=== PATIENT | female | born 1960 | race Caucasian/White ===

== ENCOUNTER → 2017-12-25 13:35 | Outpatient (CLI) | payer MEDICAID, SELFPAY ==
--- NOTE | 2017-12-25 13:40 | RAD_ITS ---
STUDY: X-RAY CHEST REASON FOR EXAM: Female, 57 years old. Follow-up pneumonia. TECHNIQUE: Frontal and lateral views of the chest. COMPARISON: 01/24/2006. FINDINGS: The lungs are clear and expanded. There is no demonstrated pleural abnormality. Normal size heart. Normal mediastinum and ziggy. Normal visualized pulmonary arteries. Normal visualized aortic arch and descending thoracic aorta. Normal visualized thoracic spine. Normal visualized ribs, clavicles, and shoulders. There is no demonstrated abnormality of the visualized soft tissue structures of the upper abdomen. RAD/Chest PA and Lateral IMPRESSION: Normal x-ray examination of the chest. Electronically Signed: Anup Escalante MD at 21:34 EDT , Service support ,
== END ==
DX: J18.9 Pneumonia, unspecified organism (principal)
CPT/HCPCS: 71046

== ENCOUNTER 2018-03-07 12:26 | Emergency (ER) | payer MEDICAID, SELFPAY ==
[2018-03-07 12:27] VITALS: BP 125/83; PULSE 93; RESP 16; TEMP 36.6; O2SAT 99; BMI 27.1
--- NOTE | 2018-03-07 12:43 | ED.DCSUM_ITS ---
- ER Visit Summary Date of Service: 03/07/18 Chief Complaint: Staple removal History of Present Illness: The patient is a 57 F who unbeknownst to her had a staple placed in her left parietal scalp reportedly during a surgery a little over week ago on her back. She went to wash her hair today and felt that and had some a look at it and they said it was a staple so she called the nurses line who advised her to come to emergency department the staple taken out. Physical Examination: Afebrile vital signs are stable The patient has a staple in the left parietal scalp. There is no evidence of infection. Emergency Department Course and Treatment: The staple was removed without difficulty patient will follow up with her doctors. Impression: 1. Staple removal by physician This note was generated with Document [employer] dictation software. It may contain incorrect words, spelling, and punctuation that were not noted in review of the chart prior to signing ED Disposition - Plan for ED Patient: Disposition: Home or Assisted Living Chief Complaint: Suture Remv Instructions: ED Wound Check Sutr Remove No Infec Referrals: Ml Oscar [Primary Care Provider] - As Needed
== END 2018-03-07 12:51 | disposition home or self-care (01) ==
PROVIDERS: Emergency Provider Emergency Medicine
DX: Z48.02 Encounter for removal of sutures (principal); I73.9 Peripheral vascular disease, unspecified; I10 Essential (primary) hypertension; Z87.891 Personal history of nicotine dependence
CPT/HCPCS: 99282

== ENCOUNTER → 2018-12-11 12:55 | Outpatient (CLI) | payer MEDICAID, SELFPAY ==
[2018-12-11 12:23] VITALS: BMI 26.4
--- NOTE | 2018-12-11 12:56 | CT_ITS ---
STUDY: CT CHEST WITHOUT CONTRAST REASON FOR EXAM: Female, 58 years old. History of smoking. RADIATION DOSAGE (If Supplied By Facility): CTDIvol = ( 10.23 ) mGy, DLP = ( 340.02 ) mGycm TECHNIQUE: Transaxial imaging was performed without the administration of intravenous contrast material. Multiplanar coronal and sagittal images were reformatted. Individualized dose optimization techniques were used for this CT. COMPARISON: Chest x-ray December 25, 2017. FINDINGS: There is emphysema of the lungs. There are regions of bronchiectasis in the lower chest. Linear scarring or fibrosis. There is focal wedge-shaped region of scarring or atelectasis in the anterior aspect of the right middle lobe, series 2 image 82/114. There is no dominant mass or nodule. There is no demonstrated pleural abnormality. There are calcifications of the coronary arteries. Normal mediastinum. Normal hilar regions. Normal unenhanced pulmonary arteries. There is atherosclerotic calcification of the aortic arch with tortuosity and elongation of the aortic arch and descending thoracic aorta. There is mild degenerative change of the spine.. There is small hiatal hernia. CT/Chest without Contrast IMPRESSION: Emphysema with bronchiectasis and mild fibrotic densities. No dominant mass Atherosclerosis. Small hiatal hernia. Electronically Signed: Kody Willis MD at 14:00 EDT , Service support ,
== END ==
PROVIDERS: Family Provider Family Medicine; Referring Provider Nurse Practitioner Family; Visit Provider Nurse Practitioner Family
DX: Z12.2 Encounter for screening for malignant neoplasm of respiratory organs (principal); F17.209 Nicotine dependence, unspecified, with unspecified nicotine-induced disorders
CPT/HCPCS: 71250

== ENCOUNTER 2019-01-15 11:30 | Outpatient (RCR) | payer MEDICAID, SELFPAY ==
[2018-12-11 12:23] VITALS: BMI 26.4
== END 2019-01-15 23:59 ==
LOC: PSN 11:30
PROVIDERS: Family Provider Family Medicine; PCP Family Medicine; Referring Provider Nurse Practitioner Family; Visit Provider Nurse Practitioner Family
DX: F17.210 Nicotine dependence, cigarettes, uncomplicated (principal)
CPT/HCPCS: 99407

== ENCOUNTER 2019-02-04 10:44 | Outpatient (RCR) | payer MEDICAID, SELFPAY ==
[2018-12-11 12:23] VITALS: BMI 26.4
== END 2019-02-15 23:59 ==
LOC: PSN 10:44
PROVIDERS: Family Provider Family Medicine; PCP Family Medicine; Referring Provider Nurse Practitioner Family; Visit Provider Nurse Practitioner Family
DX: F17.209 Nicotine dependence, unspecified, with unspecified nicotine-induced disorders (principal)
CPT/HCPCS: 99407

== ENCOUNTER → 2019-10-09 12:34 | Outpatient (CLI) | payer MEDICARE, MEDICAID, SELFPAY ==
[2018-12-11 12:23] VITALS: BMI 26.4
--- NOTE | 2019-10-09 12:55 | RAD_ITS ---
STUDY: X-RAY - LUMBAR SPINE REASON FOR EXAM: Female, 58 years old. chronic low back pain; hx of lumber spinal fusion TECHNIQUE: 3 view(s) of the lumbar spine were obtained. COMPARISON: None FINDINGS: Bilateral posterior pedicle fusions at L3 and L4. L3-4 laminectomies. L3-4 surgical disc space fusion. The the disc spacer extends approximately 7 mm anterior to the anterior disc margin. Levoconvex scoliosis. Degenerative disc disease at the L1-2 and L2-3 levels. No compression fractures are seen. Vascular calcifications. RAD/Lumbar Spine 2 or 3 Views IMPRESSION: Multilevel degenerative disease and postoperative change as described. At L3-4, disc spacer extends approximately 7 mm anterior to the anterior disc margin. Electronically Signed: Jonn Padron MD at 0:39 EST Tel , Service support ,
[2019-10-09 13:45] LABS: Amphetamine Urine VISTA NEGATIVE (<1000 ng/mL); Barbiturate Urine VISTA NEGATIVE (< 200 ng/mL); Benzodiazepine Urine VISTA NEGATIVE (< 200 ng/mL); Cocaine Urine VISTA NEGATIVE (< 300 ng/mL); Ecstacy Urine VISTA POSITIVE (< 500 ng/mL); Methadone Urine VISTA NEGATIVE (< 300 ng/mL); PCP Urine VISTA NEGATIVE (< 25 ng/mL); THC Urine VISTA NEGATIVE (< 50 ng/mL); Vista UDS pH Range 6
== END ==
PROVIDERS: PCP Family Medicine; Referring Provider Anesthesiology Pain Medicine; Visit Provider Anesthesiology Pain Medicine
DX: F11.20 Opioid dependence, uncomplicated (principal); M51.36 Other intervertebral disc degeneration, lumbar region; Z98.1 Arthrodesis status
CPT/HCPCS: 72100; 80307

== ENCOUNTER → 2019-10-16 11:21 | Outpatient (CLI) | payer MEDICARE, SELFPAY ==
[2018-12-11 12:23] VITALS: BMI 26.4
[2019-10-16 12:32] LABS: Amphetamine Urine VISTA NEGATIVE (<1000 ng/mL); Barbiturate Urine VISTA NEGATIVE (< 200 ng/mL); Benzodiazepine Urine VISTA NEGATIVE (< 200 ng/mL); Cocaine Urine VISTA NEGATIVE (< 300 ng/mL); Ecstacy Urine VISTA POSITIVE (< 500 ng/mL); Methadone Urine VISTA NEGATIVE (< 300 ng/mL); PCP Urine VISTA NEGATIVE (< 25 ng/mL); THC Urine VISTA NEGATIVE (< 50 ng/mL); Vista UDS pH Range 5
== END ==
PROVIDERS: PCP Family Medicine; Referring Provider Anesthesiology Pain Medicine; Visit Provider Anesthesiology Pain Medicine
DX: F11.20 Opioid dependence, uncomplicated (principal)
CPT/HCPCS: 80307

== ENCOUNTER → 2020-05-29 | Outpatient (CLI) | payer MEDICARE, SELFPAY ==
[2018-12-11 12:23] VITALS: BMI 26.4
== END | disposition home or self-care (01) ==
LOC: LABSPEC 10:26
PROVIDERS: PCP Family Medicine; Referring Provider Family Medicine; Visit Provider Family Medicine
DX: R69 Illness, unspecified (principal)
CPT/HCPCS: 87635; C9803; U0003

== ENCOUNTER → 2020-06-04 09:00 | Outpatient (CLI) | payer MEDICARE, SELFPAY ==
[2018-12-11 12:23] VITALS: BMI 26.4
== END ==
PROVIDERS: PCP Family Medicine; Referring Provider Family Medicine; Visit Provider Family Medicine
DX: Z20.828 Contact with and (suspected) exposure to other viral communicable diseases (principal); R51 Headache; R19.7 Diarrhea, unspecified
CPT/HCPCS: 87635; C9803; U0003

== ENCOUNTER → 2020-07-13 12:49 | Outpatient (CLI) | payer MEDICARE, SELFPAY ==
[2018-12-11 12:23] VITALS: BMI 26.4
[2020-07-13 14:05] LABS: Amphetamine Urine VISTA NEGATIVE (<1000 ng/mL); Barbiturate Urine VISTA NEGATIVE (< 200 ng/mL); Benzodiazepine Urine VISTA NEGATIVE (< 200 ng/mL); Cocaine Urine VISTA NEGATIVE (< 300 ng/mL); Ecstacy Urine VISTA POSITIVE (< 500 ng/mL); Methadone Urine VISTA NEGATIVE (< 300 ng/mL); PCP Urine VISTA NEGATIVE (< 25 ng/mL); THC Urine VISTA NEGATIVE (< 50 ng/mL); Vista UDS pH Range 5
== END ==
PROVIDERS: PCP Family Medicine; Referring Provider Anesthesiology Pain Medicine; Visit Provider Anesthesiology Pain Medicine
DX: F11.20 Opioid dependence, uncomplicated (principal)
CPT/HCPCS: 80307

== ENCOUNTER → 2020-12-03 10:30 | Outpatient (CLI) | payer MEDICARE, SELFPAY ==
[2018-12-11 12:23] VITALS: BMI 26.4
[2020-12-03 11:52] LABS: Amphetamine Urine VISTA NEGATIVE (<1000 ng/mL); Barbiturate Urine VISTA NEGATIVE (< 200 ng/mL); Benzodiazepine Urine VISTA NEGATIVE (< 200 ng/mL); Cocaine Urine VISTA NEGATIVE (< 300 ng/mL); Ecstacy Urine VISTA POSITIVE (< 500 ng/mL); Methadone Urine VISTA NEGATIVE (< 300 ng/mL); PCP Urine VISTA NEGATIVE (< 25 ng/mL); THC Urine VISTA NEGATIVE (< 50 ng/mL); Vista UDS pH Range 5
== END ==
PROVIDERS: PCP Family Medicine; Referring Provider Anesthesiology Pain Medicine; Visit Provider Anesthesiology Pain Medicine
DX: F11.20 Opioid dependence, uncomplicated (principal)
CPT/HCPCS: 80307

== ENCOUNTER 2020-12-11 14:01 | Outpatient (RCR) | payer MEDICARE, SELFPAY ==
[2018-12-11 12:23] VITALS: BMI 26.4
== END 2021-02-23 23:59 ==
LOC: IMMUN 14:01
PROVIDERS: PCP Family Medicine; Referring Provider Family Medicine; Visit Provider Family Medicine
DX: Z23 Encounter for immunization (principal)
CPT/HCPCS: 0001A; 0002A; 91300

== ENCOUNTER 2021-03-23 16:00 | Outpatient (RCR) | payer MEDICARE, MEDICAID, SELFPAY ==
[2018-12-11 12:23] VITALS: BMI 26.4
--- NOTE | 2021-02-11 16:48 | HP.PTEVAL_ITS ---
Patient's Visit Information JULIANN HIDALGO is a 60 year old F referred to Physical Therapy by Dr. Omer Hall MD with a diagnosis of Back pain, leg pain. Date of Evaluation: 02/11/21 Physical Therapist: Ole Dobbs, DONYAT, OCS, CSCS - Visit Plan Frequency: 2x /Week Duration: 4-6 Weeks Plan: 2x/week for 4-6 weeks for water therapy to include: 1. NS educationa nd core adn LE strength. 2. LB ROM and body mechanics. 3. Progress to I pool or home program. - Subjective L leg hurts wehn she walks or stands adn foot goes numb. That has been happening over a year. Also has back pain which is getting under control with injections and meds. LBP to 7/10 with bending for a period of time. Leg worse with stadning in one spot or walking too far. (>300 feet). Sleep is not a problem. Activities are effected in that cooking or standing in kitchen requires sitting breaks to get rid of numbness. Hard to go for walk for fitness but it hurts too much. Has to sit frequently. Not employed, disability from back. Has had back back surgery int he past but it has been a while4 years and has not seen surgeon lately. Already told she will need another surgery. Basic ADLS are going ok. Hobbies include outdoor work but is limited. - Pain LBP Pain Intensity (Out of 10): 0 Pain Intensity Range: 0, 7 L leg pain Pain Intensity (Out of 10): 1 Pain Intensity Range: 0, 9 Comment: L foot intermittently numb - Objective Walks well adn I, trasnfers I. Steps reciprocal without pain. L LB gets painful walking after about 300 feet. LB AROM ext mod limited and painful, flexion just stretchy, SB min limited and without pain. reflexes 2/3 patella an d achilles. Sensation LE WNL to gross light touch. Strength LE hips 3+, knees 4- adn ankles 4 without myotoaml problems. PA tenderness low back with mod pressure. Tenderness in soft tissue not apparent. Posture is kyphotic at T/S. - Goals Goal 1:: Back pain 50% vbetter adn 4/10 at worst and manageable Goal Time Frame: 4-6 Weeks Goal 2:: LEFS 50/80 Goal Time Frame: 4-6 Weeks Goal 3:: Pt I in appropriate ex to manage condition Goal Time Frame: 4-6 Weeks Goal 4:: abolish leg symptoms Goal Time Frame: 4-6 Weeks - Rehabilitation Potential Physical Therapy Diagnosis: Likely radiculopathy effecting mobility. Rehabilitation Potential: Fair - Anticipated Interventions Patient/Client Instruction: Educate patient on: Condition For the Purpose of:: To decrease pain, To increase ROM Therapeutic Exercise to Include: Strength training, Postural training, Flexibilty training, Gait and locomotor training, In an aquatic setting, Passive ROM, Active ROM, Dynamic Lumbar Stabilization For the Purpose of:: To decrease pain, To increase ROM, To improve muscle performance and motor function, To increase tolerance to activity/condition/position, To improve ability of physical actions for home/community/work/leisure Thank you for the opportunity to evaluate your patient. For Medicare and Medicare HMO plans, please review the plan of care and approve it. It will need to be FAXED BACK to us at [phone] for Medicare purposes. For Medicare only, by signing this I certify the plan of care. Please let me know if there are questions or concerns regarding this plan of care. Physician Signature: Date:
--- NOTE | 2021-03-23 16:23 | HP.PTREVAL_ITS ---
Dr. Omer Hall MD, It has been my pleasure to treat JULIANN HIDALGO over the last 8 visits for Back pain, leg pain. Please see the progress note below for an update on the physical therapy plan of care! Subjective: Pool did not help that much. Pain is still in LB at 4/10, L leg still hurts intermittently with stadning to 8/10 with foot numbness. Gone with sitting. To in a couple days. May get another MRI after approved by insurance. Objective/Function: LB ext max limited and painful mid LB. Flexion full and without pain. SB are OK. rotations are not apinful. Walking >300 feet still brings pain to leg. repeated PPU no effect. Plan Plan: d/c, pt back to doctor next week appropriately as therapy is not helping and she wishes to take next step(MRI?) vs continue therapy. Goals Goal 1:: Back pain 50% vbetter adn 4/10 at worst and manageable Goal Time Frame: 4-6 Weeks Goal Progress: Not Progressing Goal 2:: LEFS 50/80 Goal Time Frame: 4-6 Weeks Goal Progress: Not Progressing Goal 3:: Pt I in appropriate ex to manage condition Goal Time Frame: 4-6 Weeks Goal Progress: Not Progressing Goal 4:: abolish leg symptoms Goal Time Frame: 4-6 Weeks Goal Progress: Not Progressing Anticipated Interventions Patient/Client Instruction: Educate patient on: Condition For the Purpose of:: To decrease pain, To increase ROM Therapeutic Exercise to Include: Strength training, Postural training, Flexibilty training, Gait and locomotor training, In an aquatic setting, Pass cathy ROM, Active ROM, Dynamic Lumbar Stabilization For the Purpose of:: To decrease pain, To increase ROM, To improve muscle performance and motor function, To increase tolerance to activity/condition/position, To improve ability of physical actions for home/community/work/leisure Please do not hesitate to contact me at [phone] by phone or if you have questions or concerns regarding this new plan of care! Sincerely, Ole Dobbs, DPT, OCS, CSCS
--- NOTE | 2021-07-01 09:56 | HP.PTDCSUM ---
It has been my pleasure to treat JULIANN HIDALGO referred by Dr. Omer Hall MD, with the diagnosis of Back pain, leg pain for a total of 8 visit(s). Discharge Date: 03/23/21 Please see the following information for a summary of their discharge status. Subjective: Pool did not help that much. Pain is still in LB at 4/10, L leg still hurts intermittently with stadning to 8/10 with foot numbness. Gone with sitting. To in a couple days. May get another MRI after approved by insurance. LBP Pain Intensity (Out of 10): 4 L leg pain Pain Intensity (Out of 10): 0 % Improvement: 0 Objective/Function: LB ext max limited and painful mid LB. Flexion full and without pain. SB are OK. rotations are not apinful. Walking >300 feet still brings pain to leg. repeated PPU no effect. Goal 1:: Back pain 50% vbetter adn 4/10 at worst and manageable Goal Progress: Not Progressing Goal 2:: LEFS 50/80 Goal Progress: Not Progressing Goal 3:: Pt I in appropriate ex to manage condition Goal Progress: Not Progressing Goal 4:: abolish leg symptoms Goal Progress: Not Progressing Plan: d/c, pt back to doctor next week appropriately as therapy is not helping and she wishes to take next step(MRI?) vs continue therapy. Discharge Comments: Pt back to doctor for next medical step, does nto wish to continue therapy in water which has not helped to this point or trasnition to land ex. If there are questions or concerns regarding this patient's physical therapy, please feel free to call me at [phone]. Thank you for the referral of this patient. Sincerely, Ole Dobbs, DPT, OCS, CSCS Balance/Gait/Functional tests - Balance/Special Test Scores Lower Extremity Functional Score: 31
== END 2021-03-23 19:00 | disposition home or self-care (01) ==
LOC: PT 16:00
PROVIDERS: PCP Family Medicine; Visit Provider Anesthesiology Pain Medicine
DX: M54.9 Dorsalgia, unspecified (principal); M79.606 Pain in leg, unspecified
CPT/HCPCS: 97110; 97113; 97162; 97164

== ENCOUNTER → 2021-04-10 07:15 | Outpatient (CLI) | payer MEDICARE, MEDICAID, SELFPAY ==
[2018-12-11 12:23] VITALS: BMI 26.4
--- NOTE | 2021-04-10 07:30 | MRI_ITS ---
STUDY: MRI LUMBAR SPINE WITHOUT CONTRAST REASON FOR EXAM: Female, 60 years old. BACK AND LEFT LEG PAIN TECHNIQUE: Standardized fat and water weighted pulse sequences were obtained in the sagittal and axial following administration of . COMPARISON: None FINDINGS: Examination is mildly technically limited due to presence of metallic artifact obscuring L3 and L4 posterior elements. This can be further evaluated with CT. T11-T12: Normal endplates. Normal disc height, hydration and morphology. Normal bilateral facet joints. Normal central canal and bilateral lateral recesses. Normal bilateral intervertebral neural foramina. T12-L1: Normal endplates. Normal disc height, hydration and morphology. Normal bilateral facet joints. Normal central canal and bilateral lateral recesses. Normal bilateral intervertebral neural foramina. Conus medullaris terminates at L1 with normal cauda equina. L1-2: Mildly degenerated endplates. Severely decreased disc height, altered hydration and degenerative bulge morphology asymmetrically worse on the right. Normal bilateral facet joints. Normal central canal and bilateral lateral recesses. Normal bilateral intervertebral neural foramina. L2-3: Degenerated endplates. Normal disc height, altered hydration and degenerative bulge morphology. Normal bilateral facet joints. Canal is moderately stenotic. Foramina are severely stenotic on the right and mildly on the left. L3-4: Mildly degenerated endplates. Decreased disc height, altered hydration and asymmetric to the right degenerative bulge morphology. Normal bilateral facet joints. Canal is patent and widely decompressed with a laminectomy. Right foramen is severely stenotic and left is patent. L4-5: Mildly degenerated endplates. Normal disc height, hydration and morphology. Normal bilateral facet joints. Normal central canal and bilateral lateral recesses. Left foramen is moderately to severely stenotic, right is patent. L5-S1: Normal endplates. Normal disc height, altered hydration and degenerative bulge morphology. Normal bilateral facet joints. Normal central canal and bilateral lateral recesses. Normal bilateral intervertebral neural foramina. Normal visualized sacral ala. Normal visualized paraspinous soft tissue structures. MRI/Spine Lumbar (Routine) IMPRESSION: 1. L3-L4 laminectomy decompression with patent thecal sac and pedicular screw fusion. 2. Moderate L2-L3 spondylotic thecal sac stenosis. 3. Multilevel foraminal stenosis. 4. Consider CT for more definitive evaluation of hardware and adjacent bone. Electronically Signed: Sandra Jj MD at 16:56 EDT Tel , Service support ,
== END ==
PROVIDERS: PCP Family Medicine; Referring Provider Anesthesiology Pain Medicine; Visit Provider Anesthesiology Pain Medicine
DX: M47.816 Spondylosis without myelopathy or radiculopathy, lumbar region (principal); M48.061 Spinal stenosis, lumbar region without neurogenic claudication
CPT/HCPCS: 72148

== ENCOUNTER → 2021-08-10 14:13 | Outpatient (CLI) | payer MEDICARE, MEDICAID, SELFPAY ==
[2021-08-10 15:35] LABS: Amphetamine Urine VISTA NEGATIVE (<1000 ng/mL); Barbiturate Urine VISTA NEGATIVE (< 200 ng/mL); Benzodiazepine Urine VISTA NEGATIVE (< 200 ng/mL); Cocaine Urine VISTA NEGATIVE (< 300 ng/mL); Ecstacy Urine VISTA POSITIVE (< 500 ng/mL); Methadone Urine VISTA NEGATIVE (< 300 ng/mL); PCP Urine VISTA NEGATIVE (< 25 ng/mL); THC Urine VISTA NEGATIVE (< 50 ng/mL); Vista UDS pH Range 5
== END ==
PROVIDERS: PCP Family Medicine; Visit Provider Anesthesiology Pain Medicine
DX: F11.20 Opioid dependence, uncomplicated (principal)
CPT/HCPCS: 80307

== ENCOUNTER → 2022-06-22 | Outpatient (CLI) | payer MEDICARE, MEDICAID, SELFPAY ==
[2022-06-22 12:14] LABS: Amphetamine Urine VISTA NEGATIVE (<1000 ng/mL); Barbiturate Urine VISTA NEGATIVE (< 200 ng/mL); Benzodiazepine Urine VISTA NEGATIVE (< 200 ng/mL); Cocaine Urine VISTA NEGATIVE (< 300 ng/mL); Ecstacy Urine VISTA POSITIVE (< 500 ng/mL); Methadone Urine VISTA NEGATIVE (< 300 ng/mL); PCP Urine VISTA NEGATIVE (< 25 ng/mL); THC Urine VISTA NEGATIVE (< 50 ng/mL); Vista UDS pH Range 5
== END | disposition home or self-care (01) ==
PROVIDERS: PCP Family Medicine; Referring Provider Anesthesiology Pain Medicine; Visit Provider Anesthesiology Pain Medicine
DX: F11.20 Opioid dependence, uncomplicated (principal)
CPT/HCPCS: 80307

== ENCOUNTER → 2023-01-10 | Outpatient (CLI) | payer MEDICARE, MEDICAID, SELFPAY ==
[2023-01-10 14:00] LABS: Amphetamine Urine VISTA NEGATIVE (<1000 ng/mL); Barbiturate Urine VISTA NEGATIVE (< 200 ng/mL); Benzodiazepine Urine VISTA NEGATIVE (< 200 ng/mL); Cocaine Urine VISTA NEGATIVE (< 300 ng/mL); Ecstacy Urine VISTA POSITIVE (< 500 ng/mL); Methadone Urine VISTA NEGATIVE (< 300 ng/mL); PCP Urine VISTA NEGATIVE (< 25 ng/mL); THC Urine VISTA NEGATIVE (< 50 ng/mL); Vista UDS pH Range 6
== END | disposition home or self-care (01) ==
PROVIDERS: PCP Family Medicine; Referring Provider Anesthesiology Pain Medicine; Visit Provider Anesthesiology Pain Medicine
DX: F11.20 Opioid dependence, uncomplicated (principal)
CPT/HCPCS: 80307

== ENCOUNTER → 2024-01-11 | Outpatient (CLI) | payer MEDICARE, MEDICAID, SELFPAY ==
[2024-01-11 17:05] LABS: Amphetamine Urine VISTA NEGATIVE (<1000 ng/mL); Barbiturate Urine VISTA NEGATIVE (< 200 ng/mL); Benzodiazepine Urine VISTA NEGATIVE (< 200 ng/mL); Cocaine Urine VISTA NEGATIVE (< 300 ng/mL); Ecstacy Urine VISTA POSITIVE (< 500 ng/mL); Methadone Urine VISTA NEGATIVE (< 300 ng/mL); PCP Urine VISTA NEGATIVE (< 25 ng/mL); THC Urine VISTA NEGATIVE (< 50 ng/mL); Vista UDS pH Range 4
== END | disposition home or self-care (01) ==
PROVIDERS: PCP Family Medicine; Referring Provider Anesthesiology Pain Medicine; Visit Provider Anesthesiology Pain Medicine
DX: F11.20 Opioid dependence, uncomplicated (principal)
CPT/HCPCS: 80307

== ENCOUNTER → 2024-09-23 | Outpatient (CLI) | payer MEDICARE, MEDICAID, SELFPAY ==
--- NOTE | 2024-09-23 12:12 | RAD_ITS ---
STUDY: X-RAY - CERVICAL SPINE REASON FOR EXAM: Female, 63 years old. NECK PAIN TECHNIQUE: 2 view(s) of the cervical spine were obtained. COMPARISON: None FINDINGS: Normal anterior atlantoaxial articulation. Normal odontoid process. There is anatomic alignment of the C-spine from C1 to C3. 3 to 4 mm of posterior subluxation of C4 on C3. C4 and C5 with interbody fusion. There is 2 to 3 mm of anterior subluxation of C6 on C5. There is anatomic alignment from C6 to T1. There is straightening of the normal cervical lordosis, likely positional or due to pain. Normal vertebral bodies and endplates. There is multi-level degenerative disc disease with multilevel disc space narrowing. There is a normal relationship between C7 and T1 The soft tissue structures are unremarkable. RAD/Cerv Spine 2 or 3 Views IMPRESSION: Multilevel degenerative changes with chronic subluxations at no acute fracture or suspicious osseous lesion Electronically Signed: Jose Givens MD at 15:29 EST ,
== END | disposition home or self-care (01) ==
LOC: RAD 12:07
PROVIDERS: PCP Family Medicine; Referring Provider Anesthesiology Pain Medicine; Visit Provider Anesthesiology Pain Medicine
DX: M54.2 Cervicalgia (principal)
CPT/HCPCS: 72040

== ENCOUNTER → 2024-11-11 | Outpatient (CLI) | payer MEDICARE, SELFPAY ==
--- NOTE | 2024-11-11 09:38 | MRI_ITS ---
PROCEDURE: MRI lumbar spine without IV contrast REASON FOR EXAM: Pain, radiculopathy TECHNIQUE: Multisequence multiplanar MR images of the lumbar spine were obtained without the administration of intravenous contrast. COMPARISON: 04/10/2021 FINDINGS: Vertebral body heights are within normal limits. Negative for acute fracture or marrow replacement. Moderate degenerative endplate edema from L1-L3. Posterior fusion hardware at L3-4 with posterior decompression. Mild levoscoliosis. Conus medullaris is intact and terminates at L1. Moderate paraspinal muscle atrophy. L1-2: Diffuse posterior disc bulge. Mild bilateral facet arthrosis. Mild spinal stenosis. Moderate bilateral foraminal narrowing. L2-3: Diffuse posterior disc bulge eccentric to the right. Mild bilateral facet arthrosis and ligamentum flavum hypertrophy. Moderate spinal stenosis. Severe right and moderate left foraminal narrowing. L3-4: No focal disc abnormality or spinal stenosis. No left foraminal narrowing. Right neural foramen is poorly visualized due to susceptibility artifact from fixation hardware. L4-5: Posterior disc bulge eccentric to the left with annular fissure. Mild/moderate bilateral facet arthrosis. No significant spinal stenosis, however there is mild narrowing of the left lateral recess. Severe left and mild right foraminal narrowing. L5-S1: No focal disc abnormality, spinal stenosis or foraminal narrowing. Mild bilateral facet arthrosis. MRI/Spine Lumbar (Routine) IMPRESSION: 1. Acquired mild and moderate spinal stenosis at L1-2 and L2-3 respectively. 2. Acquired multilevel foraminal narrowing, severe on the right at L2-3 and on the left at L4-5. 3. Posterior fusion/decompression at L3-4. 4. Levoscoliosis. Reading Location: [facility]
== END | disposition home or self-care (01) ==
LOC: MRI 12:37
PROVIDERS: PCP Family Medicine; Referring Provider Student in an Organized Health Care Education/Training Program; Visit Provider Student in an Organized Health Care Education/Training Program
DX: M48.061 Spinal stenosis, lumbar region without neurogenic claudication (principal); Z98.1 Arthrodesis status
CPT/HCPCS: 72148

== ENCOUNTER 2025-04-02 23:05 | Emergency (ER) | payer MEDICARE, SELFPAY ==
[2025-04-02 23:05] VITALS: BP 162/92; PULSE 91; RESP 16; TEMP 36.8; O2SAT 94; BMI 26.1
--- NOTE | 2025-04-02 23:40 | EX.ED.DYSGE1 ---
HPI History of Present Illness Chief Complaint: Other, Pain/Inj Informant: patient and EMS Narrative Narrative: Patient is a 64-year-old female with past medical of hypertension hyperlipidemia and depression. She states she went to bed roughly 4 days ago as she normally would. When she awoke she noticed pain in tension in the left side of her neck. She states that she has been trying [id number] medications but she feels that the tension and pain has just worsened. She states to the point where she has a hard time turning her head secondary to the pain. She denies any trauma prior to the pain began. She denies any fevers or chills or sore throat. She denies any numbness tingling or weakness. However as her symptoms are not resolving she presents for evaluation [facility] Medical History Acid reflux Depression Hypertension High cholesterol Home Medications ?Medication ?Instructions ?Recorded ?Last Taken ?Type duloxetine 60 mg capsule,delayed 60 mg PO DAILY 12/11/18 Unknown History release (Cymbalta) pravastatin 10 mg tablet 10 mg PO DAILY 12/11/18 Unknown History pregabalin 100 mg capsule (Lyrica) 100 mg PO Q8H 12/11/18 Unknown History lisinopril 10 mg tablet 5 mg PO QDAY 10/07/24 Unknown History omeprazole 40 mg capsule,delayed 40 mg PO QDAY 10/07/24 Unknown History release tramadol 50 mg tablet 50 mg PO BID 10/07/24 Unknown History diazepam 5 mg tablet (Valium) 5 mg PO TID PRN muscle spasm 5 04/02/25 Unknown Rx days #15 tabs levothyroxine 25 mcg tablet 25 mcg PO DAILY 04/02/25 Unknown History oxycodone-acetaminophen 5 mg-325 1 tab PO Q6H PRN pain 3 days #12 04/02/25 Unknown Rx mg tablet (Percocet) tabs Allergy/AdvReac Type Severity Reaction Status Date / Time atorvastatin (From Lipitor) Allergy Severe Other Verified 04/02/25 23:08 cat dander Allergy Other Verified 04/02/25 23:08 Iodinated Contrast Media Allergy Angioedema Verified 04/02/25 23:08 (Iodinated Contrast- Oral and IV Dye) Family History Father Hypertension Mother Hypertension Surgical History H/O: hysterectomy Previous back surgery Social History Smoking Status: Current every day smoker tobacco type: cigarettes Tobacco: How many years used: 43 second hand exposure: No quit status: has quit before ROS ROS ED Constitutional Constitutional ED: Denies chills or fever(s) Eyes Eyes: Denies blurry vision or change in vision ENT ENT ED: Denies sore throat Cardiovascular Cardiovascular: Denies chest pain Respiratory/Chest Respiratory/Chest: Denies cough or dyspnea Gastrointestinal Gastrointestinal: Denies abdominal pain, diarrhea, nausea or vomiting Musculoskeletal Musculoskeletal: Reports neck pain Integumentary Denies Abrasions or rash Neurologic Neurologic: Denies headache(s), paresthesias or weakness Psychiatric Psychiatric: Reports depression Hematologic/Lymphatic Hematologic/Lymphatic: Denies easy bleeding or easy bruising Allergic/Immunologic Allergic/Immunologic ED: Denies mouth swelling or tongue swelling EXAM Physical Exam Const Vital Signs: 04/02/25 23:05 04/03/25 00:03 Temperature 98.3 F 98.0 F Temperature Source Oral Pulse Rate 91 73 Respiratory Rate 16 16 Blood Pressure 162/92 H 144/76 H Blood Pressure Mean 115 98 Pulse Ox 94 100 Positive well nourished and well developed General Appearance ED: well developed; Negative for pallor HEENT Reports moist mucous membranes HEENT Narrative: Normocephalic atraumatic No tongue or lip swelling no oral lesions no airway edema or compromise No secondary findings in the posterior pharynx to suggest infection Eyes PERRL and EOMs intact bilaterally General Eye ED: Negative for scleral icterus Neck Neck Narrative: No bony deformity or step-off of the cervical spine no midline tenderness to palpation There is left paracervical tension and spasm noted. Pain worsens with sidebending and rotation. No overlying soft tissue changes such as erythema warmth induration or fluctuance. No crepitus palpated. No meningeal signs present Resp normal respiratory effort and clear to auscultation bilaterally Cardio regular rate and regular rhythm Extremity normal to inspection Neuro oriented x3, CN's II-XII intact bilaterally and no sensory deficits noted Sensorium / Orientation: alert Motor Exam: strength 5/5 throughout Psych mental status grossly normal Skin no rashes or lesions noted and no wounds General Skin Exam: Negative for jaundice or pallor MDM MDM MDM Narrative Medical decision making narrative: Patient arrives here hypertensive but has a past medical history of this. She reported increasing/persistent left-sided neck pain with no trauma. On exam there is no midline tenderness and without trauma I have low concern for a compression fracture or spondylolisthesis. There is no overlying erythema or warmth induration or fluctuance to suggest cellulitis or abscess. Posterior pharynx exam does not show any type of secondary infection such as peritonsillar or retropharyngeal abscess. By exam there is tension and spasm present with pain with palpation that worsens with sidebending and rotation and this correlates with the fact that she awoke from sleep with her symptoms indicating she has an SCM spasm. Therefore this time there is no need for imaging or further testing and seeing be treated symptomatically and is otherwise safe for discharge History & Record Review Discussion w/independent historian: Patient Discharge Plan Triage Chief Complaint: Other, Pain/Inj ED Provider: Laz James Dx/Rx/DC Orders Clinical Impression: Spasm of cervical paraspinous muscle, Hypertension, Hyperlipidemia Instructions: ED Neck Spasm, No Trauma Prescriptions: New diazepam [Valium] 5 mg tablet 5 mg PO TID PRN (Reason: muscle spasm) 5 Days Qty: 15 0RF oxycodone-acetaminophen [Percocet] 5-325 mg tablet 1 tab PO Q6H PRN (Reason: pain) 3 Days Qty: 12 0RF No Action pregabalin [Lyrica] 100 mg capsule 100 mg PO Q8H duloxetine [Cymbalta] 60 mg capsule,delayed release(DR/EC) 60 mg PO DAILY pravastatin 10 mg tablet 10 mg PO DAILY lisinopril 10 mg tablet 5 mg PO QDAY omeprazole 40 mg capsule,delayed release(DR/EC) 40 mg PO QDAY tramadol 50 mg tablet 50 mg PO BID levothyroxine 25 mcg tablet 25 mcg PO DAILY Primary Care Provider: Roger Wilburn Referrals: Roger Wilburn MD [Primary Care Provider] - Activity Restrictions/Additional Instructions: Your history and exam is consistent with a spasm to your SCM muscle belly. You need to continue to stretch and heat the area to reduce pain and speed healing. Add the prescribed medications from the ER to help control symptoms and return should you have any further concerns. It will typically take 7 to 14 days for your symptoms to completely improve Print Language: Mauritanian Disposition Disposition: Home, Self Care Discharge Date/Time: 04/03/25 02:17
--- OUTSIDE RECORDS SUMMARY | 2025-04-02 23:53 | XMS RPT_ITS | CCD ---
Author Organization [facility] Care Team Providers Care Youth Accommodation Support Worker Name Role Phone Negrito Wilburn MD Primary Care Provider Negrito Wilburn MD Primary Care Provider Lorenza Major DO Unavailable LORENZA MAJOR Attending Unavailab le HARPSTERSURJITTATYANA Referring Unavailable MATTLEY, CHRISTOPHER B Primary Care Unavailab le Podlogar DESTINATION SIGN REPAIRER.Jessica WANG Unavailable Bursley, Roger Primary Care Unavailable Evelyn, Kate Attending Unavailable Evelyn, Kate Referring Unavailable Basali, Ayman Referring Unavailable Bursley, Roger Primary Care Unavailable Basali, Ayman Attending Unavailable Basali, Ayman Referring Unavailable Bursley, Roger Primary Care Unavailable Basali, Ayman Attending Unavailable Bursley, Roger Primary Care Unavailable Bursley, Roger Referring Unavailable Evelyn, Kate Attending Unavailable George Rowland Attending Unavailable Bursley, Roger Primary Care Unavailable [place] DESTINATION SIGN REPAIRER.Jeanne WANG Unavailable [place] DESTINATION SIGN REPAIRER.Jeanne WANG Unavailable [place] DESTINATION SIGN REPAIRER.Jeanne WANG Unavailable PODLOGARJESSICA Referring Unavailable MATTLEY, CHRISTOPHER B Primary Care Unavailab le PODLOGARJESSICA Referring Unavailable BURSLEY, CHRISTOPHER B Primary Care Unavailab le PODLOGAR, JESSICA Referring Unavailable MATTLEY, CHRISTOPHER B Primary Care Unavailab le MATTLEY, CHRISTOPHER B Referring Unavailab le BURSLEY, CHRISTOPHER B Primary Care Unavailab le PODLOGAR, JESSICA Referring Unavailable BURSLEY, CHRISTOPHER B Primary Care Unavailab le PODLOGAR, JESSICA Referring Unavailable NEGRITO WILBURN Primary Care Unavailab le PODLOGAR, JESSICA Attending Unavailable NEGRITO WILBURN Primary Care Unavailab mundo WILLS, ALFRED Attending Unavailable ALFRED WILLS Referring Unavailable NEGRITO WILBURN Primary Care Unavailab le KNOBLE, JEANNE Referring Unavailable NEGRITO WILBURN Primary Care Unavailab le PODLOGAR, JESSICA Referring Unavailable NEGRITO WILBURN Primary Care Unavailab le PODLOGAR, JESSICA Attending Unavailable NEGRITO WILBURN Primary Care Unavailab le NEGRITO WILBURN Attending Unavailab le NEGRITO WILBURN Primary Care Unavailab le PODLOGAR, JESSICA Attending Unavailable NEGRITO WILBURN Primary Care Unavailab le PODLOGAR, JESSICA Referring Unavailable NEGRITO WILBURN Primary Care Unavailab le PODLOGAR, JESSICA Referring Unavailable NEGRITO WILBURN Primary Care Unavailab le [place] DESTINATION SIGN REPAIRER.COLD ROLLING SUPERVISOR, Jeanne Unavailable Allergies Allergy Classification Reported Allergen(s) Allergy Type Date of Onset Reaction(s) Facility Contrast Media (1 source) Contrast media Substance Allergy [address] [facility] HMG-CoA Reductase Inhibitors (statins) (1 source) atorvastatin Drug Allergy Other: See Comments [facility] (20 sources) atorvastatin; Translations: [ATORVASTATIN CALCIUM] Drug Allergy Other: See Comments [facility] (20 sources) Contrast media; Translations: [CONTRAST DYE] Drug Allergy [address] [facility] (2 sources) atorvastatin Drug Allergy 9 Other [facility] (2 sources) Triiodobenzoic Acids Allergy to substance 9 Angioedema [facility] (1 source) atorvastatin Drug Allergy 5 [facility] (1 source) Iodinated Contrast Media Drug allergy (disorder) 5 [facility] (1 source) cat dander Drug allergy (disorder) 5 [facility] Medications Current Medications Medication Drug Class(es) Dates Sig (Normalized) Sig (Original) [id number] 200 actuat albuterol 0.09 mg/actuat metered dose inhaler (20 sources) beta2-Adrenergic Agonist Start: 09-07-2023 take 2 puff(s) by inhalation every four hours as needed for wheezing albuterol HFA (VENTOLIN HFA) 90 mcg/actuation inhaler Indications: Suspected COVID-19 virus infection , COPD with exacerbation (HCC) Inhale 2 Puffs as instructed every 4 hours as needed for wheezing/shortnes s of breath. 1 Each 2 09/07/2023 Active Comment on above: Inhale 2 Puffs as in structed every 4 hours as needed for wheezing/shortness of breath. amoxicillin 875 mg / clavulanate 125 mg oral tablet (1 source) Penicillin-class Antibacterial Start: 08-07-2023 End: 08-14-2023 take 1 tablet by mouth twice daily amoxicillin-clavu lanate potassium (AUGMENTIN) 875-125 mg per tablet Indications: Upper respiratory tract infection, unspecified type Take 1 tablet by mouth two times a day for 7 days. 14 tablet 0 08/07/2023 08/14/2023 Active Comment on above: Take 1 tablet by cee two times a day for 7 days. benzonatate 100 mg oral capsule (1 source) Non-narcotic Antitussive Start: 08-07-2023 End: 08-17-2023 take 2 capsules by mouth three times daily as needed benzonatate (TESSALON PERLE) 100 mg capsule Indications: Upper respiratory tract infection, unspecified type Take 2 capsules by mouth three times a day as needed for up to 10 days. 60 capsule 0 08/07/2023 08/17/2023 Active Comment on above: Take 2 capsules by out three times a day as needed for up to 10 days. betamethasone 0.5 mg/ml / clotrimazole 10 mg/ml topical cream (2 sources) Azole Antifungal, Corticosteroid Start: 01-27-2025 End: 02-10-2025 clotrimazole-beta methasone (LOTRISONE) cream Apply to affected area two times a day for 14 days. 45 g 01/27/2025 02/10/2025 Active Budesonide / formoterol (20 sources) Corticosteroid, beta2-Adrenergic Agonist Start: 01-08-2025 End: 07-07-2025 take 2 puff(s) by inhalation twice daily budesonide-formot wai (SYMBICORT) 80-4.5 mcg/actuation inhaler Indications: Chronic obstructive pulmonary disease, unspecified COPD type (HCC) Inhale 2 puffs as instructed two times a day. 14 g 5 01/08/2025 07/07/2025 Active Start: 11-09-2023 End: 01-08-2025 take 2 puff(s) by inhalation twice daily budesonide-formoterol (SYMBICORT) 80-4.5 mcg/actuation inhaler Indications: Chronic obstructive pulmonary disease, unspecified COPD type (HCC) Inhale 2 Puffs as instructed two times a day. 14 g 5 11/09/2023 01/08/2025 Discontinued Start: 11-09-2023 take 2 puff(s) by in halation twice daily budesonide-formoterol (SYMBICORT) 80-4.5 mcg/actuation inhaler Indications: Chronic obstructive pulmonary disease, unspecified COPD type (HCC) Inhale 2 Puffs as instructed two times a day. 14 g 5 11/09/2023 Active Start: 11-09-2023 End: 05-07-2024 take 2 puff(s) by inhalation twice daily budesonide-formoterol (SYMBICORT) 80-4.5 mcg/actuation inhaler Indications: Chronic obstructive pulmonary disease, unspecified COPD type (HCC) Inhale 2 Puffs as instructed two times a day. 14 g 5 11/09/2023 05/07/2024 Active Comment on above: Inhale 2 Puffs as in structed two times a day. 24 hr buPROPion hydrochloride 300 mg extended release oral tablet (20 sources) Aminoketone Start: End: take 1 tablet by mouth once daily buPROPion XL (WELLBUTRIN XL) 300 mg 24 hr tablet Indications: Recurrent major depressive disorder, in partial remission Take 1 tablet by mouth once daily. 90 tablet 1 09/24/2024 Active Start: 03-07-2022 End: 09-11-2023 take 1 tablet by mouth once daily buPROPion XL (WELLBUTRIN XL) 300 mg 24 hr tablet Indications: Recurrent major depressive disorder, in partial remission (HCC) Take 1 tablet by mouth once daily. 90 tablet 1 09/02/2022 03/15/2023 Discontinued Start: 09-03-2021 End: 03-07-2022 take 1 tablet by mouth once daily buPROPion XL (WELLBUTRIN XL) 150 mg 24 hr tablet Indications: Recurrent major depressive disorder, in partial remission (HCC) Take 1 tablet by mouth once daily. 30 tablet 5 09/03/2021 03/07/2022 Discontinued Start: 12-11-2018 take 1 tablet by cee twice daily Bupropion Hcl (Wellbutrin Sr) 100 mg tablet sustained-release 12 hr Active 100 MG PO TWICE A DAY December 11, 2018 12:00am Comment on above: Take 1 tablet by cee once daily. cephalexin 500 mg oral capsule (7 sources) Cephalosporin Antibacterial Start: End: take 1 capsule by mouth three times daily cephALEXin (KEFLEX) 500 mg capsule Indications: Pain of right thumb Take 1 capsule by mouth three times a day for 5 days. 15 capsule 06/05/2024 06/10/2024 Active Start: 11-19-2023 End: 11-26-2023 take 1 capsule by mouth twice daily cephALEXin (KEFLEX) 500 mg capsule Take 1 capsule by mouth two times a day for 7 days. 14 capsule 0 11/19/2023 11/26/2023 Active Comment on above: Take 1 capsule by mo [facility] two times a day for 7 days. cholecalciferol 0.05 mg oral capsule (20 sources) Vitamin D Start: 02-26-20 15 take 1 tablet by mouth once daily Cholecalciferol, Vitamin D3, 2,000 unit cap Take 1 tablet by mouth once daily. 0 02/25/2015 Active Comment on above: Take 1 tablet by cee once daily. levothyroxine sodium 0.025 mg oral tablet (15 sources) l-Thyroxine Start: 12-13-19 25 End: 03-13-20 25 take 1 tablet by mouth once daily levothyroxine (SYNTHROID) 25 mcg tablet Indications: Elevated TSH Take 1 tablet by mouth once daily. 90 tablet 2 03/14/2025 Active metFORMIN hydrochloride 500 mg oral tablet (20 sources) Biguanide Start: 10-16-19 End: 07-07-20 25 take 1 tablet by mouth twice daily at mealtime metFORMIN (GLUCOPHAGE) 500 mg tablet Indications: Prediabetes Take 1 tablet by mouth two times a day with meals. . 180 tablet 1 01/08/2025 07/07/2025 Active Start: 09-03-2021 End: 10-04-2023 take 1 tablet by mouth twice daily at mealtime metFORMIN (GLUCOPHAGE) 500 mg tablet Indications: Prediabetes Take 1 tablet by mouth twice daily with meals. . 180 tablet 1 09/02/2022 04/07/2023 Discontinued Comment on above: Take 1 tablet by cee twice daily with meals. . [facility] two times a [facility] with meals. . nitroglycerin 0.4 mg sublingual tablet (20 sources) Nitrate Vasodilator Start: 02-17-20 nitroglycerin sublingual (NITROSTAT) 0.4 mg SL tablet Indications: Chest pain, unspecified type Dissolve 1 tablet under the tongue every 5 minutes as needed for chest pain. 25 tablet 02/16/2023 Active Comment on above: Dissolve 1 tablet un raoul the tongue every 5 minutes as needed for chest pain. polyethylene glycol 3350 112018 mg / potassium chloride 2970 mg / sodium bicarbonate 6740 mg / sodium chloride 5860 mg / sodium sulfate 18712 mg powder for oral solution (1 source) Osmotic Laxative Start: 11-24-19 End: 11-24-19 peg 3350-Electrolytes (GOLYTELY) 236-22.74-6.74 -5.86 gram suspension Indications: Screening for colon cancer , Tubulovillous adenoma Take 4,000 mL by mouth one time only for 1 dose. Refer to printed prep instructions from your provider. 4000 mL 0 11/24/2023 11/24/2023 Active Comment on above: Take 4,000 mL by [facility] one time only for 1 dose. Refer to printed prep instructions from your provider. pregabalin 100 mg oral capsule (20 sources) Start: 12-12-19 End: 09-03-20 take 1 capsule by mouth twice daily, then take 1 capsule by mouth three times daily pregabalin (LYRICA) 100 mg capsule Indications: Lumbar stenosis with neurogenic claudication Take 1 capsule by mouth two times a day for 90 days. Take one capsule three times a day 60 capsule 2 06/05/2024 Active Comment on above: Take 1 capsule by mo [facility] twice daily for 90 days. rosuvastatin calcium 20 mg oral tablet (20 sources) HMG-CoA Reductase Inhibitor Start: 09-15-20 End: 05-01-20 take 1 tablet by mouth once daily at bedtime rosuvastatin (CRESTOR) 20 mg tablet Indications: Hyperlipidemia, mixed Take 1 tablet by mouth daily at bedtime. 90 tablet 1 11/02/2024 05/01/2025 Active Start: 03-09-2022 End: 09-11-2023 take 1 tablet by mouth once daily at bedtime rosuvastatin (CRESTOR) 20 mg tablet Take 1 tablet by mouth daily at bedtime. 90 tablet 1 09/08/2022 03/15/2023 Discontinued Comment on above: Take 1 tablet by cee th daily at bedtime. traMADol hydrochloride 50 mg oral tablet (20 sources) Opioid Agonist Start: 03-04-2020 take 1 tablet by mouth twice daily traMADol (ULTRAM) 50 mg tablet Take 50 mg by mouth twice daily. 03/04/2020 Active Start: 03-04-2020 take 1 tablet by cee th three times daily traMADol (ULTRAM) 50 mg tablet Take 50 mg by mouth three times daily. 0 03/04/2020 Active Comment on above: Take 50 mg by mouth three times daily. Take 50 mg by mouth twice daily. Completed/Discontinued Medications Medication Drug Class(es) Dates Sig (Normalized) Sig (Original) calcium chloride 0.0014 meq/ml / potassium chloride 0.004 meq/ml / sodium chloride 0.103 meq/ml / sodium lactate 0.028 meq/ml injectable solution (1 source) Start: 04-09-2024 End: 04-09-2024 lactated ringers iv infusion colchicine 0.6 mg oral tablet (7 sources) Start: 06-07-2024 End: 12-03-2024 colchicine 0.6 mg tablet Take 2 tabs by mouth, followed by 1 tab one hour later for gout flare. May repeat in 1 week. 6 tablet 06/07/2024 12/03/2024 Discontinued (Course of therapy completed) diphenhydrAMINE (1 source) Histamine-1 Receptor Antagonist Start: 04-09-2024 End: 04-09-2024 diphenhydrAMINE 12.5-50 mg injection (BENADRYL) DULoxetine 60 mg delayed release oral capsule (20 sources) Serotonin and Norepinephrine Reuptake Inhibitor Start: 09-15-2023 End: 09-10-2025 take 1 capsule by mouth once daily DULoxetine (CYMBALTA) 60 mg capsule Indications: Recurrent major depressive disorder, in partial remission Take 1 capsule by mouth once daily. patient assistance 90 capsule 1 09/24/2024 03/13/2025 Discontinued Start: 12-11-2018 End: 03-15-2023 take 1 capsule by mouth once daily DULoxetine (CYMBALTA) 60 mg capsule Indications: Recurrent major depressive disorder, in partial remission (HCC) , Fibromyalgia Take 1 capsule by mouth once daily. patient assistance 90 capsule 1 09/08/2022 03/15/2023 Discontinued Comment on above: Take 1 capsule by mo [facility] once daily. patient assistance 1 ml fentaNYL 0.05 mg/ml injection (1 source) Opioid Agonist Start: 4 End: 4 fentaNYL 50 mcg/mL 25-100 mcg injection (SUBLIMAZE) lisinopril 10 mg oral tablet (20 sources) Angiotensin Converting Enzyme Inhibitor Start: 3 End: 5 take 0.5 tablet by mouth once daily lisinopril (ZESTRIL) 10 mg tablet Indications: Essential hypertension Take 0.5 tablets by mouth once daily. 45 tablet 1 09/24/2024 03/13/2025 Discontinued Start: 09-02-2022 End: 08-25-2023 take 0.5 tablet by mouth once daily lisinopril (ZESTRIL, PRINIVIL) 10 mg tablet Indications: Essential hypertension Take 0.5 tablets by mouth once daily. 45 tablet 3 09/02/2022 08/25/2023 Discontinued Start: 09-03-2021 take 0.5 tablet by m out once daily lisinopril (ZESTRIL, PRINIVIL) 10 mg tablet Indications: Essential hypertension Take 0.5 tablets by mouth once daily. 45 tablet 3 09/03/2021 Active Start: 12-11-2018 take 5 mg by mouth once daily Lisinopril Active 5 MG PO DAILY December 11, 2018 12:00am Comment on above: Take 0.5 tablets by mouth once daily. 5 ml midazolam 1 mg/ml injection (1 source) Benzodiazepine Start: End: midazolam 1-5 mg injection (VERSED) nitrofurantoin, macrocrystals 25 mg / nitrofurantoin, monohydrate 75 mg oral capsule (2 sources) Nitrofuran Antibacterial Start: 025 End: take 1 capsule by mouth twice daily at mealtime nitrofurantoin monohydrate and macrocrystal (MACROBID) 100 mg capsule Take 1 capsule by mouth two times a day with meals for 5 days. 10 capsule 02/14/2025 02/19/2025 omeprazole 40 mg delayed release oral capsule (20 sources) Proton Pump Inhibitor Start: 023 End: take 1 capsule by mouth once daily omeprazole (PRILOSEC) 40 mg capsule Indications: Gastroesophageal reflux disease, unspecified whether esophagitis present Take 1 capsule by mouth once daily. 90 capsule 1 09/24/2024 03/13/2025 Discontinued Start: 09-02-2022 End: 08-25-2023 take 1 capsule by mouth once daily omeprazole (PRILOSEC) 40 mg capsule Indications: Gastroesophageal reflux disease, unspecified whether esophagitis present Take 1 capsule by mouth once daily. 90 capsule 3 09/02/2022 08/25/2023 Discontinued Start: 09-03-2021 take 1 capsule by [facility] once daily omeprazole (PRILOSEC) 40 mg capsule Indications: Gastroesophageal reflux disease, unspecified whether esophagitis present Take 1 capsule by mouth once daily. 90 capsule 3 09/03/2021 Active Start: 12-11-2018 take 10 mg by mouth once daily Omeprazole Active 10 MG PO DAILY December 11, 2018 12:00am Comment on above: Take 1 capsule by mo [facility] once daily. 24 hr oxybutynin chloride 10 mg extended release oral tablet (18 sources) Cholinergic Muscarinic Antagonist Start: End: take 1 tablet by mouth once daily oxybutynin ER (DITROPAN XL) 10 mg 24 hr tablet Indications: Urinary frequency , Stress incontinence TAKE 1 TABLET BY MOUTH EVERY DAY 90 tablet 1 12/12/2023 03/11/2024 Discontinued Start: 10-27-2023 End: 04-24-2024 take 1 tablet by mouth once daily oxybutynin XL (DITROPAN XL) 5 mg 24 hr tablet Indications: Stress incontinence Take 1 tablet by mouth once daily. 30 tablet 5 10/27/2023 11/17/2023 Discontinued Comment on above: Take 1 tablet by cee th once daily. TAKE 1 TABLET BY CEE TH EVERY DAY pentoxifylline 400 mg extended release oral tablet (5 sources) Blood Viscosity [employer] Specialist Start: 05-19-20 End: 02-17-20 take 1 tablet by mouth three times daily at mealtime pentoxifylline ER (TRENTAL) 400 mg CR tablet Take 1 tablet by mouth three times daily with meals. 90 tablet 0 05/19/2022 02/16/2023 Discontinued Comment on above: Take 1 tablet by cee th three times daily with meals. pravastatin sodium 80 mg oral tablet (5 sources) HMG-CoA Reductase Inhibitor Start: 06-02-20 End: 03-09-20 take 1 tablet by mouth once daily pravastatin (PRAVACHOL) 80 mg tablet Indications: mixed hyperlipidemia Take 1 tablet by mouth once daily. 90 tablet 3 06/02/2021 03/09/2022 Discontinued Start: 12-11-2018 take 10 mg by mouth once daily Pravastatin Active 10 MG PO DAILY December 11, 2018 12:00am Comment on above: Take 1 tablet by cee th once daily. Problems Active Problems Problem Classification Problem Date Documented Date Episodic/Chronic Acute and unspecified renal failure (2 sources) Acute renal failure syndrome; Translations: [Acute kidney failure, unspecified] 10-27-2023 Episodic Adjustment disorders (20 sources) Adjustment disorder with depressed mood; Translations: [Adjustment disorder with depressed mood] Onset: 02-03-2009 02-03-2009 Chronic Allergic reactions (4 sources) Inflammatory dermatosis; Translations: [Dermatitis, unspecified] Onset: 01-27-2025 01-27-2025 Episodic Anxiety disorders (20 sources) Obsessive-compulsive disorder; Translations: [Obsessive-compulsive disorder, unspecified] Onset: 12-25-2013 12-25-2013 Chronic Chronic obstructive pulmonary disease and bronchiectasis (20 sources) Chronic obstructive lung disease; Translations: [Chronic obstructive pulmonary disease, unspecified] Onset: 02-16-2023 02-16-2023 Chronic Coronary atherosclerosis and other heart disease (6 sources) Calcification of coronary artery; Translations: [Atherosclerotic heart disease of [place] coronary artery without angina pectoris] Onset: 03-11-2024 10-19-2023 Chronic Deficiency and other anemia (20 sources) Iron deficiency anemia; Translations: [Iron deficiency anemia, unspecified] 12-16-2020 Episodic Diseases of white blood cells (2 sources) Leukocytosis; Translations: [Elevated white blood cell count, unspecified] Chronic Disorders of lipid metabolism (20 sources) Mixed hyperlipidemia; Translations: [Mixed hyperlipidemia] Onset: 06-09-2005 Resolved: 08-17-2018 08-17-2018 Chronic Esophageal disorders (20 sources) Gastroesophageal reflux disease; Translations: [Gastro-esophageal reflux disease without esophagitis] Onset: 06-09-2005 06-09-2005 Chronic Essential hypertension (20 sources) Hypertensive disorder; Translations: [Essential (primary) hypertension] Onset: 06-23-2011 06-23-2011 Chronic Fluid and electrolyte disorders (1 source) Hyperkalemia; Translations: [Hyperkalemia] Episodic Genitourinary symptoms and ill-defined conditions (7 sources) Genuine stress incontinence; Translations: [Stress incontinence (female) (male)] Onset: 02-12-2025 10-27-2023 Chronic Genitourinary symptoms and ill-defined conditions (5 sources) Increased frequency of urination; Translations: [Frequency of micturition] Onset: 02-12-2025 11-17-2023 Episodic Miscellaneous mental health disorders (20 sources) Bulimia nervosa; Translations: [Bulimia nervosa] Onset: 02-09-2006 Resolved: 08-17-2018 02-09-2006 Chronic Mood disorders (20 sources) Depressive disorder; Translations: [Depression] 02-18-2019 Chronic Nonmalignant breast conditions (1 source) Mammographic calcification of left breast; Translations: [Mammographic calcification found on diagnostic imaging of breast] Episodic Nonspecific chest pain (3 sources) Chest pain; Translations: [Chest pain, unspecified] Episodic Nutritional deficiencies (2 sources) Vitamin D deficiency; Translations: [Vitamin D deficiency, unspecified] Onset: 12-03-2024 12-03-2024 Chronic Osteoporosis (2 sources) Senile osteoporosis; Translations: [Age-related osteoporosis without current pathological fracture] Onset: 02-12-2025 02-12-2025 Chronic Other circulatory disease (1 source) Abnormal foot pulse; Translations: [Other specified symptoms and signs involving the circulatory and respiratory systems] Episodic Other connective tissue disease (3 sources) Pain in right thumb; Translations: [Pain in right finger(s)] 06-05-2024 Episodic Other connective tissue disease (1 source) Arthrodesis status; Translations: [Arthrodesis status] Onset: 10-07-2024 Episodic Other lower respiratory disease (1 source) Dyspnea on exertion; Translations: [Other forms of dyspnea] 03-11-2024 Episodic Other lower respiratory disease (1 source) Other forms of dyspnea; Translations: [GILL (dyspnea on exertion)] Onset: 03-11-2024 Episodic Other lower respiratory disease (2 sources) Chronic cough; Translations: [Chronic cough] Onset: 02-12-2025 02-12-2025 Episodic Other nutritional; endocrine; and metabolic disorders (2 sources) Hypervitaminosis D; Translations: [Hypervitaminosis D] 12-05-2024 Chronic Other nutritional; endocrine; and metabolic disorders (1 source) Hypervitaminosis D; Translations: [High vitamin D level] Onset: 12-06-2024 Chronic Other screening for suspected conditions (not mental disorders or infectious disease) (20 sources) Patient encounter status; Translations: [Encounter for screening mammogram for malignant neoplasm of breast] Onset: 03-11-2024 Episodic Other upper respiratory infections (2 sources) Upper respiratory infection; Translations: [Acute upper respiratory infection, unspecified] 08-07-2023 Episodic Peripheral and visceral atherosclerosis (1 source) Peripheral vascular disease, unspecified; Translations: [Peripheral vascular disease, unspecified] Chronic Residual codes; unclassified (1 source) Tobacco use and exposure - finding; Translations: [Tobacco use] Episodic Residual codes; unclassified (3 sources) Tobacco user; Translations: [Tobacco use] 10-19-2023 Episodic Residual codes; unclassified (2 sources) Menopause present; Translations: [Asymptomatic menopausal state] 12-03-2024 Episodic Residual codes; unclassified (1 source) Asymptomatic menopausal state; Translations: [Asymptomatic menopause] Onset: 01-09-2025 Episodic Substance-related disorders (20 sources) Tobacco user; Translations: [Nicotine dependence, unspecified, uncomplicated] Onset: 02-09-2006 02-21-2017 Chronic Unclassified (1 source) Low back pain, unspecified; Translations: [Low back pain, unspecified] Onset: 10-07-2024 Past or Other Problems Problem Classification Problem Date Documented Date Episodic/Chronic Abdominal hernia (20 sources) Diaphragmatic hernia; Translations: [Diaphragmatic hernia without obstruction or gangrene] Onset: 07-08-2009 07-08-2009 Episodic Abdominal pain (20 sources) Right flank pain; Translations: [Unspecified abdominal pain] Onset: 01-10-2012 01-10-2012 Episodic Alcohol-related disorders (20 sources) Alcohol dependence; Translations: [Alcohol dependence, uncomplicated] Onset: 08-17-2016 Resolved: 03-15-2023 09-13-2021 Chronic Calculus of urinary tract (20 sources) Kidney stone; Translations: [Calculus of kidney] Onset: 01-10-2012 Resolved: 08-17-2018 12-25-2013 Episodic Diabetes mellitus without complication (7 sources) Prediabetes; Translations: [Prediabetes] Onset: 06-05-2024 Episodic Gastritis and duodenitis (20 sources) Acute gastritis; Translations: [Acute gastritis without bleeding] Onset: 07-08-2009 Resolved: 08-17-2018 08-17-2018 Episodic Immunizations and screening for infectious disease (3 sources) Vaccination needed; Translations: [Encounter for immunization] Onset: 12-03-2024 Episodic Malaise and fatigue (2 sources) Fatigue; Translations: [Other fatigue] Onset: 12-03-2024 12-03-2024 Episodic Other acquired deformities (20 sources) Lumbar spondylolisthesis; Translations: [Spondylolisthesis, lumbar region] Onset: 01-10-2018 02-23-2018 Episodic Other and unspecified benign neoplasm (20 sources) Benign adenomatous neoplasm; Translations: [Benign neoplasm, unspecified site] Onset: 12-25-2013 12-25-2013 Episodic Other and unspecified benign neoplasm (1 source) Benign neoplasm, unspecified site; Translations: [Tubulovillous adenoma] Onset: 12-25-2013 Episodic Other connective tissue disease (20 sources) Fibromyalgia; Translations: [Fibromyalgia] Onset: 05-14-2016 09-14-2021 Episodic Other connective tissue disease (1 source) Pain in right finger(s); Translations: [Pain of right thumb] Onset: 06-05-2024 Episodic Other lower respiratory disease (20 sources) Breathing painful; Translations: [Chest pain on breathing] Onset: 02-09-2006 Resolved: 08-17-2018 08-17-2018 Episodic Other nervous system disorders (20 sources) Acute postoperative pain; Translations: [Other acute postprocedural pain] Onset: 02-23-2018 02-23-2018 Episodic Spondylosis; intervertebral disc disorders; other back problems (20 sources) Spinal stenosis of lumbar region; Translations: [Spinal stenosis, lumbar region with neurogenic claudication] Onset: 01-10-2018 02-23-2018 Episodic Unclassified (20 sources) PMH - PAST MEDICAL HISTORY OF Resolved: 08-17-2018 08-17-2018 Unclassified (2 sources) Patient encounter status 12-03-2024 Results Test Name Value Interpretation Reference Range Facility [facility] -------- MOLLY HIDALGO ([id number]) 1960 F Date Time Provider Department 03/07/25 TATYANA PEREZ [facility] During your visit today, we recorded the following information about you: Tatyana Perez APRN.CNP 03/07/2025 5:20 PM Signed Phone call to patient to notify she is scheduled incorrectly on Monday03/10/2025. She will need to reschedule to have CT first. Left message notifying patient. RACHAEL Baum Melinda, APRN.CNP 03/10/2025 12:47 PM Signed Pt is rescheduled 04/17/2025 Allergies As of Date: 03/07/2025 Noted Allergy Reaction IODINE (CONTRAST DYE) 01/17/2012 7 - Swelling Comments: PT HAD A REACTION OF SWELLING IN THROAT,TROUBLE BREATHING 24 HRS AFTER INJECTION OF IV DYE FOR A CT UROGRAM. KK LIPITOR (ATORVASTATIN CALCIUM) 14 - Other: See Comments Comments: Skin turned yellow Date Reviewed: 02/12/2025 Reviewed by: Trista Espinosa LPN - Fully Assessed Reason for Visit: Appointment [186] Prescriptions as of 03/10/2025 - metFORMIN (GLUCOPHAGE) 500 mg tablet Take 1 tablet by mouth two times a day with meals. . - budesonide-formoterol (SYMBICORT) 80-4.5 mcg/actuation inhaler Inhale 2 puffs as instructed two times a day. - levothyroxine (SYNTHROID) 25 mcg tablet Take 1 tablet by mouth once daily. - rosuvastatin (CRESTOR) 20 mg tablet Take 1 tablet by mouth daily at bedtime. - lisinopril (ZESTRIL) 10 mg tablet Take 0.5 tablets by mouth once daily. - omeprazole (PRILOSEC) 40 mg capsule Take 1 capsule by mouth once daily. - DULoxetine (CYMBALTA) 60 mg capsule Take 1 capsule by mouth once daily. patient assistance - buPROPion XL (WELLBUTRIN XL) 300 mg 24 hr tablet Take 1 tablet by mouth once daily. - pregabalin (LYRICA) 100 mg capsule Take 1 capsule by mouth two times a day for 90 days. Take one capsule three times a day - albuterol HFA (VENTOLIN HFA) 90 mcg/actuation inhaler Inhale 2 Puffs as instructed every 4 hours as needed for wheezing/shortness of breath. - nitroglycerin sublingual (NITROSTAT) 0.4 mg SL tablet Dissolve 1 tablet under the tongue every 5 minutes as needed for chest pain. - traMADol (ULTRAM) 50 mg tablet Take 50 mg by mouth twice daily. - Cholecalciferol, Vitamin D3, 2,000 unit cap Take 1 tablet by mouth once daily. 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]02/03/2009 Diaphragmatic Hernia without Mention of Obstruc*07/08/2009 Bulimia (HCC) [F50.20] 07/08/2009 08/17/2018 Acute gastritis without mention of hemorrhage [*07/08/2009 08/17/2018 Hypertension [I10] 06/23/2011 Kidney stones [N20.0] 01/10/2012 08/17/2018 Right flank pain [R10.9] 01/10/2012 Hypertriglyceridemia [E78.1] 08/31/2012 08/17/2018 OCD (obsessive compulsive disorder) [F42.9] 12/25/2013 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] 12/25/2013 Nephrolithiasis [N20.0] 12/25/2013 Fibromyalgia [M79.7] 05/14/2016 Alcohol dependence (HCC) [F10.20] 08/17/2016 03/15/2023 Spinal stenosis, lumbar region with neurogenic *01/10/2018 Spondylolisthesis of lumbar region [M43.16] 01/10/2018 Lumbar stenosis with neurogenic claudication [M*02/22/2018 Acute postoperative pain [G89.18] 02/23/2018 Hyperlipidemia, mixed [E78.2] 08/17/2018 Depression [F32.A] History of alcohol dependence (HCC) [F10.21] 03/15/2023 Iron deficiency anemia [D50.9] COPD (chronic obstructive pulmonary disease) (H*02/16/2023 Encounter Status:Closed by TATYANA PEREZ on 03/10/25 Normal [facility] DBT Breast - left diagnostic for implanton 02-19-2025 IMPRESSION: The focal asymmetry in the left breast at 12 o'clock, middle depth is probably benign. It is favored to represent changes from prior biopsy. Follow-up with diagnostic mammogram is recommended in 6 months. BI-RADS Category 3: Probably Benign RISK: Based on the Tyrer-Cuzick (TC) risk assessment model, this patient has a 10.1% lifetime risk of developing breast cancer, meaning they are at average risk for developing breast cancer. However, this is only an estimate based on available history provided on the patient's questionnaire. We encourage all patients to talk with their providers about these results, further recommendations for managing breast health, and appropriate supplemental screening options if the patient has dense breast tissue. Interpreting Radiologist: Radha Mitchell M.D. Electronically signed on: 02/19/2025 Articulation Officer: REEMA Newbyrilatrice Date/Time: Feb 19 2025 12:55P Dictated by: RADHA MITCHELL MD This examination was interpreted and the report reviewed and electronically signed by: RADHA MITCHELL MD on Feb 19 2025 2:07PM [facility] DIVISION OF RADIOLOGY * * *Final Report* * * DATE OF EXAM: Feb 19 2025 1:23PM W 0628 - [facility] DI[facility] W ROXANNE LT / PROCEDURE REASON: Abnormal mammogram * * * * Physician Interpretation * * * * RESULT: [place] [address] #[id number] - [facility] DIAG W ROXANNE LT #[id number] - [facility] US BREAST LTD LT HISTORY: 64 year-old patient seen for diagnostic evaluation of the finding(s) described on prior mammogram in the left breast. Patient states no personal history of breast cancer. COMPARISON STUDIES: The present examination has been compared to prior imaging studies dated 11/15/2011 (mammogram), 03/04/2015 (mammogram), 04/05/2016 (mammogram), 10/03/2018 (mammogram), 03/23/2020 (mammogram), 04/21/2020 (mammogram), 03/14/2022 (mammogram), 05/03/2022 (mammogram), 06/13/2023 (mammogram) and 01/09/2025 (mammogram). MAMMOGRAM TECHNIQUE: The study was acquired using full field digital technology and interpreted from soft copy. Digital Breast Tomosynthesis (DBT) images were obtained and used to assist in the interpretation of this examination. MAMMOGRAM FINDINGS: The breast is heterogeneously dense, which may obscure small masses. There is a focal asymmetry with possible distortion in the left breast at 12 o'clock, middle depth. There is a biopsy marker clip adjacent to the asymmetry. The asymmetry is visible on CC mammograms dating back to 2011 and does not appear changed in size. The area is obscured on MLO views on mammograms prior to 2022 due to overlying dense breast tissue and lack of roxanne imaging. It is stable since 06/13/23 on roxanne MLO views. This asymmetry is favored to represent scar from prior biopsy. ULTRASOUND TECHNIQUE: Targeted ultrasound of the indicated area was performed. Sarmiento scale images were saved. ULTRASOUND FINDINGS: There are no suspicious sonographic findings to correspond with the area of the focal asymmetry. DIVISION OF RADIOLOGY Provider, [facility] - 02/19/2025 * * *Final Report* * * DATE OF EXAM: Feb 19 2025 1:23PM WRW 0628 - [facility] DIAG W ROXANNE LT / PROCEDURE REASON: Abnormal mammogram * * * * Physician Interpretation * * * * RESULT: [address] [address] [place] [address] #[id number] - [facility] DIAG W ROXANNE LT #[id number] - [facility] US BREAST LTD LT HISTORY: 64 year-old patient seen for diagnostic evaluation of the finding(s) described on prior mammogram in the left breast. Patient states no personal history of breast cancer. COMPARISON STUDIES: The present examination has been compared to prior imaging studies dated 11/15/2011 (mammogram), 03/04/2015 (mammogram), 04/05/2016 (mammogram), 10/03/2018 (mammogram), 03/23/2020 (mammogram), 04/21/2020 (mammogram), 03/14/2022 (mammogram), 05/03/2022 (mammogram), 06/13/2023 (mammogram) and 01/09/2025 (mammogram). MAMMOGRAM TECHNIQUE: The study was acquired using full field digital technology and interpreted from soft copy. Digital Breast Tomosynthesis (DBT) images were obtained and used to assist in the interpretation of this examination. MAMMOGRAM FINDINGS: The breast is heterogeneously dense, which may obscure small masses. There is a focal asymmetry with possible distortion in the left breast at 12 o'clock, middle depth. There is a biopsy marker clip adjacent to the asymmetry. The asymmetry is visible on CC mammograms dating back to 2011 and does not appear changed in size. The area is obscured on MLO views on mammograms prior to 2022 due to overlying dense breast tissue and lack of roxanne imaging. It is stable since 06/13/23 on roxanne MLO views. This asymmetry is favored to represent scar from prior biopsy. ULTRASOUND TECHNIQUE: Targeted ultrasound of the indicated area was performed. Sarmiento scale images were saved. ULTRASOUND FINDINGS: There are no suspicious sonographic findings to correspond with the area of the focal asymmetry. IMPRESSION IMPRESSION: The focal asymmetry in the left breast at 12 o'clock, middle depth is probably benign. It is favored to represent changes from prior biopsy. Follow-up with diagnostic mammogram is recommended in 6 months. BI-RADS Category 3: Probably Benign RISK: Based on the Tyrer-Cuzick (TC) risk assessment model, this patient has a 10.1% lifetime risk of developing breast cancer, meaning they are at average risk for developing breast cancer. However, this is only an estimate based on available history provided on the patient's questionnaire. We encourage all patients to talk with their providers about these results, further recommendations for managing breast health, and appropriate supplemental screening options if the patient has dense breast tissue. Interpreting Radiologist: Radha Mitchell M.D. Electronically signed on: 02/19/2025 Articulation Officer: REEMA Transcribe Date/Time: Feb 19 2025 12:55P Dictated by: RAHDA MITCHELL MD This examination was interpreted and the report reviewed and electronically signed by: RADHA MITCHELL MD on Feb 19 2025 2:07PM EST [facility] DBT Breast - left diagnostic for implantOrdered By: [facility] Provider on 02-19-2025 [facility] EDDY DIAG W ROXANNE LTon 025 [facility] DIAG W ROXANNE LT * * *Final Report* * * DATE OF EXAM: Feb 19 2025 1:23PM [facility] 0628 - [facility] DIAG W ROXANNE LT / PROCEDURE REASON: Abnormal mammogram * * * * Physician Interpretation * * * * RESULT: [facility] [address] [id number] - [facility] DIAG W ROXANNE LT #[id number] - [facility] US BREAST LTD LT HISTORY: 64 year-old patient seen for diagnostic evaluation of the finding(s) described on prior mammogram in the left breast. Patient states no personal history of breast cancer. COMPARISON STUDIES: The present examination has been compared to prior imaging studies dated 11/15/2011 (mammogram), 03/04/2015 (mammogram), 04/05/2016 (mammogram), 10/03/2018 (mammogram), 03/23/2020 (mammogram), 04/21/2020 (mammogram), 03/14/2022 (mammogram), 05/03/2022 (mammogram), 06/13/2023 (mammogram) and 01/09/2025 (mammogram). MAMMOGRAM TECHNIQUE: The study was acquired using full field digital technology and interpreted from soft copy. Digital Breast Tomosynthesis (DBT) images were obtained and used to assist in the interpretation of this examination. MAMMOGRAM FINDINGS: The breast is heterogeneously dense, which may obscure small masses. There is a focal asymmetry with possible distortion in the left breast at 12 o'clock, middle depth. There is a biopsy marker clip adjacent to the asymmetry. The asymmetry is visible on CC mammograms dating back to 2011 and does not appear changed in size. The area is obscured on MLO views on mammograms prior to 2022 due to overlying dense breast tissue and lack of roxanne imaging. It is stable since 06/13/23 on roxanne MLO views. This asymmetry is favored to represent scar from prior biopsy. ULTRASOUND TECHNIQUE: Targeted ultrasound of the indicated area was performed. Sarmiento scale images were saved. ULTRASOUND FINDINGS: There are no suspicious sonographic findings to correspond with the area of the focal asymmetry. IMPRESSION: The focal asymmetry in the left breast at 12 o'clock, middle depth is probably benign. It is favored to represent changes from prior biopsy. Follow-up with diagnostic mammogram is recommended in 6 months. BI-RADS Category 3: Probably Benign RISK: Based on the Tyrer-Cuzick (TC) risk assessment model, this patient has a 10.1% lifetime risk of developing breast cancer, meaning they are at average risk for developing breast cancer. However, this is only an estimate based on available history provided on the patient's questionnaire. We encourage all patients to talk with their providers about these results, further recommendations for managing breast health, and appropriate supplemental screening options if the patient has dense breast tissue. Interpreting Radiologist: Radha Mitchell M.D. Electronically signed on: 02/19/2025 Articulation Officer: REEMA Transcribe Date/Time: Feb 19 2025 12:55P Dictated by: RADHA MITCHELL MD This examination was interpreted and the report reviewed and electronically signed by: RADHA MITCHELL MD on Feb 19 2025 2:07PM EST [id number] Normal [facility] US BREAST LTD LTon 02-19 [facility] US BREAST LTD LT * * *Final Report* * * DATE OF EXAM: Feb 19 2025 1:45PM WRU 0593 - [facility] US BREAST LTD LT / PROCEDURE REASON: Abnormal mammogram * * * * Physician Interpretation * * * * [address] [address] [place] [address] #[id number] - [facility] DIAG W ROXANNE LT #[id number] - [facility] US BREAST LTD LT HISTORY: 64 year-old patient seen for diagnostic evaluation of the finding(s) described on prior mammogram in the left breast. Patient states no personal history of breast cancer. COMPARISON STUDIES: The present examination has been compared to prior imaging studies dated 11/15/2011 (mammogram), 03/04/2015 (mammogram), 04/05/2016 (mammogram), 10/03/2018 (mammogram), 03/23/2020 (mammogram), 04/21/2020 (mammogram), 03/14/2022 (mammogram), 05/03/2022 (mammogram), 06/13/2023 (mammogram) and 01/09/2025 (mammogram). MAMMOGRAM TECHNIQUE: The study was acquired using full field digital technology and interpreted from soft copy. Digital Breast Tomosynthesis (DBT) images were obtained and used to assist in the interpretation of this examination. MAMMOGRAM FINDINGS: The breast is heterogeneously dense, which may obscure small masses. There is a focal asymmetry with possible distortion in the left breast at 12 o'clock, middle depth. There is a biopsy marker clip adjacent to the asymmetry. The asymmetry is visible on CC mammograms dating back to 2011 and does not appear changed in size. The area is obscured on MLO views on mammograms prior to 2022 due to overlying dense breast tissue and lack of roxanne imaging. It is stable since 06/13/23 on roxanne MLO views. This asymmetry is favored to represent scar from prior biopsy. ULTRASOUND TECHNIQUE: Targeted ultrasound of the indicated area was performed. Sarmiento scale images were saved. ULTRASOUND FINDINGS: There are no suspicious sonographic findings to correspond with the area of the focal asymmetry. IMPRESSION: The focal asymmetry in the left breast at 12 o'clock, middle depth is probably benign. It is favored to represent changes from prior biopsy. Follow-up with diagnostic mammogram is recommended in 6 months. BI-RADS Category 3: Probably Benign RISK: Based on the Tyrer-Cuzick (TC) risk assessment model, this patient has a 10.1% lifetime risk of developing breast cancer, meaning they are at average risk for developing breast cancer. However, this is only an estimate based on available history provided on the patient's questionnaire. We encourage all patients to talk with their providers about these results, further recommendations for managing breast health, and appropriate supplemental screening options if the patient has dense breast tissue. Interpreting Radiologist: Radha Mitchell M.D. Electronically signed on: 02/19/2025 Articulation Officer: REEMA Newbyrilatrice Date/Time: Feb 19 2025 1:37P Dictated by : RADHA MITCHELL MD This examination was interpreted and the report reviewed and electronically signed by: RADHA MITCHELL MD on Feb 19 2025 2:07PM EST [id number] Normal [facility] No Panel Informationon 02-19 Radiology Study observation (narrative) [facility] US Breast - left limitedon 0 02-19-2025 IMPRESSION: The focal asymmetry in the left breast at 12 o'clock, middle depth is probably benign. It is favored to represent changes from prior biopsy. Follow-up with diagnostic mammogram is recommended in 6 months. BI-RADS Category 3: Probably Benign RISK: Based on the Tyrer-Cuzick (TC) risk assessment model, this patient has a 10.1% lifetime risk of developing breast cancer, meaning they are at average risk for developing breast cancer. However, this is only an estimate based on available history provided on the patient's questionnaire. We encourage all patients to talk with their providers about these results, further recommendations for managing breast health, and appropriate supplemental screening options if the patient has dense breast tissue. Interpreting Radiologist: Radha Mitchell M.D. Electronically signed on: 02/19/2025 Articulation Officer: MAGVIW Transcribe Date/Time: Feb 19 2025 1:37P Dictated by : RADHA MITCHELL MD This examination was interpreted and the report reviewed and electronically signed by: RADHA MITCHELL MD on Feb 19 2025 2:07PM [facility] DIVISION OF RADIOLOGY * * *Final Report* * * DATE OF EXAM: Feb 19 2025 1:45PM U 0593 - [facility] US BREAST LTD LT / PROCEDURE REASON: Abnormal mammogram * * * * Physician Interpretation * * * * [place] [address] #[id number] - [facility] DIAG W ROXANNE LT #[id number] - [facility] [employer] BREAST LTD LT HISTORY: 64 year-old patient seen for diagnostic evaluation of the finding(s) described on prior mammogram in the left breast. Patient states no personal history of breast cancer. COMPARISON STUDIES: The present examination has been compared to prior imaging studies dated 11/15/2011 (mammogram), 03/04/2015 (mammogram), 04/05/2016 (mammogram), 10/03/2018 (mammogram), 03/23/2020 (mammogram), 04/21/2020 (mammogram), 03/14/2022 (mammogram), 05/03/2022 (mammogram), 06/13/2023 (mammogram) and 01/09/2025 (mammogram). MAMMOGRAM TECHNIQUE: The study was acquired using full field digital technology and interpreted from soft copy. Digital Breast Tomosynthesis (DBT) images were obtained and used to assist in the interpretation of this examination. MAMMOGRAM FINDINGS: The breast is heterogeneously dense, which may obscure small masses. There is a focal asymmetry with possible distortion in the left breast at 12 o'clock, middle depth. There is a biopsy marker clip adjacent to the asymmetry. The asymmetry is visible on CC mammograms dating back to 2011 and does not appear changed in size. The area is obscured on MLO views on mammograms prior to 2022 due to overlying dense breast tissue and lack of roxanne imaging. It is stable since 06/13/23 on roxanne MLO views. This asymmetry is favored to represent scar from prior biopsy. ULTRASOUND TECHNIQUE: Targeted ultrasound of the indicated area was performed. Sarmiento scale images were saved. ULTRASOUND FINDINGS: There are no suspicious sonographic findings to correspond with the area of the focal asymmetry. DIVISION OF RADIOLOGY Provider, Kinjal Morrell - 02/19/2025 * * *Final Report* * * DATE OF EXAM: Feb 19 2025 1:45PM WRU 0593 - [facility] US BREAST LTD LT / PROCEDURE REASON: Abnormal mammogram * * * * Physician Interpretation * * * * [place] [address] #[id number] - [facility] DIAG W ROXANNE LT #[id number] - [facility] [employer] BREAST LTD LT HISTORY: 64 year-old patient seen for diagnostic evaluation of the finding(s) described on prior mammogram in the left breast. Patient states no personal history of breast cancer. COMPARISON STUDIES: The present examination has been compared to prior imaging studies dated 11/15/2011 (mammogram), 03/04/2015 (mammogram), 04/05/2016 (mammogram), 10/03/2018 (mammogram), 03/23/2020 (mammogram), 04/21/2020 (mammogram), 03/14/2022 (mammogram), 05/03/2022 (mammogram), 06/13/2023 (mammogram) and 01/09/2025 (mammogram). MAMMOGRAM TECHNIQUE: The study was acquired using full field digital technology and interpreted from soft copy. Digital Breast Tomosynthesis (DBT) images were obtained and used to assist in the interpretation of this examination. MAMMOGRAM FINDINGS: The breast is heterogeneously dense, which may obscure small masses. There is a focal asymmetry with possible distortion in the left breast at 12 o'clock, middle depth. There is a biopsy marker clip adjacent to the asymmetry. The asymmetry is visible on CC mammograms dating back to 2011 and does not appear changed in size. The area is obscured on MLO views on mammograms prior to 2022 due to overlying dense breast tissue and lack of roxanne imaging. It is stable since 06/13/23 on roxanne MLO views. This asymmetry is favored to represent scar from prior biopsy. ULTRASOUND TECHNIQUE: Targeted ultrasound of the indicated area was performed. Sarmiento scale images were saved. ULTRASOUND FINDINGS: There are no suspicious sonographic findings to correspond with the area of the focal asymmetry. IMPRESSION IMPRESSION: The focal asymmetry in the left breast at 12 o'clock, middle depth is probably benign. It is favored to represent changes from prior biopsy. Follow-up with diagnostic mammogram is recommended in 6 months. BI-RADS Category 3: Probably Benign RISK: Based on the Tyrer-Cuzick (TC) risk assessment model, this patient has a 10.1% lifetime risk of developing breast cancer, meaning they are at average risk for developing breast cancer. However, this is only an estimate based on available history provided on the patient's questionnaire. We encourage all patients to talk with their providers about these results, further recommendations for managing breast health, and appropriate supplemental screening options if the patient has dense breast tissue. Interpreting Radiologist: Radha Mitchell M.D. Electronically signed on: 02/19/2025 Articulation Officer: REEMA Transcribe Date/Time: Feb 19 2025 1:37P Dictated by : RADHA MITCHELL MD This examination was interpreted and the report reviewed and electronically signed by: RADHA MITCHELL MD on Feb 19 2025 2:07PM [facility] US Breast - left limitedOrde red By: Cc Provider on 02-19-2025 [facility] Bacteria Ur Culton Bacteria identified Cx Nom (U) ORGANISM ID: 1 >=100,000 CFU/ml Escherichia coli ORGANISM ID: 1 (ESCHERICHIA COLI) ANTIBIOTIC INTERPRETATION [facility] STATUS REFERENCE RANGE Ampicillin S <=2 F Susceptible <=8 , Intermediate >8 , Resistant >16 Cefazolin S <=4 F Susceptible 0-16 , Intermediate <0 or >16 , Resistant >16 For uncomplicated urinary tract infections, cefazolin results can be used to predict susceptibility or resistance to cephalexin. Ceftriaxone S <=1 F Susceptible <=1 , Intermediate >1 , Resistant >=4 Cefepime S <=1 F Susceptible <=2 , Susceptible-Dose Dependent >2 , Resistant >=16 Ertapenem S <=0.5 F Susceptible <=0.5 , Intermediate >.5 , Resistant >1 Meropenem S <=0.25 F Susceptible <=1 , Intermediate >1 , Resistant >2 Ampicillin/Sulbact S <=2 F Susceptible <=8 , Intermediate >8 , Resistant >16 Piperacillin/Tazobac S <=4 F Susceptible <16 , Susceptible-Dose Dependent >=16 , Resistant >=32 Gentamicin S <=1 F Susceptible <=2 , Intermediate >2 , Resistant >=8 Tobramycin S <=1 F Susceptible <4 , Intermediate >=4 , Resistant >=8 Trimeth sulfameth S <=20 F Susceptible <=40 , Resistant >40 Ciprofloxacin S <=0.25 F Susceptible <0.5 , Intermediate >=.5 , Resistant >=1 Nitrofurantoin S <=16 F Susceptible <=32 , Intermediate >32 , Resistant >64 Abnormal [facility] Comment on above: Performed By: #### 6 30-4 ####[facility] [id number] [address] OF [facility] CNOVon 02-12-2025 CNOV Office Visit (FAMPWS ) -------- MOLLY HIDALGO ([id number]) 1960 F Date Time Provider Department 02/12/25 2:40 PM JESSICA PALENCIA During your visit today, we recorded the following information about you: Temperature Pulse Respiration Blood pressure 98.6 degrees 93/minute 18/minute 106/74 Weight 60.7 kg Jessica Palencia APRN.CNP 02/12/2025 3:14 PM Signed 02/12/2025 Patient presents with: Cough: Has been coughing since last fall, is having coughing fits and seems to be getting worse UTI: Urgency, frequency, with small amount. Blood noticed x1. Recording using [employer] software for draft documentation of the visit was discussed with the patient/authorized admissions representative; all questions welcomed and answered. Patient/authorized admissions representative agreed to proceed SUBJECTIVE: This is a 64 year old that is here today for Above Complaints. Chronic Cough: - Persistent cough since last fall, occurring daily. - Cough is productive with large amounts of clear mucus. - Aggravated by exposure to guinea pig and its bedding. - Associated with fatigue. - Denies dyspnea above baseline. - Using albuterol inhaler with occasional relief; adherent to Symbicort daily. - Smoker for over 50 years; denies desire to quit. Urinary Incontinence: - Severe stress incontinence, worsened over time. - Requires use of pads. - Denies urge incontinence except during current UTI symptoms. - Has been performing Kegel exercises without improvement. - Hysterectomy in the past; denies uterine prolapse. UTI Symptoms: - Urgency and frequency; denies dysuria. - Observed hematuria for one day. - Intermittent sharp pain in lower abdomen, not constant. - Denies nausea, emesis, fevers, or chills. - Not using OTC medications for symptom relief. Osteoporosis: - Taking calcium and vitamin D3 supplements. - History of calcium kidney stones; concerned about calcium intake. - Denies current weight-bearing exercises due to back issues. Latest Ref Rng 02/12/2025 GLUCOSE UA (POCT) Negative mg/dL Negative BILIRUBIN UA (POCT) Negative Negative KETONE UA (POCT) Negative mg/dL Trace SPECIFIC GRAVITY UA (POCT) 1.005 - 1.030 1.020 HEMOGLOBIN/BLOOD UA (POCT) Negative Small ! PH UA (POCT) 4.5 - 8.0 5.5 PROTEIN UA (POCT) Negative mg/dL 100 ! UROBILINOGEN UA (POCT) Normal E.U./dL 0.2 NITRITE UA (POCT) Negative Negative LEUKOCYTES UA (POCT) Negative Small ! COLOR UA (POCT) Yellow CLARITY UA (POCT) Cloudy Legend: ! Abnormal PAST MEDICAL HISTORY Diagnosis Date Abnormal glandular Papanicolaou smear of cervix Abn. Pap smear (cervix) Bulimia Chronic lower back pain Dr. Hall Colon polyps hyperplastic polyp 2014 COPD (chronic obstructive pulmonary disease) ([facility]) 02/16/2023 Depression Diaphragmatic hernia without mention of obstruction or gangrene Esophageal reflux 06/09/2005 Family history of coronary artery disease Fatty liver 10/19/2023 Fibromyalgia History of alcohol dependence ([facility]) History of drug abuse ([facility]) marijuana, cocaine, acid, methamphetamines, speed. Sober since age 20s Hypertension Iron deficiency anemia Lumbar stenosis with neurogenic claudication Mononucleosis Nephrolithiasis PAD (peripheral artery disease) Prediabetes Pure hypercholesterolemia 06/09/2005 Tobacco use ALLERGIES Iodine [Contrast Dye] and Lipitor [Atorvastatin Calcium] MEDICATIONS Current Outpatient Medications Medication Sig metFORMIN (GLUCOPHAGE) 500 mg tablet Take 1 tablet by mouth two times a day with meals. . budesonide-formoterol (SYMBICORT) 80-4.5 mcg/actuation inhaler Inhale 2 puffs as instructed two times a day. levothyroxine (SYNTHROID) 25 mcg tablet Take 1 tablet by mouth once daily. rosuvastatin (CRESTOR) 20 mg tablet Take 1 tablet by mouth daily at bedtime. lisinopril (ZESTRIL) 10 mg tablet Take 0.5 tablets by mouth once daily. omeprazole (PRILOSEC) 40 mg capsule Take 1 capsule by mouth once daily. DULoxetine (CYMBALTA) 60 mg capsule Take 1 capsule by mouth once daily. patient assistance buPROPion XL (WELLBUTRIN XL) 300 mg 24 hr tablet Take 1 tablet by mouth once daily. pregabalin (LYRICA) 100 mg capsule Take 1 capsule by mouth two times a day for 90 days. Take one capsule three times a day albuterol HFA (VENTOLIN HFA) 90 mcg/actuation inhaler Inhale 2 Puffs as instructed every 4 hours as needed for wheezing/shortness of breath. nitroglycerin sublingual (NITROSTAT) 0.4 mg SL tablet Dissolve 1 tablet under the tongue every 5 minutes as needed for chest pain. traMADol (ULTRAM) 50 mg tablet Take 50 mg by mouth twice daily. Cholecalciferol, Vitamin D3, 2,000 unit cap Take 1 tablet by mouth once daily. No current facility-administered medications for this visit. Medications and allergies reviewed by this provider. SOCIAL HISTORY Social History Tobacco Use Smoking status: Ev (more content not included)... Normal [facility] UA DIP, URINE (POC)on 2024 BILIRUBIN UA (POCT) Negative Negative [facility] CLARITY UA (POCT) Cloudy [facility] COLOR UA (POCT) Yellow [facility] GLUCOSE UA (POCT) Negative Negative mg/dL [facility] Hemoglobin Ql (U) Small Abnormal Negative [facility] Interpretation and review of laboratory results Abnormal [facility] KETONE UA (POCT) Trace Negative mg/dL [facility] LEUKOCYTES UA (POCT) Small Abnormal Negative [facility] NITRITE UA (POCT) Negative Negative [facility] PH UA (POCT) 5.5 4.5 - 8.0 [facility] Protein Ql (U) 100 mg/dL Abnormal Negative [facility] SPECIFIC GRAVITY UA (POCT) 1.02 1.005 - 1.030 [facility] UROBILINOGEN UA (POCT) 0.2 Haylie l E.U./dL [facility] Location:[facility], [address] [place] [address], [place], [place], [id number] [place] [address] [facility] XR CHEST 2V FRONTAL/LATon XR CHEST 2V FRONTAL/LAT * * *Final Report* * * DATE OF EXAM: Feb 12 2025 3:26PM WOX [id number] - XR CHEST 2V FRONTAL/LAT / PROCEDURE REASON: Urinary frequency * * * * Physician Interpretation * * * * EXAMINATION: CHEST RADIOGRAPH (2 VIEW FRONTAL and LATERAL) CLINICAL HISTORY: Urinary frequency . Chronic cough. MQ: XC2_6 EXAM DATE/TIME: 02/12/2025 3:26 PM COMPARISON: Chest x-ray dated 02/16/2023 RESULT: Lines, tubes, and devices: None. Lungs and pleura: No consolidation. No lung mass. No pleural effusion. No pneumothorax. Cardiomediastinal silhouette: Stable cardiomediastinal silhouette. Bones and soft tissues: Degenerative changes are present within the thoracic spine. IMPRESSION: No acute radiographic abnormality. Articulation Officer: QUINTIN Transcribe Date/Time: Feb 12 2025 4:39P Dictated by : ANNMARIE VÁZQUEZ MD This examination was interpreted and the report reviewed and electronically signed by: ANNMARIE VÁZQUEZ MD on Feb 12 2025 4:40PM EST [id number] Normal [facility] XR Chest PA and Lateralon IMPRESSION: No acute radiographic abnormality. Articulation Officer: [facility] Transcribe Date/Time: Feb 12 2025 4:39P Dictated by : ANNMARIE VÁZQUEZ MD This examination was interpreted and the report reviewed and electronically signed by: ANNMARIE VÁZQUEZ MD on Feb 12 2025 4:40PM EST DIVISION OF RADIOLOGY * * *Final Report* * * DATE OF EXAM: Feb 12 2025 3:26PM WOX [id number] - XR CHEST 2V FRONTAL/LAT / PROCEDURE REASON: Urinary frequency * * * * Physician Interpretation * * * * EXAMINATION: CHEST RADIOGRAPH (2 VIEW FRONTAL & LATERAL) CLINICAL HISTORY: Urinary frequency . Chronic cough. MQ: XC2_6 EXAM DATE/TIME: 02/12/2025 3:26 PM COMPARISON: Chest x-ray dated 02/16/2023 RESULT: Lines, tubes, and devices: None. Lungs and pleura: No consolidation. No lung mass. No pleural effusion. No pneumothorax. Cardiomediastinal silhouette: Stable cardiomediastinal silhouette. Bones and soft tissues: Degenerative changes are present within the thoracic spine. DIVISION OF RADIOLOGY Provider, [facility] - 02/12/2025 * * *Final Report* * * DATE OF EXAM: Feb 12 2025 3:26PM WOX [id number] - XR CHEST 2V FRONTAL/LAT / PROCEDURE REASON: Urinary frequency * * * * Physician Interpretation * * * * EXAMINATION: CHEST RADIOGRAPH (2 VIEW FRONTAL & LATERAL) CLINICAL HISTORY: Urinary frequency . Chronic cough. MQ: XC2_6 EXAM DATE/TIME: 02/12/2025 3:26 PM COMPARISON: Chest x-ray dated 02/16/2023 RESULT: Lines, tubes, and devices: None. Lungs and pleura: No consolidation. No lung mass. No pleural effusion. No pneumothorax. Cardiomediastinal silhouette: Stable cardiomediastinal silhouette. Bones and soft tissues: Degenerative changes are present within the thoracic spine. IMPRESSION IMPRESSION: No acute radiographic abnormality. Articulation Officer: PSCB Transcribe Date/Time: Feb 12 2025 4:39P Dictated by : ANNMARIE VÁZQUEZ MD This examination was interpreted and the report reviewed and electronically signed by: ANNMARIE VÁZQUEZ MD on Feb 12 2025 4:40PM EST [facility] Radiology Study observation (narrative) [facility] XR Chest PA and LateralOrder ed By: Ccf Provider on 02-12-2025 [facility] B. burgdorferi IgG and IgM p marlyn (S)on 01-27-2025 B. burgdorferi IgG+IgM Qn (S) Negative Normal Negative [facility] Comment on above: Order Comment: Speci men Type: BLOOD SPECIMENOrdering Facility: [facility] Address: [address] [place] [address] Result Comment: Rece nt infection with B. burgdorferi sensu lato cannot be excluded if the specimen collected within four weeks after the onset of signs and symptoms or within six weeks after a known tick exposure. Clinical and epidemiological correlation is required. Performed By: #### 3 4942-3 ####[facility] LAB[facility] [id number] [place] [address] [place] CNOVon 01-27-2025 CNOV Office Visit (FAMPWS ) -------- MOLLY HIDALGO ([id number]) 1960 F Date Time Provider Department 01/27/25 11:40 AM NEGRITO WILBURN FAMPWS During your visit today, we recorded the following information about you: Temperature Pulse Respiration Blood pressure 97.8 degrees 81/minute 18/minute 102/64 Weight 62.6 kg Negrito Wilburn MD 01/27/2025 1:43 PM Signed Chief Complaint Patient presents with: Rash: Started approx 5 days ago Recording using ambient [employer] [place] software for draft documentation of the visit was discussed with the patient/authorized admissions representative; all questions welcomed and answered. Patient/authorized admissions representative agreed to proceed HPI Molly Hidalgo is a 64 year old female who presents here today for Above Complaints. Right Elbow Rash: - Rash on right elbow x5 days. - Rash is pruritic, painful, and has raised bumps with clear exudate. - Skin is flaky, similar to previous winter episodes of xerosis on elbows. - No similar rash elsewhere on the body. - No recent exposure to known allergens, chemicals, or irritants. - Denies recent tick bites or contact with poison amy. - No recent changes in medications or detergents. - No associated fevers or chills. - Applied Neosporin and hydrocortisone cream once daily with minimal relief. - Denies wearing any sleeves or coverings on the affected area. Past medical history, appointments, medications, allergies reviewed. Previous Medical History PAST MEDICAL HISTORY Diagnosis Date Abnormal glandular Papanicolaou smear of cervix Abn. Pap smear (cervix) Bulimia Chronic lower back pain Dr. Hall Colon polyps hyperplastic polyp 2014 COPD (chronic obstructive pulmonary disease) (H[facility]) 02/16/2023 Depression Diaphragmatic hernia without mention of obstruction or gangrene Esophageal reflux 06/09/2005 Family history of coronary artery disease Fatty liver 10/19/2023 Fibromyalgia History of alcohol dependence (HCC) History of drug abuse ([facility]) marijuana, cocaine, acid, methamphetamines, speed. Sober since age 20s Hypertension Iron deficiency anemia Lumbar stenosis with neurogenic claudication Mononucleosis Nephrolithiasis PAD (peripheral artery disease) Prediabetes Pure hypercholesterolemia 06/09/2005 Tobacco use Previous Surgical History PAST SURGICAL HISTORY Procedure Laterality Date COLONOSCOPY FLX DX W/COLLJ SPEC WHEN PFRMD 07/23/2013 Colonoscopy COLONOSCOPY FLX DX W/COLLJ SPEC WHEN PFRMD 01/14/2015 Colonoscopy, repeat in 3 years COLONOSCOPY FLX DX W/COLLJ SPEC WHEN PFRMD 10/22/2018 Colonoscopy COLONOSCOPY FLX DX W/COLLJ SPEC WHEN PFRMD 03/2024 repeat 10yrs EGD TRANSORAL BIOPSY SINGLE/MULTIPLE 07/08/2009 ERCP DESTRUCTION/LITHOTRIPSY CALCULI ANY METHOD 2012 ESOPHAGOGASTRODUODENOSCO PY TRANSORAL DIAGNOSTIC 07/23/2013 EGD PAST SURGICAL HISTORY OF 02/2018 L3-4 decompression, TLIF and fusion STEREOTACTIC CORE BIOPSY 02/26/2007 left breast TOTAL ABDOMINAL HYSTERECT W/WO RMVL TUBE OVARY 1980s Hysterectomy, SEKOU. precancerous cells Family History FAMILY HISTORY Problem Relation Age of Onset Heart Father from heart attack, age 50 Hyperlipidemia Father Hypertension Father Hypertension Mother Blood Disease Mother ITP Thyroid Sister Cancer Maternal Grandmother colon Heart Paternal Grandfather Heart Paternal Uncle Cancer Maternal Uncle brain Patient Allergies ALLERGIES Allergen Reactions Iodine [Contrast Dy* Swelling PT HAD A REACTION OF SWELLING IN THROAT,TROUBLE BREATHING 24 HRS AFTER INJECTION OF IV DYE FOR A CT UROGRAM. KK Lipitor [Atorvastat* Other: See Comments Skin turned yellow Current Medications Current Outpatient Medications on File Prior to Visit Medication Sig metFORMIN (GLUCOPHAGE) 500 mg tablet Take 1 tablet by mouth two times a day with meals. . budesonide-formoterol (SYMBICORT) 80-4.5 mcg/actuation inhaler Inhale 2 puffs as instructed two times a day. levothyroxine (SYNTHROID) 25 mcg tablet Take 1 tablet by mouth once daily. rosuvastatin (CRESTOR) 20 mg tablet Take 1 tablet by mouth daily at bedtime. lisinopril (ZESTRIL) 10 mg tablet Take 0.5 tablets by mouth once daily. omeprazole (PRILOSEC) 40 mg capsule Take 1 capsule by mouth once daily. DULoxetine (CYMBALTA) 60 mg capsule Take 1 capsule by mouth once daily. patient assistance buPROPion XL (WELLBUTRIN XL) 300 mg 24 hr tablet Take 1 tablet by mouth once daily. pregabalin (LYRICA) 100 mg capsule Take 1 capsule by mouth two times a day for 90 days. Take one capsule three times a day albuterol HFA (VENTOLIN HFA) 90 mcg/actuation inhaler Inhale 2 Puffs as instructed every 4 hours as needed for wheezing/shortness of breath. nitroglycerin sublingual (NITROSTAT) 0.4 mg SL tablet Dissolve 1 tablet under the tongue every 5 minutes as needed for chest pain. traMADol (more content not included)... Normal [facility] TSH SerPl-aCncon 01-27-2025 TSH Qn 2.810 m[IU]/L Normal 0.270-4.200 [facility] Comment on above: Order Comment: Speci men Type: BLOOD SPECIMENOrdering Facility: [facility] Address: [address] [place] [address] Performed By: #### 3 016-3 ####[facility] LABCLIA [id number] JACKLYN ELLER [address] OF [place] CNPPhyllis 01-13-2025 CNPN Telephone (RADMN) -------- MOLLY HIDALGO ([id number]) 1960 F Date Time Provider Department 01/13/25 DILLAN PEREZ RADMO During your visit today, we recorded the following information about you: Allergies As of Date: 01/13/2025 Noted Allergy Reaction IODINE (CONTRAST DYE) 01/17/2012 7 - Swelling Comments: PT HAD A REACTION OF SWELLING IN THROAT,TROUBLE BREATHING 24 HRS AFTER INJECTION OF IV DYE FOR A CT UROGRAM. KK LIPITOR (ATORVASTATIN CALCIUM) 14 - Other: See Comments Comments: Skin turned yellow Date Reviewed: 12/03/2024 Reviewed by: Trista Espinosa LPN - Fully Assessed Reason for Visit: Mammogram Result Call Back [[id number]] Prescriptions as of 01/13/2025 - metFORMIN (GLUCOPHAGE) 500 mg tablet Take 1 tablet by mouth two times a day with meals. . - budesonide-formoterol (SYMBICORT) 80-4.5 mcg/actuation inhaler Inhale 2 puffs as instructed two times a day. - levothyroxine (SYNTHROID) 25 mcg tablet Take 1 tablet by mouth once daily. - rosuvastatin (CRESTOR) 20 mg tablet Take 1 tablet by mouth daily at bedtime. - lisinopril (ZESTRIL) 10 mg tablet Take 0.5 tablets by mouth once daily. - omeprazole (PRILOSEC) 40 mg capsule Take 1 capsule by mouth once daily. - DULoxetine (CYMBALTA) 60 mg capsule Take 1 capsule by mouth once daily. patient assistance - buPROPion XL (WELLBUTRIN XL) 300 mg 24 hr tablet Take 1 tablet by mouth once daily. - pregabalin (LYRICA) 100 mg capsule Take 1 capsule by mouth two times a day for 90 days. Take one capsule three times a day - albuterol HFA (VENTOLIN HFA) 90 mcg/actuation inhaler Inhale 2 Puffs as instructed every 4 hours as needed for wheezing/shortness of breath. - nitroglycerin sublingual (NITROSTAT) 0.4 mg SL tablet Dissolve 1 tablet under the tongue every 5 minutes as needed for chest pain. - traMADol (ULTRAM) 50 mg tablet Take 50 mg by mouth twice daily. - Cholecalciferol, Vitamin D3, 2,000 unit cap Take 1 tablet by mouth once daily. Meds Comments as of 06/29/2012: Problem List As Of Date 01/13/2025 Noted Resolved Pure hypercholesterolemia [E78.00] 06/09/2005 08/17/2018 ESOPHAGEAL REFLUX [K21.9] 06/09/2005 Other and unspecified alcohol dependence, unspe* 03/15/2023 PMH - PAST MEDICAL HISTORY OF 08/17/2018 CHEST PAIN ANTERIOR CHEST WALL [R07.1] 02/09/2006 08/17/2018 TOBACCO USE DISORDER [F17.200] 02/09/2006 BULIMIA NERVOSA [F50.20] 02/09/2006 ADJUSTMENT DISORDER WITH DEPRESSED MOOD [F43.21]02/03/2009 Diaphragmatic Hernia without Mention of Obstruc*07/08/2009 Bulimia [F50.20] 07/08/2009 08/17/2018 Acute gastritis without mention of hemorrhage [*07/08/2009 08/17/2018 Hypertension [I10] 06/23/2011 Kidney stones [N20.0] 01/10/2012 08/17/2018 Right flank pain [R10.9] 01/10/2012 Hypertriglyceridemia [E78.1] 08/31/2012 08/17/2018 OCD (obsessive compulsive disorder) [F42.9] 12/25/2013 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] 12/25/2013 Nephrolithiasis [N20.0] 12/25/2013 Fibromyalgia [M79.7] 05/14/2016 Alcohol dependence (HCC) [F10.20] 08/17/2016 03/15/2023 Spinal stenosis, lumbar region with neurogenic *01/10/2018 Spondylolisthesis of lumbar region [M43.16] 01/10/2018 Lumbar stenosis with neurogenic claudication [M*02/22/2018 Acute postoperative pain [G89.18] 02/23/2018 Hyperlipidemia, mixed [E78.2] 08/17/2018 Depression [F32.A] History of alcohol dependence (HCC) [F10.21] 03/15/2023 Iron deficiency anemia [D50.9] COPD (chronic obstructive pulmonary disease) (H*02/16/2023 Encounter Status:Closed by MELINDA ELLSWORTH on 01/13/25 Normal [facility] 25(OH)D3 SerPl-ncon 2024 25-hydroxyvitamin D3 [Mass/Vol] 76.0 ng/mL Normal 31.0-80.0 [facility] Comment on above: Order Comment: Speci men Type: BLOOD SPECIMENOrdering Facility: [facility] Address: [address] [place] [address] Result Comment: Clas sification of 25 [place] Vitamin D status: Deficiency/Insufficiency: < or = 30 ng/ml. Sufficiency/Optimal Levels: 31-80 ng/mL Toxicity: > 100 ng/mL. Test performed by chemiluminescent immunoassay. Performed By: #### 1 989-3 ####[facility] LABCLIA [id number] [place] [address] [place] BD DXA - AXIAL SKELETONon BD DXA - AXIAL SKELETON * * *Final Report* * * DATE OF EXAM: Jan 09 2025 2:20PM WRB [id number] - BD DXA - AXIAL SKELETON / PROCEDURE REASON: Asymptomatic menopause * * * * Physician Interpretation * * * * EXAMINATION: DXA BONE DENSITOMETRY BD DXA - AXIAL SKELETON PATIENT DEMOGRAPHICS: Age: 64 years, Gender: Female SCANNER INFORMATION: DXA Model: [employer] - [employer] C [id number] Date Scanned: 01/09/2025 2:20 PM CLINICAL HISTORY: DIAGNOSTIC Asymptomatic menopause . RISK FACTORS FOR OSTEOPOROSIS AND ASSOCIATED FRACTURES REPORTED BY THIS PATIENT: Please refer to Bone Health Questionnaire in the EMR CURRENT THERAPY: Please refer to Bone Health Questionnaire in the EMR TECHNICAL LIMITATIONS: spine surgery RESULTS: Right Femoral Neck: 0.563 g/cm2, T-score -2.6, Z-score -1.1 Right Total Hip: 0.749 g/cm2, T-score -1.6, Z-score -0.4 Left Femoral Neck: 0.625 g/cm2, T-score -2.0, Z-score -0.5 Left Total Hip: 0.763 g/cm2, T-score -1.5, Z-score -0.2 No comparison data - the patient has not had a previous bone density in the [facility] or the previous bone density was performed on a different DXA machine (new, updated model or different location) within the [facility]. IMPRESSION: THE LOWEST T-SCORE IS -2.6 IN THE RIGHT HIP 1) DIAGNOSIS (based on BMD alone): OSTEOPOROSIS Caution: Medical conditions other than osteoporosis may cause low bone density, such as osteomalacia or renal osteodystrophy. Clinical correlation is necessary. 2) FRACTURE RISK (based on FRAX): 10-year absolute fracture risk: - major osteoporotic fracture = 14 % - hip fracture = 4.7 % - A diagnosis of Osteoporosis, a 10 year probability of hip fracture greater than or equal to 3% or a 10 year probability of any major osteoporosis-related fracture greater than or equal to 20% should be considered for treatment. - DXA scanner generated FRAX calculations may slightly differ from online FRAX calculations due to differences in software versions. - All recommendations and calculations are to be considered as guidelines and should not replace sound clinical judgement - Caution: Fracture risk may be increased independent of BMD in patients with corticosteroid use, age greater than 65 years, or a history of prior fragility fracture. RECOMMENDATIONS: Follow-up in 2 years or as clinically indicated. Patients that are taking corticosteroids, are transplant recipients or have hyperparathyroidism should have annual follow-up. Follow-up scans should always be done on the same machine for accurate comparison. FOR MORE INFORMATION ABOUT DIAGNOSIS AND TREATMENT: [facility] [facility]:? www.ccf.org/arthritis/os davion National Osteoporosis Foundation:? www.nof.org International Society of Clinical Densitometry www.iscd.org Articulation Officer: QUINTIN Transcribe Date/Time: Jan 13 2025 5:50A Dictated by : ANNMARIE VÁZQUEZ MD This examination was interpreted and the report reviewed and electronically signed by: ANNMARIE VÁZQUEZ MD on Jan 13 2025 5:51AM EST [id number] -2.6 Normal [facility] EDDY SCREENING W TOMOon 01-09 EDDY SCREENING W ROXANNE * * *Final Report* * * DATE OF EXAM: Jan 09 2025 2:35PM [id number] [id number] - EDDY SCREENING W ROXANNE / PROCEDURE REASON: Encounter for screening mammogram for breast cancer * * * * Physician Interpretation * * * * RESULT: [place] [address] #[id number] - EDDY SCREENING W ROXANNE HISTORY: 64 year-old patient seen for screening. Patient is asymptomatic in both breasts. Patient states no personal history of breast cancer. COMPARISON STUDIES: The present examination has been compared to prior imaging studies dated 10/03/2018 (mammogram), 03/23/2020 (mammogram), 04/21/2020 (mammogram), 03/14/2022 (mammogram), 05/03/2022 (mammogram) and 06/13/2023 (mammogram). MAMMOGRAM TECHNIQUE: The study was acquired using full field digital technology and interpreted from soft copy. Digital Breast Tomosynthesis (DBT) images were obtained and used to assist in the interpretation of this examination. MAMMOGRAM FINDINGS: The breasts are heterogeneously dense, which may obscure small masses. There is an asymmetry with architectural distortion in the left breast at 12 o'clock, middle depth. In the right breast, no suspicious masses, calcifications or other abnormalities are seen. IMPRESSION: The architectural distortion in the left breast at 12 o'clock, middle depth requires additional evaluation. Diagnostic mammogram with possible ultrasound is recommended. BI-RADS Category 0: Incomplete: Needs Additional Imaging Evaluation RISK: Based on the Tyrer-Cuzick (TC) risk assessment model, this patient has a 12.8% lifetime risk of developing breast cancer, meaning they are at average risk for developing breast cancer. However, this is only an estimate based on available history provided on the patient's questionnaire. We encourage all patients to talk with their providers about these results, further recommendations for managing breast health, and appropriate supplemental screening options if the patient has dense breast tissue. Interpreting Radiologist: Dillan Perez M.D. Electronically signed on: 01/13/2025 Articulation Officer: REEMA Newbyrilatrice Date/Time: Jan 09 2025 2:23P Dictated by: DILLAN PEREZ MD This examination was interpreted and the report reviewed and electronically signed by: DILLAN PEREZ MD on Jan 13 2025 3:01PM EST [id number] Normal [facility] MOLLY HIDALGO ([id number]) 1960 F Date Time Provider Department 12/11/24 [facility] During your visit today, we recorded the following information about you: Roberta Diallo LPN 12/11/2024 2:01 PM Signed Patient calling she got the results of the Vitamin D. but did not get anything about the repeat TSH, Free T4 results. She is concerned since she is sleeping most of the day, she is up about 6 to 7 hours. She does not take any thyroid medication. Aware PCP and Jessica Duque are out of the office. Please advise Latest Ref Rng 12/06/2024 TSH 0.270 - 4.200 mIU/L 4.490 (H) Free T4 0.9 - 1.7 ng/dL 0.7 (L) Legend: (H) High (L) Low Jeanne Cotton APRN.COLD ROLLING SUPERVISOR 12/12/2024 10:32 AM Signed Please let patient know her TSH is lower than previous but still elevated. I have sent in a prescription for synthroid for her to start and repeat in TSH 2 months. Bing Bryan, GIUSEPPE 12/12/2024 11:36 AM Signed Pt called and is notified of providers results and instructions. Pt voices understanding. Bing Bryan RN Allergies As of Date: 12/11/2024 Noted Allergy Reaction IODINE (CONTRAST DYE) 01/17/2012 7 - Swelling Comments: PT HAD A REACTION OF SWELLING IN THROAT,TROUBLE BREATHING 24 HRS AFTER INJECTION OF IV DYE FOR A CT UROGRAM. KK LIPITOR (ATORVASTATIN CALCIUM) 14 - Other: See Comments Comments: Skin turned yellow Date Reviewed: 12/03/2024 Reviewed by: Trista Espinosa LPN - Fully Assessed Reason for Visit: TSH results [Other] Primary Visit Diagnosis:Elevated TSH [R79.89] Order(s):levothyroxine (SYNTHROID) 25 mcg tabletTake 1 tablet by mouth once daily.Disp: 90 tabletRfl: 0 THYROID STIMULATING HORMONE [SQTSH] Order #: [id number] FUTURE Prescriptions as of 12/12/2024 - levothyroxine (SYNTHROID) 25 mcg tablet Take 1 tablet by mouth once daily. - rosuvastatin (CRESTOR) 20 mg tablet Take 1 tablet by mouth daily at bedtime. - lisinopril (ZESTRIL) 10 mg tablet Take 0.5 tablets by mouth once daily. - omeprazole (PRILOSEC) 40 mg capsule Take 1 capsule by mouth once daily. - DULoxetine (CYMBALTA) 60 mg capsule Take 1 capsule by mouth once daily. patient assistance - buPROPion XL (WELLBUTRIN XL) 300 mg 24 hr tablet Take 1 tablet by mouth once daily. - pregabalin (LYRICA) 100 mg capsule Take 1 capsule by mouth two times a day for 90 days. Take one capsule three times a day - metFORMIN (GLUCOPHAGE) 500 mg tablet Take 1 tablet by mouth two times a day with meals. . - budesonide-formoterol (SYMBICORT) 80-4.5 mcg/actuation inhaler Inhale 2 Puffs as instructed two times a day. - albuterol HFA (VENTOLIN HFA) 90 mcg/actuation inhaler Inhale 2 Puffs as instructed every 4 hours as needed for wheezing/shortness of breath. - nitroglycerin sublingual (NITROSTAT) 0.4 mg SL tablet Dissolve 1 tablet under the tongue every 5 minutes as needed for chest pain. - traMADol (ULTRAM) 50 mg tablet Take 50 mg by mouth twice daily. - Cholecalciferol, Vitamin D3, 2,000 unit cap Take 1 tablet by mouth once daily. Meds Comments as of 06/29/2012: Problem List As Of Date 12/11/2024 Noted Resolved Pure hypercholesterolemia [E78.00] 06/09/2005 08/17/2018 ESOPHAGEAL REFLUX [K21.9] 06/09/2005 Other and unspecified alcohol dependence, unspe* 03/15/2023 PMH - PAST MEDICAL HISTORY OF 08/17/2018 CHEST PAIN ANTERIOR CHEST WALL [R07.1] 02/09/2006 08/17/2018 TOBACCO USE DISORDER [F17.200] 02/09/2006 BULIMIA NERVOSA [F50.20] 02/09/2006 ADJUSTMENT DISORDER WITH DEPRESSED MOOD [F43.21]02/03/2009 Diaphragmatic Hernia without Mention of Obstruc*07/08/2009 Bulimia [F50.20] 07/08/2009 08/17/2018 Acute gastritis without mention of hemorrhage [*07/08/2009 08/17/2018 Hypertension [I10] 06/23/2011 Kidney stones [N20.0] 01/10/2012 08/17/2018 Right flank pain [R10.9] 01/10/2012 Hypertriglyceridemia [E78.1] 08/31/2012 08/17/2018 OCD (obsessive compulsive disorder) [F42.9] 12/25/2013 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] 12/25/2013 Nephrolithiasis [N20.0] 12/25/2013 Fibromyalgia [M79.7] 05/14/2016 Alcohol dependence (HCC) [F10.20] 08/17/2016 03/15/2023 Spinal stenosis, lumbar region with neurogenic *01/10/2018 Spondylolisthesis of lumbar region [M43.16] 01/10/2018 Lumbar stenosis with neurogenic claudication [M*02/22/2018 Acute postoperative pain [G89.18] 02/23/2018 Hyperlipidemia, mixed [E78.2] 08/17/2018 Depression [F32.A] History of alcohol dependence (HCC) [F10.21] 03/15/2023 Iron deficiency anemia [D50.9] COPD (chronic obstructive pulmonary disease) (H*02/16/2023 Prescriptions ordered this encounter Disp Refills Start End LEVOTHYROXINE 25 MCG TABLET 90 t* 0 12/12/2024 Route: ORAL Sig: Take 1 tablet by mouth once daily. Encounter Status:Closed by BING BRYAN on 12/12/24 Normal [facility] 25(OH)D3 SerPl-mCncon 2024 25-hydroxyvitamin D3 [Mass/Vol] 136.0 ng/mL High 31.0-80.0 [facility] Comment on above: Order Comment: Speci men Type: BLOOD SPECIMENOrdering Facility: [facility] Address: [address] [place] [address] Result Comment: Clas sification of 25 [place] Vitamin D status: Deficiency/Insufficiency: < or = 30 ng/ml. Sufficiency/Optimal Levels: 31-80 ng/mL Toxicity: > 100 ng/mL. Test performed by chemiluminescent immunoassay. Performed By: #### 1 989-3 ####[facility] LABCLIA [id number] [place] [address] [place] T4 Free SerPl-mCncon 025 Free T4 [Mass/Vol] 0.7 ng/dL Low 0.9-1.7 [facility] Comment on above: Order Comment: Caio cali Type: BLOOD SPECIMEN [facility] Address: [address] [place] [address] Performed By: #### 3 024-7, 3016-3 #### [facility] CLIA [id number] [address] [place] [address] [place] TSH SerPl-aCncon 12-06-2024 TSH Qn 4.490 m[IU]/L High 0.270-4.200 [facility] Comment on above: Order Comment: [place]io cali Type: BLOOD SPECIMEN [facility] Address: [address] [place] [address] Performed By: #### 3 024-7, 3016-3 #### [facility] CLIA [id number] [address] [place], [place] [id number] [place] 25(OH)D3 SerPl-mCncon 2024 25-hydroxyvitamin D3 [Mass/Vol] 130.0 ng/mL High 31.0-80.0 [facility] Comment on above: Order Comment: Speci men Type: BLOOD SPECIMENOrdering Facility: [facility] Address: [address] [place] [address] Performed By: #### 1 989-3 ####[facility] LABCLIA [id number] [place] [address] [place] CBC W Auto Differential pane l (Bld)on 12-03-2024 Basophils (Bld) [#/Vol] 0.11 10*3/uL High [facility] Basophils/100 WBC (Bld) 1.1 % [facility] Differential cell count method Nom (Bld) Auto [facility] Eosinophils (Bld) [#/Vol] 0.76 10*3/uL High [facility] Eosinophils/100 WBC (Bld) 7.8 % [facility] Erythrocyte distribution width (RBC) [Ratio] 12.5 % 11.5 - 15.0 % [facility] Hematocrit (Bld) [Volume fraction] 42.8 % 36.0 - 46.0 % [facility] Hemoglobin (Bld) [Mass/Vol] 14.1 g/dL 11.5 - 15.5 g/dL [facility] Immature granulocytes (Bld) [#/Vol] 0.12 10*3/uL High [facility] Immature granulocytes/100 WBC (Bld) 1.2 % [facility] Interpretation and review of laboratory results Abnormal [facility] Lymphocytes (Bld) [#/Vol] 3.31 10*3/uL [facility] Lymphocytes/100 WBC (Bld) 34.1 % [facility] MCH (RBC) [Entitic mass] 30.3 pg 26.0 - 34.[address] [facility] MCHC (RBC) [Mass/Vol] 32.9 g/dL 30.5 - 36.0 g/dL [facility] MCV (RBC) [Entitic vol] 92 fL 80.0 - 100.[address] [facility] Monocytes (Bld) [#/Vol] 0.95 10*3/uL High NINF [facility] Monocytes/100 WBC (Bld) 9.8 % [facility] Neutrophils (Bld) [#/Vol] 4.47 10*3/uL [facility] Neutrophils/100 WBC (Bld) 46 % [facility] Nucleated RBC (Bld) [#/Vol] NINF [facility] Nucleated RBC/100 WBC (Bld) [Ratio] 0 % /[address] [facility] Platelet mean volume (Bld) [Entitic vol] 9.7 fL 9.0 - 12.[address] [facility] Platelets (Bld) [#/Vol] 266 10*3/uL [facility] RBC (Bld) [#/Vol] 4.65 10*6/uL 3.90 - 5.2 0 m/uL [facility] WBC (Bld) [#/Vol] 9.72 10*3/uL [facility] Basophils (Bld) [#/Vol] 0.11 10*3/uL High <0.11 [facility] Comment on above: Order Comment: Speci men Type: BLOOD SPECIMENOrdering Facility: [facility] Address: [address] [place] [address] Performed By: #### 5 7021-8 ####[facility] LABCLIA [id number] [place] [address] [place] Basophils/100 WBC (Bld) 1.1 % Normal [facility] Comment on above: Order Comment: Speci men Type: BLOOD SPECIMENOrdering Facility: [facility] Address: [address] [place] [address] Performed By: #### 5 7021-8 ####[facility] LABCLIA [id number] [place] [address] [place] Differential cell count method Nom (Bld) Auto Normal [facility] Comment on above: Order Comment: Speci men Type: BLOOD SPECIMENOrdering Facility: [facility] Address: [address] [place] [address] Performed By: #### 5 7021-8 ####[facility] LABCLIA [id number] [address], [place] [address] [place] Eosinophils (Bld) [#/Vol] 0.76 10*3/uL High <0.46 [facility] Comment on above: Order Comment: Speci men Type: BLOOD SPECIMENOrdering Facility: [facility] Address: [address] [place] [address] Performed By: #### 5 7021-8 ####[facility] LABCLIA [id number] [address], [place] [address] [place] Eosinophils/100 WBC (Bld) 7.8 % Normal [facility] Comment on above: Order Comment: Speci men Type: BLOOD SPECIMENOrdering Facility: [facility] Address: [address] [place] [address] Performed By: #### 5 7021-8 ####[facility] LABIA [id number] [address], [place] [address] [place] Erythrocyte distribution width (RBC) [Ratio] 12.5 % Normal 11.5-15.0 [facility] Comment on above: Order Comment: Speci men Type: BLOOD SPECIMENOrdering Facility: [facility] Address: [address] [place] [address] Performed By: #### 5 7021-8 ####[facility] LABCLIA [id number] [place] [address] [place] Hematocrit (Bld) [Volume fraction] 42.8 % Normal 36.0-46.0 [facility] Comment on above: Order Comment: Speci men Type: BLOOD SPECIMENOrdering Facility: [facility] Address: [address] [place] [address] Performed By: #### 5 7021-8 ####[facility] LABCLIA [id number] [address], [facility] [place] Hemoglobin (Bld) [Mass/Vol] 14.1 g/dL Normal 11.5-15.5 [facility] Comment on above: Order Comment: Speci men Type: BLOOD SPECIMENOrdering Facility: [facility] Address: [address] [place] [address] Performed By: #### 5 7021-8 ####[facility] LABCLIA [id number] [address] [place] [address] [place] Immature granulocytes (Bld) [#/Vol] 0.12 10*3/uL High <0.10 [facility] Comment on above: Order Comment: Speci men Type: BLOOD SPECIMENOrdering Facility: [facility] Address: [address] [place] [address] Performed By: #### 5 7021-8 ####[facility] LABCLIA [id number] [place] [address] [place] Immature granulocytes/100 WBC (Bld) 1.2 % Normal [facility] Comment on above: Order Comment: Speci men Type: BLOOD SPECIMENOrdering Facility: [facility] Address: [address] [place] [address] Performed By: #### 5 7021-8 ####[facility] LABCLIA [id number] [place] [address] [place] Lymphocytes (Bld) [#/Vol] 3.31 10*3/uL Normal 1.00-4.00 [facility] Comment on above: Order Comment: Speci men Type: BLOOD SPECIMENOrdering Facility: [facility] Address: [address] [place] [address] Performed By: #### 5 7021-8 ####[facility] LABCLIA [id number] [place] [id number] [place] Lymphocytes/100 WBC (Bld) 34.1 % Normal [facility] Comment on above: Order Comment: Speci men Type: BLOOD SPECIMENOrdering Facility: [facility] Address: [address] [place] [address] Performed By: #### 5 7021-8 ####[facility] LABIA [id number] [place] [address] [place] MCH (RBC) [Entitic mass] 30.3 pg Normal 26.0-34.0 [facility] Comment on above: Order Comment: Speci men Type: BLOOD SPECIMENOrdering Facility: [facility] Address: [address] [place] [address] Performed By: #### 5 7021-8 ####[facility] LABIA [id number] [place] [address] [place] MCHC (RBC) [Mass/Vol] 32.9 g/dL Normal 30.5-36.0 [facility] Comment on above: Order Comment: Speci men Type: BLOOD SPECIMENOrdering Facility: [facility] Address: [address] [place] [address] Performed By: #### 5 7021-8 ####[facility] LABIA [id number] [place] [address] [place] MCV (RBC) [Entitic vol] 92.0 fL Normal 80.0-100.0 [facility] Comment on above: Order Comment: Speci men Type: BLOOD SPECIMENOrdering Facility: [facility] Address: [address] [place] [address] Performed By: #### 5 7021-8 ####[facility] [id number] [place] [address] [place] Monocytes (Bld) [#/Vol] 0.95 10*3/uL High <0.87 [facility] Comment on above: Order Comment: Speci men Type: BLOOD SPECIMENOrdering Facility: [facility] Address: [address] [place] [address] Performed By: #### 5 7021-8 ####[facility] LABIA [id number] [place] [address] [place] Monocytes/100 WBC (Bld) 9.8 % Normal [facility] Comment on above: Order Comment: Speci men Type: BLOOD SPECIMENOrdering Facility: [facility] Address: [address] [place] [address] Performed By: #### 5 7021-8 ####[facility] LABCLIA [id number] [place] [id number] [place] Neutrophils (Bld) [#/Vol] 4.47 10*3/uL Normal 1.45-7.50 [facility] Comment on above: Order Comment: Speci men Type: BLOOD SPECIMENOrdering Facility: [facility] Address: [address] [place] [address] Performed By: #### 5 7021-8 ####[facility] LABCLIA [id number] [place] [address] [place] Neutrophils/100 WBC (Bld) 46.0 % Normal [facility] Comment on above: Order Comment: Speci men Type: BLOOD SPECIMENOrdering Facility: [facility] Address: [address] [place] [address] Performed By: #### 5 7021-8 ####[facility] LABCLIA [id number] [place] [address] [place] Nucleated RBC (Bld) [#/Vol] 10*3/uL Normal <0.01 [facility] Comment on above: Order Comment: Speci men Type: BLOOD SPECIMENOrdering Facility: [facility] Address: [address] [place] [address] Performed By: #### 5 7021-8 ####[facility] LABCLIA [id number] [place] [address] [place] Nucleated RBC/100 WBC (Bld) [Ratio] 0.0 /100 WBC Normal [facility] Comment on above: Order Comment: Speci men Type: BLOOD SPECIMENOrdering Facility: [facility] Address: [address] [place] [address] Performed By: #### 5 7021-8 ####[facility] LABCLIA [id number] [facility] [address] [place] [address] [place] Platelet mean volume (Bld) [Entitic vol] 9.7 fL Normal 9.0-12.7 [facility] Comment on above: Order Comment: Speci men Type: BLOOD SPECIMENOrdering Facility: [facility] Address: [address] [place] [address] Performed By: #### 5 7021-8 ####[facility]CLIA [id number] [facility] [address] [place] [address] [place] Platelets (Bld) [#/Vol] 266 10*3/uL Normal 150-400 [facility] Comment on above: Order Comment: Speci men Type: BLOOD SPECIMENOrdering Facility: [facility] Address: [address] [place] [address] Performed By: #### 5 7021-8 ####[facility] LABIA [id number] [address] [place] [address] [place] RBC (Bld) [#/Vol] 4.65 10*6/uL Normal 3.90-5.20 [place] Comment on above: Order Comment: Speci men Type: BLOOD SPECIMENOrdering Facility: [facility] Address: [address] [place] [address] Performed By: #### 5 7021-8 ####[facility] LABCLIA [id number] [address] [place] [address] [place] WBC (Bld) [#/Vol] 9.72 10*3/uL Normal 3.70-11.00 [place] Comment on above: Order Comment: Speci men Type: BLOOD SPECIMENOrdering Facility: [facility] Address: [address] [place] [address] Performed By: #### 5 7021-8 ####[facility] LABIA [id number] [address] [place] [address] [facility] CNOVon 12-03-2024 CNOV Office Visit (FAMPWS ) -------- MOLLY HIDALGO ([id number]) 1960 F Date Time Provider Department 12/03/24 12:00 PM JESSICA PALENCIA During your visit today, we recorded the following information about you: Pulse Respiration Blood pressure Weight 80/minute 18/minute 126/84 60.9 kg Jessica Palencia APRN.COLD ROLLING SUPERVISOR 12/03/2024 1:03 PM Signed 12/03/2024 Patient presents with: F/U 6 months SUBJECTIVE: This is a 64 year old that is here today for Above Complaints. Followed-up with cardiology on 03/11/[address] scan. Has not completed stress test as ordered. HTN: Patient is compliant with meds Yes Monitors bp at home: No. Denies side effects: Yes. Chest pain: No. Dyspnea: No. Edema: No. Palpitations: No. Syncope: No. Headache: No. Dizziness: No. Prediabetes: stays active. Tries to maintain healthy balanced diet. Taking Metformin as prescribed. Denies visual changes, polyuria or polydipsia GERD: taking Omeprazole as prescribed without side effects. Works well to control symptoms HYPERLIPIDEMIA: Patient is taking medications: Yes. Patient is watching diet: Yes. Patient denies myalgias: Yes. Patient denies gi upset: Yes COPD: does not routinely use inhalers. Tobacco use: smoking 4-7 cigarettes a day. Admits to SOB with exertion. Denies cough, wheezing, dyspnea or hemoptysis Depression: taking Wellbutrin as prescribed without side effects. Does not attend counseling. Denies SI or HI Follows with pain management for hx of chronic back pain Feels fatigued quite a lot. Sleeps well. Doesn't thinks she snores. Doesn't feel rested when she gets up PAST MEDICAL HISTORY Diagnosis Date Abnormal glandular Papanicolaou smear of cervix Abn. Pap smear (cervix) Bulimia Chronic lower back pain Dr. Hall Colon polyps hyperplastic polyp 2014 COPD (chronic obstructive pulmonary disease) ([facility]) 02/16/2023 Depression 1980s Diaphragmatic hernia without mention of obstruction or gangrene Esophageal reflux 06/09/2005 Family history of coronary artery disease Fatty liver 10/19/2023 Fibromyalgia History of alcohol dependence ([facility]) History of drug abuse ([facility]) marijuana, cocaine, acid, methamphetamines, speed. Sober since age 20s Hypertension Iron deficiency anemia Lumbar stenosis with neurogenic claudication Mononucleosis Nephrolithiasis PAD (peripheral artery disease) ([facility]) Prediabetes Pure hypercholesterolemia 06/09/2005 Tobacco use ALLERGIES Iodine [Contrast Dye] and Lipitor [Atorvastatin Calcium] MEDICATIONS Current Outpatient Medications Medication Sig rosuvastatin (CRESTOR) 20 mg tablet Take 1 tablet by mouth daily at bedtime. lisinopril (ZESTRIL) 10 mg tablet Take 0.5 tablets by mouth once daily. omeprazole (PRILOSEC) 40 mg capsule Take 1 capsule by mouth once daily. DULoxetine (CYMBALTA) 60 mg capsule Take 1 capsule by mouth once daily. patient assistance buPROPion XL (WELLBUTRIN XL) 300 mg 24 hr tablet Take 1 tablet by mouth once daily. colchicine 0.6 mg tablet Take 2 tabs by mouth, followed by 1 tab one hour later for gout flare. May repeat in 1 week. pregabalin (LYRICA) 100 mg capsule Take 1 capsule by mouth two times a day for 90 days. Take one capsule three times a day metFORMIN (GLUCOPHAGE) 500 mg tablet Take 1 tablet by mouth two times a day with meals. . budesonide-formoterol (SYMBICORT) 80-4.5 mcg/actuation inhaler Inhale 2 Puffs as instructed two times a day. albuterol HFA (VENTOLIN HFA) 90 mcg/actuation inhaler Inhale 2 Puffs as instructed every 4 hours as needed for wheezing/shortness of breath. nitroglycerin sublingual (NITROSTAT) 0.4 mg SL tablet Dissolve 1 tablet under the tongue every 5 minutes as needed for chest pain. traMADol (ULTRAM) 50 mg tablet Take 50 mg by mouth twice daily. Cholecalciferol, Vitamin D3, 2,000 unit cap Take 1 tablet by mouth once daily. No current facility-administered medications for this visit. Medications and allergies reviewed by this provider. SOCIAL HISTORY Social History Tobacco Use Smoking status: Every Day Current packs/day: 0.00 Types: Cigarettes Start date: 12/09/1967 Last attempt to quit: 12/08/2017 Years since quittin.9 Smokeless tobacco: Never Tobacco comments: Reports 7 cigarettes daily as of 04/09/2024 Vaping Use Vaping status: Never Used Substance Use Topics Alcohol use: Yes Comment: socially Drug use: No Comment: none in many yrs REVIEW OF SYSTEMS All other reviewed and negative other than HPI. OBJECTIVE: BP 126/84 Pulse 80 Resp 18 Wt 60.9 kg (134 lb 4.2 oz) LMP 08/02/2005 SpO2 94% BMI 26.53 kg/m? . Vital signs reviewed by this provider. APPEARANCE Well appearing, alert, in no acute distress, well-hydrated, well nourished. EYES conjunctiva and sclera normal. HEART RRR with normal S1 and S2, no murmurs, no gallops, no JVD appreci (more content not included)... Normal [facility] Comprehensive metabolic 2000 panelon 12-03-2024 Albumin [Mass/Vol] 4.3 g/dL Normal 3.9-4.9 [facility] Comment on above: Order Comment: Speci men Type: BLOOD SPECIMENOrdering Facility: [facility] Address: [address] [place] [address] Performed By: #### 2 132-9, 85044-2, 3016-3 ####[facility] LABCLIA [id number] [place] [address] [place] ALP [Catalytic activity/Vol] 75 U/L Normal 34-123 [facility] Comment on above: Order Comment: Speci men Type: BLOOD SPECIMENOrdering Facility: [facility] Address: [address] [place] [address] Performed By: #### 2 132-9, 43709-8, 3016-3 ####[facility] LABCLIA [id number] [address] [address] [place] ALT [Catalytic activity/Vol] 30 U/L Normal 7-38 [facility] Comment on above: Order Comment: Speci men Type: BLOOD SPECIMENOrdering Facility: [facility] Address: [address] [place] [address] Performed By: #### 2 132-9, 32881-3, 6-3 ####[facility] LABCLIA [id number] [facility] [address] [address] [place] Anion gap [Moles/Vol] 12 mmol/L Normal 8-15 [facility] Comment on above: Order Comment: Speci men Type: BLOOD SPECIMENOrdering Facility: [facility] Address: [address] [place] [address] Performed By: #### 2 132-9, 48680-8, 3015-3 ####[facility] LABCLIA [id number] [address] [address] [place] AST [Catalytic activity/Vol] 21 U/L Normal 13-35 [facility] Comment on above: Order Comment: Speci men Type: BLOOD SPECIMENOrdering Facility: [facility] Address: [address] [place] [address] Performed By: #### 2 132-9, 52783-0, 3 ####[facility] LABCLIA [id number] [facility] [address] [address] [place] Bilirubin [Mass/Vol] 0.3 mg/dL Normal 0.2-1.3 [facility] Comment on above: Order Comment: Speci men Type: BLOOD SPECIMENOrdering Facility: [facility] Address: [address] [place], [place] [address] Performed By: #### 2 132-9, 79316-8, 6-3 ####[facility] LABCLIA [id number] [facility] [address] [address] [place] Calcium [Mass/Vol] 9.8 mg/dL Normal 8.5-10.2 [facility] Comment on above: Order Comment: Speci men Type: BLOOD SPECIMENOrdering Facility: [facility] Address: [address] [place], [place] [address] Performed By: #### 2 132-9, 59585-9, 3016-3 ####[facility] LABCLIA [id number] [place] [id number] [place] Chloride [Moles/Vol] 102 mmol/L Normal 98-107 [facility] Comment on above: Order Comment: Speci men Type: BLOOD SPECIMENOrdering Facility: [facility] Address: [address] [place] [address] Performed By: #### 2 132-9, 94748-5, 6-3 ####[facility] LABCLIA [id number] [place] [id number] [place] CO2 [Moles/Vol] 26 mmol/L Normal 22-30 [facility] Comment on above: Order Comment: Speci men Type: BLOOD SPECIMENOrdering Facility: [facility] Address: [address] [place] [address] Performed By: #### 2 132-9, 08625-3, 6-3 ####[facility] LABIA [id number] [place] [id number] [place] Creatinine [Mass/Vol] 0.90 mg/dL Normal 0.58-0.96 [facility] Comment on above: Order Comment: Speci men Type: BLOOD SPECIMENOrdering Facility: [facility] Address: [address] [place] [address] Performed By: #### 2 132-9, 76736-4, 3016-3 ####[facility] LABIA [id number] [place] [id number] [place] Creatinine and Glomerular filtration rate.predicted panel (S/P/Bld) 71 mL/min/1.73m??? Normal >=60 [facility] Comment on above: Order Comment: Speci men Type: BLOOD SPECIMENOrdering Facility: [facility] Address: [address] [place] [id number] Result Comment: Fanny mated Glomerular Filtration Rate (eGFR) is calculated using the 2020 CKD-EPI creatinine equation. This equation utilizes serum creatinine, sex, and age as parameters. The creatinine assay has traceable calibration to isotope dilution-mass spectrometry. Refer to KDIGO guidelines for clinical interpretation. In patients with unstable renal function, e.g. those with acute kidney injury, the eGFR may not accurately reflect actual GFR. Performed By: #### 2 132-9, 93068-6, 6-3 ####[facility] LABIA [id number] [place] [address] [place] Glucose [Mass/Vol] 101 mg/dL High 74-99 [facility] Comment on above: Order Comment: Caio cali Type: BLOOD SPECIMENOrdering Facility: [facility] Address: [address] [place] [address] Result Comment: The [place] [employer] (ADA) provides guidance for cutoff values for fasting glucose and random glucose. The ADA defines fasting as no caloric intake for at least 8 hours. Fasting plasma glucose results between 100 to 125 mg/dL indicate increased risk for diabetes (prediabetes). Fasting plasma glucose results greater than or equal to 126 mg/dL meet the criteria for diagnosis of diabetes. In the absence of unequivocal hyperglycemia, results should be confirmed by repeat testing. In a patient with classic symptoms of hyperglycemia or hyperglycemic crisis, random plasma glucose results greater than or equal to 200 mg/dL meet the criteria for diagnosis of diabetes. Reference: Standards of Medical Care in Diabetes 2016, [place] [employer]. Diabetes Care. 2016.39(Suppl 1). Performed By: #### 2 132-9, 43833-8, 6-3 ####[facility] LABIA [id number] [place] [id number] [place] Potassium [Moles/Vol] 4.4 mmol/L Normal 3.7-5.1 [facility] Comment on above: Order Comment: Speccurtis cali Type: BLOOD SPECIMENOrdering Facility: [facility] Address: [address] [place] [address] Performed By: #### 2 132-9, 32733-6, 3016-3 ####[facility] LABIA [id number] [address] [address] [place] Protein [Mass/Vol] 7.1 g/dL Normal 6.3-8.0 [facility] Comment on above: Order Comment: Speci men Type: BLOOD SPECIMENOrdering Facility: [facility] Address: [address] [place] [address] Performed By: #### 2 132-9, 33660-5, 6-3 ####[facility] LAB[facility] [id number] [place] [id number] [place] Sodium [Moles/Vol] 140 mmol/L Normal 136-144 [facility] Comment on above: Order Comment: Speci men Type: BLOOD SPECIMENOrdering Facility: [facility] Address: [address] [place] [address] Performed By: #### 2 132-9, 32595-2, 3015-3 ####[facility] [id number] [place] [id number] [place] Urea nitrogen [Mass/Vol] 16 mg/dL Normal 7-21 [facility] Comment on above: Order Comment: Speci men Type: BLOOD SPECIMENOrdering Facility: [facility] Address: [address] [place] [address] Performed By: #### 2 132-9, 24836-7, 6-3 ####[facility] LAB[facility] [id number] [address] [address] [place] TSH SerPl-aCncon 12-03-2024 TSH Qn 4.870 m[IU]/L High 0.270-4.200 [facility] Comment on above: Order Comment: Speci men Type: BLOOD SPECIMENOrdering Facility: [facility] Address: [address] [place] [address] Performed By: #### 2 132-9, 02427-4, 6-3 ####[facility] LABCLIA [id number] [address] [address] [place] Vit B12 [facility] 03-18-2 025 Cobalamin (Vitamin B12) [Mass/Vol] 405 pg/mL Normal 232-1245 [facility] Comment on above: Order Comment: Speci men Type: BLOOD SPECIMENOrdering Facility: [facility] Address: [address] [place] [address] Performed By: #### 2 132-9, 80001-3, 3016-3 ####[facility] LABCLIA [id number] [place] [address] [place] Spine Lumbar (Routine)on Spine Lumbar (Routine) [facility] [address] [place] [address] Spine Lumbar (Routine) MR#: [id number] Acct: [id number] Name: MOLLY HIDALGO Rep #: [id number] : 1960 F 64 From: Eze Kim PCP: Dr. Roger Wilburn MD Status: REG CLI Study: Spine Lumbar (Routine) Date of Exam: 11/11/24 Exam# [id number] Ordering Dr: Kate Rivas PROCEDURE: MRI lumbar spine without IV contrast REASON FOR EXAM: Pain, radiculopathy TECHNIQUE: Multisequence multiplanar MR images of the lumbar spine were obtained without the administration of intravenous contrast. COMPARISON: 04/10/2021 FINDINGS: Vertebral body heights are within normal limits. Negative for acute fracture or marrow replacement. Moderate degenerative endplate edema from L1-L3. Posterior fusion hardware at L3-4 with posterior decompression. Mild levoscoliosis. Conus medullaris is intact and terminates at L1. Moderate paraspinal muscle atrophy. L1-2: Diffuse posterior disc bulge. Mild bilateral facet arthrosis. Mild spinal stenosis. Moderate bilateral foraminal narrowing. L2-3: Diffuse posterior disc bulge eccentric to the right. Mild bilateral facet arthrosis and ligamentum flavum hypertrophy. Moderate spinal stenosis. Severe right and moderate left foraminal narrowing. L3-4: No focal disc abnormality or spinal stenosis. No left foraminal narrowing. Right neural foramen is poorly visualized due to susceptibility artifact from fixation hardware. L4-5: Posterior disc bulge eccentric to the left with annular fissure. Mild/moderate bilateral facet arthrosis. No significant spinal stenosis, however there is mild narrowing of the left lateral recess. Severe left and mild right foraminal narrowing. L5-S1: No focal disc abnormality, spinal stenosis or foraminal narrowing. Mild bilateral facet arthrosis. MRI/Spine Lumbar (Routine) IMPRESSION: 1. Acquired mild and moderate spinal stenosis at L1-2 and L2-3 respectively. 2. Acquired multilevel foraminal narrowing, severe on the right at L2-3 and on the left at L4-5. 3. Posterior fusion/decompression at L3-4. 4. Levoscoliosis. Reading Location: [facility] CC: KIMBERLY Johnson; Dr. Roger Wilburn MD Articulation Officer: Signed Normal [facility] Cerv Spine 2 or 3 Viewson Cerv Spine 2 or 3 Views [facility] [address] [place] [address] Cerv Spine 2 or 3 Views MR#: [id number] Acct: [id number] Name: MOLLY HIDALGO Rep #: [id number] : 1960 F 63 From: Kirill pimentel MD PCP: Dr. Roger Wilburn MD Status: DEP AMB Study: Cerv Spine 2 or 3 Views Date of Exam: 10/07/24 Exam# [id number] Ordering Dr: Kate Rivas [id number] INDICATION: pain -- flex/ext EXAMINATION/TECHNIQUE: X-RAY - XR Spine Cervical 2 or 3 Views COMPARISON: Prior study dated: 09/23/2024 FINDINGS: VERTEBRAE: Preserved vertebral body height. No fracture. No spondylolisthesis. Preservation of the normal cervical lordosis. No significant facet arthropathy. No evidence of instability on flexion and extension. DISCS: Loss of the disc space at C4-C5. Disc space narrowing otherwise seen throughout with endplate osteophytes. NECK SOFT TISSUES: No prevertebral soft tissue widening. LUNG APICES: Clear. RAD/Cerv Spine 2 or 3 Views IMPRESSION: Moderate degenerative changes. No evidence of instability. Electronically Signed: Kirill Gonzales MD at 22:02 EST , CC: KIMBERLY Johnson; Dr. Roger Wilburn MD Articulation Officer: Signed Normal [facility] L/S Spine Min 4 Viewson 09-19-2024 L/S Spine Min 4 Views [facility] [address] [place] [address] L/S Spine Min 4 Views MR#: [id number] Acct: [id number] Name: MOLLY HIDALGO Rep #: [id number] : 1960 F 63 From: Kirill pimentel MD PCP: Dr. Roger Wilburn MD Status: DEP AMB Study: L/S Spine Min 4 Views Date of Exam: 10/07/24 Exam# [id number] Ordering Dr: Kate Rivas [id number] INDICATION: pain -- please do upright AP, LAT, flex/ext EXAMINATION/TECHNIQUE: X-RAY - XR Spine Lumbar Min 4 Views COMPARISON: Prior study dated: 10/09/2019 FINDINGS: VERTEBRAE: Posterior fusion hardware with disc spacer at L3-L4. Hardware is intact with unchanged positioning of the disc spacer seen anteriorly. Preserved vertebral body height. No fracture. No spondylolisthesis. Preservation of the normal lumbar lordosis. Diffuse facet arthropathy. No evidence of instability on flexion and extension. DISCS: Disc space narrowing throughout the remainder of the lumbar spine, particularly L1-L2 and L2-L3 with endplate osteophytes. INCLUDED ABDOMEN: Included bowel gas pattern is non-obstructive. RAD/L/S Spine Min 4 Views IMPRESSION: No evidence of lumbar spinal fracture or spondylolisthesis. Intact spinal hardware. Degenerative changes which are greatest at the upper lumbar spine, mildly progressed from prior. Electronically Signed: Kirill Gonzales MD at 22:01 EST , CC: KIMBERLY Johnson; Dr. Roger Wilburn MD Articulation Officer: Signed Normal [facility] Orthopedic Visit Reporton Orthopedic Visit Report [facility] [address] [place] [address] OFFICE VISIT Date of Service: 10/07/24 MR#: [id number] Acct: [id number] Name: MOLLY HIDALGO Rep #: [id number] : 1960 Provider: KIMBERLY Johnson Age/Sex: 63/F Location: [facility] Status: Signed Intake Vital Signs 10/07/24 13:02 Height 5 ft Weight: 133 lb BMI 25.9 Intake Visit Reasons: LUMBAR SPINE Accompanied by: Self Is patient in pain?: Yes Pain scale (1-10): 4 Allergies atorvastatin (From Lipitor) Allergy (Severe, Verified 10/07/24 13:03) Other cat dander Allergy (Verified 10/07/24 13:03) Other Iodinated Contrast Media (Iodinated Contrast- Oral and IV Dye) Allergy (Verified 10/07/24 13:03) Angioedema Medications ???Medication ???Instructions ???Recorded ???Confirmed ???Type duloxetine 60 mg capsule,delayed 60 mg PO DAILY 12/11/18 10/07/24 History release (Cymbalta) pravastatin 10 mg tablet 10 mg PO DAILY 12/11/18 10/07/24 History pregabalin 100 mg capsule (Lyrica) 100 mg PO BID 12/11/18 10/07/24 History bupropion HCl 300 mg 24 hr tablet, 300 mg PO QDAY 10/07/24 10/07/24 History extended release lisinopril 10 mg tablet 5 mg PO QDAY 10/07/24 10/07/24 History omeprazole 40 mg capsule,delayed 40 mg PO QDAY 10/07/24 10/07/24 History release tramadol 50 mg tablet 50 mg PO BID 10/07/24 10/07/24 History PFSH Medical History Acid reflux Depression Hypertension High cholesterol Surgical History H/O: hysterectomy Previous back surgery Family History Father Hypertension Mother Hypertension Social History Smoking Status: Current every day smoker Tobacco: How many years used: 43 second hand exposure: No quit status: has quit before HPI LUMBAR SPINE Details: This documentation accurately reflects the service provided and the decisions made by me, KIMBERLY Johnson 10/07/24 6548. Part of today???s visit was documented by Agatha Luna ATC, acting as scribe. MOLLY HIDALGO is a 63 year old F here today for lumbar spine pain. Patient states the back has been bothering her for at least 15 years. Patient had a spinal fusion done in 2017 and she thinks it was done with [facility]. She says in 2017 before her lumbar fusion she was having similar symptoms to what she currently has. The surgery did give her about 3 to 9 months of relief before her symptoms returned. She states the back pain has gotten worse since the surgery. She denies any recent falls, injuries/accidents that caused the back pain to bother her. Patient describes the pain over the right lumbar spine and her right leg and foot goes numb. This pain starts on the lower lumbar middle back and then extends to the right side to her right hip and down her lateral right leg to her knee. Denies any symptoms beyond the knee. Patient states she does get tingling and radiating pain into the right leg but it does not happen all the time. Says that she can walk about a block and a half before she needs to sit down to relieve the back pain. Says that she does rely on a shopping cart when grocery shopping to help relieve her symptoms. She can walk farther with the shopping cart than without it. Patient sees Dr. Hall and last had a lumbar spine injection about 2 months ago but did not get any relief from that. She has been seeing Dr. Royce Ibanez for the last 5 years and says that initially the injections did give her several months of relief but now she only gets a couple hours of relief. Patient denies any recent physical therapy. Patient states she also has pain in her cervical spine that goes down the base of the neck into the top of her right shoulder. Patient denies any cervical spine surgery in the past. She denies any numbness/tingling down her arms. Patient has a prescription of Tramadol for Dr. Hall and she states it helps her lumbar spine but not cervical. She applies heat. Last did physical therapy several years ago but says that it does not work for her and worsens her pain. Her biggest complaint today was her lumbar back pain. Denies any recent balance changes or dexterity issues. History of prediabetes, she does not know her last A1c. History of potentially COPD, history of smoking. No heart issues no blood thinners. Ortho Exam General General: Yes no acute distress (patient did seem slightly restless during the exam with some akathisia ) Neurologic: Yes alert and Yes oriented x3 Spine SPINE TESTING CERVICAL THORACIC LUMBAR Musculoskeletal Strength 0=absent - 5=normal Details: Neurological exam of the lower and upper extremities shows 5x5 pow (more content not included)... Normal [facility] Cerv Spine 2 or 3 Viewson Cerv Spine 2 or 3 Views [facility] [address] [place], [place] [id number] Cerv Spine 2 or 3 Views MR#: [id number] Acct: [id number] Name: MOLLY HIDLAGO Rep #: [id number] : 1960 F 63 From: Daniel Givens MD PCP: Dr. Roger Wilburn MD Status: REG CLI Study: Cerv Spine 2 or 3 Views Date of Exam: 09/23/24 Exam# [id number] Ordering Dr: Omer Hall MD [id number] STUDY: X-RAY - CERVICAL SPINE REASON FOR EXAM: Female, 63 years old. NECK PAIN TECHNIQUE: 2 view(s) of the cervical spine were obtained. COMPARISON: None FINDINGS: Normal anterior atlantoaxial articulation. Normal odontoid process. There is anatomic alignment of the C-spine from C1 to C3. 3 to 4 mm of posterior subluxation of C4 on C3. C4 and C5 with interbody fusion. There is 2 to 3 mm of anterior subluxation of C6 on C5. There is anatomic alignment from C6 to T1. There is straightening of the normal cervical lordosis, likely positional or due to pain. Normal vertebral bodies and endplates. There is multi-level degenerative disc disease with multilevel disc space narrowing. There is a normal relationship between C7 and T1 The soft tissue structures are unremarkable. RAD/Cerv Spine 2 or 3 Views IMPRESSION: Multilevel degenerative changes with chronic subluxations at no acute fracture or suspicious osseous lesion Electronically Signed: Jose Givens MD at 15:29 EST , CC: Dr. Omer Hall MD; Dr. Roger Wilburn MD Articulation Officer: Signed Normal [facility] 06-07-2024 [facility] Telephone (FAMPWS) -------- MOLLY HIDALGO ([id number]) 1960 F Date Time Provider Department 06/07/24 JESSICA PALENCIA During your visit today, we recorded the following information about you: Jessica Palencia APRN.KATHLEEN 06/07/2024 6:52 AM Signed White count is some elevated as well as her uric acid level. Will also treat her finger swelling with some gout medication to cover possible gout- I have sent to pharmacy. Recheck labs in one month. May also continue antibiotic. The rest of her blood work is in acceptable ranges. Continue all other current medications. Jessica Palencia APRN.Roberta Kaur LPN 06/07/2024 8:23 AM Signed Phoned patient left detailed message with results, notes from Jessica Palencia CONTROL CLERK, rx sent to [facility] pharmacy on patient voicemail. Allergies As of Date: 06/07/2024 Noted Allergy Reaction IODINE (CONTRAST DYE) 01/17/2012 7 - Swelling Comments: PT HAD A REACTION OF SWELLING IN THROAT,TROUBLE BREATHING 24 HRS AFTER INJECTION OF IV DYE FOR A CT UROGRAM. KK LIPITOR (ATORVASTATIN CALCIUM) 14 - Other: See Comments Comments: Skin turned yellow Date Reviewed: 06/05/2024 Reviewed by: Trista Espinosa LPN - Fully Assessed Reason for Visit: Results [95] Primary Visit Diagnosis:Pain of right thumb [M79.644] Order(s):colchicine 0.6 mg tabletTake 2 tabs by mouth, followed by 1 tab one hour later for gout flare. May repeat in 1 week.Disp: 6 tabletRfl: 0 URIC ACID [SQURIC] Order #: [id number] FUTURE COMPLETE BLOOD COUNT AND DIFFERENTIAL [SQCBCDIF] Order #: [id number] FUTURE Prescriptions as of 06/07/2024 - colchicine 0.6 mg tablet Take 2 tabs by mouth, followed by 1 tab one hour later for gout flare. May repeat in 1 week. - pregabalin (LYRICA) 100 mg capsule Take 1 capsule by mouth two times a day for 90 days. Take one capsule three times a day - cephALEXin (KEFLEX) 500 mg capsule Take 1 capsule by mouth three times a day for 5 days. - metFORMIN (GLUCOPHAGE) 500 mg tablet Take 1 tablet by mouth two times a day with meals. . - DULoxetine (CYMBALTA) 60 mg capsule Take 1 capsule by mouth once daily. patient assistance - buPROPion XL (WELLBUTRIN XL) 300 mg 24 hr tablet Take 1 tablet by mouth once daily. - rosuvastatin (CRESTOR) 20 mg tablet Take 1 tablet by mouth daily at bedtime. - budesonide-formoterol (SYMBICORT) 80-4.5 mcg/actuation inhaler Inhale 2 Puffs as instructed two times a day. - albuterol HFA (VENTOLIN HFA) 90 mcg/actuation inhaler Inhale 2 Puffs as instructed every 4 hours as needed for wheezing/shortness of breath. - lisinopril (ZESTRIL) 10 mg tablet Take 0.5 tablets by mouth once daily. - omeprazole (PRILOSEC) 40 mg capsule Take 1 capsule by mouth once daily. - nitroglycerin sublingual (NITROSTAT) 0.4 mg SL tablet Dissolve 1 tablet under the tongue every 5 minutes as needed for chest pain. - traMADol (ULTRAM) 50 mg tablet Take 50 mg by mouth twice daily. - Cholecalciferol, Vitamin D3, 2,000 unit cap Take 1 tablet by mouth once daily. Meds Comments as of 06/29/2012: Problem List As Of Date 06/07/2024 Noted Resolved Pure hypercholesterolemia [E78.00] 06/09/2005 08/17/2018 ESOPHAGEAL REFLUX [K21.9] 06/09/2005 Other and unspecified alcohol dependence, unspe* 03/15/2023 PMH - PAST MEDICAL HISTORY OF 08/17/2018 CHEST PAIN ANTERIOR CHEST WALL [R07.1] 02/09/2006 08/17/2018 TOBACCO USE DISORDER [F17.200] 02/09/2006 BULIMIA NERVOSA [F50.2] 02/09/2006 ADJUSTMENT DISORDER WITH DEPRESSED MOOD [F43.21]02/03/2009 Diaphragmatic Hernia without Mention of Obstruc*07/08/2009 Bulimia [F50.2] 07/08/2009 08/17/2018 Acute gastritis without mention of hemorrhage [*07/08/2009 08/17/2018 Hypertension [I10] 06/23/2011 Kidney stones [N20.0] 01/10/2012 08/17/2018 Right flank pain [R10.9] 01/10/2012 Hypertriglyceridemia [E78.1] 08/31/2012 08/17/2018 OCD (obsessive compulsive disorder) [F42.9] 12/25/2013 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] 12/25/2013 Nephrolithiasis [N20.0] 12/25/2013 Fibromyalgia [M79.7] 05/14/2016 Alcohol dependence (HCC) [F10.20] 08/17/2016 03/15/2023 Spinal stenosis, lumbar region with neurogenic *01/10/2018 Spondylolisthesis of lumbar region [M43.16] 01/10/2018 Lumbar stenosis with neurogenic claudication [M*02/22/2018 Acute postoperative pain [G89.18] 02/23/2018 Hyperlipidemia, mixed [E78.2] 08/17/2018 Depression [F32.A] History of alcohol dependence (HCC) [F10.21] 03/15/2023 Iron deficiency anemia [D50.9] COPD (chronic obstructive pulmonary disease) (H*02/16/2023 Prescriptions ordered this encounter Disp Refills Start End COLCHICINE 0.6 MG TABLET 6 ta* 0 06/07/2024 Sig: Take 2 tabs by mouth, followed by 1 tab one hour later for gout flare. May repeat in 1 week. Encounter Status:Closed by ROBERTA DIALLO on 06/07/24 Normal [facility] CBC W Auto Differential pane l (Bld)on 06-05-2024 Basophils (Bld) [#/Vol] 0.12 10*3/uL High <0.11 [facility] Comment on above: Order Comment: Speci men Type: BLOOD SPECIMEN Ordering Facility: [facility] Address: [address] [place] [address] Performed By: #### 5 7021-8 #### [facility] CLIA [id number] [address] [place] [address] [place] Basophils/100 WBC (Bld) 0.8 % Normal [facility] Comment on above: Order Comment: Speci men Type: BLOOD SPECIMEN Ordering Facility: [facility] Address: [address] [place] [address] Performed By: #### 5 7021-8 #### [facility] CLIA [id number] [address] [place] [address] [place] Differential cell count method Nom (Bld) Auto Normal [facility] Comment on above: Order Comment: Speci men Type: BLOOD SPECIMEN Ordering Facility: [facility] Address: [address] [place] [address] Performed By: #### 5 7021-8 #### [facility] CLIA [id number] [address] [place] [address] [place] Eosinophils (Bld) [#/Vol] 0.94 10*3/uL High <0.46 [facility] Comment on above: Order Comment: Speci men Type: BLOOD SPECIMEN Ordering Facility: [facility] Address: [address] [place] [address] Performed By: #### 5 7021-8 #### [facility] CLIA [id number] [address] [place] [address] [place] Eosinophils/100 WBC (Bld) 6.6 % Normal [facility] Comment on above: Order Comment: Speci men Type: BLOOD SPECIMEN Ordering Facility: [facility] Address: [address] [place] [address] Performed By: #### 5 7021-8 #### [facility] CLIA [id number] [address] [place] [address] [place] Erythrocyte distribution width (RBC) [Ratio] 12.5 % Normal 11.5-15.0 [facility] Comment on above: Order Comment: Speci men Type: BLOOD SPECIMEN Ordering Facility: [facility] Address: [address] [place] [address] Performed By: #### 5 7021-8 #### [facility] CLIA [id number] [address] [place] [address] [place] Hematocrit (Bld) [Volume fraction] 43.5 % Normal 36.0-46.0 [facility] Comment on above: Order Comment: Speci men Type: BLOOD SPECIMEN Ordering Facility: [facility] Address: [address] [place] [address] Performed By: #### 5 7021-8 #### [facility] CLIA [id number] [address] [place] [address] [place] Hemoglobin (Bld) [Mass/Vol] 13.7 g/dL Normal 11.5-15.5 [facility] Comment on above: Order Comment: Speci men Type: BLOOD SPECIMEN Ordering Facility: [facility] Address: [address] [place] [address] Performed By: #### 5 7021-8 #### [facility] CLIA [id number] [address] [place] [address] [place] Immature granulocytes (Bld) [#/Vol] 0.09 10*3/uL Normal <0.10 [facility] Comment on above: Order Comment: Speci men Type: BLOOD SPECIMEN Ordering Facility: [facility] Address: [address] [place] [address] Performed By: #### 5 7021-8 #### [facility] CLIA [id number] [address] [place] [address] [place] Immature granulocytes/100 WBC (Bld) 0.6 % Normal [facility] Comment on above: Order Comment: Speci men Type: BLOOD SPECIMEN Ordering Facility: [facility] Address: [address] [place] [address] Performed By: #### 5 7021-8 #### [facility] CLIA [id number] [address] [place] [address] [place] Lymphocytes (Bld) [#/Vol] 3.88 10*3/uL Normal 1.00-4.00 [facility] Comment on above: Order Comment: Speci men Type: BLOOD SPECIMEN Ordering Facility: [facility] Address: [address] [place] [address] Performed By: #### 5 7021-8 #### [facility] CLIA [id number] [address] [place] [address] [place] Lymphocytes/100 WBC (Bld) 27.2 % Normal [facility] Comment on above: Order Comment: Speci men Type: BLOOD SPECIMEN Ordering Facility: [facility] Address: [address] [place] [address] Performed By: #### 5 7021-8 #### [facility] CLIA [id number] [address] [place] [address] [place] MCH (RBC) [Entitic mass] 30.0 pg Normal 26.0-34.0 [facility] Comment on above: Order Comment: Speci men Type: BLOOD SPECIMEN Ordering Facility: [facility] Address: [address] [place] [address] Performed By: #### 5 7021-8 #### [facility] CLIA [id number] [address] [place] [address] [place] MCHC (RBC) [Mass/Vol] 31.5 g/dL Normal 30.5-36.0 [facility] Comment on above: Order Comment: Speci men Type: BLOOD SPECIMEN Ordering Facility: [facility] Address: [address] [place] [address] Performed By: #### 5 7021-8 #### [facility] CLIA [id number] [address] [place] [address] [place] MCV (RBC) [Entitic vol] 95.4 fL Normal 80.0-100.0 [facility] Comment on above: Order Comment: Speci men Type: BLOOD SPECIMEN Ordering Facility: [facility] Address: [address] [place] [address] Performed By: #### 5 7021-8 #### [facility] CLIA [id number] [address] [id number] [address] [place] Monocytes (Bld) [#/Vol] 1.13 10*3/uL High <0.87 [facility] Comment on above: Order Comment: Speci men Type: BLOOD SPECIMEN Ordering Facility: [facility] Address: [address] [place] [address] Performed By: #### 5 7021-8 #### [facility] CLIA [id number] [address] [place] [address] [place] Monocytes/100 WBC (Bld) 7.9 % Normal [facility] Comment on above: Order Comment: Speci men Type: BLOOD SPECIMEN Ordering Facility: [facility] Address: [address] [place] [address] Performed By: #### 5 7021-8 #### [facility] CLIA [id number] [address] [place] [address] [place] Neutrophils (Bld) [#/Vol] 8.13 10*3/uL High 1.45-7.50 [facility] Comment on above: Order Comment: Speci men Type: BLOOD SPECIMEN Ordering Facility: [facility] Address: [address] [place] [address] Performed By: #### 5 7021-8 #### [facility] CLIA [id number] [address] [place] [address] [place] Neutrophils/100 WBC (Bld) 56.9 % Normal [facility] Comment on above: Order Comment: Speci men Type: BLOOD SPECIMEN Ordering Facility: [facility] Address: [address] [place] [address] Performed By: #### 5 7021-8 #### [facility] CLIA [id number] [address] [place] [address] [place] Nucleated RBC (Bld) [#/Vol] 10*3/uL Normal <0.01 [facility] Comment on above: Order Comment: Speci men Type: BLOOD SPECIMEN Ordering Facility: [facility] Address: [address] [place] [address] Performed By: #### 5 7021-8 #### [facility] CLIA [id number] [address] [place] [address] [place] Nucleated RBC/100 WBC (Bld) [Ratio] 0.0 /100 WBC Normal [facility] Comment on above: Order Comment: Speci men Type: BLOOD SPECIMEN Ordering Facility: [facility] Address: [address] [place] [address] Performed By: #### 5 7021-8 #### [facility] CLIA [id number] [address] [place] [address] [place] Platelet mean volume (Bld) [Entitic vol] 9.8 fL Normal 9.0-12.7 [facility] Comment on above: Order Comment: Speci men Type: BLOOD SPECIMEN Ordering Facility: [facility] Address: [address] [place] [address] Performed By: #### 5 7021-8 #### [facility] CLIA [id number] [address] [place] [address] [place] Platelets (Bld) [#/Vol] 323 10*3/uL Normal 150-400 [facility] Comment on above: Order Comment: Speci men Type: BLOOD SPECIMEN Ordering Facility: [facility] Address: [address] [place] [address] Performed By: #### 5 7021-8 #### [facility] CLIA [id number] [address] [place] [address] [place] RBC (Bld) [#/Vol] 4.56 10*6/uL Normal 3.90-5.20 [place] Comment on above: Order Comment: Speci men Type: BLOOD SPECIMEN Ordering Facility: [facility] Address: [address] [place] [address] Performed By: #### 5 7021-8 #### [facility] CLIA [id number] [address] [place] [address] [place] WBC (Bld) [#/Vol] 14.29 10*3/uL High 3.70-11.00 [facility] Comment on above: Order Comment: Speci men Type: BLOOD SPECIMEN Ordering Facility: [facility] Address: [address] [place] [address] Performed By: #### 5 7021-8 #### [facility] CLIA [id number] [address] [place] [address] [place] CNOVon 06-05-2024 CNOV Office Visit (FAMPWS ) -------- MOLLY HIDALGO ([id number]) 1960 F Date Time Provider Department 06/05/24 12:40 PM JESSICA PALENCIA During your visit today, we recorded the following information about you: Pulse Respiration Blood pressure Weight 82/minute 18/minute 116/82 59.9 kg Height 1.515 m Jessica Palencia APRN.COLD ROLLING SUPERVISOR 06/05/2024 2:37 PM Signed 06/05/2024 Patient presents with: Wellness Visit SUBJECTIVE: This is a 63 year old that is here today for Above Complaints. Since last office visit has been in good health without ER visits or hospitalizations. HTN: Patient is compliant with meds Yes Monitors bp at home: No. Denies side effects: Yes. Chest pain: No. Dyspnea: No. Edema: No. Palpitations: No. Syncope: No. Headache: No. Dizziness: No. Prediabetes: taking Metformin as prescribed without side effects. Not following a low carbohydrate diet but has started trying to get back on track. Denies visual changes, polyuria or polydipsia GERD: taking omeprazole as prescribe without side effects. Denies breakthrough symptoms Depression: taking Cymbalta and Wellbutrin as prescribed without side effects. Not attending counseling. Denies SI, HI or insomnia HYPERLIPIDEMIA: Patient is taking medications: Yes. Patient is watching diet: No. Patient denies myalgias: Yes. Patient denies gi upset: Yes Followed up with cardiology on 03/11/2024 for coronary calcification seen on CT scan. Stress test ordered but she has not scheduled as of yet COPD: admits not good about using her Symbicort. Rare use of albuterol inhaler. Admits to some SOB with exertions. Right thumb started hurting yesterday. Hard time bending it. Denies past/present injury or red streaking Follows with pain management for hx of chronic back pain PAST MEDICAL HISTORY Diagnosis Date Abnormal glandular Papanicolaou smear of cervix Abn. Pap smear (cervix) Bulimia Chronic lower back pain Dr. Hall Colon polyps hyperplastic polyp 2014 COPD (chronic obstructive pulmonary disease) (HCC) 02/16/2023 Depression 1980s Diaphragmatic hernia without mention of obstruction or gangrene Esophageal reflux 06/09/2005 Family history of coronary artery disease Fatty liver 10/19/2023 Fibromyalgia History of alcohol dependence ([facility]) History of drug abuse ([facility]) marijuana, cocaine, acid, methamphetamines, speed. Sober since age 20s Hypertension Iron deficiency anemia Lumbar stenosis with neurogenic claudication Mononucleosis Nephrolithiasis PAD (peripheral artery disease) ([facility]) Prediabetes Pure hypercholesterolemia 06/09/2005 Tobacco use ALLERGIES Iodine [Contrast Dye] and Lipitor [Atorvastatin Calcium] MEDICATIONS Current Outpatient Medications Medication Sig metFORMIN (GLUCOPHAGE) 500 mg tablet Take 1 tablet by mouth two times a day with meals. . DULoxetine (CYMBALTA) 60 mg capsule Take 1 capsule by mouth once daily. patient assistance buPROPion XL (WELLBUTRIN XL) 300 mg 24 hr tablet Take 1 tablet by mouth once daily. rosuvastatin (CRESTOR) 20 mg tablet Take 1 tablet by mouth daily at bedtime. budesonide-formoterol (SYMBICORT) 80-4.5 mcg/actuation inhaler Inhale 2 Puffs as instructed two times a day. albuterol HFA (VENTOLIN HFA) 90 mcg/actuation inhaler Inhale 2 Puffs as instructed every 4 hours as needed for wheezing/shortness of breath. lisinopril (ZESTRIL) 10 mg tablet Take 0.5 tablets by mouth once daily. omeprazole (PRILOSEC) 40 mg capsule Take 1 capsule by mouth once daily. nitroglycerin sublingual (NITROSTAT) 0.4 mg SL tablet Dissolve 1 tablet under the tongue every 5 minutes as needed for chest pain. pregabalin (LYRICA) 100 mg capsule Take 1 capsule by mouth twice daily for 90 days. traMADol (ULTRAM) 50 mg tablet Take 50 mg by mouth twice daily. Cholecalciferol, Vitamin D3, 2,000 unit cap Take 1 tablet by mouth once daily. No current facility-administered medications for this visit. Medications and allergies reviewed by this provider. SOCIAL HISTORY Social History Tobacco Use Smoking status: Every Day Current packs/day: 0.00 Types: Cigarettes Start date: 12/09/1967 Last attempt to quit: 12/08/2017 Years since quittin.4 Smokeless tobacco: Never Tobacco comments: Reports 7 cigarettes daily as of 04/09/2024 Vaping Use Vaping status: Never Used Substance Use Topics Alcohol use: Yes Comment: socially Drug use: No Comment: none in many yrs REVIEW OF SYSTEMS GENERAL: No weight loss, malaise or fevers HEENT: Negative for frequent or significant headaches, No changes in hearing or vision, no nose bleeds or other nasal problems NECK: Negative for lumps, goiter, pain and significant neck swelling RESPIRATORY: Negative for cough, hemoptysis, wheezing, COPD, dyspnea CARDIOVASCULAR: Negative for chest pain, leg swelling, hypertension, CHF or palpitations (more content not included)... Normal [facility] CNPNon 06-05-2024 KATHLEENN Telephone (PRECIOUS) -------- MOLLY HIDALGO ([id number]) 1960 F Date Time Provider Department 06/05/24 JESSICA PALENCIA During your visit today, we recorded the following information about you: Trista Espinosa LPN 06/05/2024 3:09 PM Signed ----- Message from Jessica Palencia APRN.COLD ROLLING SUPERVISOR sent at 06/05/2024 2:24 PM EDT ----- Xray shows some mild arthritis. Jessica Palencia, DESTINATION SIGN REPAIRER.Trista Bowman LPN 06/05/2024 3:33 PM Signed Telephoned patient, message left to call office back for update. When patient calls back please assist with scheduling 6 month follow up as well. MELANIA Tran Stephanie, RN 06/06/2024 9:29 AM Signed Patient notified of results. Patient verbalizes understanding. Patient scheduled for 6 month follow up on 12/03/2024 Libertad Coleman RN Allergies As of Date: 06/05/2024 Noted Allergy Reaction IODINE (CONTRAST DYE) 01/17/2012 7 - Swelling Comments: PT HAD A REACTION OF SWELLING IN THROAT,TROUBLE BREATHING 24 HRS AFTER INJECTION OF IV DYE FOR A CT UROGRAM. KK LIPITOR (ATORVASTATIN CALCIUM) 14 - Other: See Comments Comments: Skin turned yellow Date Reviewed: 06/05/2024 Reviewed by: Trista Espinosa LPN - Fully Assessed Reason for Visit: Results [95] Prescriptions as of 06/06/2024 - pregabalin (LYRICA) 100 mg capsule Take 1 capsule by mouth two times a day for 90 days. Take one capsule three times a day - cephALEXin (KEFLEX) 500 mg capsule Take 1 capsule by mouth three times a day for 5 days. - metFORMIN (GLUCOPHAGE) 500 mg tablet Take 1 tablet by mouth two times a day with meals. . - DULoxetine (CYMBALTA) 60 mg capsule Take 1 capsule by mouth once daily. patient assistance - buPROPion XL (WELLBUTRIN XL) 300 mg 24 hr tablet Take 1 tablet by mouth once daily. - rosuvastatin (CRESTOR) 20 mg tablet Take 1 tablet by mouth daily at bedtime. - budesonide-formoterol (SYMBICORT) 80-4.5 mcg/actuation inhaler Inhale 2 Puffs as instructed two times a day. - albuterol HFA (VENTOLIN HFA) 90 mcg/actuation inhaler Inhale 2 Puffs as instructed every 4 hours as needed for wheezing/shortness of breath. - lisinopril (ZESTRIL) 10 mg tablet Take 0.5 tablets by mouth once daily. - omeprazole (PRILOSEC) 40 mg capsule Take 1 capsule by mouth once daily. - nitroglycerin sublingual (NITROSTAT) 0.4 mg SL tablet Dissolve 1 tablet under the tongue every 5 minutes as needed for chest pain. - traMADol (ULTRAM) 50 mg tablet Take 50 mg by mouth twice daily. - Cholecalciferol, Vitamin D3, 2,000 unit cap Take 1 tablet by mouth once daily. Meds Comments as of 06/29/2012: Problem List As Of Date 06/05/2024 Noted Resolved Pure hypercholesterolemia [E78.00] 06/09/2005 08/17/2018 ESOPHAGEAL REFLUX [K21.9] 06/09/2005 Other and unspecified alcohol dependence, unspe* 03/15/2023 PMH - PAST MEDICAL HISTORY OF 08/17/2018 CHEST PAIN ANTERIOR CHEST WALL [R07.1] 02/09/2006 08/17/2018 TOBACCO USE DISORDER [F17.200] 02/09/2006 BULIMIA NERVOSA [F50.2] 02/09/2006 ADJUSTMENT DISORDER WITH DEPRESSED MOOD [F43.21]02/03/2009 Diaphragmatic Hernia without Mention of Obstruc*07/08/2009 Bulimia [F50.2] 07/08/2009 08/17/2018 Acute gastritis without mention of hemorrhage [*07/08/2009 08/17/2018 Hypertension [I10] 06/23/2011 Kidney stones [N20.0] 01/10/2012 08/17/2018 Right flank pain [R10.9] 01/10/2012 Hypertriglyceridemia [E78.1] 08/31/2012 08/17/2018 OCD (obsessive compulsive disorder) [F42.9] 12/25/2013 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] 12/25/2013 Nephrolithiasis [N20.0] 12/25/2013 Fibromyalgia [M79.7] 05/14/2016 Alcohol dependence (HCC) [F10.20] 08/17/2016 03/15/2023 Spinal stenosis, lumbar region with neurogenic *01/10/2018 Spondylolisthesis of lumbar region [M43.16] 01/10/2018 Lumbar stenosis with neurogenic claudication [M*02/22/2018 Acute postoperative pain [G89.18] 02/23/2018 Hyperlipidemia, mixed [E78.2] 08/17/2018 Depression [F32.A] History of alcohol dependence (HCC) [F10.21] 03/15/2023 Iron deficiency anemia [D50.9] COPD (chronic obstructive pulmonary disease) (H*02/16/2023 Encounter Status:Closed by LIBERTAD COLEMAN on 06/06/24 Normal [facility] Comprehensive metabolic 2000 panelon 06-05-2024 Albumin [Mass/Vol] 4.4 g/dL Normal 3.9-4.9 [facility] Comment on above: Order Comment: Speci men Type: BLOOD SPECIMENOrdering Facility: [facility] Address: [address] [place] [address] Performed By: #### 2 4331-1, 21063-2, 3083- ####[facility] [id number] [place] [address] [place] ALP [Catalytic activity/Vol] 71 U/L Normal 34-123 [facility] Comment on above: Order Comment: Speci men Type: BLOOD SPECIMENOrdering Facility: [facility] Address: [address] [place] [address] Performed By: #### 2 4331-1, 56043-1, 3083- ####[facility] [id number] [place] [address] [place] ALT [Catalytic activity/Vol] 21 U/L Normal 7-38 [facility] Comment on above: Order Comment: Speci men Type: BLOOD SPECIMENOrdering Facility: [facility] Address: [address] [place] [address] Performed By: #### 2 4331-1, 26863-4, 3083- ####[facility] [id number] [place] [id number] [place] Anion gap [Moles/Vol] 14 mmol/L Normal 8-15 [facility] Comment on above: Order Comment: Speci men Type: BLOOD SPECIMENOrdering Facility: [facility] Address: [address] [place] [address] Performed By: #### 2 4331-1, 65419-4, 3083-09 ####[facility] [id number] [address] [address] [place] AST [Catalytic activity/Vol] 22 U/L Normal 13-35 [facility] Comment on above: Order Comment: Speci men Type: BLOOD SPECIMENOrdering Facility: [facility] Address: [address] [place] [address] Performed By: #### 2 4331-1, 13418-1, 3083-09 ####[facility] [id number] [place] [address] [place] Bilirubin [Mass/Vol] 0.2 mg/dL Normal 0.2-1.3 [facility] Comment on above: Order Comment: Speci men Type: BLOOD SPECIMENOrdering Facility: [facility] Address: [address] [place] [address] Performed By: #### 2 4331-1, 84591-6, 3083-09 ####[facility] [id number] [place] [address] [place] Calcium [Mass/Vol] 9.6 mg/dL Normal 8.5-10.2 [facility] Comment on above: Order Comment: Speci men Type: BLOOD SPECIMENOrdering Facility: [facility] Address: [address] [place], [place] [address] Performed By: #### 2 4331-1, 86676-2, 3083-09 ####[facility] [id number] [place] [id number] [place] Chloride [Moles/Vol] 104 mmol/L Normal 98-107 [facility] Comment on above: Order Comment: Speci men Type: BLOOD SPECIMENOrdering Facility: [facility] Address: [address] [place], [place] [address] Performed By: #### 2 4331-1, , 3083-09 ####[facility] [id number] [place] [id number] [place] CO2 [Moles/Vol] 21 mmol/L Low 22-30 [facility] Comment on above: Order Comment: Speci men Type: BLOOD SPECIMENOrdering Facility: [facility] Address: [address] [place] [address] Performed By: #### 2 4331-1, , 3083-09 ####[facility] [id number] [address] [address] [place] Creatinine [Mass/Vol] 0.85 mg/dL Normal 0.58-0.96 [facility] Comment on above: Order Comment: Speci men Type: BLOOD SPECIMENOrdering Facility: [facility] Address: [address] [place] [address] Performed By: #### 2 433-1, , 3083-09 ####[facility] [id number] [place] [address] [place] Creatinine and Glomerular filtration rate.predicted panel (S/P/Bld) 77 mL/min/1.73m??? Normal >=60 [facility] Comment on above: Order Comment: Speci men Type: BLOOD SPECIMENOrdering Facility: [facility] Address: [address] [place] [address] Result Comment: Fanny mated Glomerular Filtration Rate (eGFR) is calculated using the 2020 CKD-EPI creatinine equation. This equation utilizes serum creatinine, sex, and age as parameters. The creatinine assay has traceable calibration to isotope dilution-mass spectrometry. Refer to KDIGO guidelines for clinical interpretation. In patients with unstable renal function, e.g. those with acute kidney injury, the eGFR may not accurately reflect actual GFR. Performed By: #### 2 4331-1, 36032-7, 3083-09 ####[facility] [id number] [address] [address] [place] [place] Glucose [Mass/Vol] 98 mg/dL Normal 74-99 [facility] Comment on above: Order Comment: Speci men Type: BLOOD SPECIMENOrdering Facility: [facility] Address: [address] [place] [address] Result Comment: The [place] Diabetes Association (ADA) provides guidance for cutoff values for fasting glucose and random glucose. The ADA defines fasting as no caloric intake for at least 8 hours. Fasting plasma glucose results between 100 to 125 mg/dL indicate increased risk for diabetes (prediabetes). Fasting plasma glucose results greater than or equal to 126 mg/dL meet the criteria for diagnosis of diabetes. In the absence of unequivocal hyperglycemia, results should be confirmed by repeat testing. In a patient with classic symptoms of hyperglycemia or hyperglycemic crisis, random plasma glucose results greater than or equal to 200 mg/dL meet the criteria for diagnosis of diabetes. Reference: Standards of Medical Care in Diabetes 2016, [place] [employer] Association. Diabetes Care. 2016.39(Suppl 1). Performed By: #### 2 4331-1, 10129-7, 3083-09 ####[facility] LABCLIA [id number] [place] [address] [place] Potassium [Moles/Vol] 3.8 mmol/L Normal 3.7-5.1 [facility] Comment on above: Order Comment: Speci men Type: BLOOD SPECIMENOrdering Facility: [facility] Address: [address] [place] [address] Performed By: #### 2 4331-1, , 3083-09 ####[facility] LABCLIA [id number] [place] [id number] [place] Protein [Mass/Vol] 7.2 g/dL Normal 6.3-8.0 [facility] Comment on above: Order Comment: Speci men Type: BLOOD SPECIMENOrdering Facility: [facility] Address: [address] [place] [address] Performed By: #### 2 4331-1, 03791-1, 3083- ####[facility] LABCLIA [id number] [place] [address] [place] Sodium [Moles/Vol] 139 mmol/L Normal 136-144 [facility] Comment on above: Order Comment: Riddhii viraj Type: BLOOD SPECIMENOrdering Facility: [facility] Address: [address] [place] [address] Performed By: #### 2 4331-1, 01586-0, 3084-1 ####[facility] LABCLIA [id number] [place] [address] [place] Urea nitrogen [Mass/Vol] 11 mg/dL Normal 7-21 [facility] Comment on above: Order Comment: Riddhii men Type: BLOOD SPECIMENOrdering Facility: [facility] Address: [address] [place] [address] Performed By: #### 2 4331-1, 20570-0, 3084-1 ####[facility] LABIA [id number] [place] [address] [place] HbA1c (Bld)on 06-05-2024 Average glucose Estimated from glycated hemoglobin (Bld) [Mass/Vol] 120 mg/dL Normal [facility] Comment on above: Order Comment: Caio cali Type: BLOOD SPECIMENOrdering Facility: [facility] Address: [address] [place] [address] Result Comment: eAG: (Estimated average glucose) is a calculated value from HgbA1c and is admissions representative of the average blood glucose level in the last 2-3 month period. Performed By: #### 5 5454-3 ####[facility] LABCLIA [id number] [place] [address] [place] HbA1c (Bld) [Mass fraction] 5.8 % High 4.3-5.6 [facility] Comment on above: Order Comment: Caio cali Type: BLOOD SPECIMENOrdering Facility: [facility] Address: [address] [place] [address] Result Comment: [place] Diabetes Association guidelines indicate that patients with HgbA1c in the range 5.7-6.4% are at increased risk for development of diabetes, and intervention by lifestyle modification may be beneficial. HgbA1c greater or equal to 6.5% is considered diagnostic of diabetes. Performed By: #### 5 5454-3 ####[facility] LABCLIA [id number] [place] [address] [place] Lipid 1996 panelon 4 Cholesterol [Mass/Vol] 156 mg/dL Normal <200 [facility] Comment on above: Order Comment: Speci men Type: BLOOD SPECIMENOrdering Facility: [facility] Address: [address] [place] [address] Result Comment: <200 mg/dL, Desirable 200-239 mg/dL, Borderline high >239 mg/dL, High Performed By: #### 2 4331-1, 37728-9, 3083-1 ####[facility] LABIA [id number] [address] [place] Cholesterol in HDL [Mass/Vol] 53 mg/dL Normal >39 [facility] Comment on above: Order Comment: Riddhii men Type: BLOOD SPECIMENOrdering Facility: [facility] Address: [address] [place] [address] Result Comment: 40-5 9 mg/dL, Acceptable >59 mg/dL, High: Negative risk factor for coronary heart disease <40 mg/dL, Low: Positive risk factor for coronary heart disease Performed By: #### 2 4331-1, 28064-0, 3083-1 ####[facility] LABIA [id number] [address] [place] Cholesterol in LDL [Mass/Vol] 48 mg/dL Normal <100 [facility] Comment on above: Order Comment: Caio men Type: BLOOD SPECIMENOrdering Facility: [facility] Address: [address] [place] [address] Result Comment: <100 mg/dL, Optimal 100-129 mg/dL, Near optimal/above optimal 130-159 mg/dL, Borderline high 160-189 mg/dL, High >189 mg/dL, Very high Secondary prevention optimal LDL Cholesterol levels are recommended to be < 70 mg/dL Performed By: #### 2 4331-1, 89465-9, 3083- ####[facility] LABCLIA [id number] [address] [address] [place] Cholesterol in LDL/Cholesterol in HDL [Mass ratio] 0.91 {ratio} Normal <2.54 [facility] Comment on above: Order Comment: Speci men Type: BLOOD SPECIMENOrdering Facility: [facility] Address: [address] [place] [address] Result Comment: Refe rence: 1. National Cholesterol Education Program ATP III Guideline At-A-Glance Quick Desk Reference: National Heart, Lung, and Blood [place]. National Institutes of Health. 2001: NIH Publication No. 01-3305. 2. An International Atherosclerosis Society position paper: global recommendations for the management of dyslipidemia: executive summary, Atherosclerosis. 2014: 232(2):410-413. Performed By: #### 2 4331-1, 31021-9, 3083- ####[facility] LABIA [id number] [place] [address] [place] Cholesterol in VLDL [Mass/Vol] 55 mg/dL High <30 [facility] Comment on above: Order Comment: Speci men Type: BLOOD SPECIMENOrdering Facility: [facility] Address: [address] [place] [address] Performed By: #### 2 4331-1, 51181-3, 3083- ####[facility] LABIA [id number] [address] [address] [place] Cholesterol non HDL [Mass/Vol] 103 mg/dL Normal <130 [facility] Comment on above: Order Comment: Speci men Type: BLOOD SPECIMENOrdering Facility: [facility] Address: [address] [place] [address] Result Comment: <130 mg/dL, Optimal 130-159 mg/dL, Near optimal/above optimal 160-189 mg/dL, Borderline high 190-219 mg/dL, High >219 mg/dL, Very high Secondary prevention optimal non HDL Cholesterol levels are recommended to be <100 mg/dL Performed By: #### 2 4331-1, 07209-9, 3083-09 ####[facility] LABCLIA [id number] [place] [address] [place] Cholesterol.total/Chol esterol in HDL [Mass ratio] 2.94 {ratio} Normal <5.10 [facility] Comment on above: Order Comment: Speci men Type: BLOOD SPECIMENOrdering Facility: [facility] Address: [address] [place] [address] Performed By: #### 2 4331-1, , 3083-09 ####[facility] LABCLIA [id number] [place] [address] [place] FASTING TIME 15 hrs Normal [facility] Comment on above: Order Comment: Speci men Type: BLOOD SPECIMENOrdering Facility: [facility] Address: [address] [place] [address] Performed By: #### 2 4331-1, , 3083-09 ####[facility] LABCLIA [id number] [place] [address] [place] Triglyceride [Mass/Vol] 276 mg/dL High <150 [facility] Comment on above: Order Comment: Speci men Type: BLOOD SPECIMENOrdering Facility: [facility] Address: [address] [place] [address] Result Comment: <150 mg/dL, Normal 150-199 mg/dL, Borderline high 200-499 mg/dL, High >499 mg/dL, Very high Performed By: #### 2 4331-1, , 3083-09 ####[facility] LABCLIA [id number] [place] [id number] [place] Urate SerPl-ncon 4 Urate [Mass/Vol] 7.2 mg/dL High 2.5-6.6 [facility] Comment on above: Order Comment: Speci men Type: BLOOD SPECIMENOrdering Facility: [facility] Address: [address] [place] [address] Performed By: #### 2 4331-1, 85730-7, 3084-1 ####[facility] LABCLIA [id number] [facility]adh[facility] [id number] [place] XR DIGIT 3V FRONTAL/LAT/OBL RTon 06-05-2024 XR DIGIT 3V FRONTAL/LAT/OBL RT * * *Final Report* * * DATE OF EXAM: Jun 05 2024 1:53PM WOX 5319 - XR DIGIT 3V FRONTAL/LAT/OBL RT / PROCEDURE REASON: Pain of right thumb * * * * Physician Interpretation * * * * EXAMINATION: XR DIGIT 3V FRONTAL/LAT/OBL RT CLINICAL HISTORY: Right thumb pain Technique: XR DIGIT 3V FRONTAL/LAT/OBL RT -- RIGHT with 3 views on 3 images Comparison: None RESULT: No acute fracture or dislocation. Mild right first carpometacarpal joint space narrowing. IMPRESSION: No acute osseous abnormality Articulation Officer: [facility] Transcribe Date/Time: Jun 05 2024 2:05P Dictated by : TISHA WHITEHEAD MD This examination was interpreted and the report reviewed and electronically signed by: TISHA WHITEHEAD MD on Jun 05 2024 2:07PM EST [id number] Normal [facility] XR Finger - right AP and Lat eral and obliqueon 06-05-2024 IMPRESSION: No acute osseous abnormality Articulation Officer: [facility] Transcribe Date/Time: Jun 05 2024 2:05P Dictated by : TISHA WHITEHEAD MD This examination was interpreted and the report reviewed and electronically signed by: TISHA WHITEHEAD MD on Jun 05 2024 2:07PM EST DIVISION OF RADIOLOGY * * *Final Report* * * DATE OF EXAM: Jun 05 2024 1:53PM WOX 5319 - XR DIGIT 3V FRONTAL/LAT/OBL RT / PROCEDURE REASON: Pain of right thumb * * * * Physician Interpretation * * * * EXAMINATION: XR DIGIT 3V FRONTAL/LAT/OBL RT CLINICAL HISTORY: Right thumb pain Technique: XR DIGIT 3V FRONTAL/LAT/OBL RT -- RIGHT with 3 views on 3 images Comparison: None RESULT: No acute fracture or dislocation. Mild right first carpometacarpal joint space narrowing. DIVISION OF RADIOLOGY Provider, [facility] - 06/05/2024 * * *Final Report* * * DATE OF EXAM: Jun 05 2024 1:53PM WOX 5319 - XR DIGIT 3V FRONTAL/LAT/OBL RT / PROCEDURE REASON: Pain of right thumb * * * * Physician Interpretation * * * * EXAMINATION: XR DIGIT 3V FRONTAL/LAT/OBL RT CLINICAL HISTORY: Right thumb pain Technique: XR DIGIT 3V FRONTAL/LAT/OBL RT -- RIGHT with 3 views on 3 images Comparison: None RESULT: No acute fracture or dislocation. Mild right first carpometacarpal joint space narrowing. IMPRESSION IMPRESSION: No acute osseous abnormality Articulation Officer: [facility] Transcribe Date/Time: Jun 05 2024 2:05P Dictated by : TISHA WHITEHEAD MD This examination was interpreted and the report reviewed and electronically signed by: TISHA WHITEHEAD MD on Jun 05 2024 2:07PM EST [facility] Radiology Study observation (narrative) [facility] XR Finger - right AP and Lat eral and obliqueOrdered By: Cc Provider on 06-05-2024 [facility] -------- MOLLY HIDALGO ([id number]) 1960 F Date Time Provider Department 04/11/24 ALFRED WILLSLUANA During your visit today, we recorded the following information about you: Alfred Wills MD 04/11/2024 9:32 AM Signed FOLLOW UP ENDOSCOPY - RESULTS AND RECOMMENDATIONS NAME: Molly Madison [facility] NO.: [id number] : 1960 DATE: April 11, 2024 PRIMARY CARE PROVIDER: Negrito Wilburn MD Molly Hidalgo is a patient referred for screening colonoscopy. The patient is a 63 year old female referred for endoscopy. Molly notes no current colon complaints The patient notes no upper GI complaints Molly has undergone prior endoscopy. She underwent colonoscopy by Dr. Rk Galeas in 2012 which returned as a tubulovillous adenoma with high-grade dysplasia in the descending colon. Polyp was noted to be 25 mm in size. She then had a 7 mm polyp removed in 2014 which returned as a hyperplastic polyp.. She then had follow-up colonoscopy in 2018 which was unremarkable. It was recommended she have a 5-year follow-up colonoscopy. The patient is being seen by me at the request of Dr. Negrito Wilburn MD for my opinion and advice regarding follow-up for history of a tubulovillous adenoma. I performed lower endoscopy on April 09, 2024. The patient was found to have: Lower Endoscopy Impression: - Diverticulosis in the sigmoid colon. - One 6 mm polyp in the rectum, removed with a cold snare. Resected and retrieved. - The examination was otherwise normal on direct and retroflexion views. Pathology demonstrated: FINAL DIAGNOSIS Rectum, polypectomy: -Hyperplastic polyp IMPRESSION: Hyperplastic polyp, no recent suspicious polyps PLAN: INSTRUCTIONS FOLLOWING A POLYP FOUND AT COLONOSCOPY You were found to have a hyperplastic colon polyp. I recommend you undergo repeat endoscopy in 10 years. If you note bleeding, change in bowel habits, or other suspicious colon related symptoms before that time, those symptoms should be evaluated as necessary. If you have any difficulties or concerns, you should contact our office immediately. The patient is instructed to follow-up with your primary care provider I have instructed my staff to forward the above information to the patient and to the appropriate providers Diana Og LPN 04/18/2024 10:51 AM Signed Health maintenance, surgical/ medical history updated, adFreeq message sent, recall letter generated. Diana Og LPN April 18, 2024 10:51 AM Allergies As of Date: 04/11/2024 Noted Allergy Reaction IODINE (CONTRAST DYE) 01/17/2012 7 - Swelling Comments: PT HAD A REACTION OF SWELLING IN THROAT,TROUBLE BREATHING 24 HRS AFTER INJECTION OF IV DYE FOR A CT UROGRAM. KK LIPITOR (ATORVASTATIN CALCIUM) 14 - Other: See Comments Comments: Skin turned yellow Date Reviewed: 04/09/2024 Reviewed by: Keila Tineo RN - Fully Assessed Reason for Visit: Results [95] Prescriptions as of 04/18/2024 - DULoxetine (CYMBALTA) 60 mg capsule Take 1 capsule by mouth once daily. patient assistance - buPROPion XL (WELLBUTRIN XL) 300 mg 24 hr tablet Take 1 tablet by mouth once daily. - rosuvastatin (CRESTOR) 20 mg tablet Take 1 tablet by mouth daily at bedtime. - budesonide-formoterol (SYMBICORT) 80-4.5 mcg/actuation inhaler Inhale 2 Puffs as instructed two times a day. - metFORMIN (GLUCOPHAGE) 500 mg tablet Take 1 tablet by mouth two times a day with meals. . - albuterol HFA (VENTOLIN HFA) 90 mcg/actuation inhaler Inhale 2 Puffs as instructed every 4 hours as needed for wheezing/shortness of breath. - lisinopril (ZESTRIL) 10 mg tablet Take 0.5 tablets by mouth once daily. - omeprazole (PRILOSEC) 40 mg capsule Take 1 capsule by mouth once daily. - nitroglycerin sublingual (NITROSTAT) 0.4 mg SL tablet Dissolve 1 tablet under the tongue every 5 minutes as needed for chest pain. - pregabalin (LYRICA) 100 mg capsule Take 1 capsule by mouth twice daily for 90 days. - traMADol (ULTRAM) 50 mg tablet Take 50 mg by mouth twice daily. - Cholecalciferol, Vitamin D3, 2,000 unit cap Take 1 tablet by mouth once daily. Meds Comments as of 06/29/2012: Problem List As Of Date 04/11/2024 Noted Resolved Pure hypercholesterolemia [E78.00] 06/09/2005 08/17/2018 ESOPHAGEAL REFLUX [K21.9] 06/09/2005 Other and unspecified alcohol dependence, unspe* 03/15/2023 PMH - PAST MEDICAL HISTORY OF 08/17/2018 CHEST PAIN ANTERIOR CHEST WALL [R07.1] 02/09/2006 08/17/2018 TOBACCO USE DISORDER [F17.200] 02/09/2006 BULIMIA NERVOSA [F50.2] 02/09/2006 ADJUSTMENT DISORDER WITH DEPRESSED MOOD [F43.21]02/03/2009 Diaphragmatic Hernia without Mention of Obstruc*07/08/2009 Bulimia [F50.2] 07/08/2009 08/17/2018 Acute gastritis without mention of hemorrhage [*07/08/2009 08/17/2018 Hypertension [I10] 06/23/2011 Kidney stones [N20.0] (more content not included)... Normal [facility] [id number] 04-09-2024 [id number] HNO ID: [id number] Author: KEILA TINEO RN Service: ? Author Type: Registered Nurse Type: [id number] Filed: 04/09/2024 09:58 Note Text: The patient received a copy of Colonoscopy discharge instructions that contain information for how to contact the physician who performed the procedure and when to seek medical care. Normal [facility] Colonoscopyon 04-09-2024 Colonoscopy [facility] Gastrointestinal Endoscopy Patient Name: Molly Hidalgo Procedure Date: 04/09/2024 8:47 AM Date of : 1960 Admit Type: Outpatient Age: 63 Gender: Female Note Status: Finalized Procedure: Colonoscopy Indications: High risk colon cancer surveillance: Personal history of colonic polyps Providers: Alfred Wills MD Patient Profile: This is a 63 year old female. Refer to note in patient chart for documentation of history and physical. Last Colonoscopy: 5 years ago. Referring Physician: Alfred Wills MD (Referring MD), Ed Wilburn (Referring ) Medicines: Midazolam 6 mg IV, Fentanyl 100 micrograms IV, Diphenhydramine 50 mg IV Complications: No immediate complications. Requesting Provider: Procedure: Pre-Anesthesia Assessment: - Prior to the procedure, a History and Physical was performed, and patient medications and allergies were reviewed. The patient is competent. The risks and benefits of the procedure and the sedation options and risks were discussed with the patient. All questions were answered and informed consent was obtained. Patient identification and proposed procedure were verified by the physician and the nurse in the procedure room. Mental Status Examination: alert and oriented. Respiratory Examination: clear to auscultation. Prophylactic Antibiotics: The patient does not require prophylactic antibiotics. Prior Anticoagulants: The patient has taken no anticoagulant or antiplatelet agents. ASA Grade Assessment: II - A patient with mild systemic disease. After reviewing the risks and benefits, the patient was deemed in satisfactory condition to undergo the procedure. The anesthesia plan was to use moderate sedation / analgesia (conscious sedation). Immediately prior to administration of medications, the patient was re-assessed for adequacy to receive sedatives. The heart rate, respiratory rate, oxygen saturations, blood pressure, adequacy of pulmonary ventilation, and response to care were monitored throughout the procedure. The physical status of the patient was re-assessed after the procedure. After I obtained informed consent, the scope was passed under direct vision. Throughout the procedure, the patient's blood pressure, pulse, and oxygen saturations were monitored continuously. The Colonoscope was introduced through the anus and advanced to the cecum, identified by the appendiceal orifice, ileocecal valve and palpation. The colonoscopy was performed without difficulty. The patient tolerated the procedure well. The quality of the bowel preparation was good. The ileocecal valve, appendiceal orifice, and rectum were photographed. Moderate Sedation: Moderate (conscious) sedation was personally administered by the endoscopist. The following parameters were monitored: oxygen saturation, heart rate, blood pressure, and response to care. Total physician intraservice time was 32 minutes. The administration of moderate sedation was initiated at 09:07 AM. Findings: The perianal and digital rectal examinations were normal. Multiple medium-mouthed diverticula were found in the sigmoid colon. A 6 mm polyp was found in the rectum. The polyp was sessile. The polyp was removed with a cold snare. Resection and retrieval were complete. The exam was otherwise without abnormality on direct and retroflexion views. Impression: - Diverticulosis in the sigmoid colon. - One 6 mm polyp in the rectum, removed with a cold snare. Resected and retrieved. - The examination was otherwise normal on direct and retroflexion views. Recommendation: - Discharge patient to home. - Resume previous diet. - Continue present medications. - Repeat colonoscopy for surveillance based on pathology results. - Telephone my office for pathology results in 1 week. - Patient has a contact number available for emergencies. The signs and symptoms of potential delayed complications were discussed with the patient. Return to normal activities tomorrow. Written discharge instructions were provided to the patient. Procedure Code(s): --- Professional --- 13705, Colonoscopy, flexible; with removal of tumor(s), polyp(s), or other lesion(s) by snare technique G0500, Moderate sedation services provided by the same physician or other qualified health eye care professional performing a gastrointestinal endoscopic service that sedation supports, requiring the presence of an independent trained observer to assist in the monitoring of the patient's level of consciousness and physiological status; initial 15 minutes of intra-service time; patient age 5 years or older (additional time may be reported with 16163, as appropriate) 58639, Moderate sedation; each additional 15 minutes intraservice time CPT copyright 2020 [employer]. All rights reserved. The codes documented in thi (more content not included)... Normal [facility] Colonoscopy Study observatio non 04-09-2024 [facility] Gastrointestinal Endoscopy Patient Name: Molly Hidalgo Procedure Date: 04/09/2024 8:47 AM Date of : 1960 Admit Type: Outpatient Age: 63 Gender: Female Note Status: Finalized Procedure: Colonoscopy Indications: High risk colon cancer surveillance: Personal history of colonic polyps Providers: Alfred Wills MD Patient Profile: This is a 63 year old female. Refer to note in patient chart for documentation of history and physical. Last Colonoscopy: 5 years ago. Referring Physician: Alfred Wills MD (Referring MD), Ed Wilburn (Referring ) Medicines: Midazolam 6 mg IV, Fentanyl 100 micrograms IV, Diphenhydramine 50 mg IV Complications: No immediate complications. Requesting Provider: Procedure: Pre-Anesthesia Assessment: - Prior to the procedure, a History and Physical was performed, and patient medications and allergies were reviewed. The patient is competent. The risks and benefits of the procedure and the sedation options and risks were discussed with the patient. All questions were answered and informed consent was obtained. Patient identification and proposed procedure were verified by the physician and the nurse in the procedure room. Mental Status Examination: alert and oriented. Respiratory Examination: clear to auscultation. Prophylactic Antibiotics: The patient does not require prophylactic antibiotics. Prior Anticoagulants: The patient has taken no anticoagulant or antiplatelet agents. ASA Grade Assessment: II - A patient with mild systemic disease. After reviewing the risks and benefits, the patient was deemed in satisfactory condition to undergo the procedure. The anesthesia plan was to use moderate sedation / analgesia (conscious sedation). Immediately prior to administration of medications, the patient was re-assessed for adequacy to receive sedatives. The heart rate, respiratory rate, oxygen saturations, blood pressure, adequacy of pulmonary ventilation, and response to care were monitored throughout the procedure. The physical status of the patient was re-assessed after the procedure. After I obtained informed consent, the scope was passed under direct vision. Throughout the procedure, the patient's blood pressure, pulse, and oxygen saturations were monitored continuously. The Colonoscope was introduced through the anus and advanced to the cecum, identified by the appendiceal orifice, ileocecal valve and palpation. The colonoscopy was performed without difficulty. The patient tolerated the procedure well. The quality of the bowel preparation was good. The ileocecal valve, appendiceal orifice, and rectum were photographed. Moderate Sedation: Moderate (conscious) sedation was personally administered by the endoscopist. The following parameters were monitored: oxygen saturation, heart rate, blood pressure, and response to care. Total physician intraservice time was 32 minutes. The administration of moderate sedation was initiated at 09:07 AM. Findings: The perianal and digital rectal examinations were normal. Multiple medium-mouthed diverticula were found in the sigmoid colon. A 6 mm polyp was found in the rectum. The polyp was sessile. The polyp was removed with a cold snare. Resection and retrieval were complete. The exam was otherwise without abnormality on direct and retroflexion views. Impression: - Diverticulosis in the sigmoid colon. - One 6 mm polyp in the rectum, removed with a cold snare. Resected and retrieved. - The examination was otherwise normal on direct and retroflexion views. Recommendation: - Discharge patient to home. - Resume previous diet. (more content not included)... [facility] Radiology Study observation (narrative) [facility] HISTORY PHYSICALon HISTORY PHYSICAL HNO ID: [id number] Author: ALFRED WILLS MD Service: ? Author Type: Physician Type: H&P Filed: 04/09/2024 08:24 Note Text: HISTORY AND PHYSICAL Molly Madison Rocky 1960 REFERRING PHYSICIAN: Negrito Wilburn,* CHIEF COMPLAINT: Personal history of colon polyps HPI: The patient is a 63 year old female referred for endoscopy. Molly notes no current colon complaints The patient notes no upper GI complaints Molly has undergone prior endoscopy. She underwent colonoscopy by Dr. Rk Galeas in 2012 which returned as a tubulovillous adenoma with high-grade dysplasia in the descending colon. Polyp was noted to be 25 mm in size. She then had a 7 mm polyp removed in 2014 which returned as a hyperplastic polyp.. She then had follow-up colonoscopy in 2019 which was unremarkable. It was recommended she have a 5-year follow-up colonoscopy. The patient is being seen by me today at the request of Dr. Negrito Wilburn MD for my opinion and advice regarding follow-up for history of a tubulovillous adenoma. PAST MEDICAL HISTORY PAST MEDICAL HISTORY Diagnosis Date Abnormal glandular Papanicolaou smear of cervix Abn. Pap smear (cervix) Bulimia Chronic lower back pain Dr. Hall Colon polyps hyperplastic polyp 2014 COPD (chronic obstructive pulmonary disease) (HCC) 02/16/2023 Depression Diaphragmatic hernia without mention of obstruction or gangrene Esophageal reflux 06/09/2005 Family history of coronary artery disease Fatty liver 10/19/2023 Fibromyalgia History of alcohol dependence ([facility]) History of drug abuse ([facility]) marijuana, cocaine, acid, methamphetamines, speed. Sober since age 20s Hypertension Iron deficiency anemia Lumbar stenosis with neurogenic claudication Mononucleosis Nephrolithiasis PAD (peripheral artery disease) ([facility]) Prediabetes Pure hypercholesterolemia 06/09/2005 Tobacco use PAST SURGICAL HISTORY PAST SURGICAL HISTORY Procedure Laterality Date COLONOSCOPY FLX DX W/COLLJ SPEC WHEN PFRMD 07/23/13 Colonoscopy COLONOSCOPY FLX DX W/COLLJ SPEC WHEN PFRMD 01/14/2015 Colonoscopy, repeat in 3 years COLONOSCOPY FLX DX W/COLLJ SPEC WHEN PFRMD 10/22/2018 Colonoscopy EGD TRANSORAL BIOPSY SINGLE/MULTIPLE 07/08/09 ERCP DESTRUCTION/LITHOTRIPSY CALCULI ANY METHOD 2012 ESOPHAGOGASTRODUODENOSCO PY TRANSORAL DIAGNOSTIC 07/23/13 EGD PAST SURGICAL HISTORY OF 02/2018 L3-4 decompression, TLIF and fusion STEREOTACTIC CORE BIOPSY 02/26/07 left breast TOTAL ABDOMINAL HYSTERECT W/WO RMVL TUBE OVARY 1980s Hysterectomy, SEKOU. precancerous cells CURRENT MEDICATIONS Current Outpatient Medications Medication Sig cephALEXin (KEFLEX) 500 mg capsule Take 1 capsule by mouth two times a day for 7 days. oxybutynin XL (DITROPAN XL) 10 mg 24 hr tablet Take 1 tablet by mouth once daily. budesonide-formoterol (SYMBICORT) 80-4.5 mcg/actuation inhaler Inhale 2 Puffs as instructed two times a day. metFORMIN (GLUCOPHAGE) 500 mg tablet Take 1 tablet by mouth two times a day with meals. . DULoxetine (CYMBALTA) 60 mg capsule Take 1 capsule by mouth once daily. patient assistance buPROPion XL (WELLBUTRIN XL) 300 mg 24 hr tablet Take 1 tablet by mouth once daily. rosuvastatin (CRESTOR) 20 mg tablet Take 1 tablet by mouth daily at bedtime. albuterol HFA (VENTOLIN HFA) 90 mcg/actuation inhaler Inhale 2 Puffs as instructed every 4 hours as needed for wheezing/shortness of breath. lisinopril (ZESTRIL) 10 mg tablet Take 0.5 tablets by mouth once daily. omeprazole (PRILOSEC) 40 mg capsule Take 1 capsule by mouth once daily. nitroglycerin sublingual (NITROSTAT) 0.4 mg SL tablet Dissolve 1 tablet under the tongue every 5 minutes as needed for chest pain. pregabalin (LYRICA) 100 mg capsule Take 1 capsule by mouth twice daily for 90 days. traMADol (ULTRAM) 50 mg tablet Take 50 mg by mouth twice daily. Cholecalciferol, Vitamin D3, 2,000 unit cap Take 1 tablet by mouth once daily. No current facility-administered medications for this visit. ALLERGIES: Iodine [Contrast Dye] and Lipitor [Atorvastatin Calcium] PERSONAL HISTORY: SOCIAL HISTORY Social History Tobacco Use Smoking status: Every Day Years: 50 Types: Cigarettes Last attempt to quit: 12/08/2017 Years since quittin.9 Smokeless tobacco: Never Tobacco comments: Reports 2.5 cigarettes daily as of [id number] Substance Use Topics Alcohol use: No Comment: sober since 01/2019 Drug use: No Comment: none in many yrs FAMILY HISTORY: FAMILY HISTORY FAMILY HISTORY Problem Relation Age of Onset Heart Father from heart attack, age 50 Hyperlipidemia Father Hypertension Father Hypertension Mother Blood Disease Mother ITP Thyroid Sister Cancer Maternal Grandmother colon Heart Paternal Grandfather Heart Paternal Uncle Cancer Maternal Uncle brain REVIEW OF SYMPTOMS: The review of systems data was entered by the nurse and reviewed by me (more content not included)... Normal [facility] NURSING PROGon 04-09-2024 NURSING PROG HNO ID: [id number] Author: KEILA TINEO RN Service: ? Author Type: Registered Nurse Type: Nursing Progress Note Filed: 04/09/2024 10:10 Note Text: Gentle tactile stimuli to awaken patient, arousable and answers questions but is not ready to sit up for snack yet. Will continue to sleep on left side, oxygen on at 2L per NC. Normal [facility] NURSING PROG HNO ID: [id number] Author: KEILA TINEO, RN Service: ? Author Type: Registered Nurse Type: Nursing Progress Note Filed: 04/09/2024 09:57 Note Text: Patient received in phase II via cart in left lateral position, eyes closed, responds to verbal stimuli, skin warm and dry, respirations regular and unlabored, abdomen soft and non distended, no grimacing with light palpation of abdomen. Resting comfortably on left side. Normal [facility] SURGICAL PATHOLOGYon CASE REPORT Normal [facility] Comment on above: Order Comment: Speci men Type: BLOOD SPECIMEN Ordering Facility: [facility] Address: [address] [place] [address] Result Comment: Surg ical Pathology Report Case: [id number] Authorizing Provider: Alfred Wills MD Collected: 04/09/2024 09:39 AM Ordering Location: Ambulatory Surgery Received: 04/09/2024 03:36 PM Pathologist: Lauryn Melissa MD Specimen: Rectum, Polyp Performed By: #### 3 024-7, 6-3 #### [facility] CLIA [id number] [address] [place] [address] [place] FINAL DIAGNOSIS Normal [facility] Comment on above: Order Comment: Speci men Type: BLOOD SPECIMEN Ordering Facility: [facility] Address: [address] [place] [address] Result Comment: Rect um, polypectomy: -Hyperplastic polyp Performed By: #### 3 024-7, 6-3 #### [facility] CLIA [id number] [address] [place] [address] [place] FINAL PERFORMING LAB Normal [facility] Comment on above: Order Comment: Speci men Type: BLOOD SPECIMEN Ordering Facility: [facility] Address: [address] [place] [address] Result Comment: Diag nostic interpretation performed at [place] [address] CLIA# [id number] Slip Cover Estimator: Kevin Hughes M.D. Performed By: #### 3 024-7, 3016-3 #### [facility] IA [id number] [address] [place] [address] OF [facility] GROSS DESCRIPTION Normal [facility] Comment on above: Order Comment: Speci men Type: BLOOD SPECIMEN Ordering Facility: [facility] Address: [address] [place] [address] Result Comment: A. R ectum, Polyp Received in formalin is one no polypoid segment of tissue measuring 0.5 x 0.4 x 0.2 cm. No stalk is present. The line of resection is noted. The specimen is bisected and totally submitted in one cassette. [place] [address] JT 04/09/2024 9:26 PM Performed By: #### 3 024-7, 3016-3 #### [facility] IA [id number] [address] [place] [address] OF [facility] CNOVon 03-11-2024 CNOV Office Visit (MOISES ) -------- MOLLY HIDALGO ([id number]) 1960 F Date Time Provider Department 03/11/24 1:20 PM LORENZA MAJOR During your visit today, we recorded the following information about you: Pulse Blood pressure Weight Height 81/minute 118/84 60.3 kg 1.524 m Lorenza Major DO 03/11/2024 2:04 PM Signed [facility] SECTION OF [facility]AL CARDIOLOGY [facility] OUTPATIENT VISIT DATE March 11, 2024 PRIMARY CARE PHYSICIAN: Negrito Wilburn [address] [place] [address] HISTORY OF PRESENT ILLNESS: Ms. Hidalgo is a 63 year old female. The patient presents for evaluation treatment options of coronary calcification seen on CT scanning. The patient notes dyspnea occurring with exertion abating with rest and increased fatigue over the last 2 to 3 months. States she needs to sleep at times during the day. This was not present a year ago when she had her last nuclear stress test which was normal/low risk. She denies chest discomfort, orthopnea, paroxysmal nocturnal dyspnea, palpitations, near-syncope or syncope. The patient is single and lives at home with her 86-year-old mother. She has no children. 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 She is a current smoker, social drinker. She does not exercise on a regular basis as she is somewhat hampered by a degenerative lower spine. She states she awakens feeling rested. Cardiac risk factors: Age, postmenopausal female, hypertension, hyperlipidemia, prediabetes, tobacco abuse, known CAD i.e. coronary calcification seen on CT scanning Impression: 1. Coronary calcification seen on CT scanning according to probable CAD 2. Dyspnea exertion 3. Abnormal EKG 4. Hypertension 5. Hyperlipidemia 6. Prediabetes 7. History of COPD EKG performed today demonstrates sinus rhythm at 81 bpm with age undetermined anterior infarct. PLAN AND RECOMMENDATIONS: The patient will have nuclear stress imaging with Lexiscan updated due to her change in symptoms. Her EKG is similar to previous. In the absence of findings, will look to other noncardiac causes of her symptoms such as deconditioning, sleep apnea, COPD, etc. Heart rate, blood pressure recent cholesterol profile are favorable for which we have recommended no additions or changes to her current medical regimen. Given her ongoing symptoms, we will follow-up with her in 2 to 3 months time regardless and should she continue be symptomatic or worse, consideration may need to be given to visualize her coronary anatomy. Dietary and lifestyle modification was reemphasized to facilitate risk factor reduction. Vitals: BP 118/84 Pulse 81 Ht 152.4 cm (5') Wt 60.3 kg (132 lb 15 oz) LMP 08/02/2005 SpO2 95% BMI 25.96 kg/m? Physical Exam Vitals reviewed. Constitutional: General: She is not in acute distress. Appearance: Normal appearance. She is well-developed. HENT: Head: Normocephalic and atraumatic. Nose: Nose normal. Eyes: General: No scleral icterus. Right eye: No discharge. Left eye: No discharge. Pupils: Pupils are equal, round, and reactive to light. Neck: Thyroid: No thyromegaly. Vascular: No carotid bruit or JVD. Cardiovascular: Rate and Rhythm: Normal rate and regular rhythm. Heart sounds: Murmur heard. Systolic murmur is present with a grade of 1/6. No friction rub. No gallop. Pulmonary: Effort: Pulmonary effort is normal. No respiratory distress. Breath sounds: Normal breath sounds. No wheezing or rales. Abdominal: General: Bowel sounds are normal. Palpations: Abdomen is soft. Musculoskeletal: General: Normal range of motion. Cervical back: Normal range of motion and neck supple. Skin: General: Skin is warm and dry. Capillary Refill: Capillary refill takes less than 2 seconds. Coloration: Skin is not pale. Neurological: Mental Status: She is alert and oriented to person, place, and time. Cranial Nerves: No cranial nerve deficit. Psychiatric: Behavior: Behavior normal. Thought Content: Thought content normal. Judgment: Judgment normal. Review of Systems Constitutional: Positive for fatigue. Negative for activity change. HENT: Negative for ear pain and facial swelling. Eyes: Negative for pain and discharge. Respiratory: Positive for shortness of breath. Negative for chest tightness. Cardiovascular: Negative for chest pain, palpitations and leg swelling. Gastrointestinal: Negative for abdominal pain, blood in stool, nausea and vomiting. Endocrine: Negative for cold intolerance and heat intolerance. Genitourinary: Negative for frequency and hematuria. Musculoskeletal: Negative for arthralgias and gait problem. Skin: Negative for color change, pallor and rash. Allergic/Immunologic: Negative for immunocompromised state. Neurol (more content not included)... [facility] 03-11-2024 [facility] Telephone ([place]) -------- ROCKYMOLLY ([id number]) 1960 F Date Time Provider Department 03/11/24 LORENZA MAJOR During your visit today, we recorded the following information about you: Fernando Staton MA 03/11/2024 1:55 PM Signed Patient was seen on March 11, [address] Major. The following test(s) were ordered: Stress test Please call patient to schedule testing. Thank you! Fernando Staton MA [facility] 03/12/2024 10:02 AM Signed First attempt at contacting patient, left VM to schedule stress test Mihai, Noris 03/13/2024 9:30 AM Signed Pt is scheduled Allergies As of Date: 03/11/2024 Noted Allergy Reaction IODINE (CONTRAST DYE) 01/17/2012 7 - Swelling Comments: PT HAD A REACTION OF SWELLING IN THROAT,TROUBLE BREATHING 24 HRS AFTER INJECTION OF IV DYE FOR A CT UROGRAM. KK LIPITOR (ATORVASTATIN CALCIUM) 14 - Other: See Comments Comments: Skin turned yellow Date Reviewed: 03/11/2024 Reviewed by: Lorenza Major DO - Fully Assessed Reason for Visit: Appointment [186] Prescriptions as of 03/13/2024 - budesonide-formoterol (SYMBICORT) 80-4.5 mcg/actuation inhaler Inhale 2 Puffs as instructed two times a day. - metFORMIN (GLUCOPHAGE) 500 mg tablet Take 1 tablet by mouth two times a day with meals. . - DULoxetine (CYMBALTA) 60 mg capsule Take 1 capsule by mouth once daily. patient assistance - buPROPion XL (WELLBUTRIN XL) 300 mg 24 hr tablet Take 1 tablet by mouth once daily. - rosuvastatin (CRESTOR) 20 mg tablet Take 1 tablet by mouth daily at bedtime. - albuterol HFA (VENTOLIN HFA) 90 mcg/actuation inhaler Inhale 2 Puffs as instructed every 4 hours as needed for wheezing/shortness of breath. - lisinopril (ZESTRIL) 10 mg tablet Take 0.5 tablets by mouth once daily. - omeprazole (PRILOSEC) 40 mg capsule Take 1 capsule by mouth once daily. - nitroglycerin sublingual (NITROSTAT) 0.4 mg SL tablet Dissolve 1 tablet under the tongue every 5 minutes as needed for chest pain. - pregabalin (LYRICA) 100 mg capsule Take 1 capsule by mouth twice daily for 90 days. - traMADol (ULTRAM) 50 mg tablet Take 50 mg by mouth twice daily. - Cholecalciferol, Vitamin D3, 2,000 unit cap Take 1 tablet by mouth once daily. 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]02/03/2009 Diaphragmatic Hernia without Mention of Obstruc*07/08/2009 Bulimia [F50.2] 07/08/2009 08/17/2018 Acute gastritis without mention of hemorrhage [*07/08/2009 08/17/2018 Hypertension [I10] 06/23/2011 Kidney stones [N20.0] 01/10/2012 08/17/2018 Right flank pain [R10.9] 01/10/2012 Hypertriglyceridemia [E78.1] 08/31/2012 08/17/2018 OCD (obsessive compulsive disorder) [F42.9] 12/25/2013 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] 12/25/2013 Nephrolithiasis [N20.0] 12/25/2013 Fibromyalgia [M79.7] 05/14/2016 Alcohol dependence (HCC) [F10.20] 08/17/2016 03/15/2023 Spinal stenosis, lumbar region with neurogenic *01/10/2018 Spondylolisthesis of lumbar region [M43.16] 01/10/2018 Lumbar stenosis with neurogenic claudication [M*02/22/2018 Acute postoperative pain [G89.18] 02/23/2018 Hyperlipidemia, mixed [E78.2] 08/17/2018 Depression [F32.A] History of alcohol dependence (HCC) [F10.21] 03/15/2023 Iron deficiency anemia [D50.9] COPD (chronic obstructive pulmonary disease) (H*02/16/2023 Encounter Status:Closed by FERNANDO STATON on 03/11/24 [facility] TEST Normal [facility] Comment on above: Order Comment: [id number] TAMADOL Result Comment: TEST RESULTS LIMITS Tramadol Tramadol Positive Haburu=545 Tramadol Conf,MS,UR >78895 ng/mL Wwmdlr=208 TESTING PERFORMED AT [facility]. ORIGINAL REPORT ON FILE IN LAB CONTAINS ADDITIONAL TEST SITE INFORMATION. Performed By: #### L 801.1543, L801.1541, L505.5000 #### [facility] [address] [place], [address] [facility] 2on 01-21-2024 [facility] TEST 2 [facility] Comment on above: Order Comment: [id number] URINE TOXICOLOGY RUN LOWEST TEST Result Comment: [id number] 6+OXYCODONE-BUND (ng/mL) DRUG RESULT SCREEN CUTOFF ____ Amphetamines,Urine Negative ng/mL 1000 Amphetamine test includes Amphetamine and Methamphetamine. Barbiturates Negative ng/mL 200 Benzodiazepines Negative ng/mL 200 Cannabinoid Negative ng/mL 20 Cocaine (Metab) Negative ng/mL 300 Opiates Negative ng/mL 300 Opiates test includes Codeine, Morphine, Hydromorphone, Hydrocodone. Oxycodone/Oxymorphone,Urine Negative ng/mL 300 Test includes Oxycodone and Oxymorphone. TESTING PERFORMED AT [facility]. ORIGINAL REPORT ON FILE IN LAB CONTAINS ADDITIONAL TEST SITE INFORMATION. Performed By: #### L 801.1543, L801.1541, L505.5000 #### [facility] [address] [place], [address] Laboratory - Drug toxicology Ordered By: Omer Hall on 01-11-2024 Amphetamines Ql (U) Negative <1000 ng/mL [facility] Benzodiazepines Ql (U) Negative < 200 ng/mL [facility] Cannabinoids Screen Ql (U) Negative < 50 ng/mL [facility] Cocaine Ql (U) Negative < 300 ng/mL [facility] Opiates Ql (U) Negative < 300 ng/mL [facility] No Panel InformationOrdered By: Omer Hall on 01-11-2024 MDMA (Ecstasy) Screen Positive < 500 ng/mL [facility] Urine Barbiturates Screen Negative < 200 ng/mL [facility] Urine Drug Screen Comment [facility] Comment on above: CONFIRMATORY TESTING FOR ALL POSITIVE URINE DRUG SCREENRESULTS WILL ONLY BE SENT OUT UPON PHYSICIAN ORDER. VISTA Urine Drug Screen methods provide only preliminaryanalytical test results. A more specific alternate chemicalmethod must be used in order to obtain a confirmedanalytical result. Gas chromatography/mass spectrometery(GC/MS) is the preferred confirmatory method. Clinicalconsideration and professional judgement should be appliedto any drug of abuse test result, particularly whenpreliminary positive results are used. URINE TCA TESTING MUST BE ORDERED SEPARATELY. USE TESTMNEMONIC: [facility] Urine Methadone Screen Negative < 300 ng/mL [facility] Urine Drug Screen (VISTA)on 01-11-2024 AMPHETAMINES Negative Normal <1000 ng/mL [facility] Comment on above: Order Comment: MEDTO X Performed By: #### L 801.1543, L801.1541, L505.5000 #### [facility] [address] [place] [address] BARBITIURATES Negative Normal < 200 ng/mL [facility] Comment on above: Order Comment: MEDTO X Performed By: #### L 801.1543, L801.1541, L505.5000 #### [facility] [address] [place] [address] BENZODIAZIPINE Negative Normal < 200 ng/mL [facility] Comment on above: Order Comment: MEDTO X Performed By: #### L 801.1543, L801.1541, L505.5000 #### [facility] [address] [place] [address] COCAINE Negative Normal < 300 ng/mL [facility] Comment on above: Order Comment: MEDTO X Performed By: #### L 801.1543, L801.1541, L505.5000 #### [facility] [address] [place] [address] ECSTACY Positive Abnormal < 500 ng/mL [facility] Comment on above: Order Comment: MEDTO X Performed By: #### L 801.1543, L801.1541, L505.5000 #### [facility] [address] [place] [address] METHADONE Negative Normal < 300 ng/mL [facility] Comment on above: Order Comment: MEDTO X Performed By: #### L 801.1543, L801.1541, L505.5000 #### [facility] [address] [place], [address] OPIATES Negative Normal < 300 ng/mL [facility] Comment on above: Order Comment: MEDTO X Performed By: #### L 801.1543, L801.1541, L505.5000 #### [facility] [address] [place], [address] PCP Negative Normal < 25 ng/mL [facility] Comment on above: Order Comment: MEDTO X Performed By: #### L 801.1543, L801.1541, L505.5000 #### [facility] [address] [place], [address] THC Negative Normal < 50 ng/mL [facility] Comment on above: Order Comment: MEDTO X Performed By: #### L 801.1543, L801.1541, L505.5000 #### [facility] [address] [place], [address] VISTA UDS PH 4 Normal [facility] Comment on above: Order Comment: MEDTO X Performed By: #### L 801.1543, L801.1541, L505.5000 #### [facility] [address] [place], [address] Urine phencyclidine (PCP) de tectionOrdered By: Omer Hall on 01-11-2024 Phencyclidine Ql (U) Negative < 25 ng/mL [facility] UA DIP, URINE (POC)on 2023 BILIRUBIN UA (POCT) Negative Negative [facility] CLARITY UA (POCT) [facility] ([facility] Yellow [facility] GLUCOSE UA (POCT) Negative Negative mg/dL [facility] Hemoglobin Ql (U) Negative Negative [facility] KETONE UA (POCT) Negative Negative mg/dL [facility] LEUKOCYTES UA (POCT) Trace Abnormal Negative [facility] NITRITE UA (POCT) Negative Negative [facility] PH UA (POCT) 5.5 4.5 - 8.0 [facility] Protein Ql (U) Negative Negative mg/dL [facility] SPECIFIC GRAVITY UA (POCT) 1.025 1.005 - 1.030 [facility] UROBILINOGEN UA (POCT) 0.2 E.U./dL Haylie l E.U./dL [facility] STREP A MOLECULAR (POC)on Procedural Control Valid [facility] Strep A (POCT) Negative Negative [facility] CNPNon 10-19-2023 [place]ENN Telephone [facility] -------- MOLLY HIDALGO ([id number]) 1960 F Date Time Provider Department 10/19/23 TATYANA PEREZ During your visit today, we recorded the following information about you: Tatyana Perez APRN.CNP 10/19/2023 1:03 PM Signed Left message for pt to call back regarding results. LDCT Lung Screen Results LungRADS category: 2S Incidentals: severe coronary artery calcifications LAD, right coronary with stent? Recommendations: Continue annual screening with LDCT in 12 months. Tatyana Perez APRN.CNP October 19, 2023 1:02 PM Tatyana Perez APRN.CNP 10/19/2023 5:24 PM Signed Patient notified of results and recommend cardiology consult. She does not have a coronary stent. She has never seen a excel specialist or had any heart procedures done. She had stress test 02/2023 she was having chest pain and it was negative. She has not had any chest pain since then. Her PCP gave her nitro, which she has not used. Discussed if she has chest pain she should present to ER. Allergies As of Date: 10/19/2023 Noted Allergy Reaction IODINE (CONTRAST DYE) 01/17/2012 7 - Swelling Comments: PT HAD A REACTION OF SWELLING IN THROAT,TROUBLE BREATHING 24 HRS AFTER INJECTION OF IV DYE FOR A CT UROGRAM. DINA LIPITOR (ATORVASTATIN CALCIUM) 14 - Other: See Comments Comments: Skin turned yellow Date Reviewed: 09/26/2023 Reviewed by: Tatyana Perez APRN.COLD ROLLING SUPERVISOR - Fully Assessed Reason for Visit: Results [95] Primary Visit Diagnosis:Tobacco abuse [Z72.0] Other Visit Diagnoses:Coronary artery calcification seen on CAT scan [I25.10] Encounter for screening for lung cancer [Z12.2] Order(s):CONSULT TO CARDIOLOGY [9004] Order #: [id number]: [address] LUNG SCREEN WO KEENANON [[id number]] Order #: [id number] FUTURE Prescriptions as of 10/19/2023 - metFORMIN (GLUCOPHAGE) 500 mg tablet Take 1 tablet by mouth two times a day with meals. . - DULoxetine (CYMBALTA) 60 mg capsule Take 1 capsule by mouth once daily. patient assistance - buPROPion XL (WELLBUTRIN XL) 300 mg 24 hr tablet Take 1 tablet by mouth once daily. - rosuvastatin (CRESTOR) 20 mg tablet Take 1 tablet by mouth daily at bedtime. - albuterol HFA (VENTOLIN HFA) 90 mcg/actuation inhaler Inhale 2 Puffs as instructed every 4 hours as needed for wheezing/shortness of breath. - lisinopril (ZESTRIL) 10 mg tablet Take 0.5 tablets by mouth once daily. - omeprazole (PRILOSEC) 40 mg capsule Take 1 capsule by mouth once daily. - nitroglycerin sublingual (NITROSTAT) 0.4 mg SL tablet Dissolve 1 tablet under the tongue every 5 minutes as needed for chest pain. - pregabalin (LYRICA) 100 mg capsule Take 1 capsule by mouth twice daily for 90 days. - traMADol (ULTRAM) 50 mg tablet Take 50 mg by mouth twice daily. - Cholecalciferol, Vitamin D3, 2,000 unit cap Take 1 tablet by mouth once daily. Meds Comments as of 06/29/2012: Problem List As Of Date 10/19/2023 Noted Resolved Pure hypercholesterolemia [E78.00] 06/09/2005 08/17/2018 ESOPHAGEAL REFLUX [K21.9] 06/09/2005 Other and unspecified alcohol dependence, unspe* 03/15/2023 PMH - PAST MEDICAL HISTORY OF 08/17/2018 CHEST PAIN ANTERIOR CHEST WALL [R07.1] 02/09/2006 08/17/2018 TOBACCO USE DISORDER [F17.200] 02/09/2006 BULIMIA NERVOSA [F50.2] 02/09/2006 ADJUSTMENT DISORDER WITH DEPRESSED MOOD [F43.21]02/03/2009 Diaphragmatic Hernia without Mention of Obstruc*07/08/2009 Bulimia [F50.2] 07/08/2009 08/17/2018 Acute gastritis without mention of hemorrhage [*07/08/2009 08/17/2018 Hypertension [I10] 06/23/2011 Kidney stones [N20.0] 01/10/2012 08/17/2018 Right flank pain [R10.9] 01/10/2012 Hypertriglyceridemia [E78.1] 08/31/2012 08/17/2018 OCD (obsessive compulsive disorder) [F42.9] 12/25/2013 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] 12/25/2013 Nephrolithiasis [N20.0] 12/25/2013 Fibromyalgia [M79.7] 05/14/2016 Alcohol dependence (HCC) [F10.20] 08/17/2016 03/15/2023 Spinal stenosis, lumbar region with neurogenic *01/10/2018 Spondylolisthesis of lumbar region [M43.16] 01/10/2018 Lumbar stenosis with neurogenic claudication [M*02/22/2018 Acute postoperative pain [G89.18] 02/23/2018 Hyperlipidemia, mixed [E78.2] 08/17/2018 Depression [F32.A] History of alcohol dependence (HCC) [F10.21] 03/15/2023 Iron deficiency anemia [D50.9] COPD (chronic obstructive pulmonary disease) (H*02/16/2023 Encounter Status:Closed by TATYANA PEREZ on 10/19/23 [facility] EDDY SCREENING W TOMOon 06-13 [facility] NM CARDIAC PERF STRESS/PHARM [facility] Chest PA and Lateralon IMPRESSION: No acute radiographic abnormality. Articulation Officer: QUINTIN Transcribe Date/Time: Feb 16 2023 2:06P Dictated by : RUDY ATKINSON MD This examination was interpreted and the report reviewed and electronically signed by: RUDY ATKINSON MD on Feb 16 2023 2:07PM [facility] DIVISION OF RADIOLOGY * * *Final Report* * * DATE OF EXAM: Feb 16 2023 9:29AM WOX 5291 - XR CHEST 2V FRONTAL/LAT / PROCEDURE REASON: Chest pain, unspecified type * * * * Physician Interpretation * * * * EXAMINATION: CHEST RADIOGRAPH (2 VIEW FRONTAL & LATERAL) CLINICAL HISTORY: Chest pain, unspecified type MQ: XC2_6 EXAM DATE/TIME: 02/16/2023 9:29 AM COMPARISON: 02/14/2018 RESULT: Lines, tubes, and devices: None. Lungs and pleura: No consolidation. No lung mass. No pleural effusion. No pneumothorax. Cardiomediastinal silhouette: Normal cardiomediastinal silhouette. Bones and soft tissues: Mild scoliosis and degenerative change DIVISION OF RADIOLOGY Provider, [facility] - 02/16/2023 * * *Final Report* * * DATE OF EXAM: Feb 16 2023 9:29AM WOX [id number] - XR CHEST 2V FRONTAL/LAT / PROCEDURE REASON: Chest pain, unspecified type * * * * Physician Interpretation * * * * EXAMINATION: CHEST RADIOGRAPH (2 VIEW FRONTAL & LATERAL) CLINICAL HISTORY: Chest pain, unspecified type MQ: XC2_6 EXAM DATE/TIME: 02/16/2023 9:29 AM COMPARISON: 02/14/2018 RESULT: Lines, tubes, and devices: None. Lungs and pleura: No consolidation. No lung mass. No pleural effusion. No pneumothorax. Cardiomediastinal silhouette: Normal cardiomediastinal silhouette. Bones and soft tissues: Mild scoliosis and degenerative change IMPRESSION IMPRESSION: No acute radiographic abnormality. Articulation Officer: PSCB Transcribe Date/Time: Feb 16 2023 2:06P Dictated by : RUDY ATKINSON MD This examination was interpreted and the report reviewed and electronically signed by: RUDY ATKINSON MD on Feb 16 2023 2:07PM EST [facility] Radiology Study observation (narrative) [facility] XR Chest PA and LateralOrder ed By: [facility] Provider on 02-16-2023 [facility] Laboratory - Drug toxicology Ordered By: Dr. Hall on 01-10-2023 Amphetamines Ql (U) Negative <1000 ng/mL [facility] Benzodiazepines Ql (U) Negative < 200 ng/mL [facility] Cannabinoids Screen Ql (U) Negative < 50 ng/mL [facility] Cocaine Ql (U) Negative < 300 ng/mL [facility] Opiates Ql (U) Negative < 300 ng/mL [facility] No Panel InformationOrdered By: Dr. Hall on 01-10-2023 MDMA (Ecstasy) Screen Positive < 500 ng/mL [facility] Urine Barbiturates Screen Negative < 200 ng/mL [facility] Urine Drug Screen Comment [facility] Comment on above: CONFIRMATORY TESTING FOR ALL POSITIVE URINE DRUG SCREENRESULTS WILL ONLY BE SENT OUT UPON PHYSICIAN ORDER. VISTA Urine Drug Screen methods provide only preliminaryanalytical test results. A more specific alternate chemicalmethod must be used in order to obtain a confirmedanalytical result. Gas chromatography/mass spectrometery(GC/MS) is the preferred confirmatory method. Clinicalconsideration and professional judgement should be appliedto any drug of abuse test result, particularly whenpreliminary positive results are used. URINE TCA TESTING MUST BE ORDERED SEPARATELY. USE TESTMNEMONIC: [facility] Urine Methadone Screen Negative < 300 ng/mL [facility] Urine phencyclidine (PCP) de tectionOrdered By: Dr. Hall on 01-10-2023 Phencyclidine Ql (U) Negative < 25 ng/mL [facility] EDDY SCREENINGon 03-14-2022 [facility] CBC panel Auto (Bld)on 03-07 Erythrocyte distribution width (RBC) [Ratio] 12.5 % 11.5 - 15.0 % [facility] Hematocrit (Bld) [Volume fraction] 39.6 % 36.0 - 46.0 % [facility] Hemoglobin (Bld) [Mass/Vol] 12.9 g/dL 11.5 - 15.5 g/dL [facility] MCH (RBC) [Entitic mass] 30.3 pg 26.0 - 34.[address] [facility] MCHC (RBC) [Mass/Vol] 32.6 g/dL 30.5 - 36.0 g/dL [facility] MCV (RBC) [Entitic vol] 93.0 fL 80.0 - 100.[address] [facility] Nucleated RBC (Bld) [#/Vol] 10*3/uL <0.01 k/uL [facility] Platelet mean volume (Bld) [Entitic vol] 9.5 fL 9.0 - 12.[address] [facility] Platelets (Bld) [#/Vol] 332 10*3/uL 150 - 400 k/uL [facility] RBC (Bld) [#/Vol] 4.26 10*6/uL 3.90 - 5.2 0 m/uL [facility] WBC (Bld) [#/Vol] 13.05 10*3/uL High 3.70 - 11 .00 k/uL [facility] Comprehensive metabolic 2000 panelon 03-07-2022 Albumin [Mass/Vol] 4.2 g/dL 3.9 - 4.9 g/dL [facility] ALP [Catalytic activity/Vol] 61 U/L 34 - 123 U/L [facility] ALT [Catalytic activity/Vol] 15 U/L 7 - 38 U/L [facility] Anion gap [Moles/Vol] 12 mmol/L 9 - 18 mmol/L [facility] AST [Catalytic activity/Vol] 15 U/L 13 - 35 U/L [facility] Bilirubin [Mass/Vol] mg/dL Low 0.2 - 1 .3 mg/dL [facility] Calcium [Mass/Vol] 9.8 mg/dL 8.5 - 10. 2 mg/dL [facility] Chloride [Moles/Vol] 107 mmol/L High 97 - 10 5 mmol/L [facility] CO2 [Moles/Vol] 23 mmol/L 22 - 30 mmol/L [facility] Creatinine [Mass/Vol] 0.76 mg/dL 0.58 - 0.96 mg/dL [facility] Estimated Glomerular Filtration Rate 89 mL/min/1.73m >=60 mL/min/1.73m [facility] Glucose [Mass/Vol] 95 mg/dL 74 - 99 mg/dL [facility] Potassium [Moles/Vol] 4.2 mmol/L 3.7 - 5.1 mmol/L [facility] Protein [Mass/Vol] 6.4 g/dL 6.3 - 8.0 g/dL [facility] Sodium [Moles/Vol] 142 mmol/L 136 - 144 mmol/L [facility] Urea nitrogen [Mass/Vol] 17 mg/dL 7 - 21 mg/dL [facility] FERRITIN BLDon 03-07-2022 Ferritin [Mass/Vol] 74.2 ng/mL 14.7 - 2 05.1 ng/mL [facility] Iron and Iron binding capaci ty panelon 03-07-2022 Iron [Mass/Vol] 64 ug/dL 41 - 186 ug/dL [facility] Iron binding capacity [Mass/Vol] 282 ug/dL 232 - 386 ug/dL [facility] Iron/TIBC [Molar ratio] 22.7 % 15.0 - 57.0 % [facility] LIPID PANEL, NONFASTINGon Cholesterol [Mass/Vol] 209 mg/dL High <200 mg/dL [facility] HDL Cholesterol, Nonfasting 69 mg/dL >39 mg/dL [facility] LDL Cholesterol, Nonfasting [facility] LDL/HDL Ratio, Nonfasting [facility] Non HDL Cholesterol, Nonfasting 140 mg/dL High <130 mg/dL [facility] Total Chol/HDL Ratio, Nonfasting 3.03 mg/dL <5.10 mg/dL [facility] Triglycerides, Nonfasting 427 mg/dL High <150 mg/dL [facility] VLDL Cholesterol, Nonfasting [facility] Vital Signs Date Time Vital Sign Value Performing Clinician Norman richardson 02-12-2025 14:28-0400 Body mass index (BMI) [Ratio] 26.44 kg/m2 Jessica Palencia APRN.CNP Work Phone: [facility] 02-12-2025 [id number] Body temperature 98.6 [degF] Jessica Montenegrologsabrina DESTINATION SIGN REPAIRER.COLD ROLLING SUPERVISOR Work Phone: [facility] 02-12-2025 [id number] Body weight 60.69 kg Jessica Palencia APRNSONAL Work Phone: [facility] 02-12-2025 14:28-0400 Diastolic blood pressure 74 mm[Hg] Jessica Palencia APRNSONAL Work Phone: [facility] 02-12-2025 14:28-0400 Heart rate 93 /min Jessica Palencia APRN.KATHLEEN Work Phone: [facility] 02-12-2025 14:28-0400 Respiratory rate 18 /min Jessica Podlogar DESTINATION SIGN REPAIRER.COLD ROLLING SUPERVISOR Work Phone: [facility] 02-12-2025 14:28-0400 SaO2% (BldA) [Mass fraction] 92 % Jessica Podlogar DESTINATION SIGN REPAIRER.COLD ROLLING SUPERVISOR Work Phone: [facility] 02-12-2025 14:28-0400 Systolic blood pressure 106 mm[Hg] Jessica Podlogar DESTINATION SIGN REPAIRER.COLD ROLLING SUPERVISOR Work Phone: [facility] 01-27-2025 11:49-0400 Body mass index (BMI) [Ratio] 27.27 kg/m2 Negrito Wilburn MD Work Phone: [facility] 01-27-2025 11:49-0400 Body temperature 97.81 [degF] Negrito Wilburn MD Work Phone: [facility] 01-27-2025 11:49-0400 Body weight 62.6 kg Negrito Wilburn MD Work Phone: [facility] 01-27-2025 11:49-0400 Diastolic blood pressure 64 mm[Hg] Negrito Wilburn MD Work Phone: [facility] 01-27-2025 11:49-0400 Heart rate 81 /min Negrito Wilburn MD Work Phone: [facility] 01-27-2025 11:49-0400 Respiratory rate 18 /min Negrito Wilburn MD Work Phone: [facility] 01-27-2025 11:49-0400 SaO2% (BldA) [Mass fraction] 97 % Negrito Wilburn MD Work Phone: [facility] 01-27-2025 11:49-0400 Systolic blood pressure 102 mm[Hg] Negrito Wilburn MD Work Phone: [facility] 12-03-2024 12:05-0400 Body mass index (BMI) [Ratio] 26.53 kg/m2 Jessica Podlogar DESTINATION SIGN REPAIRER.COLD ROLLING SUPERVISOR Work Phone: [facility] 12-03-2024 12:05-0400 Body weight 60.9 kg Jessica Podlogar DESTINATION SIGN REPAIRER.COLD ROLLING SUPERVISOR Work Phone: [facility] 12-03-2024 12:05-0400 Diastolic blood pressure 84 mm[Hg] Jessica Podlogar DESTINATION SIGN REPAIRER.COLD ROLLING SUPERVISOR Work Phone: [facility] 12-03-2024 12:05-0400 Heart rate 80 /min Jessica Podlogar DESTINATION SIGN REPAIRER.COLD ROLLING SUPERVISOR Work Phone: [facility] 12-03-2024 12:05-0400 Respiratory rate 18 /min Jessica Podlogar DESTINATION SIGN REPAIRER.COLD ROLLING SUPERVISOR Work Phone: [facility] 12-03-2024 12:05-0400 SaO2% (BldA) [Mass fraction] 94 % Jessica Podlogar DESTINATION SIGN REPAIRER.COLD ROLLING SUPERVISOR Work Phone: [facility] 12-03-2024 12:05-0400 Systolic blood pressure 126 mm[Hg] Jessica Podlogar DESTINATION SIGN REPAIRER.COLD ROLLING SUPERVISOR Work Phone: [facility] 06-05-2024 12:45-0400 Body height 151.5 cm Jessica Podlogar DESTINATION SIGN REPAIRER.COLD ROLLING SUPERVISOR Work Phone: [facility] 06-05-2024 12:45-0400 Body mass index (BMI) [Ratio] 26.1 kg/m2 Jessica Podlogar DESTINATION SIGN REPAIRER.COLD ROLLING SUPERVISOR Work Phone: [facility] 06-05-2024 12:45-0400 Body weight 59.9 kg Jessica Podlogar DESTINATION SIGN REPAIRER.COLD ROLLING SUPERVISOR Work Phone: [facility] 06-05-2024 12:45-0400 Diastolic blood pressure 82 mm[Hg] Jessica Podlogar DESTINATION SIGN REPAIRER.COLD ROLLING SUPERVISOR Work Phone: [facility] 06-05-2024 12:45-0400 Heart rate 82 /min Jessica Podlogar DESTINATION SIGN REPAIRER.COLD ROLLING SUPERVISOR Work Phone: [facility] 06-05-2024 12:45-0400 Respiratory rate 18 /min Jessica Podlogar DESTINATION SIGN REPAIRER.COLD ROLLING SUPERVISOR Work Phone: [facility] 06-05-2024 12:45-0400 SaO2% (BldA) [Mass fraction] 95 % Jessica Podlogar DESTINATION SIGN REPAIRER.COLD ROLLING SUPERVISOR Work Phone: [facility] 06-05-2024 12:45-0400 Systolic blood pressure 116 mm[Hg] Jessica Podlogar DESTINATION SIGN REPAIRER.COLD ROLLING SUPERVISOR Work Phone: [facility] 04-09-2024 10:22-0400 Diastolic blood pressure 67 mm[Hg] Alfred Wills MD Work Phone: [facility] 04-09-2024 10:22-0400 Heart rate 75 /min Alfred Wills MD Work Phone: [facility] 04-09-2024 10:22-0400 Respiratory rate 15 /min Alfred Wills MD Work Phone: [facility] 04-09-2024 10:22-0400 SaO2% (BldA) [Mass fraction] 95 % Alfred Wills MD Work Phone: [facility] 04-09-2024 10:22-0400 Systolic blood pressure 103 mm[Hg] Alfred Wills MD Work Phone: [facility] 04-09-2024 08:27-0400 Body mass index (BMI) [Ratio] 25.96 kg/m2 Alfred Wills MD Work Phone: [facility] 04-09-2024 08:27-0400 Body temperature 98.1 [degF] Alfred Wills MD Work Phone: [facility] 04-09-2024 08:27-0400 Body weight 60.3 kg Alfred Wills MD Work Phone: [facility] 03-11-2024 13:02-0400 Body height 152.4 cm Lorenza Major DO Work Phone: [facility] 03-11-2024 13:02-0400 Body mass index (BMI) [Ratio] 25.96 kg/m2 Lorenza Major DO Work Phone: [facility] 03-11-2024 13:02-0400 Body weight 60.3 kg Lorenza Major DO Work Phone: [facility] 03-11-2024 13:02-0400 Diastolic blood pressure 84 mm[Hg] Lorenza Major DO Work Phone: [facility] 03-11-2024 13:02-0400 Heart rate 81 /min Lorenza Major DO Work Phone: [facility] 03-11-2024 13:02-0400 SaO2% (BldA) [Mass fraction] 95 % Lorenza Major DO Work Phone: [facility] 03-11-2024 13:02-0400 Systolic blood pressure 118 mm[Hg] Lorenza Major DO Work Phone: [facility] 12-11-2023 13:46-0400 Body weight 60.24 kg Jessica Podlogar DESTINATION SIGN REPAIRER.COLD ROLLING SUPERVISOR Work Phone: [facility] 12-11-2023 13:46-0400 Diastolic blood pressure 86 mm[Hg] Jessica Podlogar DESTINATION SIGN REPAIRER.COLD ROLLING SUPERVISOR Work Phone: [facility] 12-11-2023 13:46-0400 Heart rate 84 /min Jessica Podlogar DESTINATION SIGN REPAIRER.COLD ROLLING SUPERVISOR Work Phone: [facility] 12-11-2023 13:46-0400 Respiratory rate 18 /min Jessica Podlogar DESTINATION SIGN REPAIRER.COLD ROLLING SUPERVISOR Work Phone: [facility] 12-11-2023 13:46-0400 SaO2% (BldA) [Mass fraction] 94 % Jessica Podlogar DESTINATION SIGN REPAIRER.COLD ROLLING SUPERVISOR Work Phone: [facility] 12-11-2023 13:46-0400 Systolic blood pressure 122 mm[Hg] Jessica Podlogar DESTINATION SIGN REPAIRER.COLD ROLLING SUPERVISOR Work Phone: [facility] 11-24-2023 13:04-0500 Body height 152.4 cm Alfred Wills MD Work Phone: [facility] 11-24-2023 13:04-0500 Body temperature 97.9 [degF] Alfred Wills MD Work Phone: [facility] 11-24-2023 13:04-0500 Body weight 61.6 kg Alfred Wills MD Work Phone: [facility] 11-24-2023 13:04-0500 Diastolic blood pressure 80 mm[Hg] Alfred Wills MD Work Phone: [facility] 11-24-2023 13:04-0500 Heart rate 94 /min Alfred Wills MD Work Phone: [facility] 11-24-2023 13:04-0500 SaO2% (BldA) [Mass fraction] 94 % Alfred Wills MD Work Phone: [facility] 11-24-2023 13:04-0500 Systolic blood pressure 124 mm[Hg] Alfred Wills MD Work Phone: [facility] 11-17-2023 11:09-0500 Body temperature 98.01 [degF] Marc Vines MD Work Phone: [facility] 11-17-2023 11:09-0500 Body weight 62.96 kg Marc Vines MD Work Phone: [facility] 11-17-2023 11:09-0500 Diastolic blood pressure 72 mm[Hg] Marc Vines MD Work Phone: [facility] 11-17-2023 11:09-0500 Heart rate 84 /min Marc Vines MD Work Phone: [facility] 11-17-2023 11:09-0500 Respiratory rate 16 /min Marc Vines MD Work Phone: [facility] 11-17-2023 11:09-0500 SaO2% (BldA) [Mass fraction] 96 % Marc Vines MD Work Phone: [facility] 11-17-2023 11:09-0500 Systolic blood pressure 108 mm[Hg] Marc Vines MD Work Phone: [facility] 11-09-2023 10:51-0500 Body weight 61.24 kg Helen Tannhof DESTINATION SIGN REPAIRER.COLD ROLLING SUPERVISOR Work Phone: [facility] 11-09-2023 10:51-0500 Diastolic blood pressure 84 mm[Hg] Helen Tannhof DESTINATION SIGN REPAIRER.COLD ROLLING SUPERVISOR Work Phone: [facility] 11-09-2023 10:51-0500 Heart rate 80 /min Helen Tannhof DESTINATION SIGN REPAIRER.COLD ROLLING SUPERVISOR Work Phone: [facility] 11-09-2023 10:51-0500 Respiratory rate 20 /min Helen Tannhof DESTINATION SIGN REPAIRER.COLD ROLLING SUPERVISOR Work Phone: [facility] 11-09-2023 10:51-0500 SaO2% (BldA) [Mass fraction] 94 % Helen Tannhof DESTINATION SIGN REPAIRER.COLD ROLLING SUPERVISOR Work Phone: [facility] 11-09-2023 10:51-0500 Systolic blood pressure 130 mm[Hg] Helen Tannhof DESTINATION SIGN REPAIRER.COLD ROLLING SUPERVISOR Work Phone: [facility] 10-27-2023 12:46-0500 Body weight 60.33 kg Helen Tannhof DESTINATION SIGN REPAIRER.COLD ROLLING SUPERVISOR Work Phone: [facility] 10-27-2023 12:46-0500 Diastolic blood pressure 78 mm[Hg] Helen Tannhof DESTINATION SIGN REPAIRER.COLD ROLLING SUPERVISOR Work Phone: [facility] 10-27-2023 12:46-0500 Heart rate 88 /min Helen Tannhof DESTINATION SIGN REPAIRER.COLD ROLLING SUPERVISOR Work Phone: [facility] 10-27-2023 12:46-0500 Respiratory rate 16 /min Helen Tannhof DESTINATION SIGN REPAIRER.COLD ROLLING SUPERVISOR Work Phone: [facility] 10-27-2023 12:46-0500 SaO2% (BldA) [Mass fraction] 96 % Helen Tannhof DESTINATION SIGN REPAIRER.COLD ROLLING SUPERVISOR Work Phone: [facility] 10-27-2023 12:46-0500 Systolic blood pressure 116 mm[Hg] Helen Taylor DESTINATION SIGN REPAIRER.COLD ROLLING SUPERVISOR Work Phone: [facility] 08-07-2023 15:24-0500 Body temperature 97.81 [degF] Alexandra Praisler-Wood DESTINATION SIGN REPAIRER.COLD ROLLING SUPERVISOR Work Phone: [facility] 08-07-2023 15:24-0500 Body weight 61.69 kg Alexandra Praisler-Wood DESTINATION SIGN REPAIRER.COLD ROLLING SUPERVISOR Work Phone: [facility] 08-07-2023 15:24-0500 Diastolic blood pressure 70 mm[Hg] Alexandra Praisler-Wood DESTINATION SIGN REPAIRER.COLD ROLLING SUPERVISOR Work Phone: [facility] 08-07-2023 15:24-0500 Heart rate 96 /min Alexandra Praisler-Wood DESTINATION SIGN REPAIRER.COLD ROLLING SUPERVISOR Work Phone: [facility] 08-07-2023 15:24-0500 Respiratory rate 18 /min Alexandra Praisler-Wood DESTINATION SIGN REPAIRER.COLD ROLLING SUPERVISOR Work Phone: [facility] 08-07-2023 15:24-0500 SaO2% (BldA) [Mass fraction] 94 % Alexandra Praisler-Wood DESTINATION SIGN REPAIRER.COLD ROLLING SUPERVISOR Work Phone: [facility] 08-07-2023 15:24-0500 Systolic blood pressure 110 mm[Hg] Alexandra Praisler-Wood DESTINATION SIGN REPAIRER.COLD ROLLING SUPERVISOR Work Phone: [facility] 02-16-2023 08:02-0400 Body weight 59.06 kg Negrito Wilburn MD Work Phone: [facility] 02-16-2023 08:02-0400 Diastolic blood pressure 68 mm[Hg] Negrito Wilburn MD Work Phone: [facility] 02-16-2023 08:02-0400 Heart rate 83 /min Negrito Wilburn MD Work Phone: [facility] 02-16-2023 08:02-0400 Respiratory rate 18 /min Negrito Wilburn MD Work Phone: [facility] 02-16-2023 08:02-0400 SaO2% (BldA) [Mass fraction] 95 % Negrito Wilburn MD Work Phone: [facility] 02-16-2023 08:02-0400 Systolic blood pressure 102 mm[Hg] Negrito Wilburn MD Work Phone: [facility] 05-18-2022 13:14-0400 Body height 152.4 cm Trudy Greco MD Work Phone: [facility] 05-18-2022 13:14-0400 Body temperature 96.4 [degF] Trudy Greco MD Work Phone: [facility] 05-18-2022 13:14-0400 Body weight 56.7 kg Trudy Greco MD Work Phone: [facility] 05-18-2022 13:14-0400 Diastolic blood pressure 83 mm[Hg] Trudy Greco MD Work Phone: [facility] 05-18-2022 13:14-0400 Heart rate 98 /min Trudy Greco MD Work Phone: [facility] 05-18-2022 13:14-0400 SaO2% (BldA) [Mass fraction] 95 % Trudy Greco MD Work Phone: [facility] 05-18-2022 13:14-0400 Systolic blood pressure 129 mm[Hg] Trudy Greco MD Work Phone: [facility] 05-16-2022 10:44-0400 Body weight 56.43 kg Jessica Podlogar DESTINATION SIGN REPAIRER.COLD ROLLING SUPERVISOR Work Phone: [facility] 05-16-2022 10:44-0400 Diastolic blood pressure 70 mm[Hg] Jessica Podlogar DESTINATION SIGN REPAIRER.COLD ROLLING SUPERVISOR Work Phone: [facility] 05-16-2022 10:44-0400 Heart rate 78 /min Jessica Montenegrologar DESTINATION SIGN REPAIRER.COLD ROLLING SUPERVISOR Work Phone: [facility] 05-16-2022 10:44-0400 Respiratory rate 16 /min Jessica Palencia APRN.COLD ROLLING SUPERVISOR Work Phone: [facility] 05-16-2022 10:44-0400 SaO2% (BldA) [Mass fraction] 97 % Jessica Montenegrologsabrina DESTINATION SIGN REPAIRER.COLD ROLLING SUPERVISOR Work Phone: [facility] 05-16-2022 10:44-0400 Systolic blood pressure 114 mm[Hg] Jessica Palencia APRN.COLD ROLLING SUPERVISOR Work Phone: [facility] 03-07-2022 13:19-0400 Body height 152 cm Negrito Wilburn MD Work Phone: [facility] 03-07-2022 13:19-0400 Body weight 58.88 kg Negrito Wilburn MD Work Phone: [facility] 03-07-2022 13:19-0400 Diastolic blood pressure 76 mm[Hg] Negrito Wilburn MD Work Phone: [facility] 03-07-2022 13:19-0400 Heart rate 88 /min Negrito Wilburn MD Work Phone: [facility] 03-07-2022 13:19-0400 SaO2% (BldA) [Mass fraction] 96 % Negrito Wilburn MD Work Phone: [facility] 03-07-2022 13:19-0400 Systolic blood pressure 118 mm[Hg] Negrito Wilburn MD Work Phone: [facility] Encounters Encounter Date Encounter Type Care Provider Facility Start: 03-13-2025 End: 03-14-2025 Refill Negrito Wilburn MD Work Phone: [facility] [place] Comment on above: Refill Request Start: 03-07-2025 End: 03-10-2025 Orders Only Tatyana Perez APRN.COLD ROLLING SUPERVISOR Work Phone: Pulmonary Medicine Comment on above: Encounter for screen ing for lung cancer (Primary Dx); Tobacco abuse Appointment Start: 02-19-2025 End: 02-20-2025 Follow-up encounter Jessica Palencia APRN.COLD ROLLING SUPERVISOR Work Phone: [facility] [place] Comment on above: mamm results Start: 02-19-2025 ambulatory JESSICA PODLOGAR Facility :[facility] Start: 02-19-2025 End: 02-19-2025 Subsequent hospital visit by physician Diagnostic Mammo [facility] Comment on above: Abnormal mammogram [ R92.8] Start: 02-12-2025 End: 02-12-2025 Subsequent hospital visit by physician Xr [facility] [place] Work Phone: Radiology Comment on above: Urinary frequency [R 35.0] Start: 02-12-2025 End: 02-12-2025 Patient encounter procedure Jessica Palencia APRN.COLD ROLLING SUPERVISOR Work Phone: [facility] [place] Comment on above: Stress incontinence (Primary Dx); Urinary frequency; Smoker; Chronic cough; Allergy status to other drugs, medicaments and biological substances; Age-related osteoporosis without current pathological fracture; Encounter for screening for malignant neoplasm of lung; Chronic obstructive pulmonary disease, unspecified COPD type (HCC) Start: 02-12-2025 End: 02-12-2025 ambulatory JESSICA PODLOGAR Facility:[facility] Start: 02-12-2025 End: 02-14-2025 Follow-up encounter Trista Espinosa LPN [facility] [place] Start: 01-30-2025 End: 04-01-2025 Follow-up encounter eJanne Cotton APRN.COLD ROLLING SUPERVISOR Work Phone: [facility] [place] Start: 01-29-2025 End: 01-29-2025 Follow-up encounter Negrito Wilburn MD Work Phone: [facility] [place] Comment on above: Results Start: 01-27-2025 End: 01-27-2025 ambulatory NEGRITO WILBURN Facility:[facility] Start: 01-27-2025 End: 01-27-2025 Patient encounter procedure Negrito Wilburn MD Work Phone: Family [facility] [place] Comment on above: Dermatitis (Primary Dx) Start: 01-13-2025 End: 03-15-2025 Follow-up encounter Jessica Palencia APRN.COLD ROLLING SUPERVISOR Work Phone: Family [facility] Comment on above: mamm results Start: 01-13-2025 End: 01-13-2025 Telephone encounter Dillan Perez MD Work Phone: Mammography Comment on above: Mammogram Result Bhargav alonzo Back Start: 01-09-2025 ambulatory JESSICA PODLOGAR Facility :[facility] Start: 01-09-2025 End: 01-09-2025 ambulatory JEANNE COTTON Facility:[facility] Start: 01-08-2025 End: 01-08-2025 Refill Negrito Wilburn MD Work Phone: [facility] [place] Comment on above: Refill Request Start: 12-09-2024 End: 12-09-2024 Follow-up encounter Jeanne Cotton APRN.COLD ROLLING SUPERVISOR Work Phone: [facility] [place] Start: 12-06-2024 End: 12-06-2024 ambulatory JESSICA PODLOGAR Facility:[facility] Start: 12-04-2024 End: 12-06-2024 Follow-up encounter Jessica Palencia APRN.COLD ROLLING SUPERVISOR Work Phone: [facility] [place] Comment on above: Results Start: 12-03-2024 End: 12-03-2024 ambulatory JESSICA PODLOGAR Facility:[facility] Start: 12-03-2024 End: 12-03-2024 Patient encounter procedure Jessica Podlogsabrina DESTINATION SIGN REPAIRER.COLD ROLLING SUPERVISOR Work Phone: [facility] Comment on above: Essential hypertensi on (Primary Dx); Hyperlipidemia, mixed; Encounter for screening mammogram for breast cancer; Asymptomatic menopause; Encounter for screening for osteoporosis; Encounter for immunization; Fatigue, unspecified type; Vitamin D insufficiency; Tobacco use disorder; Coronary artery calcification; Chronic obstructive pulmonary disease, unspecified COPD type (HCC); Prediabetes Start: 12-03-2024 End: 12-03-2024 ambulatory JESSICA PODLOGAR Facility:[facility] Start: 11-11-2024 End: 11-11-2024 ambulatory Roger Wilburn Facility:[facility] Start: 11-01-2024 End: 11-02-2024 Refill Negrito Wilburn MD Work Phone: Family [facility] Comment on above: Refill Request Start: 10-07-2024 End: 10-07-2024 ambulatory Roger Wilburn Facility:[facility] Start: 09-24-2024 End: 09-24-2024 Refill Negrito Wilburn MD Work Phone: [facility] Comment on above: Refill Request Start: 09-23-2024 End: 09-23-2024 ambulatory Omer Hall Facility:[facility] Start: 08-19-2024 End: 08-19-2024 ambulatory Alexandra Bassett MA [facility] Start: 08-19-2024 End: 08-19-2024 Patient encounter procedure Alexandra Bassett MA [facility] Comment on above: Population Health Na vigation Outreach ([facility] ) Start: 07-29-2024 End: 07-29-2024 ambulatory Penelope Ervin RN [facility] Start: 07-29-2024 End: 07-29-2024 Patient encounter procedure Penelope Ervin RN [facility] Comment on above: ACM CARLOS RN ( Medication Adherence Review at request of payer) Start: 07-18-2024 End: 07-18-2024 ambulatory Alexandra Bassett MA [facility] Start: 07-18-2024 End: 07-18-2024 Patient encounter procedure Alexandra Bassett MA [facility] Comment on above: Population Health Na vigation Outreach ([facility]) Start: 06-07-2024 End: 06-07-2024 Telephone encounter Jessica Palencia APRN.CNP Work Phone: [facility] Comment on above: Results Start: 06-05-2024 End: 06-06-2024 Telephone encounter Jessica Palencia APRN.CNP Work Phone: [facility] Comment on above: Results Start: 06-05-2024 End: 06-05-2024 Subsequent hospital visit by physician Jacqueline [facility] [place] Work Phone: Radiology Comment on above: Pain of right thumb [M79.644] Start: 06-05-2024 End: 06-05-2024 ambulatory JESSICA PODLOGAR Facility:[facility] Start: 06-05-2024 End: 06-05-2024 Patient encounter procedure Jessica Podlogsabrina DESTINATION SIGN REPAIRER.COLD ROLLING SUPERVISOR Work Phone: [facility] Comment on above: Routine physical exa mination (Primary Dx); Prediabetes; Hyperlipidemia, mixed; Essential hypertension; Lumbar stenosis with neurogenic claudication; Encounter for screening mammogram for breast cancer; Pain of right thumb; Chronic obstructive pulmonary disease, unspecified COPD type (HCC); Gastroesophageal reflux disease, unspecified whether esophagitis present; Coronary artery calcification Start: 06-05-2024 End: 06-05-2024 ambulatory JESSICA PODLOGAR Facility:[facility] Start: 06-05-2024 End: 06-05-2024 Physical examination Jessica Montenegrologsabrina DESTINATION SIGN REPAIRER.COLD ROLLING SUPERVISOR Work Phone: [facility] Start: 05-15-2024 End: 05-15-2024 ambulatory Alexandra Bassett MA [facility] Start: 05-15-2024 End: 05-15-2024 Patient encounter procedure Alexandra Bassett MA [facility] Comment on above: Population Health Na vigation Outreach ( [facility] [place]) Start: 05-08-2024 End: 05-08-2024 Refill Negrito Wilburn MD Work Phone: [facility] Comment on above: Refill Request Start: 04-11-2024 Telephone encounter Alfred Wills MD Work Phone: General Surgery Comment on above: Results Start: 04-09-2024 End: 04-09-2024 ambulatory ALFRED WILLS Facility:[facility] Start: 04-09-2024 End: 04-09-2024 Subsequent hospital visit by physician Alfred Wills MD Work Phone: Ambulatory Surgery Comment on above: Screening for colon cancer [Z12.11] Start: 03-20-2024 Refill Negrito Wilburn MD Work Phone: [facility] Comment on above: Refill Request Start: 03-13-2024 Refill Negrito Wilburn MD Work Phone: [facility] Comment on above: Refill Request Start: 03-11-2024 Telephone encounter Lorenza Major DO Work Phone: Cardiology Comment on above: Appointment Start: 03-11-2024 End: 03-11-2024 Patient encounter procedure Lorenza Major DO Work Phone: Cardiology Comment on above: Coronary artery calc ification seen on CAT scan (Primary Dx); GILL (dyspnea on exertion); Abnormal ECG; Primary hypertension; Hyperlipidemia, mixed Start: 03-11-2024 End: 03-11-2024 ambulatory LORENZA MAJOR Facility:[facility] Start: 02-21-2024 Telephone encounter Roger Wilburn MD Work Phone: [facility] Comment on above: Results Start: 01-11-2024 End: 01-11-2024 ambulatory [facility] Work Phone: Start: 01-11-2024 End: 01-11-2024 Patient encounter procedure [facility] Work Phone: Start: 01-11-2024 End: 01-11-2024 ambulatory [facility] Facility:[facility] Start: 12-11-2023 End: 12-11-2023 Patient encounter procedure Jessica Palencia APRN.COLD ROLLING SUPERVISOR Work Phone: [facility] Comment on above: Essential hypertensi on (Primary Dx); Prediabetes; Hyperlipidemia, mixed; Gastroesophageal reflux disease, unspecified whether esophagitis present; Tobacco use disorder; Recurrent major depressive disorder, in partial remission ([facility]); Lumbar stenosis with neurogenic claudication; PROSPER (acute kidney injury) ([facility]) Start: 12-11-2023 Telephone encounter Roger Wilburn MD Work Phone: [facility] Comment on above: Opened In Error Start: 12-10-2023 Refill Marc martinez MD Work Phone: [facility] Comment on above: Med Change Request Start: 12-01-2023 Refill Helen Taylor APRN.COLD ROLLING SUPERVISOR Work Phone: Family [facility] [place] Comment on above: Med Change Request Start: 11-24-2023 End: 07-23-2024 Telephone encounter Alfred Wills MD Work Phone: General Surgery Comment on above: 01/09/2024 colon asc Start: 11-24-2023 End: 11-24-2023 Patient encounter procedure Alfred Wills MD Work Phone: General Surgery Comment on above: Tubulovillous adenom a (Primary Dx); Screening for colon cancer Start: 11-19-2023 ambulatory Susy Gonzales RN [facility] Start: 11-19-2023 Patient encounter procedure Susy Gonzales RN [facility] Comment on above: Clinical Update Start: 11-19-2023 Telephone encounter Shannen baker PA-C Work Phone: [facility] Comment on above: Results Start: 11-17-2023 End: 11-17-2023 Patient encounter procedure Marc Vines MD Work Phone: [facility] Comment on above: Urinary frequency (P rimary Dx); Stress incontinence Start: 11-15-2023 Telephone encounter Roger Wilburn MD Work Phone: Family [facility] [place] Comment on above: rax referral to outs alena Start: 11-10-2023 Telephone encounter Helen strange DESTINATION SIGN REPAIRER.COLD ROLLING SUPERVISOR Work Phone: Family [facility] [place] Comment on above: Results (Covid, Flu, RSV) Start: 11-09-2023 ambulatory Helen Taylor DESTINATION SIGN REPAIRER.COLD ROLLING SUPERVISOR Work Phone: [facility] [place] Comment on above: Patient Question; Co ugh; urinary incontinence and medication question Start: 11-09-2023 End: 11-09-2023 Patient encounter procedure Helen Taylor APRN.COLD ROLLING SUPERVISOR Work Phone: [facility] [place] Comment on above: Sore throat (Primary Dx); Chronic obstructive pulmonary disease, unspecified COPD type (HCC); Stress incontinence Start: 10-30-2023 Telephone encounter Helen No alie DESTINATION SIGN REPAIRER.COLD ROLLING SUPERVISOR Work Phone: Family [facility] [place] Comment on above: Results (Urine ) Start: 10-27-2023 End: 10-27-2023 Patient encounter procedure Helen Taylor DESTINATION SIGN REPAIRER.COLD ROLLING SUPERVISOR Work Phone: [facility] [place] Comment on above: Stress incontinence (Primary Dx); PROSPER (acute kidney injury) ([facility]) Start: 10-26-2023 Telephone encounter Jessica rahman DESTINATION SIGN REPAIRER.COLD ROLLING SUPERVISOR Work Phone: [facility] Comment on above: Urinary Problem Start: 10-19-2023 Telephone encounter Roger Wilburn MD Work Phone: [facility] [place] Comment on above: Results Start: 08-25-2023 Refill Negrito Wilburn MD Work Phone: [facility] [place] Comment on above: Refill Request Start: 08-07-2023 End: 08-07-2023 Patient encounter procedure Alexandra Morales DESTINATION SIGN REPAIRER.COLD ROLLING SUPERVISOR Work Phone: [facility] Comment on above: Upper respiratory tr act infection, unspecified type (Primary Dx) Start: 06-13-2023 Documentation procedure Mammog lory Coordinator [facility] Start: 06-13-2023 Letter encounter Mammography Coordinator [facility] Department Start: 06-13-2023 Telephone encounter Roger Wilburn MD Work Phone: [facility] [place] Comment on above: Results Start: 06-13-2023 End: 06-13-2023 Subsequent hospital visit by physician Screen Mammo [facility] Mammogram Start: 04-19-2023 ambulatory Negrito Wilburn MD Work Phone: Internal Medicine [facility] [place] Start: 03-06-2023 Telephone encounter Roger Wilburn MD Work Phone: Family [facility] [place] Comment on above: Results Start: 03-06-2023 End: 03-06-2023 Subsequent hospital visit by physician Injection Nm [facility] Work Phone: Nuclear Medicine Comment on above: Chest pain, unspecif ied type [R07.9] Start: 02-22-2023 Telephone encounter Roger Wilburn MD Work Phone: [facility] Comment on above: Results Start: 02-20-2023 Telephone encounter Roger Wilburn MD Work Phone: [facility] Comment on above: Results Start: 02-16-2023 Telephone encounter Roger Wilburn MD Work Phone: [facility] Comment on above: Results Start: 02-16-2023 End: 02-16-2023 Subsequent hospital visit by physician Xr [facility] Work Phone: Radiology Comment on above: Chest pain, unspecif ied type [R07.9] Start: 02-16-2023 End: 02-16-2023 Patient encounter procedure Negrito Wilburn MD Work Phone: [facility] Comment on above: Chest pain, unspecif ied type (Primary Dx); Primary hypertension; Hyperlipidemia, mixed; Tobacco use disorder; Abnormal EKG Start: 01-10-2023 End: 01-10-2023 ambulatory [facility] Work Phone: Start: 01-10-2023 End: 01-10-2023 Patient encounter procedure [facility] Start: 09-08-2022 Refill Negrito Wilburn MD Work Phone: [facility] Comment on above: Refill Request Start: 06-20-2022 Telephone encounter Roger Wilburn MD Work Phone: [facility] Comment on above: Results Start: 06-03-2022 Telephone encounter Roger Wilburn MD Work Phone: [facility] Comment on above: Results Start: 05-18-2022 End: 05-18-2022 Patient encounter procedure Trudy Greco MD Work Phone: General Surgery Comment on above: Calcification of lef t breast on mammography (Primary Dx) Start: 05-16-2022 End: 05-16-2022 Patient encounter procedure Jessica Palencia APRN.COLD ROLLING SUPERVISOR Work Phone: [facility] [place] Comment on above: Decreased pedal puls es (Primary Dx) Start: 05-11-2022 Telephone encounter Roger Wilburn MD Work Phone: [facility] [place] Comment on above: report findiings Start: 05-03-2022 Telephone encounter Jessica rahman APRN.COLD ROLLING SUPERVISOR Work Phone: [facility] [place] Comment on above: Results Start: 03-28-2022 Telephone encounter Roger Wilburn MD Work Phone: [facility] [place] Comment on above: Results Start: 03-15-2022 Orders Only Jessica Palencia APRN.COLD ROLLING SUPERVISOR Work Phone: [facility] [place] Start: 03-14-2022 Documentation procedure Mammog lory Coordinator [facility] Start: 03-14-2022 Letter encounter Mammography Coordinator [facility] Start: 03-14-2022 Telephone encounter Jessica rahman DESTINATION SIGN REPAIRER.COLD ROLLING SUPERVISOR Work Phone: [facility] [place] Comment on above: Results Start: 03-14-2022 End: 03-14-2022 Subsequent hospital visit by physician Screen Mammo [facility] Mamm[facility] Comment on above: Screening mammogram for breast cancer [Z12.31] Start: 03-09-2022 Telephone encounter Roger Wilburn MD Work Phone: [facility] [place] Comment on above: Results Start: 03-07-2022 Telephone encounter Omar LUCAS Work Phone: Psychology Comment on above: Consult (Initial [facility] W Pt Outreach ) Start: 03-07-2022 End: 03-07-2022 Patient encounter procedure Negrito Wilburn MD Work Phone: [facility] [place] Comment on above: Annual physical exam (Primary Dx); Recurrent major depressive disorder, in partial remission (HCC); Essential hypertension; Hyperlipidemia, mixed; Gastroesophageal reflux disease, unspecified whether esophagitis present; Prediabetes; Tobacco use; Fibromyalgia; Iron deficiency anemia, unspecified iron deficiency anemia type; Screening mammogram for breast cancer; Need for COVID-19 vaccine Procedures Date Procedure Procedure Detail Performing Clinician Start: 02-19-2025 Us breast uni real t topher with image limited Jessica Podlogar DESTINATION SIGN REPAIRER.COLD ROLLING SUPERVISOR Work Phone: Start: 02-19-2025 Digital breast tomosynthesis unilateral Jessica Podlogar DESTINATION SIGN REPAIRER.COLD ROLLING SUPERVISOR Work Phone: Start: 02-12-2025 Radiologic exam ches t 2 views Jessica Podlogar DESTINATION SIGN REPAIRER.COLD ROLLING SUPERVISOR Work Phone: Start: 02-12-2025 Urnls dip stick/tabl et rgnt auto w/o microscopy Jessica Podlogar DESTINATION SIGN REPAIRER.COLD ROLLING SUPERVISOR Work Phone: Start: 12-03-[address] [employer] COVI D-19 VACCINE AGE 12+ YR (COMIRNATY) Jessica Podlogar DESTINATION SIGN REPAIRER.COLD ROLLING SUPERVISOR Work Phone: Start: 06-05-2024 Radex fingr minimum 2 views Jessica Podlogar DESTINATION SIGN REPAIRER.COLD ROLLING SUPERVISOR Work Phone: Start: 06-05-2024 Lipid 1996 panel - S jenaro or Plasma Jessica Podlogar DESTINATION SIGN REPAIRER.COLD ROLLING SUPERVISOR Work Phone: Start: 04-09-2024 Colonoscopy flx dx w /collj spec when pfrmd Alfred Wills MD Work Phone: Start: 04-09-2024 Colonoscopy Alfred moreno MD Work Phone: Start: 11-17-2023 Urnls dip stick/tabl et rgnt auto w/o microscopy Geraldo Wesley DESTINATION SIGN REPAIRER.COLD ROLLING SUPERVISOR Work Phone: Start: 11-09-2023 STREP A MOLECULAR (POC) Helen Taylor DESTINATION SIGN REPAIRER.COLD ROLLING SUPERVISOR Work Phone: Start: 06-13-2023 Screening digital br east tomosynthesis bi Negrito Wilburn MD Work Phone: Start: 03-06-2023 Myocardial spect mul tiple studies Negrito Wilburn MD Work Phone: Start: 02-16-2023 Radiologic exam ches t 2 views Negrito Wilburn MD Work Phone: Start: 06-17-2022 Lipid 1996 panel - S jenaro or Plasma Negrito Wilburn MD Work Phone: Start: 03-14-2022 End: 03-14-2022 Mammography Negrito baker MD Work Phone: Start: 03-07-2022 [employer] COVI D-19 VACCINE, AGE 12+ YR ([place] TOP) Negrito Wilburn MD Work Phone: Start: 03-23-2020 Mammography Omar Na ll STAFF RESEARCH SCIENTIST Work Phone: Start: 10-22-2018 Colonoscopy Omar Na ll STAFF RESEARCH SCIENTIST Work Phone: Plan of Treatment Date Care Activity Detail Author Start: 04-09-2034 Screening for malign ant neoplasm of colon [facility] Start: 06-05-2029 Lipid panel Lipid Screening [facility] Start: 04-09-2029 Screening for malign ant neoplasm of colon [facility] Start: 12-04-2027 [facility] Start: 06-17-2027 Lipid 1996 panel - S jenaro or Plasma Lipid Screening [facility] Start: 06-17-2027 Lipid panel Lipid Screening [facility] Start: 06-17-2027 L[address]ID SCREEN LIPID SCREEN [facility] Start: 06-05-2027 [facility] Start: 03-07-2027 LIPID SCREEN LIPID SCREEN [facility] Start: 02-19-2027 Diabetes Screening Diabetes Screenin g [facility] Start: 11-23-2026 Diabetes Screening Diabetes Screenin g [facility] Start: 09-19-2026 Diabetes Screening Diabetes Screenin [facility] Start: 03-15-2026 DIABETES SCREEN DIABETES SCREEN [facility] Start: 03-15-2026 Diabetes Screening Diabetes Screenin g [facility] Start: 02-21-[address] [facility] Start: 02-16-2026 DIABETES SCREEN DIABETES SCREEN [facility] Start: 02-12-2026 Annual PCP Team Batch Weigher manjula Disease Visit Annual PCP Team Chronic Disease Visit [facility] Start: 02-12-2026 BP Controlled (<130/80) BP Controlle d (<130/80) [facility] Start: 01-27-2026 Annual PCP Team Batch Weigher manjula Disease Visit Annual PCP Team Chronic Disease Visit [facility] Start: 01-27-2026 BP Controlled (<130/80) BP Controlle d (<130/80) [facility] Start: 01-09-2026 Screening for malign ant neoplasm of breast Mammogram Screening [facility] Start: 12-10-2025 LIPID SCREEN LIPID SCREEN [facility] Start: 12-03-2025 Annual PCP Team Batch Weigher manjula Disease Visit Annual PCP Team Chronic Disease Visit [facility] Start: 08-21-2025 End: 03-21-2026 MG Breast - bilateral Diagnostic [facility] Radiology Routine Abnormal mammogram Expected: 08/21/2025, Expires: 03/21/2026 [facility] Work Phone: Comment on above: Expected: 08/21/2025 , Expires: 03/21/2026 Start: 06-17-2025 DIABETES SCREEN DIABETES SCREEN [facility] Start: 06-13-2025 End: 06-13-2025 Patient encounter procedure 06/13/2025 3:00 PM EDT Office Visit Urology [id number] [place] [address] Ana Paula Monge MD [address] [place] [address] Stress incontinence [N39.3] Urology Comment on above: Stress incontinence [N39.3] Start: 06-06-2025 End: 06-06-2025 Patient encounter procedure Family [facility] [place] Comment on above: 6 month f/u Start: 06-05-2025 Annual PCP Team Batch Weigher manjula Disease Visit Annual PCP Team Chronic Disease Visit [facility] Start: 06-05-2025 Covid-19 Vaccine ( season) Covid-19 Vaccine ( season) [facility] Start: 06-05-2025 Hepatitis B surface antibody level LDL Cholesterol [facility] Start: 06-05-2025 End: 06-05-2025 Patient encounter procedure 06/05/2025 2:00 PM EDT Office Visit [facility] [place] [address] [place], [place] [address] Jeanne Cotton, DESTINATION SIGN REPAIRER.COLD ROLLING SUPERVISOR [address] [place], [place] [address] 6 month f/u [facility] [place] Comment on above: 6 month f/u Start: 05-19-2025 Influenza vaccination Influenza Vacc ine (#1) [facility] Start: 04-17-2025 End: 04-17-2025 Patient encounter procedure Cat Scan Comment on above: Lung Cancer Screenin g Start: 03-10-2025 End: 03-10-2025 Patient encounter procedure 03/10/2025 9:00 AM EDT Office Visit Pulmonary Medicine [address] [place] [address] Tatyana Perez APRN.COLD ROLLING SUPERVISOR [address] [place] [address] Smoker [F17.200] Pulmonary Medicine Comment on above: Smoker [F17.200] Start: 03-07-2025 DIABETES SCREEN DIABETES SCREEN [facility] Start: 02-19-2025 End: 02-19-2025 Patient encounter procedure Mammogram Comment on above: LEFT DX MAMM CALL BA CK Comp- LEFT DX MAMM C ALL BACK breast Start: 01-27-2025 End: 04-28-2025 Borrelia burgdorferi IgG and IgM panel - Serum [facility] Work Phone: Comment on above: Expected: 01/27/2025 , Expires: 04/28/2025 Start: 01-09-2025 End: 01-09-2025 Patient encounter procedure Radiology Comment on above: Asymptomatic menopau se [Z78.0] Encounter for screen ing mammogram for breast cancer [Z12.31] Start: 01-05-2025 End: 04-06-2025 25-hydroxyvitamin D3 [Mass/volume] in Serum or Plasma VITAMIN D 25 HYDROXY Lab Routine High vitamin D level Expected: 01/05/2025, Expires: 04/06/2025 [facility] Work Phone: Comment on above: Expected: 01/05/2025 , Expires: 04/06/2025 Start: 12-10-2024 Annual PCP Team Batch Weigher manjula Disease Visit Annual PCP Team Chronic Disease Visit [facility] Start: 12-09-2024 End: 03-10-2025 25-hydroxyvitamin D3 [Mass/volume] in Serum or Plasma VITAMIN D 25 HYDROXY Lab Routine High vitamin D level Expected: 12/09/2024, Expires: 03/10/2025 [facility] Work Phone: Comment on above: Expected: 12/09/2024 , Expires: 03/10/2025 Start: 12-04-2024 End: 03-05-2025 Thyrotropin [Units/volume] in Serum or Plasma THYROID STIMULATING HORMONE Lab Routine Elevated TSH Expected: 12/04/2024, Expires: 03/05/2025 [facility] Work Phone: Comment on above: Expected: 12/04/2024 , Expires: 03/05/2025 Start: 12-04-2024 End: 03-05-2025 Thyroxine (T4) free [Mass/volume] in Serum or Plasma T4 FREE/FREE THYROXINE Lab Routine Elevated TSH Expected: 12/04/2024, Expires: 03/05/2025 [facility] Comment on above: Expected: 12/04/2024 , Expires: 03/05/2025 Start: 12-03-2024 End: 03-04-2025 25-hydroxyvitamin D3 [Mass/volume] in Serum or Plasma [facility] Comment on above: Expected: 12/03/2024 , Expires: 03/04/2025 Start: 12-03-2024 End: 03-04-2025 Cobalamin (Vitamin B12) [Mass/volume] in Serum or Plasma [facility] Comment on above: Expected: 12/03/2024 , Expires: 03/04/2025 Start: 12-03-2024 End: 03-04-2025 Comprehensive metabolic 2000 panel - Serum or Plasma [facility] Work Phone: Comment on above: Expected: 12/03/2024 , Expires: 03/04/2025 Start: 12-03-2024 End: 03-04-2025 Thyrotropin [Units/volume] in Serum or Plasma [facility] Comment on above: Expected: 12/03/2024 , Expires: 03/04/2025 Start: 12-03-2024 End: 12-03-2024 Patient encounter procedure [facility] [place] Comment on above: 6 Month Follow up MEDICARE [facility] Start: 11-16-2024 BP Controlled (<130/80) BP Controlle d (<130/80) [facility] Start: 11-09-2024 Annual PCP Team Batch Weigher manjula Disease Visit Annual PCP Team Chronic Disease Visit [facility] Start: 2024 Advance Directive Discussion Advance Directive Discussion [facility] Start: 2024 PNEUMOCOCCAL (3 - PP SV23 if available, else PCV20) PNEUMOCOCCAL (3 - PPSV23 if available, else PCV20) [facility] Start: 2024 PNEUMOCOCCAL (3 - PP SV23 or PCV20) PNEUMOCOCCAL (3 - PPSV23 or PCV20) [facility] Start: [address] [facility] Start: 2024 Screening for osteoporosis Bone Density Screening [facility] Start: 10-27-2024 Annual PCP Team Batch Weigher manjula Disease Visit Annual PCP Team Chronic Disease Visit [facility] Start: 10-27-2024 BP Controlled (<130/80) BP Controlle d (<130/80) [facility] Start: 10-16-2024 Screening for malign ant neoplasm of lung Lung Cancer Screening [facility] Start: 09-26-2024 BP Controlled (<130/80) BP Controlle d (<130/80) [facility] Start: 09-19-2024 Annual PCP Team Batch Weigher manjula Disease Visit Annual PCP Team Chronic Disease Visit [facility] Start: 09-18-2024 Medicare Advantage Annual Wellness Visit Medicare Advantage Annual Wellness Visit [facility] Start: 09-03-2024 DIABETES SCREEN DIABETES SCREEN [facility] Start: 08-22-2024 Covid-19 Vaccine ( season) Covid-19 Vaccine () [facility] Start: 08-21-2024 Pneumococcal Vaccine : 50+ (3 of 3 - PCV20 or PCV21) Pneumococcal Vaccine: 50+ (3 of 3 - PCV20 or PCV21) [facility] Start: 08-07-2024 BP Controlled (<130/80) BP Controlle d (<130/80) [facility] Start: 07-07-2024 End: 10-06-2024 CBC W Auto Differential panel - Blood COMPLETE BLOOD COUNT AND DIFFERENTIAL Lab Routine Pain of right thumb Expected: 07/07/2024, Expires: 10/06/2024 [facility] Comment on above: Expected: 07/07/2024 , Expires: 10/06/2024 Start: 07-07-2024 End: 10-06-2024 Urate [Mass/volume] in Serum or Plasma URIC ACID Lab Routine Pain of right thumb Expected: 07/07/2024, Expires: 10/06/2024 [facility] Work Phone: Comment on above: Expected: 07/07/2024 , Expires: 10/06/2024 Start: 06-13-2024 Mammography Mammogram Screening [facility] Start: 06-13-2024 Screening for malign ant neoplasm of breast Mammogram Screening [facility] Start: 06-05-2024 End: 09-04-2024 CBC W Auto Differential panel - Blood [facility] Comment on above: Expected: 06/05/2024 , Expires: 09/04/2024 Start: 06-05-2024 End: 09-04-2024 Comprehensive metabolic 2000 panel - Serum or Plasma [facility] Work Phone: Comment on above: Expected: 06/05/2024 , Expires: 09/04/2024 Start: 06-05-2024 End: 09-04-2024 Hemoglobin A1c in Blood [facility] Comment on above: Expected: 06/05/2024 , Expires: 09/04/2024 Start: 06-05-2024 End: 09-04-2024 Lipid 1996 panel - Serum or Plasma [facility] Comment on above: Expected: 06/05/2024 , Expires: 09/04/2024 Start: 06-05-2024 End: 09-04-2024 Urate [Mass/volume] in Serum or Plasma [facility] Comment on above: Expected: 06/05/2024 , Expires: 09/04/2024 Start: 06-05-2024 End: 06-05-2024 Patient encounter procedure 06/05/2024 12:40 PM EDT Office Visit [facility] [place] [address] [place] [address] Jessica Palencia APRN.COLD ROLLING SUPERVISOR [address] [place] [address] 6 month/Physical [facility] [place] Comment on above: 6 month/Physical Start: 05-19-2024 Influenza vaccination Influenza Vacc ine (#1) [facility] Start: 05-13-2024 End: 05-13-2024 Patient encounter procedure 05/13/2024 2:30 PM EDT Office Visit Cardiology [address] [id number] Tete Zayas APRN.COLD ROLLING SUPERVISOR [address] [place], [place] [phone] 2 month follow up Cardiology Comment on above: 2 month follow up Start: 04-09-2024 End: 04-09-2024 Patient encounter procedure Ambulatory Surgery Comment on above: \ Start: 03-27-2024 End: 03-27-2024 Patient encounter procedure Molecular Imaging Comment on above: Coronary artery calc ification seen on CAT scan [I25.10] Start: 03-15-2024 ANNUAL PCP TEAM BUSINESS EDUCATION TEACHER MANJULA DISEASE VISIT ANNUAL PCP TEAM CHRONIC DISEASE VISIT [facility] Start: 03-15-2024 BP CONTROLLED (<130/80) BP CONTROLLE D (<130/80) [facility] Start: 03-11-2024 End: 03-11-2024 Patient encounter procedure 03/11/2024 1:20 PM EDT Office Visit Cardiology [address] [place], [place] [phone] Lorenza Major DO [address] [place], [place] [phone] Coronary artery calcification seen on CAT scan [I25.10] Cardiology Comment on above: Coronary artery calc ification seen on CAT scan [I25.10] Start: 02-17-2024 ANNUAL PCP TEAM BUSINESS EDUCATION TEACHER MANJULA DISEASE VISIT ANNUAL PCP TEAM CHRONIC DISEASE VISIT [facility] Start: 02-17-2024 BP CONTROLLED (<130/80) BP CONTROLLE D (<130/80) [facility] Start: 02-05-2024 End: 05-06-2024 Basic metabolic 2000 panel - Serum or Plasma BASIC METABOLIC PNL Lab Routine PROSPER (acute kidney injury) (HCC) Expected: 02/05/2024, Expires: 05/06/2024 [facility] Work Phone: Comment on above: Expected: 02/05/2024 , Expires: 05/06/2024 Start: 01-11-2024 Procedure [facility] Start: 11-25-2023 End: 02-24-2024 Comprehensive metabolic 2000 panel - Serum or Plasma COMP METABOLIC PANEL Lab Routine PROSPER (acute kidney injury) (HCC) Expected: 11/25/2023, Expires: 02/24/2024 [facility] Work Phone: Comment on above: Expected: 11/25/2023 , Expires: 02/24/2024 Start: 10-22-[address] [facility] Start: 10-22-2023 COLORECTAL CANCER SCREENING COLORECTAL CANCER SCREENING [facility] Start: 10-22-2023 Screening for malign ant neoplasm of colon [facility] Start: 06-17-2023 Hepatitis B surface antibody level LDL Cholesterol [facility] Start: 05-19-2023 Covid-19 Vaccine ( season) Covid-19 Vaccine () [facility] Start: 05-19-2023 Influenza vaccination C [facility] Start: 05-16-2023 ANNUAL PCP TEAM BUSINESS EDUCATION TEACHER MANJULA DISEASE VISIT ANNUAL PCP TEAM CHRONIC DISEASE VISIT [facility] Start: 05-16-2023 BP CONTROLLED (<130/80) BP CONTROLLE D (<130/80) [facility] Start: 03-14-[address] [facility] Start: 03-07-2023 ANNUAL PCP TEAM BUSINESS EDUCATION TEACHER MANJULA DISEASE VISIT ANNUAL PCP TEAM CHRONIC DISEASE VISIT [facility] Start: 03-07-2023 BP CONTROLLED (<130/80) BP CONTROLLE D (<130/80) [facility] Start: 03-07-2023 Influenza vaccination LUNG CANCER SC AGUSNING [facility] Comment on above: Postponed from 11/03 (Declined at this time) Start: 02-20-2023 End: 04-22-2023 POTASSIUM BLD POTASSIUM BLD Lab Routine Hyperkalemia Expected: 02/20/2023, Expires: 04/22/2023 [facility] Work Phone: Comment on above: Expected: 02/20/2023 , Expires: 04/22/2023 Start: 02-16-2023 End: 04-18-2023 CBC W Auto Differential panel - Blood [facility] Work Phone: Comment on above: Expected: 02/16/2023 , Expires: 04/18/2023 Start: 02-16-2023 End: 04-18-2023 Comprehensive metabolic 2000 panel - Serum or Plasma [facility] Work Phone: Comment on above: Expected: 02/16/2023 , Expires: 04/18/2023 Start: 01-10-2023 Procedure [facility] Start: 09-06-2022 End: 11-06-2022 Comprehensive metabolic 2000 panel - Serum or Plasma COMP METABOLIC PANEL Lab Routine Prediabetes Expected: 09/06/2022, Expires: 11/06/2022 [facility] Work Phone: Comment on above: Expected: 09/06/2022 , Expires: 11/06/2022 Start: 09-06-2022 End: 11-06-2022 Hemoglobin A1c in Blood HGB A1C Lab Routine Prediabetes Expected: 09/06/2022, Expires: 11/06/2022 [facility] Work Phone: Comment on above: Expected: 09/06/2022 , Expires: 11/06/2022 Start: 06-09-2022 End: 08-09-2022 Comprehensive metabolic 2000 panel - Serum or Plasma COMP METABOLIC PANEL Lab Routine Hyperlipidemia, mixed Expected: 06/09/2022, Expires: 08/09/2022 [facility] Work Phone: Comment on above: Expected: 06/09/2022 , Expires: 08/09/2022 Start: 06-09-2022 End: 08-09-2022 LIPID PANEL, NONFASTING LIPID PANEL, NONFASTING Lab Routine Hyperlipidemia, mixed Expected: 06/09/2022, Expires: 08/09/2022 [facility] Work Phone: Comment on above: Expected: 06/09/2022 , Expires: 08/09/2022 Start: 05-19-2022 Influenza vaccination INFLUENZA (#1) [facility] Start: 05-02-2022 COVID-19 VACCINE (5 - Booster for Pfizer series) COVID-19 VACCINE (5 - Booster for Pfizer series) [facility] Start: 04-28-2022 End: 06-28-2022 CBC W Auto Differential panel - Blood CBC + DIFF Lab Routine Leukocytosis, unspecified type Expected: 04/28/2022, Expires: 06/28/2022 [facility] Work Phone: Comment on above: Expected: 04/28/2022 , Expires: 06/28/2022 Start: 03-09-2022 End: 05-09-2022 CBC W Auto Differential panel - Blood CBC + DIFF Lab Routine Leukocytosis, unspecified type Expected: 03/09/2022, Expires: 05/09/2022 [facility] Work Phone: Comment on above: Expected: 03/09/2022 , Expires: 05/09/2022 Start: 03-07-2022 End: 05-07-2022 Hemoglobin A1c in Blood [facility] Work Phone: Comment on above: Expected: 03/07/2022 , Expires: 05/07/2022 Start: 01-15-2022 FECAL OCCULT BLOOD FECAL OCCULT BLOO D [facility] Start: 01-15-2022 Screening for malign ant neoplasm of colon Fecal Occult Blood [facility] Start: 03-23-[address] [facility] Start: 2019 RSV Vaccine (1 - 1-d ose 60+ series) RSV Vaccine (1 - 1-dose 60+ series) [facility] Start: 2009 Influenza vaccination LUNG CANCER SC REENING [facility] Start: 2004 COLOGUARD (FIT-DNA) COLOGUARD (FIT-D NA) [facility] Start: [address] [facility] Start: 2004 Screening for malign ant neoplasm of colon [facility] Start: 2004 [facility] Start: 1989 Zoledronic acid therapy ALPHA- 1 ANTITRYPSIN DEFICIENCY SCREENING [facility] Start: 1977 Anxiety Screening Anxiety Screening [facility] Start: 1977 BP CONTROLLED (<130/80) BP CONTROLLE D (<130/80) [facility] 25-hydroxyvitamin D3 [Mass/volume] in Serum or Plasma VITAMIN D 25 HYDROXY Lab Routine High vitamin D level 12/06/2024 11:[address] [facility] Bacteria identified in Urine by Culture URINE CULTURE Microbiology Routine Stress incontinence PROSPER (acute kidney injury) (HCC) 10/27/2023 1:32 PM EST [facility] Work Phone: Bacteria identified in Urine by Culture URINE CULTURE Microbiology Routine Urinary frequency 11/17/2023 11:31 AM EST [facility] Work Phone: Bacteria identified in Urine by Culture BACTERIAL CULTURE, URINE Microbiology Routine Urinary frequency 02/12/2025 3:13 PM EDT [facility] Work Phone: End: 01-02-2026 BD DXA TRABECULAR BONE SCORE (TBS) BD DXA TRABECULAR BONE SCORE (TBS) Radiology Routine Asymptomatic menopause 1 Occurrences starting 12/03/2024 until 01/02/2026 [facility] Comment on above: 1 Occurrences starti ng 12/03/2024 until 01/02/2026 COVID & INFLUENZA A/ B & RSV NAAT, ROUTINE COVID & INFLUENZA A/B & RSV NAAT, ROUTINE Microbiology Routine Sore throat 11/09/2023 11:18 AM EST [facility] Work Phone: End: 04-06-2026 CT Chest for screening WO contrast CT LUNG SCREEN WO IVCON Radiology Routine Encounter for screening for lung cancer Tobacco abuse 1 Occurrences starting 03/07/2025 until 04/06/2026 [facility] Work Phone: Comment on above: 1 Occurrences starti ng 03/07/2025 until 04/06/2026 End: 11-17-2024 CT LUNG SCREEN WO IVCON CT LUNG SCREEN WO IVCON Radiology Routine Tobacco abuse Encounter for screening for lung cancer 1 Occurrences starting 10/19/2023 until 11/17/2024 [facility] Work Phone: Comment on above: 1 Occurrences starti ng 10/19/2023 until 11/17/2024 End: 07-05-2025 DBT Breast - bilateral screening EDDY SCREENING W ROXANNE Radiology Routine Encounter for screening mammogram for breast cancer 1 Occurrences starting 06/05/2024 until 07/05/2025 [facility] Comment on above: 1 Occurrences starti ng 06/05/2024 until 07/05/2025 End: 01-02-2026 DBT Breast - bilateral screening EDDY SCREENING W [place] Radiology Routine Encounter for screening mammogram for breast cancer 1 Occurrences starting 12/03/2024 until 01/02/2026 [facility] Comment on above: 1 Occurrences starti ng 12/03/2024 until 01/02/2026 End: 04-13-2023 Diagnostic mammography computer-aided detcj uni EDDY DIAGNOSTIC LT Radiology Routine Abnormal mammogram 1 Occurrences starting 03/14/2022 until 04/13/2023 [facility] Work Phone: Comment on above: 1 Occurrences starti ng 03/14/2022 until 04/13/2023 End: 01-02-2026 DXA Skeletal system.axial Views for bone density DXA-AXIAL SKELETON Radiology Routine Asymptomatic menopause 1 Occurrences starting 12/03/2024 until 01/02/2026 [facility] Comment on above: 1 Occurrences starti ng 12/03/2024 until 01/02/2026 End: 02-17-2024 ECG COMPLETE ECG COMPLETE ECG Routine Chest pain, unspecified type 1 Occurrences starting 02/16/2023 until 02/17/2024 [facility] Work Phone: Comment on above: 1 Occurrences starti ng 02/16/2023 until 02/17/2024 End: 05-18-2024 EDDY SCREENING EDDY SCREENING Radiology Routine Encounter for screening mammogram for breast cancer 1 Occurrences starting 04/19/2023 until 05/18/2024 [facility] Work Phone: Comment on above: 1 Occurrences starti ng 04/19/2023 until 05/18/2024 End: 02-12-2026 MG Breast - left Diagnostic for implant EDDY DIAGNOSTIC LEFT Radiology Routine Abnormal mammogram 1 Occurrences starting 01/13/2025 until 02/12/2026 [facility] Work Phone: Comment on above: 1 Occurrences starti ng 01/13/2025 until 02/12/2026 End: 03-17-2024 NM CARDIAC PERF STRESS/PHARM NM CARDIAC PERF STRESS/PHARM Radiology [place] Chest pain, unspecified type 1 Occurrences starting 02/16/2023 until 03/17/2024 [facility] Work Phone: Comment on above: 1 Occurrences starti ng 02/16/2023 until 03/17/2024 End: 04-10-2025 NM Heart Perfusion W stress and W radionuclide IV NM CARDIAC PERF STRESS/PHARM Radiology Routine Coronary artery calcification seen on CAT scan GILL (dyspnea on exertion) Abnormal ECG Primary hypertension Hyperlipidemia, mixed 1 Occurrences starting 03/11/2024 until 04/10/2025 [facility] Work Phone: Comment on above: 1 Occurrences starti ng 03/11/2024 until 04/10/2025 End: 05-16-2023 PVR ANK PRESS [facility] PVR ANK PRESS [facility] Vascular Lab Routine Decreased pedal pulses 1 Occurrences starting 05/16/2022 until 05/16/2023 [facility] Work Phone: Comment on above: 1 Occurrences starti ng 05/16/2022 until 05/16/2023 End: 11-23-2024 Screening colonoscopy COLONOSCOPY SCREENING Endoscopy Routine Screening for colon cancer Tubulovillous adenoma 1 Occurrences starting 11/24/2023 until 11/23/2024 [facility] Work Phone: Comment on above: 1 Occurrences starti ng 11/24/2023 until 11/23/2024 End: 04-06-2023 Screening mammography bi 2-view breast inc cad EDDY SCREENING Radiology Routine Screening mammogram for breast cancer 1 Occurrences starting 03/07/2022 until 04/06/2023 [facility] Work Phone: Comment on above: 1 Occurrences starti ng 03/07/2022 until 04/06/2023 SURGICAL PATHOLOGY [facility] Work Phone: Comment on above: Release Upon Orderin g for 1 Occurrences starting 04/09/2024, 1 completed Thyrotropin [Units/volume] in Serum or Plasma THYROID STIMULATING HORMONE Lab Routine Elevated TSH 12/06/2024 11:[address] [facility] Thyroxine (T4) free [Mass/volume] in Serum or Plasma T4 FREE/FREE THYROXINE Lab Routine Elevated TSH 12/06/2024 11:[address] [facility] Urinalysis complete panel - Urine URINALYSIS, WITH MICROSCOPIC Lab Routine Stress incontinence PROSPER (acute kidney injury) (HCC) 10/27/2023 1:32 PM EST [facility] Work Phone: End: 02-12-2026 US Breast - left limited US BREAST LTD LEFT Radiology Routine Abnormal mammogram 1 Occurrences starting 01/13/2025 until 02/12/2026 [facility] Comment on above: 1 Occurrences starti ng 01/13/2025 until 02/12/2026 End: 04-13-2023 Us breast uni real time with image limited US BREAST LTD LT Radiology Routine Abnormal mammogram 1 Occurrences starting 03/14/2022 until 04/13/2023 [facility] Work Phone: Comment on above: 1 Occurrences starti ng 03/14/2022 until 04/13/2023 [facility] Immunizations Immunization Date Immunization Notes Care Provider Fa [facility] 12-03-2024 COVID-19 vaccine, ag e 12+ yr (PFIZER-BIONTraksul [facility] Jessica Palencia DESTINATION SIGN REPAIRER.COLD ROLLING SUPERVISOR Work Phone: [facility] 12-03-2024 pneumococcal conjuga te (PCV20) vaccine, 20 valent (PREVNAR 20) Jessica Palencia DESTINATION SIGN REPAIRER.COLD ROLLING SUPERVISOR Work Phone: [facility] 12-03-2024 pneumococcal Conjuga te, unspecified formulation Jessica Palencia DESTINATION SIGN REPAIRER.COLD ROLLING SUPERVISOR Work Phone: [facility] 06-27-2024 COVID-19 original vaccine, age 12+ yr, monovalent (PFIZER-BIONTECH - PURPLE TOP) Alexandra Bassett MA [facility] 06-18-2024 Seasonal, trivalent, recombinant, injectable influenza vaccine, preservative free Alexandra Bassett MA [facility] 06-18-2024 influenza virus vaccine, unspecified formulation Jeanne Cotton DESTINATION SIGN REPAIRER.COLD ROLLING SUPERVISOR Work Phone: [facility] 08-28-2023 influenza virus vaccine, unspecified formulation Negrito Wilburn MD Work Phone: [facility] 07-01-2022 influenza virus vaccine, unspecified formulation Negrito Wilburn MD Work Phone: [facility] 03-07-2022 COVID-19 vaccine, ag e 12+ yr (PFIZER-BIONTECH - HORAN TOP) Omar Amelia STAFF RESEARCH SCIENTIST Work Phone: [facility] 08-27-2021 COVID-19 vaccine, ag e 12+ yr (PFIZER-BIONTECH - PURPLE TOP) Omar Amelia STAFF RESEARCH SCIENTIST Work Phone: [facility] 07-14-2021 influenza, injectabl e, quadrivalent, preservative free Omar Amelia STAFF RESEARCH SCIENTIST Work Phone: [facility] Work Phone: 11-30-2020 zoster vaccine recombinant Omar Amelia STAFF RESEARCH SCIENTIST Work Phone: [facility] Work Phone: 08-10-2020 zoster vaccine recombinant Omar Amelia STAFF RESEARCH SCIENTIST Work Phone: [facility] Work Phone: 07-16-2020 Seasonal, quadrivale nt, recombinant, injectable influenza vaccine, preservative free Omar Amelia STAFF RESEARCH SCIENTIST Work Phone: [facility] Work Phone: 08-21-2019 pneumococcal conjuga te vaccine, 13 valent Omar Amelia STAFF RESEARCH SCIENTIST Work Phone: [facility] Work Phone: 05-22-2019 Influenza, injectabl e, Madin Katheryn Canine Kidney, preservative free, quadrivalent Omar Amelia STAFF RESEARCH SCIENTIST Work Phone: [facility] Work Phone: 08-17-2018 pneumococcal polysaccharide vaccine, 23 valent Omar Amelia STAFF RESEARCH SCIENTIST Work Phone: [facility] 07-03-2018 influenza, seasonal, injectable, preservative free Omar Amelia STAFF RESEARCH SCIENTIST Work Phone: [facility] Work Phone: 02-22-2016 tetanus toxoid, redu mike diphtheria toxoid, and acellular pertussis vaccine, adsorbed Omar Amelia STAFF RESEARCH SCIENTIST Work Phone: [facility] 06-18-2015 influenza, seasonal, injectable Omar Amelia STAFF RESEARCH SCIENTIST Work Phone: [facility] Work Phone: 07-28-2014 influenza, seasonal, injectable Omar Amelia STAFF RESEARCH SCIENTIST Work Phone: [facility] 06-15-2005 tetanus and diphther ia toxoids, adsorbed, preservative free, for adult use (2 Lf of tetanus toxoid and 2 Lf of diphtheria toxoid) Omar Amelia STAFF RESEARCH SCIENTIST Work Phone: [facility] Work Phone: Payers Date Payer Category Payer Medicaid [id number] 2024 Self-pay [id number] 2022 Medicare (Managed Care) [facility] DUAL COMPLETE HMO POS SNP [id number] 2022 Unknown [id number] 2020 Medicare UHC MEDICARE [facility] DUAL COMPLETE HMO SNP [id number] 2020-Present [phone] [address] [place] [address] Medicare [id number] 2020 Medicare [id number] 1998 Medicaid [id number] Unknown [employer] [id number] Unknown [id number] Unknown [id number] Unknown [id number] Unknown [id number] Unknown [id number] Social History Date Type Detail Facility Start: [birth year]-09-1968 End: 06-05-2024 Tobacco smoking status NHIS Smokes tobacco daily [facility] Start: [birth year]-09-1968 End: 12-08-2017 History of tobacco use Cigarette Smoker [facility] Start: 08-17-2018 End: 03-06-2023 Cigarettes smoked current (pack per day) - Reported 0.5 [facility] Start: 08-17-2018 End: 06-05-2024 Tobacco use and exposure Smokeless tobacco non-user [facility] Start: 03-07-2022 End: 11-24-2023 Alcohol intake Current non-drinker of alcohol (finding) [facility] Start: 02-18-2019 History SDOH Alcohol Comment sober since 01/2019 [facility] Start: 02-18-2019 End: 05-16-2022 Tobacco Comment currently 7 cigarettes per day 02/18/2019 [facility] Start: 1960 Sex Assigned At Not on file [facility] Start: 02-25-2022 End: 05-18-2022 Exposure to SARS-CoV-2 (event) Not sure [facility] Start: 05-02-2022 End: 05-12-2022 Exposure to SARS-CoV-2 (event) Unable to assess [facility] Work Phone: Start: 02-04-2019 Tobacco smoking stat us ILIS Unknown if ever smoked [facility] Start: 02-16-2019 Cigarettes [facility] Start: 1960 Sex Assigned At Female W [facility] Start: 03-06-2023 End: 03-15-[address] [facility] Adult Depression Screening Assessment 0 [facility] Start: 03-02-2023 Gender identity Identifies as female gender (finding) [facility] Start: 03-02-2023 Sexual orientation Homosexual (findi ng) [facility] Start: 09-19-2023 Tobacco Comment Reports 2.5 ci garettes daily as of 09/19/23 [facility] Start: 11-17-2023 Tobacco Comment Reports 2.5 ci garettes daily as of [id number] [facility] Start: 04-09-2024 End: 12-03-2024 Alcohol intake Current drinker of alcohol (finding) [facility] Start: 04-09-2024 Tobacco Comment Reports 7 ciga rettes daily as of 04/09/2024 [facility] Start: 04-09-2024 Alcohol Comment socially [facility] Medical Equipment Procedure Code Equipment Code Equipment Origin al Text Equipment Identifier Dates Cage Spnl Tri 8x 23mm 6d 11mm - [id number] Start: 02-22-2018 Screw Manda 3 Annette nium Set Darrius Spine - [id number] Start: 02-22-2018 Ruben Manda 3 6mm Titanium 35mm Spinal Radiolucent - [id number] Start: 02-22-2018 Screw Manda 3 Serr viraj 5.5mm 40mm Bone Polyaxial Nonsterile Spine - [id number] Start: 02-22-2018 Screw Manda 3 Serr viraj 6mm 40mm Bone Polyaxial Nonsterile Spine - [id number] Start: 02-22-2018 Goals Date Patient Goal Desired Activity /State Personal health goal Functional Status Date Assessment Result Facility 02-25-2018 Are you deaf, or do you have serious difficulty hearing No 02/25/2018 4:36 PM EDT Hodan Warner RN No [facility] 02-25-2018 Are you blind, or do you have serious difficulty seeing, even when wearing glasses No 02/25/2018 4:36 PM EDT Hodan Warner RN No [facility] 02-25-2018 Do you have serious difficulty walking or climbing stairs Yes 02/25/2018 4:36 PM EDT Hodan Warner RN Yes [facility] 02-25-2018 Do you have difficul ty dressing or bathing Yes 02/25/2018 4:36 PM EDT Hodan Warner RN Yes [facility] 02-25-2018 Because of a physica l, mental, or emotional condition, do you have difficulty doing errands alone such as visiting a physician's office or shopping Yes 02/25/2018 4:36 PM EDT Hodan Warner RN Yes [facility] Mental Status Date Assessment Result Facility 02-25-2018 Because of a physica l, mental, or emotional condition, do you have serious difficulty concentrating, remembering, or making decisions No 02/25/2018 4:36 PM Hodan Trevizo RN No [facility] Clinical Notes 08-31-2012 to 03-14-2025 Telephone Encounter - Celestina Mathew RN - 03/14/2025 10:37 AM EDTTelephone Encounter - Celestina Mathew RN - 03/14/2025 10:37 AM EDTTelephone Encounter - Sunshine Francis - 03/13/2025 9:58 AM EDT Note Date & Type Note Facility 03-14-2025 Telephone encounter Note Next appt 06/06. It appears pt would need a refill on her Buproprion as well. Called and spoke with pt. She states she weaned herself off of the Buproprion and is not taking it anymore. She didn't think it helped at all. [facility] 03-14-2025 Miscellaneous Notes Next appt 06/06. It appears pt would need a refill on her Buproprion as well. Called and spoke with pt. She states she weaned herself off of the Buproprion and is not taking it anymore. She didn't think it helped at all. Prescription Refill Information The patient has been identified by name and date of : Yes Caregiver verified no other encounters exist for this prescription request: Yes Caregiver confirmed with patient/requestor that no other refills are due, in the near future, with this provider at this time: Yes The last office visit in the department: 02-12-25 Does the patient have a future office visit with this provider/department: Yes Requested Prescriptions Pending Prescriptions Disp Refills omeprazole (PRILOSEC) 40 mg capsule 90 capsule 1 Sig: Take 1 capsule by mouth once daily. lisinopril (ZESTRIL) 10 mg tablet 45 tablet 1 Sig: Take 0.5 tablets by mouth once daily. DULoxetine (CYMBALTA) 60 mg capsule 90 capsule 1 Sig: Take 1 capsule by mouth once daily. patient assistance levothyroxine (SYNTHROID) 25 mcg tablet 90 tablet 0 Sig: Take 1 tablet by mouth once daily. Sunshine Dinero March 13, 2025 10:00 AM documented in this encounter [facility] 03-13-2025 Telephone encounter Note Prescription Refill Information The patient has been identified by name and date of : Yes Caregiver verified no other encounters exist for this prescription request: Yes Caregiver confirmed with patient/requestor that no other refills are due, in the near future, with this provider at this time: Yes The last office visit in the department: 02-12-25 Does the patient have a future office visit with this provider/department: Yes Requested Prescriptions Pending Prescriptions Disp Refills omeprazole (PRILOSEC) 40 mg capsule 90 capsule 1 Sig: Take 1 capsule by mouth once daily. lisinopril (ZESTRIL) 10 mg tablet 45 tablet 1 Sig: Take 0.5 tablets by mouth once daily. DULoxetine (CYMBALTA) 60 mg capsule 90 capsule 1 Sig: Take 1 capsule by mouth once daily. patient assistance levothyroxine (SYNTHROID) 25 mcg tablet 90 tablet 0 Sig: Take 1 tablet by mouth once daily. Sunshine Dinero March 13, 2025 10:[address] [facility] 03-10-2025 Telephone encounter Note Pt is rescheduled 04/17/2025 [facility] Work Phone: 03-10-2025 Miscellaneous Notes Pt is rescheduled 04/17/2025 Phone call to patient to notify she is scheduled incorrectly on Monday03/10/2025. She will need to reschedule to have CT first. Left message notifying patient. Tatyana Perez APRN.CNP documented in this encounter [facility] 03-07-2025 Telephone encounter Note Phone call to patient to notify she is scheduled incorrectly on Monday03/10/2025. She will need to reschedule to have CT first. Left message notifying patient. Tatyana Perez APRN.CNP [facility] 02-20-2025 Telephone encounter Note Patient notified of results and provider's instructions. Patient verbalizes understanding. Libertad Coleman RN [facility] 02-20-2025 Miscellaneous Notes Patient notified of results and provider's instructions. Patient verbalizes understanding. Libertad Coleman RN Phoned patient left message to return call and ask to speak to a nurse for results. The focal asymmetry in the left breast at 12 o'clock, middle depth is probably benign. It is favored to represent changes from prior biopsy. Follow-up with diagnostic mammogram is recommended in 6 months. I placed order for this. Jessica Palencia APRN.CNP documented in this encounter [facility] 02-19-2025 Telephone encounter Note Phoned patient left message to return call and ask to speak to a nurse for results. [facility] 02-19-2025 Telephone encounter Note The focal asymmetry in the left breast at 12 o'clock, middle depth is probably benign. It is favored to represent changes from prior biopsy. Follow-up with diagnostic mammogram is recommended in 6 months. I placed order for this. Jessica Palencia APRN.KATHLEEN [facility] 02-19-2025 History of Present illness Narrative Radiology Service Progress Note PATIENT NAME: Molly Hidalgo DATE OF SERVICE: February 19, 2025 TIME: 1:39 PM PATIENT IDENTITY VERIFICATION COMPLETED USING TWO (2) IDENTIFIERS: Name and Date of confirmed by patient verbally. FALL SCREENING: Has the patient had 2 falls in the last year or 1 fall with injury or currently using an Ambulatory Assistive Device (Walker, Cane, Wheelchair, Crutches, etc.)? No PATIENT GENDER DATA: Assigned female at . status: : No status: NO. PATIENT RELEVANT IMPLANT DATA REVIEWED: Not Applicable PATIENT PRESENTS WITH AN IMPLANTABLE OR ATTACHED SUPERVISOR PARTICLEBOARD: No RADIOLOGY DEPARTMENT: Mammography PERIPHERAL IV DATA: Not applicable SIGNED BY: Margie Franz February 19, 2025 1:39 PM documented in this encounter [facility] 02-19-2025 Note HNO ID: [id number] Author: HYUN ARBOLEDA Mammo Tech Service: ? Author Type: Technologist Type: Progress Notes Filed: 02/19/2025 13:40 Note Text: Radiology Service Progress Note PATIENT NAME: Molly Hidalgo DATE OF SERVICE: February 19, 2025 TIME: 1:39 PM PATIENT IDENTITY VERIFICATION COMPLETED USING TWO (2) IDENTIFIERS: Name and Date of confirmed by patient verbally. FALL SCREENING: Has the patient had 2 falls in the last year or 1 fall with injury or currently using an Ambulatory Assistive Device (Walker, Cane, Wheelchair, Crutches, etc.)? No PATIENT GENDER DATA: Assigned female at . status: : No status: NO. PATIENT RELEVANT IMPLANT DATA REVIEWED: Not Applicable PATIENT PRESENTS WITH AN IMPLANTABLE OR ATTACHED SUPERVISOR PARTICLEBOARD: No RADIOLOGY DEPARTMENT: Mammography PERIPHERAL IV DATA: Not applicable SIGNED BY: Margie Franz February 19, 2025 1:39 PM [facility] 02-14-2025 Telephone encounter Note Placed call to patient with no answer. Left detailed message informing her that abx was sent to pharmacy. Vm verified. Miriam Hansen MA [facility] 02-14-2025 Miscellaneous Notes Placed call to patient with no answer. Left detailed message informing her that abx was sent to pharmacy. Vm verified. Miriam Hansen MA Urine culture preliminary shows bacterial growth with E Coli. Will send in prescription for antibiotic . Jessica Palencia APRN.KATHLEEN documented in this encounter [facility] 02-14-2025 Telephone encounter Note Urine culture preliminary shows bacterial growth with E Coli. Will send in prescription for antibiotic . Jessica Palencia APRN.CNP [facility] 02-12-2025 History of Present illness Narrative Radiology Service Progress Note PATIENT NAME: Molly Hidalgo DATE OF SERVICE: February 12, 2025 TIME: 3:19 PM PATIENT IDENTITY VERIFICATION COMPLETED USING TWO (2) IDENTIFIERS: Name and Date of confirmed by patient verbally. FALL SCREENING: Has the patient had 2 falls in the last year or 1 fall with injury or currently using an Ambulatory Assistive Device (Walker, Cane, Wheelchair, Crutches, etc.)? No PATIENT GENDER DATA: Assigned female at . status: : No status: NO. PATIENT RELEVANT IMPLANT DATA REVIEWED: Not Applicable PATIENT PRESENTS WITH AN IMPLANTABLE OR ATTACHED SUPERVISOR PARTICLEBOARD: No RADIOLOGY DEPARTMENT: General X-ray: Exam(s) Completed: Chest X-Ray PERIPHERAL IV DATA: Not applicable SIGNED BY: Laura Gallardo February 12, 2025 3:19 PM documented in this encounter [facility] 02-12-2025 Note HNO ID: [id number] Author: JOI BERNARD Tech Service: ? Author Type: Technologist Type: Progress Notes Filed: 02/12/2025 15:27 Note Text: Radiology Service Progress Note PATIENT NAME: Molly Hidalgo DATE OF SERVICE: February 12, 2025 TIME: 3:19 PM PATIENT IDENTITY VERIFICATION COMPLETED USING TWO (2) IDENTIFIERS: Name and Date of confirmed by patient verbally. FALL SCREENING: Has the patient had 2 falls in the last year or 1 fall with injury or currently using an Ambulatory Assistive Device (Walker, Cane, Wheelchair, Crutches, etc.)? No PATIENT GENDER DATA: Assigned female at . status: : No status: NO. PATIENT RELEVANT IMPLANT DATA REVIEWED: Not Applicable PATIENT PRESENTS WITH AN IMPLANTABLE OR ATTACHED SUPERVISOR PARTICLEBOARD: No RADIOLOGY DEPARTMENT: General X-ray: Exam(s) Completed: Chest X-Ray PERIPHERAL IV DATA: Not applicable SIGNED BY: Laura Gallardo February 12, 2025 3:19 PM [facility] 02-12-2025 Instructions Jessica Palencia APRN.COLD ROLLING SUPERVISOR - 02/12/2025 2:59 PM EDT - Continue your calcium supplement and vitamin D3 (2,000 IU daily) as prescribed. - Consider starting an iyvb-fiy-umiwnzm antihistamine (Shaista, Zyrtec, or Claritin) and using Flonase nasal spray to reduce post-nasal drip and coughing. - Obtain a chest X-ray today to evaluate your lungs. - The lung cancer clinic has been notified; they will contact you to schedule your low-dose CT scan screening. - Wear a mask and change your guinea pig s bedding frequently when cleaning its cage to reduce dust and allergens. - A consult has been placed with Dr. Ana Paula Lopez (urogynecology) in [place]; her office will reach out to schedule your appointment. - Your urine sample has been sent for culture; if bacteria grows, we will call you to begin antibiotic treatment. - Perform weight-bearing exercises several times a week (walking, chair stands, light arm or ankle weights, wall push-ups) to support bone strength. - Stop smoking to help improve your lung health. - Review the printed information on weekly Fosamax (bisphosphonate) and let us know if you decide to start the medication. documented in this encounter [facility] 02-12-2025 Note HNO ID: [id number] Author: JESSICA PALENCIA APRN.COLD ROLLING SUPERVISOR Service: ? Author Type: Nurse Practitioner Type: Progress Notes Filed: 02/12/2025 15:14 Note Text: 02/12/2025 Patient presents with: Cough: Has been coughing since last fall, is having coughing fits and seems to be getting worse UTI: Urgency, frequency, with small amount. Blood noticed x1. Recording using Jamgo software for draft documentation of the visit was discussed with the patient/authorized admissions representative; all questions welcomed and answered. Patient/authorized admissions representative agreed to proceed SUBJECTIVE: This is a 64 year old that is here today for Above Complaints. Chronic Cough: - Persistent cough since last fall, occurring daily. - Cough is productive with large amounts of clear mucus. - Aggravated by exposure to guinea pig and its bedding. - Associated with fatigue. - Denies dyspnea above baseline. - Using albuterol inhaler with occasional relief; adherent to Symbicort daily. - Smoker for over 50 years; denies desire to quit. Urinary Incontinence: - Severe stress incontinence, worsened over time. - Requires use of pads. - Denies urge incontinence except during current UTI symptoms. - Has been performing Kegel exercises without improvement. - Hysterectomy in the past; denies uterine prolapse. UTI Symptoms: - Urgency and frequency; denies dysuria. - Observed hematuria for one day. - Intermittent sharp pain in lower abdomen, not constant. - Denies nausea, emesis, fevers, or chills. - Not using OTC medications for symptom relief. Osteoporosis: - Taking calcium and vitamin D3 supplements. - History of calcium kidney stones; concerned about calcium intake. - Denies current weight-bearing exercises due to back issues. Latest Ref Rng 02/12/2025 GLUCOSE UA (POCT) Negative mg/dL Negative BILIRUBIN UA (POCT) Negative Negative KETONE UA (POCT) Negative mg/dL Trace SPECIFIC GRAVITY UA (POCT) 1.005 - 1.030 1.020 HEMOGLOBIN/BLOOD UA (POCT) Negative Small ! PH UA (POCT) 4.5 - 8.0 5.5 PROTEIN UA (POCT) Negative mg/dL 100 ! UROBILINOGEN UA (POCT) Normal E.U./dL 0.2 NITRITE UA (POCT) Negative Negative LEUKOCYTES UA (POCT) Negative Small ! COLOR UA (POCT) Yellow CLARITY UA (POCT) Cloudy Legend: ! Abnormal PAST MEDICAL HISTORY Diagnosis Date Abnormal glandular Papanicolaou smear of cervix Abn. Pap smear (cervix) Bulimia Chronic lower back pain Dr. Hall Colon polyps hyperplastic polyp 2014 COPD (chronic obstructive pulmonary disease) (HCC) 02/16/2023 Depression Diaphragmatic hernia without mention of obstruction or gangrene Esophageal reflux 06/09/2005 Family history of coronary artery disease Fatty liver 10/19/2023 Fibromyalgia History of alcohol dependence ([facility]) History of drug abuse ([facility]) marijuana, cocaine, acid, methamphetamines, speed. Sober since age 20s Hypertension Iron deficiency anemia Lumbar stenosis with neurogenic claudication Mononucleosis Nephrolithiasis PAD (peripheral artery disease) Prediabetes Pure hypercholesterolemia 06/09/2005 Tobacco use ALLERGIES Iodine [Contrast Dye] and Lipitor [Atorvastatin Calcium] MEDICATIONS Current Outpatient Medications Medication Sig metFORMIN (GLUCOPHAGE) 500 mg tablet Take 1 tablet by mouth two times a day with meals. . budesonide-formoterol (SYMBICORT) 80-4.5 mcg/actuation inhaler Inhale 2 puffs as instructed two times a day. levothyroxine (SYNTHROID) 25 mcg tablet Take 1 tablet by mouth once daily. rosuvastatin (CRESTOR) 20 mg tablet Take 1 tablet by mouth daily at bedtime. lisinopril (ZESTRIL) 10 mg tablet Take 0.5 tablets by mouth once daily. omeprazole (PRILOSEC) 40 mg capsule Take 1 capsule by mouth once daily. DULoxetine (CYMBALTA) 60 mg capsule Take 1 capsule by mouth once daily. patient assistance buPROPion XL (WELLBUTRIN XL) 300 mg 24 hr tablet Take 1 tablet by mouth once daily. pregabalin (LYRICA) 100 mg capsule Take 1 capsule by mouth two times a day for 90 days. Take one capsule three times a day albuterol HFA (VENTOLIN HFA) 90 mcg/actuation inhaler Inhale 2 Puffs as instructed every 4 hours as needed for wheezing/shortness of breath. nitroglycerin sublingual (NITROSTAT) 0.4 mg SL tablet Dissolve 1 tablet under the tongue every 5 minutes as needed for chest pain. traMADol (ULTRAM) 50 mg tablet Take 50 mg by mouth twice daily. Cholecalciferol, Vitamin D3, 2,000 unit cap Take 1 tablet by mouth once daily. No current facility-administered medications for this visit. Medications and allergies reviewed by this provider. SOCIAL HISTORY Social History Tobacco Use Smoking status: Every Day Current packs/day: 0.00 Types: Cigarettes Start date: [birth year]/09/1968 Last attempt to quit: 12/08/2017 Years since quittin.1 Smokeless tobacco: Never Tobacco comments: Reports 7 cigarettes daily as of 04/09/2024 Vaping Use Vaping status: Never Used Substance Use Topic (more content not included)... [facility] 02-12-2025 History of Present illness Narrative 02/12/2025 Patient presents with: Cough: Has been coughing since last fall, is having coughing fits and seems to be getting worse UTI: Urgency, frequency, with small amount. Blood noticed x1. Recording using Jamgo software for draft documentation of the visit was discussed with the patient/authorized admissions representative; all questions welcomed and answered. Patient/authorized admissions representative agreed to proceed SUBJECTIVE: This is a 64 year old that is here today for Above Complaints. Chronic Cough: - Persistent cough since last fall, occurring daily. - Cough is productive with large amounts of clear mucus. - Aggravated by exposure to guinea pig and its bedding. - Associated with fatigue. - Denies dyspnea above baseline. - Using albuterol inhaler with occasional relief; adherent to Symbicort daily. - Smoker for over 50 years; denies desire to quit. Urinary Incontinence: - Severe stress incontinence, worsened over time. - Requires use of pads. - Denies urge incontinence except during current UTI symptoms. - Has been performing Kegel exercises without improvement. - Hysterectomy in the past; denies uterine prolapse. UTI Symptoms: - Urgency and frequency; denies dysuria. - Observed hematuria for one day. - Intermittent sharp pain in lower abdomen, not constant. - Denies nausea, emesis, fevers, or chills. - Not using OTC medications for symptom relief. Osteoporosis: - Taking calcium and vitamin D3 supplements. - History of calcium kidney stones; concerned about calcium intake. - Denies current weight-bearing exercises due to back issues. Latest Ref Rng 02/12/2025 GLUCOSE UA (POCT) Negative mg/dL Negative BILIRUBIN UA (POCT) Negative Negative KETONE UA (POCT) Negative mg/dL Trace SPECIFIC GRAVITY UA (POCT) 1.005 - 1.030 1.020 HEMOGLOBIN/BLOOD UA (POCT) Negative Small ! PH UA (POCT) 4.5 - 8.0 5.5 PROTEIN UA (POCT) Negative mg/dL 100 ! UROBILINOGEN UA (POCT) Normal E.U./dL 0.2 NITRITE UA (POCT) Negative Negative LEUKOCYTES UA (POCT) Negative Small ! COLOR UA (POCT) Yellow CLARITY UA (POCT) Cloudy Legend: ! Abnormal PAST MEDICAL HISTORY Diagnosis Date Abnormal glandular Papanicolaou smear of cervix Abn. Pap smear (cervix) Bulimia Chronic lower back pain Dr. Hall Colon polyps hyperplastic polyp 2014 COPD (chronic obstructive pulmonary disease) (HCC) 02/16/2023 Depression Diaphragmatic hernia without mention of obstruction or gangrene Esophageal reflux 06/09/2005 Family history of coronary artery disease Fatty liver 10/19/2023 Fibromyalgia History of alcohol dependence ([facility]) History of drug abuse ([facility]) marijuana, cocaine, acid, methamphetamines, speed. Sober since age 20s Hypertension Iron deficiency anemia Lumbar stenosis with neurogenic claudication Mononucleosis Nephrolithiasis PAD (peripheral artery disease) Prediabetes Pure hypercholesterolemia 06/09/2005 Tobacco use ALLERGIES Iodine [Contrast Dye] and Lipitor [Atorvastatin Calcium] MEDICATIONS Current Outpatient Medications Medication Sig metFORMIN (GLUCOPHAGE) 500 mg tablet Take 1 tablet by mouth two times a day with meals. . budesonide-formoterol (SYMBICORT) 80-4.5 mcg/actuation inhaler Inhale 2 puffs as instructed two times a day. levothyroxine (SYNTHROID) 25 mcg tablet Take 1 tablet by mouth once daily. rosuvastatin (CRESTOR) 20 mg tablet Take 1 tablet by mouth daily at bedtime. lisinopril (ZESTRIL) 10 mg tablet Take 0.5 tablets by mouth once daily. omeprazole (PRILOSEC) 40 mg capsule Take 1 capsule by mouth once daily. DULoxetine (CYMBALTA) 60 mg capsule Take 1 capsule by mouth once daily. patient assistance buPROPion XL (WELLBUTRIN XL) 300 mg 24 hr tablet Take 1 tablet by mouth once daily. pregabalin (LYRICA) 100 mg capsule Take 1 capsule by mouth two times a day for 90 days. Take one capsule three times a day albuterol HFA (VENTOLIN HFA) 90 mcg/actuation inhaler Inhale 2 Puffs as instructed every 4 hours as needed for wheezing/shortness of breath. nitroglycerin sublingual (NITROSTAT) 0.4 mg SL tablet Dissolve 1 tablet under the tongue every 5 minutes as needed for chest pain. traMADol (ULTRAM) 50 mg tablet Take 50 mg by mouth twice daily. Cholecalciferol, Vitamin D3, 2,000 unit cap Take 1 tablet by mouth once daily. No current facility-administered medications for this visit. Medications and allergies reviewed by this provider. SOCIAL HISTORY Social History Tobacco Use Smoking status: Every Day Current packs/day: 0.00 Types: Cigarettes Start date: 12/09/1967 Last attempt to quit: 12/08/2017 Years since quittin.1 Smokeless tobacco: Never Tobacco comments: Reports 7 cigarettes daily as of 04/09/2024 Vaping Use Vaping status: Never Used Substance Use Topics Alcohol use: Yes Comment: socially Drug use: No Comment: none in many yrs REVIEW OF SYSTEMS All other reviewed and negative other than HPI. OBJECTIVE: BP 106/74 Pulse 93 Temp 37 C (98.6 F) Resp 18 Wt 60.7 kg (133 lb 12.8 oz) LMP 08/02/2005 SpO2 92% BMI 26.44 kg/m . Vital signs reviewed by this provider. APPEARANCE Well appearing, alert, in no acute distress, well-hydrated, well nourished. EYES conjunctiva and sclera normal. HEART RRR with normal S1 and S2, no murmurs, no gallops, no JVD appreciated LUNG clear to auscultation. No wheezes, rhonchi or rales. Able to speak in full sentences without difficulty ABDOMEN bowel sounds normoactive, no bruits, soft, non-tender, non-distended SKIN Skin color, texture, turgor normal, no suspicious rashes or lesions to exposed skin Anxiety Screening Never done Advance Directive Discussion Never done LDL Cholesterol due on 06/05/2025 Covid-19 Vaccine( season) due on 06/05/2025 Mammogram Screening due on 01/09/2026 Annual PCP Team Chronic Disease Visit due on 02/12/2026 BP Controlled (<130/80) due on 02/12/2026 DTaP,Tdap,Td Vaccine(2 - Td or Tdap) due on 02/21/2026 Diabetes Screening due on 12/04/2027 Lipid Screening due on 06/05/2029 Colorectal Cancer Screening due on 04/09/2034 Bone Density Screening Completed Influenza Vaccine Completed RSV Vaccine Completed Hepatitis C Screening Completed HIV Screening Completed Shingrix Vaccine Completed Pneumococcal Vaccine: 50+ Completed Cervical Cancer Screening Discontinued 1. Stress incontinence (N39.3) 2. Urinary frequency (R35.0) - Severe stress incontinence with urinary frequency, likely exacerbated by chronic cough. - Urinalysis shows minimal leukocytes and hematuria; low suspicion for UTI, but urine culture ordered to confirm. - Referred to urogynecology for further evaluation and management; consult placed for Dr. Ana Paula Lopez in [place]. 3. Smoker (F17.200) 4. Chronic cough (R05.3) 5. Chronic obstructive pulmonary disease, unspecified COPD type (HCC) (J44.9) - Chronic cough with clear mucus production, likely related to smoking and possible allergen exposure from guinea pig. - Ordered chest X-ray to rule out acute pulmonary issues. - Referral to lung cancer screening clinic for CT scan. - Advised trial of Shaista and Flonase to address potential allergic component. - Discussed smoking cessation; patient currently not interested in quitting. 6. Allergy status to other drugs, medicaments and biological substances (Z88.8) - Possible allergy to guinea pig and bedding. - Advised wearing a mask when handling the guinea pig or cleaning the cage. 7. Age-related osteoporosis without current pathological fracture (M81.0) - Currently taking calcium and vitamin D3 2000 IU. - Discussed bisphosphonate therapy (Fosamax) including potential side effects such as osteonecrosis of the jaw and atypical femur fractures; patient declined. - Educated on weight-bearing exercises to improve bone density. - Advised dietary intake of 1200 mg calcium daily; patient consumes dairy products. - Recent vitamin D level within normal range; advised to continue vitamin D supplementation at 1000 IU daily or 2000 IU every other day. 8. Encounter for screening for malignant neoplasm of lung (Z12.2) - Last lung cancer screening was two years ago. - Ordered repeat CT scan for lung cancer screening. Jessica Palencia APRN.KATHLEEN Prescription instructions reviewed with patient as applicable. Patient advised if symptoms do not improve or if symptoms worsen sooner, to contact their primary care physician. Potential red flag symptoms discussed with the patient. Reviewed appropriate action plan to take if red flag symptoms occur. Patient agreeable to treatment plan. Medical Decision Making: Problems: Moderate: New problem with uncertain prognosis Data: Unique test(s) ordered: 2 Risk: Moderate: Moderate risk from testing/treatment Medical Decision Making Level: 4 - Moderate documented in this encounter [facility] 01-30-2025 Telephone encounter Note Please let patient know their labs are normal.Continue levothyroxine at current dose. [facility] Work Phone: 01-30-2025 Miscellaneous Notes Please let patient know their labs are normal.Continue levothyroxine at current dose. documented in this encounter [facility] 01-29-2025 Telephone encounter Note Patient updated with results and voiced understanding. Sharri Mayorga LPN [facility] 01-29-2025 Miscellaneous Notes Patient updated with results and voiced understanding. Sharri Mayorga LPN ----- Message from Negrito Wilburn MD sent at 01/29/2025 6:58 AM EDT ----- Negative for lyme disease. documented in this encounter [facility] 01-29-2025 Telephone encounter Note ----- Message from Negrito Wilburn MD sent at 01/29/2025 6:58 AM EDT ----- Negative for lyme disease. [facility] 01-27-2025 Instructions Negrito Wilburn MD - 01/27/2025 12:06 PM EDT Apply the prescribed Lotrasone cream (a combination steroid and antifungal) to the affected area twice a day for 14 days. Monitor the rash - if it does not improve or seems to worsen, please call our office. Be alert for additional symptoms such as fever, chills, increased redness, or swelling near the joint; if these occur, seek immediate medical attention. A Lyme disease test has been ordered to rule out infection. If the rash clears up but you re still experiencing dry skin, you may use unscented lotion on your elbows twice a day as needed. documented in this encounter [facility] 01-27-2025 Note HNO ID: [id number] Author: NEGRITO WILBURN MD Service: ? Author Type: Physician Type: Progress Notes Filed: 01/27/2025 13:43 Note Text: Chief Complaint Patient presents with: Rash: Started approx 5 days ago Recording using Jamgo software for draft documentation of the visit was discussed with the patient/authorized admissions representative; all questions welcomed and answered. Patient/authorized admissions representative agreed to proceed HPI Molly Hidalgo is a 64 year old female who presents here today for Above Complaints. Right Elbow Rash: - Rash on right elbow x5 days. - Rash is pruritic, painful, and has raised bumps with clear exudate. - Skin is flaky, similar to previous winter episodes of xerosis on elbows. - No similar rash elsewhere on the body. - No recent exposure to known allergens, chemicals, or irritants. - Denies recent tick bites or contact with poison amy. - No recent changes in medications or detergents. - No associated fevers or chills. - Applied Neosporin and hydrocortisone cream once daily with minimal relief. - Denies wearing any sleeves or coverings on the affected area. Past medical history, appointments, medications, allergies reviewed. Previous Medical History PAST MEDICAL HISTORY Diagnosis Date Abnormal glandular Papanicolaou smear of cervix Abn. Pap smear (cervix) Bulimia Chronic lower back pain Dr. Hall Colon polyps hyperplastic polyp 2014 COPD (chronic obstructive pulmonary disease) (HCC) 02/16/2023 Depression Diaphragmatic hernia without mention of obstruction or gangrene Esophageal reflux 06/09/2005 Family history of coronary artery disease Fatty liver 10/19/2023 Fibromyalgia History of alcohol dependence (HCC) History of drug abuse ([facility]) marijuana, cocaine, acid, methamphetamines, speed. Sober since age 20s Hypertension Iron deficiency anemia Lumbar stenosis with neurogenic claudication Mononucleosis Nephrolithiasis PAD (peripheral artery disease) Prediabetes Pure hypercholesterolemia 06/09/2005 Tobacco use Previous Surgical History PAST SURGICAL HISTORY Procedure Laterality Date COLONOSCOPY FLX DX W/COLLJ SPEC WHEN PFRMD 07/23/2013 Colonoscopy COLONOSCOPY FLX DX W/COLLJ SPEC WHEN PFRMD 01/14/2015 Colonoscopy, repeat in 3 years COLONOSCOPY FLX DX W/COLLJ SPEC WHEN PFRMD 10/22/2018 Colonoscopy COLONOSCOPY FLX DX W/COLLJ SPEC WHEN PFRMD 03/2024 repeat 10yrs EGD TRANSORAL BIOPSY SINGLE/MULTIPLE 07/08/2009 ERCP DESTRUCTION/LITHOTRIPSY CALCULI ANY METHOD 2012 ESOPHAGOGASTRODUODENOSCOPY TRANSORAL DIAGNOSTIC 07/23/2013 EGD PAST SURGICAL HISTORY OF 02/2018 L3-4 decompression, TLIF and fusion STEREOTACTIC CORE BIOPSY 02/26/2007 left breast TOTAL ABDOMINAL HYSTERECT W/WO RMVL TUBE OVARY Hysterectomy, SEKOU. precancerous cells Family History FAMILY HISTORY Problem Relation Age of Onset Heart Father from heart attack, age 50 Hyperlipidemia Father Hypertension Father Hypertension Mother Blood Disease Mother ITP Thyroid Sister Cancer Maternal Grandmother colon Heart Paternal Grandfather Heart Paternal Uncle Cancer Maternal Uncle brain Patient Allergies ALLERGIES Allergen Reactions Iodine [Contrast Dy* Swelling PT HAD A REACTION OF SWELLING IN THROAT,TROUBLE BREATHING 24 HRS AFTER INJECTION OF IV DYE FOR A CT UROGRAM. KK Lipitor [Atorvastat* Other: See Comments Skin turned yellow Current Medications Current Outpatient Medications on File Prior to Visit Medication Sig metFORMIN (GLUCOPHAGE) 500 mg tablet Take 1 tablet by mouth two times a day with meals. . budesonide-formoterol (SYMBICORT) 80-4.5 mcg/actuation inhaler Inhale 2 puffs as instructed two times a day. levothyroxine (SYNTHROID) 25 mcg tablet Take 1 tablet by mouth once daily. rosuvastatin (CRESTOR) 20 mg tablet Take 1 tablet by mouth daily at bedtime. lisinopril (ZESTRIL) 10 mg tablet Take 0.5 tablets by mouth once daily. omeprazole (PRILOSEC) 40 mg capsule Take 1 capsule by mouth once daily. DULoxetine (CYMBALTA) 60 mg capsule Take 1 capsule by mouth once daily. patient assistance buPROPion XL (WELLBUTRIN XL) 300 mg 24 hr tablet Take 1 tablet by mouth once daily. pregabalin (LYRICA) 100 mg capsule Take 1 capsule by mouth two times a day for 90 days. Take one capsule three times a day albuterol HFA (VENTOLIN HFA) 90 mcg/actuation inhaler Inhale 2 Puffs as instructed every 4 hours as needed for wheezing/shortness of breath. nitroglycerin sublingual (NITROSTAT) 0.4 mg SL tablet Dissolve 1 tablet under the tongue every 5 minutes as needed for chest pain. traMADol (ULTRAM) 50 mg tablet Take 50 mg by mouth twice daily. Cholecalciferol, Vitamin D3, 2,000 unit cap Take 1 tablet by mouth once daily. No current facility-administered medications on file prior to visit. Social History Social History Tobacco Use Smoking status: Every Day Current packs/day: 0.00 Ty (more content not included)... [facility] 01-27-2025 History of Present illness Narrative Chief Complaint Patient presents with: Rash: Started approx 5 days ago Recording using Jamgo software for draft documentation of the visit was discussed with the patient/authorized admissions representative; all questions welcomed and answered. Patient/authorized admissions representative agreed to proceed HPI Molly Hidalgo is a 64 year old female who presents here today for Above Complaints. Right Elbow Rash: - Rash on right elbow x5 days. - Rash is pruritic, painful, and has raised bumps with clear exudate. - Skin is flaky, similar to previous winter episodes of xerosis on elbows. - No similar rash elsewhere on the body. - No recent exposure to known allergens, chemicals, or irritants. - Denies recent tick bites or contact with poison amy. - No recent changes in medications or detergents. - No associated fevers or chills. - Applied Neosporin and hydrocortisone cream once daily with minimal relief. - Denies wearing any sleeves or coverings on the affected area. Past medical history, appointments, medications, allergies reviewed. Previous Medical History PAST MEDICAL HISTORY Diagnosis Date Abnormal glandular Papanicolaou smear of cervix Abn. Pap smear (cervix) Bulimia Chronic lower back pain Dr. Hall Colon polyps hyperplastic polyp 2014 COPD (chronic obstructive pulmonary disease) (HCC) 02/16/2023 Depression Diaphragmatic hernia without mention of obstruction or gangrene Esophageal reflux 06/09/2005 Family history of coronary artery disease Fatty liver 10/19/2023 Fibromyalgia History of alcohol dependence (HCC) History of drug abuse (HCC) marijuana, cocaine, acid, methamphetamines, speed. Sober since age 20s Hypertension Iron deficiency anemia Lumbar stenosis with neurogenic claudication Mononucleosis Nephrolithiasis PAD (peripheral artery disease) Prediabetes Pure hypercholesterolemia 06/09/2005 Tobacco use Previous Surgical History PAST SURGICAL HISTORY Procedure Laterality Date COLONOSCOPY FLX DX W/COLLJ SPEC WHEN PFRMD 07/23/2013 Colonoscopy COLONOSCOPY FLX DX W/COLLJ SPEC WHEN PFRMD 01/14/2015 Colonoscopy, repeat in 3 years COLONOSCOPY FLX DX W/COLLJ SPEC WHEN PFRMD 10/22/2018 Colonoscopy COLONOSCOPY FLX DX W/COLLJ SPEC WHEN PFRMD 03/2024 repeat 10yrs EGD TRANSORAL BIOPSY SINGLE/MULTIPLE 07/08/2009 ERCP DESTRUCTION/LITHOTRIPSY CALCULI ANY METHOD 2012 ESOPHAGOGASTRODUODENOSCOPY TRANSORAL DIAGNOSTIC 07/23/2013 EGD PAST SURGICAL HISTORY OF 02/2018 L3-4 decompression, TLIF and fusion STEREOTACTIC CORE BIOPSY 02/26/2007 left breast TOTAL ABDOMINAL HYSTERECT W/WO RMVL TUBE OVARY 1980s Hysterectomy, SEKOU. precancerous cells Family History FAMILY HISTORY Problem Relation Age of Onset Heart Father from heart attack, age 50 Hyperlipidemia Father Hypertension Father Hypertension Mother Blood Disease Mother ITP Thyroid Sister Cancer Maternal Grandmother colon Heart Paternal Grandfather Heart Paternal Uncle Cancer Maternal Uncle brain Patient Allergies ALLERGIES Allergen Reactions Iodine [Contrast Dy* Swelling PT HAD A REACTION OF SWELLING IN THROAT,TROUBLE BREATHING 24 HRS AFTER INJECTION OF IV DYE FOR A CT UROGRAM. KK Lipitor [Atorvastat* Other: See Comments Skin turned yellow Current Medications Current Outpatient Medications on File Prior to Visit Medication Sig metFORMIN (GLUCOPHAGE) 500 mg tablet Take 1 tablet by mouth two times a day with meals. . budesonide-formoterol (SYMBICORT) 80-4.5 mcg/actuation inhaler Inhale 2 puffs as instructed two times a day. levothyroxine (SYNTHROID) 25 mcg tablet Take 1 tablet by mouth once daily. rosuvastatin (CRESTOR) 20 mg tablet Take 1 tablet by mouth daily at bedtime. lisinopril (ZESTRIL) 10 mg tablet Take 0.5 tablets by mouth once daily. omeprazole (PRILOSEC) 40 mg capsule Take 1 capsule by mouth once daily. DULoxetine (CYMBALTA) 60 mg capsule Take 1 capsule by mouth once daily. patient assistance buPROPion XL (WELLBUTRIN XL) 300 mg 24 hr tablet Take 1 tablet by mouth once daily. pregabalin (LYRICA) 100 mg capsule Take 1 capsule by mouth two times a day for 90 days. Take one capsule three times a day albuterol HFA (VENTOLIN HFA) 90 mcg/actuation inhaler Inhale 2 Puffs as instructed every 4 hours as needed for wheezing/shortness of breath. nitroglycerin sublingual (NITROSTAT) 0.4 mg SL tablet Dissolve 1 tablet under the tongue every 5 minutes as needed for chest pain. traMADol (ULTRAM) 50 mg tablet Take 50 mg by mouth twice daily. Cholecalciferol, Vitamin D3, 2,000 unit cap Take 1 tablet by mouth once daily. No current facility-administered medications on file prior to visit. Social History Social History Tobacco Use Smoking status: Every Day Current packs/day: 0.00 Types: Cigarettes Start date: 12/09/1967 Last attempt to quit: 12/08/2017 Years since quittin.1 Smokeless tobacco: Never Tobacco comments: Reports 7 cigarettes daily as of 04/09/2024 Vaping Use Vaping status: Never Used Substance Use Topics Alcohol use: Yes Comment: socially Drug use: No Comment: none in many yrs Review of Symptoms REVIEW OF SYSTEMS See HPI EXAM: BP 102/64 Pulse 81 Temp 36.6 C (97.8 F) Resp 18 Wt 62.6 kg (138 lb) LMP 08/02/2005 SpO2 97% BMI 27.27 kg/m General Appearance: Well appearing, alert, in no acute distress, well-hydrated, well nourished.. Skin: raised red rash on right elbow in a semicircle pattern with 8 cm diameter. Vesicles with white exudate present. Non tender. No cellulitis or abscess. . Health Maintenance List Anxiety Screening Never done BP Controlled (<130/80) Never done Advance Directive Discussion Never done LDL Cholesterol due on 06/05/2025 Covid-19 Vaccine( season) due on 06/05/2025 Annual PCP Team Chronic Disease Visit due on 12/03/2025 Mammogram Screening due on 01/09/2026 DTaP,Tdap,Td Vaccine(2 - Td or Tdap) due on 02/21/2026 Diabetes Screening due on 12/04/2027 Lipid Screening due on 06/05/2029 Colorectal Cancer Screening due on 04/09/2034 Bone Density Screening Completed Influenza Vaccine Completed RSV Vaccine Completed Hepatitis C Screening Completed HIV Screening Completed Shingrix Vaccine Completed Pneumococcal Vaccine: 50+ Completed Cervical Cancer Screening Discontinued 1. Dermatitis (L30.9) - Erythematous, pruritic rash on the right elbow with raised bumps and clear exudate, onset 5 days ago. No similar lesions elsewhere. Differential diagnoses include psoriasis, eczema, and Lyme disease. - Prescribed Lotrisone cream, to be applied twice daily for 14 days. - Ordered Lyme disease serology. - Advised to monitor for signs of infection such as fever, chills, or joint swelling; instructed to seek immediate medical attention if these symptoms occur. - Patient to follow up if no improvement after 14 days or if symptoms worsen. - If resolved, recommended use of unscented lotion to elbows and other dry areas twice daily as needed. Christopher B Bursley, MD documented in this encounter [facility] 01-13-2025 Telephone encounter Note Phoned patient went over results, notes from Jessica Palencia CONTROL CLERK with understanding. Assisted with transfer to breast center clinical review nurse to get left breast diagnostic and possible ultrasound appts set up. [facility] 01-13-2025 Miscellaneous Notes Phoned patient went over results, notes from Jessica Palencia CONTROL CLERK with understanding. Assisted with transfer to breast center clinical review nurse to get left breast diagnostic and possible ultrasound appts set up. Please let patient know mammogram shows an architectural distortion in the left breast at 12 o'clock, middle depth requires additional evaluation. Orders for additional imaging placed. Please assist in scheduling. Jessica Palencia APRN.CNP documented in this encounter [facility] 01-13-2025 Telephone encounter Note Please let patient know mammogram shows an architectural distortion in the left breast at 12 o'clock, middle depth requires additional evaluation. Orders for additional imaging placed. Please assist in scheduling. Jessica Palencia APRN.CNP [facility] 01-13-2025 Telephone encounter Note ----- Message from Jessica Palencia APRN.CNP sent at 01/13/2025 7:17 AM EDT ----- Bone density testing shows osteoporosis. Recommend biphosphate medication to help prevent future loss of bone. Also recommend vitamin D 2000 units daily along with calcium 1200 mg daily. Recommend weight bearing exercises- light weight lifting and w alking. If patient would like to start biphosphate let me know. Jessica Palencia APRN.COLD ROLLING SUPERVISOR [facility] 01-13-2025 Miscellaneous Notes ----- Message from Jessica Palencia APRN.COLD ROLLING SUPERVISOR sent at 01/13/2025 7:17 AM EDT ----- Bone density testing shows osteoporosis. Recommend biphosphate medication to help prevent future loss of bone. Also recommend vitamin D 2000 units daily along with calcium 1200 mg daily. Recommend weight bearing exercises- light weight lifting and w alking. If patient would like to start biphosphate let me know. Jessica Palencia APRN.COLD ROLLING SUPERVISOR documented in this encounter [facility] 01-09-2025 Note HNO ID: [id number] Author: CASSANDRA GROVER Mammo Tech Service: ? Author Type: Fund Manager Type: Progress Notes Filed: 01/09/2025 14:54 Note Text: Radiology Service Progress Note PATIENT NAME: Molly Hidalgo DATE OF SERVICE: January 09, 2025 TIME: 2:53 PM PATIENT IDENTITY VERIFICATION COMPLETED USING TWO (2) IDENTIFIERS: Name and Date of confirmed by patient verbally. FALL SCREENING: Has the patient had 2 falls in the last year or 1 fall with injury or currently using an Ambulatory Assistive Device (Walker, Cane, Wheelchair, Crutches, etc.)? No PATIENT GENDER DATA: Assigned female at . status: : No status: NO. PATIENT RELEVANT IMPLANT DATA REVIEWED: Not Applicable PATIENT PRESENTS WITH AN IMPLANTABLE OR ATTACHED SUPERVISOR PARTICLEBOARD: No RADIOLOGY DEPARTMENT: Mammography PERIPHERAL IV DATA: Not applicable SIGNED BY: Margie Zneg January 09, 2025 2:53 PM [facility] 01-09-2025 Note HNO ID: [id number] Author: CHELO DANIEL RT(R) Service: ? Author Type: Technologist Type: Progress Notes Filed: 01/09/2025 14:16 Note Text: Radiology Service Progress Note PATIENT NAME: Molly Hidalgo DATE OF SERVICE: January 09, 2025 TIME: 2:05 PM PATIENT IDENTITY VERIFICATION COMPLETED USING TWO (2) IDENTIFIERS: Name and Date of confirmed by patient verbally. FALL SCREENING: Has the patient had 2 falls in the last year or 1 fall with injury or currently using an Ambulatory Assistive Device (Walker, Cane, Wheelchair, Crutches, etc.)? No PATIENT GENDER DATA: Assigned female at . status: : No status: NO. PATIENT RELEVANT IMPLANT DATA REVIEWED: Not Applicable PATIENT PRESENTS WITH AN IMPLANTABLE OR ATTACHED SUPERVISOR PARTICLEBOARD: No RADIOLOGY DEPARTMENT: Bone Density PERIPHERAL IV DATA: Not applicable SIGNED BY: RT Carol Ann(R) January 09, 2025 2:05 PM [facility] 01-08-2025 Telephone encounter Note Pt states she is almost out of her Metformin. The patient has been identified by name and date of : Yes Caregiver verified no other encounters exist for this prescription request: Yes Caregiver confirmed with patient/requestor that no other refills are due, in the near future, with this provider at this time: Yes The last office visit in the department: 12/03/2024 Does the patient have a future office visit with this provider/department: Yes 06/05/2025 Requested Prescriptions Pending Prescriptions Disp Refills metFORMIN (GLUCOPHAGE) 500 mg tablet 180 tablet 1 Sig: Take 1 tablet by mouth two times a day with meals. . budesonide-formoterol (SYMBICORT) 80-4.5 mcg/actuation inhaler 14 g 5 Sig: Inhale 2 puffs as instructed two times a day. Bing Bryan RN January 08, 2025 9:22 AM [facility] 01-08-2025 Miscellaneous Notes Pt states she is almost out of her Metformin. The patient has been identified by name and date of : Yes Caregiver verified no other encounters exist for this prescription request: Yes Caregiver confirmed with patient/requestor that no other refills are due, in the near future, with this provider at this time: Yes The last office visit in the department: 12/03/2024 Does the patient have a future office visit with this provider/department: Yes 06/05/2025 Requested Prescriptions Pending Prescriptions Disp Refills metFORMIN (GLUCOPHAGE) 500 mg tablet 180 tablet 1 Sig: Take 1 tablet by mouth two times a day with meals. . budesonide-formoterol (SYMBICORT) 80-4.5 mcg/actuation inhaler 14 g 5 Sig: Inhale 2 puffs as instructed two times a day. Bing Bryan RN January 08, 2025 9:22 AM documented in this encounter [facility] 12-09-2024 Telephone encounter Note Pt notified and verbalized understanding Chhaya Pitts MA [facility] 12-09-2024 Miscellaneous Notes Pt notified and verbalized understanding Chhaya Pitts MA Please let patient know her vit d is high. Reduce vitamin d supplementation to twice weekly and recheck in 1 months. documented in this encounter [facility] 12-09-2024 Telephone encounter Note Please let patient know her vit d is high. Reduce vitamin d supplementation to twice weekly and recheck in [address] [facility] 12-06-2024 Telephone encounter Note Patient notified of results, verbalizes understanding of instructions. Tisha Mike LPN [facility] 12-06-2024 Miscellaneous Notes Patient notified of results, verbalizes understanding of instructions. Tisha Mike LPN Vitamin d level is elevated and could develop toxicity if she continues taking such a high dosage. I would recommend stopping the supplement and check vitamin D in 1 month. Patient calls and notified of results and providers instructions. Patient verbalizes understanding. Patient reports that she takes Vitamin D 10,000 units daily. Kalyani Hudson RN Vitamin D is elevated. How much vitamin D is she taking daily? TSH is a little elevated. Recommend we recheck level. The rest of her blood work is in acceptable ranges. Jessica Palencia APRN.KATHLEEN documented in this encounter [facility] 12-05-2024 Telephone encounter Note Vitamin d level is elevated and could develop toxicity if she continues taking such a high dosage. I would recommend stopping the supplement and check vitamin D in [address] [facility] 12-05-2024 Telephone encounter Note Patient calls and notified of results and providers instructions. Patient verbalizes understanding. Patient reports that she takes Vitamin D 10,000 units daily. Kalyani Hudson RN [facility] 12-04-2024 Telephone encounter Note Vitamin D is elevated. How much vitamin D is she taking daily? TSH is a little elevated. Recommend we recheck level. The rest of her blood work is in acceptable ranges. Jessica Palencia APRN.CNP [facility] 12-03-2024 Instructions Jessica Palencia APRN.CNP - 12/03/2024 12:21 PM EDT BONE MINERAL DENSITY PATIENT INSTRUCTIONS ======= Bone mineral density testing measures the amount of calcium in certain parts of your bones. This information determines how strong your bones are. The test is used to detect osteoporosis, a disease in which the bone's mineral content and density are low, increasing a person's risk of fractures. The lumbar spine (lower back) and the hip are the skeletal sites usually examined. For the test, remember that: 1. You cannot take this test if you are . 2. Eat a normal diet on the day of the test. 3. Take your medications as you normally would. 4. DO NOT take calcium supplements (such as Tums) for 24 hours before the test. 5. On the day of the test, leave valuables (jewelry or credit cards) at home. 6. The test should be performed prior to oral, rectal or IV contrast studies, or at least 7 days after any of these studies. For the test, you may be asked to wear a hospital gown. You will lie on your back, on a padded table, in a comfortable position. Generally, you can resume your usual activities immediately. documented in this encounter [facility] 12-03-2024 Note HNO ID: [id number] Author: JESSICA PALENCIA APRN.CNP Service: ? Author Type: Nurse Practitioner Type: Progress Notes Filed: 12/03/2024 13:03 Note Text: 12/03/2024 Patient presents with: F/U 6 months SUBJECTIVE: This is a 64 year old that is here today for Above Complaints. Followed-up with cardiology on 03/11/[address] scan. Has not completed stress test as ordered. HTN: Patient is compliant with meds Yes Monitors bp at home: No. Denies side effects: Yes. Chest pain: No. Dyspnea: No. Edema: No. Palpitations: No. Syncope: No. Headache: No. Dizziness: No. Prediabetes: stays active. Tries to maintain healthy balanced diet. Taking Metformin as prescribed. Denies visual changes, polyuria or polydipsia GERD: taking Omeprazole as prescribed without side effects. Works well to control symptoms HYPERLIPIDEMIA: Patient is taking medications: Yes. Patient is watching diet: Yes. Patient denies myalgias: Yes. Patient denies gi upset: Yes COPD: does not routinely use inhalers. Tobacco use: smoking 4-7 cigarettes a day. Admits to SOB with exertion. Denies cough, wheezing, dyspnea or hemoptysis Depression: taking Wellbutrin as prescribed without side effects. Does not attend counseling. Denies SI or HI Follows with pain management for hx of chronic back pain Feels fatigued quite a lot. Sleeps well. Doesn't thinks she snores. Doesn't feel rested when she gets up PAST MEDICAL HISTORY Diagnosis Date Abnormal glandular Papanicolaou smear of cervix Abn. Pap smear (cervix) Bulimia Chronic lower back pain Dr. Hall Colon polyps hyperplastic polyp 2014 COPD (chronic obstructive pulmonary disease) ([facility]) 02/16/2023 Depression 1980s Diaphragmatic hernia without mention of obstruction or gangrene Esophageal reflux 06/09/2005 Family history of coronary artery disease Fatty liver 10/19/2023 Fibromyalgia History of alcohol dependence ([facility]) History of drug abuse ([facility]) marijuana, cocaine, acid, methamphetamines, speed. Sober since age 20s Hypertension Iron deficiency anemia Lumbar stenosis with neurogenic claudication Mononucleosis Nephrolithiasis PAD (peripheral artery disease) ([facility]) Prediabetes Pure hypercholesterolemia 06/09/2005 Tobacco use ALLERGIES Iodine [Contrast Dye] and Lipitor [Atorvastatin Calcium] MEDICATIONS Current Outpatient Medications Medication Sig rosuvastatin (CRESTOR) 20 mg tablet Take 1 tablet by mouth daily at bedtime. lisinopril (ZESTRIL) 10 mg tablet Take 0.5 tablets by mouth once daily. omeprazole (PRILOSEC) 40 mg capsule Take 1 capsule by mouth once daily. DULoxetine (CYMBALTA) 60 mg capsule Take 1 capsule by mouth once daily. patient assistance buPROPion XL (WELLBUTRIN XL) 300 mg 24 hr tablet Take 1 tablet by mouth once daily. colchicine 0.6 mg tablet Take 2 tabs by mouth, followed by 1 tab one hour later for gout flare. May repeat in 1 week. pregabalin (LYRICA) 100 mg capsule Take 1 capsule by mouth two times a day for 90 days. Take one capsule three times a day metFORMIN (GLUCOPHAGE) 500 mg tablet Take 1 tablet by mouth two times a day with meals. . budesonide-formoterol (SYMBICORT) 80-4.5 mcg/actuation inhaler Inhale 2 Puffs as instructed two times a day. albuterol HFA (VENTOLIN HFA) 90 mcg/actuation inhaler Inhale 2 Puffs as instructed every 4 hours as needed for wheezing/shortness of breath. nitroglycerin sublingual (NITROSTAT) 0.4 mg SL tablet Dissolve 1 tablet under the tongue every 5 minutes as needed for chest pain. traMADol (ULTRAM) 50 mg tablet Take 50 mg by mouth twice daily. Cholecalciferol, Vitamin D3, 2,000 unit cap Take 1 tablet by mouth once daily. No current facility-administered medications for this visit. Medications and allergies reviewed by this provider. SOCIAL HISTORY Social History Tobacco Use Smoking status: Every Day Current packs/day: 0.00 Types: Cigarettes Start date: 12/09/1967 Last attempt to quit: 12/08/2017 Years since quittin.9 Smokeless tobacco: Never Tobacco comments: Reports 7 cigarettes daily as of 04/09/2024 Vaping Use Vaping status: Never Used Substance Use Topics Alcohol use: Yes Comment: socially Drug use: No Comment: none in many yrs REVIEW OF SYSTEMS All other reviewed and negative other than HPI. OBJECTIVE: BP 126/84 Pulse 80 Resp 18 Wt 60.9 kg (134 lb 4.2 oz) LMP 08/02/2005 SpO2 94% BMI 26.53 kg/m? . Vital signs reviewed by this provider. APPEARANCE Well appearing, alert, in no acute distress, well-hydrated, well nourished. EYES conjunctiva and sclera normal. HEART RRR with normal S1 and S2, no murmurs, no gallops, no JVD appreciated LUNG clear to auscultation. No wheezes, rhonchi or rales EXTREMITIES Extremities normal, No deformities, No skin discoloration, and No edema SKIN Skin color, texture, turgor normal, no suspicious rashes or lesions to exposed skin Latest Ref Rng (more content not included)... [facility] 12-03-2024 History of Present illness Narrative 12/03/2024 Patient presents with: F/U 6 months SUBJECTIVE: This is a 64 year old that is here today for Above Complaints. Followed-up with cardiology on 03/11/[address] scan. Has not completed stress test as ordered. HTN: Patient is compliant with meds Yes Monitors bp at home: No. Denies side effects: Yes. Chest pain: No. Dyspnea: No. Edema: No. Palpitations: No. Syncope: No. Headache: No. Dizziness: No. Prediabetes: stays active. Tries to maintain healthy balanced diet. Taking Metformin as prescribed. Denies visual changes, polyuria or polydipsia GERD: taking Omeprazole as prescribed without side effects. Works well to control symptoms HYPERLIPIDEMIA: Patient is taking medications: Yes. Patient is watching diet: Yes. Patient denies myalgias: Yes. Patient denies gi upset: Yes COPD: does not routinely use inhalers. Tobacco use: smoking 4-7 cigarettes a day. Admits to SOB with exertion. Denies cough, wheezing, dyspnea or hemoptysis Depression: taking Wellbutrin as prescribed without side effects. Does not attend counseling. Denies SI or HI Follows with pain management for hx of chronic back pain Feels fatigued quite a lot. Sleeps well. Doesn't thinks she snores. Doesn't feel rested when she gets up PAST MEDICAL HISTORY Diagnosis Date Abnormal glandular Papanicolaou smear of cervix Abn. Pap smear (cervix) Bulimia Chronic lower back pain Dr. Hall Colon polyps hyperplastic polyp 2014 COPD (chronic obstructive pulmonary disease) ([facility]) 02/16/2023 Depression Diaphragmatic hernia without mention of obstruction or gangrene Esophageal reflux 06/09/2005 Family history of coronary artery disease Fatty liver 10/19/2023 Fibromyalgia History of alcohol dependence ([facility]) History of drug abuse ([facility]) marijuana, cocaine, acid, methamphetamines, speed. Sober since age 20s Hypertension Iron deficiency anemia Lumbar stenosis with neurogenic claudication Mononucleosis Nephrolithiasis PAD (peripheral artery disease) ([facility]) Prediabetes Pure hypercholesterolemia 06/09/2005 Tobacco use ALLERGIES Iodine [Contrast Dye] and Lipitor [Atorvastatin Calcium] MEDICATIONS Current Outpatient Medications Medication Sig rosuvastatin (CRESTOR) 20 mg tablet Take 1 tablet by mouth daily at bedtime. lisinopril (ZESTRIL) 10 mg tablet Take 0.5 tablets by mouth once daily. omeprazole (PRILOSEC) 40 mg capsule Take 1 capsule by mouth once daily. DULoxetine (CYMBALTA) 60 mg capsule Take 1 capsule by mouth once daily. patient assistance buPROPion XL (WELLBUTRIN XL) 300 mg 24 hr tablet Take 1 tablet by mouth once daily. colchicine 0.6 mg tablet Take 2 tabs by mouth, followed by 1 tab one hour later for gout flare. May repeat in 1 week. pregabalin (LYRICA) 100 mg capsule Take 1 capsule by mouth two times a day for 90 days. Take one capsule three times a day metFORMIN (GLUCOPHAGE) 500 mg tablet Take 1 tablet by mouth two times a day with meals. . budesonide-formoterol (SYMBICORT) 80-4.5 mcg/actuation inhaler Inhale 2 Puffs as instructed two times a day. albuterol HFA (VENTOLIN HFA) 90 mcg/actuation inhaler Inhale 2 Puffs as instructed every 4 hours as needed for wheezing/shortness of breath. nitroglycerin sublingual (NITROSTAT) 0.4 mg SL tablet Dissolve 1 tablet under the tongue every 5 minutes as needed for chest pain. traMADol (ULTRAM) 50 mg tablet Take 50 mg by mouth twice daily. Cholecalciferol, Vitamin D3, 2,000 unit cap Take 1 tablet by mouth once daily. No current facility-administered medications for this visit. Medications and allergies reviewed by this provider. SOCIAL HISTORY Social History Tobacco Use Smoking status: Every Day Current packs/day: 0.00 Types: Cigarettes Start date: 12/09/1968 Last attempt to quit: 12/08/2017 Years since quittin.9 Smokeless tobacco: Never Tobacco comments: Reports 7 cigarettes daily as of 04/09/2024 Vaping Use Vaping status: Never Used Substance Use Topics Alcohol use: Yes Comment: socially Drug use: No Comment: none in many yrs REVIEW OF SYSTEMS All other reviewed and negative other than HPI. OBJECTIVE: BP 126/84 Pulse 80 Resp 18 Wt 60.9 kg (134 lb 4.2 oz) LMP 08/02/2005 SpO2 94% BMI 26.53 kg/m . Vital signs reviewed by this provider. APPEARANCE Well appearing, alert, in no acute distress, well-hydrated, well nourished. EYES conjunctiva and sclera normal. HEART RRR with normal S1 and S2, no murmurs, no gallops, no JVD appreciated LUNG clear to auscultation. No wheezes, rhonchi or rales EXTREMITIES Extremities normal, No deformities, No skin discoloration, and No edema SKIN Skin color, texture, turgor normal, no suspicious rashes or lesions to exposed skin Latest Ref Rng 06/05/2024 WBC 3.70 - 11.00 k/uL 14.29 (H) RBC 3.90 - 5.20 m/uL 4.56 Hemoglobin 11.5 - 15.5 g/dL 13.7 Hematocrit 36.0 - 46.0 % 43.5 MCV 80.0 - 100.0 fL 95.4 MCH 26.0 - 34.0 pg 30.0 MCHC 30.5 - 36.0 g/dL 31.5 RDW-CV 11.5 - 15.0 % 12.5 Platelet Count 150 - 400 k/uL 323 MPV 9.0 - 12.7 fL 9.8 Neut% % 56.9 Abs Neut (ANC) 1.45 - 7.50 k/uL 8.13 (H) Lymph% % 27.2 Abs Lymph 1.00 - 4.00 k/uL 3.88 [place]% % 7.9 Abs [place] <0.87 k/uL 1.13 (H) Eosin% % 6.6 Abs Eosin <0.46 k/uL 0.94 (H) Baso% % 0.8 Abs Baso <0.11 k/uL 0.12 (H) Immature Gran % % 0.6 IMMATURE GRANS (ABS) <0.10 k/uL 0.09 NRBC /100 WBC 0.0 Absolute nRBC <0.01 k/uL <0.01 DTYPE Auto Cholesterol, Total <200 mg/dL 156 Triglyceride <150 mg/dL 276 (H) HDL Cholesterol >39 mg/dL 53 Non HDL Cholesterol <130 mg/dL 103 Fasting Time hrs 15 VLDL Cholesterol <30 mg/dL 55 (H) TC:HDL Ratio <5.10 2.94 LDL Cholesterol <100 mg/dL 48 LDL:HDL Ratio <2.54 0.91 Hemoglobin A1C 4.3 - 5.6 % 5.8 (H) Estimated Average Glucose mg/dL 120 Legend: (H) High Anxiety Screening Never done BP Controlled (<130/80) Never done Alpha-1 Antitrypsin Deficiency Screening Never done Mammogram Screening due on 06/13/2024 Pneumococcal Vaccine: 50+(3 of 3 - PCV20 or PCV21) due on 08/21/2024 Covid-19 Vaccine(2023- season) due on 08/22/2024 Bone Density Screening Never done Advance Directive Discussion Never done LDL Cholesterol due on 06/05/2025 Annual PCP Team Chronic Disease Visit due on 12/03/2025 DTaP,Tdap,Td Vaccine(2 - Td or Tdap) due on 02/21/2026 Diabetes Screening due on 06/05/2027 Lipid Screening due on 06/05/2029 Colorectal Cancer Screening due on 04/09/2034 Spirometry Completed Influenza Vaccine Completed RSV Vaccine Completed Hepatitis C Screening Completed HIV Screening Completed Shingrix Vaccine Completed Cervical Cancer Screening Discontinued ASSESSMENT/PLAN: 1. Essential hypertension - ICD9: 401.9, ICD10: I10 (primary diagnosis) - Controlled - Continue current medications - Recommend home blood pressure monitoring, to bring results to next visit - Encouraged sodium restriction, DASH or Mediterranean diet - Recommend regular aerobic exercise - Smoking cessation encouraged; discussed risks to health and quitting strategies. Patient is not ready to quit - Follow up in 6 months for hypertension visit - COMPREHENSIVE METABOLIC PANEL 2. Hyperlipidemia, mixed - ICD9: 272.2, ICD10: E78.2 - Controlled - Continue current medications - Counseled on healthy diet and regular exercise - Follow up in 6 months, sooner should any other issues arise. - COMPREHENSIVE METABOLIC PANEL 3. Encounter for screening mammogram for breast cancer - ICD9: V76.12, ICD10: Z12.31 - EDDY SCREENING W ROXANNE 4. Asymptomatic menopause - ICD9: V49.81, ICD10: Z78.0 - DXA-AXIAL SKELETON - BD DXA TRABECULAR BONE SCORE (TBS) 5. Encounter for screening for osteoporosis - ICD9: V82.81, ICD10: Z13.820 - plan as in #4 6. Encounter for immunization - ICD9: V03.89, ICD10: Z23 - PNEUMOCOCCAL VACCINE, 20 VALENT (PREVNAR 20) - [employer] COVID-19 VACCINE AGE 12+ YR (COMIRNATY) 7. Fatigue, unspecified type - ICD9: 780.79, ICD10: R53.83 - THYROID STIMULATING HORMONE - COMPLETE BLOOD COUNT AND DIFFERENTIAL - VITAMIN B12 - VITAMIN D 25 HYDROXY 8. Vitamin D insufficiency - ICD9: 268.9, ICD10: E55.9 - VITAMIN D 25 HYDROXY 9. Tobacco use disorder - ICD9: 305.1, ICD10: F17.200 - Cessation encouraged. - Physiologic and physical aspects of tobacco addiction as well as strategies for quitting were discussed. - Counseling was given focusing on the harmful effects of this addiction especially given the patient's medical condition(s) which will be worsened because of the chemicals in tobacco. 10. Coronary artery calcification - ICD9: 414.00, ICD10: I25.10 - recommend she complete stress test 11. Chronic obstructive pulmonary disease, unspecified COPD type (HCC) - ICD9: 496, ICD10: J44.9 - stable - continue inhalers as prescribed 12. Prediabetes - ICD9: 790.29, ICD10: R73.03 - continue Metformin, diet and exercise Jessica Palencia APRN.CNP Prescription instructions reviewed with patient as applicable. Patient advised if symptoms do not improve or if symptoms worsen sooner, to contact their primary care physician. Potential red flag symptoms discussed with the patient. Reviewed appropriate action plan to take if red flag symptoms occur. Patient agreeable to treatment plan. Medical Decision Making: Problems: Moderate: 2+ stable chronic illnesses Data: Unique test(s) ordered: 3+ Risk: Moderate: Moderate risk from testing/treatment Medical Decision Making Level: 4 - Moderate documented in this encounter [facility] 11-01-2024 Telephone encounter Note Prescription Refill Information The patient has been identified by name and date of : Yes Caregiver verified no other encounters exist for this prescription request: Yes Caregiver confirmed with patient/requestor that no other refills are due, in the near future, with this provider at this time: Yes The last office visit in the department: 06/05/2025 Does the patient have a future office visit with this provider/department: Yes Requested Prescriptions Pending Prescriptions Disp Refills rosuvastatin (CRESTOR) 20 mg tablet 90 tablet 1 Sig: Take 1 tablet by mouth daily at bedtime. Debi Caicedo November 01, 2024 2:[address] [facility] 11-01-2024 Miscellaneous Notes Prescription Refill Information The patient has been identified by name and date of : Yes Caregiver verified no other encounters exist for this prescription request: Yes Caregiver confirmed with patient/requestor that no other refills are due, in the near future, with this provider at this time: Yes The last office visit in the department: 06/05/2025 Does the patient have a future office visit with this provider/department: Yes Requested Prescriptions Pending Prescriptions Disp Refills rosuvastatin (CRESTOR) 20 mg tablet 90 tablet 1 Sig: Take 1 tablet by mouth daily at bedtime. Debi Caicedo November 01, 2024 2:11 PM documented in this encounter [facility] 09-24-2024 Telephone encounter Note Prescription Refill Information The patient has been identified by name and date of : Yes Caregiver verified no other encounters exist for this prescription request: Yes Caregiver confirmed with patient/requestor that no other refills are due, in the near future, with this provider at this time: Yes The last office visit in the department: 06/05/24 Does the patient have a future office visit with this provider/department: Yes Requested Prescriptions Pending Prescriptions Disp Refills lisinopril (ZESTRIL) 10 mg tablet 45 tablet 3 Sig: Take 0.5 tablets by mouth once daily. omeprazole (PRILOSEC) 40 mg capsule 90 capsule 3 Sig: Take 1 capsule by mouth once daily. DULoxetine (CYMBALTA) 60 mg capsule 90 capsule 3 Sig: Take 1 capsule by mouth once daily. patient assistance buPROPion XL (WELLBUTRIN XL) 300 mg 24 hr tablet 90 tablet 3 Sig: Take 1 tablet by mouth once daily. Nneka Tena [facility] September 24, 2024 10:[address] [facility] 09-24-2024 Miscellaneous Notes Prescription Refill Information The patient has been identified by name and date of : Yes Caregiver verified no other encounters exist for this prescription request: Yes Caregiver confirmed with patient/requestor that no other refills are due, in the near future, with this provider at this time: Yes The last office visit in the department: 06/05/24 Does the patient have a future office visit with this provider/department: Yes Requested Prescriptions Pending Prescriptions Disp Refills lisinopril (ZESTRIL) 10 mg tablet 45 tablet 3 Sig: Take 0.5 tablets by mouth once daily. omeprazole (PRILOSEC) 40 mg capsule 90 capsule 3 Sig: Take 1 capsule by mouth once daily. DULoxetine (CYMBALTA) 60 mg capsule 90 capsule 3 Sig: Take 1 capsule by mouth once daily. patient assistance buPROPion XL (WELLBUTRIN XL) 300 mg 24 hr tablet 90 tablet 3 Sig: Take 1 tablet by mouth once daily. Nneka Tena [facility] September 24, 2024 10:20 AM documented in this encounter [facility] 08-19-2024 Note HNO ID: [id number] Author: ALEXANDRA BASSETT MA Service: ? Author Type: Tapper Balance Wheel Screw Hole Type: Progress Notes Filed: 08/19/2024 13:53 Note Text: POPULATION HEALTH NAVIGATION OUTREACH Action/FYI Some one answer the phone and hung up adFreeq message Topic Due (Y or N) Comments Medicare Wellness PCP Follow up Mammogram Y Colorectal Cancer Screening A1C Dilated Retinal Exam (HAIDER) KED (UACR and eGFR) HCC Y Flu Vaccine Care Everywhere Reviewed Neocleust Activation Updated Appointment Note Reason for Outreach Care Gap/HCC or Scheduling Wellness Visits Care Gaps due: Medicare Annual Wellness Visit Patient Contacted: Unable or unnecessary to reach patient: Unable to leave message Joust message sent HCC related Navigation Signature: lAexandra Bassett MA August 19, 2024 7:55 AM [facility] 08-19-2024 History of Present illness Narrative POPULATION HEALTH NAVIGATION OUTREACH Action/FYI Some one answer the phone and hung up mychart message Topic Due (Y or N) Comments Medicare Wellness PCP Follow up Mammogram Y Colorectal Cancer Screening A1C Dilated Retinal Exam (HAIDER) KED (UACR and eGFR) HCC Y Flu Vaccine Care Everywhere Reviewed MyChart Activation Updated Appointment Note Reason for Outreach Care Gap/HCC or Scheduling Wellness Visits Care Gaps due: Medicare Annual Wellness Visit Patient Contacted: Unable or unnecessary to reach patient: Unable to leave message MyChart message sent HCC related Navigation Signature: Alexandra Bassett MA August 19, 2024 7:55 AM documented in this encounter [facility] 08-19-2024 Note Patient Outreach (NE TNAV) MOLLY HIDALGO ([id number]) 1960 F Date Time Provider Department 08/19/24 ALEXANDRA BASSETT NETNAV During your visit today, we recorded the following information about you: Alexandra Bassett MA 08/19/2024 1:53 PM Signed POPULATION HEALTH NAVIGATION OUTREACH Action/FYI Some one answer the phone and hung up mychart message Topic Due (Y or N) Comments Medicare Wellness PCP Follow up Mammogram Y Colorectal Cancer Screening A1C Dilated Retinal Exam (HAIDER) KED (UACR and eGFR) HCC Y Flu Vaccine Care Everywhere Reviewed MyChart Activation Updated Appointment Note Reason for Outreach Care Gap/HCC or Scheduling Wellness Visits Care Gaps due: Medicare Annual Wellness Visit Patient Contacted: Unable or unnecessary to reach patient: Unable to leave message MyChart message sent HCC related Navigation Signature: Alexandra Bassett MA August 19, 2024 7:55 AM Allergies As of Date: 08/19/2024 Noted Allergy Reaction IODINE (CONTRAST DYE) 01/17/2012 7 - Swelling Comments: PT HAD A REACTION OF SWELLING IN THROAT,TROUBLE BREATHING 24 HRS AFTER INJECTION OF IV DYE FOR A CT UROGRAM. KK LIPITOR (ATORVASTATIN CALCIUM) 14 - Other: See Comments Comments: Skin turned yellow Date Reviewed: 06/05/2024 Reviewed by: Trista Espinosa LPN - Fully Assessed Reason for Visit: Population Health Navigation Outreach [3910] Cmt: [facility] Prescriptions as of 08/19/2024 - colchicine 0.6 mg tablet Take 2 tabs by mouth, followed by 1 tab one hour later for gout flare. May repeat in 1 week. - pregabalin (LYRICA) 100 mg capsule Take 1 capsule by mouth two times a day for 90 days. Take one capsule three times a day - metFORMIN (GLUCOPHAGE) 500 mg tablet Take 1 tablet by mouth two times a day with meals. . - DULoxetine (CYMBALTA) 60 mg capsule Take 1 capsule by mouth once daily. patient assistance - buPROPion XL (WELLBUTRIN XL) 300 mg 24 hr tablet Take 1 tablet by mouth once daily. - rosuvastatin (CRESTOR) 20 mg tablet Take 1 tablet by mouth daily at bedtime. - budesonide-formoterol (SYMBICORT) 80-4.5 mcg/actuation inhaler Inhale 2 Puffs as instructed two times a day. - albuterol HFA (VENTOLIN HFA) 90 mcg/actuation inhaler Inhale 2 Puffs as instructed every 4 hours as needed for wheezing/shortness of breath. - lisinopril (ZESTRIL) 10 mg tablet Take 0.5 tablets by mouth once daily. - omeprazole (PRILOSEC) 40 mg capsule Take 1 capsule by mouth once daily. - nitroglycerin sublingual (NITROSTAT) 0.4 mg SL tablet Dissolve 1 tablet under the tongue every 5 minutes as needed for chest pain. - traMADol (ULTRAM) 50 mg tablet Take 50 mg by mouth twice daily. - Cholecalciferol, Vitamin D3, 2,000 unit cap Take 1 tablet by mouth once daily. Meds Comments as of 06/29/2012: Problem List As Of Date 08/19/2024 Noted Resolved Pure hypercholesterolemia [E78.00] 06/09/2005 08/17/2018 ESOPHAGEAL REFLUX [K21.9] 06/09/2005 Other and unspecified alcohol dependence, unspe* 03/15/2023 PMH - PAST MEDICAL HISTORY OF 08/17/2018 CHEST PAIN ANTERIOR CHEST WALL [R07.1] 02/09/2006 08/17/2018 TOBACCO USE DISORDER [F17.200] 02/09/2006 BULIMIA NERVOSA [F50.20] 02/09/2006 ADJUSTMENT DISORDER WITH DEPRESSED MOOD [F43.21]02/03/2009 Diaphragmatic Hernia without Mention of Obstruc*07/08/2009 Bulimia [F50.20] 07/08/2009 08/17/2018 Acute gastritis without mention of hemorrhage [*07/08/2009 08/17/2018 Hypertension [I10] 06/23/2011 Kidney stones [N20.0] 01/10/2012 08/17/2018 Right flank pain [R10.9] 01/10/2012 Hypertriglyceridemia [E78.1] 08/31/2012 08/17/2018 OCD (obsessive compulsive disorder) [F42.9] 12/25/2013 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] 12/25/2013 Nephrolithiasis [N20.0] 12/25/2013 Fibromyalgia [M79.7] 05/14/2016 Alcohol dependence (HCC) [F10.20] 08/17/2016 03/15/2023 Spinal stenosis, lumbar region with neurogenic *01/10/2018 Spondylolisthesis of lumbar region [M43.16] 01/10/2018 Lumbar stenosis with neurogenic claudication [M*02/22/2018 Acute postoperative pain [G89.18] 02/23/2018 Hyperlipidemia, mixed [E78.2] 08/17/2018 Depression [F32.A] History of alcohol dependence (HCC) [F10.21] 03/15/2023 Iron deficiency anemia [D50.9] COPD (chronic obstructive pulmonary disease) (H*02/16/2023 Encounter Status:Closed by ALEXANDRA BASSETT on 08/19/24 [facility] 07-29-2024 Note HNO ID: [id number] Author: CARRINO, PENELOPE, RN Service: ? Author Type: Registered Nurse Type: Progress Notes Filed: 07/29/2024 09:02 Note Text: ACTiffany CARLOS RN Reason for review or outreach: Medication Adherence review per request of payer Medication Adherence Review Details: Hypertension and Diabetes FYI / ACTION REQUEST: Patient identified by name and date of Summary/Findings of review: LISINOPRIL TAB 10MG was due for refill on 06/14/24 at [facility] pharmacy METFORMIN TAB 500MG is due for refill on 08/06/24 at [facility] pharmacy Patient Attributed To: QAE Payer: [employer] Action Taken: Data submitted to Flipps message to patient Contact made with patient: No, Chart review only. Signature: Penelope Ervin RN [facility] 07-29-2024 History of Present illness Narrative ACTiffany CARLOS RN Reason for review or outreach: Medication Adherence review per request of payer Medication Adherence Review Details: Hypertension and Diabetes FYI / ACTION REQUEST: Patient identified by name and date of Summary/Findings of review: LISINOPRIL TAB 10MG was due for refill on 06/14/24 at [facility] pharmacy METFORMIN TAB 500MG is due for refill on 08/06/24 at [facility] pharmacy Patient Attributed To: QAE Payer: [employer] [place] Action Taken: Data submitted to Flipps message to patient Contact made with patient: No, Chart review only. Signature: Penelope Ervin RN documented in this encounter [facility] 07-29-2024 Note Patient Outreach (NE TNAV) MOLLY HIDALGO ([id number]) 1960 F Date Time Provider Department 07/29/24 PENELOPE ERVIN During your visit today, we recorded the following information about you: Penelope Ervin RN 07/29/2024 9:02 AM Signed ACM CARLOS RN Reason for review or outreach: Medication Adherence review per request of payer Medication Adherence Review Details: Hypertension and Diabetes FYI / ACTION REQUEST: Patient identified by name and date of Summary/Findings of review: LISINOPRIL TAB 10MG was due for refill on 06/14/24 at [facility] pharmacy METFORMIN TAB 500MG is due for refill on 08/06/24 at [facility] pharmacy Patient Attributed To: QAE Payer: [employer] [place] Action Taken: Data submitted to Flipps message to patient Contact made with patient: No, Chart review only. Signature: Penelope Ervin RN Allergies As of Date: 07/29/2024 Noted Allergy Reaction IODINE (CONTRAST DYE) 01/17/2012 7 - Swelling Comments: PT HAD A REACTION OF SWELLING IN THROAT,TROUBLE BREATHING 24 HRS AFTER INJECTION OF IV DYE FOR A CT UROGRAM. KK LIPITOR (ATORVASTATIN CALCIUM) 14 - Other: See Comments Comments: Skin turned yellow Date Reviewed: 06/05/2024 Reviewed by: Trista Espinosa LPN - Fully Assessed Reason for Visit: ACM CARLOS RN [[id number]] Cmt: Medication Adherence Review at request of payer Prescriptions as of 07/29/2024 - colchicine 0.6 mg tablet Take 2 tabs by mouth, followed by 1 tab one hour later for gout flare. May repeat in 1 week. - pregabalin (LYRICA) 100 mg capsule Take 1 capsule by mouth two times a day for 90 days. Take one capsule three times a day - metFORMIN (GLUCOPHAGE) 500 mg tablet Take 1 tablet by mouth two times a day with meals. . - DULoxetine (CYMBALTA) 60 mg capsule Take 1 capsule by mouth once daily. patient assistance - buPROPion XL (WELLBUTRIN XL) 300 mg 24 hr tablet Take 1 tablet by mouth once daily. - rosuvastatin (CRESTOR) 20 mg tablet Take 1 tablet by mouth daily at bedtime. - budesonide-formoterol (SYMBICORT) 80-4.5 mcg/actuation inhaler Inhale 2 Puffs as instructed two times a day. - albuterol HFA (VENTOLIN HFA) 90 mcg/actuation inhaler Inhale 2 Puffs as instructed every 4 hours as needed for wheezing/shortness of breath. - lisinopril (ZESTRIL) 10 mg tablet Take 0.5 tablets by mouth once daily. - omeprazole (PRILOSEC) 40 mg capsule Take 1 capsule by mouth once daily. - nitroglycerin sublingual (NITROSTAT) 0.4 mg SL tablet Dissolve 1 tablet under the tongue every 5 minutes as needed for chest pain. - traMADol (ULTRAM) 50 mg tablet Take 50 mg by mouth twice daily. - Cholecalciferol, Vitamin D3, 2,000 unit cap Take 1 tablet by mouth once daily. Meds Comments as of 06/29/2012: Problem List As Of Date 07/29/2024 Noted Resolved Pure hypercholesterolemia [E78.00] 06/09/2005 08/17/2018 ESOPHAGEAL REFLUX [K21.9] 06/09/2005 Other and unspecified alcohol dependence, unspe* 03/15/2023 PMH - PAST MEDICAL HISTORY OF 08/17/2018 CHEST PAIN ANTERIOR CHEST WALL [R07.1] 02/09/2006 08/17/2018 TOBACCO USE DISORDER [F17.200] 02/09/2006 BULIMIA NERVOSA [F50.20] 02/09/2006 ADJUSTMENT DISORDER WITH DEPRESSED MOOD [F43.21]02/03/2009 Diaphragmatic Hernia without Mention of Obstruc*07/08/2009 Bulimia [F50.20] 07/08/2009 08/17/2018 Acute gastritis without mention of hemorrhage [*07/08/2009 08/17/2018 Hypertension [I10] 06/23/2011 Kidney stones [N20.0] 01/10/2012 08/17/2018 Right flank pain [R10.9] 01/10/2012 Hypertriglyceridemia [E78.1] 08/31/2012 08/17/2018 OCD (obsessive compulsive disorder) [F42.9] 12/25/2013 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] 12/25/2013 Nephrolithiasis [N20.0] 12/25/2013 Fibromyalgia [M79.7] 05/14/2016 Alcohol dependence (HCC) [F10.20] 08/17/2016 03/15/2023 Spinal stenosis, lumbar region with neurogenic *01/10/2018 Spondylolisthesis of lumbar region [M43.16] 01/10/2018 Lumbar stenosis with neurogenic claudication [M*02/22/2018 Acute postoperative pain [G89.18] 02/23/2018 Hyperlipidemia, mixed [E78.2] 08/17/2018 Depression [F32.A] History of alcohol dependence (HCC) [F10.21] 03/15/2023 Iron deficiency anemia [D50.9] COPD (chronic obstructive pulmonary disease) (H*02/16/2023 Encounter Status:Closed by PENELOPE ERVIN on 07/29/24 [facility] 07-18-2024 Note HNO ID: [id number] Author: ALEXANDRA BASSETT MA Service: ? Author Type: Tapper Balance Wheel Screw Hole Type: Progress Notes Filed: 07/18/2024 16:21 Note Text: POPULATION HEALTH NAVIGATION OUTREACH Action/[employer] message sent NEEDS MAMMOGRAMS FLIP APPOINTMENT ON 12-03-24 TO [facility] Reason for Outreach Care Gap/HCC or Scheduling Wellness Visits Care Gaps due: Medicare Annual Wellness Visit Breast Cancer Screening Patient Contacted: Unable or unnecessary to reach patient: Flipped existing appointment Patient already scheduled Updated appointment notes Navigation Signature: Alexandra Bassett MA July 18, 2024 12:04 PM [facility] 07-18-2024 History of Present illness Narrative POPULATION HEALTH NAVIGATION OUTREACH Action/[employer] message sent NEEDS MAMMOGRAMS FLIP APPOINTMENT ON 12-03-24 TO [facility] Reason for Outreach Care Gap/HCC or Scheduling Wellness Visits Care Gaps due: Medicare Annual Wellness Visit Breast Cancer Screening Patient Contacted: Unable or unnecessary to reach patient: Flipped existing appointment Patient already scheduled Updated appointment notes Navigation Signature: Alexandra Bassett MA July 18, 2024 12:04 PM documented in this encounter [facility] 07-18-2024 Note Patient Outreach (TRENA TNAV) MOLLY HIDALGO ([id number]) 1960 F Date Time Provider Department 07/18/24 ALEXANDRA BASSETT NETNAV During your visit today, we recorded the following information about you: Alexandra Bassett MA 07/18/2024 4:21 PM Signed POPULATION HEALTH NAVIGATION OUTREACH Action/RICKIE Gonsales joaniet message sent NEEDS MAMMOGRAMS FLIP APPOINTMENT ON 12-03-24 TO [facility] Reason for Outreach Care Gap/HCC or Scheduling Wellness Visits Care Gaps due: Medicare Annual Wellness Visit Breast Cancer Screening Patient Contacted: Unable or unnecessary to reach patient: Flipped existing appointment Patient already scheduled Updated appointment notes Navigation Signature: Alexandra Bassett MA July 18, 2024 12:04 PM Allergies As of Date: 07/18/2024 Noted Allergy Reaction IODINE (CONTRAST DYE) 01/17/2012 7 - Swelling Comments: PT HAD A REACTION OF SWELLING IN THROAT,TROUBLE BREATHING 24 HRS AFTER INJECTION OF IV DYE FOR A CT UROGRAM. KK LIPITOR (ATORVASTATIN CALCIUM) 14 - Other: See Comments Comments: Skin turned yellow Date Reviewed: 06/05/2024 Reviewed by: Trista Espinosa LPN - Fully Assessed Reason for Visit: Population Health Navigation Outreach [3910] Cmt: [facility] Prescriptions as of 07/18/2024 - colchicine 0.6 mg tablet Take 2 tabs by mouth, followed by 1 tab one hour later for gout flare. May repeat in 1 week. - pregabalin (LYRICA) 100 mg capsule Take 1 capsule by mouth two times a day for 90 days. Take one capsule three times a day - metFORMIN (GLUCOPHAGE) 500 mg tablet Take 1 tablet by mouth two times a day with meals. . - DULoxetine (CYMBALTA) 60 mg capsule Take 1 capsule by mouth once daily. patient assistance - buPROPion XL (WELLBUTRIN XL) 300 mg 24 hr tablet Take 1 tablet by mouth once daily. - rosuvastatin (CRESTOR) 20 mg tablet Take 1 tablet by mouth daily at bedtime. - budesonide-formoterol (SYMBICORT) 80-4.5 mcg/actuation inhaler Inhale 2 Puffs as instructed two times a day. - albuterol HFA (VENTOLIN HFA) 90 mcg/actuation inhaler Inhale 2 Puffs as instructed every 4 hours as needed for wheezing/shortness of breath. - lisinopril (ZESTRIL) 10 mg tablet Take 0.5 tablets by mouth once daily. - omeprazole (PRILOSEC) 40 mg capsule Take 1 capsule by mouth once daily. - nitroglycerin sublingual (NITROSTAT) 0.4 mg SL tablet Dissolve 1 tablet under the tongue every 5 minutes as needed for chest pain. - traMADol (ULTRAM) 50 mg tablet Take 50 mg by mouth twice daily. - Cholecalciferol, Vitamin D3, 2,000 unit cap Take 1 tablet by mouth once daily. Meds Comments as of 06/29/2012: Problem List As Of Date 07/18/2024 Noted Resolved Pure hypercholesterolemia [E78.00] 06/09/2005 08/17/2018 ESOPHAGEAL REFLUX [K21.9] 06/09/2005 Other and unspecified alcohol dependence, unspe* 03/15/2023 PMH - PAST MEDICAL HISTORY OF 08/17/2018 CHEST PAIN ANTERIOR CHEST WALL [R07.1] 02/09/2006 08/17/2018 TOBACCO USE DISORDER [F17.200] 02/09/2006 BULIMIA NERVOSA [F50.20] 02/09/2006 ADJUSTMENT DISORDER WITH DEPRESSED MOOD [F43.21]02/03/2009 Diaphragmatic Hernia without Mention of Obstruc*07/08/2009 Bulimia [F50.20] 07/08/2009 08/17/2018 Acute gastritis without mention of hemorrhage [*07/08/2009 08/17/2018 Hypertension [I10] 06/23/2011 Kidney stones [N20.0] 01/10/2012 08/17/2018 Right flank pain [R10.9] 01/10/2012 Hypertriglyceridemia [E78.1] 08/31/2012 08/17/2018 OCD (obsessive compulsive disorder) [F42.9] 12/25/2013 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] 12/25/2013 Nephrolithiasis [N20.0] 12/25/2013 Fibromyalgia [M79.7] 05/14/2016 Alcohol dependence (HCC) [F10.20] 08/17/2016 03/15/2023 Spinal stenosis, lumbar region with neurogenic *01/10/2018 Spondylolisthesis of lumbar region [M43.16] 01/10/2018 Lumbar stenosis with neurogenic claudication [M*02/22/2018 Acute postoperative pain [G89.18] 02/23/2018 Hyperlipidemia, mixed [E78.2] 08/17/2018 Depression [F32.A] History of alcohol dependence (HCC) [F10.21] 03/15/2023 Iron deficiency anemia [D50.9] COPD (chronic obstructive pulmonary disease) (H*02/16/2023 Encounter Status:Closed by ALEXANDRA BASSETT on 07/18/24 [facility] 06-07-2024 Telephone encounter Note Phoned patient left detailed message with results, notes from Jessica Palencia NP, rx sent to [facility] pharmacy on patient voicemail. [facility] 06-07-2024 Miscellaneous Notes Phoned patient left detailed message with results, notes from Jessica Palencia NP, rx sent to [facility] pharmacy on patient voicemail. White count is some elevated as well as her uric acid level. Will also treat her finger swelling with some gout medication to cover possible gout- I have sent to pharmacy. Recheck labs in one month. May also continue antibiotic. The rest of her blood work is in acceptable ranges. Continue all other current medications. Jessica Palencia APRN.CNP documented in this encounter [facility] 06-07-2024 Telephone encounter Note White count is some elevated as well as her uric acid level. Will also treat her finger swelling with some gout medication to cover possible gout- I have sent to pharmacy. Recheck labs in one month. May also continue antibiotic. The rest of her blood work is in acceptable ranges. Continue all other current medications. Jessica Palencia APRN.CNP [facility] 06-06-2024 Telephone encounter Note Patient notified of results. Patient verbalizes understanding. Patient scheduled for 6 month follow up on 12/03/[address] [facility] 06-06-2024 Miscellaneous Notes Patient notified of results. Patient verbalizes understanding. Patient scheduled for 6 month follow up on 12/03/2024 Libertad Coleman RN Telephoned patient, message left to call office back for update. When patient calls back please assist with scheduling 6 month follow up as well. Trista Espinosa LPN ----- Message from Jessica Palencia APRN.COLD ROLLING SUPERVISOR sent at 06/05/2024 2:24 PM EDT ----- Xray shows some mild arthritis. Jessica Palencia APRN.COLD ROLLING SUPERVISOR documented in this encounter [facility] 06-05-2024 Telephone encounter Note Telephoned patient, message left to call office back for update. When patient calls back please assist with scheduling 6 month follow up as well. Trista Espinosa LPN [facility] 06-05-2024 Telephone encounter Note ----- Message from Jessica Palencia APRN.KATHLEEN sent at 06/05/2024 2:24 PM EDT ----- Xray shows some mild arthritis. Jessica Palencia APRN.COLD ROLLING SUPERVISOR [facility] 06-05-2024 History of Present illness Narrative Radiology Service Progress Note PATIENT NAME: Molly Hidalgo DATE OF SERVICE: June 05, 2024 TIME: 1:44 PM PATIENT IDENTITY VERIFICATION COMPLETED USING TWO (2) IDENTIFIERS: Name and Date of confirmed by patient verbally. FALL SCREENING: Has the patient had 2 falls in the last year or 1 fall with injury or currently using an Ambulatory Assistive Device (Walker, Cane, Wheelchair, Crutches, etc.)? No PATIENT GENDER DATA: Female. status: : No status: NO. PATIENT RELEVANT IMPLANT DATA REVIEWED: Yes PATIENT PRESENTS WITH AN IMPLANTABLE OR ATTACHED SUPERVISOR PARTICLEBOARD: No RADIOLOGY DEPARTMENT: General X-ray: Exam(s) Completed: Upper Extremity X-Ray(s): Fingers/Thumb, right thumb PERIPHERAL IV DATA: Not applicable SIGNED BY: BEAR Domínguez) June 05, 2024 1:44 PM documented in this encounter [facility] 06-05-2024 Note HNO ID: [id number] Author: JYOTHI VENTURA RT(R) Service: ? Author Type: Fund Manager Type: Progress Notes Filed: 06/05/2024 13:51 Note Text: Radiology Service Progress Note PATIENT NAME: Molly Hidalgo DATE OF SERVICE: June 05, 2024 TIME: 1:44 PM PATIENT IDENTITY VERIFICATION COMPLETED USING TWO (2) IDENTIFIERS: Name and Date of confirmed by patient verbally. FALL SCREENING: Has the patient had 2 falls in the last year or 1 fall with injury or currently using an Ambulatory Assistive Device (Walker, Cane, Wheelchair, Crutches, etc.)? No PATIENT GENDER DATA: Female. status: : No status: NO. PATIENT RELEVANT IMPLANT DATA REVIEWED: Yes PATIENT PRESENTS WITH AN IMPLANTABLE OR ATTACHED SUPERVISOR PARTICLEBOARD: No RADIOLOGY DEPARTMENT: General X-ray: Exam(s) Completed: Upper Extremity X-Ray(s): Fingers/Thumb, right thumb PERIPHERAL IV DATA: Not applicable SIGNED BY: Jyothi Ventura RT(R) June 05, 2024 1:44 PM [facility] 06-05-2024 Note HNO ID: [id number] Author: JESSICA PALENCIA APRN.COLD ROLLING SUPERVISOR Service: ? Author Type: Nurse Practitioner Type: Progress Notes Filed: 06/05/2024 14:37 Note Text: 06/05/2024 Patient presents with: Wellness Visit SUBJECTIVE: This is a 63 year old that is here today for Above Complaints. Since last office visit has been in good health without ER visits or hospitalizations. HTN: Patient is compliant with meds Yes Monitors bp at home: No. Denies side effects: Yes. Chest pain: No. Dyspnea: No. Edema: No. Palpitations: No. Syncope: No. Headache: No. Dizziness: No. Prediabetes: taking Metformin as prescribed without side effects. Not following a low carbohydrate diet but has started trying to get back on track. Denies visual changes, polyuria or polydipsia GERD: taking omeprazole as prescribe without side effects. Denies breakthrough symptoms Depression: taking Cymbalta and Wellbutrin as prescribed without side effects. Not attending counseling. Denies SI, HI or insomnia HYPERLIPIDEMIA: Patient is taking medications: Yes. Patient is watching diet: No. Patient denies myalgias: Yes. Patient denies gi upset: Yes Followed up with cardiology on 03/11/2024 for coronary calcification seen on CT scan. Stress test ordered but she has not scheduled as of yet COPD: admits not good about using her Symbicort. Rare use of albuterol inhaler. Admits to some SOB with exertions. Right thumb started hurting yesterday. Hard time bending it. Denies past/present injury or red streaking Follows with pain management for hx of chronic back pain PAST MEDICAL HISTORY Diagnosis Date Abnormal glandular Papanicolaou smear of cervix Abn. Pap smear (cervix) Bulimia Chronic lower back pain Dr. Hall Colon polyps hyperplastic polyp 2014 COPD (chronic obstructive pulmonary disease) (HCC) 02/16/2023 Depression Diaphragmatic hernia without mention of obstruction or gangrene Esophageal reflux 06/09/2005 Family history of coronary artery disease Fatty liver 10/19/2023 Fibromyalgia History of alcohol dependence (HCC) History of drug abuse (HCC) marijuana, cocaine, acid, methamphetamines, speed. Sober since age 20s Hypertension Iron deficiency anemia Lumbar stenosis with neurogenic claudication Mononucleosis Nephrolithiasis PAD (peripheral artery disease) ([facility]) Prediabetes Pure hypercholesterolemia 06/09/2005 Tobacco use ALLERGIES Iodine [Contrast Dye] and Lipitor [Atorvastatin Calcium] MEDICATIONS Current Outpatient Medications Medication Sig metFORMIN (GLUCOPHAGE) 500 mg tablet Take 1 tablet by mouth two times a day with meals. . DULoxetine (CYMBALTA) 60 mg capsule Take 1 capsule by mouth once daily. patient assistance buPROPion XL (WELLBUTRIN XL) 300 mg 24 hr tablet Take 1 tablet by mouth once daily. rosuvastatin (CRESTOR) 20 mg tablet Take 1 tablet by mouth daily at bedtime. budesonide-formoterol (SYMBICORT) 80-4.5 mcg/actuation inhaler Inhale 2 Puffs as instructed two times a day. albuterol HFA (VENTOLIN HFA) 90 mcg/actuation inhaler Inhale 2 Puffs as instructed every 4 hours as needed for wheezing/shortness of breath. lisinopril (ZESTRIL) 10 mg tablet Take 0.5 tablets by mouth once daily. omeprazole (PRILOSEC) 40 mg capsule Take 1 capsule by mouth once daily. nitroglycerin sublingual (NITROSTAT) 0.4 mg SL tablet Dissolve 1 tablet under the tongue every 5 minutes as needed for chest pain. pregabalin (LYRICA) 100 mg capsule Take 1 capsule by mouth twice daily for 90 days. traMADol (ULTRAM) 50 mg tablet Take 50 mg by mouth twice daily. Cholecalciferol, Vitamin D3, 2,000 unit cap Take 1 tablet by mouth once daily. No current facility-administered medications for this visit. Medications and allergies reviewed by this provider. SOCIAL HISTORY Social History Tobacco Use Smoking status: Every Day Current packs/day: 0.00 Types: Cigarettes Start date: 12/09/1967 Last attempt to quit: 12/08/2017 Years since quittin.4 Smokeless tobacco: Never Tobacco comments: Reports 7 cigarettes daily as of 04/09/2024 Vaping Use Vaping status: Never Used Substance Use Topics Alcohol use: Yes Comment: socially Drug use: No Comment: none in many yrs REVIEW OF SYSTEMS GENERAL: No weight loss, malaise or fevers HEENT: Negative for frequent or significant headaches, No changes in hearing or vision, no nose bleeds or other nasal problems NECK: Negative for lumps, goiter, pain and significant neck swelling RESPIRATORY: Negative for cough, hemoptysis, wheezing, COPD, dyspnea CARDIOVASCULAR: Negative for chest pain, leg swelling, hypertension, CHF or palpitations GI: No nausea, vomiting, or diarrhea : No history of dysuria, frequency or incontinence RESOLUTION SPECIALIST: Negative for abnormal vaginal bleeding, abnormal vaginal discharge MUSCULOSKELETAL: See HPI SKIN: Negative for lesions, rash, and itching PSYCH: Negative for sleep disturbance, mood (more content not included)... [facility] 06-05-2024 History of Present illness Narrative 06/05/2024 Patient presents with: Wellness Visit SUBJECTIVE: This is a 63 year old that is here today for Above Complaints. Since last office visit has been in good health without ER visits or hospitalizations. HTN: Patient is compliant with meds Yes Monitors bp at home: No. Denies side effects: Yes. Chest pain: No. Dyspnea: No. Edema: No. Palpitations: No. Syncope: No. Headache: No. Dizziness: No. Prediabetes: taking Metformin as prescribed without side effects. Not following a low carbohydrate diet but has started trying to get back on track. Denies visual changes, polyuria or polydipsia GERD: taking omeprazole as prescribe without side effects. Denies breakthrough symptoms Depression: taking Cymbalta and Wellbutrin as prescribed without side effects. Not attending counseling. Denies SI, HI or insomnia HYPERLIPIDEMIA: Patient is taking medications: Yes. Patient is watching diet: No. Patient denies myalgias: Yes. Patient denies gi upset: Yes Followed up with cardiology on 03/11/2024 for coronary calcification seen on CT scan. Stress test ordered but she has not scheduled as of yet COPD: admits not good about using her Symbicort. Rare use of albuterol inhaler. Admits to some SOB with exertions. Right thumb started hurting yesterday. Hard time bending it. Denies past/present injury or red streaking Follows with pain management for hx of chronic back pain PAST MEDICAL HISTORY Diagnosis Date Abnormal glandular Papanicolaou smear of cervix Abn. Pap smear (cervix) Bulimia Chronic lower back pain Dr. Hall Colon polyps hyperplastic polyp 2014 COPD (chronic obstructive pulmonary disease) ([facility]) 02/16/2023 Depression 1980s Diaphragmatic hernia without mention of obstruction or gangrene Esophageal reflux 06/09/2005 Family history of coronary artery disease Fatty liver 10/19/2023 Fibromyalgia History of alcohol dependence (HCC) History of drug abuse ([facility]) marijuana, cocaine, acid, methamphetamines, speed. Sober since age 20s Hypertension Iron deficiency anemia Lumbar stenosis with neurogenic claudication Mononucleosis Nephrolithiasis PAD (peripheral artery disease) ([facility]) Prediabetes Pure hypercholesterolemia 06/09/2005 Tobacco use ALLERGIES Iodine [Contrast Dye] and Lipitor [Atorvastatin Calcium] MEDICATIONS Current Outpatient Medications Medication Sig metFORMIN (GLUCOPHAGE) 500 mg tablet Take 1 tablet by mouth two times a day with meals. . DULoxetine (CYMBALTA) 60 mg capsule Take 1 capsule by mouth once daily. patient assistance buPROPion XL (WELLBUTRIN XL) 300 mg 24 hr tablet Take 1 tablet by mouth once daily. rosuvastatin (CRESTOR) 20 mg tablet Take 1 tablet by mouth daily at bedtime. budesonide-formoterol (SYMBICORT) 80-4.5 mcg/actuation inhaler Inhale 2 Puffs as instructed two times a day. albuterol HFA (VENTOLIN HFA) 90 mcg/actuation inhaler Inhale 2 Puffs as instructed every 4 hours as needed for wheezing/shortness of breath. lisinopril (ZESTRIL) 10 mg tablet Take 0.5 tablets by mouth once daily. omeprazole (PRILOSEC) 40 mg capsule Take 1 capsule by mouth once daily. nitroglycerin sublingual (NITROSTAT) 0.4 mg SL tablet Dissolve 1 tablet under the tongue every 5 minutes as needed for chest pain. pregabalin (LYRICA) 100 mg capsule Take 1 capsule by mouth twice daily for 90 days. traMADol (ULTRAM) 50 mg tablet Take 50 mg by mouth twice daily. Cholecalciferol, Vitamin D3, 2,000 unit cap Take 1 tablet by mouth once daily. No current facility-administered medications for this visit. Medications and allergies reviewed by this provider. SOCIAL HISTORY Social History Tobacco Use Smoking status: Every Day Current packs/day: 0.00 Types: Cigarettes Start date: 12/09/1967 Last attempt to quit: 12/08/2017 Years since quittin.4 Smokeless tobacco: Never Tobacco comments: Reports 7 cigarettes daily as of 04/09/2024 Vaping Use Vaping status: Never Used Substance Use Topics Alcohol use: Yes Comment: socially Drug use: No Comment: none in many yrs REVIEW OF SYSTEMS GENERAL: No weight loss, malaise or fevers HEENT: Negative for frequent or significant headaches, No changes in hearing or vision, no nose bleeds or other nasal problems NECK: Negative for lumps, goiter, pain and significant neck swelling RESPIRATORY: Negative for cough, hemoptysis, wheezing, COPD, dyspnea CARDIOVASCULAR: Negative for chest pain, leg swelling, hypertension, CHF or palpitations GI: No nausea, vomiting, or diarrhea : No history of dysuria, frequency or incontinence RESOLUTION SPECIALIST: Negative for abnormal vaginal bleeding, abnormal vaginal discharge MUSCULOSKELETAL: See HPI SKIN: Negative for lesions, rash, and itching PSYCH: Negative for sleep disturbance, mood disorder and recent psychosocial stressors HEMATOLOGY/LYMPHOLOGY: Negative for prolonged bleeding, bruising easily or swollen nodes ENDOCRINE: Negative for cold or heat intolerance, polyuria, polydipsia and goiter NEURO: No history of headaches, syncope, paralysis, seizures or tremors All other reviewed and negative other than HPI. OBJECTIVE: BP 116/82 Pulse 82 Resp 18 Ht 151.5 cm (4' 11.65) Wt 59.9 kg (132 lb 0.9 oz) LMP 08/02/2005 SpO2 95% BMI 26.10 kg/m . Vital signs reviewed by this provider. APPEARANCE Well appearing, alert, in no acute distress, well-hydrated, well nourished. EYES conjunctiva and sclera normal. EARS External ears normal, canals clear NECK Supple, no adenopathy; thyroid symmetric, normal size, no bruits HEART RRR with normal S1 and S2, no murmurs, no gallops, no JVD appreciated LUNG clear to auscultation. No wheezes, rhonchi or rales ABDOMEN bowel sounds normoactive, no bruits, soft, non-tender, non-distended EXTREMITIES Extremities normal, No deformities, No skin discoloration, and No edema SKIN Skin color, texture, turgor normal, no suspicious rashes or lesions to exposed skin RIGHT HAND: mild TTP, erythema and swelling over MCP joint. Unable to fully flex Anxiety Screening Never done BP Controlled (<130/80) Never done Alpha-1 Antitrypsin Deficiency Screening Never done Influenza Vaccine(1) due on 05/19/2024 Mammogram Screening due on 06/13/2024 Pneumococcal Vaccine(3 of 3 - PPSV23 or PCV20) due on 2024 Annual PCP Team Chronic Disease Visit due on 06/05/2025 DTaP,Tdap,Td Vaccine(2 - Td or Tdap) due on 02/21/2026 Diabetes Screening due on 02/19/2027 Lipid Screening due on 06/17/2027 Colorectal Cancer Screening due on 04/09/2034 Spirometry Completed RSV Vaccine Completed Hepatitis C Screening Completed HIV Screening Completed Shingrix Vaccine Completed Covid-19 Vaccine Completed Cervical Cancer Screening Discontinued ASSESSMENT/PLAN: 1. Routine physical examination - ICD9: V70.0, ICD10: Z00.00 (primary diagnosis) - Counseled on healthy diet and regular exercise - Discussed need and benefit for weight loss. BMI 26.10 kg/(m^2) - Mammogram ordered - exam recommended once yearly - Smoking cessation encouraged; discussed risks to health and quitting strategies. Patient is not ready to quit - Follow up for annual exam in one year 2. Prediabetes - ICD9: 790.29, ICD10: R73.03 - recommend low saturated fat diet and at least 150 minutes of exercise per week - COMPREHENSIVE METABOLIC PANEL - HEMOGLOBIN A1C - COMPLETE BLOOD COUNT AND DIFFERENTIAL - follow-up in 6 months sooner if needed 3. Hyperlipidemia, mixed - ICD9: 272.2, ICD10: E78.2 - Control undetermined, due for labs - Continue current medications - Counseled on healthy diet and regular exercise - Discussed need for and benefit of weight loss. BMI 26.10 kg/(m^2) - Follow up in 6 months, sooner should any other issues arise. - COMPREHENSIVE METABOLIC PANEL - LIPID PANEL BASIC 4. Essential hypertension - ICD9: 401.9, ICD10: I10 - Controlled - Continue current medications - Recommend home blood pressure monitoring, to bring results to next visit - Encouraged sodium restriction, DASH or Mediterranean diet - Recommend regular aerobic exercise - Discussed need for and benefit of weight loss. BMI 26.10 kg/(m^2) - Smoking cessation encouraged; discussed risks to health and quitting strategies. Patient is not ready to quit - Follow up in 6 months for hypertension visit - COMPREHENSIVE METABOLIC PANEL - COMPLETE BLOOD COUNT AND DIFFERENTIAL 5. Lumbar stenosis with neurogenic claudication - ICD9: 724.03, ICD10: M48.062 - continue with pain management - PREGABALIN 100 MG CAPSULE- updated in system as patient reports she takes it three times a day 6. Encounter for screening mammogram for breast cancer - ICD9: V76.12, ICD10: Z12.31 - EDDY SCREENING W ROXANNE 7. Pain of right thumb - ICD9: 729.5, ICD10: M79.644 - consider infection vs arthritis vs gout - URIC ACID - XR DIGIT GENERAL 3V FRONTAL/LAT/OBL RIGHT - CEPHALEXI- COMPLETE BLOOD COUNT AND DIFFERENTIALN 500 MG CAPSULE 8. Chronic obstructive pulmonary disease, unspecified COPD type (HCC) - ICD9: 496, ICD10: J44.9 - needs to be more consistent with her Symbicort - follow-up in 6 months sooner if needed 9. Gastroesophageal reflux disease, unspecified whether esophagitis present - ICD9: 530.81, ICD10: K21.9 - stable on current regime 10. Coronary artery calcification - ICD9: 414.00, 414.4, ICD10: I25.10 - recommend she schedule her stress test and follow-up with cardiology as recommended Jessica Palencia APRN.[employer]PER[employer] Prescription instructions reviewed with patient as applicable. Patient advised if symptoms do not improve or if symptoms worsen sooner, to contact their primary care physician. Potential red flag symptoms discussed with the patient. Reviewed appropriate action plan to take if red flag symptoms occur. Patient agreeable to treatment plan. documented in this encounter [facility] 05-15-2024 Note HNO ID: [id number] Author: ALEXANDRA BASSETT MA Service: ? Author Type: Tapper Balance Wheel Screw Hole Type: Progress Notes Filed: 05/15/2024 15:57 Note Text: POPULATION HEALTH NAVIGATION OUTREACH Action/ LVM MYCHART MESSAGE SENT MAMMOGRAMS after 06-10-24 HCC CLOSURE Reason for Outreach Care Gap/HCC or Scheduling Wellness Visits Care Gaps due: Breast Cancer Screening Patient Contacted: Unable or unnecessary to reach patient: Left message MyChart message sent Navigation Signature: Alexandra Bassett MA May 15, 2024 9:39 AM [facility] 05-15-2024 History of Present illness Narrative POPULATION HEALTH NAVIGATION OUTREACH Action/ LVM MYCHART MESSAGE SENT MAMMOGRAMS after 06-10-24 HCC CLOSURE Reason for Outreach Care Gap/HCC or Scheduling Wellness Visits Care Gaps due: Breast Cancer Screening Patient Contacted: Unable or unnecessary to reach patient: Left message MyChart message sent Navigation Signature: Alexandra Bassett MA May 15, 2024 9:39 AM documented in this encounter [facility] 05-15-2024 Note Patient Outreach (NE TNAV) MOLLY HIDALGO ([id number]) 1960 F Date Time Provider Department 05/15/24 ALEXANDRA BASSETT NETNAV During your visit today, we recorded the following information about you: Alexandra Bassett MA 05/15/2024 3:57 PM Signed POPULATION HEALTH NAVIGATION OUTREACH Action/ LVM MYCHART MESSAGE SENT MAMMOGRAMS after 06-10-24 HCC CLOSURE Reason for Outreach Care Gap/HCC or Scheduling Wellness Visits Care Gaps due: Breast Cancer Screening Patient Contacted: Unable or unnecessary to reach patient: Left message Credoraxhart message sent Navigation Signature: Alexandra Bassett MA May 15, 2024 9:39 AM Allergies As of Date: 05/15/2024 Noted Allergy Reaction IODINE (CONTRAST DYE) 01/17/2012 7 - Swelling Comments: PT HAD A REACTION OF SWELLING IN THROAT,TROUBLE BREATHING 24 HRS AFTER INJECTION OF IV DYE FOR A CT UROGRAM. KK LIPITOR (ATORVASTATIN CALCIUM) 14 - Other: See Comments Comments: Skin turned yellow Date Reviewed: 04/09/2024 Reviewed by: Keila Tineo, RN - Fully Assessed Reason for Visit: Population Health Navigation Outreach [3910] Cmt: UN [employer] Prescriptions as of 05/15/2024 - metFORMIN (GLUCOPHAGE) 500 mg tablet Take 1 tablet by mouth two times a day with meals. . - DULoxetine (CYMBALTA) 60 mg capsule Take 1 capsule by mouth once daily. patient assistance - buPROPion XL (WELLBUTRIN XL) 300 mg 24 hr tablet Take 1 tablet by mouth once daily. - rosuvastatin (CRESTOR) 20 mg tablet Take 1 tablet by mouth daily at bedtime. - budesonide-formoterol (SYMBICORT) 80-4.5 mcg/actuation inhaler Inhale 2 Puffs as instructed two times a day. - albuterol HFA (VENTOLIN HFA) 90 mcg/actuation inhaler Inhale 2 Puffs as instructed every 4 hours as needed for wheezing/shortness of breath. - lisinopril (ZESTRIL) 10 mg tablet Take 0.5 tablets by mouth once daily. - omeprazole (PRILOSEC) 40 mg capsule Take 1 capsule by mouth once daily. - nitroglycerin sublingual (NITROSTAT) 0.4 mg SL tablet Dissolve 1 tablet under the tongue every 5 minutes as needed for chest pain. - pregabalin (LYRICA) 100 mg capsule Take 1 capsule by mouth twice daily for 90 days. - traMADol (ULTRAM) 50 mg tablet Take 50 mg by mouth twice daily. - Cholecalciferol, Vitamin D3, 2,000 unit cap Take 1 tablet by mouth once daily. Meds Comments as of 06/29/2012: Problem List As Of Date 05/15/2024 Noted Resolved Pure hypercholesterolemia [E78.00] 06/09/2005 08/17/2018 ESOPHAGEAL REFLUX [K21.9] 06/09/2005 Other and unspecified alcohol dependence, unspe* 03/15/2023 PMH - PAST MEDICAL HISTORY OF 08/17/2018 CHEST PAIN ANTERIOR CHEST WALL [R07.1] 02/09/2006 08/17/2018 TOBACCO USE DISORDER [F17.200] 02/09/2006 BULIMIA NERVOSA [F50.2] 02/09/2006 ADJUSTMENT DISORDER WITH DEPRESSED MOOD [F43.21]02/03/2009 Diaphragmatic Hernia without Mention of Obstruc*07/08/2009 Bulimia [F50.2] 07/08/2009 08/17/2018 Acute gastritis without mention of hemorrhage [*07/08/2009 08/17/2018 Hypertension [I10] 06/23/2011 Kidney stones [N20.0] 01/10/2012 08/17/2018 Right flank pain [R10.9] 01/10/2012 Hypertriglyceridemia [E78.1] 08/31/2012 08/17/2018 OCD (obsessive compulsive disorder) [F42.9] 12/25/2013 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] 12/25/2013 Nephrolithiasis [N20.0] 12/25/2013 Fibromyalgia [M79.7] 05/14/2016 Alcohol dependence (HCC) [F10.20] 08/17/2016 03/15/2023 Spinal stenosis, lumbar region with neurogenic *01/10/2018 Spondylolisthesis of lumbar region [M43.16] 01/10/2018 Lumbar stenosis with neurogenic claudication [M*02/22/2018 Acute postoperative pain [G89.18] 02/23/2018 Hyperlipidemia, mixed [E78.2] 08/17/2018 Depression [F32.A] History of alcohol dependence (HCC) [F10.21] 03/15/2023 Iron deficiency anemia [D50.9] COPD (chronic obstructive pulmonary disease) (H*02/16/2023 Encounter Status:Closed by ALEXANDRA BASSETT on 05/15/24 [facility] 05-08-2024 Telephone encounter Note Prescription Refill Information The patient has been identified by name and date of : Yes Caregiver verified no other encounters exist for this prescription request: Yes Caregiver confirmed with patient/requestor that no other refills are due, in the near future, with this provider at this time: Yes The last office visit in the department: 12-11-23 Does the patient have a future office visit with this provider/department: Yes Requested Prescriptions Pending Prescriptions Disp Refills metFORMIN (GLUCOPHAGE) 500 mg tablet 180 tablet 1 Sig: Take 1 tablet by mouth two times a day with meals. . Tete Dinero May 08, 2024 1:[address] [facility] 05-08-2024 Miscellaneous Notes Prescription Refill Information The patient has been identified by name and date of : Yes Caregiver verified no other encounters exist for this prescription request: Yes Caregiver confirmed with patient/requestor that no other refills are due, in the near future, with this provider at this time: Yes The last office visit in the department: 12-11-23 Does the patient have a future office visit with this provider/department: Yes Requested Prescriptions Pending Prescriptions Disp Refills metFORMIN (GLUCOPHAGE) 500 mg tablet 180 tablet 1 Sig: Take 1 tablet by mouth two times a day with meals. . Tete Dinero May 08, 2024 1:12 PM documented in this encounter [facility] 04-11-2024 Telephone encounter Note FOLLOW UP ENDOSCOPY - RESULTS AND RECOMMENDATIONS NAME: Molly Hidalgo [facility] NO.: [id number] : 1960 DATE: April 11, 2024 PRIMARY CARE PROVIDER: Negrito Wilburn MD Molly Hidalgo is a patient referred for screening colonoscopy. The patient is a 63 year old female referred for endoscopy. Molly notes no current colon complaints The patient notes no upper GI complaints Molly has undergone prior endoscopy. She underwent colonoscopy by Dr. Rk Galeas in 2012 which returned as a tubulovillous adenoma with high-grade dysplasia in the descending colon. Polyp was noted to be 25 mm in size. She then had a 7 mm polyp removed in 2014 which returned as a hyperplastic polyp.. She then had follow-up colonoscopy in 2019 which was unremarkable. It was recommended she have a 5-year follow-up colonoscopy. The patient is being seen by me at the request of Dr. Negrito Wilburn MD for my opinion and advice regarding follow-up for history of a tubulovillous adenoma. I performed lower endoscopy on April 09, 2024. The patient was found to have: Lower Endoscopy Impression: - Diverticulosis in the sigmoid colon. - One 6 mm polyp in the rectum, removed with a cold snare. Resected and retrieved. - The examination was otherwise normal on direct and retroflexion views. Pathology demonstrated: FINAL DIAGNOSIS Rectum, polypectomy: -Hyperplastic polyp IMPRESSION: Hyperplastic polyp, no recent suspicious polyps PLAN: INSTRUCTIONS FOLLOWING A POLYP FOUND AT COLONOSCOPY You were found to have a hyperplastic colon polyp. I recommend you undergo repeat endoscopy in 10 years. If you note bleeding, change in bowel habits, or other suspicious colon related symptoms before that time, those symptoms should be evaluated as necessary. If you have any difficulties or concerns, you should contact our office immediately. The patient is instructed to follow-up with your primary care provider I have instructed my staff to forward the above information to the patient and to the appropriate providers [facility] Work Phone: 04-11-2024 Miscellaneous Notes FOLLOW UP ENDOSCOPY - RESULTS AND RECOMMENDATIONS NAME: Molly Hidalgo [facility] NO.: [id number] : 1960 DATE: April 11, 2024 PRIMARY CARE PROVIDER: Negrito Wilburn MD Molly Hidalgo is a patient referred for screening colonoscopy. The patient is a 63 year old female referred for endoscopy. Molly notes no current colon complaints The patient notes no upper GI complaints Molly has undergone prior endoscopy. She underwent colonoscopy by Dr. Rk Galeas in 2012 which returned as a tubulovillous adenoma with high-grade dysplasia in the descending colon. Polyp was noted to be 25 mm in size. She then had a 7 mm polyp removed in 2014 which returned as a hyperplastic polyp.. She then had follow-up colonoscopy in 2018 which was unremarkable. It was recommended she have a 5-year follow-up colonoscopy. The patient is being seen by me at the request of Dr. Negrito Wilburn MD for my opinion and advice regarding follow-up for history of a tubulovillous adenoma. I performed lower endoscopy on April 09, 2024. The patient was found to have: Lower Endoscopy Impression: - Diverticulosis in the sigmoid colon. - One 6 mm polyp in the rectum, removed with a cold snare. Resected and retrieved. - The examination was otherwise normal on direct and retroflexion views. Pathology demonstrated: FINAL DIAGNOSIS Rectum, polypectomy: -Hyperplastic polyp IMPRESSION: Hyperplastic polyp, no recent suspicious polyps PLAN: INSTRUCTIONS FOLLOWING A POLYP FOUND AT COLONOSCOPY You were found to have a hyperplastic colon polyp. I recommend you undergo repeat endoscopy in 10 years. If you note bleeding, change in bowel habits, or other suspicious colon related symptoms before that time, those symptoms should be evaluated as necessary. If you have any difficulties or concerns, you should contact our office immediately. The patient is instructed to follow-up with your primary care provider I have instructed my staff to forward the above information to the patient and to the appropriate providers documented in this encounter [facility] 04-09-2024 Nurse Note Gentle tactile stimuli to awaken patient, arousable and answers questions but is not ready to sit up for snack yet. Will continue to sleep on left side, oxygen on at 2L per NC. [facility] 04-09-2024 Nurse Note Gentle tactile stimuli to awaken patient, arousable and answers questions but is not ready to sit up for snack yet. Will continue to sleep on left side, oxygen on at 2L per NC. Oxygen applied at 2L per NC for pulse ox readings of 92% on room air while sleeping. Patient received in phase II via cart in left lateral position, eyes closed, responds to verbal stimuli, skin warm and dry, respirations regular and unlabored, abdomen soft and non distended, no grimacing with light palpation of abdomen. Resting comfortably on left side. documented in this encounter [facility] 04-09-2024 Note Formatting of this n ote might be different from the original. The patient received a copy of Colonoscopy discharge instructions that contain information for how to contact the physician who performed the procedure and when to seek medical care. [facility] 04-09-2024 Miscellaneous Notes The patient received a copy of Colonoscopy discharge instructions that contain information for how to contact the physician who performed the procedure and when to seek medical care. documented in this encounter [facility] 04-09-2024 Note HNO ID: [id number] Author: KEILA TINEO RN Service: ? Author Type: Registered Nurse Type: Nursing Progress Note Filed: 04/09/2024 09:57 Note Text: Oxygen applied at 2L per NC for pulse ox readings of 92% on room air while sleeping. [facility] 04-09-2024 Nurse Note Oxygen applied at 2L per NC for pulse ox readings of 92% on room air while sleeping. [facility] 04-09-2024 Nurse Note Patient received in phase II via cart in left lateral position, eyes closed, responds to verbal stimuli, skin warm and dry, respirations regular and unlabored, abdomen soft and non distended, no grimacing with light palpation of abdomen. Resting comfortably on left side. [facility] 04-09-2024 Attending History and physical note UPDATED PROCEDURAL SEDATION HISTORY AND PHYSICAL EXAMINATION SERVICE DATE: 04/09/2024 SERVICE TIME: 9:04 AM PHYSICAL EXAM MUST BE COMPLETED ON ADMISSION PROCEDURE: Procedure Indications: The History and Physical (completed in the past 30 days) has been reviewed and the patient has been examined. The contents accurately reflect the patient's condition with the following additions or revisions since the H&P was completed. ASA Class: ASA Class:: Patient with mild systemic disease Examination indicates no changes. AIRWAY: Airway Visualization of Uvula: Yes Mouth opening greater than 2 fingerbreadths: Yes Neck Full Range of Motion: Yes LUNGS: Lungs clear to auscultation CARDIAC: Regular rhythm,Regular rate Provisional Diagnosis/Treatment Plan: HISTORY OF POLYPS - COLONOSCOPY SEDATION GOAL: Moderate This H&P can be found in the attached. SIGNATURE: Alfred Wills MD PATIENT NAME: Molly Hidalgo DATE: April 09, 2024 TIME: 9:04 AM Source Note - Alfred Wills MD - 04/09/2024 9:00 AM EDT HISTORY AND PHYSICAL Molly Hidalgo 1960 REFERRING PHYSICIAN: Negrito Wilburn,* CHIEF COMPLAINT: Personal history of colon polyps HPI: The patient is a 63 year old female referred for endoscopy. Molly notes no current colon complaints The patient notes no upper GI complaints Molly has undergone prior endoscopy. She underwent colonoscopy by Dr. Rk Galeas in 2012 which returned as a tubulovillous adenoma with high-grade dysplasia in the descending colon. Polyp was noted to be 25 mm in size. She then had a 7 mm polyp removed in 2014 which returned as a hyperplastic polyp.. She then had follow-up colonoscopy in 2018 which was unremarkable. It was recommended she have a 5-year follow-up colonoscopy. The patient is being seen by me today at the request of Dr. Negrito Wliburn MD for my opinion and advice regarding follow-up for history of a tubulovillous adenoma. PAST MEDICAL HISTORY PAST MEDICAL HISTORY Diagnosis Date Abnormal glandular Papanicolaou smear of cervix 1990s Abn. Pap smear (cervix) Bulimia Chronic lower back pain Dr. Hall Colon polyps hyperplastic polyp 2014 COPD (chronic obstructive pulmonary disease) (HCC) 02/16/2023 Depression 1980s Diaphragmatic hernia without mention of obstruction or gangrene Esophageal reflux 06/09/2005 Family history of coronary artery disease Fatty liver 10/19/2023 Fibromyalgia History of alcohol dependence (HCC) History of drug abuse ([facility]) marijuana, cocaine, acid, methamphetamines, speed. Sober since age 20s Hypertension Iron deficiency anemia Lumbar stenosis with neurogenic claudication Mononucleosis Nephrolithiasis PAD (peripheral artery disease) ([facility]) Prediabetes Pure hypercholesterolemia 06/09/2005 Tobacco use PAST SURGICAL HISTORY PAST SURGICAL HISTORY Procedure Laterality Date COLONOSCOPY FLX DX W/COLLJ SPEC WHEN PFRMD 07/23/13 Colonoscopy COLONOSCOPY FLX DX W/COLLJ SPEC WHEN PFRMD 01/14/2015 Colonoscopy, repeat in 3 years COLONOSCOPY FLX DX W/COLLJ SPEC WHEN PFRMD 10/22/2018 Colonoscopy EGD TRANSORAL BIOPSY SINGLE/MULTIPLE 07/08/09 ERCP DESTRUCTION/LITHOTRIPSY CALCULI ANY METHOD 2012 ESOPHAGOGASTRODUODENOSCOPY TRANSORAL DIAGNOSTIC 07/23/13 EGD PAST SURGICAL HISTORY OF 02/2018 L3-4 decompression, TLIF and fusion STEREOTACTIC CORE BIOPSY 02/26/07 left breast TOTAL ABDOMINAL HYSTERECT W/WO RMVL TUBE OVARY 1980s Hysterectomy, SEKOU. precancerous cells CURRENT MEDICATIONS Current Outpatient Medications Medication Sig cephALEXin (KEFLEX) 500 mg capsule Take 1 capsule by mouth two times a day for 7 days. oxybutynin XL (DITROPAN XL) 10 mg 24 hr tablet Take 1 tablet by mouth once daily. budesonide-formoterol (SYMBICORT) 80-4.5 mcg/actuation inhaler Inhale 2 Puffs as instructed two times a day. metFORMIN (GLUCOPHAGE) 500 mg tablet Take 1 tablet by mouth two times a day with meals. . DULoxetine (CYMBALTA) 60 mg capsule Take 1 capsule by mouth once daily. patient assistance buPROPion XL (WELLBUTRIN XL) 300 mg 24 hr tablet Take 1 tablet by mouth once daily. rosuvastatin (CRESTOR) 20 mg tablet Take 1 tablet by mouth daily at bedtime. albuterol HFA (VENTOLIN HFA) 90 mcg/actuation inhaler Inhale 2 Puffs as instructed every 4 hours as needed for wheezing/shortness of breath. lisinopril (ZESTRIL) 10 mg tablet Take 0.5 tablets by mouth once daily. omeprazole (PRILOSEC) 40 mg capsule Take 1 capsule by mouth once daily. nitroglycerin sublingual (NITROSTAT) 0.4 mg SL tablet Dissolve 1 tablet under the tongue every 5 minutes as needed for chest pain. pregabalin (LYRICA) 100 mg capsule Take 1 capsule by mouth twice daily for 90 days. traMADol (ULTRAM) 50 mg tablet Take 50 mg by mouth twice daily. Cholecalciferol, Vitamin D3, 2,000 unit cap Take 1 tablet by mouth once daily. No current facility-administered medications for this visit. ALLERGIES: Iodine [Contrast Dye] and Lipitor [Atorvastatin Calcium] PERSONAL HISTORY: SOCIAL HISTORY Social History Tobacco Use Smoking status: Every Day Years: 50 Types: Cigarettes Last attempt to quit: 12/08/2017 Years since quittin.9 Smokeless tobacco: Never Tobacco comments: Reports 2.5 cigarettes daily as of [id number] Substance Use Topics Alcohol use: No Comment: sober since 01/2019 Drug use: No Comment: none in many yrs FAMILY HISTORY: FAMILY HISTORY FAMILY HISTORY Problem Relation Age of Onset Heart Father from heart attack, age 50 Hyperlipidemia Father Hypertension Father Hypertension Mother Blood Disease Mother ITP Thyroid Sister Cancer Maternal Grandmother colon Heart Paternal Grandfather Heart Paternal Uncle Cancer Maternal Uncle brain REVIEW OF SYMPTOMS: The review of systems data was entered by the nurse and reviewed by ks Nursing Notes: Keeley Fountain RN 11/24/2023 1:04 PM Addendum REVIEW OF SYSTEMS: General: The patient denies fatigue, denies weight loss, denies weight gain, denies feeling hot, and denies feelings of cold. Eyes: The patient denies glaucoma, denies eye injury/surgery, wears glasses or contacts. Ear/Nose/Throat: The patient NOTES allergies, denies hayfever, denies ear infections, and denies bloody noses. Cardiovascular: The patient denies chest pain, denies heart disease, NOTES high blood pressure,denies cardiac stent, denies prior heart attack, denies irregular heart beat, NOTES high cholesterol, denies poor circulation, denies heart failure, other cardiac issues, denies claudication, denies cold feet, denies peripheral arterial stent. Respiratory: The patient denies tuberculosis, denies pneumonia, denies frequent cough, denies pulmonary embolism, NOTES shortness of breath, and NOTES COPD . Gastrointestinal: The patient denies difficulty swallowing, NOTES acid reflux, denies ulcers, denies vomiting, denies jaundice/hepatitis, denies gallbladder problems, denies black or tarry stools, denies hemorrhoids, denies bleeding from rectum, denies diverticulitis, denies constipation, denies diarrhea, denies loss of stool control, and denies hernias. Kidney/Bladder: The patient denies kidney stones, denies urine infections, and denies bloody urine. Skin: The patient denies a history of skin cancer, denies bleeding/changing moles, and denies a history of skin rash. Neurologic: The patient denies a history of epilepsy/convulsions, denies headaches, denies head/spinal injuries, and denies stroke/TIA. Psychiatric: The patient denies psychiatric medications, NOTES depression, and denies voices, denies substance abuse. Endocrine: The patient denies thyroid disorders, denies diabetes, and denies hormonal problems. Hematologic: The patient denies a history of bruising, denies bleeding, and NOTES anemia, denies blood clots. Infections: The patient denies a history of measles and mumps, denies rheumatic fever, and denies sexually transmitted diseases. Musculoskeletal: The patient denies back pain/injury, NOTES back problems, denies sciatica, denies knee/foot trouble, denies arthritis, or denies gout. When was patient's last Mammogram screening? 06/10/2023 Last Colonoscopy: 10/22/2012 Keeley Fountain RN PHYSICAL EXAMINATION: General: The patient is 63 year old female, well nourished, well hydrated in no acute distress. The patient is oriented to time, place, and person. VITALS: Last menstrual period 08/02/2005. There is no height or weight on file to calculate BMI. HEENT: Normal cephalic, ataumatic, pupils are equally round, sclera are anicteric, mucous membranes are moist, oropharynx is clear. Neck has no masses, asymmetry or lymphadenopathy. Thyroid is unremarkable. Respiratory: Clear to auscultation and percussion. Normal respiratory excursion and pattern. Cardiac: Examination is regular rate and rhythm. Abdominal exam: Soft, nontender, with no palpable masses. No hepatosplenomegaly. No palpable hernias. Rectal exam: exam deferred Extremities: no clubbing, cyanosis or edema. No adenopathy. Other: LABORATORY VALUES: As Noted RADIOLOGIC STUDIES: As Noted Assessment IMPRESSION: History of tubulovillous adenoma PLAN: I plan to perform lower endoscopy. We discussed the risks and benefits of the planned endoscopy. I have informed the patient that complications can occur including failure to complete the endoscopy and perforation. The patient had the opportunity to ask questions concerning the planned endoscopy. My staff has also explained the procedure to the patient in understandable terms and has given the patient printed material concerning the procedure. The patient freely consents to surgery. I plan to use golytely bowel preparation for endoscopy The patient left she had talked to Alisson Chaparro our clinical review nurse and noted that she was supposed to follow-up after a abnormal mammogram demonstrating microcalcification. The mammogram in 2021 the recommended biopsy for was felt to be pleomorphic microcalcifications. She was not able to get the procedure done. She then had a follow-up mammogram which was read as BI-RADS category #1. My opinion was that the site was stable and I agree she does not require biopsy at this time. She should have her follow-up annual screening. Attempted to call the patient but was unable to get an answer on her phone. Diagnoses: (D36.9) Tubulovillous adenoma (primary encounter diagnosis) (Z12.11) Screening for colon cancer My findings have been communicated to Dr. Negrito Wilburn MD via shared medical record. This note will be forwarded to Dr. Negrito Wilburn MD. Return to Clinic: The patient is instructed to follow-up with me after the testing has been completed. Alfred Wills MD [facility] Work Phone: 04-09-2024 History and physical note HISTORY AND PHYSICAL Molly Wrightall 1960 REFERRING PHYSICIAN: Negrito Wilburn,* CHIEF COMPLAINT: Personal history of colon polyps HPI: The patient is a 63 year old female referred for endoscopy. Molly notes no current colon complaints The patient notes no upper GI complaints Molly has undergone prior endoscopy. She underwent colonoscopy by Dr. Rk Galeas in 2012 which returned as a tubulovillous adenoma with high-grade dysplasia in the descending colon. Polyp was noted to be 25 mm in size. She then had a 7 mm polyp removed in 2014 which returned as a hyperplastic polyp.. She then had follow-up colonoscopy in 2018 which was unremarkable. It was recommended she have a 5-year follow-up colonoscopy. The patient is being seen by me today at the request of Dr. Negrito Wilburn MD for my opinion and advice regarding follow-up for history of a tubulovillous adenoma. PAST MEDICAL HISTORY PAST MEDICAL HISTORY Diagnosis Date Abnormal glandular Papanicolaou smear of cervix 1990s Abn. Pap smear (cervix) Bulimia Chronic lower back pain Dr. Hall Colon polyps hyperplastic polyp 2014 COPD (chronic obstructive pulmonary disease) (HCC) 02/16/2023 Depression Diaphragmatic hernia without mention of obstruction or gangrene Esophageal reflux 06/09/2005 Family history of coronary artery disease Fatty liver 10/19/2023 Fibromyalgia History of alcohol dependence (HCC) History of drug abuse ([facility]) marijuana, cocaine, acid, methamphetamines, speed. Sober since age 20s Hypertension Iron deficiency anemia Lumbar stenosis with neurogenic claudication Mononucleosis Nephrolithiasis PAD (peripheral artery disease) ([facility]) Prediabetes Pure hypercholesterolemia 06/09/2005 Tobacco use PAST SURGICAL HISTORY PAST SURGICAL HISTORY Procedure Laterality Date COLONOSCOPY FLX DX W/COLLJ SPEC WHEN PFRMD 07/23/13 Colonoscopy COLONOSCOPY FLX DX W/COLLJ SPEC WHEN PFRMD 01/14/2015 Colonoscopy, repeat in 3 years COLONOSCOPY FLX DX W/COLLJ SPEC WHEN PFRMD 10/22/2018 Colonoscopy EGD TRANSORAL BIOPSY SINGLE/MULTIPLE 07/08/09 ERCP DESTRUCTION/LITHOTRIPSY CALCULI ANY METHOD 2012 ESOPHAGOGASTRODUODENOSCOPY TRANSORAL DIAGNOSTIC 07/23/13 EGD PAST SURGICAL HISTORY OF 02/2018 L3-4 decompression, TLIF and fusion STEREOTACTIC CORE BIOPSY 02/26/07 left breast TOTAL ABDOMINAL HYSTERECT W/WO RMVL TUBE OVARY Hysterectomy, SEKOU. precancerous cells CURRENT MEDICATIONS Current Outpatient Medications Medication Sig cephALEXin (KEFLEX) 500 mg capsule Take 1 capsule by mouth two times a day for 7 days. oxybutynin XL (DITROPAN XL) 10 mg 24 hr tablet Take 1 tablet by mouth once daily. budesonide-formoterol (SYMBICORT) 80-4.5 mcg/actuation inhaler Inhale 2 Puffs as instructed two times a day. metFORMIN (GLUCOPHAGE) 500 mg tablet Take 1 tablet by mouth two times a day with meals. . DULoxetine (CYMBALTA) 60 mg capsule Take 1 capsule by mouth once daily. patient assistance buPROPion XL (WELLBUTRIN XL) 300 mg 24 hr tablet Take 1 tablet by mouth once daily. rosuvastatin (CRESTOR) 20 mg tablet Take 1 tablet by mouth daily at bedtime. albuterol HFA (VENTOLIN HFA) 90 mcg/actuation inhaler Inhale 2 Puffs as instructed every 4 hours as needed for wheezing/shortness of breath. lisinopril (ZESTRIL) 10 mg tablet Take 0.5 tablets by mouth once daily. omeprazole (PRILOSEC) 40 mg capsule Take 1 capsule by mouth once daily. nitroglycerin sublingual (NITROSTAT) 0.4 mg SL tablet Dissolve 1 tablet under the tongue every 5 minutes as needed for chest pain. pregabalin (LYRICA) 100 mg capsule Take 1 capsule by mouth twice daily for 90 days. traMADol (ULTRAM) 50 mg tablet Take 50 mg by mouth twice daily. Cholecalciferol, Vitamin D3, 2,000 unit cap Take 1 tablet by mouth once daily. No current facility-administered medications for this visit. ALLERGIES: Iodine [Contrast Dye] and Lipitor [Atorvastatin Calcium] PERSONAL HISTORY: SOCIAL HISTORY Social History Tobacco Use Smoking status: Every Day Years: 50 Types: Cigarettes Last attempt to quit: 12/08/2017 Years since quittin.9 Smokeless tobacco: Never Tobacco comments: Reports 2.5 cigarettes daily as of [id number] Substance Use Topics Alcohol use: No Comment: sober since 01/2019 Drug use: No Comment: none in many yrs FAMILY HISTORY: FAMILY HISTORY FAMILY HISTORY Problem Relation Age of Onset Heart Father from heart attack, age 50 Hyperlipidemia Father Hypertension Father Hypertension Mother Blood Disease Mother ITP Thyroid Sister Cancer Maternal Grandmother colon Heart Paternal Grandfather Heart Paternal Uncle Cancer Maternal Uncle brain REVIEW OF SYMPTOMS: The review of systems data was entered by the nurse and reviewed by ks Nursing Notes: Keeley Fountain RN 11/24/2023 1:04 PM Addendum REVIEW OF SYSTEMS: General: The patient denies fatigue, denies weight loss, denies weight gain, denies feeling hot, and denies feelings of cold. Eyes: The patient denies glaucoma, denies eye injury/surgery, wears glasses or contacts. Ear/Nose/Throat: The patient NOTES allergies, denies hayfever, denies ear infections, and denies bloody noses. Cardiovascular: The patient denies chest pain, denies heart disease, NOTES high blood pressure,denies cardiac stent, denies prior heart attack, denies irregular heart beat, NOTES high cholesterol, denies poor circulation, denies heart failure, other cardiac issues, denies claudication, denies cold feet, denies peripheral arterial stent. Respiratory: The patient denies tuberculosis, denies pneumonia, denies frequent cough, denies pulmonary embolism, NOTES shortness of breath, and NOTES COPD . Gastrointestinal: The patient denies difficulty swallowing, NOTES acid reflux, denies ulcers, denies vomiting, denies jaundice/hepatitis, denies gallbladder problems, denies black or tarry stools, denies hemorrhoids, denies bleeding from rectum, denies diverticulitis, denies constipation, denies diarrhea, denies loss of stool control, and denies hernias. Kidney/Bladder: The patient denies kidney stones, denies urine infections, and denies bloody urine. Skin: The patient denies a history of skin cancer, denies bleeding/changing moles, and denies a history of skin rash. Neurologic: The patient denies a history of epilepsy/convulsions, denies headaches, denies head/spinal injuries, and denies stroke/TIA. Psychiatric: The patient denies psychiatric medications, NOTES depression, and denies voices, denies substance abuse. Endocrine: The patient denies thyroid disorders, denies diabetes, and denies hormonal problems. Hematologic: The patient denies a history of bruising, denies bleeding, and NOTES anemia, denies blood clots. Infections: The patient denies a history of measles and mumps, denies rheumatic fever, and denies sexually transmitted diseases. Musculoskeletal: The patient denies back pain/injury, NOTES back problems, denies sciatica, denies knee/foot trouble, denies arthritis, or denies gout. When was patient's last Mammogram screening? 06/10/2023 Last Colonoscopy: 10/22/2012 Keeley Fountain RN PHYSICAL EXAMINATION: General: The patient is 63 year old female, well nourished, well hydrated in no acute distress. The patient is oriented to time, place, and person. VITALS: Last menstrual period 08/02/2005. There is no height or weight on file to calculate BMI. HEENT: Normal cephalic, ataumatic, pupils are equally round, sclera are anicteric, mucous membranes are moist, oropharynx is clear. Neck has no masses, asymmetry or lymphadenopathy. Thyroid is unremarkable. Respiratory: Clear to auscultation and percussion. Normal respiratory excursion and pattern. Cardiac: Examination is regular rate and rhythm. Abdominal exam: Soft, nontender, with no palpable masses. No hepatosplenomegaly. No palpable hernias. Rectal exam: exam deferred Extremities: no clubbing, cyanosis or edema. No adenopathy. Other: LABORATORY VALUES: As Noted RADIOLOGIC STUDIES: As Noted Assessment IMPRESSION: History of tubulovillous adenoma PLAN: I plan to perform lower endoscopy. We discussed the risks and benefits of the planned endoscopy. I have informed the patient that complications can occur including failure to complete the endoscopy and perforation. The patient had the opportunity to ask questions concerning the planned endoscopy. My staff has also explained the procedure to the patient in understandable terms and has given the patient printed material concerning the procedure. The patient freely consents to surgery. I plan to use golytely bowel preparation for endoscopy The patient left she had talked to Alisson Chaparro our clinical review nurse and noted that she was supposed to follow-up after a abnormal mammogram demonstrating microcalcification. The mammogram in 2021 the recommended biopsy for was felt to be pleomorphic microcalcifications. She was not able to get the procedure done. She then had a follow-up mammogram which was read as BI-RADS category #1. My opinion was that the site was stable and I agree she does not require biopsy at this time. She should have her follow-up annual screening. Attempted to call the patient but was unable to get an answer on her phone. Diagnoses: (D36.9) Tubulovillous adenoma (primary encounter diagnosis) (Z12.11) Screening for colon cancer My findings have been communicated to Dr. Negrito Wilburn MD via shared medical record. This note will be forwarded to Dr. Negrito Wilburn MD. Return to Clinic: The patient is instructed to follow-up with me after the testing has been completed. Alfred Wills MD [facility] 04-09-2024 History and physical note UPDATED PROCEDURAL SEDATION HISTORY AND PHYSICAL EXAMINATION SERVICE DATE: 04/09/2024 SERVICE TIME: 9:04 AM PHYSICAL EXAM MUST BE COMPLETED ON ADMISSION PROCEDURE: Procedure Indications: The History and Physical (completed in the past 30 days) has been reviewed and the patient has been examined. The contents accurately reflect the patient's condition with the following additions or revisions since the H&P was completed. ASA Class: ASA Class:: Patient with mild systemic disease Examination indicates no changes. AIRWAY: Airway Visualization of Uvula: Yes Mouth opening greater than 2 fingerbreadths: Yes Neck Full Range of Motion: Yes LUNGS: Lungs clear to auscultation CARDIAC: Regular rhythm,Regular rate Provisional Diagnosis/Treatment Plan: HISTORY OF POLYPS - COLONOSCOPY SEDATION GOAL: Moderate This H&P can be found in the attached. SIGNATURE: Alfred Wills MD PATIENT NAME: Molly Hidalgo DATE: April 09, 2024 TIME: 9:04 AM Source Note - Alfred Wills MD - 04/09/2024 9:00 AM EDT HISTORY AND PHYSICAL Molly Hidalgo 1960 REFERRING PHYSICIAN: Negrito Wilburn,* CHIEF COMPLAINT: Personal history of colon polyps HPI: The patient is a 63 year old female referred for endoscopy. Molly notes no current colon complaints The patient notes no upper GI complaints Molly has undergone prior endoscopy. She underwent colonoscopy by Dr. Rk Galeas in 2012 which returned as a tubulovillous adenoma with high-grade dysplasia in the descending colon. Polyp was noted to be 25 mm in size. She then had a 7 mm polyp removed in 2014 which returned as a hyperplastic polyp.. She then had follow-up colonoscopy in 2018 which was unremarkable. It was recommended she have a 5-year follow-up colonoscopy. The patient is being seen by me today at the request of Dr. Negrito Wilburn MD for my opinion and advice regarding follow-up for history of a tubulovillous adenoma. PAST MEDICAL HISTORY PAST MEDICAL HISTORY Diagnosis Date Abnormal glandular Papanicolaou smear of cervix Abn. Pap smear (cervix) Bulimia Chronic lower back pain Dr. Hall Colon polyps hyperplastic polyp 2014 COPD (chronic obstructive pulmonary disease) (HCC) 02/16/2023 Depression Diaphragmatic hernia without mention of obstruction or gangrene Esophageal reflux 06/09/2005 Family history of coronary artery disease Fatty liver 10/19/2023 Fibromyalgia History of alcohol dependence (HCC) History of drug abuse (HCC) marijuana, cocaine, acid, methamphetamines, speed. Sober since age 20s Hypertension Iron deficiency anemia Lumbar stenosis with neurogenic claudication Mononucleosis Nephrolithiasis PAD (peripheral artery disease) (HCC) Prediabetes Pure hypercholesterolemia 06/09/2005 Tobacco use PAST SURGICAL HISTORY PAST SURGICAL HISTORY Procedure Laterality Date COLONOSCOPY FLX DX W/COLLJ SPEC WHEN PFRMD 07/23/13 Colonoscopy COLONOSCOPY FLX DX W/COLLJ SPEC WHEN PFRMD 01/14/2015 Colonoscopy, repeat in 3 years COLONOSCOPY FLX DX W/COLLJ SPEC WHEN PFRMD 10/22/2018 Colonoscopy EGD TRANSORAL BIOPSY SINGLE/MULTIPLE 07/08/09 ERCP DESTRUCTION/LITHOTRIPSY CALCULI ANY METHOD 2012 ESOPHAGOGASTRODUODENOSCOPY TRANSORAL DIAGNOSTIC 07/23/13 EGD PAST SURGICAL HISTORY OF 02/2018 L3-4 decompression, TLIF and fusion STEREOTACTIC CORE BIOPSY 02/26/07 left breast TOTAL ABDOMINAL HYSTERECT W/WO RMVL TUBE OVARY 1980s Hysterectomy, SEKOU. precancerous cells CURRENT MEDICATIONS Current Outpatient Medications Medication Sig cephALEXin (KEFLEX) 500 mg capsule Take 1 capsule by mouth two times a day for 7 days. oxybutynin XL (DITROPAN XL) 10 mg 24 hr tablet Take 1 tablet by mouth once daily. budesonide-formoterol (SYMBICORT) 80-4.5 mcg/actuation inhaler Inhale 2 Puffs as instructed two times a day. metFORMIN (GLUCOPHAGE) 500 mg tablet Take 1 tablet by mouth two times a day with meals. . DULoxetine (CYMBALTA) 60 mg capsule Take 1 capsule by mouth once daily. patient assistance buPROPion XL (WELLBUTRIN XL) 300 mg 24 hr tablet Take 1 tablet by mouth once daily. rosuvastatin (CRESTOR) 20 mg tablet Take 1 tablet by mouth daily at bedtime. albuterol HFA (VENTOLIN HFA) 90 mcg/actuation inhaler Inhale 2 Puffs as instructed every 4 hours as needed for wheezing/shortness of breath. lisinopril (ZESTRIL) 10 mg tablet Take 0.5 tablets by mouth once daily. omeprazole (PRILOSEC) 40 mg capsule Take 1 capsule by mouth once daily. nitroglycerin sublingual (NITROSTAT) 0.4 mg SL tablet Dissolve 1 tablet under the tongue every 5 minutes as needed for chest pain. pregabalin (LYRICA) 100 mg capsule Take 1 capsule by mouth twice daily for 90 days. traMADol (ULTRAM) 50 mg tablet Take 50 mg by mouth twice daily. Cholecalciferol, Vitamin D3, 2,000 unit cap Take 1 tablet by mouth once daily. No current facility-administered medications for this visit. ALLERGIES: Iodine [Contrast Dye] and Lipitor [Atorvastatin Calcium] PERSONAL HISTORY: SOCIAL HISTORY Social History Tobacco Use Smoking status: Every Day Years: 50 Types: Cigarettes Last attempt to quit: 12/08/2017 Years since quittin.9 Smokeless tobacco: Never Tobacco comments: Reports 2.5 cigarettes daily as of [id number] Substance Use Topics Alcohol use: No Comment: sober since 01/2019 Drug use: No Comment: none in many yrs FAMILY HISTORY: FAMILY HISTORY FAMILY HISTORY Problem Relation Age of Onset Heart Father from heart attack, age 50 Hyperlipidemia Father Hypertension Father Hypertension Mother Blood Disease Mother ITP Thyroid Sister Cancer Maternal Grandmother colon Heart Paternal Grandfather Heart Paternal Uncle Cancer Maternal Uncle brain REVIEW OF SYMPTOMS: The review of systems data was entered by the nurse and reviewed by ks Nursing Notes: Keeley Fountain RN 11/24/2023 1:04 PM Addendum REVIEW OF SYSTEMS: General: The patient denies fatigue, denies weight loss, denies weight gain, denies feeling hot, and denies feelings of cold. Eyes: The patient denies glaucoma, denies eye injury/surgery, wears glasses or contacts. Ear/Nose/Throat: The patient NOTES allergies, denies hayfever, denies ear infections, and denies bloody noses. Cardiovascular: The patient denies chest pain, denies heart disease, NOTES high blood pressure,denies cardiac stent, denies prior heart attack, denies irregular heart beat, NOTES high cholesterol, denies poor circulation, denies heart failure, other cardiac issues, denies claudication, denies cold feet, denies peripheral arterial stent. Respiratory: The patient denies tuberculosis, denies pneumonia, denies frequent cough, denies pulmonary embolism, NOTES shortness of breath, and NOTES COPD . Gastrointestinal: The patient denies difficulty swallowing, NOTES acid reflux, denies ulcers, denies vomiting, denies jaundice/hepatitis, denies gallbladder problems, denies black or tarry stools, denies hemorrhoids, denies bleeding from rectum, denies diverticulitis, denies constipation, denies diarrhea, denies loss of stool control, and denies hernias. Kidney/Bladder: The patient denies kidney stones, denies urine infections, and denies bloody urine. Skin: The patient denies a history of skin cancer, denies bleeding/changing moles, and denies a history of skin rash. Neurologic: The patient denies a history of epilepsy/convulsions, denies headaches, denies head/spinal injuries, and denies stroke/TIA. Psychiatric: The patient denies psychiatric medications, NOTES depression, and denies voices, denies substance abuse. Endocrine: The patient denies thyroid disorders, denies diabetes, and denies hormonal problems. Hematologic: The patient denies a history of bruising, denies bleeding, and NOTES anemia, denies blood clots. Infections: The patient denies a history of measles and mumps, denies rheumatic fever, and denies sexually transmitted diseases. Musculoskeletal: The patient denies back pain/injury, NOTES back problems, denies sciatica, denies knee/foot trouble, denies arthritis, or denies gout. When was patient's last Mammogram screening? 06/10/2023 Last Colonoscopy: 10/22/2012 Keeley Fountain RN PHYSICAL EXAMINATION: General: The patient is 63 year old female, well nourished, well hydrated in no acute distress. The patient is oriented to time, place, and person. VITALS: Last menstrual period 08/02/2005. There is no height or weight on file to calculate BMI. HEENT: Normal cephalic, ataumatic, pupils are equally round, sclera are anicteric, mucous membranes are moist, oropharynx is clear. Neck has no masses, asymmetry or lymphadenopathy. Thyroid is unremarkable. Respiratory: Clear to auscultation and percussion. Normal respiratory excursion and pattern. Cardiac: Examination is regular rate and rhythm. Abdominal exam: Soft, nontender, with no palpable masses. No hepatosplenomegaly. No palpable hernias. Rectal exam: exam deferred Extremities: no clubbing, cyanosis or edema. No adenopathy. Other: LABORATORY VALUES: As Noted RADIOLOGIC STUDIES: As Noted Assessment IMPRESSION: History of tubulovillous adenoma PLAN: I plan to perform lower endoscopy. We discussed the risks and benefits of the planned endoscopy. I have informed the patient that complications can occur including failure to complete the endoscopy and perforation. The patient had the opportunity to ask questions concerning the planned endoscopy. My staff has also explained the procedure to the patient in understandable terms and has given the patient printed material concerning the procedure. The patient freely consents to surgery. I plan to use golytely bowel preparation for endoscopy The patient left she had talked to Alisson Chaparro our clinical review nurse and noted that she was supposed to follow-up after a abnormal mammogram demonstrating microcalcification. The mammogram in 2021 the recommended biopsy for was felt to be pleomorphic microcalcifications. She was not able to get the procedure done. She then had a follow-up mammogram which was read as BI-RADS category #1. My opinion was that the site was stable and I agree she does not require biopsy at this time. She should have her follow-up annual screening. Attempted to call the patient but was unable to get an answer on her phone. Diagnoses: (D36.9) Tubulovillous adenoma (primary encounter diagnosis) (Z12.11) Screening for colon cancer My findings have been communicated to Dr. Negrito Wilburn MD via shared medical record. This note will be forwarded to Dr. Negrito Wilburn MD. Return to Clinic: The patient is instructed to follow-up with me after the testing has been completed. Alfred Wills MD HISTORY AND PHYSICAL Molly Madison Rocky 1960 REFERRING PHYSICIAN: Negrito Wilburn,* CHIEF COMPLAINT: Personal history of colon polyps HPI: The patient is a 63 year old female referred for endoscopy. Molly notes no current colon complaints The patient notes no upper GI complaints Molly has undergone prior endoscopy. She underwent colonoscopy by Dr. Rk Galeas in 2012 which returned as a tubulovillous adenoma with high-grade dysplasia in the descending colon. Polyp was noted to be 25 mm in size. She then had a 7 mm polyp removed in 2014 which returned as a hyperplastic polyp.. She then had follow-up colonoscopy in 2019 which was unremarkable. It was recommended she have a 5-year follow-up colonoscopy. The patient is being seen by me today at the request of Dr. Negrito Wilburn MD for my opinion and advice regarding follow-up for history of a tubulovillous adenoma. PAST MEDICAL HISTORY PAST MEDICAL HISTORY Diagnosis Date Abnormal glandular Papanicolaou smear of cervix Abn. Pap smear (cervix) Bulimia Chronic lower back pain Dr. Hall Colon polyps hyperplastic polyp 2014 COPD (chronic obstructive pulmonary disease) (HCC) 02/16/2023 Depression Diaphragmatic hernia without mention of obstruction or gangrene Esophageal reflux 06/09/2005 Family history of coronary artery disease Fatty liver 10/19/2023 Fibromyalgia History of alcohol dependence ([facility]) History of drug abuse ([facility]) marijuana, cocaine, acid, methamphetamines, speed. Sober since age 20s Hypertension Iron deficiency anemia Lumbar stenosis with neurogenic claudication Mononucleosis Nephrolithiasis PAD (peripheral artery disease) ([facility]) Prediabetes Pure hypercholesterolemia 06/09/2005 Tobacco use PAST SURGICAL HISTORY PAST SURGICAL HISTORY Procedure Laterality Date COLONOSCOPY FLX DX W/COLLJ SPEC WHEN PFRMD 07/23/13 Colonoscopy COLONOSCOPY FLX DX W/COLLJ SPEC WHEN PFRMD 01/14/2015 Colonoscopy, repeat in 3 years COLONOSCOPY FLX DX W/COLLJ SPEC WHEN PFRMD 10/22/2018 Colonoscopy EGD TRANSORAL BIOPSY SINGLE/MULTIPLE 07/08/09 ERCP DESTRUCTION/LITHOTRIPSY CALCULI ANY METHOD 2012 ESOPHAGOGASTRODUODENOSCOPY TRANSORAL DIAGNOSTIC 07/23/13 EGD PAST SURGICAL HISTORY OF 02/2018 L3-4 decompression, TLIF and fusion STEREOTACTIC CORE BIOPSY 02/26/07 left breast TOTAL ABDOMINAL HYSTERECT W/WO RMVL TUBE OVARY Hysterectomy, SEKOU. precancerous cells CURRENT MEDICATIONS Current Outpatient Medications Medication Sig cephALEXin (KEFLEX) 500 mg capsule Take 1 capsule by mouth two times a day for 7 days. oxybutynin XL (DITROPAN XL) 10 mg 24 hr tablet Take 1 tablet by mouth once daily. budesonide-formoterol (SYMBICORT) 80-4.5 mcg/actuation inhaler Inhale 2 Puffs as instructed two times a day. metFORMIN (GLUCOPHAGE) 500 mg tablet Take 1 tablet by mouth two times a day with meals. . DULoxetine (CYMBALTA) 60 mg capsule Take 1 capsule by mouth once daily. patient assistance buPROPion XL (WELLBUTRIN XL) 300 mg 24 hr tablet Take 1 tablet by mouth once daily. rosuvastatin (CRESTOR) 20 mg tablet Take 1 tablet by mouth daily at bedtime. albuterol HFA (VENTOLIN HFA) 90 mcg/actuation inhaler Inhale 2 Puffs as instructed every 4 hours as needed for wheezing/shortness of breath. lisinopril (ZESTRIL) 10 mg tablet Take 0.5 tablets by mouth once daily. omeprazole (PRILOSEC) 40 mg capsule Take 1 capsule by mouth once daily. nitroglycerin sublingual (NITROSTAT) 0.4 mg SL tablet Dissolve 1 tablet under the tongue every 5 minutes as needed for chest pain. pregabalin (LYRICA) 100 mg capsule Take 1 capsule by mouth twice daily for 90 days. traMADol (ULTRAM) 50 mg tablet Take 50 mg by mouth twice daily. Cholecalciferol, Vitamin D3, 2,000 unit cap Take 1 tablet by mouth once daily. No current facility-administered medications for this visit. ALLERGIES: Iodine [Contrast Dye] and Lipitor [Atorvastatin Calcium] PERSONAL HISTORY: SOCIAL HISTORY Social History Tobacco Use Smoking status: Every Day Years: 50 Types: Cigarettes Last attempt to quit: 12/08/2017 Years since quittin.9 Smokeless tobacco: Never Tobacco comments: Reports 2.5 cigarettes daily as of [id number] Substance Use Topics Alcohol use: No Comment: sober since 01/2019 Drug use: No Comment: none in many yrs FAMILY HISTORY: FAMILY HISTORY FAMILY HISTORY Problem Relation Age of Onset Heart Father from heart attack, age 50 Hyperlipidemia Father Hypertension Father Hypertension Mother Blood Disease Mother ITP Thyroid Sister Cancer Maternal Grandmother colon Heart Paternal Grandfather Heart Paternal Uncle Cancer Maternal Uncle brain REVIEW OF SYMPTOMS: The review of systems data was entered by the nurse and reviewed by me Nursing Notes: Keeley Fountain RN 11/24/2023 1:04 PM Addendum REVIEW OF SYSTEMS: General: The patient denies fatigue, denies weight loss, denies weight gain, denies feeling hot, and denies feelings of cold. Eyes: The patient denies glaucoma, denies eye injury/surgery, wears glasses or contacts. Ear/Nose/Throat: The patient NOTES allergies, denies hayfever, denies ear infections, and denies bloody noses. Cardiovascular: The patient denies chest pain, denies heart disease, NOTES high blood pressure,denies cardiac stent, denies prior heart attack, denies irregular heart beat, NOTES high cholesterol, denies poor circulation, denies heart failure, other cardiac issues, denies claudication, denies cold feet, denies peripheral arterial stent. Respiratory: The patient denies tuberculosis, denies pneumonia, denies frequent cough, denies pulmonary embolism, NOTES shortness of breath, and NOTES COPD . Gastrointestinal: The patient denies difficulty swallowing, NOTES acid reflux, denies ulcers, denies vomiting, denies jaundice/hepatitis, denies gallbladder problems, denies black or tarry stools, denies hemorrhoids, denies bleeding from rectum, denies diverticulitis, denies constipation, denies diarrhea, denies loss of stool control, and denies hernias. Kidney/Bladder: The patient denies kidney stones, denies urine infections, and denies bloody urine. Skin: The patient denies a history of skin cancer, denies bleeding/changing moles, and denies a history of skin rash. Neurologic: The patient denies a history of epilepsy/convulsions, denies headaches, denies head/spinal injuries, and denies stroke/TIA. Psychiatric: The patient denies psychiatric medications, NOTES depression, and denies voices, denies substance abuse. Endocrine: The patient denies thyroid disorders, denies diabetes, and denies hormonal problems. Hematologic: The patient denies a history of bruising, denies bleeding, and NOTES anemia, denies blood clots. Infections: The patient denies a history of measles and mumps, denies rheumatic fever, and denies sexually transmitted diseases. Musculoskeletal: The patient denies back pain/injury, NOTES back problems, denies sciatica, denies knee/foot trouble, denies arthritis, or denies gout. When was patient's last Mammogram screening? 06/10/2023 Last Colonoscopy: 10/22/2012 Keeley Fountain RN PHYSICAL EXAMINATION: General: The patient is 63 year old female, well nourished, well hydrated in no acute distress. The patient is oriented to time, place, and person. VITALS: Last menstrual period 08/02/2005. There is no height or weight on file to calculate BMI. HEENT: Normal cephalic, ataumatic, pupils are equally round, sclera are anicteric, mucous membranes are moist, oropharynx is clear. Neck has no masses, asymmetry or lymphadenopathy. Thyroid is unremarkable. Respiratory: Clear to auscultation and percussion. Normal respiratory excursion and pattern. Cardiac: Examination is regular rate and rhythm. Abdominal exam: Soft, nontender, with no palpable masses. No hepatosplenomegaly. No palpable hernias. Rectal exam: exam deferred Extremities: no clubbing, cyanosis or edema. No adenopathy. Other: LABORATORY VALUES: As Noted RADIOLOGIC STUDIES: As Noted Assessment IMPRESSION: History of tubulovillous adenoma PLAN: I plan to perform lower endoscopy. We discussed the risks and benefits of the planned endoscopy. I have informed the patient that complications can occur including failure to complete the endoscopy and perforation. The patient had the opportunity to ask questions concerning the planned endoscopy. My staff has also explained the procedure to the patient in understandable terms and has given the patient printed material concerning the procedure. The patient freely consents to surgery. I plan to use golytely bowel preparation for endoscopy The patient left she had talked to Alisson Chaparro our clinical review nurse and noted that she was supposed to follow-up after a abnormal mammogram demonstrating microcalcification. The mammogram in 2021 the recommended biopsy for was felt to be pleomorphic microcalcifications. She was not able to get the procedure done. She then had a follow-up mammogram which was read as BI-RADS category #1. My opinion was that the site was stable and I agree she does not require biopsy at this time. She should have her follow-up annual screening. Attempted to call the patient but was unable to get an answer on her phone. Diagnoses: (D36.9) Tubulovillous adenoma (primary encounter diagnosis) (Z12.11) Screening for colon cancer My findings have been communicated to Dr. Negrito Wilburn MD via shared medical record. This note will be forwarded to Dr. Negrito Wilburn MD. Return to Clinic: The patient is instructed to follow-up with me after the testing has been completed. Alfred Wills MD documented in this encounter [facility] 03-20-2024 Telephone encounter Note Prescription Refill Information The patient has been identified by name and date of : Yes Caregiver verified no other encounters exist for this prescription request: Yes Caregiver confirmed with patient/requestor that no other refills are due, in the near future, with this provider at this time: Yes The last office visit in the department: 12/11/23 Does the patient have a future office visit with this provider/department: Yes Requested Prescriptions Pending Prescriptions Disp Refills DULoxetine (CYMBALTA) 60 mg capsule 90 capsule 1 Sig: Take 1 capsule by mouth once daily. patient assistance Heather Umaña LPN March 20, 2024 10:[address] [facility] 03-20-2024 Miscellaneous Notes Prescription Refill Information The patient has been identified by name and date of : Yes Caregiver verified no other encounters exist for this prescription request: Yes Caregiver confirmed with patient/requestor that no other refills are due, in the near future, with this provider at this time: Yes The last office visit in the department: 12/11/23 Does the patient have a future office visit with this provider/department: Yes Requested Prescriptions Pending Prescriptions Disp Refills DULoxetine (CYMBALTA) 60 mg capsule 90 capsule 1 Sig: Take 1 capsule by mouth once daily. patient assistance Heather Umaña LPN March 20, 2024 10:55 AM documented in this encounter [facility] 03-13-2024 Telephone encounter Note Prescription Refill Information The patient has been identified by name and date of : Yes Caregiver verified no other encounters exist for this prescription request: Yes Caregiver confirmed with patient/requestor that no other refills are due, in the near future, with this provider at this time: Yes The last office visit in the department: 12-11-23 Does the patient have a future office visit with this provider/department: No Requested Prescriptions Pending Prescriptions Disp Refills buPROPion XL (WELLBUTRIN XL) 300 mg 24 hr tablet 90 tablet 1 Sig: Take 1 tablet by mouth once daily. rosuvastatin (CRESTOR) 20 mg tablet 90 tablet 1 Sig: Take 1 tablet by mouth daily at bedtime. Tete Berrios [facility] March 13, 2024 4:[address] [facility] 03-13-2024 Miscellaneous Notes Prescription Refill Information The patient has been identified by name and date of : Yes Caregiver verified no other encounters exist for this prescription request: Yes Caregiver confirmed with patient/requestor that no other refills are due, in the near future, with this provider at this time: Yes The last office visit in the department: 12-11-23 Does the patient have a future office visit with this provider/department: No Requested Prescriptions Pending Prescriptions Disp Refills buPROPion XL (WELLBUTRIN XL) 300 mg 24 hr tablet 90 tablet 1 Sig: Take 1 tablet by mouth once daily. rosuvastatin (CRESTOR) 20 mg tablet 90 tablet 1 Sig: Take 1 tablet by mouth daily at bedtime. Tete Berrios [facility] March 13, 2024 4:21 PM documented in this encounter [facility] 03-11-2024 Telephone encounter Note Patient was seen on March 11, [address] Major. The following test(s) were ordered: Stress test Please call patient to schedule testing. Thank you! Fernando Staton MA [facility] 03-11-2024 Miscellaneous Notes Patient was seen on March 11, [address] Major. The following test(s) were ordered: Stress test Please call patient to schedule testing. Thank you! Fernando Staton MA documented in this encounter [facility] 03-11-2024 Note HNO ID: [id number] Author: LORENZA MAJOR, DO Service: ? Author Type: Physician Type: Progress Notes Filed: 03/11/2024 14:04 Note Text: [facility] SE[facility]IONAL CARDIOLOGY [facility] OUTPATIENT VISIT DATE March 11, 2024 PRIMARY CARE PHYSICIAN: Negrito Wilburn [address] [place] [address] HISTORY OF PRESENT ILLNESS: Ms. Hidalgo is a 63 year old female. The patient presents for evaluation treatment options of coronary calcification seen on CT scanning. The patient notes dyspnea occurring with exertion abating with rest and increased fatigue over the last 2 to 3 months. States she needs to sleep at times during the day. This was not present a year ago when she had her last nuclear stress test which was normal/low risk. She denies chest discomfort, orthopnea, paroxysmal nocturnal dyspnea, palpitations, near-syncope or syncope. The patient is single and lives at home with her 86-year-old mother. She has no children. 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 She is a current smoker, social drinker. She does not exercise on a regular basis as she is somewhat hampered by a degenerative lower spine. She states she awakens feeling rested. Cardiac risk factors: Age, postmenopausal female, hypertension, hyperlipidemia, prediabetes, tobacco abuse, known CAD i.e. coronary calcification seen on CT scanning Impression: 1. Coronary calcification seen on CT scanning according to probable CAD 2. Dyspnea exertion 3. Abnormal EKG 4. Hypertension 5. Hyperlipidemia 6. Prediabetes 7. History of COPD EKG performed today demonstrates sinus rhythm at 81 bpm with age undetermined anterior infarct. PLAN AND RECOMMENDATIONS: The patient will have nuclear stress imaging with Lexiscan updated due to her change in symptoms. Her EKG is similar to previous. In the absence of findings, will look to other noncardiac causes of her symptoms such as deconditioning, sleep apnea, COPD, etc. Heart rate, blood pressure recent cholesterol profile are favorable for which we have recommended no additions or changes to her current medical regimen. Given her ongoing symptoms, we will follow-up with her in 2 to 3 months time regardless and should she continue be symptomatic or worse, consideration may need to be given to visualize her coronary anatomy. Dietary and lifestyle modification was reemphasized to facilitate risk factor reduction. Vitals: BP 118/84 Pulse 81 Ht 152.4 cm (5') Wt 60.3 kg (132 lb 15 oz) LMP 08/02/2005 SpO2 95% BMI 25.96 kg/m? Physical Exam Vitals reviewed. Constitutional: General: She is not in acute distress. Appearance: Normal appearance. She is well-developed. HENT: Head: Normocephalic and atraumatic. Nose: Nose normal. Eyes: General: No scleral icterus. Right eye: No discharge. Left eye: No discharge. Pupils: Pupils are equal, round, and reactive to light. Neck: Thyroid: No thyromegaly. Vascular: No carotid bruit or JVD. Cardiovascular: Rate and Rhythm: Normal rate and regular rhythm. Heart sounds: Murmur heard. Systolic murmur is present with a grade of 1/6. No friction rub. No gallop. Pulmonary: Effort: Pulmonary effort is normal. No respiratory distress. Breath sounds: Normal breath sounds. No wheezing or rales. Abdominal: General: Bowel sounds are normal. Palpations: Abdomen is soft. Musculoskeletal: General: Normal range of motion. Cervical back: Normal range of motion and neck supple. Skin: General: Skin is warm and dry. Capillary Refill: Capillary refill takes less than 2 seconds. Coloration: Skin is not pale. Neurological: Mental Status: She is alert and oriented to person, place, and time. Cranial Nerves: No cranial nerve deficit. Psychiatric: Behavior: Behavior normal. Thought Content: Thought content normal. Judgment: Judgment normal. Review of Systems Constitutional: Positive for fatigue. Negative for activity change. HENT: Negative for ear pain and facial swelling. Eyes: Negative for pain and discharge. Respiratory: Positive for shortness of breath. Negative for chest tightness. Cardiovascular: Negative for chest pain, palpitations and leg swelling. Gastrointestinal: Negative for abdominal pain, blood in stool, nausea and vomiting. Endocrine: Negative for cold intolerance and heat intolerance. Genitourinary: Negative for frequency and hematuria. Musculoskeletal: Negative for arthralgias and gait problem. Skin: Negative for color change, pallor and rash. Allergic/Immunologic: Negative for immunocompromised state. Neurological: Negative for dizziness, syncope, light-headedness and headaches. Hematological: Negative for adenopathy. Does not bruise/bleed easily. Psychiatric/Behavioral: Negative for confusion. The patient is not nervous/anxious. PAST MEDICAL HISTORY Diagnosis Date Abnor (more content not included)... [facility] 03-11-2024 History of Present illness Narrative Images from the original note were not included. [facility] SECTION OF REGIONAL CARDIOLOGY [facility] OUTPATIENT VISIT DATE March 11, 2024 PRIMARY CARE PHYSICIAN: Negrito Wilburn [address] [place] [address] HISTORY OF PRESENT ILLNESS: Ms. Hidalgo is a 63 year old female. The patient presents for evaluation treatment options of coronary calcification seen on CT scanning. The patient notes dyspnea occurring with exertion abating with rest and increased fatigue over the last 2 to 3 months. States she needs to sleep at times during the day. This was not present a year ago when she had her last nuclear stress test which was normal/low risk. She denies chest discomfort, orthopnea, paroxysmal nocturnal dyspnea, palpitations, near-syncope or syncope. The patient is single and lives at home with her 86-year-old mother. She has no children. 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 She is a current smoker, social drinker. She does not exercise on a regular basis as she is somewhat hampered by a degenerative lower spine. She states she awakens feeling rested. Cardiac risk factors: Age, postmenopausal female, hypertension, hyperlipidemia, prediabetes, tobacco abuse, known CAD i.e. coronary calcification seen on CT scanning Impression: 1. Coronary calcification seen on CT scanning according to probable CAD 2. Dyspnea exertion 3. Abnormal EKG 4. Hypertension 5. Hyperlipidemia 6. Prediabetes 7. History of COPD EKG performed today demonstrates sinus rhythm at 81 bpm with age undetermined anterior infarct. PLAN AND RECOMMENDATIONS: The patient will have nuclear stress imaging with Lexiscan updated due to her change in symptoms. Her EKG is similar to previous. In the absence of findings, will look to other noncardiac causes of her symptoms such as deconditioning, sleep apnea, COPD, etc. Heart rate, blood pressure recent cholesterol profile are favorable for which we have recommended no additions or changes to her current medical regimen. Given her ongoing symptoms, we will follow-up with her in 2 to 3 months time regardless and should she continue be symptomatic or worse, consideration may need to be given to visualize her coronary anatomy. Dietary and lifestyle modification was reemphasized to facilitate risk factor reduction. Vitals: BP 118/84 Pulse 81 Ht 152.4 cm (5') Wt 60.3 kg (132 lb 15 oz) LMP 08/02/2005 SpO2 95% BMI 25.96 kg/m Physical Exam Vitals reviewed. Constitutional: General: She is not in acute distress. Appearance: Normal appearance. She is well-developed. HENT: Head: Normocephalic and atraumatic. Nose: Nose normal. Eyes: General: No scleral icterus. Right eye: No discharge. Left eye: No discharge. Pupils: Pupils are equal, round, and reactive to light. Neck: Thyroid: No thyromegaly. Vascular: No carotid bruit or JVD. Cardiovascular: Rate and Rhythm: Normal rate and regular rhythm. Heart sounds: Murmur heard. Systolic murmur is present with a grade of 1/6. No friction rub. No gallop. Pulmonary: Effort: Pulmonary effort is normal. No respiratory distress. Breath sounds: Normal breath sounds. No wheezing or rales. Abdominal: General: Bowel sounds are normal. Palpations: Abdomen is soft. Musculoskeletal: General: Normal range of motion. Cervical back: Normal range of motion and neck supple. Skin: General: Skin is warm and dry. Capillary Refill: Capillary refill takes less than 2 seconds. Coloration: Skin is not pale. Neurological: Mental Status: She is alert and oriented to person, place, and time. Cranial Nerves: No cranial nerve deficit. Psychiatric: Behavior: Behavior normal. Thought Content: Thought content normal. Judgment: Judgment normal. Review of Systems Constitutional: Positive for fatigue. Negative for activity change. HENT: Negative for ear pain and facial swelling. Eyes: Negative for pain and discharge. Respiratory: Positive for shortness of breath. Negative for chest tightness. Cardiovascular: Negative for chest pain, palpitations and leg swelling. Gastrointestinal: Negative for abdominal pain, blood in stool, nausea and vomiting. Endocrine: Negative for cold intolerance and heat intolerance. Genitourinary: Negative for frequency and hematuria. Musculoskeletal: Negative for arthralgias and gait problem. Skin: Negative for color change, pallor and rash. Allergic/Immunologic: Negative for immunocompromised state. Neurological: Negative for dizziness, syncope, light-headedness and headaches. Hematological: Negative for adenopathy. Does not bruise/bleed easily. Psychiatric/Behavioral: Negative for confusion. The patient is not nervous/anxious. PAST MEDICAL HISTORY Diagnosis Date Abnormal glandular Papanicolaou smear of cervix Abn. Pap smear (cervix) Bulimia Chronic lower back pain Dr. Hall Colon polyps hyperplastic polyp 2014 COPD (chronic obstructive pulmonary disease) (HCC) 02/16/2023 Depression Diaphragmatic hernia without mention of obstruction or gangrene Esophageal reflux 06/09/2005 Family history of coronary artery disease Fatty liver 10/19/2023 Fibromyalgia History of alcohol dependence ([facility]) History of drug abuse ([facility]) marijuana, cocaine, acid, methamphetamines, speed. Sober since age 20s Hypertension Iron deficiency anemia Lumbar stenosis with neurogenic claudication Mononucleosis Nephrolithiasis PAD (peripheral artery disease) ([facility]) Prediabetes Pure hypercholesterolemia 06/09/2005 Tobacco use PAST SURGICAL HISTORY Procedure Laterality Date COLONOSCOPY FLX DX W/COLLJ SPEC WHEN PFRMD 07/23/13 Colonoscopy COLONOSCOPY FLX DX W/COLLJ SPEC WHEN PFRMD 01/14/2015 Colonoscopy, repeat in 3 years COLONOSCOPY FLX DX W/COLLJ SPEC WHEN PFRMD 10/22/2018 Colonoscopy EGD TRANSORAL BIOPSY SINGLE/MULTIPLE 07/08/09 ERCP DESTRUCTION/LITHOTRIPSY CALCULI ANY METHOD 2012 ESOPHAGOGASTRODUODENOSCOPY TRANSORAL DIAGNOSTIC 07/23/13 EGD PAST SURGICAL HISTORY OF 02/2018 L3-4 decompression, TLIF and fusion STEREOTACTIC CORE BIOPSY 02/26/07 left breast TOTAL ABDOMINAL HYSTERECT W/WO RMVL TUBE OVARY Hysterectomy, SEKOU. precancerous cells Social History Tobacco Use Smoking status: Every Day Years: 49 Types: Cigarettes Last attempt to quit: 12/08/2017 Years since quittin.2 Smokeless tobacco: Never Tobacco comments: Reports 2.5 cigarettes daily as of [id number] Vaping Use Vaping Use: Never used Substance Use Topics Alcohol use: No Comment: sober since 01/2019 Drug use: No Comment: none in many yrs FAMILY HISTORY Problem Relation Age of Onset Heart Father from heart attack, age 50 Hyperlipidemia Father Hypertension Father Hypertension Mother Blood Disease Mother ITP Thyroid Sister Cancer Maternal Grandmother colon Heart Paternal Grandfather Heart Paternal Uncle Cancer Maternal Uncle brain ALLERGIES Allergen Reactions Iodine [Contrast Dy* Swelling PT HAD A REACTION OF SWELLING IN THROAT,TROUBLE BREATHING 24 HRS AFTER INJECTION OF IV DYE FOR A CT UROGRAM. KK Lipitor [Atorvastat* Other: See Comments Skin turned yellow CURRENT MEDICATIONS: budesonide-formoterol (SYMBICORT) 80-4.5 mcg/actuation inhaler Inhale 2 Puffs as instructed two times a day. metFORMIN (GLUCOPHAGE) 500 mg tablet Take 1 tablet by mouth two times a day with meals. . DULoxetine (CYMBALTA) 60 mg capsule Take 1 capsule by mouth once daily. patient assistance buPROPion XL (WELLBUTRIN XL) 300 mg 24 hr tablet Take 1 tablet by mouth once daily. rosuvastatin (CRESTOR) 20 mg tablet Take 1 tablet by mouth daily at bedtime. albuterol HFA (VENTOLIN HFA) 90 mcg/actuation inhaler Inhale 2 Puffs as instructed every 4 hours as needed for wheezing/shortness of breath. lisinopril (ZESTRIL) 10 mg tablet Take 0.5 tablets by mouth once daily. omeprazole (PRILOSEC) 40 mg capsule Take 1 capsule by mouth once daily. nitroglycerin sublingual (NITROSTAT) 0.4 mg SL tablet Dissolve 1 tablet under the tongue every 5 minutes as needed for chest pain. traMADol (ULTRAM) 50 mg tablet Take 50 mg by mouth twice daily. Cholecalciferol, Vitamin D3, 2,000 unit cap Take 1 tablet by mouth once daily. oxybutynin ER (DITROPAN XL) 10 mg 24 hr tablet TAKE 1 TABLET BY MOUTH EVERY DAY (Patient not taking: Reported on 03/11/2024) pregabalin (LYRICA) 100 mg capsule Take 1 capsule by mouth twice daily for 90 days. Lorenza Major DO, FACC, FAC Automatic Grinder Operator, [facility] Automatic Grinder Operator, [facility] Automatic Grinder Operator, [facility] Automatic Grinder Operator, [facility] Automatic Grinder Operator, [facility] Clinical Loss Prevention Detective Profressor of Medicine, [facility] Staff Permastone Applicator, Mirza Tomisich Department of Cardiovascular Medicine/Heart and Vascular [place], [facility] Please note: This note has been produced using speech recognition software and may contain errors related to that system including gladys, punctuation, spelling, words, gender and phrases that may be inappropriate. documented in this encounter [facility] 02-21-2024 Telephone encounter Note TC to patient who verbalized understanding and will continue Metformin as prescribed. DEANNA Cortes [facility] 02-21-2024 Miscellaneous Notes TC to patient who verbalized understanding and will continue Metformin as prescribed. DEANNA Cortes Sorry My error. She should continue it. I read my note wrong. Jessica Borrero Results below given. Pt reports she was of Metformin before her apt on 12-11-23. At that apt pt reports she was told to go back on Metformin and has been on since 12-11-23. Message below tells her to continue to hold Metformin. Pt has been taking this. Please review and advise pt. Génesis White LPN ----- Message from Jessica Palencia APRN.COLD ROLLING SUPERVISOR sent at 02/21/2024 8:09 AM EDT ----- Kidney function has returned to normal range. Continue to hold the Metformin. Jessica Palencia APRN.KATHLEEN documented in this encounter [facility] 02-21-2024 Telephone encounter Note Sorry My error. She should continue it. I read my note wrong. Jessica Borrero [facility] 02-21-2024 Telephone encounter Note Results below given. Pt reports she was of Metformin before her apt on 12-11-23. At that apt pt reports she was told to go back on Metformin and has been on since 12-11-23. Message below tells her to continue to hold Metformin. Pt has been taking this. Please review and advise pt. Génesis White LPN [facility] 02-21-2024 Telephone encounter Note ----- Message from Jessica Palencia APRN.COLD ROLLING SUPERVISOR sent at 02/21/2024 8:09 AM EDT ----- Kidney function has returned to normal range. Continue to hold the Metformin. Jessica Palencia APRN.KATHLEEN [facility] 12-11-2023 Instructions Jessica Palencia APRN.CNP - 12/11/2023 2:34 PM EDT Come back in January and get kidney function checked Eat low salt, stay hydrated with water. Avoid NSAID products documented in this encounter [facility] 12-11-2023 History of Present illness Narrative 12/07/2023 Patient presents with: Recheck: Follow up SUBJECTIVE: This is a 63 year old that is here today for Above Complaints. Since last office visit has been in good health without ER visits or hospitalizations. HTN: Patient is compliant with meds Yes Monitors bp at home: No. Denies side effects: No. Chest pain: No. Dyspnea: No. Edema: No. Palpitations: No. Syncope: No. Headache: No. Dizziness: No. Prediabetes: has been holding Metformin as recommended due to decreased kidney function. Recent labs show kidney function has returned to normal. Denies NSAID use, polyuria, polydipsia or visual changes. Wants to try Ozempic or Mounjaro for her prediabetes and help with weight loss. Recently has been watching diet more closely. No current exercise regime GERD: taking omeprazole as prescribe without side effects. Denies breakthrough symptoms Depression: taking Cymbalta and Wellbutrin as prescribed without side effects. Not attending counseling. Denies SI, HI or insomnia HYPERLIPIDEMIA: Patient is taking medications: Yes. Patient is watching diet: Yes. Patient denies myalgias: Yes. Patient denies gi upset: Yes Tobacco use: Lung cancer screening completed October, Will be following up with cardiology in December due to her Lung CT showed severe artery calcifications. Also showed patient has a stent on the right coronary artery - per patient she has never had a stent placed. Denies SOB, dyspnea, chest pain, palpitations or leg edema Follows with pain management for hx of chronic back pain. Last office visit about 6-7 days ago. Upcoming screening colonoscopy. PAST MEDICAL HISTORY Diagnosis Date Abnormal glandular Papanicolaou smear of cervix Abn. Pap smear (cervix) Bulimia Chronic lower back pain Dr. Hall Colon polyps hyperplastic polyp 2014 COPD (chronic obstructive pulmonary disease) ([facility]) 02/16/2023 Depression 1980s Diaphragmatic hernia without mention of obstruction or gangrene Esophageal reflux 06/09/2005 Family history of coronary artery disease Fatty liver 10/19/2023 Fibromyalgia History of alcohol dependence ([facility]) History of drug abuse ([facility]) marijuana, cocaine, acid, methamphetamines, speed. Sober since age 20s Hypertension Iron deficiency anemia Lumbar stenosis with neurogenic claudication Mononucleosis Nephrolithiasis PAD (peripheral artery disease) ([facility]) Prediabetes Pure hypercholesterolemia 06/09/2005 Tobacco use ALLERGIES Iodine [Contrast Dye] and Lipitor [Atorvastatin Calcium] MEDICATIONS Current Outpatient Medications Medication Sig oxybutynin XL (DITROPAN XL) 10 mg 24 hr tablet Take 1 tablet by mouth once daily. budesonide-formoterol (SYMBICORT) 80-4.5 mcg/actuation inhaler Inhale 2 Puffs as instructed two times a day. metFORMIN (GLUCOPHAGE) 500 mg tablet Take 1 tablet by mouth two times a day with meals. . DULoxetine (CYMBALTA) 60 mg capsule Take 1 capsule by mouth once daily. patient assistance buPROPion XL (WELLBUTRIN XL) 300 mg 24 hr tablet Take 1 tablet by mouth once daily. rosuvastatin (CRESTOR) 20 mg tablet Take 1 tablet by mouth daily at bedtime. albuterol HFA (VENTOLIN HFA) 90 mcg/actuation inhaler Inhale 2 Puffs as instructed every 4 hours as needed for wheezing/shortness of breath. lisinopril (ZESTRIL) 10 mg tablet Take 0.5 tablets by mouth once daily. omeprazole (PRILOSEC) 40 mg capsule Take 1 capsule by mouth once daily. nitroglycerin sublingual (NITROSTAT) 0.4 mg SL tablet Dissolve 1 tablet under the tongue every 5 minutes as needed for chest pain. pregabalin (LYRICA) 100 mg capsule Take 1 capsule by mouth twice daily for 90 days. traMADol (ULTRAM) 50 mg tablet Take 50 mg by mouth twice daily. Cholecalciferol, Vitamin D3, 2,000 unit cap Take 1 tablet by mouth once daily. No current facility-administered medications for this visit. Medications and allergies reviewed by this provider. SOCIAL HISTORY Social History Tobacco Use Smoking status: Every Day Years: 50 Types: Cigarettes Last attempt to quit: 12/08/2017 Years since quittin.0 Smokeless tobacco: Never Tobacco comments: Reports 2.5 cigarettes daily as of [id number] Vaping Use Vaping Use: Never used Substance Use Topics Alcohol use: No Comment: sober since 01/2019 Drug use: No Comment: none in many yrs REVIEW OF SYSTEMS All other reviewed and negative other than HPI. OBJECTIVE: BP 122/86 Pulse 84 Resp 18 Wt 60.2 kg (132 lb 12.8 oz) LMP 08/02/2005 SpO2 94% BMI 25.94 kg/m . Vital signs reviewed by this provider. APPEARANCE Well appearing, alert, in no acute distress, well-hydrated, well nourished. EYES conjunctiva and sclera normal. HEART RRR with normal S1 and S2, no murmurs, no gallops, no JVD appreciated LUNG clear to auscultation. No wheezes, rhonchi or rales EXTREMITIES Extremities normal, No deformities, No skin discoloration, and No edema SKIN Skin color, texture, turgor normal, no suspicious rashes or lesions to exposed skin Latest Ref Rng 11/24/2023 Protein, Total 6.3 - 8.0 g/dL 7.1 Albumin 3.9 - 4.9 g/dL 4.4 Calcium 8.5 - 10.2 mg/dL 9.9 Bilirubin, Total 0.2 - 1.3 mg/dL 0.2 Alkaline Phosphatase 34 - 123 U/L 77 AST 13 - 35 U/L 28 ALT 7 - 38 U/L 29 Glucose 74 - 99 mg/dL 105 (H) BUN 7 - 21 mg/dL 12 Creatinine 0.58 - 0.96 mg/dL 0.95 Sodium 136 - 144 mmol/L 140 Potassium 3.7 - 5.1 mmol/L 4.7 Chloride 97 - 105 mmol/L 104 CO2 22 - 30 mmol/L 24 Anion Gap 9 - 18 mmol/L 12 eGFR >=60 mL/min/1.73m 67 Latest Ref Rng 06/17/2022 Total Cholesterol, Nonfasting <200 mg/dL 151 Triglycerides, Nonfasting <150 mg/dL 158 (H) HDL Cholesterol, Nonfasting >39 mg/dL 72 LDL Cholesterol, Nonfasting <100 mg/dL 47 Non HDL Cholesterol, Nonfasting <130 mg/dL 79 VLDL Cholesterol, Nonfasting <30 mg/dL 32 (H) Total Chol/HDL Ratio, Nonfasting <5.10 mg/dL 2.10 LDL/HDL Ratio, Nonfasting <2.54 mg/dL 0.65 Legend: (H) High Legend: (H) High BP Controlled (<130/80) Never done Alpha-1 Antitrypsin Deficiency Screening Never done Colorectal Cancer Screening due on 10/22/2023 Mammogram Screening due on 06/13/2024 Pneumococcal Vaccine(3 of 3 - PPSV23 or PCV20) due on 2024 Annual PCP Team Chronic Disease Visit due on 12/10/2024 DTaP,Tdap,Td Vaccine(2 - Td or Tdap) due on 02/21/2026 Diabetes Screening due on 11/23/2026 Lipid Screening due on 06/17/2027 Spirometry Completed Influenza Vaccine Completed RSV Vaccine Completed Hepatitis C Screening Completed HIV Screening Completed Shingrix Vaccine Completed Covid-19 Vaccine Completed Pap Testing Discontinued HPV Testing Discontinued ASSESSMENT/PLAN: 1. Essential hypertension - ICD9: 401.9, ICD10: I10 (primary diagnosis) - Controlled - Continue current medications - Recommend home blood pressure monitoring, to bring results to next visit - Encouraged sodium restriction, DASH or Mediterranean diet - Recommend regular aerobic exercise - Smoking cessation encouraged; discussed risks to health and quitting strategies. Patient is not ready to quit - Follow up in 6 months for hypertension visit 2. Prediabetes - ICD9: 790.29, ICD10: R73.03 - discussed GLP's would not be indicated for prediabetes and her BMI is not high enough to require this medication - restart metformin and recheck kidney function in 8 weeks 3. Hyperlipidemia, mixed - ICD9: 272.2, ICD10: E78.2 - Controlled - Continue current medications - Counseled on healthy diet and regular exercise - Follow up in 6 months, sooner should any other issues arise. 4. Gastroesophageal reflux disease, unspecified whether esophagitis present - ICD9: 530.81, ICD10: K21.9 - stable on current regime 5. Tobacco use disorder - ICD9: 305.1, ICD10: F17.200 - Cessation encouraged. - Physiologic and physical aspects of tobacco addiction as well as strategies for quitting were discussed. - Counseling was given focusing on the harmful effects of this addiction especially given the patient's medical condition(s) which will be worsened because of the chemicals in tobacco. 6. Recurrent major depressive disorder, in partial remission (HCC) - ICD9: 296.35, ICD10: F33.41 - stable on current regime 7. Lumbar stenosis with neurogenic claudication - ICD9: 724.03, ICD10: M48.062 - continue with pain management 8. PROSPER (acute kidney injury) (HCC) - ICD9: 584.9, ICD10: N17.9 - resolved, will recheck kidney function in 8 weeks - BASIC METABOLIC PNL Jessica Palencia APRN.COLD ROLLING SUPERVISOR Prescription instructions reviewed with patient as applicable. Patient advised if symptoms do not improve or if symptoms worsen sooner, to contact their primary care physician. Potential red flag symptoms discussed with the patient. Reviewed appropriate action plan to take if red flag symptoms occur. Patient agreeable to treatment plan. Medical Decision Making: Problems: Moderate: 2+ stable chronic illnesses Risk: Moderate: Drug management Medical Decision Making Level: 4 - Moderate documented in this encounter [facility] 11-24-2023 Telephone encounter Note 01/09/[address] [facility] 11-24-2023 Miscellaneous Notes 01/09/2024 colon asc documented in this encounter [facility] 11-24-2023 Instructions Alfred Wills MD - 11/24/2023 1:32 PM EST Images from the original note were not included. Bowel Preparation Instructions for: Golytely, Nulytely, Trilyte or Colyte (polyethylene glycol 3350 and electrolytes) IF YOU DO NOT FOLLOW THESE DIRECTIONS, YOUR COLONOSCOPY WILL BE CANCELLED. [place] Instructions: Your bowel must be empty so that your doctor can clearly view your colon. Follow all of the instructions in this handout EXACTLY as they are written. Do NOT eat any solid food the ENTIRE day before your colonoscopy. Drink only clear liquids. Buy your bowel preparation at least 5 days before your colonoscopy. TRANSPORTATION on the Day of Your Exam A responsible person MUST be present with you at Check In prior to your colonoscopy and REMAIN in the endoscopy area until you are discharged. You are NOT ALLOWED to drive, take a taxi or bus, or leave the Endoscopy Center ALONE. If you do not have a responsible sweeper driver (family member or friend) with you to take you home, your exam cannot be done with sedation and will be cancelled. Please bring a list of all of your current medications, including any Over-the Counter medications with you. Medications If you take insulin, diabetic medications or blood thinners such as Coumadin (warfarin), Plavix (clopidogrel), Ticlid (ticlopidine hydrochloride), Agrylin (anagrelide), Xarelto (Rivaroxaban), Pradaxa (Dabigatran), Eliquis (Apixaban), and Effient (Prasugrel). You MUST call the doctors who orders those medicines for instructions on altering the dosage before your colonoscopy. All other medications should be taken the day of the exam with a sip of water including ASPIRIN. Five (5) Days Before Your Colonoscopy Do NOT take medicines that stop diarrhea - such as Imodium, Kaopectate, or Pepto Bismol. Do NOT take fiber supplements - such as Metamucil, Citrucel, or Perdiem. Do NOT take products that contain iron - such as multi-vitamins (the label lists what is in the products). Do NOT take Vitamin E. Buy the prescription bowel preparation solution at your local pharmacy or drugstore pharmacy. 1 08/2019 Bowel Preparation Instructions for: Golytely, Nulytely, Trilyte or Colyte (polyethylene glycol 3350 and electrolytes) Three (3) Days Before Your Colonoscopy Do NOT eat high-fiber foods - such as popcorn, beans, seeds (flax, sunflower, quinoa), multigrain bread, nuts, salad/vegetables, or fresh and dried fruit. One (1) Day Before Your Colonoscopy Only drink clear liquids the ENTIRE DAY before your colonoscopy. Do NOT eat any solid foods. Drink at least 8 ounces of clear liquids every hour after waking up. The clear liquids you can drink include: Clear Liquid (NO RED LIQUIDS) DO NOT DRINK Gatorade, Pedialyte or Powerade Clear broth or bouillon Coffee or tea (no milk or non-dairy creamer) Carbonated and non-carbonated soft drinks Manish-Aid or other fruit flavored drinks Strained fruit juices (no pulp) Jell-O, popsicles, hard candy Water Alcohol Milk or non-dairy creamers Noodles or vegetables in soup Juice with pulp Liquid you cannot see through Do not use tobacco/vaping products The bowel preparation solution will be consumed in two parts. Mix the solution the evening before your colonoscopy and refrigerate before drinking. You may add the flavor pack that came with the bowel preparation. Do NOT add ice, sugar or any other flavorings to the solution. Part 1 At 6:00 PM - Evening before your colonoscopy Drink an 8-oz glass of bowel preparation every 10 minutes until clear You may continue to drink clear liquids until midnight. 2 08/2019 Bowel Preparation Instructions for: Miralax-Gatorade Preparations IF YOU DO NOT FOLLOW THESE DIRECTIONS, YOUR COLONOSCOPY WILL BE CANCELLED. [place] Instructions: Your bowel must be empty so that your doctor can clearly view your colon. Follow all of the instructions in this handout EXACTLY as they are written. Do NOT eat any solid food the ENTIRE day before your colonoscopy. Buy your bowel preparation at least 5 days before your colonoscopy. Four (4) Dulcolax laxative tablets containing 5mg of bisacodyl each (NOT Dulcolax stool softener) One (1) 8.3oz. bottle Miralax (238 grams) or generic equivalent 2 x 32oz. Bottles of Gatorade (NOT RED) Diabetic Patients: Use G2 (Gatorade 2) TRANSPORTATION on the Day of Your Exam A responsible adult MUST be present with you at Check In prior to your colonoscopy and REMAIN in the endoscopy area until you are discharged. You are NOT ALLOWED to drive, take a taxi or bus, or leave the Endoscopy Center ALONE. If you do not have a responsible sweeper driver (family member or friend) with you to take you home, your exam cannot be done with sedation and will be cancelled. Please bring a list of all of your current medications, including any [id number] medications with you. Medications If you take insulin, diabetic medications or blood thinners such as Coumadin (warfarin), Plavix (clopidogrel), Ticlid (ticlopidine hydrochloride), Agrylin (anagrelide), Xarelto (Rivaroxaban), Pradaxa (Dabigatran), Eliquis (Apixaban), and Effient (Prasugrel). You MUST call the doctors who orders those medicines for instructions on altering the dosage before your colonoscopy. All other medications should be taken the day of the exam with a sip of water including ASPIRIN. Five (5) Days Before Your Colonoscopy Do NOT take medicines that stop diarrhea - such as Imodium, Kaopectate, or Pepto Bismol. Do NOT take fiber supplements - such as Metamucil, Citrucel, or Perdiem. Do NOT take products that contain iron - such as multi-vitamins (the label lists what is in the products). Three (3) Days Before Your Colonoscopy Do NOT eat high-fiber foods - such as popcorn, beans, seeds (flax, sunflower, quinoa), multigrain bread, nuts, salad/vegetables, or fresh and dried fruit. 1 Bowel Preparation Instructions for: Miralax-Gatorade Preparations One (1) Day Before Your Colonoscopy Only drink clear liquids the ENTIRE DAY before your colonoscopy. Do NOT eat any solid foods. Drink at least 8 ounces of clear liquids every hour after waking up. The clear liquids you can drink include: Clear Liquid (NO RED LIQUIDS) DO NOT DRINK Gatorade, Pedialyte or Powerade Clear broth or bouillon Coffee or tea (no milk or non-dairy creamer) Carbonated and non-carbonated soft drinks Manish-Aid or other fruit flavored drinks Strained fruit juices (no pulp) Jell-O, popsicles, hard candy Water Alcohol Milk or non-dairy creamers Noodles or vegetables in soup Juice with pulp Liquid you cannot see through Do not use tobacco/vaping products Mix 1/2 of Miralax bottle (119 grams) in each 32 ounces of Gatorade bottle until dissolved. Keep cool in the refrigerator. DO NOT ADD ICE. The bowel preparation solution will be consumed in two parts. Part 1 5:00 PM - Evening before your colonoscopy Take 4 Dulcolax tablets. 6 PM - Evening before your colonoscopy Drink 32 oz. of the mixed solution. Drink an 8 oz. glass of bowel preparation every 15 minutes for a total of 4 glasses. Fifteen (15) minutes later, drink an 8 oz. glass of of clear liquids every 15 minutes for a total of 2 glasses. You may continue to drink clear liquids till midnight. Part 2 On the day of your colonoscopy you may drink clear liquids up to (three) 3 hours prior to procedure. 4 1/2 hours before your colonoscopy Take another 32 oz. bottle of mixed solution. Drink an 8 oz. glass of bowel prep every 15 minutes for a total of 4 glasses. Fifteen (15) minutes later, drink an 8 oz. glass of clear liquids every 15 minutes for a total of 2 glasses. You may continue to drink clear liquids up to (three) 3 hours before your exam. 2 08/2019 documented in this encounter [facility] 11-24-2023 Nurse Note REVIEW OF SYSTEMS: General: The patient denies fatigue, denies weight loss, denies weight gain, denies feeling hot, and denies feelings of cold. Eyes: The patient denies glaucoma, denies eye injury/surgery, wears glasses or contacts. Ear/Nose/Throat: The patient NOTES allergies, denies hayfever, denies ear infections, and denies bloody noses. Cardiovascular: The patient denies chest pain, denies heart disease, NOTES high blood pressure,denies cardiac stent, denies prior heart attack, denies irregular heart beat, NOTES high cholesterol, denies poor circulation, denies heart failure, other cardiac issues, denies claudication, denies cold feet, denies peripheral arterial stent. Respiratory: The patient denies tuberculosis, denies pneumonia, denies frequent cough, denies pulmonary embolism, NOTES shortness of breath, and NOTES COPD . Gastrointestinal: The patient denies difficulty swallowing, NOTES acid reflux, denies ulcers, denies vomiting, denies jaundice/hepatitis, denies gallbladder problems, denies black or tarry stools, denies hemorrhoids, denies bleeding from rectum, denies diverticulitis, denies constipation, denies diarrhea, denies loss of stool control, and denies hernias. Kidney/Bladder: The patient denies kidney stones, denies urine infections, and denies bloody urine. Skin: The patient denies a history of skin cancer, denies bleeding/changing moles, and denies a history of skin rash. Neurologic: The patient denies a history of epilepsy/convulsions, denies headaches, denies head/spinal injuries, and denies stroke/TIA. Psychiatric: The patient denies psychiatric medications, NOTES depression, and denies voices, denies substance abuse. Endocrine: The patient denies thyroid disorders, denies diabetes, and denies hormonal problems. Hematologic: The patient denies a history of bruising, denies bleeding, and NOTES anemia, denies blood clots. Infections: The patient denies a history of measles and mumps, denies rheumatic fever, and denies sexually transmitted diseases. Musculoskeletal: The patient denies back pain/injury, NOTES back problems, denies sciatica, denies knee/foot trouble, denies arthritis, or denies gout. When was patient's last Mammogram screening? 06/10/2023 Last Colonoscopy: 10/22/2012 Keeley Fountain RN documented in this encounter [facility] 11-24-2023 History of Present illness Narrative HISTORY AND PHYSICAL Molly Hidalgo 1960 REFERRING PHYSICIAN: Negrito Wilburn,* CHIEF COMPLAINT: Personal history of colon polyps HPI: The patient is a 63 year old female referred for endoscopy. Molly notes no current colon complaints The patient notes no upper GI complaints Molly has undergone prior endoscopy. She underwent colonoscopy by Dr. Rk Galeas in 2012 which returned as a tubulovillous adenoma with high-grade dysplasia in the descending colon. Polyp was noted to be 25 mm in size. She then had a 7 mm polyp removed in 2014 which returned as a hyperplastic polyp.. She then had follow-up colonoscopy in 2018 which was unremarkable. It was recommended she have a 5-year follow-up colonoscopy. The patient is being seen by me today at the request of Dr. Negrito Wilburn MD for my opinion and advice regarding follow-up for history of a tubulovillous adenoma. PAST MEDICAL HISTORY Diagnosis Date Abnormal glandular Papanicolaou smear of cervix Abn. Pap smear (cervix) Bulimia Chronic lower back pain Dr. Hall Colon polyps hyperplastic polyp 2014 COPD (chronic obstructive pulmonary disease) (HCC) 02/16/2023 Depression 1980s Diaphragmatic hernia without mention of obstruction or gangrene Esophageal reflux 06/09/2005 Family history of coronary artery disease Fatty liver 10/19/2023 Fibromyalgia History of alcohol dependence (HCC) History of drug abuse (HCC) marijuana, cocaine, acid, methamphetamines, speed. Sober since age 20s Hypertension Iron deficiency anemia Lumbar stenosis with neurogenic claudication Mononucleosis Nephrolithiasis PAD (peripheral artery disease) (HCC) Prediabetes Pure hypercholesterolemia 06/09/2005 Tobacco use PAST SURGICAL HISTORY Procedure Laterality Date COLONOSCOPY FLX DX W/COLLJ SPEC WHEN PFRMD 07/23/13 Colonoscopy COLONOSCOPY FLX DX W/COLLJ SPEC WHEN PFRMD 01/14/2015 Colonoscopy, repeat in 3 years COLONOSCOPY FLX DX W/COLLJ SPEC WHEN PFRMD 10/22/2018 Colonoscopy EGD TRANSORAL BIOPSY SINGLE/MULTIPLE 07/08/09 ERCP DESTRUCTION/LITHOTRIPSY CALCULI ANY METHOD 2012 ESOPHAGOGASTRODUODENOSCOPY TRANSORAL DIAGNOSTIC 07/23/13 EGD PAST SURGICAL HISTORY OF 02/2018 L3-4 decompression, TLIF and fusion STEREOTACTIC CORE BIOPSY 02/26/07 left breast TOTAL ABDOMINAL HYSTERECT W/WO RMVL TUBE OVARY 1980s Hysterectomy, SEKOU. precancerous cells Current Outpatient Medications Medication Sig cephALEXin (KEFLEX) 500 mg capsule Take 1 capsule by mouth two times a day for 7 days. oxybutynin XL (DITROPAN XL) 10 mg 24 hr tablet Take 1 tablet by mouth once daily. budesonide-formoterol (SYMBICORT) 80-4.5 mcg/actuation inhaler Inhale 2 Puffs as instructed two times a day. metFORMIN (GLUCOPHAGE) 500 mg tablet Take 1 tablet by mouth two times a day with meals. . DULoxetine (CYMBALTA) 60 mg capsule Take 1 capsule by mouth once daily. patient assistance buPROPion XL (WELLBUTRIN XL) 300 mg 24 hr tablet Take 1 tablet by mouth once daily. rosuvastatin (CRESTOR) 20 mg tablet Take 1 tablet by mouth daily at bedtime. albuterol HFA (VENTOLIN HFA) 90 mcg/actuation inhaler Inhale 2 Puffs as instructed every 4 hours as needed for wheezing/shortness of breath. lisinopril (ZESTRIL) 10 mg tablet Take 0.5 tablets by mouth once daily. omeprazole (PRILOSEC) 40 mg capsule Take 1 capsule by mouth once daily. nitroglycerin sublingual (NITROSTAT) 0.4 mg SL tablet Dissolve 1 tablet under the tongue every 5 minutes as needed for chest pain. pregabalin (LYRICA) 100 mg capsule Take 1 capsule by mouth twice daily for 90 days. traMADol (ULTRAM) 50 mg tablet Take 50 mg by mouth twice daily. Cholecalciferol, Vitamin D3, 2,000 unit cap Take 1 tablet by mouth once daily. No current facility-administered medications for this visit. ALLERGIES: Iodine [Contrast Dye] and Lipitor [Atorvastatin Calcium] PERSONAL HISTORY: Social History Tobacco Use Smoking status: Every Day Years: 50 Types: Cigarettes Last attempt to quit: 12/08/2017 Years since quittin.9 Smokeless tobacco: Never Tobacco comments: Reports 2.5 cigarettes daily as of [id number] Substance Use Topics Alcohol use: No Comment: sober since 01/2019 Drug use: No Comment: none in many yrs FAMILY HISTORY: FAMILY HISTORY Problem Relation Age of Onset Heart Father from heart attack, age 50 Hyperlipidemia Father Hypertension Father Hypertension Mother Blood Disease Mother ITP Thyroid Sister Cancer Maternal Grandmother colon Heart Paternal Grandfather Heart Paternal Uncle Cancer Maternal Uncle brain REVIEW OF SYMPTOMS: The review of systems data was entered by the nurse and reviewed by ks Nursing Notes: Keeley Fountain RN 11/24/2023 1:04 PM Addendum REVIEW OF SYSTEMS: General: The patient denies fatigue, denies weight loss, denies weight gain, denies feeling hot, and denies feelings of cold. Eyes: The patient denies glaucoma, denies eye injury/surgery, wears glasses or contacts. Ear/Nose/Throat: The patient NOTES allergies, denies hayfever, denies ear infections, and denies bloody noses. Cardiovascular: The patient denies chest pain, denies heart disease, NOTES high blood pressure,denies cardiac stent, denies prior heart attack, denies irregular heart beat, NOTES high cholesterol, denies poor circulation, denies heart failure, other cardiac issues, denies claudication, denies cold feet, denies peripheral arterial stent. Respiratory: The patient denies tuberculosis, denies pneumonia, denies frequent cough, denies pulmonary embolism, NOTES shortness of breath, and NOTES COPD . Gastrointestinal: The patient denies difficulty swallowing, NOTES acid reflux, denies ulcers, denies vomiting, denies jaundice/hepatitis, denies gallbladder problems, denies black or tarry stools, denies hemorrhoids, denies bleeding from rectum, denies diverticulitis, denies constipation, denies diarrhea, denies loss of stool control, and denies hernias. Kidney/Bladder: The patient denies kidney stones, denies urine infections, and denies bloody urine. Skin: The patient denies a history of skin cancer, denies bleeding/changing moles, and denies a history of skin rash. Neurologic: The patient denies a history of epilepsy/convulsions, denies headaches, denies head/spinal injuries, and denies stroke/TIA. Psychiatric: The patient denies psychiatric medications, NOTES depression, and denies voices, denies substance abuse. Endocrine: The patient denies thyroid disorders, denies diabetes, and denies hormonal problems. Hematologic: The patient denies a history of bruising, denies bleeding, and NOTES anemia, denies blood clots. Infections: The patient denies a history of measles and mumps, denies rheumatic fever, and denies sexually transmitted diseases. Musculoskeletal: The patient denies back pain/injury, NOTES back problems, denies sciatica, denies knee/foot trouble, denies arthritis, or denies gout. When was patient's last Mammogram screening? 06/10/2023 Last Colonoscopy: 10/22/2012 Keeley Fountain RN PHYSICAL EXAMINATION: General: The patient is 63 year old female, well nourished, well hydrated in no acute distress. The patient is oriented to time, place, and person. VITALS: Last menstrual period 08/02/2005. There is no height or weight on file to calculate BMI. HEENT: Normal cephalic, ataumatic, pupils are equally round, sclera are anicteric, mucous membranes are moist, oropharynx is clear. Neck has no masses, asymmetry or lymphadenopathy. Thyroid is unremarkable. Respiratory: Clear to auscultation and percussion. Normal respiratory excursion and pattern. Cardiac: Examination is regular rate and rhythm. Abdominal exam: Soft, nontender, with no palpable masses. No hepatosplenomegaly. No palpable hernias. Rectal exam: exam deferred Extremities: no clubbing, cyanosis or edema. No adenopathy. Other: LABORATORY VALUES: As Noted RADIOLOGIC STUDIES: As Noted Assessment IMPRESSION: History of tubulovillous adenoma PLAN: I plan to perform lower endoscopy. We discussed the risks and benefits of the planned endoscopy. I have informed the patient that complications can occur including failure to complete the endoscopy and perforation. The patient had the opportunity to ask questions concerning the planned endoscopy. My staff has also explained the procedure to the patient in understandable terms and has given the patient printed material concerning the procedure. The patient freely consents to surgery. I plan to use golytely bowel preparation for endoscopy The patient left she had talked to Alisson Chaparro our clinical review nurse and noted that she was supposed to follow-up after a abnormal mammogram demonstrating microcalcification. The mammogram in 2021 the recommended biopsy for was felt to be pleomorphic microcalcifications. She was not able to get the procedure done. She then had a follow-up mammogram which was read as BI-RADS category #1. My opinion was that the site was stable and I agree she does not require biopsy at this time. She should have her follow-up annual screening. Attempted to call the patient but was unable to get an answer on her phone. Diagnoses: (D36.9) Tubulovillous adenoma (primary encounter diagnosis) (Z12.11) Screening for colon cancer My findings have been communicated to Dr. Negrito Wilburn MD via shared medical record. This note will be forwarded to Dr. Negrito Wilburn MD. Return to Clinic: The patient is instructed to follow-up with me after the testing has been completed. Alfred Wills MD documented in this encounter [facility] 11-19-2023 Miscellaneous Notes I called patient back as she had called back and had more questions. 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 All questions answered. Patient voiced understanding of plan. Left VM instructing patient to return call to receive results. Judi Pickard MA Your urine culture did show an infection. Keflex was sent to your pharmacy. documented in this encounter [facility] 11-19-2023 Miscellaneous Notes Patient calling back to speak with the provider from the [facility] . Patient denies any new or worsening symptoms of which a provider is not aware:Yes. Patient returning the call from the [facility] care, advised the message in My Chart from 11/19/2023 at 8:04 pm. Patient states she still has questions and requesting a call back. documented in this encounter [facility] 11-17-2023 History of Present illness Narrative Patient presents with: UTI: Urinary frequency x 5days HPI: Symptoms for 5 days. Dysuria: No, pressure Frequency: Yes Hematuria: No Nausea: No nausea, vomiting, or diarrhea Fever or chills: No Back pain: unchanged chronic Abdominal pain: No Prior UTI: She thinks so; all cultures in EMR show no sufficient bacterial growth. Off ditropan for 4-5 days. Has an appointment with urology. Personal history of kidney stones: Yes MEDICATIONS: Current Outpatient Medications Medication Sig budesonide-formoterol (SYMBICORT) 80-4.5 mcg/actuation inhaler Inhale 2 Puffs as instructed two times a day. oxybutynin XL (DITROPAN XL) 5 mg 24 hr tablet Take 1 tablet by mouth once daily. DULoxetine (CYMBALTA) 60 mg capsule Take 1 capsule by mouth once daily. patient assistance buPROPion XL (WELLBUTRIN XL) 300 mg 24 hr tablet Take 1 tablet by mouth once daily. rosuvastatin (CRESTOR) 20 mg tablet Take 1 tablet by mouth daily at bedtime. albuterol HFA (VENTOLIN HFA) 90 mcg/actuation inhaler Inhale 2 Puffs as instructed every 4 hours as needed for wheezing/shortness of breath. lisinopril (ZESTRIL) 10 mg tablet Take 0.5 tablets by mouth once daily. omeprazole (PRILOSEC) 40 mg capsule Take 1 capsule by mouth once daily. nitroglycerin sublingual (NITROSTAT) 0.4 mg SL tablet Dissolve 1 tablet under the tongue every 5 minutes as needed for chest pain. pregabalin (LYRICA) 100 mg capsule Take 1 capsule by mouth twice daily for 90 days. traMADol (ULTRAM) 50 mg tablet Take 50 mg by mouth twice daily. Cholecalciferol, Vitamin D3, 2,000 unit cap Take 1 tablet by mouth once daily. metFORMIN (GLUCOPHAGE) 500 mg tablet Take 1 tablet by mouth two times a day with meals. . No current facility-administered medications for this visit. ALLERGIES: ALLERGIES Allergen Reactions Iodine [Contrast Dy* Swelling PT HAD A REACTION OF SWELLING IN THROAT,TROUBLE BREATHING 24 HRS AFTER INJECTION OF IV DYE FOR A CT UROGRAM. KK Lipitor [Atorvastat* Other: See Comments Skin turned yellow VITALS: BP 108/72 Pulse 84 Temp 36.7 C (98 F) Resp 16 Wt 63 kg (138 lb 12.8 oz) LMP 08/02/2005 SpO2 96% BMI 27.11 kg/m PHYSICAL EXAM: GEN: NAD HEENT: EOMI, conjunctiva clear, HEART: regular rate and rhythm, no murmurs LUNGS: clear to auscultation, no wheezes or crackles, no increased WOB ABDOMEN: Soft, nondistended, no masses, no suprapubic tenderness BACK: No CVA tenderness ASSESSMENT/PLAN: 1. Urinary frequency - ICD9: 788.41, ICD10: R35.0 (primary diagnosis) - UA DIP, URINE (POC) - trace excite esterase only. Low suspicion for urinary tract infection. - URINE CULTURE Symptom duration correlates with cessation of overactive bladder medication. Sent 30-day refill of- OXYBUTYNIN CHLORIDE ER 10 MG TABLET,EXTENDED RELEASE 24 HR 2. Stress incontinence - ICD9: [id number], ICD10: N39.3 Reports 5 mg oxybutynin was not effective but taking 2 pills were. - OXYBUTYNIN CHLORIDE ER 10 MG TABLET,EXTENDED RELEASE 24 HR Keep follow-up as scheduled with urology. FYI to primary care. Marc Vines MD documented in this encounter [facility] 11-15-2023 Miscellaneous Notes Pt called requesting referral for Urologist Dr. Josee Maynard and supporting information be faxed to: [phone]. Done. Génesis White LPN documented in this encounter [facility] 11-10-2023 Miscellaneous Notes Patient calls and states that Dr. Maynard is in patient's insurance network. Office notes, demographics, and referral faxed to Dr. Maynard's office. Libertad Coleman, RN Pt notified and voiced understanding. Deisy Duron Ma Can you please call the patient and let her know that she tested negative for COVID, flu, and RSV. I would like her to continue supportive care at home. Stay well-hydrated. She may try Mucinex as needed for chest congestion. Continue with the Symbicort as prescribed. Follow-up with urology as discussed during office visit. Please let me know if she has any questions. Thank you. Helen Taylor APRN.KATHLEEN documented in this encounter [facility] 11-09-2023 Instructions Helen Taylor APRN.CNP - 11/09/2023 11:08 AM EST Strep Negative Covid/Flu/RSV pending Start Symbicort, twice daily, rinse mouth afterwards Continue with albuterol as needed May use over the counter cough and cold medications as needed. Mucinex works well for chest congestion/Mucus Stay well hydrated. Consult has been urology. May check with Dr. Maynard about insurance coverage. Follow up as needed. documented in this encounter [facility] 11-09-2023 History of Present illness Narrative This is a 63 year old female who presents today with: Patient presents with: Acute Visit: cough HISTORY OF PRESENT ILLNESS: Molly Hidalgo is a 63 year old female. Patient presents with: Acute Visit: cough Patient of Dr. Wilburn here in the office for cough and sore throat. Started about 6 days ago. Cough is productive at times, usually clear to yellow mucus. Increased SOB. Has not tried any otc medications at this time. Sore throat from the coughing. No fever or chills. Smoking 2 cigarettes per day. History of COPD. Using albuterol as needed. Start on ditropan XL 5 mg daily on 10/27/2023. Refers that medication has not been helpful for her incontinence. Has been doing at home exercises for pelvic floor. PAST MEDICAL HISTORY: PAST MEDICAL HISTORY Diagnosis Date Abnormal glandular Papanicolaou smear of cervix Abn. Pap smear (cervix) Bulimia Chronic lower back pain Dr. Hall Colon polyps hyperplastic polyp 2014 COPD (chronic obstructive pulmonary disease) (HCC) 02/16/2023 Depression Diaphragmatic hernia without mention of obstruction or gangrene Esophageal reflux 06/09/2005 Family history of coronary artery disease Fatty liver 10/19/2023 Fibromyalgia History of alcohol dependence ([facility]) History of drug abuse ([facility]) marijuana, cocaine, acid, methamphetamines, speed. Sober since age 20s Hypertension Iron deficiency anemia Lumbar stenosis with neurogenic claudication Mononucleosis Nephrolithiasis PAD (peripheral artery disease) ([facility]) Prediabetes Pure hypercholesterolemia 06/09/2005 Tobacco use PAST SURGICAL HISTORY Procedure Laterality Date COLONOSCOPY FLX DX W/COLLJ SPEC WHEN PFRMD 07/23/13 Colonoscopy COLONOSCOPY FLX DX W/COLLJ SPEC WHEN PFRMD 01/14/2015 Colonoscopy, repeat in 3 years COLONOSCOPY FLX DX W/COLLJ SPEC WHEN PFRMD 10/22/2018 Colonoscopy EGD TRANSORAL BIOPSY SINGLE/MULTIPLE 07/08/09 ERCP DESTRUCTION/LITHOTRIPSY CALCULI ANY METHOD 2012 ESOPHAGOGASTRODUODENOSCOPY TRANSORAL DIAGNOSTIC 07/23/13 EGD PAST SURGICAL HISTORY OF 02/2018 L3-4 decompression, TLIF and fusion STEREOTACTIC CORE BIOPSY 02/26/07 left breast TOTAL ABDOMINAL HYSTERECT W/WO RMVL TUBE OVARY Hysterectomy, SEKOU. precancerous cells ALLERGIES Iodine [Contrast Dye] and Lipitor [Atorvastatin Calcium] MEDICATIONS Current Outpatient Medications Medication Sig oxybutynin XL (DITROPAN XL) 5 mg 24 hr tablet Take 1 tablet by mouth once daily. metFORMIN (GLUCOPHAGE) 500 mg tablet Take 1 tablet by mouth two times a day with meals. . DULoxetine (CYMBALTA) 60 mg capsule Take 1 capsule by mouth once daily. patient assistance buPROPion XL (WELLBUTRIN XL) 300 mg 24 hr tablet Take 1 tablet by mouth once daily. rosuvastatin (CRESTOR) 20 mg tablet Take 1 tablet by mouth daily at bedtime. albuterol HFA (VENTOLIN HFA) 90 mcg/actuation inhaler Inhale 2 Puffs as instructed every 4 hours as needed for wheezing/shortness of breath. lisinopril (ZESTRIL) 10 mg tablet Take 0.5 tablets by mouth once daily. omeprazole (PRILOSEC) 40 mg capsule Take 1 capsule by mouth once daily. nitroglycerin sublingual (NITROSTAT) 0.4 mg SL tablet Dissolve 1 tablet under the tongue every 5 minutes as needed for chest pain. pregabalin (LYRICA) 100 mg capsule Take 1 capsule by mouth twice daily for 90 days. traMADol (ULTRAM) 50 mg tablet Take 50 mg by mouth twice daily. Cholecalciferol, Vitamin D3, 2,000 unit cap Take 1 tablet by mouth once daily. No current facility-administered medications for this visit. FAMILY HISTORY Problem Relation Age of Onset Heart Father from heart attack, age 50 Hyperlipidemia Father Hypertension Father Hypertension Mother Blood Disease Mother ITP Thyroid Sister Cancer Maternal Grandmother colon Heart Paternal Grandfather Heart Paternal Uncle Cancer Maternal Uncle brain Social History Tobacco Use Smoking status: Every Day Packs/day: 0.50 Years: 50.00 Additional pack years: 0.00 Total pack years: 25.00 Types: Cigarettes Last attempt to quit: 12/08/2017 Years since quittin.9 Smokeless tobacco: Never Tobacco comments: Reports 2.5 cigarettes daily as of 09/19/23 Substance Use Topics Alcohol use: No Comment: sober since 01/2019 Drug use: No Comment: none in many yrs REVIEW OF SYSTEMS GENERAL: No weight loss, malaise or fevers/chills HEENT: + Sore Throat NECK: Negative for lumps, goiter, pain and significant neck swelling RESPIRATORY: + Cough CARDIOVASCULAR: Negative for chest pain, leg swelling, orthopnea, or palpitations GI: No nausea, vomiting, or diarrhea/constipation. No hematochezia/melena. No heartburn or reflux symptoms. : No history of dysuria, frequency or incontinence MUSCULOSKELETAL: Negative for joint pain or swelling. SKIN: Negative for lesions, rash, and itching ENDOCRINE: Negative for cold or heat intolerance, polyuria, polydipsia and goiter NEURO: No history of headaches, syncope, paralysis, seizures or tremors MOOD: Negative for depression, anxiety, or suicidal ideation. EXAM: BP 130/84 Pulse 80 Resp 20 Wt 61.2 kg (135 lb) LMP 08/02/2005 SpO2 94% BMI 26.37 kg/m PHYSICAL EXAM: General Appearance: Well appearing, alert, in no acute distress, well-hydrated, well nourished. Skin: Skin color, texture, turgor normal, no suspicious rashes or lesions. Head: Normocephalic, no masses, lesions, tenderness or abnormalities. Eyes: Anicteric sclera. Pupils are equally round and reactive to light. Extraocular movements are intact. Ears: External ears normal, canals clear. TMs pearly sarmiento. Nose/Sinuses: Nares normal, septum midline, mucosa normal, no drainage or sinus tenderness. Oropharynx: Positive findings: moderate oropharyngeal erythema. Neck: Supple, no adenopathy; thyroid symmetric, normal size, no bruits. Lungs: Lungs clear to auscultation. No wheezing, rhonchi, rales. Cough. Heart: RRR without murmur, gallop, or rubs. No ectopy. Extremities: No deformities, edema, skin discoloration, clubbing or cyanosis. Good capillary refill. Peripheral Pulses: Normal, Capillary refill <2secs, strong peripheral pulses, Pulses palpable. Neurologic: Gait normal. Sensation grossly intact. ASSESSMENT/PLAN: 1. Sore throat - ICD9: 462, ICD10: J02.9 (primary diagnosis) - Suspect viral - Group A strep molecular testing negative - Discussed supportive care treatment with fluids, rest and analgesia. - STREP A MOLECULAR (POC) - COVID & INFLUENZA A/B & RSV NAAT, ROUTINE 2. Chronic obstructive pulmonary disease, unspecified COPD type (HCC) - ICD9: 496, ICD10: J44.9 - Start Symbicort - Continue with albuterol as needed. - Smoking cessation encouraged. - BUDESONIDE-FORMOTEROL HFA 80 MCG-4.5 MCG/ACTUATION AEROSOL INHALER 3. Stress incontinence - ICD9: [id number], ICD10: N39.3 - Recommend consult with urology. - CONSULT TO UROLOGY Follow-up pending test results or sooner as needed. Discussed treatment plan and patient voices understanding. Patient's questions answered appropriately. Medications and potential side effects were discussed and patient voices understanding. Helen Taylor APRN.COLD ROLLING SUPERVISOR This note was partially generated using [employer] voice recognition system. Note was reviewed for accuracy. There may be minor misspellings or grammar miscues with [employer] voice recognition. documented in this encounter [facility] 11-09-2023 Miscellaneous Notes Please see note below as well regarding continued urinary incontinence as well. Protocol recommends see provider within 4 hours. Appt given with Helen Taylor for 1100 today. Reason for Disposition [1] MILD difficulty breathing (e.g., minimal/no SOB at rest, SOB with walking, pulse <100) AND [2] still present when not coughing Answer Assessment - Initial Assessment Questions 1. ONSET: 5-6 days ago 2. SEVERITY: not getting worse. Frequent cough for several hours then stop for a few hours. Cough is waking her up at night. Voice sounds hoarse. 3. SPUTUM: clear occasional yellow 4. HEMOPTYSIS: denies 5. DIFFICULTY BREATHING: moderate-sounds a bit wheezy on the phone when talking - MILD: No SOB at rest, mild SOB with walking, speaks normally in sentences, can lie down, no retractions, pulse < 100. - MODERATE: SOB at rest, SOB with minimal exertion and prefers to sit, cannot lie down flat, speaks in phrases, mild retractions, audible wheezing, pulse 100-120. - SEVERE: Very SOB at rest, speaks in single words, struggling to breathe, sitting hunched forward, retractions, pulse > 120 6. FEVER: denies fever, chills or body aches 7. CARDIAC HISTORY: denies 8. LUNG HISTORY: COPD and calcifications of pulmonary artery 9. PE RISK FACTORS: denies any history of blood clots 10. OTHER SYMPTOMS: slight wheezing off and on. Denies runny nose, headache, or chest pain 11. : n/a 12. TRAVEL: denies Protocols used: Cough - Acute [id number] Patient calling she started taking the Oxybutynin after her appt on 10/27, patient said medication is not helping the urinary incontinence at all. Patient is asking if the dose needs increased or changed to something else? Patient uses [facility] for her pharmacy. Please advise documented in this encounter [facility] 10-30-2023 Miscellaneous Notes Pt notified of results via [employer]. Deisy Duron Ma Can you please call the patient and let her know that I reviewed her urine results. Culture came back negative for any bacterial growth. No UTI noted. I would like her to stay well-hydrated. Be mindful of salt in the diet. Continue with plan to get labs in 1 month with follow-up. Please let me know if she has any questions. Helen Taylor APRN.KATHLEEN documented in this encounter [facility] 10-27-2023 Instructions Helen Taylor APRN.CNP - 10/27/2023 1:06 PM EST Urine testing pending Start Ditropan XL 5 mg daily. Work on setting a bathroom schedule Try to avoid caffeine, stay well hydrate May try pelvic floor exercises. May consider follow up with RESOLUTION SPECIALIST if needed. Eat a low sodium diet Get repeat lab in 1 month Follow up pending test results. documented in this encounter [facility] 10-27-2023 History of Present illness Narrative This is a 62 year old female who presents today with: Patient presents with: Acute Visit: urinary incont. HISTORY OF PRESENT ILLNESS: Molly Hidalgo is a 62 year old female. Patient presents with: Acute Visit: urinary incont. Patient of Dr. Wilburn here in the office for urinary incontinence. Started about 6 weeks ago. Noticed urine leaking with cough, sneezing, or certain movement. No Dysuria or Hematuria. No abnormal vaginal discharge. Feels like symptoms are getting worse. Having to wear pads daily and at night. Refers that she thinks its from gaining weight. Had complete Hysterectomy about 30 years ago. Decreased kidney function on lab results in September. Patient was not aware of PCP message and instructions. Had kidney US which was relatively normal. PCP wanted the patient to hold her metformin at this time and get urinalysis completed. PAST MEDICAL HISTORY: PAST MEDICAL HISTORY Diagnosis Date Abnormal glandular Papanicolaou smear of cervix Abn. Pap smear (cervix) Bulimia Chronic lower back pain Dr. Hall Colon polyps hyperplastic polyp 2014 COPD (chronic obstructive pulmonary disease) (HCC) 02/16/2023 Depression Diaphragmatic hernia without mention of obstruction or gangrene Esophageal reflux 06/09/2005 Family history of coronary artery disease Fatty liver 10/19/2023 Fibromyalgia History of alcohol dependence ([facility]) History of drug abuse ([facility]) marijuana, cocaine, acid, methamphetamines, speed. Sober since age 20s Hypertension Iron deficiency anemia Lumbar stenosis with neurogenic claudication Mononucleosis Nephrolithiasis PAD (peripheral artery disease) ([facility]) Prediabetes Pure hypercholesterolemia 06/09/2005 Tobacco use PAST SURGICAL HISTORY Procedure Laterality Date COLONOSCOPY FLX DX W/COLLJ SPEC WHEN PFRMD 07/23/13 Colonoscopy COLONOSCOPY FLX DX W/COLLJ SPEC WHEN PFRMD 01/14/2015 Colonoscopy, repeat in 3 years COLONOSCOPY FLX DX W/COLLJ SPEC WHEN PFRMD 10/22/2018 Colonoscopy EGD TRANSORAL BIOPSY SINGLE/MULTIPLE 07/08/09 ERCP DESTRUCTION/LITHOTRIPSY CALCULI ANY METHOD 2012 ESOPHAGOGASTRODUODENOSCOPY TRANSORAL DIAGNOSTIC 07/23/13 EGD PAST SURGICAL HISTORY OF 02/2018 L3-4 decompression, TLIF and fusion STEREOTACTIC CORE BIOPSY 02/26/07 left breast TOTAL ABDOMINAL HYSTERECT W/WO RMVL TUBE OVARY Hysterectomy, SEKOU. precancerous cells ALLERGIES Iodine [Contrast Dye] and Lipitor [Atorvastatin Calcium] MEDICATIONS Current Outpatient Medications Medication Sig metFORMIN (GLUCOPHAGE) 500 mg tablet Take 1 tablet by mouth two times a day with meals. . DULoxetine (CYMBALTA) 60 mg capsule Take 1 capsule by mouth once daily. patient assistance buPROPion XL (WELLBUTRIN XL) 300 mg 24 hr tablet Take 1 tablet by mouth once daily. rosuvastatin (CRESTOR) 20 mg tablet Take 1 tablet by mouth daily at bedtime. albuterol HFA (VENTOLIN HFA) 90 mcg/actuation inhaler Inhale 2 Puffs as instructed every 4 hours as needed for wheezing/shortness of breath. lisinopril (ZESTRIL) 10 mg tablet Take 0.5 tablets by mouth once daily. omeprazole (PRILOSEC) 40 mg capsule Take 1 capsule by mouth once daily. nitroglycerin sublingual (NITROSTAT) 0.4 mg SL tablet Dissolve 1 tablet under the tongue every 5 minutes as needed for chest pain. pregabalin (LYRICA) 100 mg capsule Take 1 capsule by mouth twice daily for 90 days. traMADol (ULTRAM) 50 mg tablet Take 50 mg by mouth twice daily. Cholecalciferol, Vitamin D3, 2,000 unit cap Take 1 tablet by mouth once daily. No current facility-administered medications for this visit. FAMILY HISTORY Problem Relation Age of Onset Heart Father from heart attack, age 50 Hyperlipidemia Father Hypertension Father Hypertension Mother Blood Disease Mother ITP Thyroid Sister Cancer Maternal Grandmother colon Heart Paternal Grandfather Heart Paternal Uncle Cancer Maternal Uncle brain Social History Tobacco Use Smoking status: Every Day Packs/day: 0.50 Years: 50.00 Additional pack years: 0.00 Total pack years: 25.00 Types: Cigarettes Last attempt to quit: 12/08/2017 Years since quittin.8 Smokeless tobacco: Never Tobacco comments: Reports 2.5 cigarettes daily as of 09/19/23 Substance Use Topics Alcohol use: No Comment: sober since 01/2019 Drug use: No Comment: none in many yrs REVIEW OF SYSTEMS GENERAL: No weight loss, malaise or fevers/chills HEENT: Negative for frequent or significant headaches, No changes in hearing or vision. NECK: Negative for lumps, goiter, pain and significant neck swelling RESPIRATORY: Negative for cough, hemoptysis, wheezing, dyspnea or shortness of breath CARDIOVASCULAR: Negative for chest pain, leg swelling, orthopnea, or palpitations GI: No nausea, vomiting, or diarrhea/constipation. No hematochezia/melena. No heartburn or reflux symptoms. : + Incontinence MUSCULOSKELETAL: Negative for joint pain or swelling. SKIN: Negative for lesions, rash, and itching ENDOCRINE: Negative for cold or heat intolerance, polyuria, polydipsia and goiter NEURO: No history of headaches, syncope, paralysis, seizures or tremors MOOD: Negative for depression, anxiety, or suicidal ideation. EXAM: BP 116/78 Pulse 88 Resp 16 Wt 60.3 kg (133 lb) LMP 08/02/2005 SpO2 96% BMI 25.97 kg/m PHYSICAL EXAM: General Appearance: Well appearing, alert, in no acute distress, well-hydrated, well nourished. Skin: Skin color, texture, turgor normal, no suspicious rashes or lesions. Head: Normocephalic, no masses, lesions, tenderness or abnormalities. Eyes: Anicteric sclera. Extraocular movements are intact. Lungs: Lungs clear to auscultation. No wheezing, rhonchi, rales. Heart: RRR without murmur, gallop, or rubs. No ectopy. Abdomen: Normal abdominal exam, Abdomen soft, non-tender. Bowel sounds normal. No masses, organomegaly, Negative CVA tenderness. Peripheral Pulses: Normal, Capillary refill <2secs, strong peripheral pulses, Pulses palpable. Neurologic: Gait normal. Reflexes normal and symmetric. Sensation grossly intact.. ASSESSMENT/PLAN: 1. Stress incontinence - ICD9: [id number], ICD10: N39.3 (primary diagnosis) - Urinalysis will be completed. - Instructed to set bathroom schedule, limit caffeine, stay well-hydrated. - May try pelvic floor exercises at home. Discussed possible pelvic floor therapy in the future if needed. - Start Ditropan XL 5 mg daily. - OXYBUTYNIN CHLORIDE ER 5 MG TABLET,EXTENDED RELEASE 24 HR - URINALYSIS, WITH MICROSCOPIC - URINE CULTURE 2. PROSPER (acute kidney injury) (HCC) - ICD9: 584.9, ICD10: N17.9 - Complete urinalysis - Hold metformin at this time - Eat a low-sodium diet - Get repeat lab in 1 month - COMP METABOLIC PANEL - URINALYSIS, WITH MICROSCOPIC - URINE CULTURE Follow-up in 6 weeks or sooner as needed. Discussed treatment plan and patient voices understanding. Patient's questions answered appropriately. Medications and potential side effects were discussed and patient voices understanding. Helen Taylor APRN.COLD ROLLING SUPERVISOR This note was partially generated using [employer] recognition system. Note was reviewed for accuracy. There may be minor misspellings or grammar miscues with [employer] voice recognition. documented in this encounter [facility] 10-27-2023 Miscellaneous Notes Patient telephoned and scheduled with Helen Willis CONTROL CLERK at 1pm. Trista Espinosa LPN Will need appointment to discuss concerns. Jessica Palencia APRN.CNP Mel is calling Jessica Palencia APRN.CNP today with concern regarding a bit of incontinence and would like to speak with Jessica regarding this. Please call at phone below which has been verified. Patient has been identified by name and birthdate. Duration of symptoms: ongoing Person calling: self Call patient at: on cell [phone] (home) [phone] (cell) Was an appointment scheduled: No Closing statement: Symptom Call: Thank you for calling [facility], your call is very important. A nurse will call in approximately 2-4 hours during business hours. If this is an emergency, please contact 911. Debi Caicedo documented in this encounter [facility] 10-19-2023 Miscellaneous Notes Patient notified of results and recommend cardiology consult. She does not have a coronary stent. She has never seen a excel specialist or had any heart procedures done. She had stress test 02/2023 she was having chest pain and it was negative. She has not had any chest pain since then. Her PCP gave her nitro, which she has not used. Discussed if she has chest pain she should present to ER. Left message for pt to call back regarding results. LDCT Lung Screen Results LungRADS category: 2S Incidentals: severe coronary artery calcifications LAD, right coronary with stent? Recommendations: Continue annual screening with LDCT in 12 months. Tatyana Perez APRN.KATHLEEN October 19, 2023 1:02 PM documented in this encounter [facility] 10-19-2023 Miscellaneous Notes Called and left a detailed voicemail notifying patient of providers message. Clinic phone number was left in case patient has any questions. ----- Message from Negrito Wilburn MD sent at 10/19/2023 11:21 AM EST ----- Kidney ultrasound to work up PROSPER is unremarkable aside from mild prominence of right kidney which is unchanged from 2019. No further imaging needed at this time. documented in this encounter [facility] 08-28-2023 Miscellaneous Notes KAITLYN 03/15/23 NOV 09/19/23 Patient has been identified by name and date of : Yes Requested Prescriptions Pending Prescriptions Disp Refills lisinopril (ZESTRIL) 10 mg tablet 45 tablet 3 Sig: Take 0.5 tablets by mouth once daily. omeprazole (PRILOSEC) 40 mg capsule 90 capsule 3 Sig: Take 1 capsule by mouth once daily. RX INSTRUCTIONS: Patient aware RX will be sent to pharmacy. No need to notify patient. Nneka Dinero documented in this encounter [facility] 08-07-2023 History of Present illness Narrative Subjective Cough Associated symptoms include myalgias. Pertinent negatives include no chills, no headaches, no sore throat and no shortness of breath. Molly Hidalgo is a 62 year old female who presents with 2 weeks of cough, nasal congestion, sneezing, and feeling tired. She had diarrhea one day within the past 2 weeks. She states her cough is productive. She has not had a fever. She has had some body aches. She has not taken any medication for her symptoms. Review of Systems Constitutional: Positive for malaise/fatigue. Negative for chills and fever. HENT: Positive for congestion. Negative for sinus pain and sore throat. Respiratory: Positive for cough and sputum production. Negative for shortness of breath. Cardiovascular: Negative. Gastrointestinal: Negative for abdominal pain, diarrhea, nausea and vomiting. Musculoskeletal: Positive for myalgias. Neurological: Negative for headaches. BP 110/70 Pulse 96 Temp 36.6 C (97.8 F) Resp 18 Wt 61.7 kg (136 lb) LMP 08/02/2005 SpO2 94% BMI 26.56 kg/m PAST MEDICAL HISTORY Diagnosis Date Abnormal glandular Papanicolaou smear of cervix Abn. Pap smear (cervix) Bulimia Chronic lower back pain Dr. Hall Colon polyps hyperplastic polyp 2014 COPD (chronic obstructive pulmonary disease) (HCC) Depression Diaphragmatic hernia without mention of obstruction or gangrene Esophageal reflux 06/09/2005 Family history of coronary artery disease Fibromyalgia History of alcohol dependence (HCC) History of drug abuse ([facility]) marijuana, cocaine, acid, methamphetamines, speed. Sober since age 20s Hypertension Iron deficiency anemia Lumbar stenosis with neurogenic claudication Mononucleosis Nephrolithiasis PAD (peripheral artery disease) (HCC) Prediabetes Pure hypercholesterolemia 06/09/2005 Tobacco use PAST SURGICAL HISTORY Procedure Laterality Date COLONOSCOPY FLX DX W/COLLJ SPEC WHEN PFRMD 07/23/13 Colonoscopy COLONOSCOPY FLX DX W/COLLJ SPEC WHEN PFRMD 01/14/2015 Colonoscopy, repeat in 3 years COLONOSCOPY FLX DX W/COLLJ SPEC WHEN PFRMD 10/22/2018 Colonoscopy EGD TRANSORAL BIOPSY SINGLE/MULTIPLE 07/08/09 ERCP DESTRUCTION/LITHOTRIPSY CALCULI ANY METHOD 2012 ESOPHAGOGASTRODUODENOSCOPY TRANSORAL DIAGNOSTIC 07/23/13 EGD PAST SURGICAL HISTORY OF 02/2018 L3-4 decompression, TLIF and fusion STEREOTACTIC CORE BIOPSY 02/26/07 left breast TOTAL ABDOMINAL HYSTERECT W/WO RMVL TUBE OVARY 1980s Hysterectomy, SEKOU. precancerous cells ALLERGIES Iodine [Contrast Dye] and Lipitor [Atorvastatin Calcium] MEDICATIONS metFORMIN (GLUCOPHAGE) 500 mg tablet Take 1 tablet by mouth twice daily with meals. . rosuvastatin (CRESTOR) 20 mg tablet Take 1 tablet by mouth daily at bedtime. DULoxetine (CYMBALTA) 60 mg capsule Take 1 capsule by mouth once daily. patient assistance buPROPion XL (WELLBUTRIN XL) 300 mg 24 hr tablet Take 1 tablet by mouth once daily. nitroglycerin sublingual (NITROSTAT) 0.4 mg SL tablet Dissolve 1 tablet under the tongue every 5 minutes as needed for chest pain. lisinopril (ZESTRIL, PRINIVIL) 10 mg tablet Take 0.5 tablets by mouth once daily. omeprazole (PRILOSEC) 40 mg capsule Take 1 capsule by mouth once daily. traMADol (ULTRAM) 50 mg tablet Take 50 mg by mouth twice daily. Cholecalciferol, Vitamin D3, 2,000 unit cap Take 1 tablet by mouth once daily. amoxicillin-clavulanate potassium (AUGMENTIN) 875-125 mg per tablet Take 1 tablet by mouth two times a day for 7 days. benzonatate (TESSALON PERLE) 100 mg capsule Take 2 capsules by mouth three times a day as needed for up to 10 days. pregabalin (LYRICA) 100 mg capsule Take 1 capsule by mouth twice daily for 90 days. FAMILY HISTORY Problem Relation Age of Onset Heart Father from heart attack, age 50 Hyperlipidemia Father Hypertension Father Hypertension Mother Blood Disease Mother ITP Thyroid Sister Cancer Maternal Grandmother colon Heart Paternal Grandfather Heart Paternal Uncle Cancer Maternal Uncle brain Social History Tobacco Use Smoking status: Every Day Packs/day: 0.50 Years: 40.00 Additional pack years: 0.00 Total pack years: 20.00 Types: Cigarettes Last attempt to quit: 12/08/2017 Years since quittin.6 Smokeless tobacco: Never Tobacco comments: currently 7 cigarettes per day 02/18/2019 Substance Use Topics Alcohol use: No Comment: sober since 01/2019 Drug use: No Comment: none in many yrs Objective Physical Exam Vitals and nursing note reviewed. HENT: Right Ear: Tympanic membrane, ear canal and external ear normal. Left Ear: Tympanic membrane, ear canal and external ear normal. Nose: Mucosal edema, congestion and rhinorrhea present. Mouth/Throat: Pharynx: Uvula midline. No oropharyngeal exudate or posterior oropharyngeal erythema. Cardiovascular: Rate and Rhythm: Normal rate and regular rhythm. Heart sounds: Normal heart sounds. Pulmonary: Effort: Pulmonary effort is normal. No respiratory distress. Breath sounds: Normal breath sounds. No wheezing or rales. Musculoskeletal: Cervical back: Neck supple. Lymphadenopathy: Cervical: No cervical adenopathy. Skin: General: Skin is warm and dry. Findings: No erythema or rash. Neurological: Mental Status: She is alert. ASSESSMENT/PLAN: 1. Upper respiratory tract infection, unspecified type - ICD9: 465.9, ICD10: J06.9 - AMOXICILLIN 875 MG-POTASSIUM CLAVULANATE 125 MG TABLET - BENZONATATE 100 MG CAPSULE - Follow-up with your PCP in 3-5 days if symptoms have not improved or sooner if symptoms worsen - Discussed red flags and need for immediate medical evaluation if any occur. - Discussed supportive care treatment with fluids, rest and analgesia. - Discussed expected course of illness Alexandra Morales APRN.COLD ROLLING SUPERVISOR documented in this encounter [facility] 08-07-2023 Instructions Alexandra Morales APRN.CNP - 08/07/2023 3:33 PM EST ASSESSMENT/PLAN: 1. Upper respiratory tract infection, unspecified type - ICD9: 465.9, ICD10: J06.9 - AMOXICILLIN 875 MG-POTASSIUM CLAVULANATE 125 MG TABLET - BENZONATATE 100 MG CAPSULE - Follow-up with your PCP in 3-5 days if symptoms have not improved or sooner if symptoms worsen - Discussed red flags and need for immediate medical evaluation if any occur. - Discussed supportive care treatment with fluids, rest and analgesia. - Discussed expected course of illness Alexandra Morales APRN.COLD ROLLING SUPERVISOR documented in this encounter [facility] 06-13-2023 Miscellaneous Notes Pt notified of results via [employer]. Deisy Duron Ma ----- Message from Negrito Wilburn MD sent at 06/13/2023 12:05 PM EDT ----- Negative mammogram. Repeat in 1 year. documented in this encounter [facility] 06-13-2023 Miscellaneous Notes June 13, 2023 PID: [id number] Molly Hidalgo [address] [place] [address] Dear Ms. Hidalgo, We are pleased to inform you that the results of your recent breast imaging exam on 06/13/2023 are normal. Your mammogram demonstrates that you have dense breast tissue, which could hide abnormalities. Dense breast tissue, in and of itself, is a relatively common condition. Therefore, this information is not provided to cause undue concern; rather, it is to raise your awareness and promote discussion with your health care provider regarding the presence of dense breast tissue in addition to other risk factors. Early detection of cancer is very important. We also understand recommendations regarding breast cancer screening are controversial. Please discuss with your primary care provider which strategy is best for you and whether a mammogram is right for you. Your imaging studies and report will be kept on file at [facility] as part of your permanent medical record and are available for your continuing care. Thank you for allowing us to help in meeting your health care needs. Sincerely, Dr. Lopez Interpreting Radiologist [facility] (Normal over 40) documented in this encounter [facility] 06-13-2023 History of Present illness Narrative Radiology Service Progress Note PATIENT NAME: Molly Hidalgo DATE OF SERVICE: June 13, 2023 TIME: 8:26 AM PATIENT IDENTITY VERIFICATION COMPLETED USING TWO (2) IDENTIFIERS: Name and Date of confirmed by patient verbally. FALL SCREENING: Has the patient had 2 falls in the last year or 1 fall with injury or currently using an Ambulatory Assistive Device (Walker, Cane, Wheelchair, Crutches, etc.)? No PATIENT GENDER DATA: Female. status: : No status: NO. PATIENT RELEVANT IMPLANT DATA REVIEWED: Not Applicable RADIOLOGY DEPARTMENT: Mammography PERIPHERAL IV DATA: Not applicable SIGNED BY: Margie Franz June 13, 2023 8:26 AM documented in this encounter [facility] 03-06-2023 Miscellaneous Notes MC message sent. ----- Message from Negrito Wilburn MD sent at 03/06/2023 11:19 AM EDT ----- Stress testing is normal. Negative for signs of blockage or heart strain. documented in this encounter [facility] 03-06-2023 History of Present illness Narrative RADIOLOGY SERVICE PROGRESS NOTE SERVICE DATE: 03/06/2023 SERVICE TIME: 07:50 AM PATIENT IDENTITY VERIFICATION COMPLETED USING TWO (2) STANDARD IDENTIFIERS: Name and Date of confirmed by patient verbally FALL SCREENING: Has the patient had 2 falls in the last year or 1 fall with injury or currently using an Ambulatory Assistive Device (Walker, Cane, Wheelchair, Crutches, etc.)? No PATIENT GENDER DATA: .female : No ALLERGIES: Reviewed and unchanged MEDICATIONS REVIEWED: No PATIENT RELEVANT IMPLANT DATA REVIEWED: Not Applicable CREATININE: Creatinine Date Value Ref Range Status 02/16/2023 0.84 0.58 - 0.96 mg/dL Final 06/17/2022 0.85 0.58 - 0.96 mg/dL Final 03/07/2022 0.76 0.58 - 0.96 mg/dL Final Estimated Glomerular Filtration Rate Date Value Ref Range Status 02/16/2023 78 >=60 mL/min/1.73m Final Comment: Estimated Glomerular Filtration Rate (eGFR) is calculated using the 2020 CKD-EPI creatinine equation. This equation utilizes serum creatinine, sex, and age as parameters. The creatinine assay has traceable calibration to isotope dilution-mass spectrometry. Refer to KDIGO guidelines for clinical interpretation. In patients with unstable renal function, e.g. those with acute kidney injury, the eGFR may not accurately reflect actual GFR. eGFR- Date Value Ref Range Status 09/03/2021 >60 Final P.O.C.T. RESULTS: POC done: Yes, See Lab Tab March 06, [address] PERFORMED: No IV SITE: Ambulatory: A peripheral IV was started in the Right antecubital site with a Angio cath: 22 gauge. POST EXAM PIV STATUS: Discontinued PROCEDURE TYPE: NM Stress: 12.5 mCi [id number] was administered IV for Rest Imaging at 07:59 by PRAVEEN Masterson. 31.3 mCi [id number] was administered IV for Stress Imaging at 09:07 by Ashley Cerrato. ADMINISTRATION TIME: PATIENT DISCHARGED TO: Ambulatory patient, left NM department area. A Diagnostic radioactive procedure has taken place, with no further precautions necessary other than routine body substance precautions. More information regarding radiation safety can be found using this link: [email or web address] SIGNATURE: BEAR Masterson) PATIENT NAME: Molly Hidalgo DATE: March 06, 2023 TIME: 10:15 AM PAGER/CONTACT #: documented in this encounter [facility] 02-22-2023 Miscellaneous Notes MC message sent. Meg Baldwin MA ----- Message from Negrito Wilburn MD sent at 02/22/2023 8:02 AM EDT ----- Repeat potassium level normal. Will recheck at future OV. documented in this encounter [facility] 02-20-2023 Miscellaneous Notes Spoke with pt and information listed below given. Pt verbalizes understanding. Génesis White LPN Message left for patient to call office back for update. Trista Espinosa LPN Blood counts normal. Potassium level elevated at 5.3. Suspect lab error. Recheck potassium level in next 1-2 days to confirm. Single liver marker also mildly elevated. Recommend avoidance of tylenol and alcohol. Recheck at future OV. documented in this encounter [facility] 02-17-2023 Miscellaneous Notes Pt called and is notified of providers results and instructions. Pt voices understanding. Bing Bryan RN TC to patient with no answer. Left VM to return call to office to receive results. DEANNA Cortes ----- Message from Negrito Wilburn MD sent at 02/16/2023 2:25 PM EDT ----- Normal chest xray. Follow up with stress testing as ordered. documented in this encounter [facility] 02-16-2023 History of Present illness Narrative Radiology Service Progress Note PATIENT NAME: Molly Hidalgo DATE OF SERVICE: February 16, 2023 TIME: 9:18 AM PATIENT IDENTITY VERIFICATION COMPLETED USING TWO (2) IDENTIFIERS: Name and Date of confirmed by patient verbally. FALL SCREENING: Has the patient had 2 falls in the last year or 1 fall with injury or currently using an Ambulatory Assistive Device (Walker, Cane, Wheelchair, Crutches, etc.)? No PATIENT GENDER DATA: Female. status: : No status: NO. PATIENT RELEVANT IMPLANT DATA REVIEWED: Yes RADIOLOGY DEPARTMENT: General X-ray: Exam(s) Completed: Chest X-Ray PERIPHERAL IV DATA: Not applicable SIGNED BY: RT Ester(R) February 16, 2023 9:18 AM documented in this encounter [facility] 02-16-2023 History of Present illness Narrative Chief Complaint Patient presents with: Shortness of Breath: X 4 months Chest Pain: X 4 months under the left breast HPI Molly Hidalgo is a 62 year old female who presents here today for Above Complaints.. Patient complaining of left sided chest pain for about 4 months. Thought this was a pulled muscle at first. Pain located under her left breast with radiation to her left side. Described as intermittent aching pain, up to 8/10. Exacerbated with coughing, twisting to her left. Not treating with anything OTC, ice or heat. Admits to worsening with exertion and improvement with rest. Denies radiation to neck/jaw, SOB, nausea, diaphoresis, lightheadedness, palpitations. Still smoking 4 cigarettes at this time. Trying to quit cold turkey. Refusing help today. Past medical history, appointments, medications, allergies reviewed. Previous Medical History PAST MEDICAL HISTORY Diagnosis Date Abnormal glandular Papanicolaou smear of cervix Abn. Pap smear (cervix) Bulimia Chronic lower back pain Dr. Hall Colon polyps hyperplastic polyp 2014 Depression Diaphragmatic hernia without mention of obstruction or gangrene Esophageal reflux 06/09/2005 Family history of coronary artery disease Fibromyalgia History of alcohol dependence (HCC) History of drug abuse (HCC) marijuana, cocaine, acid, methamphetamines, speed. Sober since age 20s Hypertension Iron deficiency anemia Lumbar stenosis with neurogenic claudication Mononucleosis Nephrolithiasis PAD (peripheral artery disease) (HCC) Prediabetes Pure hypercholesterolemia 06/09/2005 Tobacco use Previous Surgical History PAST SURGICAL HISTORY Procedure Laterality Date COLONOSCOPY FLX DX W/COLLJ SPEC WHEN PFRMD 07/23/13 Colonoscopy COLONOSCOPY FLX DX W/COLLJ SPEC WHEN PFRMD 01/14/2015 Colonoscopy, repeat in 3 years COLONOSCOPY FLX DX W/COLLJ SPEC WHEN PFRMD 10/22/2018 Colonoscopy EGD TRANSORAL BIOPSY SINGLE/MULTIPLE 07/08/09 ERCP DESTRUCTION/LITHOTRIPSY CALCULI ANY METHOD 2012 ESOPHAGOGASTRODUODENOSCOPY TRANSORAL DIAGNOSTIC 07/23/13 EGD PAST SURGICAL HISTORY OF 02/2018 L3-4 decompression, TLIF and fusion STEREOTACTIC CORE BIOPSY 02/26/07 left breast TOTAL ABDOMINAL HYSTERECT W/WO RMVL TUBE OVARY 1980s Hysterectomy, SEKOU. precancerous cells Family History FAMILY HISTORY Problem Relation Age of Onset Heart Father from heart attack, age 50 Hyperlipidemia Father Hypertension Father Hypertension Mother Blood Disease Mother ITP Thyroid Sister Cancer Maternal Grandmother colon Heart Paternal Grandfather Heart Paternal Uncle Cancer Maternal Uncle brain Patient Allergies ALLERGIES Allergen Reactions Iodine [Contrast Dy* Swelling PT HAD A REACTION OF SWELLING IN THROAT,TROUBLE BREATHING 24 HRS AFTER INJECTION OF IV DYE FOR A CT UROGRAM. KK Lipitor [Atorvastat* Other: See Comments Skin turned yellow Current Medications Current Outpatient Medications on File Prior to Visit Medication Sig DULoxetine (CYMBALTA) 60 mg capsule Take 1 capsule by mouth once daily. patient assistance rosuvastatin (CRESTOR) 20 mg tablet Take 1 tablet by mouth daily at bedtime. metFORMIN (GLUCOPHAGE) 500 mg tablet Take 1 tablet by mouth twice daily with meals. . lisinopril (ZESTRIL, PRINIVIL) 10 mg tablet Take 0.5 tablets by mouth once daily. omeprazole (PRILOSEC) 40 mg capsule Take 1 capsule by mouth once daily. buPROPion XL (WELLBUTRIN XL) 300 mg 24 hr tablet Take 1 tablet by mouth once daily. traMADol (ULTRAM) 50 mg tablet Take 50 mg by mouth twice daily. Cholecalciferol, Vitamin D3, 2,000 unit cap Take 1 tablet by mouth once daily. pentoxifylline ER (TRENTAL) 400 mg CR tablet Take 1 tablet by mouth three times daily with meals. (Patient not taking: Reported on 02/16/2023) pregabalin (LYRICA) 100 mg capsule Take 1 capsule by mouth twice daily for 90 days. No current facility-administered medications on file prior to visit. Social History Social History Tobacco Use Smoking status: Every Day Packs/day: 0.50 Years: 40.00 Pack years: 20.00 Types: Cigarettes Last attempt to quit: 12/08/2017 Years since quittin.1 Smokeless tobacco: Never Tobacco comments: currently 7 cigarettes per day 02/18/2019 Substance Use Topics Alcohol use: No Comment: sober since 01/2019 Drug use: No Comment: none in many yrs Review of Symptoms REVIEW OF SYSTEMS GENERAL: No weight loss, malaise or fevers RESPIRATORY: Admits to chronic cough from COPD without wheezing. CARDIOVASCULAR: See HPI GI: No nausea, vomiting, or diarrhea SKIN: Negative for lesions, rash, and itching EXAM: BP 102/68 Pulse 83 Resp 18 Wt 59.1 kg (130 lb 3.2 oz) LMP 08/02/2005 SpO2 95% BMI 25.43 kg/m General Appearance: Well appearing, alert, in no acute distress, well-hydrated, well nourished.. Skin: Skin color, texture, turgor normal, no suspicious rashes or lesions. Lungs: Lungs clear to auscultation. No wheezing, rhonchi, rales.. Heart: RRR without murmur, gallop, or rubs. No ectopy. Chest: No reproducible TTP on exam. Extremities: No deformities, edema, skin discoloration, clubbing or cyanosis. Good capillary refill. . Health Maintenance List BP CONTROLLED (<130/80) Never done MAMMOGRAM due on 03/14/2023 LUNG CANCER SCREENING due on 03/07/2023 ANNUAL PCP TEAM CHRONIC DISEASE VISIT due on 05/16/2023 COLORECTAL CANCER SCREENING due on 10/22/2023 PNEUMOCOCCAL(3 - PPSV23 if available, else PCV20) due on 2024 DIABETES SCREEN due on 06/17/2025 DTAP,TDAP,TD(2 - Td or Tdap) due on 02/21/2026 LIPID SCREEN due on 06/17/2027 INFLUENZA Completed HEPATITIS C SCREENING Completed HIV SCREENING Completed SHINGRIX VACCINE Completed COVID-19 VACCINE Completed PAP TESTING Discontinued HPV TESTING Discontinued Data reviewed EKG: NSR at 75 bpm, Possible inferior infarct age undetermined, abnormal EKG. Component Latest Ref Rng & Units 06/17/2022 WBC 3.70 - 11.00 k/uL 9.10 RBC 3.90 - 5.20 m/uL 4.09 Hemoglobin 11.5 - 15.5 g/dL 12.9 Hematocrit 36.0 - 46.0 % 38.7 MCV 80.0 - 100.0 fL 94.6 MCH 26.0 - 34.0 pg 31.5 MCHC 30.5 - 36.0 g/dL 33.3 RDW-CV 11.5 - 15.0 % 12.4 Platelet Count 150 - 400 k/uL 285 MPV 9.0 - 12.7 fL 9.0 Neut% % 55.5 Abs Neut (ANC) 1.45 - 7.50 k/uL 5.06 Lymph% % 30.7 Abs Lymph 1.00 - 4.00 k/uL 2.79 [place]% % 8.6 Abs [place] <0.87 k/uL 0.78 Eosin% % 3.7 Abs Eosin <0.46 k/uL 0.34 Baso% % 0.8 Abs Baso <0.11 k/uL 0.07 Immature Gran % % 0.7 IMMATURE GRANS (ABS) <0.10 k/uL 0.06 NRBC /100 WBC 0.0 Absolute nRBC <0.01 k/uL <0.01 DTYPE Auto Protein, Total 6.3 - 8.0 g/dL 6.6 Albumin 3.9 - 4.9 g/dL 4.3 Calcium 8.5 - 10.2 mg/dL 9.7 Bilirubin, Total 0.2 - 1.3 mg/dL 0.3 Alkaline Phosphatase 34 - 123 U/L 56 AST 13 - 35 U/L 18 ALT 7 - 38 U/L 20 Glucose 74 - 99 mg/dL 99 BUN 7 - 21 mg/dL 15 Creatinine 0.58 - 0.96 mg/dL 0.85 Sodium 136 - 144 mmol/L 138 Potassium 3.7 - 5.1 mmol/L 4.2 Chloride 97 - 105 mmol/L 101 CO2 22 - 30 mmol/L 25 Anion Gap 9 - 18 mmol/L 12 eGFR >=60 mL/min/1.73m 78 Total Cholesterol, Nonfasting <200 mg/dL 151 Triglycerides, Nonfasting <150 mg/dL 158 (H) HDL Cholesterol, Nonfasting >39 mg/dL 72 LDL Cholesterol, Nonfasting <100 mg/dL 47 Non HDL Cholesterol, Nonfasting <130 mg/dL 79 VLDL Cholesterol, Nonfasting <30 mg/dL 32 (H) Total Chol/HDL Ratio, Nonfasting <5.10 mg/dL 2.10 LDL/HDL Ratio, Nonfasting <2.54 mg/dL 0.65 ASSESSMENT/PLAN: 1. Chest pain, unspecified type - ICD9: 786.50, ICD10: R07.9 Chest pain of unclear etiology, patient with significant risk factor(s) of Hypertension, Hyperlipidemia, Family history of CAD, and smoking. EKG today negative for acute ischemia, but does show possible old infarct. Obtain Pharmacologic stress test as patient is unable to run on treadmill due to her chronic back pain. Will obtain CXR today and labs as ordered. Red flags for re-assessment reviewed with patient in detail. Given rx for nitro PRN. - XR CHEST 2V FRONTAL/LAT - ECG COMPLETE 2. Primary hypertension - ICD9: 401.9, ICD10: I10 - Controlled - Continue current medications - Recommend home blood pressure monitoring, to bring results to next visit - Encouraged sodium restriction, DASH or Mediterranean diet - Recommend regular aerobic exercise 3. Hyperlipidemia, mixed - ICD9: 272.2, ICD10: E78.2 - Controlled - Continue current medications - Counseled on healthy diet and regular exercise 4. Tobacco use disorder - ICD9: 305.1, ICD10: F17.200 - Cessation encouraged. - Physiologic and physical aspects of tobacco addiction as well as strategies for quitting were discussed. - Counseling was given focusing on the harmful effects of this addiction especially given the patient's medical condition(s) which will be worsened because of the chemicals in tobacco. - Recommended to called 1-800-QUIT NOW 5. Abnormal EKG - ICD9: 794.31, ICD10: R94.31 See above. I spent a total of 45 minutes on the date of the service which included preparing to see the patient, [id number] patient care, completing clinical documentation, obtaining and/or reviewing separately obtained history, performing a medically appropriate examination, counseling and educating the patient/family/caregiver, ordering medications, tests, or procedures, and communicating results to the patient/family/caregiver. Negrito Wilburn MD documented in this encounter [facility] 09-08-2022 Miscellaneous Notes [place] 05/16/22 No future visit scheduled. Patient has been identified by name and date of : Yes Last office visit in this department: 05/16/2022 RX INSTRUCTIONS: Patient aware RX will be sent to pharmacy. No need to notify patient. Patient phones requesting refills as follows: Requested Prescriptions Pending Prescriptions Disp Refills DULoxetine (CYMBALTA) 60 mg capsule 90 capsule 1 Sig: Take 1 capsule by mouth once daily. patient assistance rosuvastatin (CRESTOR) 20 mg tablet 90 tablet 1 Sig: Take 1 tablet by mouth daily at bedtime. Please review and advise. Tete Wolfe documented in this encounter [facility] 06-20-2022 Miscellaneous Notes Letter mailed to pt home of results. Deisy Duron MA ----- Message from Negrito Wilburn MD sent at 06/19/2022 1:05 PM EDT ----- Cholesterol is much better on her current regimen. Other labs are normal. No changes to regimen. documented in this encounter [facility] 06-03-2022 Miscellaneous Notes Called and left a detailed voicemail notifying patient of providers message. Hospital phone number was left in case patient had any questions. Bing Babulski, RN Her vascular study has already been addressed and she was started on trental so I'm unsure as to what other testing she is referring to. Jessica Palencia APRN.COLD ROLLING SUPERVISOR Pt called in ask if someone could look at her Vascular lab study and call her back. Please call and advise. documented in this encounter [facility] 05-19-2022 Miscellaneous Notes Call to pt. LM on VM (identifiable) that Rx has been sent into [facility]. If questions to contact the office. Sade Rosario Ma Rx ordered Radha Carroll MD Patient calls and notified of results and providers instructions. Patient verbalizes understanding. Patient reports that she does have left calf pain with ambulating and would like to try the trental. Order pended. Kalyani Hudson RN Phoned patient and Vm left to inquire if she was updated with vascular results from 05/13/22 at today's visit. Requested patient return call to update wether or not she had been updated or not. Message left for patient to return call to receive update on results, recommendations and orders from PCP. MAX of left foot 0.48 at rest. Recommend she start on ASA 81 mg OTC and continue on Crestor. Will refer to vascular for further evaluation. If she is getting pain in left calf with walking, please let me know and will start her on trental. Recommend walking daily to help with circulation. Results placed on provider's desk. Thank you. hO carlisled. He said it takes about 1-2 weeks to get the results and then to forward them? States he will call them today and see if their system can get it forwarded faster. Trista Espinosa LPN Still have not seen these results. Please have them faxed again to our office. Still awaiting results to confirm and make recommendations. I believe this is through pt's insurance and this is a visiting provider. They were more then likely making you aware of this and are faxing the Visit Note. Will await the results/report then route to you for review. Sade Rosario Ma I do not have these records and does not look like this was ordered by our office. I would have her contact the ordering provider about these results as well for further recommendations. Oh Smith CONTROL CLERK from [employer] calling with findings abnormal PAD testing left leg significant decrease 0.49 pain with ambulation. Right leg was normal. Results will be faxed to PCP office. documented in this encounter [facility] 05-18-2022 History of Present illness Narrative Molly Hidalgo 1960 REFERRING PHYSICIAN: Negrito Wilburn,* CHIEF COMPLAINT: Consult (/Left Breast/) HPI: The patient is a 61 year old female presents with abnormal left breast mammograms She denies palpable breast masses. She denies nipple discharge. She denies breast pain. She had previous breast biopsy (needle core) sustaining large hematoma. She denies breast or ovarian cancer in the family. Her gynecological history is as follows: menarche onset at age 12, 0, BCP use initially at age 15 for about 6 years, surgical menopause late 30s, denies HRT Mammograms 05/03/2022 There are a grouped pleomorphic calcifications in the left breast central to the nipple middle depth. No other significant masses or calcifications are seen in the breast. IMPRESSION: SUSPICIOUS FINDING - BIOPSY SHOULD BE CONSIDERED The grouped pleomorphic calcifications in the left breast are suspicious of malignancy. A stereotactic biopsy is recommended. PAST MEDICAL HISTORY Diagnosis Date Abnormal glandular Papanicolaou smear of cervix Abn. Pap smear (cervix) Bulimia Chronic lower back pain Dr. Hall Colon polyps hyperplastic polyp 2014 Depression Diaphragmatic hernia without mention of obstruction or gangrene Esophageal reflux 06/09/2005 Family history of coronary artery disease Fibromyalgia History of alcohol dependence (HCC) History of drug abuse (HCC) marijuana, cocaine, acid, methamphetamines, speed. Sober since age 20s Hypertension Iron deficiency anemia Lumbar stenosis with neurogenic claudication Mononucleosis Nephrolithiasis PAD (peripheral artery disease) (HCC) Prediabetes Pure hypercholesterolemia 06/09/2005 Tobacco use PAST SURGICAL HISTORY Procedure Laterality Date COLONOSCOPY FLX DX W/COLLJ SPEC WHEN PFRMD 07/23/13 Colonoscopy COLONOSCOPY FLX DX W/COLLJ SPEC WHEN PFRMD 01/14/2015 Colonoscopy, repeat in 3 years COLONOSCOPY FLX DX W/COLLJ SPEC WHEN PFRMD 10/22/2018 Colonoscopy EGD TRANSORAL BIOPSY SINGLE/MULTIPLE 07/08/09 ERCP DESTRUCTION/LITHOTRIPSY CALCULI ANY METHOD 2012 ESOPHAGOGASTRODUODENOSCOPY TRANSORAL DIAGNOSTIC 07/23/13 EGD PAST SURGICAL HISTORY OF 02/2018 L3-4 decompression, TLIF and fusion STEREOTACTIC CORE BIOPSY 02/26/07 left breast TOTAL ABDOMINAL HYSTERECT W/WO RMVL TUBE OVARY 1980s Hysterectomy, SEKOU. precancerous cells Current Outpatient Medications Medication Sig rosuvastatin (CRESTOR) 20 mg tablet Take 1 tablet by mouth daily at bedtime. buPROPion XL (WELLBUTRIN XL) 300 mg 24 hr tablet Take 1 tablet by mouth once daily. DULoxetine (CYMBALTA) 60 mg capsule Take 1 capsule by mouth once daily. patient assistance metFORMIN (GLUCOPHAGE) 500 mg tablet Take 1 tablet by mouth twice daily with meals. . omeprazole (PRILOSEC) 40 mg capsule Take 1 capsule by mouth once daily. lisinopril (ZESTRIL, PRINIVIL) 10 mg tablet Take 0.5 tablets by mouth once daily. pregabalin (LYRICA) 100 mg capsule Take 1 capsule by mouth twice daily for 90 days. traMADol (ULTRAM) 50 mg tablet Take 50 mg by mouth three times daily. Cholecalciferol, Vitamin D3, 2,000 unit cap Take 1 tablet by mouth once daily. ALLERGIES: Iodine [Contrast Dye] and Lipitor [Atorvastatin Calcium] PERSONAL HISTORY: Social History Tobacco Use Smoking status: Every Day Packs/day: 0.50 Years: 40.00 Pack years: 20.00 Types: Cigarettes Last attempt to quit: 12/08/2017 Years since quittin.4 Smokeless tobacco: Never Tobacco comments: currently 7 cigarettes per day 02/18/2019 Substance Use Topics Alcohol use: No Comment: sober since 01/2019 Drug use: No Comment: none in many yrs FAMILY HISTORY Problem Relation Age of Onset Heart Father from heart attack, age 50 Hyperlipidemia Father Hypertension Father Hypertension Mother Blood Disease Mother ITP Thyroid Sister Cancer Maternal Grandmother colon Heart Paternal Grandfather Heart Paternal Uncle Cancer Maternal Uncle brain The review of systems data was entered by the nurse and reviewed by ks Nursing Notes: [facility] 05/18/2022 1:17 PM Signed REVIEW OF SYSTEMS: General: The patient denies fatigue, denies weight loss, denies weight gain, denies feeling hot, and denies feelings of cold. Eyes: The patient denies glaucoma, denies eye injury/surgery, wears glasses or contacts. Ear/Nose/Throat: The patient denies allergies, denies hayfever, denies ear infections, and denies bloody noses. Cardiovascular: The patient denies chest pain, denies heart disease, NOTES high blood pressure,denies cardiac stent, denies prior heart attack, denies irregular heart beat, NOTES high cholesterol, denies poor circulation, denies heart failure, other cardiac issues, denies claudication, denies cold feet, denies peripheral arterial stent. Respiratory: The patient denies tuberculosis, denies pneumonia, denies frequent cough, denies pulmonary embolism, denies shortness of breath, and denies coughing up blood. Gastrointestinal: The patient denies difficulty swallowing, NOTES acid reflux, denies ulcers, denies vomiting, denies jaundice/hepatitis, denies gallbladder problems, denies black or tarry stools, denies hemorrhoids, denies bleeding from rectum, denies diverticulitis, denies constipation, denies diarrhea, denies loss of stool control, and denies hernias. Kidney/Bladder: The patient NOTES kidney stones, denies urine infections, and denies bloody urine. Skin: The patient denies a history of skin cancer, denies bleeding/changing moles, and denies a history of skin rash. Neurologic: The patient denies a history of epilepsy/convulsions, denies headaches, denies head/spinal injuries, and denies stroke/TIA. Psychiatric: The patient denies psychiatric medications, denies depression, and denies voices, denies substance abuse. Endocrine: The patient denies thyroid disorders, denies diabetes, and denies hormonal problems. Hematologic: The patient NOTES a history of bruising, denies bleeding, and denies anemia, denies blood clots. Infections: The patient NOTES a history of measles and mumps, denies rheumatic fever, and denies sexually transmitted diseases. Musculoskeletal: The patient NOTES back pain/injury, NOTES back problems, denies sciatica, denies knee/foot trouble, NOTES arthritis, or denies gout. When was patient's last Mammogram screening? 05/03/2022 Last Colonoscopy: 10/22/2018 [facility] [place] PHYSICAL EXAMINATION: General: The patient is 61 year old female, well nourished, well hydrated in no acute distress. The patient is oriented to time, place, and person. VITALS: Blood pressure 129/83, pulse 98, temperature (!) 35.8 C (96.4 F), height 152.4 cm (5'), weight 56.7 kg (125 lb), last menstrual period 08/02/2005, SpO2 95 %. Body mass index is 24.41 kg/m . Head - Normocephalic. EOM intact with sclera clear and no icterus noted. Neck - supple with no jugular venous distention noted. Trachea is midline. No thyroid enlargement or thyroid nodules detected. No masses noted. Chest/breast - no asymmetry of breasts noted, no suspicious skin lesions noted, no nipple discharge and both nipples everted, no breast masses noted Lungs - clear to auscultation. Normal breath sounds. No rales/rhonchi/wheezing noted. No labored breathing noted, such as retractions. No cough heard. Heart - normal S1 and S2 auscultated. No rubs/clicks/murmurs noted. Regular rate. Abdomen - soft and benign. Extremities - no calf tenderness noted. No pitting edema noted. Skin - normal skin integrity. Lymph - no cervical adenopathy detected, no supraclavicular adenopathy detected, no axillary adenopathy detected Neurological - gait normal, no focal deficits noted Psych - calm and appropriate RADIOLOGIC STUDIES: As Noted Assessment IMPRESSION: abnormal left breast mammograms PLAN: I have discussed the above with the patient. I have offered left stereotactic breast biopsy. I have explained the procedure to the patient. I have counseled the patient as to the risks of the procedure, including but not limited to: infection, bleeding, injury to any blood vessels/nerves, scar tissue, wound infections, complications of anesthesia, etc. - the patient understands. The patient wishes to proceed. I have answered all questions to the patient s satisfaction and the patient has no further questions. I have confirmed and edited as necessary, the PFSH and ROS obtained by others. Consultation requested by Dr. Negrito Wilburn for an opinion regarding patient's abnormal left breast mammograms. My final recommendations will be communicated back to the requesting physician by way of shared Medical record or letter to requesting physician via US mail. . Diagnoses: (R92.1) Calcification of left breast on mammography (primary encounter diagnosis) Return to Clinic: The patient will be scheduled for left stereotactic breast biopsy at [facility] as per her wishes. Medical Decision Making: Problems: Moderate: New problem with uncertain prognosis Data: Unique test result(s) reviewed: 1 Risk: Low: Low risk from testing/treatment Medical Decision Making Level: 3 - Low Trudy Greco MD documented in this encounter [facility] 05-18-2022 Nurse Note REVIEW OF SYSTEMS: General: The patient denies fatigue, denies weight loss, denies weight gain, denies feeling hot, and denies feelings of cold. Eyes: The patient denies glaucoma, denies eye injury/surgery, wears glasses or contacts. Ear/Nose/Throat: The patient denies allergies, denies hayfever, denies ear infections, and denies bloody noses. Cardiovascular: The patient denies chest pain, denies heart disease, NOTES high blood pressure,denies cardiac stent, denies prior heart attack, denies irregular heart beat, NOTES high cholesterol, denies poor circulation, denies heart failure, other cardiac issues, denies claudication, denies cold feet, denies peripheral arterial stent. Respiratory: The patient denies tuberculosis, denies pneumonia, denies frequent cough, denies pulmonary embolism, denies shortness of breath, and denies coughing up blood. Gastrointestinal: The patient denies difficulty swallowing, NOTES acid reflux, denies ulcers, denies vomiting, denies jaundice/hepatitis, denies gallbladder problems, denies black or tarry stools, denies hemorrhoids, denies bleeding from rectum, denies diverticulitis, denies constipation, denies diarrhea, denies loss of stool control, and denies hernias. Kidney/Bladder: The patient NOTES kidney stones, denies urine infections, and denies bloody urine. Skin: The patient denies a history of skin cancer, denies bleeding/changing moles, and denies a history of skin rash. Neurologic: The patient denies a history of epilepsy/convulsions, denies headaches, denies head/spinal injuries, and denies stroke/TIA. Psychiatric: The patient denies psychiatric medications, denies depression, and denies voices, denies substance abuse. Endocrine: The patient denies thyroid disorders, denies diabetes, and denies hormonal problems. Hematologic: The patient NOTES a history of bruising, denies bleeding, and denies anemia, denies blood clots. Infections: The patient NOTES a history of measles and mumps, denies rheumatic fever, and denies sexually transmitted diseases. Musculoskeletal: The patient NOTES back pain/injury, NOTES back problems, denies sciatica, denies knee/foot trouble, NOTES arthritis, or denies gout. When was patient's last Mammogram screening? 05/03/2022 Last Colonoscopy: 10/22/2018 [facility] [place] documented in this encounter [facility] 05-16-2022 History of Present illness Narrative 05/16/2022 Patient presents with: Lower extremity circulation: Left foot SUBJECTIVE: This is a 61 year old that is here today for Above Complaints. Reports [facility] came into her home and performed a circulation test and told her her left foot had decreased circulation. Patient reports for years she has had left foot pain if she stands on it too long and some numbness, however she contributes this to her chronic back pain. Positive for hx of smoking. Denies leg pain, skin colored changes to feet or legs or cool feet. PAST MEDICAL HISTORY Diagnosis Date Abnormal glandular Papanicolaou smear of cervix Abn. Pap smear (cervix) Bulimia Chronic lower back pain Dr. Hall Colon polyps hyperplastic polyp 2014 Depression Diaphragmatic hernia without mention of obstruction or gangrene Esophageal reflux 06/09/2005 Family history of coronary artery disease Fibromyalgia History of alcohol dependence (HCC) History of drug abuse (HCC) marijuana, cocaine, acid, methamphetamines, speed. Sober since age 20s Hypertension Iron deficiency anemia Lumbar stenosis with neurogenic claudication Mononucleosis Nephrolithiasis PAD (peripheral artery disease) ([facility]) Prediabetes Pure hypercholesterolemia 06/09/2005 Tobacco use ALLERGIES Iodine [Contrast Dye] and Lipitor [Atorvastatin Calcium] MEDICATIONS Current Outpatient Medications Medication Sig rosuvastatin (CRESTOR) 20 mg tablet Take 1 tablet by mouth daily at bedtime. buPROPion XL (WELLBUTRIN XL) 300 mg 24 hr tablet Take 1 tablet by mouth once daily. DULoxetine (CYMBALTA) 60 mg capsule Take 1 capsule by mouth once daily. patient assistance metFORMIN (GLUCOPHAGE) 500 mg tablet Take 1 tablet by mouth twice daily with meals. . omeprazole (PRILOSEC) 40 mg capsule Take 1 capsule by mouth once daily. lisinopril (ZESTRIL, PRINIVIL) 10 mg tablet Take 0.5 tablets by mouth once daily. pregabalin (LYRICA) 100 mg capsule Take 1 capsule by mouth twice daily for 90 days. traMADol (ULTRAM) 50 mg tablet Take 50 mg by mouth three times daily. Cholecalciferol, Vitamin D3, 2,000 unit cap Take 1 tablet by mouth once daily. No current facility-administered medications for this visit. Medications and allergies reviewed by this provider. SOCIAL HISTORY Social History Tobacco Use Smoking status: Every Day Packs/day: 0.50 Years: 40.00 Pack years: 20.00 Types: Cigarettes Last attempt to quit: 12/08/2017 Years since quittin.4 Smokeless tobacco: Never Tobacco comments: currently 7 cigarettes per day 02/18/2019 Substance Use Topics Alcohol use: No Comment: sober since 01/2019 Drug use: No Comment: none in many yrs REVIEW OF SYSTEMS All other reviewed and negative other than HPI. OBJECTIVE: BP 114/70 Pulse 78 Resp 16 Wt 56.4 kg (124 lb 6.4 oz) LMP 08/02/2005 SpO2 97% BMI 24.42 kg/m . Vital signs reviewed by this provider. APPEARANCE Well appearing, alert, in no acute distress, well-hydrated, well nourished. EXTREMITIES Extremities normal, No deformities, No skin discoloration, No edema, and 1+ pedal pulses with cap refill < 3 seconds bilaterally LUNG CANCER SCREENING due on 03/07/2023 INFLUENZA(1) due on 05/19/2022 ANNUAL PCP TEAM CHRONIC DISEASE VISIT due on 03/07/2023 BP CONTROLLED (<130/80) due on 03/07/2023 MAMMOGRAM due on 03/14/2023 COLORECTAL CANCER SCREENING due on 10/22/2023 PNEUMOCOCCAL(3 - PPSV23 or PCV20) due on 2024 DIABETES SCREEN due on 03/07/2025 DTAP,TDAP,TD(2 - Td or Tdap) due on 02/21/2026 LIPID SCREEN due on 03/07/2027 HEPATITIS C SCREENING Completed HIV SCREENING Completed SHINGRIX VACCINE Completed COVID-19 VACCINE Completed PAP TESTING Discontinued HPV TESTING Discontinued ASSESSMENT/PLAN: 1. Decreased pedal pulses - ICD9: 785.9, ICD10: R09.89 - no red flag symptoms or exam findings - red flag symptoms discussed, verbalizes understanding - PVR ANK [facility] - follow-up pending testing Jessica Palencia APRN.KATHLEEN Prescription instructions reviewed with patient as applicable. Patient advised if symptoms do not improve or if symptoms worsen sooner, to contact their primary care physician. Potential red flag symptoms discussed with the patient. Reviewed appropriate action plan to take if red flag symptoms occur. Patient agreeable to treatment plan. I spent a total of 22 minutes on the date of the service which included preparing to see the patient, [id number] patient care, completing clinical documentation, obtaining and/or reviewing separately obtained history, performing a medically appropriate examination, counseling and educating the patient/family/caregiver, and ordering medications, tests, or procedures. documented in this encounter [facility] 05-04-2022 Miscellaneous Notes Spoke with patient. Given message from provider's office. Patient verbalizes understanding. She states she needs to contact her insurer and will call back to schedule appointment with GEN SURG. Amanda Rivas RN Message left to call back for update. Trista Espinosa LPN Please call patient and let her know her mammogram shows suspicious calcifications. They recommend biopsy. I have placed consult to general surgery. Please assist in scheduling. Thanks, Jessica Palencia APRN.CNP documented in this encounter [facility] 03-29-2022 Miscellaneous Notes Pt called and is notified of providers results and instructions. Pt voices understanding. Bing Bryan RN Repeat labs continues to show mild elevation in WBC and monocytes. This could indicate chronic inflammation and may be caused by her recent steroid injections vs tobacco use. Will continue to monitor with repeat labs in 1-2 months. Call if she develops illness/symptoms of new infection. Recommend smoking cessation. Please let me know if she would like help quitting. documented in this encounter [facility] 03-15-2022 History of Present illness Narrative Opened in error Jessica Palencia APRN.KATHLEEN documented in this encounter [facility] 03-14-2022 Miscellaneous Notes Patient calls in and results and provider message given. Patient verbalizes understanding. Phone number given to patient to schedule Diagnostic mammogram/US of left breast. Kalyani Hudson RN Message left to call back for update. Trista Espinosa LPN Please call patient and let her know she needs additional views of left breat. Orders in place. Please assist in scheduling. Jessica Palencia APRN.CNP Mammography said you'll put the order in as left diagnostic mammogram Can you call mammography and ask them if there are special orders I need to put in for magnification views- I have never seen a mammogram say that so I am not sure what that means. Thanks, Jessica Palencia APRN.CNP documented in this encounter [facility] 03-14-2022 Miscellaneous Notes March 14, 2022 PID: [id number] Molly Hidalgo [address] [place] [address] Dear Ms. Hidalgo, Your recent breast imaging exam on 03/14/2022 showed a possible finding that requires additional imaging studies for a complete evaluation. Most such findings are probably benign (not cancer). Your mammogram demonstrates that you have dense breast tissue, which could hide abnormalities. Dense breast tissue, in and of itself, is a relatively common condition. Therefore, this information is not provided to cause undue concern; rather, it is to raise your awareness and promote discussion with your health care provider regarding the presence of dense breast tissue in addition to other risk factors. If you have a healthcare provider who ordered/prescribed your screening mammogram: Please call [phone] or EXT: [phone] to schedule an appointment for your additional imaging (if you have not already done so). If you DO NOT have a healthcare provider (ie you did not have an order/prescription for your screening mammogram): Please call to schedule an appointment for your additional imaging (if you have not already done so). You must have an order/prescription from your physician when calling to schedule your appointment. If your order/prescription is not electronic, you must bring the hard copy with you on the day of your exam to avoid delays. Your imaging studies and reports are kept on file at [facility] as part of your permanent medical record, and are available for your continuing care. Thank you for allowing us to help in meeting your health care needs. Sincerely, Dr. Balderrama Interpreting Radiologist [facility] (Additional imaging) documented in this encounter [facility] 03-14-2022 History of Present illness Narrative Radiology Service Progress Note PATIENT NAME: Molly Hidalgo DATE OF SERVICE: March 14, 2022 TIME: 1:11 PM PATIENT IDENTITY VERIFICATION COMPLETED USING TWO (2) IDENTIFIERS: Name and Date of confirmed by patient verbally. FALL SCREENING: Has the patient had 2 falls in the last year or 1 fall with injury or currently using an Ambulatory Assistive Device (Walker, Cane, Wheelchair, Crutches, etc.)? No PATIENT GENDER DATA: Female. status: : No status: NO. PATIENT RELEVANT IMPLANT DATA REVIEWED: Not Applicable RADIOLOGY DEPARTMENT: Mammography PERIPHERAL IV DATA: Not applicable SIGNED BY: Juan Sonjobandtalent Laura March 14, 2022 1:11 PM documented in this encounter [facility] 03-10-2022 Miscellaneous Notes Patient notified and voiced understanding. Trish Higginbotham MA Should come in in 24-48 hours for repeat CBC. Stop pravastatin and will start Crestor 20 mg daily to lower her cholesterol. This is higher intensity statin similar to Lipitor and Pravastatin she has taken in the past. Recheck in 3-6 months. Pt called and is notified of providers results and instructions. Pt voices understanding. Pt reports she has been taking her Pravastatin daily. Pt asking when provider would like her to get CBC rechecked. Bing Bryan, RN A1C improving gradually, still in prediabetic range. Work on low carb diet, regular exercise Cholesterol is up compared to 1 year ago. Has she been taking her Pravastatin daily as prescribed? Normal iron levels. WBC elevated. This may be related to her epidural steroid injections. Recommend repeat CBC with diff for further evaluation. documented in this encounter [facility] 03-07-2022 Miscellaneous Notes Reviewed. documented in this encounter [facility] 03-07-2022 History of Present illness Narrative Chief Complaint Patient presents with: Physical HPI Molly Hidalgo is a 61 year old female who presents here today for annual physical. Denies recent hospitalizations or ER visits. HTN: Ms. Hidalgo indicates that she is feeling well and denies any symptoms referable to elevated blood pressure. Specifically denies headache, chest pain, palpitations, dyspnea and peripheral edema. Patient denies any side effects of her medication(s) and is compliant with their regimen. She does not check BP's generally. Molly gets minimal exercise. She watches her diet for sodium, low fat and low cholesterol most of the time. Last 3 Encounter BP Readings: Date: BP: 03/07/2022 118/76 09/03/2021 110/76 12/10/2020 114/84 GERD controlled on Prilosec daily. Needs refill today. States if she misses a dose she gets heartburn. Patient on Cymbalta and changed her Wellbutrin to XL once daily. States that her depression symptoms have worsened since last OV on this new medication. Feels ok during the day when she is outside, but becomes depressed in the evening when she is by herself. Denies SI/HI. Not seeing counseling now, but would be agreeable to referral. Due for repeat A1C for prediabetes. Taking metformin as prescribed without side effects. Denies hyperglycemia symtpoms. Following up with Dr. Hall for chronic lower back pain. Getting BENTLEY every 3 months which helps with her pain. Has tramadol and lyrica at home for pain. Due for mammogram. Refusing lung cancer screening through [facility]. Does not want to drive outside of [place] so will contact [facility]. Still smoking 7-8 cigarettes per day. Not ready to quit smoking. Past medical history, appointments, medications, allergies reviewed. Previous Medical History PAST MEDICAL HISTORY Diagnosis Date Abnormal glandular Papanicolaou smear of cervix Abn. Pap smear (cervix) Bulimia Chronic lower back pain Dr. Hall Colon polyps hyperplastic polyp 2014 Depression Diaphragmatic hernia without mention of obstruction or gangrene Esophageal reflux 06/09/2005 Family history of coronary artery disease Fibromyalgia History of alcohol dependence (HCC) History of drug abuse (HCC) marijuana, cocaine, acid, methamphetamines, speed. Sober since age 20s Hypertension Iron deficiency anemia Lumbar stenosis with neurogenic claudication Mononucleosis Nephrolithiasis Prediabetes Pure hypercholesterolemia 06/09/2005 Tobacco use Previous Surgical History PAST SURGICAL HISTORY Procedure Laterality Date COLONOSCOPY FLX DX W/COLLJ SPEC WHEN PFRMD 07/23/13 Colonoscopy COLONOSCOPY FLX DX W/COLLJ SPEC WHEN PFRMD 01/14/2015 Colonoscopy, repeat in 3 years COLONOSCOPY FLX DX W/COLLJ SPEC WHEN PFRMD 10/22/2018 Colonoscopy EGD TRANSORAL BIOPSY SINGLE/MULTIPLE 07/08/09 ERCP DESTRUCTION/LITHOTRIPSY CALCULI ANY METHOD 2012 ESOPHAGOGASTRODUODENOSCOPY TRANSORAL DIAGNOSTIC 07/23/13 EGD PAST SURGICAL HISTORY OF 02/2018 L3-4 decompression, TLIF and fusion STEREOTACTIC CORE BIOPSY 02/26/07 left breast TOTAL ABDOMINAL HYSTERECT W/WO RMVL TUBE OVARY Hysterectomy, SEKOU. precancerous cells Family History FAMILY HISTORY Problem Relation Age of Onset Heart Father from heart attack, age 50 Hyperlipidemia Father Hypertension Father Hypertension Mother Blood Disease Mother ITP Thyroid Sister Cancer Maternal Grandmother colon Heart Paternal Grandfather Heart Paternal Uncle Cancer Maternal Uncle brain Patient Allergies ALLERGIES Allergen Reactions Iodine [Contrast Dy* Swelling PT HAD A REACTION OF SWELLING IN THROAT,TROUBLE BREATHING 24 HRS AFTER INJECTION OF IV DYE FOR A CT UROGRAM. KK Lipitor [Atorvastat* Other: See Comments Skin turned yellow Current Medications Current Outpatient Medications on File Prior to Visit Medication Sig omeprazole (PRILOSEC) 40 mg capsule Take 1 capsule by mouth once daily. metFORMIN (GLUCOPHAGE) 500 mg tablet Take 1 tablet by mouth twice daily with meals. . lisinopril (ZESTRIL, PRINIVIL) 10 mg tablet Take 0.5 tablets by mouth once daily. DULoxetine (CYMBALTA) 60 mg capsule Take 1 capsule by mouth once daily. patient assistance buPROPion XL (WELLBUTRIN XL) 150 mg 24 hr tablet Take 1 tablet by mouth once daily. pravastatin (PRAVACHOL) 80 mg tablet Take 1 tablet by mouth once daily. pregabalin (LYRICA) 100 mg capsule Take 1 capsule by mouth twice daily for 90 days. traMADol (ULTRAM) 50 mg tablet Take 50 mg by mouth three times daily. Cholecalciferol, Vitamin D3, 2,000 unit cap Take 1 tablet by mouth once daily. No current facility-administered medications on file prior to visit. Social History Social History Tobacco Use Smoking status: Current Every Day Smoker Packs/day: 0.50 Years: 40.00 Pack years: 20.00 Types: Cigarettes Last attempt to quit: 12/08/2017 Years since quittin.2 Smokeless tobacco: Never Used Tobacco comment: currently 7 cigarettes per day 02/18/2019 Substance Use Topics Alcohol use: No Comment: sober since 01/2019 Drug use: No Comment: none in many yrs Review of Symptoms REVIEW OF SYSTEMS GENERAL: No weight loss, malaise or fevers HEENT: Negative for frequent or significant headaches, No changes in hearing or vision, no nose bleeds or other nasal problems NECK: Negative for lumps, goiter, pain and significant neck swelling RESPIRATORY: Negative for cough, hemoptysis, wheezing, COPD, dyspnea or shortness of breath CARDIOVASCULAR: Negative for chest pain, leg swelling, hypertension, CHF or palpitations GI: No nausea, vomiting, or diarrhea : No history of dysuria, frequency or incontinence RESOLUTION SPECIALIST: Negative for abnormal vaginal bleeding, abnormal vaginal discharge MUSCULOSKELETAL: Negative for joint pain or swelling, back pain or muscle pain SKIN: Negative for lesions, rash, and itching EXAM: BP 118/76 Pulse 88 Ht 152 cm (4' 11.84) Wt 58.9 kg (129 lb 12.8 oz) LMP 08/02/2005 SpO2 96% BMI 25.48 kg/m General Appearance: Well appearing, alert, in no acute distress, well-hydrated, well nourished.. Skin: Skin color, texture, turgor normal, no suspicious rashes or lesions. Head: Normocephalic, no masses, lesions, tenderness or abnormalities. Eyes: Anicteric sclera. Pupils are equally round and reactive to light. Extraocular movements are intact. . Ears: External ears normal, canals clear. Nose/Sinuses: Nares normal, septum midline, mucosa normal, no drainage or sinus tenderness. Neck: Supple, no adenopathy; thyroid symmetric, normal size, no bruits. Lungs: Lungs clear to auscultation. No wheezing, rhonchi, rales.. Heart: RRR without murmur, gallop, or rubs. No ectopy. Abdomen: Normal abdominal exam, Abdomen soft, non-tender. Bowel sounds normal. No masses, organomegaly. Extremities: No deformities, edema, skin discoloration, clubbing or cyanosis. Good capillary refill. . Health Maintenance List LUNG CANCER SCREENING Never done MAMMOGRAM due on 03/23/2021 COVID-19 VACCINE(4 - Booster for Pfizer series) due on 12/26/2021 ANNUAL PCP TEAM CHRONIC DISEASE VISIT due on 09/03/2022 BP CONTROLLED (<130/80) due on 09/03/2022 COLORECTAL CANCER SCREENING due on 10/22/2023 DIABETES SCREEN due on 09/03/2024 PNEUMOCOCCAL(3 - PPSV23 or PCV20) due on 2024 LIPID SCREEN due on 12/10/2025 DTAP,TDAP,TD(2 - Td or Tdap) due on 02/21/2026 INFLUENZA Completed HEPATITIS C SCREENING Completed HIV SCREENING Completed SHINGRIX VACCINE Completed PAP TESTING Discontinued HPV TESTING Discontinued Data reviewed Component Latest Ref Rng & Units 04/29/2021 09/03/2021 Protein, Total 6.3 - 8.0 g/dL 6.7 Albumin 3.9 - 4.9 g/dL 4.2 Calcium 8.5 - 10.2 mg/dL 8.9 Bilirubin, Total 0.2 - 1.3 mg/dL <0.2 (L) Alkaline Phosphatase 34 - 123 U/L 68 AST 13 - 35 U/L 17 Glucose 74 - 99 mg/dL 94 BUN 7 - 21 mg/dL 20 Creatinine 0.58 - 0.96 mg/dL 0.79 Sodium 136 - 144 mmol/L 139 Potassium 3.7 - 5.1 mmol/L 4.7 Chloride 97 - 105 mmol/L 105 CO2 22 - 30 mmol/L 24 Anion Gap 9 - 18 mmol/L 10 ALT 7 - 38 U/L 19 eGFR- >60 eGFR-All Other Races . >60 WBC 3.70 - 11.00 k/uL 8.83 RBC 3.90 - 5.20 m/uL 4.55 Hemoglobin 11.5 - 15.5 g/dL 13.9 Hematocrit 36.0 - 46.0 % 43.4 MCV 80.0 - 100.0 fL 95.4 MCH 26.0 - 34.0 pG 30.5 MCHC 30.5 - 36.0 g/dL 32.0 RDW-CV 11.5 - 15.0 % 11.8 Platelet Count 150 - 400 k/uL 302 MPV 9.0 - 12.7 fL 9.4 Absolute nRBC <0.01 k/uL <0.01 Iron 41 - 186 ug/dL 76 TIBC 232 - 386 ug/dL 279 Transferrin Saturation 15 - 57 % 27 Hemoglobin A1C 4.3 - 5.6 % 5.9 (H) Estimated Average Glucose mg/dL 123 Ferritin 14.7 - 205.1 ng/mL 49.2 ASSESSMENT/PLAN: 1. Annual physical exam - ICD9: V70.0, ICD10: Z00.00 (primary diagnosis) - Counseled on healthy diet and regular exercise - Calcium intake with supplements or by diet of 1000 mg/day for under 50, 8313-9985 mg/day for 50+ - Mammogram ordered - exam recommended once yearly - Follow up for annual exam in one year - COMP METABOLIC PANEL - LIPID PANEL, NONFASTING - HGB A1C 2. Recurrent major depressive disorder, in partial remission (HCC) - ICD9: 296.35, ICD10: F33.41 Uncontrolled. Increase wellbutrin XL to 300 mg daily. Call if not improving in 4-6 weeks. F/u with counseling. - BUPROPION XL 300 MG 24 HR TAB - CONSULT TO [facility] - DULOXETINE 60 MG CAPSULE,DELAYED RELEASE 3. Essential hypertension - ICD9: 401.9, ICD10: I10 - good control - Continue current medication(s) - Encouraged dietary sodium restriction/DASH diet - Recommended regular aerobic exercise. - Reviewed risks of HTN and principles of treatment - Goal of BP <140/90 4. Hyperlipidemia, mixed - ICD9: 272.2, ICD10: E78.2 - to be determined upon return of lab results - Continue current medication. - Encouraged following a low fat, low cholesterol diet. - Discussed the benefits of regular aerobic exercise and weight loss. 5. Gastroesophageal reflux disease, unspecified whether esophagitis present - ICD9: 530.81, ICD10: K21.9 - Continue treatment with Prilosec 20 mg QD 6. Prediabetes - ICD9: 790.29, ICD10: R73.03 Recheck A1c. Continue metformin and work on DM diet. - METFORMIN 500 MG TABLET - HGB A1C - HGB A1C - COMP METABOLIC PANEL 7. Tobacco use - ICD9: 305.1, ICD10: Z72.0 - Cessation encouraged. - Physiologic and physical aspects of tobacco addiction as well as strategies for quitting were discussed. - Counseling was given focusing on the harmful effects of this addiction especially given the patient's medical condition(s) which will be worsened because of the chemicals in tobacco. 8. Fibromyalgia - ICD9: 729.1, ICD10: M79.7 Controlled on current regimen. - DULOXETINE 60 MG CAPSULE,DELAYED RELEASE 9. Iron deficiency anemia, unspecified iron deficiency anemia type - ICD9: 280.9, ICD10: D50.9 Recheck levels. - CBC - IRON + TIBC - FERRITIN BLD 10. Screening mammogram for breast cancer - ICD9: V76.12, ICD10: Z12.31 - EDDY SCREENING 11. Need for COVID-19 vaccine - ICD9: V04.89, ICD10: Z23 - [employer] COVID-19 VACCINE, AGE 12+ YR ([facility]) Negrito Wilburn MD documented in this encounter [facility] 08-17-2016 History of Past i llness Narrative Problem Noted Date Diagnosed Date Resolved Date Alcohol dependence 08/17/2016 3 Overview: She is drinking 3 glasses of wine a day. Last Assessment & Plan: She now is considering going to alcohol anonymous Hypertriglyceridemia 08/31/2012 018 Last Assessment & Plan: Really off target she is on the fenofibrate but is in a bad situation Her partner and she are estranged and she was made to move out of the house Patient says she was all set up. Kidney stones 01/10/2012 08/17/2018 Last Assessment & Plan: No problems recently Bulimia 07/08/2009 08/17/2018 Acute gastritis without mention of hemorrhage 07/08/20 09 08/17/2018 CHEST PAIN ANTERIOR CHEST WALL 02/09/2006 08/17/2018 Pure hypercholesterolemia 06/09/2005 Last Assessment & Plan: Her lipids and tgs are highly elevated Other and unspecified alcoho l dependence, unspecified drinking behavior 03/15/2023 Overview: ETOH depend. Syn; hx addictive behaviors with narcotics. DPOA [facility] fills and often pays for pt's scripts. PMH - PAST MEDICAL HISTORY OF 08/17/2018 Overview: Kidney Stones History of alcohol dependence 03/15/2023 documented as of this encounter (statuses as of 04/24/2023) [facility] History of Past illness Narrative* Problem Noted Date Diagnosed Date Resolved Date Alcohol dependence 08/17/2016 Overview: She is drinking 3 glasses of wine a day. Last Assessment & Plan: She now is considering going to alcohol anonymous Hypertriglyceridemia 08/31/2012 018 Last Assessment & Plan: Really off target she is on the fenofibrate but is in a bad situation Her partner and she are estranged and she was made to move out of the house Patient says she was all set up. Kidney stones 01/10/2012 08/17/2018 Last Assessment & Plan: No problems recently Bulimia 07/08/2009 08/17/2018 Acute gastritis without mention of hemorrhage 07/08/20 09 08/17/2018 CHEST PAIN ANTERIOR CHEST WALL 02/09/2006 08/17/2018 Pure hypercholesterolemia 06/09/2005 Last Assessment & Plan: Her lipids and tgs are highly elevated Other and unspecified alcoho l dependence, unspecified drinking behavior 03/15/2023 Overview: ETOH depend. Syn; hx addictive behaviors with narcotics. DPO[facility] and often pays for pt's scripts. PMH - PAST MEDICAL HISTORY OF 08/17/2018 Overview: Kidney Stones History of alcohol dependence 03/15/2023 documented as of this encounter (statuses as of 06/14/2023) [facility] History of Past illness Narrative* Problem Noted Date Diagnosed Date Resolved Date Alcohol dependence 08/17/2016 Overview: She is drinking 3 glasses of wine a day. Last Assessment & Plan: She now is considering going to alcohol anonymous Hypertriglyceridemia 08/31/2012 018 Last Assessment & Plan: Really off target she is on the fenofibrate but is in a bad situation Her partner and she are estranged and she was made to move out of the house Patient says she was all set up. Kidney stones 01/10/2012 08/17/2018 Last Assessment & Plan: No problems recently Bulimia 07/08/2009 08/17/2018 Acute gastritis without mention of hemorrhage 07/08/20 09 08/17/2018 CHEST PAIN ANTERIOR CHEST WALL 02/09/2006 08/17/2018 Pure hypercholesterolemia 06/09/2005 Last Assessment & Plan: Her lipids and tgs are highly elevated Other and unspecified alcoho l dependence, unspecified drinking behavior 03/15/2023 Overview: ETOH depend. Syn; hx addictive behaviors with narcotics. DPO[facility] and often pays for pt's scripts. PMH - PAST MEDICAL HISTORY OF 08/17/2018 Overview: Kidney Stones History of alcohol dependence 03/15/2023 documented as of this encounter (statuses as of 06/15/2023) [facility] History of Past illness Narrative* Problem Noted Date Diagnosed Date Resolved Date Alcohol dependence 08/17/2016 Overview: She is drinking 3 glasses of wine a day. Last Assessment & Plan: She now is considering going to alcohol anonymous Hypertriglyceridemia 08/31/2012 018 Last Assessment & Plan: Really off target she is on the fenofibrate but is in a bad situation Her partner and she are estranged and she was made to move out of the house Patient says she was all set up. Kidney stones 01/10/2012 08/17/2018 Last Assessment & Plan: No problems recently Bulimia 07/08/2009 08/17/2018 Acute gastritis without mention of hemorrhage 07/08/20 09 08/17/2018 CHEST PAIN ANTERIOR CHEST WALL 02/09/2006 08/17/2018 Pure hypercholesterolemia 06/09/2005 Last Assessment & Plan: Her lipids and tgs are highly elevated Other and unspecified alcoho l dependence, unspecified drinking behavior 03/15/2023 Overview: ETOH depend. Syn; hx addictive behaviors with narcotics. DPO[facility] and often pays for pt's scripts. PMH - PAST MEDICAL HISTORY OF 08/17/2018 Overview: Kidney Stones History of alcohol dependence 03/15/2023 documented as of this encounter (statuses as of 07/23/2023) [facility] History of Past illness Narrative* Problem Noted Date Diagnosed Date Resolved Date Alcohol dependence 08/17/2016 Overview: She is drinking 3 glasses of wine a day. Last Assessment & Plan: She now is considering going to alcohol anonymous Hypertriglyceridemia 08/31/2012 018 Last Assessment & Plan: Really off target she is on the fenofibrate but is in a bad situation Her partner and she are estranged and she was made to move out of the house Patient says she was all set up. Kidney stones 01/10/2012 08/17/2018 Last Assessment & Plan: No problems recently Bulimia 07/08/2009 08/17/2018 Acute gastritis without mention of hemorrhage 07/08/20 09 08/17/2018 CHEST PAIN ANTERIOR CHEST WALL 02/09/2006 08/17/2018 Pure hypercholesterolemia 06/09/2005 Last Assessment & Plan: Her lipids and tgs are highly elevated Other and unspecified alcoho l dependence, unspecified drinking behavior 03/15/2023 Overview: ETOH depend. Syn; hx addictive behaviors with narcotics. DPO[facility] and often pays for pt's scripts. PMH - PAST MEDICAL HISTORY OF 08/17/2018 Overview: Kidney Stones History of alcohol dependence 03/15/2023 documented as of this encounter (statuses as of 07/23/2023) [facility] History of Past illness Narrative* Problem Noted Date Diagnosed Date Resolved Date Alcohol dependence 08/17/2016 Overview: She is drinking 3 glasses of wine a day. Last Assessment & Plan: She now is considering going to alcohol anonymous Hypertriglyceridemia 08/31/2012 018 Last Assessment & Plan: Really off target she is on the fenofibrate but is in a bad situation Her partner and she are estranged and she was made to move out of the house Patient says she was all set up. Kidney stones 01/10/2012 08/17/2018 Last Assessment & Plan: No problems recently Bulimia 07/08/2009 08/17/2018 Acute gastritis without mention of hemorrhage 07/08/20 09 08/17/2018 CHEST PAIN ANTERIOR CHEST WALL 02/09/2006 08/17/2018 Pure hypercholesterolemia 06/09/2005 Last Assessment & Plan: Her lipids and tgs are highly elevated Other and unspecified alcoho l dependence, unspecified drinking behavior 03/15/2023 Overview: ETOH depend. Syn; hx addictive behaviors with narcotics. DPOA [facility] and often pays for pt's scripts. PMH - PAST MEDICAL HISTORY OF 08/17/2018 Overview: Kidney Stones History of alcohol dependence 03/15/2023 documented as of this encounter (statuses as of 08/08/2023) [facility] History of Past illness Narrative* Problem Noted Date Diagnosed Date Resolved Date Alcohol dependence 08/17/2016 3 Overview: She is drinking 3 glasses of wine a day. Last Assessment & Plan: She now is considering going to alcohol anonymous Hypertriglyceridemia 08/31/2012 018 Last Assessment & Plan: Really off target she is on the fenofibrate but is in a bad situation Her partner and she are estranged and she was made to move out of the house Patient says she was all set up. Kidney stones 01/10/2012 08/17/2018 Last Assessment & Plan: No problems recently Bulimia 07/08/2009 08/17/2018 Acute gastritis without mention of hemorrhage 07/08/20 09 08/17/2018 CHEST PAIN ANTERIOR CHEST WALL 02/09/2006 08/17/2018 Pure hypercholesterolemia 06/09/2005 Last Assessment & Plan: Her lipids and tgs are highly elevated Other and unspecified alcoho l dependence, unspecified drinking behavior 03/15/2023 Overview: ETOH depend. Syn; hx addictive behaviors with narcotics. DPOA [facility] and often pays for pt's scripts. PMH - PAST MEDICAL HISTORY OF 08/17/2018 Overview: Kidney Stones History of alcohol dependence 03/15/2023 documented as of this encounter (statuses as of 08/29/2023) [facility] History of Past illness Narrative* Problem Noted Date Diagnosed Date Resolved Date Alcohol dependence 08/17/2016 Overview: She is drinking 3 glasses of wine a day. Last Assessment & Plan: She now is considering going to alcohol anonymous Hypertriglyceridemia 08/31/2012 018 Last Assessment & Plan: Really off target she is on the fenofibrate but is in a bad situation Her partner and she are estranged and she was made to move out of the house Patient says she was all set up. Kidney stones 01/10/2012 08/17/2018 Last Assessment & Plan: No problems recently Bulimia 07/08/2009 08/17/2018 Acute gastritis without mention of hemorrhage 07/08/20 09 08/17/2018 CHEST PAIN ANTERIOR CHEST WALL 02/09/2006 08/17/2018 Pure hypercholesterolemia 06/09/2005 Last Assessment & Plan: Her lipids and tgs are highly elevated Other and unspecified alcoho l dependence, unspecified drinking behavior 03/15/2023 Overview: ETOH depend. Syn; hx addictive behaviors with narcotics. DPOA [facility] and often pays for pt's scripts. PMH - PAST MEDICAL HISTORY OF 08/17/2018 Overview: Kidney Stones History of alcohol dependence 03/15/2023 documented as of this encounter (statuses as of 10/20/2023) [facility] History of Past illness Narrative* Problem Noted Date Diagnosed Date Resolved Date Alcohol dependence 08/17/2016 3 Overview: She is drinking 3 glasses of wine a day. Last Assessment & Plan: She now is considering going to alcohol anonymous Hypertriglyceridemia 08/31/2012 018 Last Assessment & Plan: Really off target she is on the fenofibrate but is in a bad situation Her partner and she are estranged and she was made to move out of the house Patient says she was all set up. Kidney stones 01/10/2012 08/17/2018 Last Assessment & Plan: No problems recently Bulimia 07/08/2009 08/17/2018 Acute gastritis without mention of hemorrhage 07/08/20 09 08/17/2018 CHEST PAIN ANTERIOR CHEST WALL 02/09/2006 08/17/2018 Pure hypercholesterolemia 06/09/2005 Last Assessment & Plan: Her lipids and tgs are highly elevated Other and unspecified alcoho l dependence, unspecified drinking behavior 03/15/2023 Overview: ETOH depend. Syn; hx addictive behaviors with narcotics. DPOA [facility] and often pays for pt's scripts. PMH - PAST MEDICAL HISTORY OF 08/17/2018 Overview: Kidney Stones History of alcohol dependence 03/15/2023 documented as of this encounter (statuses as of 10/20/2023) [facility] History of Past illness Narrative* Problem Noted Date Diagnosed Date Resolved Date Alcohol dependence 08/17/2016 3 Overview: She is drinking 3 glasses of wine a day. Last Assessment & Plan: She now is considering going to alcohol anonymous Hypertriglyceridemia 08/31/2012 018 Last Assessment & Plan: Really off target she is on the fenofibrate but is in a bad situation Her partner and she are estranged and she was made to move out of the house Patient says she was all set up. Kidney stones 01/10/2012 08/17/2018 Last Assessment & Plan: No problems recently Bulimia 07/08/2009 08/17/2018 Acute gastritis without mention of hemorrhage 07/08/2008/17/2018 CHEST PAIN ANTERIOR CHEST WALL 02/09/2006 08/17/2018 Pure hypercholesterolemia 06/09/2005 Last Assessment & Plan: Her lipids and tgs are highly elevated Other and unspecified alcoho l dependence, unspecified drinking behavior 03/15/2023 Overview: ETOH depend. Syn; hx addictive behaviors with narcotics. DPOA [facility] and often pays for pt's scripts. PMH - PAST MEDICAL HISTORY OF 08/17/2018 Overview: Kidney Stones History of alcohol dependence 03/15/2023 documented as of this encounter (statuses as of 10/27/2023) [facility] History of Past illness Narrative* Problem Noted Date Diagnosed Date Resolved Date Alcohol dependence 08/17/2016 Overview: She is drinking 3 glasses of wine a day. Last Assessment & Plan: She now is considering going to alcohol anonymous Hypertriglyceridemia 08/31/2012 018 Last Assessment & Plan: Really off target she is on the fenofibrate but is in a bad situation Her partner and she are estranged and she was made to move out of the house Patient says she was all set up. Kidney stones 01/10/2012 08/17/2018 Last Assessment & Plan: No problems recently Bulimia 07/08/2009 08/17/2018 Acute gastritis without mention of hemorrhage 07/08/2008/17/2018 CHEST PAIN ANTERIOR CHEST WALL 02/09/2006 08/17/2018 Pure hypercholesterolemia 06/09/2005 Last Assessment & Plan: Her lipids and tgs are highly elevated Other and unspecified alcoho l dependence, unspecified drinking behavior 03/15/2023 Overview: ETOH depend. Syn; hx addictive behaviors with narcotics. DPOA [facility] and often pays for pt's scripts. PMH - PAST MEDICAL HISTORY OF 08/17/2018 Overview: Kidney Stones History of alcohol dependence 03/15/2023 documented as of this encounter (statuses as of 10/27/2023) [facility] History of Past illness Narrative* Problem Noted Date Diagnosed Date Resolved Date Alcohol dependence 08/17/2016 Overview: She is drinking 3 glasses of wine a day. Last Assessment & Plan: She now is considering going to alcohol anonymous Hypertriglyceridemia 08/31/2012 018 Last Assessment & Plan: Really off target she is on the fenofibrate but is in a bad situation Her partner and she are estranged and she was made to move out of the house Patient says she was all set up. Kidney stones 01/10/2012 08/17/2018 Last Assessment & Plan: No problems recently Bulimia 07/08/2009 08/17/2018 Acute gastritis without mention of hemorrhage 07/08/20 09 08/17/2018 CHEST PAIN ANTERIOR CHEST WALL 02/09/2006 08/17/2018 Pure hypercholesterolemia 06/09/2005 Last Assessment & Plan: Her lipids and tgs are highly elevated Other and unspecified alcoho l dependence, unspecified drinking behavior 03/15/2023 Overview: ETOH depend. Syn; hx addictive behaviors with narcotics. DPOA [facility] fills and often pays for pt's scripts. PMH - PAST MEDICAL HISTORY OF 08/17/2018 Overview: Kidney Stones History of alcohol dependence 03/15/2023 documented as of this encounter (statuses as of 10/30/2023) [facility] History of Past illness Narrative* Problem Noted Date Diagnosed Date Resolved Date Alcohol dependence 08/17/2016 3 Overview: She is drinking 3 glasses of wine a day. Last Assessment & Plan: She now is considering going to alcohol anonymous Hypertriglyceridemia 08/31/2012 018 Last Assessment & Plan: Really off target she is on the fenofibrate but is in a bad situation Her partner and she are estranged and she was made to move out of the house Patient says she was all set up. Kidney stones 01/10/2012 08/17/2018 Last Assessment & Plan: No problems recently Bulimia 07/08/2009 08/17/2018 Acute gastritis without mention of hemorrhage 07/08/20 09 08/17/2018 CHEST PAIN ANTERIOR CHEST WALL 02/09/2006 08/17/2018 Pure hypercholesterolemia 06/09/2005 Last Assessment & Plan: Her lipids and tgs are highly elevated Other and unspecified alcoho l dependence, unspecified drinking behavior 03/15/2023 Overview: ETOH depend. Syn; hx addictive behaviors with narcotics. DPOA [facility] and often pays for pt's scripts. PMH - PAST MEDICAL HISTORY OF 08/17/2018 Overview: Kidney Stones History of alcohol dependence 03/15/2023 documented as of this encounter (statuses as of 11/09/2023) [facility] History of Past illness Narrative* Problem Noted Date Diagnosed Date Resolved Date Alcohol dependence 08/17/2016 3 Overview: She is drinking 3 glasses of wine a day. Last Assessment & Plan: She now is considering going to alcohol anonymous Hypertriglyceridemia 08/31/2012 018 Last Assessment & Plan: Really off target she is on the fenofibrate but is in a bad situation Her partner and she are estranged and she was made to move out of the house Patient says she was all set up. Kidney stones 01/10/2012 08/17/2018 Last Assessment & Plan: No problems recently Bulimia 07/08/2009 08/17/2018 Acute gastritis without mention of hemorrhage 07/08/20 09 08/17/2018 CHEST PAIN ANTERIOR CHEST WALL 02/09/2006 08/17/2018 Pure hypercholesterolemia 06/09/2005 Last Assessment & Plan: Her lipids and tgs are highly elevated Other and unspecified alcoho l dependence, unspecified drinking behavior 03/15/2023 Overview: ETOH depend. Syn; hx addictive behaviors with narcotics. DPOA [facility] and often pays for pt's scripts. PMH - PAST MEDICAL HISTORY OF 08/17/2018 Overview: Kidney Stones History of alcohol dependence 03/15/2023 documented as of this encounter (statuses as of 11/09/2023) [facility] History of Past illness Narrative* Problem Noted Date Diagnosed Date Resolved Date Alcohol dependence 08/17/2016 3 Overview: She is drinking 3 glasses of wine a day. Last Assessment & Plan: She now is considering going to alcohol anonymous Hypertriglyceridemia 08/31/2012 018 Last Assessment & Plan: Really off target she is on the fenofibrate but is in a bad situation Her partner and she are estranged and she was made to move out of the house Patient says she was all set up. Kidney stones 01/10/2012 08/17/2018 Last Assessment & Plan: No problems recently Bulimia 07/08/2009 08/17/2018 Acute gastritis without mention of hemorrhage 07/08/20 09 08/17/2018 CHEST PAIN ANTERIOR CHEST WALL 02/09/2006 08/17/2018 Pure hypercholesterolemia 06/09/2005 Last Assessment & Plan: Her lipids and tgs are highly elevated Other and unspecified alcoho l dependence, unspecified drinking behavior 03/15/2023 Overview: ETOH depend. Syn; hx addictive behaviors with narcotics. DPOA [facility] and often pays for pt's scripts. PMH - PAST MEDICAL HISTORY OF 08/17/2018 Overview: Kidney Stones History of alcohol dependence 03/15/2023 documented as of this encounter (statuses as of 11/10/2023) [facility] History of Past illness Narrative* Problem Noted Date Diagnosed Date Resolved Date Alcohol dependence 08/17/2016 Overview: She is drinking 3 glasses of wine a day. Last Assessment & Plan: She now is considering going to alcohol anonymous Hypertriglyceridemia 08/31/2012 018 Last Assessment & Plan: Really off target she is on the fenofibrate but is in a bad situation Her partner and she are estranged and she was made to move out of the house Patient says she was all set up. Kidney stones 01/10/2012 08/17/2018 Last Assessment & Plan: No problems recently Bulimia 07/08/2009 08/17/2018 Acute gastritis without mention of hemorrhage 07/08/20 09 08/17/2018 CHEST PAIN ANTERIOR CHEST WALL 02/09/2006 08/17/2018 Pure hypercholesterolemia 06/09/2005 Last Assessment & Plan: Her lipids and tgs are highly elevated Other and unspecified alcoho l dependence, unspecified drinking behavior 03/15/2023 Overview: ETOH depend. Syn; hx addictive behaviors with narcotics. DPOA [facility] fills and often pays for pt's scripts. PMH - PAST MEDICAL HISTORY OF 08/17/2018 Overview: Kidney Stones History of alcohol dependence 03/15/2023 documented as of this encounter (statuses as of 11/15/2023) [facility] History of Past illness Narrative* Problem Noted Date Diagnosed Date Resolved Date Alcohol dependence 08/17/2016 Overview: She is drinking 3 glasses of wine a day. Last Assessment & Plan: She now is considering going to alcohol anonymous Hypertriglyceridemia 08/31/2012 018 Last Assessment & Plan: Really off target she is on the fenofibrate but is in a bad situation Her partner and she are estranged and she was made to move out of the house Patient says she was all set up. Kidney stones 01/10/2012 08/17/2018 Last Assessment & Plan: No problems recently Bulimia 07/08/2009 08/17/2018 Acute gastritis without mention of hemorrhage 07/08/20 09 08/17/2018 CHEST PAIN ANTERIOR CHEST WALL 02/09/2006 08/17/2018 Pure hypercholesterolemia 06/09/2005 Last Assessment & Plan: Her lipids and tgs are highly elevated Other and unspecified alcoho l dependence, unspecified drinking behavior 03/15/2023 Overview: ETOH depend. Syn; hx addictive behaviors with narcotics. DPOA [facility] fills and often pays for pt's scripts. PMH - PAST MEDICAL HISTORY OF 08/17/2018 Overview: Kidney Stones History of alcohol dependence 03/15/2023 documented as of this encounter (statuses as of 11/17/2023) [facility] History of Past illness Narrative* Problem Noted Date Diagnosed Date Resolved Date Alcohol dependence 08/17/2016 Overview: She is drinking 3 glasses of wine a day. Last Assessment & Plan: She now is considering going to alcohol anonymous Hypertriglyceridemia 08/31/2012 018 Last Assessment & Plan: Really off target she is on the fenofibrate but is in a bad situation Her partner and she are estranged and she was made to move out of the house Patient says she was all set up. Kidney stones 01/10/2012 08/17/2018 Last Assessment & Plan: No problems recently Bulimia 07/08/2009 08/17/2018 Acute gastritis without mention of hemorrhage 07/08/20 09 08/17/2018 CHEST PAIN ANTERIOR CHEST WALL 02/09/2006 08/17/2018 Pure hypercholesterolemia 06/09/2005 Last Assessment & Plan: Her lipids and tgs are highly elevated Other and unspecified alcoho l dependence, unspecified drinking behavior 03/15/2023 Overview: ETOH depend. Syn; hx addictive behaviors with narcotics. DPOA [facility] and often pays for pt's scripts. PMH - PAST MEDICAL HISTORY OF 08/17/2018 Overview: Kidney Stones History of alcohol dependence 03/15/2023 documented as of this encounter (statuses as of 11/19/2023) [facility] History of Past illness Narrative* Problem Noted Date Diagnosed Date Resolved Date Alcohol dependence 08/17/2016 Overview: She is drinking 3 glasses of wine a day. Last Assessment & Plan: She now is considering going to alcohol anonymous Hypertriglyceridemia 08/31/2012 018 Last Assessment & Plan: Really off target she is on the fenofibrate but is in a bad situation Her partner and she are estranged and she was made to move out of the house Patient says she was all set up. Kidney stones 01/10/2012 08/17/2018 Last Assessment & Plan: No problems recently Bulimia 07/08/2009 08/17/2018 Acute gastritis without mention of hemorrhage 07/08/20 09 08/17/2018 CHEST PAIN ANTERIOR CHEST WALL 02/09/2006 08/17/2018 Pure hypercholesterolemia 06/09/2005 Last Assessment & Plan: Her lipids and tgs are highly elevated Other and unspecified alcoho l dependence, unspecified drinking behavior 03/15/2023 Overview: ETOH depend. Syn; hx addictive behaviors with narcotics. DPOA [facility] and often pays for pt's scripts. PMH - PAST MEDICAL HISTORY OF 08/17/2018 Overview: Kidney Stones History of alcohol dependence 03/15/2023 documented as of this encounter (statuses as of 11/24/2023) [facility] History of Past illness Narrative* Problem Noted Date Diagnosed Date Resolved Date Alcohol dependence 08/17/2016 Overview: She is drinking 3 glasses of wine a day. Last Assessment & Plan: She now is considering going to alcohol anonymous Hypertriglyceridemia 08/31/2012 018 Last Assessment & Plan: Really off target she is on the fenofibrate but is in a bad situation Her partner and she are estranged and she was made to move out of the house Patient says she was all set up. Kidney stones 01/10/2012 08/17/2018 Last Assessment & Plan: No problems recently Bulimia 07/08/2009 08/17/2018 Acute gastritis without mention of hemorrhage 07/08/20 09 08/17/2018 CHEST PAIN ANTERIOR CHEST WALL 02/09/2006 08/17/2018 Pure hypercholesterolemia 06/09/2005 Last Assessment & Plan: Her lipids and tgs are highly elevated Other and unspecified alcoho l dependence, unspecified drinking behavior 03/15/2023 Overview: ETOH depend. Syn; hx addictive behaviors with narcotics. DPOA [facility] fills and often pays for pt's scripts. PMH - PAST MEDICAL HISTORY OF 08/17/2018 Overview: Kidney Stones History of alcohol dependence 03/15/2023 documented as of this encounter (statuses as of 12/01/2023) [facility] History of Past illness Narrative* Problem Noted Date Diagnosed Date Resolved Date Alcohol dependence 08/17/2016 3 Overview: She is drinking 3 glasses of wine a day. Last Assessment & Plan: She now is considering going to alcohol anonymous Hypertriglyceridemia 08/31/2012 018 Last Assessment & Plan: Really off target she is on the fenofibrate but is in a bad situation Her partner and she are estranged and she was made to move out of the house Patient says she was all set up. Kidney stones 01/10/2012 08/17/2018 Last Assessment & Plan: No problems recently Bulimia 07/08/2009 08/17/2018 Acute gastritis without mention of hemorrhage 07/08/20 09 08/17/2018 CHEST PAIN ANTERIOR CHEST WALL 02/09/2006 08/17/2018 Pure hypercholesterolemia 06/09/2005 Last Assessment & Plan: Her lipids and tgs are highly elevated Other and unspecified alcoho l dependence, unspecified drinking behavior 03/15/2023 Overview: ETOH depend. Syn; hx addictive behaviors with narcotics. DPOA [facility] and often pays for pt's scripts. PMH - PAST MEDICAL HISTORY OF 08/17/2018 Overview: Kidney Stones History of alcohol dependence 03/15/2023 documented as of this encounter (statuses as of 12/11/2023) [facility] History of Past illness Narrative* Problem Noted Date Diagnosed Date Resolved Date Alcohol dependence 08/17/2016 3 Overview: She is drinking 3 glasses of wine a day. Last Assessment & Plan: She now is considering going to alcohol anonymous Hypertriglyceridemia 08/31/2012 018 Last Assessment & Plan: Really off target she is on the fenofibrate but is in a bad situation Her partner and she are estranged and she was made to move out of the house Patient says she was all set up. Kidney stones 01/10/2012 08/17/2018 Last Assessment & Plan: No problems recently Bulimia 07/08/2009 08/17/2018 Acute gastritis without mention of hemorrhage 07/08/20 09 08/17/2018 CHEST PAIN ANTERIOR CHEST WALL 02/09/2006 08/17/2018 Pure hypercholesterolemia 06/09/2005 Last Assessment & Plan: Her lipids and tgs are highly elevated Other and unspecified alcoho l dependence, unspecified drinking behavior 03/15/2023 Overview: ETOH depend. Syn; hx addictive behaviors with narcotics. DPOA [facility] and often pays for pt's scripts. PMH - PAST MEDICAL HISTORY OF 08/17/2018 Overview: Kidney Stones History of alcohol dependence 03/15/2023 documented as of this encounter (statuses as of 12/11/2023) [facility] History of Past illness Narrative* Problem Noted Date Diagnosed Date Resolved Date Alcohol dependence 08/17/2016 3 Overview: She is drinking 3 glasses of wine a day. Last Assessment & Plan: She now is considering going to alcohol anonymous Hypertriglyceridemia 08/31/2012 018 Last Assessment & Plan: Really off target she is on the fenofibrate but is in a bad situation Her partner and she are estranged and she was made to move out of the house Patient says she was all set up. Kidney stones 01/10/2012 08/17/2018 Last Assessment & Plan: No problems recently Bulimia 07/08/2009 08/17/2018 Acute gastritis without mention of hemorrhage 07/08/20 09 08/17/2018 CHEST PAIN ANTERIOR CHEST WALL 02/09/2006 08/17/2018 Pure hypercholesterolemia 06/09/2005 Last Assessment & Plan: Her lipids and tgs are highly elevated Other and unspecified alcoho l dependence, unspecified drinking behavior 03/15/2023 Overview: ETOH depend. Syn; hx addictive behaviors with narcotics. DPOA [facility] fills and often pays for pt's scripts. PMH - PAST MEDICAL HISTORY OF 08/17/2018 Overview: Kidney Stones History of alcohol dependence 03/15/2023 documented as of this encounter (statuses as of 12/12/2023) [facility] History of Past illness Narrative* Problem Noted Date Resolved Date Hypertriglyceridemia 08/31/2012 08/17/2018 Last Assessment & Plan: Really off target she is on the fenofibrate but is in a bad situation Her partner and she are estranged and she was made to move out of the house Patient says she was all set up. Kidney stones 01/10/2012 08/17/2018 Last Assessment & Plan: No problems recently Bulimia 07/08/2009 08/17/2018 Acute gastritis without mention of hemorrhage 08/17/2018 CHEST PAIN ANTERIOR CHEST WALL 02/09/2006 1 10/17/2017 Pure hypercholesterolemia 06/09/20052017 Last Assessment & Plan: Her lipids and tgs are highly elevated PMH - PAST MEDICAL HISTORY OF Overview: Kidney Stones documented as of this encounter (statuses as of 03/07/2022) [facility] History of Past illness Narrative* Problem Noted Date Resolved Date Hypertriglyceridemia 08/31/2012 08/17/2018 Last Assessment & Plan: Really off target she is on the fenofibrate but is in a bad situation Her partner and she are estranged and she was made to move out of the house Patient says she was all set up. Kidney stones 01/10/2012 08/17/2018 Last Assessment & Plan: No problems recently Bulimia 07/08/2009 08/17/2018 Acute gastritis without mention of hemorrhage 08/17/2018 CHEST PAIN ANTERIOR CHEST WALL 02/09/2006 1 10/17/2017 Pure hypercholesterolemia 06/09/20052017 Last Assessment & Plan: Her lipids and tgs are highly elevated PMH - PAST MEDICAL HISTORY OF Overview: Kidney Stones documented as of this encounter (statuses as of 03/08/2022) [facility] History of Past illness Narrative* Problem Noted Date Resolved Date Hypertriglyceridemia 08/31/2012 08/17/2018 Last Assessment & Plan: Really off target she is on the fenofibrate but is in a bad situation Her partner and she are estranged and she was made to move out of the house Patient says she was all set up. Kidney stones 01/10/2012 08/17/2018 Last Assessment & Plan: No problems recently Bulimia 07/08/2009 08/17/2018 Acute gastritis without mention of hemorrhage 08/17/2018 CHEST PAIN ANTERIOR CHEST WALL 02/09/2006 1 10/17/2017 Pure hypercholesterolemia 06/09/20052017 Last Assessment & Plan: Her lipids and tgs are highly elevated PMH - PAST MEDICAL HISTORY OF Overview: Kidney Stones documented as of this encounter (statuses as of 03/10/2022) [facility] History of Past illness Narrative* Problem Noted Date Resolved Date Hypertriglyceridemia 08/31/2012 08/17/2018 Last Assessment & Plan: Really off target she is on the fenofibrate but is in a bad situation Her partner and she are estranged and she was made to move out of the house Patient says she was all set up. Kidney stones 01/10/2012 08/17/2018 Last Assessment & Plan: No problems recently Bulimia 07/08/2009 08/17/2018 Acute gastritis without mention of hemorrhage 08/17/2018 CHEST PAIN ANTERIOR CHEST WALL 02/09/2006 1 10/17/2017 Pure hypercholesterolemia 06/09/20052017 Last Assessment & Plan: Her lipids and tgs are highly elevated PMH - PAST MEDICAL HISTORY OF Overview: Kidney Stones documented as of this encounter (statuses as of 03/14/2022) [facility] History of Past illness Narrative* Problem Noted Date Resolved Date Hypertriglyceridemia 08/31/2012 08/17/2018 Last Assessment & Plan: Really off target she is on the fenofibrate but is in a bad situation Her partner and she are estranged and she was made to move out of the house Patient says she was all set up. Kidney stones 01/10/2012 08/17/2018 Last Assessment & Plan: No problems recently Bulimia 07/08/2009 08/17/2018 Acute gastritis without mention of hemorrhage 08/17/2018 CHEST PAIN ANTERIOR CHEST WALL 02/09/2006 1 10/17/2017 Pure hypercholesterolemia 06/09/20052017 Last Assessment & Plan: Her lipids and tgs are highly elevated PMH - PAST MEDICAL HISTORY OF Overview: Kidney Stones documented as of this encounter (statuses as of 03/15/2022) [facility] History of Past illness Narrative* Problem Noted Date Resolved Date Hypertriglyceridemia 08/31/2012 08/17/2018 Last Assessment & Plan: Really off target she is on the fenofibrate but is in a bad situation Her partner and she are estranged and she was made to move out of the house Patient says she was all set up. Kidney stones 01/10/2012 08/17/2018 Last Assessment & Plan: No problems recently Bulimia 07/08/2009 08/17/2018 Acute gastritis without mention of hemorrhage 08/17/2018 CHEST PAIN ANTERIOR CHEST WALL 02/09/2006 1 10/17/2017 Pure hypercholesterolemia 06/09/20052017 Last Assessment & Plan: Her lipids and tgs are highly elevated PMH - PAST MEDICAL HISTORY OF Overview: Kidney Stones documented as of this encounter (statuses as of 03/15/2022) [facility] History of Past illness Narrative* Problem Noted Date Resolved Date Hypertriglyceridemia 08/31/2012 08/17/2018 Last Assessment & Plan: Really off target she is on the fenofibrate but is in a bad situation Her partner and she are estranged and she was made to move out of the house Patient says she was all set up. Kidney stones 01/10/2012 08/17/2018 Last Assessment & Plan: No problems recently Bulimia 07/08/2009 08/17/2018 Acute gastritis without mention of hemorrhage 08/17/2018 CHEST PAIN ANTERIOR CHEST WALL 02/09/2006 1 10/17/2017 Pure hypercholesterolemia 06/09/20052017 Last Assessment & Plan: Her lipids and tgs are highly elevated PMH - PAST MEDICAL HISTORY OF Overview: Kidney Stones documented as of this encounter (statuses as of 03/16/2022) [facility] History of Past illness Narrative* Problem Noted Date Resolved Date Hypertriglyceridemia 08/31/2012 08/17/2018 Last Assessment & Plan: Really off target she is on the fenofibrate but is in a bad situation Her partner and she are estranged and she was made to move out of the house Patient says she was all set up. Kidney stones 01/10/2012 08/17/2018 Last Assessment & Plan: No problems recently Bulimia 07/08/2009 08/17/2018 Acute gastritis without mention of hemorrhage 08/17/2018 CHEST PAIN ANTERIOR CHEST WALL 02/09/2006 1 10/17/2017 Pure hypercholesterolemia 06/09/20052017 Last Assessment & Plan: Her lipids and tgs are highly elevated PMH - PAST MEDICAL HISTORY OF Overview: Kidney Stones documented as of this encounter (statuses as of 03/29/2022) [facility] History of Past illness Narrative* Problem Noted Date Resolved Date Hypertriglyceridemia 08/31/2012 08/17/2018 Last Assessment & Plan: Really off target she is on the fenofibrate but is in a bad situation Her partner and she are estranged and she was made to move out of the house Patient says she was all set up. Kidney stones 01/10/2012 08/17/2018 Last Assessment & Plan: No problems recently Bulimia 07/08/2009 08/17/2018 Acute gastritis without mention of hemorrhage 08/17/2018 CHEST PAIN ANTERIOR CHEST WALL 02/09/2006 1 10/17/2017 Pure hypercholesterolemia 06/09/20052017 Last Assessment & Plan: Her lipids and tgs are highly elevated PMH - PAST MEDICAL HISTORY OF Overview: Kidney Stones documented as of this encounter (statuses as of 05/16/2022) [facility] History of Past illness Narrative* Problem Noted Date Resolved Date Hypertriglyceridemia 08/31/2012 08/17/2018 Last Assessment & Plan: Really off target she is on the fenofibrate but is in a bad situation Her partner and she are estranged and she was made to move out of the house Patient says she was all set up. Kidney stones 01/10/2012 08/17/2018 Last Assessment & Plan: No problems recently Bulimia 07/08/2009 08/17/2018 Acute gastritis without mention of hemorrhage 08/17/2018 CHEST PAIN ANTERIOR CHEST WALL 02/09/2006 1 10/17/2017 Pure hypercholesterolemia 06/09/20052017 Last Assessment & Plan: Her lipids and tgs are highly elevated PMH - PAST MEDICAL HISTORY OF Overview: Kidney Stones documented as of this encounter (statuses as of 05/19/2022) [facility] History of Past illness Narrative* Problem Noted Date Resolved Date Hypertriglyceridemia 08/31/2012 08/17/2018 Last Assessment & Plan: Really off target she is on the fenofibrate but is in a bad situation Her partner and she are estranged and she was made to move out of the house Patient says she was all set up. Kidney stones 01/10/2012 08/17/2018 Last Assessment & Plan: No problems recently Bulimia 07/08/2009 08/17/2018 Acute gastritis without mention of hemorrhage 08/17/2018 CHEST PAIN ANTERIOR CHEST WALL 02/09/2006 1 10/17/2017 Pure hypercholesterolemia 06/09/20052017 Last Assessment & Plan: Her lipids and tgs are highly elevated PMH - PAST MEDICAL HISTORY OF Overview: Kidney Stones documented as of this encounter (statuses as of 05/21/2022) [facility] History of Past illness Narrative* Problem Noted Date Resolved Date Hypertriglyceridemia 08/31/2012 08/17/2018 Last Assessment & Plan: Really off target she is on the fenofibrate but is in a bad situation Her partner and she are estranged and she was made to move out of the house Patient says she was all set up. Kidney stones 01/10/2012 08/17/2018 Last Assessment & Plan: No problems recently Bulimia 07/08/2009 08/17/2018 Acute gastritis without mention of hemorrhage 08/17/2018 CHEST PAIN ANTERIOR CHEST WALL 02/09/2006 1 10/17/2017 Pure hypercholesterolemia 06/09/20052017 Last Assessment & Plan: Her lipids and tgs are highly elevated PMH - PAST MEDICAL HISTORY OF Overview: Kidney Stones documented as of this encounter (statuses as of 06/03/2022) [facility] History of Past illness Narrative* Problem Noted Date Resolved Date Hypertriglyceridemia 08/31/2012 08/17/2018 Last Assessment & Plan: Really off target she is on the fenofibrate but is in a bad situation Her partner and she are estranged and she was made to move out of the house Patient says she was all set up. Kidney stones 01/10/2012 08/17/2018 Last Assessment & Plan: No problems recently Bulimia 07/08/2009 08/17/2018 Acute gastritis without mention of hemorrhage 08/17/2018 CHEST PAIN ANTERIOR CHEST WALL 02/09/200610/17/2017 Pure hypercholesterolemia 06/09/20052017 Last Assessment & Plan: Her lipids and tgs are highly elevated PMH - PAST MEDICAL HISTORY OF Overview: Kidney Stones documented as of this encounter (statuses as of 06/20/2022) [facility] History of Past illness Narrative* Problem Noted Date Resolved Date Hypertriglyceridemia 08/31/2012 08/17/2018 Last Assessment & Plan: Really off target she is on the fenofibrate but is in a bad situation Her partner and she are estranged and she was made to move out of the house Patient says she was all set up. Kidney stones 01/10/2012 08/17/2018 Last Assessment & Plan: No problems recently Bulimia 07/08/2009 08/17/2018 Acute gastritis without mention of hemorrhage 08/17/2018 CHEST PAIN ANTERIOR CHEST WALL 02/09/2006 1 10/17/2017 Pure hypercholesterolemia 06/09/20052017 Last Assessment & Plan: Her lipids and tgs are highly elevated PMH - PAST MEDICAL HISTORY OF Overview: Kidney Stones documented as of this encounter (statuses as of 06/22/2022) [facility] History of Past illness Narrative* Problem Noted Date Resolved Date Hypertriglyceridemia 08/31/2012 08/17/2018 Last Assessment & Plan: Really off target she is on the fenofibrate but is in a bad situation Her partner and she are estranged and she was made to move out of the house Patient says she was all set up. Kidney stones 01/10/2012 08/17/2018 Last Assessment & Plan: No problems recently Bulimia 07/08/2009 08/17/2018 Acute gastritis without mention of hemorrhage 08/17/2018 CHEST PAIN ANTERIOR CHEST WALL 02/09/200610/17/2017 Pure hypercholesterolemia 06/09/20052017 Last Assessment & Plan: Her lipids and tgs are highly elevated PMH - PAST MEDICAL HISTORY OF Overview: Kidney Stones documented as of this encounter (statuses as of 09/09/2022) [facility] History of Past illness Narrative* Problem Noted Date Resolved Date Hypertriglyceridemia 08/31/2012 08/17/2018 Last Assessment & Plan: Really off target she is on the fenofibrate but is in a bad situation Her partner and she are estranged and she was made to move out of the house Patient says she was all set up. Kidney stones 01/10/2012 08/17/2018 Last Assessment & Plan: No problems recently Bulimia 07/08/2009 08/17/2018 Acute gastritis without mention of hemorrhage 08/17/2018 CHEST PAIN ANTERIOR CHEST WALL 02/09/2006 1 10/17/2017 Pure hypercholesterolemia 06/09/20052017 Last Assessment & Plan: Her lipids and tgs are highly elevated PMH - PAST MEDICAL HISTORY OF Overview: Kidney Stones documented as of this encounter (statuses as of 02/16/2023) [facility] History of Past illness Narrative* Problem Noted Date Resolved Date Hypertriglyceridemia 08/31/2012 08/17/2018 Last Assessment & Plan: Really off target she is on the fenofibrate but is in a bad situation Her partner and she are estranged and she was made to move out of the house Patient says she was all set up. Kidney stones 01/10/2012 08/17/2018 Last Assessment & Plan: No problems recently Bulimia 07/08/2009 08/17/2018 Acute gastritis without mention of hemorrhage 08/17/2018 CHEST PAIN ANTERIOR CHEST WALL 02/09/2006 1 10/17/2017 Pure hypercholesterolemia 06/09/20052017 Last Assessment & Plan: Her lipids and tgs are highly elevated PMH - PAST MEDICAL HISTORY OF Overview: Kidney Stones documented as of this encounter (statuses as of 02/17/2023) [facility] History of Past illness Narrative* Problem Noted Date Resolved Date Hypertriglyceridemia 08/31/2012 08/17/2018 Last Assessment & Plan: Really off target she is on the fenofibrate but is in a bad situation Her partner and she are estranged and she was made to move out of the house Patient says she was all set up. Kidney stones 01/10/2012 08/17/2018 Last Assessment & Plan: No problems recently Bulimia 07/08/2009 08/17/2018 Acute gastritis without mention of hemorrhage 08/17/2018 CHEST PAIN ANTERIOR CHEST WALL 02/09/2006 1 10/17/2017 Pure hypercholesterolemia 06/09/20052017 Last Assessment & Plan: Her lipids and tgs are highly elevated PMH - PAST MEDICAL HISTORY OF Overview: Kidney Stones documented as of this encounter (statuses as of 02/20/2023) [facility] of Past illness Narrative* Problem Noted Date Resolved Date Hypertriglyceridemia 08/31/2012 08/17/2018 Last Assessment & Plan: Really off target she is on the fenofibrate but is in a bad situation Her partner and she are estranged and she was made to move out of the house Patient says she was all set up. Kidney stones 01/10/2012 08/17/2018 Last Assessment & Plan: No problems recently Bulimia 07/08/2009 08/17/2018 Acute gastritis without mention of hemorrhage 08/17/2018 CHEST PAIN ANTERIOR CHEST WALL 02/09/2006 1 10/17/2017 Pure hypercholesterolemia 06/09/20052017 Last Assessment & Plan: Her lipids and tgs are highly elevated PMH - PAST MEDICAL HISTORY OF Overview: Kidney Stones documented as of this encounter (statuses as of 02/22/2023) [facility] of Past illness Narrative* Problem Noted Date Resolved Date Hypertriglyceridemia 08/31/2012 08/17/2018 Last Assessment & Plan: Really off target she is on the fenofibrate but is in a bad situation Her partner and she are estranged and she was made to move out of the house Patient says she was all set up. Kidney stones 01/10/2012 08/17/2018 Last Assessment & Plan: No problems recently Bulimia 07/08/2009 08/17/2018 Acute gastritis without mention of hemorrhage 08/17/2018 CHEST PAIN ANTERIOR CHEST WALL 02/09/2006 1 10/17/2017 Pure hypercholesterolemia 06/09/20052017 Last Assessment & Plan: Her lipids and tgs are highly elevated PMH - PAST MEDICAL HISTORY OF Overview: Kidney Stones documented as of this encounter (statuses as of 03/06/2023) [facility] Annual physical exam- Primary Routine general medical examination at a health care facility Recurrent major depressive disorder, in partial remission (HCC) Essential hypertension Unspecified essential hypertension Hyperlipidemia, mixed Mixed hyperlipidemia Gastroesophageal reflux disease, unspecified whether esophagitis present Prediabetes Other abnormal glucose Tobacco use Tobacco use disorder Fibromyalgia Mylagia and myositis, unspecified Iron deficiency anemia, unspecified iron deficiency anemia type Screening mammogram for breast cancer Need for COVID-19 vaccine [facility] Leukocytosis, unspecified type- Primary Hyperlipidemia, mixed Mixed hyperlipidemia [facility] Diagnosis Abnormal mammogram- Primary Abnormal mammogram, unspecified [facility] Diagnosis Screening [facility] for breast cancer [facility] Diagnosis Leukocytosis, unspecified type- Primary [facility] Diagnosis Decreased pedal pulses- Primary Other symptoms involving cardiovascular system [facility] Diagnosis PAD (peripheral artery disease) (HCC)- Primary Peripheral vascular disease, unspecified [facility] Diagnosis Calcification of left breast on mammography- Primary [facility] Diagnosis Abnormal mammogram- Primary Abnormal mammogram, unspecified [facility] Diagnosis Recurrent major depressive disorder, in partial remission (HCC) Fibromyalgia Mylagia and myositis, unspecified [facility] noteNo assessment information availableWHocking [facility] Work Phone: Evaluation note* Diagnosis Chest pain, unspecified type- Primary Primary hypertension Unspecified essential hypertension Hyperlipidemia, mixed Mixed hyperlipidemia Tobacco use disorder Abnormal EKG Nonspecific abnormal electrocardiogram (ECG) (EKG) documented in this encounter [facility] note* Diagnosis Hyperkalemia- Primary Hyperpotassemia documented in this encounter [facility] note* Diagnosis Encounter for screening mammogram for breast cancer [facility]* Diagnosis Encounter for screening mammogram for breast cancer documented in this encounter [facility] note* Diagnosis Chest pain, unspecified type documented in this encounter [facility] note* Diagnosis Upper respiratory tract infection, unspecified type- Primary documented in this encounter [facility] note* Diagnosis Essential hypertension Unspecified essential hypertension Gastroesophageal reflux disease, unspecified whether esophagitis present [facility]* Diagnosis Tobacco abuse- Primary Tobacco use disorder Coronary artery calcification seen on CAT scan Coronary atherosclerosis of unspecified type of vessel, [place] or graft Encounter for screening for lung cancer documented in this encounter [facility] note* Diagnosis Stress incontinence- Primary Female stress incontinence PROSPER (acute kidney injury) (HCC) Acute kidney failure, unspecified documented in this encounter [facility] note* Diagnosis Sore throat- Primary Acute pharyngitis Chronic obstructive pulmonary disease, unspecified COPD type (HCC) Stress incontinence Female stress incontinence documented in this encounter [facility] note* Diagnosis Urinary frequency- Primary Stress incontinence Female stress incontinence documented in this encounter [facility] note* Diagnosis Tubulovillous adenoma- Primary Benign neoplasm of unspecified site Screening for colon cancer Special screening for malignant neoplasms, colon [facility]* Diagnosis Chronic obstructive pulmonary disease, unspecified COPD type (HCC) documented in this encounter [facility] note* Diagnosis Essential hypertension- Primary Unspecified essential hypertension Prediabetes Other abnormal glucose Hyperlipidemia, mixed Mixed hyperlipidemia Gastroesophageal reflux disease, unspecified whether esophagitis present Tobacco use disorder Recurrent major depressive disorder, in partial remission (HCC) Lumbar stenosis with neurogenic claudication Spinal stenosis, lumbar region, with neurogenic claudication PROSPER (acute kidney injury) (HCC) Acute kidney failure, unspecified [facility] Diagnosis Urinary frequency Stress incontinence Female stress incontinence [facility] Diagnosis Coronary artery calcification seen on CAT scan- Primary Coronary atherosclerosis of unspecified type of vessel, shoalwater or graft GILL (dyspnea on exertion) Other dyspnea and respiratory abnormality Abnormal ECG Nonspecific abnormal electrocardiogram (ECG) (EKG) Primary hypertension Unspecified essential hypertension Hyperlipidemia, mixed Mixed hyperlipidemia [facility]* Diagnosis Recurrent major depressive disorder, in partial remission (HCC) Hyperlipidemia, mixed Mixed hyperlipidemia [facility]* Diagnosis Recurrent major depressive disorder, in partial remission (HCC) [facility]* Diagnosis Tubulovillous adenoma- Primary Benign neoplasm of unspecified site Screening for colon cancer Special screening for malignant neoplasms, colon [facility]* Diagnosis Encounter to establish care- Primary Other reasons for seeking consultation Fibromyalgia Mylagia and myositis, unspecified Hypertriglyceridemia Pure hyperglyceridemia Pure hypercholesterolemia Tobacco use disorder Alcohol use disorder, mild, abuse Fibromyalgia- Primary Mylagia and myositis, unspecified Essential hypertension Unspecified essential hypertension Hypertriglyceridemia Pure hyperglyceridemia Chronic prescription opiate use Kidney stones Calculus of kidney Uncomplicated alcohol dependence (HCC) Other and unspecified alcohol dependence, unspecified drinking behavior Tobacco use disorder- Primary Pure hypercholesterolemia Hypertriglyceridemia Pure hyperglyceridemia Essential hypertension Unspecified essential hypertension Uncomplicated alcohol dependence (HCC) Other and unspecified alcohol dependence, unspecified drinking behavior Fibromyalgia Mylagia and myositis, unspecified Chronic prescription opiate use Prediabetes Other abnormal glucose [facility] Diagnosis Encounter to establish care- Primary Other reasons for seeking consultation Fibromyalgia Mylagia and myositis, unspecified Hypertriglyceridemia Pure hyperglyceridemia Pure hypercholesterolemia Tobacco use disorder Alcohol use disorder, mild, abuse Fibromyalgia- Primary Mylagia and myositis, unspecified Essential hypertension Unspecified essential hypertension Hypertriglyceridemia Pure hyperglyceridemia Chronic prescription opiate use Kidney stones Calculus of kidney Uncomplicated alcohol dependence (HCC) Other and unspecified alcohol dependence, unspecified drinking behavior Tobacco use disorder- Primary Pure hypercholesterolemia Hypertriglyceridemia Pure hyperglyceridemia Essential hypertension Unspecified essential hypertension Uncomplicated alcohol dependence (HCC) Other and unspecified alcohol dependence, unspecified drinking behavior Fibromyalgia Mylagia and myositis, unspecified Chronic prescription opiate use Routine physical examination- Primary Routine general medical examination at a health care facility Prediabetes Other abnormal glucose Hyperlipidemia, mixed Mixed hyperlipidemia Essential hypertension Unspecified essential hypertension Lumbar stenosis with neurogenic claudication Spinal stenosis, lumbar region, with neurogenic claudication Encounter for screening mammogram for breast cancer Pain of right thumb Pain in limb Chronic obstructive pulmonary disease, unspecified COPD type (HCC) Gastroesophageal reflux disease, unspecified whether esophagitis present Coronary artery calcification Coronary atherosclerosis of unspecified type of vessel, shoalwater or graft Pain of right thumb Pain in limb [facility] Diagnosis Encounter to establish care- Primary Other reasons for seeking consultation Fibromyalgia Mylagia and myositis, unspecified Hypertriglyceridemia Pure hyperglyceridemia Pure hypercholesterolemia Tobacco use disorder Alcohol use disorder, mild, abuse Fibromyalgia- Primary Mylagia and myositis, unspecified Essential hypertension Unspecified essential hypertension Hypertriglyceridemia Pure hyperglyceridemia Chronic prescription opiate use Kidney stones Calculus of kidney Uncomplicated alcohol dependence (HCC) Other and unspecified alcohol dependence, unspecified drinking behavior Tobacco use disorder- Primary Pure hypercholesterolemia Hypertriglyceridemia Pure hyperglyceridemia Essential hypertension Unspecified essential hypertension Uncomplicated alcohol dependence (HCC) Other and unspecified alcohol dependence, unspecified drinking behavior Fibromyalgia Mylagia and myositis, unspecified Chronic prescription opiate use Pain of right thumb Pain in limb [facility] Diagnosis Encounter to establish care- Primary Other reasons for seeking consultation Fibromyalgia Mylagia and myositis, unspecified Hypertriglyceridemia Pure hyperglyceridemia Pure hypercholesterolemia Tobacco use disorder Alcohol use disorder, mild, abuse Fibromyalgia- Primary Mylagia and myositis, unspecified Essential hypertension Unspecified essential hypertension Hypertriglyceridemia Pure hyperglyceridemia Chronic prescription opiate use Kidney stones Calculus of kidney Uncomplicated alcohol dependence (HCC) Other and unspecified alcohol dependence, unspecified drinking behavior Tobacco use disorder- Primary Pure hypercholesterolemia Hypertriglyceridemia Pure hyperglyceridemia Essential hypertension Unspecified essential hypertension Uncomplicated alcohol dependence (HCC) Other and unspecified alcohol dependence, unspecified drinking behavior Fibromyalgia Mylagia and myositis, unspecified Chronic prescription opiate use Chest pain, unspecified type [facility] Diagnosis Encounter to establish care- Primary Other reasons for seeking consultation Fibromyalgia Mylagia and myositis, unspecified Hypertriglyceridemia Pure hyperglyceridemia Pure hypercholesterolemia Tobacco use disorder Alcohol use disorder, mild, abuse Fibromyalgia- Primary Mylagia and myositis, unspecified Essential hypertension Unspecified essential hypertension Hypertriglyceridemia Pure hyperglyceridemia Chronic prescription opiate use Kidney stones Calculus of kidney Uncomplicated alcohol dependence (HCC) Other and unspecified alcohol dependence, unspecified drinking behavior Tobacco use disorder- Primary Pure hypercholesterolemia Hypertriglyceridemia Pure hyperglyceridemia Essential hypertension Unspecified essential hypertension Uncomplicated alcohol dependence (HCC) Other and unspecified alcohol dependence, unspecified drinking behavior Fibromyalgia Mylagia and myositis, unspecified Chronic prescription opiate use Pain of right thumb- Primary Pain in limb [facility] Diagnosis Encounter to establish care- Primary Other reasons for seeking consultation Fibromyalgia Mylagia and myositis, unspecified Hypertriglyceridemia Pure hyperglyceridemia Pure hypercholesterolemia Tobacco use disorder Alcohol use disorder, mild, abuse Fibromyalgia- Primary Mylagia and myositis, unspecified Essential hypertension Unspecified essential hypertension Hypertriglyceridemia Pure hyperglyceridemia Chronic prescription opiate use Kidney stones Calculus of kidney Uncomplicated alcohol dependence (HCC) Other and unspecified alcohol dependence, unspecified drinking behavior Tobacco use disorder- Primary Pure hypercholesterolemia Hypertriglyceridemia Pure hyperglyceridemia Essential hypertension Unspecified essential hypertension Uncomplicated alcohol dependence (HCC) Other and unspecified alcohol dependence, unspecified drinking behavior Fibromyalgia Mylagia and myositis, unspecified Chronic prescription opiate use Essential hypertension Unspecified essential hypertension Gastroesophageal reflux disease, unspecified whether esophagitis present Recurrent major depressive disorder, in partial remission (HCC) documented in this encounter [facility] note* Diagnosis Encounter to establish care- Primary Other reasons for seeking consultation Fibromyalgia Mylagia and myositis, unspecified Hypertriglyceridemia Pure hyperglyceridemia Pure hypercholesterolemia Tobacco use disorder Alcohol use disorder, mild, abuse Fibromyalgia- Primary Mylagia and myositis, unspecified Essential hypertension Unspecified essential hypertension Hypertriglyceridemia Pure hyperglyceridemia Chronic prescription opiate use Kidney stones Calculus of kidney Uncomplicated alcohol dependence (HCC) Other and unspecified alcohol dependence, unspecified drinking behavior Tobacco use disorder- Primary Pure hypercholesterolemia Hypertriglyceridemia Pure hyperglyceridemia Essential hypertension Unspecified essential hypertension Uncomplicated alcohol dependence (HCC) Other and unspecified alcohol dependence, unspecified drinking behavior Fibromyalgia Mylagia and myositis, unspecified Chronic prescription opiate use Hyperlipidemia, mixed Mixed hyperlipidemia documented in this encounter [facility] note* Diagnosis Encounter to establish care- Primary Other reasons for seeking consultation Fibromyalgia Mylagia and myositis, unspecified Hypertriglyceridemia Pure hyperglyceridemia Pure hypercholesterolemia Tobacco use disorder Alcohol use disorder, mild, abuse Fibromyalgia- Primary Mylagia and myositis, unspecified Essential hypertension Unspecified essential hypertension Hypertriglyceridemia Pure hyperglyceridemia Chronic prescription opiate use Kidney stones Calculus of kidney Uncomplicated alcohol dependence (HCC) Other and unspecified alcohol dependence, unspecified drinking behavior Tobacco use disorder- Primary Pure hypercholesterolemia Hypertriglyceridemia Pure hyperglyceridemia Essential hypertension Unspecified essential hypertension Uncomplicated alcohol dependence (HCC) Other and unspecified alcohol dependence, unspecified drinking behavior Fibromyalgia Mylagia and myositis, unspecified Chronic prescription opiate use Essential hypertension- Primary Unspecified essential hypertension Hyperlipidemia, mixed Mixed hyperlipidemia Encounter for screening mammogram for breast cancer Asymptomatic menopause Encounter for screening for osteoporosis Special screening for osteoporosis Encounter for immunization Need for other specified prophylactic vaccination against single bacterial disease Fatigue, unspecified type Vitamin D insufficiency Unspecified vitamin D deficiency Tobacco use disorder Coronary artery calcification Coronary atherosclerosis of unspecified type of vessel, shoalwater or graft Chronic obstructive pulmonary disease, unspecified COPD type ([facility]) Prediabetes Other abnormal glucose [facility] Diagnosis Encounter to establish care- Primary Other reasons for seeking consultation Fibromyalgia Mylagia and myositis, unspecified Hypertriglyceridemia Pure hyperglyceridemia Pure hypercholesterolemia Tobacco use disorder Alcohol use disorder, mild, abuse Fibromyalgia- Primary Mylagia and myositis, unspecified Essential hypertension Unspecified essential hypertension Hypertriglyceridemia Pure hyperglyceridemia Chronic prescription opiate use Kidney stones Calculus of kidney Uncomplicated alcohol dependence (HCC) Other and unspecified alcohol dependence, unspecified drinking behavior Tobacco use disorder- Primary Pure hypercholesterolemia Hypertriglyceridemia Pure hyperglyceridemia Essential hypertension Unspecified essential hypertension Uncomplicated alcohol dependence (HCC) Other and unspecified alcohol dependence, unspecified drinking behavior Fibromyalgia Mylagia and myositis, unspecified Chronic prescription opiate use Elevated TSH- Primary Nonspecific abnormal results of thyroid function study High vitamin D level Hypervitaminosis D [facility] Diagnosis Encounter to establish care- Primary Other reasons for seeking consultation Fibromyalgia Mylagia and myositis, unspecified Hypertriglyceridemia Pure hyperglyceridemia Pure hypercholesterolemia Tobacco use disorder Alcohol use disorder, mild, abuse Fibromyalgia- Primary Mylagia and myositis, unspecified Essential hypertension Unspecified essential hypertension Hypertriglyceridemia Pure hyperglyceridemia Chronic prescription opiate use Kidney stones Calculus of kidney Uncomplicated alcohol dependence (HCC) Other and unspecified alcohol dependence, unspecified drinking behavior Tobacco use disorder- Primary Pure hypercholesterolemia Hypertriglyceridemia Pure hyperglyceridemia Essential hypertension Unspecified essential hypertension Uncomplicated alcohol dependence (HCC) Other and unspecified alcohol dependence, unspecified drinking behavior Fibromyalgia Mylagia and myositis, unspecified Chronic prescription opiate use High vitamin D level- Primary Hypervitaminosis D [facility] Diagnosis Encounter to establish care- Primary Other reasons for seeking consultation Fibromyalgia Mylagia and myositis, unspecified Hypertriglyceridemia Pure hyperglyceridemia Pure hypercholesterolemia Tobacco use disorder Alcohol use disorder, mild, abuse Fibromyalgia- Primary Mylagia and myositis, unspecified Essential hypertension Unspecified essential hypertension Hypertriglyceridemia Pure hyperglyceridemia Chronic prescription opiate use Kidney stones Calculus of kidney Uncomplicated alcohol dependence (HCC) Other and unspecified alcohol dependence, unspecified drinking behavior Tobacco use disorder- Primary Pure hypercholesterolemia Hypertriglyceridemia Pure hyperglyceridemia Essential hypertension Unspecified essential hypertension Uncomplicated alcohol dependence (HCC) Other and unspecified alcohol dependence, unspecified drinking behavior Fibromyalgia Mylagia and myositis, unspecified Chronic prescription opiate use Prediabetes Other abnormal glucose Chronic obstructive pulmonary disease, unspecified COPD type (HCC) documented in this encounter [facility] note* Diagnosis Encounter to establish care- Primary Other reasons for seeking consultation Fibromyalgia Mylagia and myositis, unspecified Hypertriglyceridemia Pure hyperglyceridemia Pure hypercholesterolemia Tobacco use disorder Alcohol use disorder, mild, abuse Fibromyalgia- Primary Mylagia and myositis, unspecified Essential hypertension Unspecified essential hypertension Hypertriglyceridemia Pure hyperglyceridemia Chronic prescription opiate use Kidney stones Calculus of kidney Uncomplicated alcohol dependence (HCC) Other and unspecified alcohol dependence, unspecified drinking behavior Tobacco use disorder- Primary Pure hypercholesterolemia Hypertriglyceridemia Pure hyperglyceridemia Essential hypertension Unspecified essential hypertension Uncomplicated alcohol dependence (HCC) Other and unspecified alcohol dependence, unspecified drinking behavior Fibromyalgia Mylagia and myositis, unspecified Chronic prescription opiate use Abnormal mammogram- Primary Abnormal mammogram, unspecified documented in this encounter [facility] note* Diagnosis Encounter to establish care- Primary Other reasons for seeking consultation Fibromyalgia Mylagia and myositis, unspecified Hypertriglyceridemia Pure hyperglyceridemia Pure hypercholesterolemia Tobacco use disorder Alcohol use disorder, mild, abuse Fibromyalgia- Primary Mylagia and myositis, unspecified Essential hypertension Unspecified essential hypertension Hypertriglyceridemia Pure hyperglyceridemia Chronic prescription opiate use Kidney stones Calculus of kidney Uncomplicated alcohol dependence (HCC) Other and unspecified alcohol dependence, unspecified drinking behavior Tobacco use disorder- Primary Pure hypercholesterolemia Hypertriglyceridemia Pure hyperglyceridemia Essential hypertension Unspecified essential hypertension Uncomplicated alcohol dependence (HCC) Other and unspecified alcohol dependence, unspecified drinking behavior Fibromyalgia Mylagia and myositis, unspecified Chronic prescription opiate use Dermatitis- Primary Contact dermatitis and other eczema, due to unspecified cause [facility] Diagnosis Encounter to establish care- Primary Other reasons for seeking consultation Fibromyalgia Mylagia and myositis, unspecified Hypertriglyceridemia Pure hyperglyceridemia Pure hypercholesterolemia Tobacco use disorder Alcohol use disorder, mild, abuse Fibromyalgia- Primary Mylagia and myositis, unspecified Essential hypertension Unspecified essential hypertension Hypertriglyceridemia Pure hyperglyceridemia Chronic prescription opiate use Kidney stones Calculus of kidney Uncomplicated alcohol dependence (HCC) Other and unspecified alcohol dependence, unspecified drinking behavior Tobacco use disorder- Primary Pure hypercholesterolemia Hypertriglyceridemia Pure hyperglyceridemia Essential hypertension Unspecified essential hypertension Uncomplicated alcohol dependence (HCC) Other and unspecified alcohol dependence, unspecified drinking behavior Fibromyalgia Mylagia and myositis, unspecified Chronic prescription opiate use Stress incontinence- Primary Female stress incontinence Urinary frequency Smoker Tobacco use disorder Chronic cough Cough Allergy status to other drugs, medicaments and biological substances Age-related osteoporosis without current pathological fracture Senile osteoporosis Encounter for screening for malignant neoplasm of lung Chronic obstructive pulmonary disease, unspecified COPD type (HCC) Urinary frequency [facility] Diagnosis Encounter to establish care- Primary Other reasons for seeking consultation Fibromyalgia Mylagia and myositis, unspecified Hypertriglyceridemia Pure hyperglyceridemia Pure hypercholesterolemia Tobacco use disorder Alcohol use disorder, mild, abuse Fibromyalgia- Primary Mylagia and myositis, unspecified Essential hypertension Unspecified essential hypertension Hypertriglyceridemia Pure hyperglyceridemia Chronic prescription opiate use Kidney stones Calculus of kidney Uncomplicated alcohol dependence (HCC) Other and unspecified alcohol dependence, unspecified drinking behavior Tobacco use disorder- Primary Pure hypercholesterolemia Hypertriglyceridemia Pure hyperglyceridemia Essential hypertension Unspecified essential hypertension Uncomplicated alcohol dependence (HCC) Other and unspecified alcohol dependence, unspecified drinking behavior Fibromyalgia Mylagia and myositis, unspecified Chronic prescription opiate use Urinary frequency [facility] Diagnosis Encounter to establish care- Primary Other reasons for seeking consultation Fibromyalgia Mylagia and myositis, unspecified Hypertriglyceridemia Pure hyperglyceridemia Pure hypercholesterolemia Tobacco use disorder Alcohol use disorder, mild, abuse Fibromyalgia- Primary Mylagia and myositis, unspecified Essential hypertension Unspecified essential hypertension Hypertriglyceridemia Pure hyperglyceridemia Chronic prescription opiate use Kidney stones Calculus of kidney Uncomplicated alcohol dependence (HCC) Other and unspecified alcohol dependence, unspecified drinking behavior Tobacco use disorder- Primary Pure hypercholesterolemia Hypertriglyceridemia Pure hyperglyceridemia Essential hypertension Unspecified essential hypertension Uncomplicated alcohol dependence (HCC) Other and unspecified alcohol dependence, unspecified drinking behavior Fibromyalgia Mylagia and myositis, unspecified Chronic prescription opiate use Abnormal mammogram Abnormal mammogram, unspecified [facility] Diagnosis Encounter to establish care- Primary Other reasons for seeking consultation Fibromyalgia Mylagia and myositis, unspecified Hypertriglyceridemia Pure hyperglyceridemia Pure hypercholesterolemia Tobacco use disorder Alcohol use disorder, mild, abuse Fibromyalgia- Primary Mylagia and myositis, unspecified Essential hypertension Unspecified essential hypertension Hypertriglyceridemia Pure hyperglyceridemia Chronic prescription opiate use Kidney stones Calculus of kidney Uncomplicated alcohol dependence (HCC) Other and unspecified alcohol dependence, unspecified drinking behavior Tobacco use disorder- Primary Pure hypercholesterolemia Hypertriglyceridemia Pure hyperglyceridemia Essential hypertension Unspecified essential hypertension Uncomplicated alcohol dependence (HCC) Other and unspecified alcohol dependence, unspecified drinking behavior Fibromyalgia Mylagia and myositis, unspecified Chronic prescription opiate use Abnormal mammogram Abnormal mammogram, unspecified documented in this encounter [facility] note* Diagnosis Encounter to establish care- Primary Other reasons for seeking consultation Fibromyalgia Mylagia and myositis, unspecified Hypertriglyceridemia Pure hyperglyceridemia Pure hypercholesterolemia Tobacco use disorder Alcohol use disorder, mild, abuse Fibromyalgia- Primary Mylagia and myositis, unspecified Essential hypertension Unspecified essential hypertension Hypertriglyceridemia Pure hyperglyceridemia Chronic prescription opiate use Kidney stones Calculus of kidney Uncomplicated alcohol dependence (HCC) Other and unspecified alcohol dependence, unspecified drinking behavior Tobacco use disorder- Primary Pure hypercholesterolemia Hypertriglyceridemia Pure hyperglyceridemia Essential hypertension Unspecified essential hypertension Uncomplicated alcohol dependence (HCC) Other and unspecified alcohol dependence, unspecified drinking behavior Fibromyalgia Mylagia and myositis, unspecified Chronic prescription opiate use Abnormal mammogram- Primary Abnormal mammogram, unspecified [facility] Diagnosis Encounter to establish care- Primary Other reasons for seeking consultation Fibromyalgia Mylagia and myositis, unspecified Hypertriglyceridemia Pure hyperglyceridemia Pure hypercholesterolemia Tobacco use disorder Alcohol use disorder, mild, abuse Fibromyalgia- Primary Mylagia and myositis, unspecified Essential hypertension Unspecified essential hypertension Hypertriglyceridemia Pure hyperglyceridemia Chronic prescription opiate use Kidney stones Calculus of kidney Uncomplicated alcohol dependence (HCC) Other and unspecified alcohol dependence, unspecified drinking behavior Tobacco use disorder- Primary Pure hypercholesterolemia Hypertriglyceridemia Pure hyperglyceridemia Essential hypertension Unspecified essential hypertension Uncomplicated alcohol dependence (HCC) Other and unspecified alcohol dependence, unspecified drinking behavior Fibromyalgia Mylagia and myositis, unspecified Chronic prescription opiate use Encounter for screening for lung cancer- Primary Tobacco abuse Tobacco use disorder documented in this encounter [facility] note* Diagnosis Encounter to establish care- Primary Other reasons for seeking consultation Fibromyalgia Mylagia and myositis, unspecified Hypertriglyceridemia Pure hyperglyceridemia Pure hypercholesterolemia Tobacco use disorder Alcohol use disorder, mild, abuse Fibromyalgia- Primary Mylagia and myositis, unspecified Essential hypertension Unspecified essential hypertension Hypertriglyceridemia Pure hyperglyceridemia Chronic prescription opiate use Kidney stones Calculus of kidney Uncomplicated alcohol dependence (HCC) Other and unspecified alcohol dependence, unspecified drinking behavior Tobacco use disorder- Primary Pure hypercholesterolemia Hypertriglyceridemia Pure hyperglyceridemia Essential hypertension Unspecified essential hypertension Uncomplicated alcohol dependence (HCC) Other and unspecified alcohol dependence, unspecified drinking behavior Fibromyalgia Mylagia and myositis, unspecified Chronic prescription opiate use Gastroesophageal reflux disease, unspecified whether esophagitis present Essential hypertension Unspecified essential hypertension Recurrent major depressive disorder, in partial remission Elevated TSH Nonspecific abnormal results of thyroid function study documented in this encounter [facility] for referral (narrative)* Diagnostic Procedure Only (Routine) - Authorized Specialty Diagnoses / Procedures Referred By Endy montes Referred To Contact [facility] Diagnoses Screening mammogram for breast cancer Procedures EDDY SCREENING SCREENING MAMMOGRAPHY BI 2-VIEW BREAST INC CAD Negrito Wilburn MD [address] [place] [address] [facility] [address] [place] [address] Referral ID Status Reason Start Date Expiration Date Visits Requested Visits Authorized [id number] Authorized Auto-Generat ed Referral 03/07/2022 09/17/2022 1 1 [facility] for referral (narrative)* Diagnostic Procedure Only (Routine) - Pending Review Specialty Diagnoses / Procedures Referred By Endy montes Referred To Contact [facility] Diagnoses Abnormal mammogram Procedures US BREAST LTD LT US BREAST UNI REAL TIME WITH IMAGE LIMITED LanlogJessica bennett APRN.COLD ROLLING SUPERVISOR [address] [place] [address] [facility] Imaging [address] [place] [address] Referral ID Status Reason Start Date Expiration Date Visits Requested Visits Authorized [id number] Pending Review Auto-Generat ed Referral 03/14/2022 04/13/2023 1 1 * Diagnostic Procedure Only (Routine) - Pending Review Specialty Diagnoses / Procedures Referred By Hermelindaac t Referred To Contact [facility] Diagnoses Abnormal mammogram Procedures EDDY DIAGNOSTIC LT DIAGNOSTIC MAMMOGRAPHY COMPUTER-AIDED DETCJ UNI LanlogJessica bennett APRN.CNP [address] [place] [address] [facility] [address] [place] [address] Referral ID Status Reason Start Date Expiration Date Visits Requested Visits Authorized [id number] Pending Review Auto-Generat ed Referral 03/14/2022 04/13/2023 1 1 [facility] for referral (narrative)* Diagnostic Procedure Only (Routine) - Closed Specialty Diagnoses / Procedures Referred By Endy t Referred To Contact [facility] Diagnoses Screening mammogram for breast cancer Procedures EDDY SCREENING SCREENING MAMMOGRAPHY BI 2-VIEW BREAST INC CAD Negrito Wilburn MD [address] [place] [address] Br Imaging [address] [place] [address] Referral ID Status Reason Start Date Expiration Date V isits Requested Visits Authorized [id number] Closed Auto-Generate d Referral 03/07/2022 09/17/2022 1 1 [facility] for referral (narrative)* Outpatient Procedure (Routine) - Authorized Specialty Diagnoses / Procedures Referred By Contac t Referred To [facility] Diagnoses Decreased pedal pulses Procedures PVR ANK PRESS MANDI VAS LAB NON-INVAS PHYSIOLOGIC STD EXTREMITY ART 2 LEVEL Podlogar, RACHAEL Lopez [address] [place] [address] [facility] [place] [address] [place] [address] Referral ID Status Reason Start Date Expiration Date Visits Requested Visits Authorized [id number] Authorized Auto-Generat ed Referral 05/16/2022 05/16/2023 1 1 [facility] for referral (narrative)* Diagnostic Procedure Only (Urgent) - Authorized Specialty Diagnoses / Procedures [facility] Referred To Contact [facility] Diagnoses Chest pain, unspecified type Procedures NM CARDIAC PERF STRESS/PHARM MYOCARDIAL SPECT MULTIPLE STUDIES Negrito Wilburn MD [address] [place] [address] [facility] Functional Imaging [address] [place] [address] Referral ID Status Reason Start Date Expiration Date Visits Requested Visits Authorized [id number] Authorized Auto-Generat ed Referral 02/16/2023 03/17/2024 1 1 * Outpatient Procedure (Routine) - Closed Specialty Diagnoses / Procedures [facility] Referred To Contact [facility]ASCULAR [place] Diagnoses Chest pain, unspecified type Procedures ECG COMPLETE ECG ROUTINE ECG W/LEAST 12 LDS W/I&R Negrito Wilburn MD [address] [place] [address] [facility] [address] [address] Referral ID Status Reason Start Date Expiration Date V isits Requested Visits Authorized [id number] Closed Auto-Generate d Referral 02/16/2023 02/16/2024 1 1 [facility] for referral (narrative)* Diagnostic Procedure Only (Routine) - Pending Review Specialty Diagnoses / Procedures Referred By Endy montes Referred To Contact [facility] Diagnoses Encounter for screening mammogram for breast cancer Procedures EDDY SCREENING SCREENING MAMMOGRAPHY BI 2-VIEW BREAST INC CAD Negrito Wilburn MD [address] [place] [address] [facility] Imaging [address] [place] [address] Referral ID Status Reason Start Date Expiration Date Visits Requested Visits Authorized [id number] Pending Review Auto-Generat ed Referral 04/19/2023 05/18/2024 1 1 [facility] for referral (narrative)* Diagnostic Procedure Only (Urgent) - Closed Specialty Diagnoses / Procedures Referred By Endy montes Referred To Contact [facility] Diagnoses Chest pain, unspecified type Procedures NM CARDIAC PERF STRESS/PHARM MYOCARDIAL SPECT MULTIPLE STUDIES Negrito Wilburn MD [address] [place] [address] Molecular [facility] Functional Imaging [address] [place] [address] Referral ID Status Reason Start Date Expiration Date V isits Requested Visits Authorized [id number] Closed Auto-Generate d Referral 02/16/2023 03/17/2024 1 1 T [facility] for referral (narrative)* Outpatient Procedure (Routine) - Pending Review Specialty Diagnoses / Procedures [facility] Referred To Contact [facility] Diagnoses Screening for colon cancer Tubulovillous adenoma Procedures COLONOSCOPY SCREENING COLONOSCOPY FLX DX W/COLLJ SPEC WHEN Alfred Rodrigues MD [facility] [address] [address] [facility] [place] [address] [place] [address] Referral ID Status Reason Start Date Expiration Date Visits Requested Visits Authorized [id number] Pending Review Auto-Generat ed Referral 11/24/2023 11/23/2024 1 1 [facility] for referral (narrative)* Diagnostic Procedure Only (Routine) - Pending Review Specialty Diagnoses / Procedures Referred By Endy montes Referred To Contact [facility]CULAR [facility] FUN[facility]AGING Diagnoses Coronary artery calcification seen on CAT scan GILL (dyspnea on exertion) Abnormal ECG Primary hypertension Hyperlipidemia, mixed Procedures NM CARDIAC PERF STRESS/PHARM MYOCARDIAL SPECT MULTIPLE STUDIES Lorenza Major DO [address] [place] [address] Molecular [facility] Functional Imaging [address] [place] [address] Referral ID Status Reason Start Date Expiration Date Visits Requested Visits Authorized [id number] Pending Review Auto-Generat ed Referral 03/11/2024 04/10/2025 1 1 [facility] for referral (narrative)* Outpatient Procedure (Routine) - Closed Specialty Diagnoses / Procedures Referred By Endy montes Referred To Contact [facility] Diagnoses Screening for colon cancer Tubulovillous adenoma Procedures COLONOSCOPY SCREENING COLONOSCOPY FLX DX W/COLLJ SPEC WHEN Alfred Rodrigues MD [address] [address] [facility] [address] [place] [address] Referral ID Status Reason Start Date Expiration Date V isits Requested Visits Authorized [id number] Closed Auto-Generate d Referral 01/09/2024 01/08/2025 1 1 [facility] for referral (narrative)* Diagnostic Procedure Only (Urgent) - Closed Specialty Diagnoses / Procedures Referred By Endy montes Referred To Contact XR IMAGING Diagnoses Pain of right thumb Procedures XR DIGIT GENERAL 3V FRONTAL/LAT/OBL RIGHT RADEX FINGR MINIMUM 2 VIEWS PodlogarJessica APRN.COLD ROLLING SUPERVISOR [address] [place] [address] [place] [address] Referral ID Status Reason Start Date Expiration Date V isits Requested Visits Authorized [id number] Closed Auto-Generate d Referral 06/05/2024 07/05/2025 1 1 * Diagnostic Procedure Only (Routine) - New Request Specialty Diagnoses / Procedures Referred By Contac t Referred To Contact [facility] Diagnoses Encounter for screening mammogram for breast cancer Procedures EDDY SCREENING W ROXANNE SCREENING DIGITAL BREAST TOMOSYNTHESIS BI SCREENING MAMMOGRAPHY BI 2-VIEW BREAST INC CAD Jessica Palencia APRN.COLD ROLLING SUPERVISOR [address] [place] [address] [facility] Imaging [address] [place] [address] Referral ID Status Reason Start Date Expiration Date Visits Requested Visits Authorized [id number] New Request Auto-Generat ed Referral 06/05/2024 07/05/2025 1 1 [facility] for referral (narrative)* Diagnostic Procedure Only (Urgent) - Closed Specialty Diagnoses / Procedures Referred By Endy t Referred To Contact XR IMAGING Diagnoses Pain of right thumb Procedures XR DIGIT GENERAL 3V FRONTAL/LAT/OBL RIGHT RADEX FINGR MINIMUM 2 VIEWS Jessica Palencia APRN.COLD ROLLING SUPERVISOR [address] [place] [address] [place] [address] Referral ID Status Reason Start Date Expiration Date V isits Requested Visits Authorized [id number] Closed Auto-Generate d Referral 06/05/2024 07/05/2025 1 1 [facility] for visit Narrative* Diagnostic Procedure Only (Routine) - Closed Specialty Diagnoses / Procedures Referred By Contac t Referred To Contact [facility] Diagnoses Screening mammogram for breast cancer Procedures EDDY SCREENING SCREENING MAMMOGRAPHY BI 2-VIEW BREAST INC CAD Negrito Wilburn MD [address] [place] [address] Br Imaging [address] [place] [address] Referral ID Status Reason Start Date Expiration Date V isits Requested Visits Authorized [id number] Closed Auto-Generate d Referral 03/07/2022 09/17/2022 1 1 [facility] for visit Narrative* Diagnostic Procedure Only (Routine) - Closed Specialty Diagnoses / Procedures Referred By Contac t Referred To Contact [facility] Diagnoses Encounter for screening mammogram for breast cancer Procedures EDDY SCREENING SCREENING MAMMOGRAPHY BI 2-VIEW BREAST INC CAD Negrito Wilburn MD [address] [place] [address] Br Imaging [address] [place] [address] Referral ID Status Reason Start Date Expiration Date V isits Requested Visits Authorized [id number] Closed Auto-Generate d Referral 04/19/2023 05/18/2024 1 1 [facility] for visit Narrative* Outpatient Procedure (Routine) - Closed Specialty Diagnoses / Procedures Referred By Contac t Referred To Contact [facility] Diagnoses Screening for colon cancer Tubulovillous adenoma Procedures COLONOSCOPY SCREENING COLONOSCOPY FLX DX W/COLLJ SPEC WHEN PFLUPED Alfred Wills MD [address] [address] [facility] [address] [place] [address] Referral ID Status Reason Start Date Expiration Date V isits Requested Visits Authorized [id number] Closed Auto-Generate d Referral 01/09/2024 01/08/2025 1 1 [facility] for visit Narrative* Diagnostic Procedure Only (Urgent) - Closed Specialty Diagnoses / Procedures Referred By Contac t Referred To Contact XR IMAGING Diagnoses Pain of right thumb Procedures XR DIGIT GENERAL 3V FRONTAL/LAT/OBL RIGHT RADEX FINGR MINIMUM 2 VIEWS LanlogJessica bennett APRN.COLD ROLLING SUPERVISOR [address] [place] [address] [place] [address] Referral ID Status Reason Start Date Expiration Date V isits Requested Visits Authorized [id number] Closed Auto-Generate d Referral 06/05/2024 07/05/2025 1 1 [facility] for visit Narrative* Diagnostic Procedure Only (Routine) - Closed Specialty Diagnoses / Procedures Referred By Contac t Referred To Contact [facility] Diagnoses Abnormal mammogram Procedures EDDY DIAGNOSTIC LEFT DIAGNOSTIC MAMMOGRAPHY COMPUTER-AIDED DETCJ UNI Podlogar, Jessica, DESTINATION SIGN REPAIRER.COLD ROLLING SUPERVISOR [address] [place] [address] Phone: tel: fax: [facility] [address] [place] [address] Referral ID Status Reason Start Date Expiration Date V isits Requested Visits Authorized [id number] Closed Auto-Generate d Referral 01/13/2025 02/12/2026 1 1 [facility] for visit Narrative* Diagnostic Procedure Only (Routine) - Closed Specialty Diagnoses / Procedures Referred By Endy montes Referred To Contact [facility] Diagnoses Abnormal mammogram Procedures US BREAST LTD LEFT US BREAST UNI REAL TIME WITH IMAGE LIMITED Podlogar, Jessica, DESTINATION SIGN REPAIRER.COLD ROLLING SUPERVISOR [address] [place] [address] Phone: tel: fax: [facility] [address] [place] [address] Referral ID Status Reason Start Date Expiration Date V isits Requested Visits Authorized [id number] Closed Auto-Generate d Referral 01/13/2025 02/12/[address] [facility] Advance Directives Documents on File Type Date Recorded Patient Coding Compliance Auditor Expl anation Advance Directive(s) 10/22/2018 9:38 AM Advance Directive(s) 02/23/2018 3:58 PM Advance Directive(s) 02/14/2018 5:13 PM Advance Directive(s) 01/10/2018 4:49 PM Advance Directive(s) 07/24/2013 6:56 AM Advance Directive(s) 07/21/2009 5:14 AM Advance Directive(s) 04/11/2007 12:00 AM Documents on File Type Date Recorded Patient Coding Compliance Auditor Expl anation Advance Directive(s) 10/22/2018 9:38 AM Advance Directive(s) 02/23/2018 3:58 PM Advance Directive(s) 02/14/2018 5:13 PM Advance Directive(s) 01/10/2018 4:49 PM Advance Directive(s) 07/24/2013 6:56 AM Advance Directive(s) 07/21/2009 5:14 AM Advance Directive(s) 04/11/2007 12:00 AM Documents on File Type Date Recorded Patient Coding Compliance Auditor Expl anation Advance Directive(s) 02/23/2018 3:58 PM Advance Directive(s) 07/24/2013 6:56 AM Advance Directive(s) 07/21/2009 5:14 AM Advance Directive(s) 04/11/2007 Documents on File Type Date Recorded Patient Coding Compliance Auditor Expl anation Advance Directive(s) 02/23/2018 3:58 PM Advance Directive(s) 07/24/2013 6:56 AM Advance Directive(s) 07/21/2009 5:14 AM Advance Directive(s) 04/11/2007 Advance Directive Response Recorded Date/ Time Living Will No March 07, 2018 12:29pm Power of Oil Burner Yes March 07 12:29pm Reason for Referral Specialty Diagnoses / Procedures Referred By Contac t Referred To Contact Vascular Surgery Diagnoses PAD (peripheral artery disease) (HCC) Procedures CONSULT TO VASCULAR SURGERY OFFICE/OUTPATIENT [facility] MDM 60-74 MINUTES Negrito Wilburn MD [address] [place] [address] Referral ID Status Reason Start Date Expiration Date Visits Requested Visits Authorized [id number] Pending Review PCP Requested Referral 05/13/2022 05/13/2023 1 1 Specialty Diagnoses / Procedures Referred By Contac t Referred To Contact General Surgery Diagnoses Abnormal mammogram Procedures CONSULT TO GENERAL SURGERY OFFICE/OUTPATIENT [facility] MDM 60-74 MINUTES Jessica Palencia APRN.COLD ROLLING SUPERVISOR [address] [place] [address] Referral ID Status Reason Start Date Expiration Date Visits Requested Visits Authorized [id number] Pending Review PCP Requested Referral 05/03/2022 05/03/2023 1 1 Specialty Diagnoses / Procedures Referred By Contac t Referred To Contact CT IMAGING Diagnoses Tobacco abuse Encounter for screening for lung cancer Procedures CT LUNG SCREEN WO IVCON COMPUTED TOMOGRAPHY THORAX LW DOSE LNG CA YONY Diallo- Tatyana Perez APRN.COLD ROLLING SUPERVISOR [address] [place] [address] [place] [address] Referral ID Status Reason Start Date Expiration Date Visits Requested Visits Authorized [id number] Pending Review Auto-Generat ed Referral 10/19/2023 11/17/2024 1 1 Specialty Diagnoses / Procedures Referred By Contac t Referred To Contact Cardiology Diagnoses Coronary artery calcification seen on CAT scan Procedures CONSULT TO CARDIOLOGY OFFICE/OUTPATIENT [facility] 60 MINUTES Tatyana Perez, DESTINATION SIGN REPAIRER.COLD ROLLING SUPERVISOR [address] [place] [address] Referral ID Status Reason Start Date Expiration Date Visits Requested Visits Authorized [id number] Authorized PCP Requested Referral 10/19/2023 10/18/2024 1 1 Specialty Diagnoses / Procedures Referred By Contac t Referred To Contact Urology Diagnoses Stress incontinence Procedures CONSULT TO UROLOGY OFFICE/OUTPATIENT [facility] 60 MINUTES Helen Taylor, DESTINATION SIGN REPAIRER.COLD ROLLING SUPERVISOR [address] [place] [address] Referral ID Status Reason Start Date Expiration Date Visits Requested Visits Authorized [id number] Authorized PCP Requested Referral 11/09/2023 11/08/2024 1 1 Chief Complaint and Reason for Visit Chief Complaint OPIOID DEPENDENCE, U NCOMPLICATED Summary Purpose Family History No Family History Records Found Additional Source Comments Source Comments (unrecognize d section and content) In the event this informatio n is protected by the Federal Confidentiality of Alcohol and Drug Abuse Patient Records regulations: The Federal rules restrict any use of the information to criminally investigate or prosecute any alcohol or drug abuse patient.[facility] the event this information is protected by the Federal Confidentiality of Alcohol and Drug Abuse Patient Records regulations: The Federal rules restrict any use of the information to criminally investigate or prosecute any alcohol or drug abuse patient.[facility] the event this information is protected by the Federal Confidentiality of Alcohol and Drug Abuse Patient Records regulations: The Federal rules restrict any use of the information to criminally investigate or prosecute any alcohol or drug abuse patient.[facility] the event this information is protected by the Federal Confidentiality of Alcohol and Drug Abuse Patient Records regulations: The Federal rules restrict any use of the information to criminally investigate or prosecute any alcohol or drug abuse patient.[facility] the event this information is protected by the Federal Confidentiality of Alcohol and Drug Abuse Patient Records regulations: The Federal rules restrict any use of the information to criminally investigate or prosecute any alcohol or drug abuse patient.[facility] the event this information is protected by the Federal Confidentiality of Alcohol and Drug Abuse Patient Records regulations: The Federal rules restrict any use of the information to criminally investigate or prosecute any alcohol or drug abuse patient.[facility] the event this information is protected by the Federal Confidentiality of Alcohol and Drug Abuse Patient Records regulations: The Federal rules restrict any use of the information to criminally investigate or prosecute any alcohol or drug abuse patient.[facility] the event this information is protected by the Federal Confidentiality of Alcohol and Drug Abuse Patient Records regulations: The Federal rules restrict any use of the information to criminally investigate or prosecute any alcohol or drug abuse patient.[facility] the event this information is protected by the Federal Confidentiality of Alcohol and Drug Abuse Patient Records regulations: The Federal rules restrict any use of the information to criminally investigate or prosecute any alcohol or drug abuse patient.[facility] the event this information is protected by the Federal Confidentiality of Alcohol and Drug Abuse Patient Records regulations: The Federal rules restrict any use of the information to criminally investigate or prosecute any alcohol or drug abuse patient.[facility] the event this information is protected by the Federal Confidentiality of Alcohol and Drug Abuse Patient Records regulations: The Federal rules restrict any use of the information to criminally investigate or prosecute any alcohol or drug abuse patient.[facility] the event this information is protected by the Federal Confidentiality of Alcohol and Drug Abuse Patient Records regulations: The Federal rules restrict any use of the information to criminally investigate or prosecute any alcohol or drug abuse patient.[facility] the event this information is protected by the Federal Confidentiality of Alcohol and Drug Abuse Patient Records regulations: The Federal rules restrict any use of the information to criminally investigate or prosecute any alcohol or drug abuse patient.[facility] the event this information is protected by the Federal Confidentiality of Alcohol and Drug Abuse Patient Records regulations: The Federal rules restrict any use of the information to criminally investigate or prosecute any alcohol or drug abuse patient.[facility] the event this information is protected by the Federal Confidentiality of Alcohol and Drug Abuse Patient Records regulations: The Federal rules restrict any use of the information to criminally investigate or prosecute any alcohol or drug abuse patient.[facility] the event this information is protected by the Federal Confidentiality of Alcohol and Drug Abuse Patient Records regulations: The Federal rules restrict any use of the information to criminally investigate or prosecute any alcohol or drug abuse patient.[facility] the event this information is protected by the Federal Confidentiality of Alcohol and Drug Abuse Patient Records regulations: The Federal rules restrict any use of the information to criminally investigate or prosecute any alcohol or drug abuse patient.[facility] the event this information is protected by the Federal Confidentiality of Alcohol and Drug Abuse Patient Records regulations: The Federal rules restrict any use of the information to criminally investigate or prosecute any alcohol or drug abuse patient.[facility] the event this information is protected by the Federal Confidentiality of Alcohol and Drug Abuse Patient Records regulations: The Federal rules restrict any use of the information to criminally investigate or prosecute any alcohol or drug abuse patient.[facility] the event this information is protected by the Federal Confidentiality of Alcohol and Drug Abuse Patient Records regulations: The Federal rules restrict any use of the information to criminally investigate or prosecute any alcohol or drug abuse patient.[facility] the event this information is protected by the Federal Confidentiality of Alcohol and Drug Abuse Patient Records regulations: The Federal rules restrict any use of the information to criminally investigate or prosecute any alcohol or drug abuse patient.[facility] HospitalIn the event this information is protected by the Federal Confidentiality of Alcohol and Drug Abuse Patient Records regulations: The Federal rules restrict any use of the information to criminally investigate or prosecute any alcohol or drug abuse patient.[facility] HospitalIn the event this information is protected by the Federal Confidentiality of Alcohol and Drug Abuse Patient Records regulations: The Federal rules restrict any use of the information to criminally investigate or prosecute any alcohol or drug abuse patient.[facility] HospitalIn the event this information is protected by the Federal Confidentiality of Alcohol and Drug Abuse Patient Records regulations: The Federal rules restrict any use of the information to criminally investigate or prosecute any alcohol or drug abuse patient.[facility] HospitalIn the event this information is protected by the Federal Confidentiality of Alcohol and Drug Abuse Patient Records regulations: The Federal rules restrict any use of the information to criminally investigate or prosecute any alcohol or drug abuse patient.[facility] HospitalIn the event this information is protected by the Federal Confidentiality of Alcohol and Drug Abuse Patient Records regulations: The Federal rules restrict any use of the information to criminally investigate or prosecute any alcohol or drug abuse patient.[facility] HospitalIn the event this information is protected by the Federal Confidentiality of Alcohol and Drug Abuse Patient Records regulations: The Federal rules restrict any use of the information to criminally investigate or prosecute any alcohol or drug abuse patient.[facility] HospitalIn the event this information is protected by the Federal Confidentiality of Alcohol and Drug Abuse Patient Records regulations: The Federal rules restrict any use of the information to criminally investigate or prosecute any alcohol or drug abuse patient.[facility] HospitalIn the event this information is protected by the Federal Confidentiality of Alcohol and Drug Abuse Patient Records regulations: The Federal rules restrict any use of the information to criminally investigate or prosecute any alcohol or drug abuse patient.[facility] HospitalIn the event this information is protected by the Federal Confidentiality of Alcohol and Drug Abuse Patient Records regulations: The Federal rules restrict any use of the information to criminally investigate or prosecute any alcohol or drug abuse patient.[facility] HospitalIn the event this information is protected by the Federal Confidentiality of Alcohol and Drug Abuse Patient Records regulations: The Federal rules restrict any use of the information to criminally investigate or prosecute any alcohol or drug abuse patient.[facility] HospitalIn the event this information is protected by the Federal Confidentiality of Alcohol and Drug Abuse Patient Records regulations: The Federal rules restrict any use of the information to criminally investigate or prosecute any alcohol or drug abuse patient.[facility] HospitalIn the event this information is protected by the Federal Confidentiality of Alcohol and Drug Abuse Patient Records regulations: The Federal rules restrict any use of the information to criminally investigate or prosecute any alcohol or drug abuse patient.[facility] HospitalIn the event this information is protected by the Federal Confidentiality of Alcohol and Drug Abuse Patient Records regulations: The Federal rules restrict any use of the information to criminally investigate or prosecute any alcohol or drug abuse patient.[facility] HospitalIn the event this information is protected by the Federal Confidentiality of Alcohol and Drug Abuse Patient Records regulations: The Federal rules restrict any use of the information to criminally investigate or prosecute any alcohol or drug abuse patient.[facility] HospitalIn the event this information is protected by the Federal Confidentiality of Alcohol and Drug Abuse Patient Records regulations: The Federal rules restrict any use of the information to criminally investigate or prosecute any alcohol or drug abuse patient.[facility] HospitalIn the event this information is protected by the Federal Confidentiality of Alcohol and Drug Abuse Patient Records regulations: The Federal rules restrict any use of the information to criminally investigate or prosecute any alcohol or drug abuse patient.[facility] HospitalIn the event this information is protected by the Federal Confidentiality of Alcohol and Drug Abuse Patient Records regulations: The Federal rules restrict any use of the information to criminally investigate or prosecute any alcohol or drug abuse patient.[facility] HospitalIn the event this information is protected by the Federal Confidentiality of Alcohol and Drug Abuse Patient Records regulations: The Federal rules restrict any use of the information to criminally investigate or prosecute any alcohol or drug abuse patient.[facility] HospitalIn the event this information is protected by the Federal Confidentiality of Alcohol and Drug Abuse Patient Records regulations: The Federal rules restrict any use of the information to criminally investigate or prosecute any alcohol or drug abuse patient.[facility] HospitalIn the event this information is protected by the Federal Confidentiality of Alcohol and Drug Abuse Patient Records regulations: The Federal rules restrict any use of the information to criminally investigate or prosecute any alcohol or drug abuse patient.[facility] HospitalIn the event this information is protected by the Federal Confidentiality of Alcohol and Drug Abuse Patient Records regulations: The Federal rules restrict any use of the information to criminally investigate or prosecute any alcohol or drug abuse patient.[facility] HospitalIn the event this information is protected by the Federal Confidentiality of Alcohol and Drug Abuse Patient Records regulations: The Federal rules restrict any use of the information to criminally investigate or prosecute any alcohol or drug abuse patient.[facility] HospitalIn the event this information is protected by the Federal Confidentiality of Alcohol and Drug Abuse Patient Records regulations: The Federal rules restrict any use of the information to criminally investigate or prosecute any alcohol or drug abuse patient.[facility] HospitalIn the event this information is protected by the Federal Confidentiality of Alcohol and Drug Abuse Patient Records regulations: The Federal rules restrict any use of the information to criminally investigate or prosecute any alcohol or drug abuse patient.[facility] HospitalIn the event this information is protected by the Federal Confidentiality of Alcohol and Drug Abuse Patient Records regulations: The Federal rules restrict any use of the information to criminally investigate or prosecute any alcohol or drug abuse patient.[facility] HospitalIn the event this information is protected by the Federal Confidentiality of Alcohol and Drug Abuse Patient Records regulations: The Federal rules restrict any use of the information to criminally investigate or prosecute any alcohol or drug abuse patient.[facility] HospitalIn the event this information is protected by the Federal Confidentiality of Alcohol and Drug Abuse Patient Records regulations: The Federal rules restrict any use of the information to criminally investigate or prosecute any alcohol or drug abuse patient.[facility] HospitalIn the event this information is protected by the Federal Confidentiality of Alcohol and Drug Abuse Patient Records regulations: The Federal rules restrict any use of the information to criminally investigate or prosecute any alcohol or drug abuse patient.[facility] HospitalIn the event this information is protected by the Federal Confidentiality of Alcohol and Drug Abuse Patient Records regulations: The Federal rules restrict any use of the information to criminally investigate or prosecute any alcohol or drug abuse patient.[facility] HospitalIn the event this information is protected by the Federal Confidentiality of Alcohol and Drug Abuse Patient Records regulations: The Federal rules restrict any use of the information to criminally investigate or prosecute any alcohol or drug abuse patient.[facility] HospitalIn the event this information is protected by the Federal Confidentiality of Alcohol and Drug Abuse Patient Records regulations: The Federal rules restrict any use of the information to criminally investigate or prosecute any alcohol or drug abuse patient.[facility] HospitalIn the event this information is protected by the Federal Confidentiality of Alcohol and Drug Abuse Patient Records regulations: The Federal rules restrict any use of the information to criminally investigate or prosecute any alcohol or drug abuse patient.[facility] HospitalIn the event this information is protected by the Federal Confidentiality of Alcohol and Drug Abuse Patient Records regulations: The Federal rules restrict any use of the information to criminally investigate or prosecute any alcohol or drug abuse patient.[facility] HospitalIn the event this information is protected by the Federal Confidentiality of Alcohol and Drug Abuse Patient Records regulations: The Federal rules restrict any use of the information to criminally investigate or prosecute any alcohol or drug abuse patient.[facility] HospitalIn the event this information is protected by the Federal Confidentiality of Alcohol and Drug Abuse Patient Records regulations: The Federal rules restrict any use of the information to criminally investigate or prosecute any alcohol or drug abuse patient.[facility] HospitalIn the event this information is protected by the Federal Confidentiality of Alcohol and Drug Abuse Patient Records regulations: The Federal rules restrict any use of the information to criminally investigate or prosecute any alcohol or drug abuse patient.[facility] HospitalIn the event this information is protected by the Federal Confidentiality of Alcohol and Drug Abuse Patient Records regulations: The Federal rules restrict any use of the information to criminally investigate or prosecute any alcohol or drug abuse patient.[facility] HospitalIn the event this information is protected by the Federal Confidentiality of Alcohol and Drug Abuse Patient Records regulations: The Federal rules restrict any use of the information to criminally investigate or prosecute any alcohol or drug abuse patient.[facility] HospitalIn the event this information is protected by the Federal Confidentiality of Alcohol and Drug Abuse Patient Records regulations: The Federal rules restrict any use of the information to criminally investigate or prosecute any alcohol or drug abuse patient.[facility] HospitalIn the event this information is protected by the Federal Confidentiality of Alcohol and Drug Abuse Patient Records regulations: The Federal rules restrict any use of the information to criminally investigate or prosecute any alcohol or drug abuse patient.[facility] HospitalIn the event this information is protected by the Federal Confidentiality of Alcohol and Drug Abuse Patient Records regulations: The Federal rules restrict any use of the information to criminally investigate or prosecute any alcohol or drug abuse patient.[facility] HospitalIn the event this information is protected by the Federal Confidentiality of Alcohol and Drug Abuse Patient Records regulations: The Federal rules restrict any use of the information to criminally investigate or prosecute any alcohol or drug abuse patient.[facility] HospitalIn the event this information is protected by the Federal Confidentiality of Alcohol and Drug Abuse Patient Records regulations: The Federal rules restrict any use of the information to criminally investigate or prosecute any alcohol or drug abuse patient.[facility] HospitalIn the event this information is protected by the Federal Confidentiality of Alcohol and Drug Abuse Patient Records regulations: The Federal rules restrict any use of the information to criminally investigate or prosecute any alcohol or drug abuse patient.[facility] HospitalIn the event this information is protected by the Federal Confidentiality of Alcohol and Drug Abuse Patient Records regulations: The Federal rules restrict any use of the information to criminally investigate or prosecute any alcohol or drug abuse patient.[facility] HospitalIn the event this information is protected by the Federal Confidentiality of Alcohol and Drug Abuse Patient Records regulations: The Federal rules restrict any use of the information to criminally investigate or prosecute any alcohol or drug abuse patient.[facility] HospitalIn the event this information is protected by the Federal Confidentiality of Alcohol and Drug Abuse Patient Records regulations: The Federal rules restrict any use of the information to criminally investigate or prosecute any alcohol or drug abuse patient.[facility] HospitalIn the event this information is protected by the Federal Confidentiality of Alcohol and Drug Abuse Patient Records regulations: The Federal rules restrict any use of the information to criminally investigate or prosecute any alcohol or drug abuse patient.[facility] HospitalIn the event this information is protected by the Federal Confidentiality of Alcohol and Drug Abuse Patient Records regulations: The Federal rules restrict any use of the information to criminally investigate or prosecute any alcohol or drug abuse patient.[facility] HospitalIn the event this information is protected by the Federal Confidentiality of Alcohol and Drug Abuse Patient Records regulations: The Federal rules restrict any use of the information to criminally investigate or prosecute any alcohol or drug abuse patient.[facility] HospitalIn the event this information is protected by the Federal Confidentiality of Alcohol and Drug Abuse Patient Records regulations: The Federal rules restrict any use of the information to criminally investigate or prosecute any alcohol or drug abuse patient.[facility] HospitalIn the event this information is protected by the Federal Confidentiality of Alcohol and Drug Abuse Patient Records regulations: The Federal rules restrict any use of the information to criminally investigate or prosecute any alcohol or drug abuse patient.[facility] HospitalIn the event this information is protected by the Federal Confidentiality of Alcohol and Drug Abuse Patient Records regulations: The Federal rules restrict any use of the information to criminally investigate or prosecute any alcohol or drug abuse patient.[facility] HospitalIn the event this information is protected by the Federal Confidentiality of Alcohol and Drug Abuse Patient Records regulations: The Federal rules restrict any use of the information to criminally investigate or prosecute any alcohol or drug abuse patient.[facility] HospitalIn the event this information is protected by the Federal Confidentiality of Alcohol and Drug Abuse Patient Records regulations: The Federal rules restrict any use of the information to criminally investigate or prosecute any alcohol or drug abuse patient.[facility] HospitalIn the event this information is protected by the Federal Confidentiality of Alcohol and Drug Abuse Patient Records regulations: The Federal rules restrict any use of the information to criminally investigate or prosecute any alcohol or drug abuse patient.[facility] HospitalIn the event this information is protected by the Federal Confidentiality of Alcohol and Drug Abuse Patient Records regulations: The Federal rules restrict any use of the information to criminally investigate or prosecute any alcohol or drug abuse patient.[facility] HospitalIn the event this information is protected by the Federal Confidentiality of Alcohol and Drug Abuse Patient Records regulations: The Federal rules restrict any use of the information to criminally investigate or prosecute any alcohol or drug abuse patient.[facility] HospitalIn the event this information is protected by the Federal Confidentiality of Alcohol and Drug Abuse Patient Records regulations: The Federal rules restrict any use of the information to criminally investigate or prosecute any alcohol or drug abuse patient.[facility] HospitalIn the event this information is protected by the Federal Confidentiality of Alcohol and Drug Abuse Patient Records regulations: The Federal rules restrict any use of the information to criminally investigate or prosecute any alcohol or drug abuse patient.[facility] HospitalIn the event this information is protected by the Federal Confidentiality of Alcohol and Drug Abuse Patient Records regulations: The Federal rules restrict any use of the information to criminally investigate or prosecute any alcohol or drug abuse patient.[facility] HospitalIn the event this information is protected by the Federal Confidentiality of Alcohol and Drug Abuse Patient Records regulations: The Federal rules restrict any use of the information to criminally investigate or prosecute any alcohol or drug abuse patient.[facility] Reason for Visit (unrecogniz ed section and content) Reason Comments Consult Initial [facility] Pt Outr each Reason Comments Physical Specialty Diagnoses / Procedures Referred By Contact Referred To Contact Family Practice / FAMILY MEDICINE Diagnoses 6 month follow up Procedures EST PATIENT Negrito Wilburn MD [address] [place] [address] Negrito Wilburn MD [address] [place] [address] Referral ID Status Reason Start Date Expiration Date V isits Requested Visits Authorized [id number] Closed Financial Clearance Required - OON Payor Financial Clearance Not Required Patient Cleared - INN Insurance Found 06/14/2021 09/17/2021 1 1 Reason Comments Results Reason Comments Results Reason Comments Lower extremity circulation Left foot Reason Comments report findiings Reason Comments Consult Left Breast Specialty Diagnoses / Procedures Referred By Contac t Referred To Contact General Surgery / GENERAL SURGERY Diagnoses left breast calcs patient requested end of month Procedures NEW DDI BREAST Negrito Wilburn MD [address] [place] [address] Trudy Greco MD [address] [place] [address] Referral ID Status Reason Start Date Expiration Date Visits Re quested Visits Authorized [id number] Closed 05/18/2022 09/17/2022 1 1 Reason Comments Results Reason Comments Refill Request Reason Comments Shortness of Breath X 4 months Chest Pain X 4 months under the left breast Reason Comments Radiology NM Specialty Diagnoses / Procedures Referred By Contac t Referred To Contact MOLECULAR & FUNCTIONAL IMAGING Diagnoses Chest pain, unspecified type Procedures NM CARDIAC PERF STRESS/PHARM MYOCARDIAL SPECT MULTIPLE STUDIES Negrito Wilburn MD [address] [place] [address] Molecular & Functional Imaging [address] [place] [address] Referral ID Status Reason Start Date Expiration Date V isits Requested Visits Authorized [id number] Closed Auto-Generate d Referral 02/16/2023 03/17/2024 1 1 Reason Comments Cough fatigue, diarrhea of f and on x 2 weeks Reason Onset Date Comments Refill Request 08/25/2023 Reason Comments Urinary Problem Reason Comments Acute Visit urinary incont. Reason Comments Results Urine Reason Comments Patient Question Cough urinary incontinence and medication ques tion Reason Comments Acute Visit cough Reason Comments Results Covid, Flu, RSV Reason Comments rax referral to outside Reason Comments UTI Urinary frequency x 5days Reason Comments Clinical Update Reason Comments Consult Colonoscopy 5 year f ollow up Specialty Diagnoses / Procedures Referred By Contac t Referred To Contact General Surgery Diagnoses Screening for colon cancer Procedures CONSULT TO GENERAL SURGERY OFFICE/OUTPATIENT [facility] 60-74 MINUTES Negrito Wilburn MD [address] [place] [address] Referral ID Status Reason Start Date Expiration Date V isits Requested Visits Authorized [id number] Closed PCP Requested Referral 09/19/2023 09/18/2024 1 1 Reason Comments Med Change Request Reason Comments Opened In Error Reason Comments Recheck Follow up Reason Comments CARD New Patient Consult CT 10/16/23 - Mo d-severe coronary artery calcificationC/O SOB and has COPD (dx 3 years ago) Specialty Diagnoses / Procedures Referred By Contac t Referred To Contact Cardiology Diagnoses Coronary artery calcification seen on CAT scan Procedures CONSULT TO CARDIOLOGY OFFICE/OUTPATIENT [facility] MDM 60 MINUTES Tatyana Perez, KALEB.[employer]PER[employer] [address] [place] [address] Referral ID Status Reason Start Date Expiration Date V isits Requested Visits Authorized [id number] Closed PCP Requested Referral 10/19/2023 10/18/2024 1 1 Reason Comments Appointment Reason Onset Date Comments Refill Request 03/13/2024 Reason Onset Date Comments Refill Request 03/20/2024 Reason Onset Date Comments Refill Request 05/08/2024 Reason Onset Date Comments Population Health Navigation Outreach 05/15/2024 [employer] Reason Comments Wellness Visit Reason Onset Date Comments Population Health Navigation Outreach 07/18/2024 [facility] [employer] PCSA Reason Comments 01/09/2024 colon asc Reason Onset Date Comments ACM CARLOS RN 07/29/2024 Medication Ad herence Review at request of payer Reason Onset Date Comments Population Health Navigation Outreach 08/19/2024 [facility] [employer] PCSA Reason Onset Date Comments Refill Request 09/24/2024 Reason Comments F/U 6 months Reason Onset Date Comments Results 12/04/2024 Reason Onset Date Comments Refill Request 01/08/2025 Reason Onset Date Comments mamm results 01/13/2025 Reason Comments Mammogram Result Call Back Reason Comments Rash Started approx 5 day s ago Reason Onset Date Comments Results 01/29/2025 Reason Comments Cough Has been coughing si nce last fall, is having coughing fits and seems to be getting worse UTI Urgency, frequency, with small amount. Blood noticed x1. Reason Onset Date Comments mamm results 02/19/2025 Reason Onset Date Comments Refill Request 03/13/2025 Care Teams (unrecognized sec tion and content) Youth Accommodation Support Worker Relationship Specialty Start Date End Date Negrito Wilburn MD [address] [place], [place] [id number] PCP - General Family Practice 08/20/18 Youth Accommodation Support Worker Relationship Specialty Start Date End Date Negrito Wilburn MD [address] [place], [place] [id number] PCP - General Family Practice 08/20/18 Youth Accommodation Support Worker Relationship Specialty Start Date End Date Negrito Wilburn MD [address] [place], [place] [id number] PCP - General Family Practice 08/20/18 Youth Accommodation Support Worker Relationship Specialty Start Date End Date Negrito Wilburn MD [address] [place], [place] [id number] PCP - General Family Practice 08/20/18 Youth Accommodation Support Worker Relationship Specialty Start Date End Date Negrito Wilburn MD [address] [place] [address] PCP - General Family Practice 08/20/18 Youth Accommodation Support Worker Relationship Specialty Start Date End Date Negrito Wilburn MD [address] [place] [address] PCP - General Family Practice 08/20/18 Youth Accommodation Support Worker Relationship Specialty Start Date End Date Negrito Wilburn MD [address] [place] [address] PCP - General Family Practice 08/20/18 Youth Accommodation Support Worker Relationship Specialty Start Date End Date Negrito Wilburn MD [address] [place] [address] PCP - General Family Practice 08/20/18 Youth Accommodation Support Worker Relationship Specialty Start Date End Date Negrito Wilburn MD [address] [place] [address] PCP - General Family Practice 08/20/18 Youth Accommodation Support Worker Relationship Specialty Start Date End Date Negrito Wilburn MD [address] [place] [address] PCP - General Family Practice 08/20/18 Youth Accommodation Support Worker Relationship Specialty Start Date End Date Negrito Wilburn MD [address] [place] [address] PCP - General Family Practice 08/20/18 Youth Accommodation Support Worker Relationship Specialty Start Date End Date Negrito Wilburn MD [address] [place] [address] PCP - General Family Medicine 08/20/18 Youth Accommodation Support Worker Relationship Specialty Start Date End Date Negrito Wilburn MD [address] [place] [address] PCP - General Family Medicine 08/20/18 Youth Accommodation Support Worker Relationship Specialty Start Date End Date Negrito Wilburn MD [address] [place] [address] PCP - General Family Medicine 08/20/18 Team Status: Active Member Role Status Dates Dr. Roegr Wilburn MD Family Provider Active Dr. Roger Wilburn MD Primary Care Provider Acti ve Team Status: Inactive Member Role Status Dates Dr. Roger Wilburn MD Primary Care Provider Acti ve Dr. Omer Hall MD Attending Provider, Referring [facility] Active Youth Accommodation Support Worker Relationship Specialty Start Date End Date Negrito Wilburn MD [address] [place] [address] PCP - General Family Medicine 08/20/18 Youth Accommodation Support Worker Relationship Specialty Start Date End Date Negrito Wilburn MD [address] [place] [address] PCP - General Family Medicine 08/20/18 Youth Accommodation Support Worker Relationship Specialty Start Date End Date Negrito Wilburn MD [address] [place] [address] PCP - General Family Medicine 08/20/18 Youth Accommodation Support Worker Relationship Specialty Start Date End Date Negrito Wilburn MD [address] [place] [address] PCP - General Family Medicine 08/20/18 Youth Accommodation Support Worker Relationship Specialty Start Date End Date Negrito Wilburn MD [address] [place] [address] PCP - General Family Medicine 08/20/18 Youth Accommodation Support Worker Relationship Specialty Start Date End Date Negrito Wilburn MD [address] [place] [address] PCP - General Family Medicine 08/20/18 Youth Accommodation Support Worker Relationship Specialty Start Date End Date Negrito Wilburn MD [address] [facility] [place] [address] PCP - General Family Medicine 08/20/18 Youth Accommodation Support Worker Relationship Specialty Start Date End Date Negrito Wilburn MD [address] [place] [address] PCP - General Family Medicine 08/20/18 Youth Accommodation Support Worker Relationship Specialty Start Date End Date Negrito Wilburn MD [address] [facility] [place] [address] PCP - General Family Medicine 08/20/18 Youth Accommodation Support Worker Relationship Specialty Start Date End Date Negrito Wilburn MD [address] [place] [address] PCP - General Family Medicine 08/20/18 Youth Accommodation Support Worker Relationship Specialty Start Date End Date Negrito Wilburn MD [address] [place] [address] PCP - General Family Medicine 08/20/18 Youth Accommodation Support Worker Relationship Specialty Start Date End Date Negrito Wilburn MD [address] [place] [address] PCP - General Family Medicine 08/20/18 Youth Accommodation Support Worker Relationship Specialty Start Date End Date Negrito Wilburn MD [address] [place] [address] PCP - General Family Medicine 08/20/18 Youth Accommodation Support Worker Relationship Specialty Start Date End Date Negrito Wilburn MD [address] [place] [address] PCP - General Family Medicine 08/20/18 Youth Accommodation Support Worker Relationship Specialty Start Date End Date Negrito Wilburn MD [address] [place] [address] PCP - General Family Medicine 08/20/18 Youth Accommodation Support Worker Relationship Specialty Start Date End Date Negrito Wilburn MD [address] [place] [address] PCP - General Family Medicine 08/20/18 Youth Accommodation Support Worker Relationship Specialty Start Date End Date Negrito Wilburn MD [address] [place] [address] PCP - General Family Medicine 08/20/18 Youth Accommodation Support Worker Relationship Specialty Start Date End Date Negrito Wilburn MD [address] [place] [address] PCP - General Family Medicine 08/20/18 Youth Accommodation Support Worker Relationship Specialty Start Date End Date Negrito Wilburn MD [address] [place] [address] PCP - General Family Medicine 08/20/18 Youth Accommodation Support Worker Relationship Specialty Start Date End Date Negrito Wilburn MD [address] [place] [address] PCP - General Family Medicine 08/20/18 Youth Accommodation Support Worker Relationship Specialty Start Date End Date Negrito Wilburn MD [address] [place] [address] PCP - General Family Medicine 08/20/18 Youth Accommodation Support Worker Relationship Specialty Start Date End Date Negrito Wilburn MD [address] [place] [address] PCP - General Family Medicine 08/20/18 Youth Accommodation Support Worker Relationship Specialty Start Date End Date Negrito Wilburn MD [address] [place] [address] PCP - General Family Medicine 08/20/18 Youth Accommodation Support Worker Relationship Specialty Start Date End Date Negrito Wilburn MD [address] [place] [address] PCP - General Family Medicine 08/20/18 Lorenza Major DO [address] [place] [address] Cardiology 03/11/24 Youth Accommodation Support Worker Relationship Specialty Start Date End Date Negrito Wilburn MD [address] [place] [address] PCP - General Family Medicine 08/20/18 Lorenza Major DO [address] [place] [address] Cardiology 03/11/24 Youth Accommodation Support Worker Relationship Specialty Start Date End Date Negrito Wilburn MD [address] [place] [address] PCP - General Family Medicine 08/20/18 Lorenza Major DO [address] [place] [address] Cardiology 03/11/24 Youth Accommodation Support Worker Relationship Specialty Start Date End Date Negrito Wilburn MD [address] [place] [address] PCP - General Family Medicine 08/20/18 Lorenza Major DO [address] [place] [address] Cardiology 03/11/24 Youth Accommodation Support Worker Relationship Specialty Start Date End Date Negrito Wilburn MD [address] [place] [address] PCP - General Family Medicine 08/20/18 Lorenza Major DO [address] [place] [address] Cardiology 03/11/24 Youth Accommodation Support Worker Relationship Specialty Start Date End Date Negrito Wilburn MD [address] [place] [address] PCP - General Family Medicine 08/20/18 Lorenza Major DO [address] [place] [address] Cardiology 03/11/24 Youth Accommodation Support Worker Relationship Specialty Start Date End Date Negrito Wilburn MD [address] [place] [address] PCP - General Family Medicine 08/20/18 Lorenza Major DO [address] [place] [address] Cardiology 03/11/24 Youth Accommodation Support Worker Relationship Specialty Start Date End Date Negrito Wilburn MD [address] [place] [address] PCP - General Family Medicine 08/20/[address] [facility] [place] [address] Cardiology 03/11/24 Youth Accommodation Support Worker Relationship Specialty Start Date End Date Negrito Wilburn MD [address] [place] [address] PCP - General Family Medicine 08/20/[address] [facility] [place] [address] Cardiology 03/11/24 Youth Accommodation Support Worker Relationship Specialty Start Date End Date Negrito Wilburn MD [address] [place] [address] PCP - General Family Medicine 08/20/[address] [facility] [place] [address] Cardiology 03/11/24 Youth Accommodation Support Worker Relationship Specialty Start Date End Date Negrito Wilburn MD [address] [place] [address] PCP - General Family Medicine 08/20/18 Youth Accommodation Support Worker Relationship Specialty Start Date End Date Negrito Wilburn MD [address] [place] [address] PCP - General Family Medicine 08/20/[address] [facility] [place] [address] Cardiology 03/11/24 Youth Accommodation Support Worker Relationship Specialty Start Date End Date Negrito Wilburn MD [address] [place] [address] PCP - General Family Medicine 08/20/18 Lorenza Major DO [address] [place] [address] Cardiology 03/11/24 Youth Accommodation Support Worker Relationship Specialty Start Date End Date Negrito Wilburn MD [address] [place] [address] PCP - General Family Medicine 08/20/18 Lorenza Major DO [address] [place] [address] Cardiology 03/11/24 Youth Accommodation Support Worker Relationship Specialty Start Date End Date Negrito Wilburn MD [address] [place] [address] PCP - General Family Medicine 08/20/18 Lorenza Major DO [address] [place] [address] Cardiology 03/11/24 PodlogarJessica APRN.CNP [address] [place] [address] Awning Hanger Supervisor Family Medicine 08/24/24 Youth Accommodation Support Worker Relationship Specialty Start Date End Date Negrito Wilburn MD [address] [place], [place] [id number] PCP - General Family Medicine 08/20/18 Lorenza Major DO [address] [place], [place] [id number] Cardiology 03/11/24 Podlogar, KALEB Lopez.COLD ROLLING SUPERVISOR [address] [place] [address] Awning Hanger Supervisor Family Medicine 08/24/24 Youth Accommodation Support Worker Relationship Specialty Start Date End Date Negrito Wilburn MD [address] [place] [address] PCP - General Family Medicine 08/20/[address] [facility] [place], [place] [id number] Cardiology 03/11/24 Podlogar, Jessica, DESTINATION SIGN REPAIRER.COLD ROLLING SUPERVISOR [address] [place] [address] Awning Hanger Supervisor Family Medicine 08/24/24 Jeanne Cotton APRN.COLD ROLLING SUPERVISOR [address] [facility] [address] Awning Hanger Supervisor Family Medicine 11/29/24 Youth Accommodation Support Worker Relationship Specialty Start Date End Date Negrito Wilburn MD [address] [place] [address] PCP - General Family Medicine 08/20/18 Lorenza Major DO [address] [place], [place] [id number] Cardiology 03/11/24 Podlogar, Jessica DESTINATION SIGN REPAIRER.COLD ROLLING SUPERVISOR [address] [place] [address] Awning Hanger Supervisor Family Medicine 08/24/24 Jeanne Cotton APRN.COLD ROLLING SUPERVISOR [address] [place] [address] [facility] 11/29/24 Youth Accommodation Support Worker Relationship Specialty Start Date End Date Negrito Wilburn MD [address] [place] [address] PCP - General Family Medicine 08/20/18 Lorenza Major DO [address] [place] [id number] Cardiology 03/11/24 Podlogar, ALICIA LopezN.COLD ROLLING SUPERVISOR [address] [place] [address] [facility]ning [facility] 08/24/24 Jeanne Cotton APRN.COLD ROLLING SUPERVISOR [address] [place] [address] [facility] 11/29/24 Youth Accommodation Support Worker Relationship Specialty Start Date End Date Negrito Wilburn MD [address] [place] [address] PCP - General Family Medicine 08/20/18 Lorenza Major DO [address] [place], [place] [id number] Cardiology 03/11/24 Podlogar, KALEB Lopez.COLD ROLLING SUPERVISOR [address] [place] [address] Awning Hanger Supervisor Family Medicine 08/24/24 Jeanne Cotton APRN.COLD ROLLING SUPERVISOR [address] [place] [address] [facility]ning [facility]anger [facility] 12/09/24 Youth Accommodation Support Worker Relationship Specialty Start Date End Date Negrito Wilburn MD [address] [place] [address] PCP - General Family Medicine 08/20/18 Lorenza Major DO [address] [place], [place] [id number] Cardiology 03/11/24 Podlogar, Jessica, DESTINATION SIGN REPAIRER.COLD ROLLING SUPERVISOR [address] [place] [address] Awning Hanger Supervisor Family Medicine 08/24/24 Jeanne Cotton, DESTINATION SIGN REPAIRER.COLD ROLLING SUPERVISOR [address] [place] [address] Awning [facility]anger [facility] [place] 12/09/24 Youth Accommodation Support Worker Relationship Specialty Start Date End Date Negrito Wilburn MD [address] [place], [place] [address] PCP - General Family Medicine 08/20/18 Lorenza Major DO [address] [place], [place] [id number] Cardiology 03/11/24 Podlogar, Jessica DESTINATION SIGN REPAIRER.COLD ROLLING SUPERVISOR [address] [place] [address] Awning Hanger Supervisor Family Medicine 08/24/24 Jeanne Cotton DESTINATION SIGN REPAIRER.COLD ROLLING SUPERVISOR [address] [place] [address] Awning Hanger Supervisor Family Medicine 12/09/24 Youth Accommodation Support Worker Relationship Specialty Start Date End Date Negrito Wilburn MD [address] [place] [address] PCP - General Family Medicine 08/20/18 Lorenza Major DO [address] [place] [id number] Cardiology 03/11/24 Podlogar, Jessica, DESTINATION SIGN REPAIRER.COLD ROLLING SUPERVISOR [address] [place] [address] Awning Hanger Supervisor Family Medicine 08/24/24 Jeanne Cotton DESTINATION SIGN REPAIRER.COLD ROLLING SUPERVISOR [address] [place] [address] Awning Hanger Supervisor Family Medicine 12/09/24 Youth Accommodation Support Worker Relationship Specialty Start Date End Date Negrito Wilburn MD [address] [place] [address] PCP - General Family Medicine 08/20/18 Lorenza Major DO [address] [place] [address] Cardiology 03/11/24 Podlogar, Jessica, DESTINATION SIGN REPAIRER.COLD ROLLING SUPERVISOR [address] [place] [address] Awning Hanger Supervisor Family Medicine 08/24/24 Jeanne Cotton DESTINATION SIGN REPAIRER.COLD ROLLING SUPERVISOR [address] [place] [address] Awning Hanger Supervisor Family Medicine 12/09/24 Youth Accommodation Support Worker Relationship Specialty Start Date End Date Negrito Wilburn MD [address] [place] [address] PCP - General Family Medicine 08/20/18 Lorenza Major DO [address] [place] [address] Cardiology 03/11/24 Podlogar, Jessica, DESTINATION SIGN REPAIRER.COLD ROLLING SUPERVISOR [address] [place] [address] Awning Hanger Supervisor Family Medicine 08/24/24 Youth Accommodation Support Worker Relationship Specialty Start Date End Date Negrito Wilburn MD [address] [place] [address] PCP - General Family Medicine 08/20/18 Lorenza Major DO [address] [place] [address] Cardiology 03/11/24 Podlogar, Jesscia, DESTINATION SIGN REPAIRER.COLD ROLLING SUPERVISOR [address] [place] [address] Awning Hanger Supervisor Family Medicine 08/24/24 Youth Accommodation Support Worker Relationship Specialty Start Date End Date Negrito Wilburn MD [address] [place] [address] PCP - General Family Medicine 08/20/18 Lorenza Major DO [address] [place] [address] Cardiology 03/11/24 Podlogar, Jessica, DESTINATION SIGN REPAIRER.COLD ROLLING SUPERVISOR [address] [place] [address] Awning Hanger Supervisor Family Medicine 08/24/24 Youth Accommodation Support Worker Relationship Specialty Start Date End Date Negrito Wilburn MD [address] [place] [address] PCP - General Family Medicine 08/20/[address] [facility] [place] [address] Cardiology 03/11/24 Podlogar, Jessica, DESTINATION SIGN REPAIRER.COLD ROLLING SUPERVISOR [address] [place] [address] Awning Hanger [facility] [place] 08/24/24 Youth Accommodation Support Worker Relationship Specialty Start Date End Date Negrito Wilburn MD [address] [place] [address] PCP - General Family Medicine 08/20/[address] [facility] [place] [address] Cardiology 03/11/24 Podlogar, Jessica, DESTINATION SIGN REPAIRER.COLD ROLLING SUPERVISOR [address] [place] [address] Awning Hanger Supervisor Family Medicine 08/24/24 Youth Accommodation Support Worker Relationship Specialty Start Date End Date Negrito Wilburn MD [address] [place] [address] PCP - General Family Medicine 08/20/18 Lorenza Major DO [address] [place] [address] Cardiology 03/11/24 Podlogar, Jessica DESTINATION SIGN REPAIRER.COLD ROLLING SUPERVISOR [address] [place] [address] Awning Hanger [facility] Medicine 08/24/24 Youth Accommodation Support Worker Relationship Specialty Start Date End Date Negrito Wilburn MD [address] [place] [address] PCP - General Family Medicine 08/20/18 Lorenza Major DO [address] [place], [place] [id number] Cardiology 03/11/24 Podlogar, Jessica, DESTINATION SIGN REPAIRER.COLD ROLLING SUPERVISOR [address] [place] [address] Awning Hanger Supervisor Family Medicine 08/24/24 Jeanne Cotton DESTINATION SIGN REPAIRER.COLD ROLLING SUPERVISOR [address] [place] [address] Awning Hanger [facility] Medicine 02/27/25 Youth Accommodation Support Worker Relationship Specialty Start Date End Date Negrito Wilburn MD [address] [place] [address] PCP - General Family Medicine 08/20/18 Lorenza Major DO [address] [place], [place] [id number] Cardiology 03/11/24 Podlogar, Jessica DESTINATION SIGN REPAIRER.COLD ROLLING SUPERVISOR [address] [place] [address] Awning Hanger Supervisor Family Medicine 08/24/24 Jeanne Cotton APRN.COLD ROLLING SUPERVISOR [address] [place] [address] Awning Hanger Supervisor Family [facility] 02/27/25 Youth Accommodation Support Worker Relationship Specialty Start Date End Date Negrito Wilburn MD [address] [place] [address] PCP - General Family Medicine 08/20/18 Lorenza Major DO [address] [place] [address] Cardiology 03/11/24 Podlogar, Jessica, DESTINATION SIGN REPAIRER.COLD ROLLING SUPERVISOR [address] [place] [address] Awning Hanger Supervisor Family Medicine 08/24/24 Jeanne Cotton DESTINATION SIGN REPAIRER.COLD ROLLING SUPERVISOR [address] [place] [address] Awning Hanger [facility] [place] 02/27/25 Youth Accommodation Support Worker Relationship Specialty Start Date End Date Negrito Wilburn MD [address] [place] [address] PCP - General Family Medicine 08/20/18 Lorenza Major DO [address] [place] [address] Cardiology 03/11/24 Podlogar, Jessica, DESTINATION SIGN REPAIRER.COLD ROLLING SUPERVISOR [address] [place] [address] Awning Hanger Supervisor Family Medicine 08/24/24 Jeanne Cotton DESTINATION SIGN REPAIRER.COLD ROLLING SUPERVISOR [address] [place], [place] [id number] [phone] Awning Hanger Supervisor Family Medicine 12/09/24 02/02/25 Jeanne Cotton, DESTINATION SIGN REPAIRER.COLD ROLLING SUPERVISOR [address] [place], [place] [address] [facility] 02/27/25 Youth Accommodation Support Worker Relationship Specialty Start Date End Date Negrito Wilburn MD [address] [place], [place] [id number] PCP - General Family Medicine 08/20/18 Lorenza Major DO [address] [place], [place] [id number] Cardiology 03/11/24 PodlogarJessica APRN.COLD ROLLING SUPERVISOR [address] [place], [place] [id number] [facility] 08/24/24 Jeanne Cotton, DESTINATION SIGN REPAIRER.COLD ROLLING SUPERVISOR [address] [place], [place] [id number] [facility] 12/09/24 02/02/25 Jeanne Cotton, KALEB.COLD ROLLING SUPERVISOR [address] [place], [place] [phone] [facility] 02/27/25 Goals (unrecognized section and content) Goals may be documented in a n alternate sectionGoals may be documented in an alternate section INFORMATION SOURCE (unrecogn ized section and content) DATE CREATED AUTHOR 10/21/2023 [facility] nter DATE CREATED AUTHOR AUTHOR'S ORGANIZ ATION 03/13/2024 [facility] DATE CREATED AUTHOR AUTHOR'S ORGANIZ ATION 11/23/2024 [facility] DATE CREATED AUTHOR AUTHOR'S ORGANIZ ATION 03/11/2025 [facility] FOR RECORDS PERTAINING TO PATIENTS WHO ARE OR HAVE BEEN ENROLLED IN A CHEMICAL DEPENDENCY/SUBSTANCEABUSE PROGRAM, SOME INFORMATION MAY BE OMITTED. This clinical summary was aggregated from multiple sources. Caution should be exercised in using it in the provision of clinical care. This summary normalizes information from multiple sources, and as a consequence, information in this document may materially change the coding, format and clinical context of patient data. In addition, data may be omitted in some cases. CLINICAL DECISIONS SHOULD BE BASED ON THE PRIMARY CLINICAL RECORDS. [facility] [employer] [facility]. provides no warranty or guarantee of the accuracy or completeness of information in this document.
[2025-04-03 00:03] VITALS: BP 144/76; PULSE 73; RESP 16; TEMP 36.7; O2SAT 100
== END 2025-04-03 02:17 | disposition home or self-care (01) ==
LOC: ED 23:50
PROVIDERS: Emergency Provider Emergency Medicine; PCP Family Medicine; Visit Provider Emergency Medicine
DX: M62.830 Muscle spasm of back (principal); I10 Essential (primary) hypertension; E78.5 Hyperlipidemia, unspecified; F17.210 Nicotine dependence, cigarettes, uncomplicated; Z79.899 Other long term (current) drug therapy
CPT/HCPCS: 96372; 99285

== ENCOUNTER → 2025-04-08 | Outpatient (CLI) | payer MEDICARE, SELFPAY ==
--- NOTE | 2025-04-08 14:35 | RAD_ITS ---
PROCEDURE: CERV SPINE 2 OR 3 VIEWS 04/08/2025 REASON FOR EXAM: SPONDYLOSIS WITHOUT MYELOPATHY OR RADICULOPATHY, CERVICAL REGION TECHNIQUE: CERV SPINE 2 OR 3 VIEWS COMPARISON: None. FINDINGS: No evidence of acute fracture or dislocation. [id number] degenerative changes of the visualized spine. Grade 1 anterolisthesis of C3 on C4. RAD/Cerv Spine 2 or 3 Views IMPRESSION: Spondylosis. Spondylolisthesis. Reading Location: [id number]
== END | disposition home or self-care (01) ==
LOC: RAD 14:28
PROVIDERS: PCP Family Medicine; Referring Provider Anesthesiology Pain Medicine; Visit Provider Anesthesiology Pain Medicine
DX: M47.812 Spondylosis without myelopathy or radiculopathy, cervical region (principal)
CPT/HCPCS: 72040

== ENCOUNTER → 2025-06-03 | Outpatient (CLI) | payer MEDICARE, SELFPAY ==
[2025-06-03 18:06] LABS: Barbiturate Urine NEGATIVE (< 200 ng/mL); Benzodiazepine Urine NEGATIVE (< 200 ng/mL); PCP Urine NEGATIVE (< 25 ng/mL); THC Urine NEGATIVE (< 50 ng/mL)
--- OUTSIDE RECORDS SUMMARY | 2025-06-03 23:16 | XMS RPT_ITS | CCD ---
Author Organization [facility] Care Team Providers Care Medication Manager Name Role Phone Negrito Wilburn MD Primary Care Provider Negrito Wilburn MD Primary Care Provider Lorenza Major DO Unavailable LORENZA MAJOR Attending Unavailab TATYANA Rodriguez Referring Unavailable NEGRITO WILBURN Primary Care Unavailab le Podlogar DIGITAL TECHNICIAN.INSPECTOR HANDBAG FRAMES, Jessica Unavailable [place] DIGITAL TECHNICIAN.INSPECTOR HANDBAG FRAMESJeanne Unavailable [place] DIGITAL TECHNICIAN.INSPECTOR HANDBAG FRAMES, Jeanne Unavailable [place] DIGITAL TECHNICIAN.INSPECTOR HANDBAG FRAMES, Jeanne Unavailable [place] DIGITAL TECHNICIAN.INSPECTOR HANDBAG FRAMES Jeanne Unavailable Cosmo BREWSTER, Dr. Duran Primary Care Provider Dr. Laz James DO Emergency Provider Dr. Roger Wilburn MD Primary Care Provider Dr. Josee Maynard MD Attending Provider Dr. Laz James DO Attending Provider Dr. Omer Hall MD Attending Provider Dr. Omer Hall MD Referring Provider Kate Rivas Attending Unavailable Roger Wilburn Referring Unavailable Roger Wilburn Primary Care Unavailable George Rowland Attending Unavailable Roger Wilburn Primary Care Unavailable Omer Hall Attending Unavailable Omer Hall Referring Unavailable Bursley, Roger Primary Care Unavailable Kate Rivas Attending Unavailable Kate Rivas Referring Unavailable Bursley, Roger Primary Care Unavailable Omer Hall Attending Unavailable Omer Hall Referring Unavailable Bursley, Roger Primary Care Unavailable Bursley, Roger Primary Care Unavailable Laz James Attending Unavailable JEANNE COTTON Referring Unavailable BURSLEY, CHRISTOPHER B Primary Care Unavailab le BURSLEY, CHRISTOPHER B Primary Care Unavailab le PODLOGAR, JESSICA Referring Unavailable MATTLEYTAINAER B Attending Unavailab le BURSLEY, CHRISTOPHER B Primary Care Unavailab le BURSLEY, CHRISTMARLENER B Referring Unavailab le BURSLEY, CHRISTOPHER B Primary Care Unavailab le PODLOGAR, JESSICA Referring Unavailable BURSLEY, ISABELOPHER B Primary Care Unavailab le PODLOGAR, JESSICA Referring Unavailable BURSLEY, CHRISTOPHER B Primary Care Unavailab le HARPSTERDAOA Referring Unavailable MATTLEY, ISABELOPHER B Primary Care Unavailab le HARPSTERTATYANA Attending Unavailable HARPSTERTATYANA Referring Unavailable BURSLEY, CHRISTOPHER B Primary Care Unavailab le BURSLEY, CHRISTOPHER B Primary Care Unavailab le PODLOGAR, JESSICA Attending Unavailable MATTLEY, ISABELOPHER B Primary Care Unavailab le PODLOGAR, JESSICA Referring Unavailable BURSLEY, CHRISTOPHER B Primary Care Unavailab le PODLOGAR, JESSICA Referring Unavailable BURSLEY, CHRISTOPHER B Primary Care Unavailab le PODLOGAR, JESSICA Attending Unavailable COSMO, ISABELOPHER B Primary Care Unavailab le PODLOGAR, JESSICA Attending Unavailable NEGRITO WILBURN B Attending Unavailab le BURSLEY, CHRISTOPHER B Primary Care Unavailab le BURSLEY, CHRISTOPHER B Primary Care Unavailab le PODLOGAR, JESSICA Referring Unavailable BURSLEY, CHRISTOPHER B Primary Care Unavailab le PODLOGAR, JESSICA Referring Unavailable BURSLEY, CHRISTOPHER B Primary Care Unavailab le PODLOGAR, JESSICA Referring Unavailable Allergies Allergy Classification Reported Allergen(s) Allergy Type Date of Onset Reaction(s) Facility Contrast Media (1 source) Contrast media Substance Allergy 2 Swelling [facility] HMG-CoA Reductase Inhibitors (statins) (1 source) atorvastatin Drug Allergy Other: See Comments [facility] (20 sources) atorvastatin; Translations: [ATORVASTATIN CALCIUM] Drug Allergy Other: See Comments [facility] (20 sources) Contrast media; Translations: [CONTRAST DYE] Drug Allergy 2 Swelling [facility] (4 sources) atorvastatin Drug Allergy 9 Other [facility] Comment on above: YELLOWING OF SKIN? (4 sources) Triiodobenzoic Acids Allergy to substance 9 Angioedema [facility] (3 sources) cat dander; Translations: [cat dander] Allergy to substance 5 Other [facility] (1 source) atorvastatin Drug Allergy 5 [facility] (1 source) Iodinated Contrast Media Drug allergy (disorder) 5 [facility] Medications Current Medications Medication Drug Class(es) Dates Sig (Normalized) Sig (Original) acetaminophen 325 mg / oxyCODONE hydrochloride 5 mg oral tablet (2 sources) Opioid Agonist Start: 04-02-2025 take 1 tablet by mouth every six hours as needed for pain Oxycodone-Acetami nophen (Percocet) 5-325 mg tablet Active 1 {tbl} PO EVERY 6 HOURS as needed for pain 12 3 0 April 02, 2025 Spasm of cervical paraspinous muscle Other muscle spasm [id number] 200 actuat albuterol 0.09 mg/actuat metered dose [...] above: Take 1 tablet by cee th two times a day for 7 days. [...] formoterol (20 sources) Corticosteroid, beta2-Adrenergic Agonist Start: 05-01-2025 End: 07-30-2025 take 2 puff(s) by inhalation twice daily budesonide-formot wai (SYMBICORT) 160-4.5 mcg/actuation inhaler Indications: Chronic obstructive pulmonary disease, unspecified COPD type (HCC) Inhale 2 puffs as instructed two times a day. 1 each 2 05/01/2025 07/30/2025 Active Start: 01-08-2025 End: 05-01-2025 take 2 puff(s) by inhalation twice daily budesonide-formoterol (SYMBICORT) 80-4.5 mcg/actuation inhaler Indications: Chronic obstructive pulmonary disease, unspecified COPD type (HCC) Inhale 2 puffs as instructed two times a day. 14 g 5 01/08/2025 05/01/2025 Discontinued (Course of therapy completed) Start: 01-08-2025 End: 07-07-2025 take 2 puff(s) [...] tablet 5 09/03/2021 03/07/2022 Discontinued Start: 12-11-2018 End: 10-07-2024 take 1 tablet by mouth twice daily Bupropion Hcl (Wellbutrin Sr) 100 mg tablet sustained-release 12 hr Discontinued 100 mg PO TWICE A DAY December 11, 2018 12:00am October 07, 2024 2:04pm Comment on above: Take 1 tablet by [facility] once daily. cephalexin 500 mg oral capsule [...] on above: Take 1 capsule by mo [facility] two times a day for 7 days. cholecalciferol 0.05 mg oral capsule (20 sources) Vitamin D Start: 015 take 1 tablet by mouth once daily Cholecalciferol, Vitamin D3, 2,000 unit cap Take 1 tablet by mouth once daily. 0 02/25/2015 Active Comment on above: Take 1 tablet by cee once daily. diazePAM 5 mg oral tablet (2 sources) Benzodiazepine Start: take 1 tablet by mouth three times daily as needed for muscle spasms Diazepam (Valium) 5 mg tablet Active 5 mg PO THREE TIMES A DAY as needed for muscle spasm 15 5 0 April 02, 2025 11:41pm Spasm of cervical paraspinous muscle Other muscle spasm DULoxetine 60 mg delayed release oral capsule (20 sources) Serotonin and Norepinephrine Reuptake Inhibitor Start: 019 End: take 1 capsule by mouth once daily DULoxetine (CYMBALTA) 60 mg capsule Indications: Recurrent major depressive disorder, in partial remission Take 1 capsule by mouth once daily. patient assistance 90 capsule 1 03/14/2025 09/10/2025 Active Comment on above: Take 1 capsule by mo [facility] once daily. patient assistance levothyroxine sodium 0.025 mg oral tablet (20 sources) l-Thyroxine Start: End: take 1 tablet by mouth once daily levothyroxine (SYNTHROID) 25 mcg tablet Indications: Elevated TSH Take 1 tablet by mouth once daily. 90 tablet 2 03/14/2025 Active lisinopril 10 mg oral tablet (20 sources) Angiotensin Converting Enzyme Inhibitor Start: take 5 mg by mouth once daily Lisinopril 10 mg tablet Active 5 mg PO daily October 07, 2024 1:00am Start: 08-28-2023 End: 09-10-2025 take 0.5 tablet by mouth once daily lisinopril (ZESTRIL) 10 mg tablet Indications: Essential hypertension Take 0.5 tablets by mouth once daily. 45 tablet 1 03/14/2025 09/10/2025 Active Start: 09-02-2022 End: 08-25-2023 take 0.5 tablet [...] 45 tablet 3 09/03/2021 Active Start: 12-11-2018 End: 10-07-2024 take 1 tablet by mouth once daily Lisinopril 5 mg tablet Discontinued 5 mg PO DAILY December 11, 2018 12:00am October 07, 2024 2:04pm Comment on above: Take 0.5 tablets by mouth once daily. metFORMIN hydrochloride 500 mg oral tablet (20 sources) Biguanide Start: End: take 1 tablet by mouth twice daily [...] above: Take 1 tablet by cee th twice daily with meals. . Take 1 tablet by cee th two times a day with meals. . montelukast 10 mg oral tablet (7 sources) Leukotriene Receptor Antagonist Start: 04-17-20 End: 05-14-20 take 1 tablet by mouth once daily at bedtime montelukast (SINGULAIR) 10 mg tablet TAKE 1 TABLET BY MOUTH EVERYDAY AT BEDTIME 90 tablet 1 05/14/2025 Active nitroglycerin 0.4 mg sublingual tablet (20 sources) Nitrate Vasodilator Start: 02-17-20 nitroglycerin sublingual (NITROSTAT) 0.4 mg SL tablet Indications: Chest pain, unspecified type Dissolve 1 tablet under the tongue every 5 minutes as needed for chest pain. 25 tablet 02/16/2023 Active Comment on above: Dissolve 1 tablet un raoul the tongue every 5 minutes as needed for chest pain. omeprazole 40 mg delayed release oral capsule (20 sources) Proton Pump Inhibitor Start: 08-28-20 End: 09-10-20 take 1 capsule by mouth once daily omeprazole (PRILOSEC) 40 mg capsule Indications: Gastroesophageal reflux disease, unspecified whether esophagitis present Take 1 capsule by mouth once daily. 90 capsule 1 03/14/2025 09/10/2025 Active Start: 09-02-2022 End: 08-25-2023 take 1 capsule by mouth once daily omeprazole (PRILOSEC) 40 mg capsule Indications: Gastroesophageal reflux disease, unspecified whether esophagitis present Take 1 capsule by mouth once daily. 90 capsule 3 09/02/2022 08/25/2023 Discontinued Start: 09-03-2021 take 1 capsule by mo [facility] once daily omeprazole (PRILOSEC) 40 mg capsule Indications: Gastroesophageal reflux disease, unspecified whether esophagitis present Take 1 capsule by mouth once daily. 90 capsule 3 09/03/2021 Active Start: 12-11-2018 End: 10-07-2024 take 1 capsule by mouth once daily Omeprazole 10 mg capsule,delayed release(/EC) Discontinued 10 mg PO DAILY December 11, 2018 12:00am October 07, 2024 2:04pm Comment on above: Take 1 capsule by [facility] once daily. polyethylene glycol 3350 [id number] mg / potassium chloride 2970 mg / sodium bicarbonate 6740 mg / sodium chloride 5860 mg / sodium sulfate 51127 mg powder for oral solution (1 source) Osmotic Laxative Start: 11-24-19 End: 11-24-19 peg 3350-Electrolytes (GOLYTELY) 236-22.74-6.74 -5.86 gram suspension Indications: Screening for colon cancer , Tubulovillous adenoma Take 4,000 mL by mouth one time only for 1 dose. Refer to printed prep instructions from your provider. 4000 mL 0 11/24/2023 11/24/2023 Active Comment on above: Take 4,000 mL by [facility] one time only for 1 dose. Refer [...] a day 60 capsule 2 06/05/2024 Active Start: 12-11-2018 take 1 capsule by [facility] every eight hours Pregabalin (Lyrica) 100 mg capsule Active 100 mg PO Q8H December 11, 2018 12:00am Comment on above: Take 1 capsule by [facility] twice daily for 90 days. rosuvastatin calcium 20 mg oral tablet (20 sources) HMG-CoA Reductase Inhibitor Start: 3 End: take 1 tablet by mouth once daily at bedtime rosuvastatin (CRESTOR) 20 mg tablet Indications: Hyperlipidemia, mixed Take 1 tablet by mouth daily at bedtime. 90 tablet 1 11/02/2024 Active Start: 03-09-2022 End: 09-11-2023 take 1 [...] End: 04-09-2024 diphenhydrAMINE 12.5-50 mg injection (BENADRYL) 1 ml fentaNYL 0.05 mg/ml injection (1 source) Opioid Agonist Start: 04-09-2024 End: 04-09-2024 fentaNYL 50 mcg/mL 25-100 mcg injection (SUBLIMAZE) 5 ml midazolam 1 mg/ml injection (1 source) Benzodiazepine Start: 04-09-2024 End: 04-09-2024 midazolam 1-5 mg injection (VERSED) nitrofurantoin, macrocrystals 25 mg / nitrofurantoin, monohydrate 75 mg oral capsule (2 sources) Nitrofuran Antibacterial Start: 02-14-2025 End: 02-19-2025 take 1 capsule by mouth twice daily at mealtime nitrofurantoin monohydrate and macrocrystal (MACROBID) 100 mg capsule Take 1 capsule by mouth two times a day with meals for 5 days. 10 capsule 02/14/2025 02/19/2025 24 hr oxybutynin chloride 10 mg extended release oral tablet (18 sources) Cholinergic Muscarinic Antagonist Start: 11-17-2023 End: 03-11-2024 take 1 tablet by mouth once daily [...] release oral tablet (5 sources) Blood Viscosity Director [employer] Start: 05-19-20 End: 02-17-20 take 1 tablet by mouth three times daily at mealtime pentoxifylline ER (TRENTAL) 400 mg CR tablet Take 1 tablet by mouth three times daily with meals. 90 tablet 0 05/19/2022 02/16/2023 Discontinued Comment on above: Take 1 tablet by cee th three times daily with meals. pravastatin sodium 80 mg oral tablet (7 sources) HMG-CoA Reductase Inhibitor Start: 06-02-20 End: 03-09-20 take 1 tablet by mouth once daily pravastatin (PRAVACHOL) 80 mg tablet Indications: mixed hyperlipidemia Take 1 tablet by mouth once daily. 90 tablet 3 06/02/2021 03/09/2022 Discontinued Start: 12-11-2018 take 1 tablet by cee th once daily Pravastatin 10 mg tablet Active 10 mg PO DAILY December 11, 2018 12:00am Comment [...] with depressed mood] Onset: 02-03-2009 02-03-2009 Chronic Anxiety disorders (20 sources) Obsessive-compulsive disorder; Translations: [Obsessive-compulsive disorder, unspecified] Onset: 12-25-2013 12-25-2013 Chronic Chronic obstructive pulmonary disease and bronchiectasis (20 sources) Chronic obstructive lung disease; Translations: [Chronic obstructive pulmonary disease, unspecified] Onset: 02-16-2023 02-16-2023 Chronic Coronary atherosclerosis and other heart disease (6 sources) Calcification of coronary artery; Translations: [Atherosclerotic heart disease of [place] coronary artery without angina pectoris] Onset: 03-11-2024 [...] incontinence (female) (male)] Onset: 02-12-2025 10-27-2023 Chronic Miscellaneous mental health disorders (20 sources) Bulimia [...] finger(s)] 06-05-2024 Episodic Other connective tissue disease (2 sources) Spasm of cervical paraspinous muscle; Translations: [Other muscle spasm] 04-02-2025 Episodic Other connective tissue disease (2 sources) History of lumbar fusion; Translations: [Arthrodesis status] 10-07-2024 Episodic Other lower respiratory disease (1 source) Dyspnea on exertion; Translations: [Other forms of dyspnea] 03-11-2024 Episodic Other lower respiratory disease (1 source) Other forms of dyspnea; Translations: [GILL (dyspnea on exertion)] Onset: 03-11-2024 Episodic Other lower respiratory disease (1 source) Multiple nodules of lung; Translations: [Other nonspecific abnormal finding of lung field] 04-17-2025 Episodic Other lower respiratory disease (1 source) Other nonspecific abnormal finding of lung field; Translations: [Multiple lung nodules] Onset: 04-17-2025 Episodic Other nutritional; endocrine; and metabolic disorders (2 sources) Hypervitaminosis D; Translations: [Hypervitaminosis D] 12-05-2024 Chronic Other nutritional; endocrine; and metabolic disorders (1 source) Hypervitaminosis D; Translations: [High vitamin D level] Onset: 01-09-2025 Chronic Other screening for suspected conditions (not mental disorders or infectious disease) (20 sources) Patient encounter status; Translations: [Encounter for screening mammogram for malignant neoplasm of breast] Onset: 03-11-2024 Episodic Comment on above: Due for lung cancer screening 11/2019 Other upper respiratory infections (2 sources) Upper respiratory infection; Translations: [Acute upper respiratory infection, unspecified] 08-07-2023 Episodic Peripheral and visceral atherosclerosis (1 source) Peripheral vascular disease, unspecified; Translations: [Peripheral vascular disease, unspecified] Chronic Residual codes; unclassified (1 source) Tobacco use and exposure - finding; Translations: [Tobacco use] Episodic Residual codes; unclassified (4 sources) Tobacco user; Translations: [Tobacco use] 10-19-2023 Episodic Residual codes; unclassified (2 sources) Menopause present; Translations: [Asymptomatic menopausal state] 12-03-2024 Episodic Residual codes; unclassified (1 source) Tobacco use; Translations: [Tobacco abuse] Onset: 04-17-2025 Episodic Screening and history of mental health and substance abuse codes (3 sources) Ex-tobacco user; Translations: [Personal history of nicotine dependence] Onset: 04-17-2025 04-18-2025 Episodic Spondylosis; intervertebral disc disorders; other back problems (3 sources) Degeneration of lumbar intervertebral disc; Translations: [Degeneration of intervertebral disc of lumbar region] Onset: 04-14-2025 10-07-2024 Chronic Substance-related disorders (20 sources) Tobacco user; Translations: [Nicotine dependence, unspecified, uncomplicated] Onset: 02-09-2006 02-21-2017 Chronic Unclassified (3 sources) Patient encounter status 12-03-2024 Unclassified (1 source) Low back pain, unspecified; [...] uncomplicated] Onset: 08-17-2016 Resolved: 03-15-2023 09-13-2021 Chronic Allergic reactions (4 sources) Inflammatory dermatosis; Translations: [Dermatitis, unspecified] Onset: 01-27-2025 01-27-2025 Episodic Calculus of urinary tract (20 sources) Kidney stone; Translations: [Calculus of kidney] Onset: 01-10-2012 Resolved: 08-17-2018 12-25-2013 Episodic Diabetes mellitus without complication (7 sources) Prediabetes; Translations: [Prediabetes] Onset: 06-05-2024 Episodic Gastritis and duodenitis (20 sources) Acute gastritis; Translations: [Acute gastritis without bleeding] Onset: 07-08-2009 Resolved: 08-17-2018 08-17-2018 Episodic Genitourinary symptoms and ill-defined conditions (5 sources) Increased frequency of urination; Translations: [Frequency of micturition] Onset: 02-12-2025 11-17-2023 Episodic Immunizations and screening for infectious disease [...] unspecified site] Onset: 12-25-2013 12-25-2013 Episodic Other connective tissue disease (20 sources) Fibromyalgia; Translations: [Fibromyalgia] Onset: 05-14-2016 09-14-2021 Episodic Other connective tissue disease (1 source) Arthrodesis status; Translations: [Arthrodesis status] Onset: 10-07-2024 Episodic Other connective tissue disease (1 source) Pain in right finger(s); Translations: [Pain of right thumb] Onset: 06-05-2024 Episodic Other lower respiratory disease (20 sources) Breathing painful; Translations: [Chest pain on breathing] Onset: 02-09-2006 Resolved: 08-17-2018 08-17-2018 Episodic Other lower respiratory disease (2 sources) Chronic cough; Translations: [Chronic cough] Onset: 02-12-2025 02-12-2025 Episodic Other nervous system disorders (20 sources) Acute postoperative pain; Translations: [Other acute postprocedural pain] Onset: 02-23-2018 02-23-2018 Episodic Residual codes; unclassified (1 source) Asymptomatic menopausal state; Translations: [Asymptomatic menopause] Onset: 12-03-2024 Episodic Spondylosis; intervertebral disc disorders; other back problems (20 sources) Spinal stenosis of lumbar region; Translations: [Spinal stenosis, lumbar region with neurogenic claudication] Onset: 01-10-2018 02-23-2018 Episodic Unclassified (20 sources) PMH - PAST MEDICAL HISTORY OF Resolved: 08-17-2018 08-17-2018 Results Test Name Value Interpretation Reference Range Facility [facility] 06-02-2025 [facility] ([facility]) -------- MOLLY HIDALGO ([id number]) 1960 F Date Time Provider Department 06/02/25 TATYANA PEREZ During your visit today, we recorded the following information about you: Danielle Coronado LPN 06/02/2025 9:22 AM Signed Patient called. Verified name and date of . Patient wanted to let you know she has been taking the Singulair and it has made a world of difference for her. She appreciates your help. Danielle Coronado LPN Allergies As of Date: 06/02/2025 Noted Allergy Reaction IODINE (CONTRAST DYE) 01/17/2012 7 - Swelling Comments: PT HAD A REACTION OF SWELLING IN THROAT,TROUBLE BREATHING 24 HRS AFTER INJECTION OF IV DYE FOR A CT UROGRAM. KK LIPITOR (ATORVASTATIN CALCIUM) 14 - Other: See Comments Comments: Skin turned yellow Date Reviewed: 05/01/2025 Reviewed by: Miriam Hansen MA - Fully Assessed Reason for Visit: Patient Update [1234] FYI-No Action Needed [265] Prescriptions as of 06/02/2025 - montelukast (SINGULAIR) 10 mg tablet TAKE 1 TABLET BY MOUTH EVERYDAY AT BEDTIME - budesonide-formoterol (SYMBICORT) 160-4.5 mcg/actuation inhaler Inhale 2 puffs as instructed two times a day. - omeprazole (PRILOSEC) 40 mg capsule Take 1 capsule by mouth once daily. - lisinopril (ZESTRIL) 10 mg tablet Take 0.5 tablets by mouth once daily. - DULoxetine (CYMBALTA) 60 mg capsule Take 1 capsule by mouth once daily. patient assistance - levothyroxine (SYNTHROID) 25 mcg tablet Take 1 tablet by mouth once daily. - metFORMIN (GLUCOPHAGE) 500 mg tablet Take 1 tablet by mouth two times a day with meals. . - rosuvastatin (CRESTOR) 20 mg tablet Take 1 tablet by mouth daily at bedtime. - buPROPion XL (WELLBUTRIN XL) 300 mg [...] of 06/29/2012: Problem List As Of Date 06/02/2025 Noted Resolved Pure hypercholesterolemia [E78.00] 06/09/2005 08/17/2018 [...] obstructive pulmonary disease) (H*02/16/2023 Encounter Status:Closed by DANIELLE CORONADO on 06/02/25 [facility] 05-01-2025 [facility] Office Visit (FAMPWS ) -------- MOLLY HIDALGO ([id number]) 1960 F Date Time Provider Department 05/01/25 2:00 PM NEGRITO WILBURNPWS During your visit today, we recorded the following information about you: Temperature Pulse Blood pressure Weight 98.2 degrees 94/minute 104/66 59.6 kg Height 1.515 m Negrito Wilburn MD 05/01/2025 2:30 PM Signed Chief Complaint Patient presents with: Cough: Chronic cough for over a year. Excessive mucus production. Does not see Pulmonary. States she's been dx with COPD. Does have shortness of breath. More so with exertion but can be anytime. Denies chest pain. Unsure if her Symbicort is helping. Albuterol does help. Recording using [employer] software for draft documentation of the visit was discussed with the patient/authorized accounting representative; all questions welcomed and answered. Patient/authorized accounting representative agreed to proceed HPI Molly Hidalgo is a 64 year old female who presents here today for Above Complaints. COPD: - Chronic episodes of severe coughing with copious clear sputum production, occurring intermittently for over a year. - Episodes last 2-5 days, followed by a symptom-free period of 2-5 days. - Associated symptoms include nocturnal cough, yellow crusting around eyes, and yellow nasal discharge. - Reports significant fatigue during episodes. - Denies fever, chills, chest pain, or production of yellow/green sputum. - Uses albuterol inhaler PRN, sometimes BID during episodes. - Currently on Symbicort 80/4.5 mcg, BID; unsure of its efficacy. - Recently started on Montelukast by TUTU Perez at the lung cancer screening clinic; no noticeable improvement. - Last pulmonary function test in 2019. - Denies current pulmonology follow-up. - Current smoker, gradually reducing cigarette consumption; plans to reduce to 6 cigarettes/day tomorrow. Does not want help with cessation. Past medical history, appointments, medications, allergies reviewed. Previous Medical History PAST MEDICAL HISTORY Diagnosis Date Abnormal glandular Papanicolaou smear of cervix Abn. Pap smear (cervix) Bulimia (HCC) Chronic lower back pain Dr. Hall Colon polyps hyperplastic polyp 2014 COPD (chronic obstructive pulmonary disease) (HCC) 02/16/2023 Depression Diaphragmatic hernia without mention of obstruction or gangrene Esophageal reflux 06/09/2005 Family history of coronary artery disease Fatty liver 10/19/2023 Fibromyalgia History of alcohol dependence (HCC) History of drug abuse ([facility]) marijuana, cocaine, acid, methamphetamines, speed. Sober since [...] on File Prior to Visit Medication Sig montelukast (SINGULAIR) 10 mg tablet Take 1 tablet by mouth daily at bedtime. omeprazole (PRILOSEC) 40 mg capsule Take 1 capsule by mouth once daily. lisinopril (ZESTRIL) 10 mg tablet Take 0.5 tablets by mouth once daily. DULoxetine (CYMBALTA) 60 mg capsule Take 1 capsule by mouth once daily. patient assistance levothyroxine (SYNTHROID) 25 mcg tablet Take 1 tablet by mouth once daily. metFORMIN (GLUCOPHAGE) 500 mg tablet Take 1 tablet by mouth two times a day with meals. . budesonide-formoterol (SYMBICORT) 80-4.5 mcg/actuatio (more content not included)... Normal [facility] CNOVon 04-17-2025 CNOV Office Visit (PULMWS ) -------- MOLLY HIDALGO ([id number]) 1960 F Date Time Provider Department 04/17/25 2:00 PM TATYANA PEREZ PULMWS During your visit today, we recorded the following information about you: Pulse Weight 96/minute 60.4 kg Tatyana Perez APRN.CNP 04/18/2025 1:08 PM Addendum We discussed your respiratory symptoms and possible allergies: - I prescribed Singulair (montelukast) to help with your respiratory symptoms, including mucus production, airway tightness, and coughing. Take one pill daily in the evening. This has been sent to your pharmacy. - Singulair may cause drowsiness, so it is best to take it at bedtime. Rarely, it can cause mental side effects, such as suicidal thoughts, which are more common in children and older adults. If you notice any changes in your thinking or mood, stop taking the medication and contact me immediately. If you have thoughts of harming yourself, call 911 or go to the emergency room. - Continue taking Symbicort daily as prescribed and use your albuterol inhaler as needed for flare-ups. You mentioned using albuterol approximately three times a week during flare-ups. - If Singulair helps, you should notice an improvement in your respiratory symptoms within 30 days. If it does not help, stop taking it and let me know. We discussed your autoimmune symptoms and rheumatology referral: - You are experiencing symptoms such as body aches, flu-like symptoms, and neck pain, which may be related to an autoimmune condition. - You will need a referral to rheumatology from your primary care provider, Dr. Wilburn. Your next appointment with Dr. Wilburn is scheduled for June 06. Please discuss the referral with him at that time. - Rheumatology services are available locally, and appointments may be scheduled quickly. You may want to consider this option for convenience. We reviewed your imaging results: - I compared your current scan to the one from September 2023. There are no new findings, and the lung nodule remains unchanged in size. This is reassuring. Please monitor your symptoms and let me know if they worsen or if you experience any new issues. Tatyana Perez APRN.CNP 04/18/2025 1:08 PM Signed [facility] Lung Cancer Screening Annual Visit Current or Ex-smoker? [Current] Exam Type: annual LDCT Number of Pack Years: 52 Current smoker (=0) or Number of Years since Quit:0 The patient's smoking history is similar to prior year lung cancer screening visit. Chief Complaint: Established patient in lung cancer screening program here for annual follow-up and preliminary evaluation of today's LDCT exam for lung nodule surveillance/management. Impression / Recommendations Assessment: Molly Hidalgo is at an increased risk for developing lung cancer based on their past tobacco use and continues to qualify for annual low dose CT screening. Plan: Indeterminate pulmonary nodules: Previously identified lung nodules appear stable and no new nodules of concern were noted during preliminary review of today's exam. Anticipated result: LUNG RADS Category 2 - Low dose CT Scan to be repeated in one year. Plan subject to change pending final radiology report and recommendations. Nature of the lung nodule(s) and the recommendations for further evaluation discussed in detail with patient. Molly Hidalgo expressed understanding and is in agreement with plan. 2. Encounter for screening for malignant neoplasm of respiratory organs I have determined that the patient is eligible for continued low dose CT screening based on age, absence of signs or symptoms of lung cancer, smoking history and total pack years. The patient was counseled on the importance of adherence to annual LDCT lung cancer screening, impact of comorbidities and ability or willingness to undergo diagnosis and treatment. The patient understands and would like to continue with annual lung screening: Yes. 3. Personal history of nicotine dependence reports that she has been smoking cigarettes. She started smoking about 57 years ago. She has never used smokeless tobacco. The patient was counseled on the importance of smoking cessation if current smoker and, if appropriate, offered additional tobacco cessation counseling services - Smoking Cessation Counseling. SMOKING CESSATION COUNSELING Smoking cessation methods including Behavior Modification were discussed with the patient and assistance offered. The medical conditions adversely affected by cigarette use include:COPD, Emphysema, and Lung Cancer. Counseled on benefits of quitting smoking, recommended cessation or reduction to prevent development and/or progression of emphysema. The patient is currently not ready to quit. I personally spent 3 minutes in counseling. The time spent in smoking cessation counseling is e (more content not included)... Normal [facility] CT LUNG SCREEN WO IVCONon CT LUNG SCREEN WO IVCON * * *Final Report* * * DATE OF EXAM: Apr 17 2025 1:48PM [facility] 0562 - CT LUNG SCREEN WO IVCON / PROCEDURE REASON: multiple diagnoses * * * * Physician Interpretation * * * * EXAMINATION: CHEST CT WITHOUT CONTRAST (LOW-DOSE CT LUNG CANCER SCREENING PROTOCOL) CLINICAL HISTORY: Lung cancer LDCT screening ? absence of signs or symptoms of lung cancer. Nicotine dependence (cigarettes). Subsequent (annual) Technique: Spiral CT acquisition of the chest from the thoracic inlet to the upper abdomen without contrast. MQ: CTLCS_6 Patient characteristics: * Aciq-oo-Ywazp: 1960; Age at exam: 64 years * Gender: Female * Lung Disease: Asymptomatic (no signs or symptoms of lung disease) * Number of Pack Years: 52 * Current smoker (=0) or Number of Years since Quit: 0 * Ordering provider and NPI: TATYANA PEREZ [id number] * Interpreting radiologist and NPI: Xavier [id number] Exam acquisition parameters: * Exam Date: 04/17/2025 1:48 PM * Site: [facility] * * CT System Dish Carrier: Siemens * CT System Model: Sensation * Tube Current-Time (mA-sec): 19 * Peak Voltage (kV): 120V * Scan Time (sec): 10.28 * Scan Volume (z-length, cm): -27.20 * Pitch: 0.75 * Slice Thickness (mm): 1.5 * CT Dose-Length Product: 66 mGy*cm * CT Dose Index: 1.48mGy * CT Dose Reduction Method: Automated exposure control(AEC) and iterative recon COMPARISON: Low-dose CT lung screen, 10/16/2023 RESULT: Are nodules present? Yes, 1-5 nodules If No, go to IMPRESSION. If yes, proceed with characterization of the FIVE largest nodules. Nodule 1: This Solid nodule is located in the Right Middle Lobe on slice number 195 with an average diameter of 5.6 mm (7.3 mm x 3.8 mm). Nodule 2: This Solid nodule is located in the Right Upper Lobe on slice number 151 with an average diameter of 4.5 mm (6.7 mm x 2.3 mm). Nodule 3: This Solid nodule is located in the Left Upper Lobe on slice number 150 with an average diameter of 2.3 mm (2.3 mm x 2.3 mm). Nodule 4: This Solid nodule is located in the Left Upper Lobe on slice number 52 with an average diameter of 1.9 mm (2.2 mm x 1.6 mm). Nodule 5: This Calcified nodule is located in the Right Lower Lobe on slice number 118 with an average diameter of 2.0 mm (2.3 mm x 1.7 mm). If this is an ANNUAL LDCT for LCS, please ensure nodule number is the same as in the prior evaluation. Other lung nodule comments: None Other findings: Moderate centrilobular and trivial paraseptal emphysema with upper lobe predominance. Mild diffuse bronchial wall thickening in both lungs suggestive of chronic airway inflammation. Chronic interstitial changes with clustered cysts and reticular opacities along the posterior right lower lobe. Mild dependent atelectasis along the posterior left lower lobe. Mild aortic root calcifications. Mild to moderate aortic arch and descending aorta calcifications. Severe coronary calcifications. Subcentimeter calcified nodule in the left thyroid lobe. Small hiatal hernia. Punctate calcification in the left breast. Mild elevation of the left hemidiaphragm. Mild osteopenia. Emphysema: Moderate (25-50%), Centrilobular, Upper lobe Coronary Artery Calcifications: Circumflex None; Left Anterior Descending Severe; Right Coronary Severe Incidental coronary calcium as automatically processed and calculated using AI: Total Coronary Calcium Score = [100+] Agatston Units Percentile Rank (age and gender matched relative to reference population): [75th-100th] percentile* [* [email or web address].gonsalves-nhlbi.o rg/calcium/input.aspx] Localizer images: No additional findings. IMPRESSION: LungRADS category: 2 S LungRADS modifier: Significant other (S), coronary artery calcification, moderate or severe LungRADS 0 reason: n/a Recommendations: Continue annual screening with LDCT in 12 months. Other actionable findings: === Reference: [employer]. Lung CT Screening Reporting and Data System (Lung-RADS). Available at: http://www.acr.org/Quali ty-Safety/Resources/Lung RADS Burial Vault Setter: QUINTIN Transcribe Date/Time: Apr 21 2025 2:15P Dictated by : LITO TALAMANTES MD This examination was interpreted and the report reviewed and electronically signed by: LITO TALAMANTES MD on Apr 21 2025 2:29PM EST [id number] Normal [facility] Cerv Spine 2 or 3 Viewson Cerv Spine 2 or 3 Views [facility] Imaging Services [address] [place] [address] Cerv Spine 2 or 3 Views MR#: [id number] Acct: [id number] Name: MOLLY HIDALGO Rep #: [id number] : 1960 F 64 From: Keagan Lopez MD PCP: Dr. Roger Wilburn MD Status: REG CLI Study: Cerv Spine 2 or 3 Views Date of Exam: 04/08/25 Exam# [id number] Ordering Dr: Omer Hall MD PROCEDURE: CERV SPINE 2 OR 3 VIEWS 04/08/2025 REASON FOR EXAM: SPONDYLOSIS WITHOUT MYELOPATHY OR RADICULOPATHY, CERVICAL REGION TECHNIQUE: CERV SPINE 2 OR 3 VIEWS COMPARISON: None. FINDINGS: No evidence of acute fracture or dislocation. Qipnmkgr-[id number]-pmubdh degenerative changes of the visualized spine. Grade 1 anterolisthesis of C3 on C4. RAD/Cerv Spine 2 or 3 Views IMPRESSION: Spondylosis. Spondylolisthesis. Reading Location: [facility] CC: Dr. Omer Hall MD; Dr. Roger Wilburn MD Burial Vault Setter: Signed Normal [facility] Emergency Department Summary on 04-02-2025 Emergency Department Summary [facility] Medical Records Department [address] [place] [address] Emergency Department Summary 04/02/25 MR#: [id number] Acct: [id number] Name: ROCKYMOLLY REYES Rep #: [id number] : 1960 64 From: Laz James DO PCP: Dr. Roger Wilburn MD Status:DEP ER Location: ED HPI History of Present Illness Chief Complaint: Other, Pain/Inj Informant: patient and EMS Narrative Narrative: Patient is a 64-year-old female with past medical of hypertension hyperlipidemia and depression. She states she went to bed roughly 4 days ago as she normally would. When she awoke she noticed pain in tension in the left side of her neck. She states that she has been trying dzzc-lvg-kdwmcbv medications but she feels that the tension and pain has just worsened. She states to the point where she has a hard time turning her head secondary to the pain. She denies any trauma prior to the pain began. She denies any fevers or chills or sore throat. She denies any numbness tingling or weakness. However as her symptoms are not resolving she presents for evaluation [facility] Medical History Acid reflux Depression Hypertension High cholesterol Home Medications ???Medication ???Instructions ???Recorded ???Last Taken ???Type duloxetine 60 mg capsule,delayed 60 mg PO DAILY 12/11/18 Unknown Hi story release (Cymbalta) pravastatin 10 mg tablet 10 mg PO DAILY 12/11/18 Unknown Hi story pregabalin 100 mg capsule (Lyrica) 100 mg PO Q8H 12/11/18 Unknown H istory lisinopril 10 mg tablet 5 mg PO QDAY 10/07/24 Unknown Hist ory omeprazole 40 mg capsule,delayed 40 mg PO QDAY 10/07/24 Unknown His tory release tramadol 50 mg tablet 50 mg PO BID 10/07/24 Unknown Hist ory diazepam 5 mg tablet (Valium) 5 mg PO TID PRN muscle spasm 5 Unknown Rx days #15 tabs levothyroxine 25 mcg tablet 25 mcg PO DAILY 04/02/25 Unknown H istory oxycodone-acetaminophen 5 mg-325 1 tab PO Q6H PRN pain 3 days #12 0 04/02/25 Unknown Rx mg tablet (Percocet) tabs Allergy/AdvReac Type Severity Reaction Status Date / Time atorvastatin (From Lipitor) Allergy Severe Other Verified 04/02/25 23:08 cat dander Allergy Other Verified 04/02/25 23:08 Iodinated Contrast Media Allergy Angioedema Verified 04/02/25 23:08 (Iodinated Contrast- Oral and IV Dye) Family History Father Hypertension Mother Hypertension Surgical History H/O: hysterectomy Previous back surgery Social History Smoking Status: Current every day smoker tobacco type: cigarettes Tobacco: How many years used: 43 second hand exposure: No quit status: has quit before ROS ROS ED Constitutional Constitutional ED: Denies chills or fever(s) Eyes Eyes: Denies blurry vision or change in vision ENT ENT ED: Denies sore throat Cardiovascular Cardiovascular: Denies chest pain Respiratory/Chest Respiratory/Chest: Denies cough or dyspnea Gastrointestinal Gastrointestinal: Denies abdominal pain, diarrhea, nausea or vomiting Musculoskeletal Musculoskeletal: Reports neck pain Integumentary Denies Abrasions or rash Neurologic Neurologic: Denies headache(s), paresthesias or weakness Psychiatric Psychiatric: Reports depression Hematologic/Lymphatic Hematologic/Lymphatic: Denies easy bleeding or easy bruising Allergic/Immunologic Allergic/Immunologic ED: Denies mouth swelling or tongue swelling EXAM Physical Exam Const Vital Signs: 04/02/25 23:05 04/03/25 00:03 Temperature 98.3 F 98.0 F Temperature Source Oral Pulse Rate 91 73 Respiratory Rate 16 16 Blood Pressure 162/92 H 144/76 H Blood Pressure Mean 115 98 Pulse Ox 94 100 Positive well nourished and well developed General Appearance ED: well developed; Negative for pallor HEENT Reports moist mucous membranes HEENT Narrative: Normocephalic atraumatic No tongue or lip swelling no oral lesions no airway edema or compromise No secondary findings in the posterior pharynx to suggest infection Eyes PERRL and EOMs intact bilaterally General Eye ED: Negative for scleral icterus Neck Neck Narrative: No bony deformity or step-off of the cervical spine no midline tenderness to palpation There is left paracervical tension and spasm noted. Pain worsens with sidebending and rotation. No overlying soft tissue changes such as erythema warmth induration or fluctuance. No crepitus palpated. No meningeal signs present Resp normal respiratory effort and clear to auscultation bilaterally Cardio regular rate and regular rhythm Extremity normal to inspection Neuro oriented x3, CN's II- (more content not included)... Normal [facility] 03-07-2025 LUCIE Telephone ([facility]) -------- ROCKYMOLLY Madison ([id number]) 1960 F Date Time Provider Department 03/07/25 TATYANA PEREZ [facility] During your visit today, we [...] Status:Closed by TATYANA PEREZ on 03/10/25 Normal [facility] DBT Breast - left diagnostic for implanton [...] Radha Mitchell M.D. Electronically signed on: 02/19/2025 Burial Vault Setter: REEMA Transcribe Date/Time: Feb 19 2025 12:55P Dictated by: RADHA MITCHELL MD This examination was interpreted and the report reviewed and electronically signed by: RADHA MITCHELL MD on Feb 19 2025 2:07PM [facility] DIVISION OF RADIOLOGY * * *Final Report* * * DATE OF EXAM: Feb 19 2025 1:23PM [facility] 0628 - [facility] SHERLYNG W ROXANNE LT / PROCEDURE REASON: Abnormal mammogram * * * * Physician Interpretation * * * * RESULT: [facility] [address] [id number] #[id number] - [facility] LISA W ROXANNE LT #[id number] - [facility] US BREAST LTD LT HISTORY: 64 year-old [...] the focal asymmetry. DIVISION OF RADIOLOGY Provider, [facility] - 02/19/2025 * * *Final Report* * * DATE OF EXAM: Feb 19 2025 1:23PM [facility] 0628 - [facility] DIAG W ROXANNE LT / PROCEDURE REASON: Abnormal mammogram * * * * Physician Interpretation * * * * RESULT: [facility] [address] [id number] #[id number] - [facility] LISA W ROXANNE LT #[id number] - [facility] US BREAST LTD LT HISTORY: 64 year-old [...] Radha Mitchell M.D. Electronically signed on: 02/19/2025 Burial Vault Setter: REEMA Transcribe Date/Time: Feb 19 2025 12:55P Dictated by: RADHA MITCHELL MD This examination was interpreted and the report reviewed and electronically signed by: RADHA MITCHELL MD on Feb 19 2025 2:07PM EST [facility] DBT Breast - left diagnostic for implantOrdered By: Ccf Provider on 02-19-2025 [facility] DIAG W ROXANNE LTon [facility] DIAG W ROXANNE LT * * *Final Report* * * DATE OF EXAM: Feb 19 2025 1:23PM [facility] 0628 - [place] DIAG W ROXANNE LT / PROCEDURE REASON: Abnormal mammogram * * * * Physician Interpretation * * * * RESULT: [facility] [place] [address] #[id number] - [place] DIAG W ROXANNE LT #[id number] - [facility] US BREAST LTD LT HISTORY: [...] Radha Mitchell M.D. Electronically signed on: 02/19/2025 Burial Vault Setter: REEMA Transcribe Date/Time: Feb 19 2025 12:55P Dictated by: RADHA MITCHELL MD This examination was interpreted and the report reviewed and electronically signed by: RADHA MITCHELL MD on Feb 19 2025 2:07PM EST [id number] Normal [facility] US BREAST LTD LTon 02-19 [facility] US BREAST LTD LT * * *Final Report* * * DATE OF EXAM: Feb 19 2025 1:45PM [facility] 0593 - [facility] US BREAST LTD LT / PROCEDURE REASON: Abnormal mammogram * * * * Physician Interpretation * * * * [address] [address] [place] [address] #[id number] - [facility] LISA W ROXANNE LT #[id number] - [facility] [employer] BREAST LTD LT HISTORY: 64 year-old patient [...] Radha Mitchell M.D. Electronically signed on: 02/19/2025 Burial Vault Setter: REEMA Transcribe Date/Time: Feb 19 2025 1:37P Dictated by : RADHA MITCHELL MD This examination was interpreted and the report reviewed and electronically signed by: RADHA MITCHELL MD on Feb 19 2025 2:07PM EST [id number] Normal [facility] No Panel Informationon 02-19 Radiology Study observation (narrative) [facility] US Breast - left limitedon 0 02-19-2025 [...] Radha Mitchell M.D. Electronically signed on: 02/19/2025 Burial Vault Setter: REEMA Transcribe Date/Time: Feb 19 2025 1:37P Dictated by : RADHA MITCHELL MD This examination was interpreted and the report reviewed and electronically signed by: RADHA MITCHELL MD on Feb 19 2025 2:07PM EST DIVISION OF RADIOLOGY * * *Final Report* * * DATE OF EXAM: Feb 19 2025 1:45PM [facility] 0593 - [place] US BREAST LTD LT / PROCEDURE REASON: Abnormal mammogram * * * * Physician Interpretation * * * * [facility] SPECIALTY [address] [address] [id number] #[id number] - [facility] LISA Smith ROXANNE LT #[id number] - [facility] [employer] BREAST LTD LT HISTORY: 64 year-old patient [...] DATE OF EXAM: Feb 19 2025 1:45PM [facility] 0593 - [facility] [employer] BREAST LTD LT / PROCEDURE REASON: Abnormal mammogram * * * * Physician Interpretation * * * * [address] [id number] #[id number] - [facility] LISA W ROXANNE LT #[id number] - [facility] US BREAST LTD LT HISTORY: 64 year-old [...] Radha Mitchell M.D. Electronically signed on: 02/19/2025 Burial Vault Setter: REEMA Transcribe Date/Time: Feb 19 2025 1:37P Dictated by : RADHA MITCHELL MD This examination was interpreted and the report reviewed and electronically signed by: RADHA MITCHELL MD on Feb 19 2025 2:07PM [facility] Breast - left limitedOrde red By: Cc Provider on 02-19-2025 [facility] Bacteria Ur Culton Bacteria identified Cx Nom [...] , Intermediate >32 , Resistant >64 Abnormal [facility] Comment on above: Performed By: #### 6 30-4 ####[facility] [id number] [address] OF [facility] CNOVon 02-12-2025 CNOV Office Visit (FAMDuniaWS ) -------- MOLLY HIDALGO ([id number]) 1960 F Date Time Provider Department 02/12/25 [...] small amount. Blood noticed x1. Recording using [employer] software for draft documentation of the visit was discussed with the patient/authorized accounting representative; all questions welcomed and answered. Patient/authorized accounting representative agreed to proceed SUBJECTIVE: This is [...] status: Ev (more content not included)... Normal [facility] UA DIP, URINE (POC)on 2024 BILIRUBIN UA (POCT) Negative Negative [facility] CLARITY UA (POCT) [facility] COLOR UA (POCT) Yellow [facility] GLUCOSE UA (POCT) Negative Negative mg/dL [facility] Hemoglobin Ql (U) Small Abnormal Negative [facility] Interpretation and review of laboratory results Abnormal [facility] KETONE UA (POCT) Trace Negative mg/dL [facility] LEUKOCYTES UA (POCT) Small Abnormal Negative [facility] NITRITE UA (POCT) Negative Negative [facility] PH UA (POCT) 5.5 4.5 - 8.0 [facility] Protein Ql (U) 100 mg/dL Abnormal Negative [facility] SPECIFIC GRAVITY UA (POCT) 1.02 1.005 - 1.030 [facility] UROBILINOGEN UA (POCT) 0.2 Haylie l E.U./dL [facility] Location:[address], [place], [place], [id number] [place] [address] POINT OF CARE [facility] XR CHEST 2V FRONTAL/LATon XR CHEST 2V [...] thoracic spine. IMPRESSION: No acute radiographic abnormality. Burial Vault Setter: QUINTIN Transcribe Date/Time: Feb 12 2025 4:39P Dictated by : ANNMARIE VÁZQUEZ MD This examination was interpreted and the report reviewed and electronically signed by: ANNMARIE VÁZQUEZ MD on Feb 12 2025 4:40PM EST [id number] Normal [facility] XR Chest PA and Lateralon IMPRESSION: No acute radiographic abnormality. Burial Vault Setter: PSCB Transcribe Date/Time: Feb 12 2025 4:39P Dictated by : ANNMARIE VÁZQUEZ MD This examination was interpreted and the report reviewed and electronically signed by: ANNMARIE VÁZQUEZ MD on Feb 12 2025 4:40PM [facility] DIVISION OF RADIOLOGY * * [...] the thoracic spine. DIVISION OF RADIOLOGY Provider, [facility] - 02/12/2025 * * *Final Report* [...] spine. IMPRESSION IMPRESSION: No acute radiographic abnormality. Burial Vault Setter: QUINTIN Transcribe Date/Time: Feb 12 2025 4:39P Dictated by : ANNMARIE VÁZQUEZ MD This examination was interpreted and the report reviewed and electronically signed by: ANNMARIE VÁZQUEZ MD on Feb 12 2025 4:40PM EST [facility] Radiology Study observation (narrative) [facility] XR Chest PA and LateralOrder ed By: Ccf Provider on 02-12-2025 [facility] B. burgdorferi IgG and IgM p marlyn (S)on 01-27-2025 B. burgdorferi IgG+IgM Qn (S) Negative Normal Negative [facility] Comment on above: Order Comment: Speci men Type: BLOOD SPECIMENOrdering Facility: [facility] Address: [address] [place] [address] Result Comment: Rece nt infection with B. burgdorferi sensu lato cannot be excluded if the specimen collected within four weeks after the onset of signs and symptoms or within six weeks after a known tick exposure. Clinical and epidemiological correlation is required. Performed By: #### 3 4942-3 ####[facility]IA [id number] [address] [place] CNOVon 01-27-2025 CNOV Office Visit (FAMPWS ) -------- MOLLY HIDALGO ([id number]) 1960 F Date Time Provider Department 01/27/25 11:40 AM NEGRITO WILBURNPWS During your visit today, we recorded the following information about you: Temperature Pulse Respiration Blood pressure 97.8 degrees 81/minute 18/minute 102/64 Weight 62.6 kg Negrito Wilburn MD 01/27/2025 1:43 PM Signed Chief Complaint Patient presents with: Rash: Started approx 5 days ago Recording using [employer] software for draft documentation of the visit was discussed with the patient/authorized accounting representative; all questions welcomed and answered. Patient/authorized accounting representative agreed to proceed HPI Molly Hidalgo [...] liver 10/19/2023 Fibromyalgia History of alcohol dependence ([facility]) History of drug abuse ([facility]) marijuana, cocaine, acid, methamphetamines, speed. Sober since [...] pain. traMADol (more content not included)... Normal [facility] TSH SerPl-aCncon 01-27-2025 TSH Qn 2.810 m[IU]/L Normal 0.270-4.200 [facility] Comment on above: Order Comment: Speci men Type: BLOOD SPECIMENOrdering Facility: [facility] Address: [address] [place] [address] Performed By: #### 3 016-3 ####[facility] LABCLIA [id number] [place] [address] [place] Halima 01-13-2025 CNPN Telephone (KEELEY) -------- MOLLY HIDALGO ([id number]) 1960 F Date Time Provider Department 01/13/25 DILLAN PEREZ During your visit today, we recorded [...] Status:Closed by MELINDA ELLSWORTH on 01/13/25 Normal [facility] 25(OH)D3 SerPl-mCncon 2024 25-hydroxyvitamin D3 [Mass/Vol] 76.0 ng/mL Normal 31.0-80.0 [facility] Comment on above: Order Comment: Speci men Type: BLOOD SPECIMENOrdering Facility: [facility] Address: [address] [place] [address] Result Comment: Clas sification of 25 [place] Vitamin D status: Deficiency/Insufficiency: < or = 30 ng/ml. Sufficiency/Optimal Levels: 31-80 ng/mL Toxicity: > 100 ng/mL. Test performed by chemiluminescent immunoassay. Performed By: #### 1 989-3 ####[facility] LABCLIA [id number] [place] [address] [place] BD DXA - AXIAL SKELETONon BD DXA - AXIAL SKELETON * * *Final Report* * * DATE OF EXAM: Jan 09 2025 2:20PM [facility] 0804 - BD DXA - AXIAL SKELETON / PROCEDURE REASON: Asymptomatic menopause * * * * Physician Interpretation * * * * EXAMINATION: DXA BONE DENSITOMETRY BD DXA - AXIAL SKELETON PATIENT DEMOGRAPHICS: Age: 64 years, Gender: Female SCANNER INFORMATION: DXA Model: [employer] - Georama C 37287 Date Scanned: 01/09/2025 2:20 PM CLINICAL HISTORY: [...] had a previous bone density in the [facility] or the previous bone density was performed on a different DXA machine (new, updated model or different location) within the [facility]. IMPRESSION: THE LOWEST T-SCORE IS -2.6 IN [...] FOR MORE INFORMATION ABOUT DIAGNOSIS AND TREATMENT: [facility] Center for Osteoporosis and Metabolic Bone Disease:? www.ccf.org/arthritis/os davion National Osteoporosis Foundation:? www.nof.org International Society of Clinical Densitometry www.iscd.org Burial Vault Setter: QUINTIN Transcribe Date/Time: Jan 13 2025 5:50A Dictated by : ANNMARIE VÁZQUEZ MD This examination was interpreted and the report reviewed and electronically signed by: ANNMARIE VÁZQUEZ MD on Jan 13 2025 5:51AM EST [id number] -2.6 Normal [facility] EDDY SCREENING W TOMDavis 01-09 EDDY SCREENING W ROXANNE * * *Final Report* * * DATE OF EXAM: Jan 09 2025 2:35PM [facility] 0582 - [facility] SCREENING W ROXANNE / PROCEDURE REASON: Encounter for screening mammogram for breast cancer * * * * Physician Interpretation * * * * RESULT: [place] [address] [place] [id number] #[id number] - EDDY SCREENING W ROXANNE HISTORY: 64 [...] Dillan Perez M.D. Electronically signed on: 01/13/2025 Burial Vault Setter: REEMA Transcribe Date/Time: Jan 09 2025 2:23P Dictated by: DILLAN PEREZ MD This examination was interpreted and the report reviewed and electronically signed by: DILLAN PEREZ MD on Jan 13 2025 3:01PM EST [id number] Normal [facility]24 [facility] -------- ROCKYMOLLY Madison ([id number]) 1960 F Date Time Provider Department 12/11/24 JEANNE COTTON [facility] During your visit today, we recorded the [...] Legend: (H) High (L) Low Jeanne Cotton APRN.[facility] 12/12/2024 10:32 AM Signed Please let patient know her TSH is lower than previous but still elevated. I have sent in a prescription for synthroid for her to start and repeat in TSH 2 months. Bing Bryan RN 12/12/2024 11:36 AM Signed Pt called and [...] daily.Disp: 90 tabletRfl: 0 THYROID STIMULATING HORMONE [SQTS] Order #: [id number] FUTURE Prescriptions as of 12/12/2024 - levothyroxine [...] Other and unspecified alcohol dependence, unspe* 03/15/2023 [facility] - PAST MEDICAL HISTORY OF 08/17/2018 CHEST [...] Status:Closed by BING BRYAN on 12/12/24 Normal [facility] 25(OH)D3 [facility] 25-hydroxyvitamin D3 [Mass/Vol] 136.0 ng/mL High 31.0-80.0 [facility] Comment on above: Order Comment: Speci men Type: BLOOD SPECIMEN [facility] Address: [address] [place] [address] Result Comment: Clas sification of 25 [place] Vitamin D status: Deficiency/Insufficiency: < or = 30 ng/ml. Sufficiency/Optimal Levels: 31-80 ng/mL Toxicity: > 100 ng/mL. Test performed by chemiluminescent immunoassay. Performed By: #### 2 132-9, 40914-4, 3016-3 #### [facility] CLIA [id number] [address] [place] [address] [place] T4 Free SerPl-mCncon 025 Free T4 [Mass/Vol] 0.7 ng/dL Low 0.9-1.7 [facility] Comment on above: Order Comment: Speci men Type: BLOOD SPECIMEN [facility] Address: [address] [place] [address] Performed By: #### 2 132-9, 95936-3, 3016-3 #### [facility] CLIA [id number] [address] [place] [address] [place] TSH SerPl-aCncon 12-06-2024 TSH Qn 4.490 m[IU]/L High 0.270-4.200 [facility] Comment on above: Order Comment: Speci men Type: BLOOD SPECIMEN [facility] Address: [address] [place] [address] Performed By: #### 2 132-9, 21421-9, 3016-3 #### [facility] CLIA [id number] [address] [place] [address] [place] 25(OH)D3 SerPl-mCncon 2024 25-hydroxyvitamin D3 [Mass/Vol] 130.0 ng/mL High 31.0-80.0 [facility] Comment on above: Order Comment: Speci men Type: BLOOD SPECIMEN [facility] Address: [address] [place] [address] Performed By: #### 1 989-3 #### [facility] CLIA [id number] [address] [place] [address] [place] CBC W Auto Differential pane l (Bld)on 12-03-2024 Basophils (Bld) [#/Vol] 0.11 10*3/uL High [facility] Basophils/100 WBC (Bld) 1.1 % [facility] Differential cell count method Nom (Bld) Auto [facility] Eosinophils (Bld) [#/Vol] 0.76 10*3/uL High [facility] Eosinophils/100 WBC (Bld) 7.8 % [facility] Erythrocyte distribution width (RBC) [Ratio] 12.5 % 11.5 - 15.0 % [facility] Hematocrit (Bld) [Volume fraction] 42.8 % 36.0 - 46.0 % [facility] Hemoglobin (Bld) [Mass/Vol] 14.1 g/dL 11.5 - 15.5 g/dL [facility] Immature granulocytes (Bld) [#/Vol] 0.12 10*3/uL High [facility] Immature granulocytes/100 WBC (Bld) 1.2 % [facility] Interpretation and review of laboratory results Abnormal [facility] Lymphocytes (Bld) [#/Vol] 3.31 10*3/uL [facility] Lymphocytes/100 WBC (Bld) 34.1 % [facility] MCH (RBC) [Entitic mass] 30.3 pg 26.0 - 34.0 pg [facility] MCHC (RBC) [Mass/Vol] 32.9 g/dL 30.5 - 36.0 g/dL [facility] MCV (RBC) [Entitic vol] 92 fL 80.0 - 100.0 fL [facility] Monocytes (Bld) [#/Vol] 0.95 10*3/uL High [facility] Monocytes/100 WBC (Bld) 9.8 % [facility] Neutrophils (Bld) [#/Vol] 4.47 10*3/uL [facility] Neutrophils/100 WBC (Bld) 46 % [facility] Nucleated RBC (Bld) [#/Vol] NINF [facility] Nucleated RBC/100 WBC (Bld) [Ratio] 0 % /100 WBC [facility] Platelet mean volume (Bld) [Entitic vol] 9.7 fL 9.0 - 12.7 fL [facility] Platelets (Bld) [#/Vol] 266 10*3/uL [facility] RBC (Bld) [#/Vol] 4.65 10*6/uL 3.90 - 5.2 0 m/uL [facility] WBC (Bld) [#/Vol] 9.72 10*3/uL [facility] Basophils (Bld) [#/Vol] 0.11 10*3/uL High <0.11 [facility] Comment on above: Order Comment: Speci men Type: BLOOD SPECIMENOrdering Facility: [facility] Address: [address] [place] [address] Performed By: #### 5 7021-8 ####[facility] LABCLIA [id number] [place] [address] [place] Basophils/100 WBC (Bld) 1.1 % Normal [facility] Comment on above: Order Comment: Speci men Type: BLOOD SPECIMENOrdering Facility: [facility] Address: [address] [place] [address] Performed By: #### 5 7021-8 ####[facility] LABCLIA [id number] [place] [address] [place] Differential cell count method Nom (Bld) Auto Normal [facility] Comment on above: Order Comment: Speci men Type: BLOOD SPECIMENOrdering Facility: [facility] Address: [address] [place] [address] Performed By: #### 5 7021-8 ####[facility] LABCLIA [id number] [place] [address] [place] Eosinophils (Bld) [#/Vol] 0.76 10*3/uL High <0.46 [facility] Comment on above: Order Comment: Speci men Type: BLOOD SPECIMENOrdering Facility: [facility] Address: [address] [place] [address] Performed By: #### 5 7021-8 ####[facility] LABCLIA [id number] [place] [address] [place] Eosinophils/100 WBC (Bld) 7.8 % Normal [facility] Comment on above: Order Comment: Speci men Type: BLOOD SPECIMENOrdering Facility: [facility] Address: [address] [place] [address] Performed By: #### 5 7021-8 ####[facility] LABCLIA [id number] [place] [address] [place] Erythrocyte distribution width (RBC) [Ratio] 12.5 % Normal 11.5-15.0 [facility] Comment on above: Order Comment: Speci men Type: BLOOD SPECIMENOrdering Facility: [facility] Address: [address] [place] [address] Performed By: #### 5 7021-8 ####[facility] LABIA [id number] [place] [address] [place] Hematocrit (Bld) [Volume fraction] 42.8 % Normal 36.0-46.0 [facility] Comment on above: Order Comment: Speci men Type: BLOOD SPECIMENOrdering Facility: [facility] Address: [address] [place] [address] Performed By: #### 5 7021-8 ####[facility]CLIA [id number] [place] [address] [place] Hemoglobin (Bld) [Mass/Vol] 14.1 g/dL Normal 11.5-15.5 [facility] Comment on above: Order Comment: Speci men Type: BLOOD SPECIMENOrdering Facility: [facility] Address: [address] [place] [address] Performed By: #### 5 7021-8 ####[facility] LABIA [id number] [place] [address] [place] Immature granulocytes (Bld) [#/Vol] 0.12 10*3/uL High <0.10 [facility] Comment on above: Order Comment: Speci men Type: BLOOD SPECIMENOrdering Facility: [facility] Address: [address] [place] [address] Performed By: #### 5 7021-8 ####[facility] LABCLIA [id number] [place] [address] [place] Immature granulocytes/100 WBC (Bld) 1.2 % Normal [facility] Comment on above: Order Comment: Speci men Type: BLOOD SPECIMENOrdering Facility: [facility] Address: [address] [place] [address] Performed By: #### 5 7021-8 ####[facility] LABCLIA [id number] [place] [address] [place] Lymphocytes (Bld) [#/Vol] 3.31 10*3/uL Normal 1.00-4.00 [facility] Comment on above: Order Comment: Speci men Type: BLOOD SPECIMENOrdering Facility: [facility] Address: [address] [place] [address] Performed By: #### 5 7021-8 ####[facility] LABCLIA [id number] [place] [address] [place] Lymphocytes/100 WBC (Bld) 34.1 % Normal [facility] Comment on above: Order Comment: Speci men Type: BLOOD SPECIMENOrdering Facility: [facility] Address: [address] [place] [address] Performed By: #### 5 7021-8 ####[facility]CLIA [id number] [place] [address] [place] MCH (RBC) [Entitic mass] 30.3 pg Normal 26.0-34.0 [facility] Comment on above: Order Comment: Speci men Type: BLOOD SPECIMENOrdering Facility: [facility] Address: [address] [place] [address] Performed By: #### 5 7021-8 ####[facility]CLIA [id number] [place] [address] [place] MCHC (RBC) [Mass/Vol] 32.9 g/dL Normal 30.5-36.0 [facility] Comment on above: Order Comment: Speci men Type: BLOOD SPECIMENOrdering Facility: [facility] Address: [address] [place] [address] Performed By: #### 5 7021-8 ####[facility]CLIA [id number] [place] [address] [place] MCV (RBC) [Entitic vol] 92.0 fL Normal 80.0-100.0 [facility] Comment on above: Order Comment: Speci men Type: BLOOD SPECIMENOrdering Facility: [facility] Address: [address] [place] [address] Performed By: #### 5 7021-8 ####[facility] LABIA [id number] [place] [address] [place] Monocytes (Bld) [#/Vol] 0.95 10*3/uL High <0.87 [facility] Comment on above: Order Comment: Speci men Type: BLOOD SPECIMENOrdering Facility: [facility] Address: [address] [place] [address] Performed By: #### 5 7021-8 ####[facility]CLIA [id number] [place] [address] [place] Monocytes/100 WBC (Bld) 9.8 % Normal [facility] Comment on above: Order Comment: Speci men Type: BLOOD SPECIMENOrdering Facility: [facility] Address: [address] [place] [address] Performed By: #### 5 7021-8 ####[facility] LABIA [id number] [id number] [address] [place] Neutrophils (Bld) [#/Vol] 4.47 10*3/uL Normal 1.45-7.50 [facility] Comment on above: Order Comment: Speci men Type: BLOOD SPECIMENOrdering Facility: [facility] Address: [address] [place] [address] Performed By: #### 5 7021-8 ####[facility]CLIA [id number] [place] [address] [place] Neutrophils/100 WBC (Bld) 46.0 % Normal [facility] Comment on above: Order Comment: Speci men Type: BLOOD SPECIMENOrdering Facility: [facility] Address: [address] [place] [address] Performed By: #### 5 7021-8 ####[facility]CLIA [id number] [place] [address] [place] Nucleated RBC (Bld) [#/Vol] 10*3/uL Normal <0.01 [facility] Comment on above: Order Comment: Speci men Type: BLOOD SPECIMENOrdering Facility: [facility] Address: [address] [place] [address] Performed By: #### 5 7021-8 ####[facility]CLIA [id number] [place] [address] [place] Nucleated RBC/100 WBC (Bld) [Ratio] 0.0 /100 WBC Normal [facility] Comment on above: Order Comment: Speci men Type: BLOOD SPECIMENOrdering Facility: [facility] Address: [address] [place] [address] Performed By: #### 5 7021-8 ####[facility]IA [id number] [place] [address] [place] Platelet mean volume (Bld) [Entitic vol] 9.7 fL Normal 9.0-12.7 [facility] Comment on above: Order Comment: Speci men Type: BLOOD SPECIMENOrdering Facility: [facility] Address: [address] [place] [address] Performed By: #### 5 7021-8 ####[facility]IA [id number] [place] [address] [place] Platelets (Bld) [#/Vol] 266 10*3/uL Normal 150-400 [facility] Comment on above: Order Comment: Speci men Type: BLOOD SPECIMENOrdering Facility: [facility] Address: [address] [place] [address] Performed By: #### 5 7021-8 ####[facility] LABIA [id number] [place] [address] [place] RBC (Bld) [#/Vol] 4.65 10*6/uL Normal 3.90-5.20 [facility] Comment on above: Order Comment: Speci men Type: BLOOD SPECIMENOrdering Facility: [facility] Address: [address] [place] [address] Performed By: #### 5 7021-8 ####[facility]IA [id number] [place] [address] [place] WBC (Bld) [#/Vol] 9.72 10*3/uL Normal 3.70-11.00 [facility] Comment on above: Order Comment: Speci men Type: BLOOD SPECIMENOrdering Facility: [facility] Address: [address] [place] [address] Performed By: #### 5 7021-8 ####[facility] [id number] [place] [id number] [facility] [place] CNOVon 12-03-2024 CNOV Office Visit (FAMPWS ) -------- MOLLY HIDALGO ([id number]) 1960 F Date Time Provider Department 12/03/24 12:00 PM JESSICA PALENCIA During your visit today, we recorded the following information about you: Pulse Respiration Blood pressure Weight 80/minute 18/minute 126/84 60.9 kg Jessica Palencia APRN.CNP 12/03/2024 1:03 PM Signed 12/03/2024 Patient presents [...] claudication Mononucleosis Nephrolithiasis PAD (peripheral artery disease) ([facility]) Prediabetes Pure hypercholesterolemia 06/09/2005 Tobacco use ALLERGIES [...] JVD appreci (more content not included)... Normal [facility] Comprehensive metabolic 2000 panelon 12-03-2024 Albumin [Mass/Vol] 4.3 g/dL Normal 3.9-4.9 [facility] Comment on above: Order Comment: Speci men Type: BLOOD SPECIMEN [facility] Address: [address] [place] [address] Performed By: #### 2 132-9, 44348-0, 3016-3 #### [facility] CLIA [id number] [address] [place] [address] [place] ALP [Catalytic activity/Vol] 75 U/L Normal 34-123 [facility] Comment on above: Order Comment: Speci men Type: BLOOD SPECIMEN [facility] Address: [address] [place] [address] Performed By: #### 2 132-9, 40298-6, 3016-3 #### [facility] CLIA [id number] [address] [place] [address] [place] ALT [Catalytic activity/Vol] 30 U/L Normal 7-38 [facility] Comment on above: Order Comment: Speci men Type: BLOOD SPECIMEN [facility] Address: [address] [place] [address] Performed By: #### 2 132-9, 52024-4, 3016-3 #### [facility] CLIA [id number] [address] [place], [place] [address] [place] Anion gap [Moles/Vol] 12 mmol/L Normal 8-15 [facility] Comment on above: Order Comment: Speci men Type: BLOOD SPECIMEN [facility] Address: [address] [place] [address] Performed By: #### 2 132-9, 14479-2, 3016-3 #### [facility] CLIA [id number] [address] [place] [address] [place] AST [Catalytic activity/Vol] 21 U/L Normal 13-35 [facility] Comment on above: Order Comment: Speci men Type: BLOOD SPECIMEN [facility] Address: [address] [place] [address] Performed By: #### 2 132-9, 36889-8, 6-3 #### [facility] CLIA [id number] [address] [place] [address] [place] Bilirubin [Mass/Vol] 0.3 mg/dL Normal 0.2-1.3 [facility] Comment on above: Order Comment: Speci men Type: BLOOD SPECIMEN [facility] Address: [address] [place] [address] Performed By: #### 2 132-9, 69054-8, 3016-3 #### [facility] CLIA [id number] [address] [place] [address] [place] Calcium [Mass/Vol] 9.8 mg/dL Normal 8.5-10.2 [facility] Comment on above: Order Comment: Speci men Type: BLOOD SPECIMEN [facility] Address: [address] [place] [address] Performed By: #### 2 132-9, 28821-4, 3016-3 #### [facility] CLIA [id number] [address] [place] [address] [place] Chloride [Moles/Vol] 102 mmol/L Normal 98-107 [facility] Comment on above: Order Comment: Speci men Type: BLOOD SPECIMEN [facility] Address: [address] [place] [address] Performed By: #### 2 132-9, 01893-7, 3016-3 #### [facility] CLIA [id number] [address] [place] [address] [place] CO2 [Moles/Vol] 26 mmol/L Normal 22-30 [facility] Comment on above: Order Comment: Speci men Type: BLOOD SPECIMEN [facility] Address: [address] [place] [address] Performed By: #### 2 132-9, 89165-5, 3016-3 #### [facility] CLIA [id number] [address] [place] [address] [place] SHY Creatinine [Mass/Vol] 0.90 mg/dL Normal 0.58-0.96 [facility] Comment on above: Order Comment: Speci men Type: BLOOD SPECIMEN Ordering Facility: [facility] Address: [address] [place] [address] Performed By: #### 2 132-9, 49073-1, 3016-3 #### [facility] CLIA [id number] [address] [place] [address] [place] Creatinine and Glomerular filtration rate.predicted panel (S/P/Bld) 71 mL/min/1.73m??? Normal >=60 [facility] Comment on above: Order Comment: Speci men Type: BLOOD SPECIMEN Ordering Facility: [facility] Address: [address] [place] [address] Result Comment: Fanny mated Glomerular Filtration Rate [...] actual GFR. Performed By: #### 2 132-9, 35828-5, 6-3 #### [facility] CLIA [id number] [address] [place] [address] [place] Glucose [Mass/Vol] 101 mg/dL High 74-99 [facility] Comment on above: Order Comment: Caio cali Type: BLOOD SPECIMEN Ordering Facility: [facility] Address: [address] [place] [address] Result Comment: The [place] Diabetes Association (ADA) provides guidance for cutoff [...] Standards of Medical Care in Diabetes 2016, [place] [employer]. Diabetes Care. 2016.39(Suppl 1). Performed By: #### 2 132-9, 35106-1, 6-3 #### [facility] CLIA [id number] [address] [place] [address] [place] Potassium [Moles/Vol] 4.4 mmol/L Normal 3.7-5.1 [facility] Comment on above: Order Comment: Caio cali Type: BLOOD SPECIMEN Ordering Facility: [facility] Address: [address] [place] [address] Performed By: #### 2 132-9, 94232-6, 6-3 #### [facility] CLIA [id number] [address] [place] [address] [place] Protein [Mass/Vol] 7.1 g/dL Normal 6.3-8.0 [facility] Comment on above: Order Comment: Caio cali Type: BLOOD SPECIMEN Ordering Facility: [facility] Address: [address] [place] [address] Performed By: #### 2 132-9, 24898-9, 3016-3 #### [facility] CLIA [id number] [address] [place] [address] [place] Sodium [Moles/Vol] 140 mmol/L Normal 136-144 [facility] Comment on above: Order Comment: Speci men Type: BLOOD SPECIMEN Ordering Facility: [facility] Address: [address] [place] [address] Performed By: #### 2 132-9, 76486-5, 3016-3 #### [facility] CLIA [id number] [address] [place] [address] [place] Urea nitrogen [Mass/Vol] 16 mg/dL Normal 7-21 [facility] Comment on above: Order Comment: Speci men Type: BLOOD SPECIMEN Ordering Facility: [facility] Address: [address] [place] [address] Performed By: #### 2 132-9, 18365-3, 3016-3 #### [facility] CLIA [id number] [address] [place] [address] [place] TSH SerPl-aCncon 12-03-2024 TSH Qn 4.870 m[IU]/L High 0.270-4.200 [facility] Comment on above: Order Comment: Speci men Type: BLOOD SPECIMEN Ordering Facility: [facility] Address: [address] [place] [address] Performed By: #### 2 132-9, 16405-4, 3016-3 #### [facility] CLIA [id number] [address] [place] [address] [place] Vit B12 SerPl-mCncon 025 Cobalamin (Vitamin B12) [Mass/Vol] 405 pg/mL Normal 232-1245 [facility] Comment on above: Order Comment: Speci men Type: BLOOD SPECIMEN Ordering Facility: [facility] Address: [address] [place] [address] Performed By: #### 2 132-9, 11321-0, 3016-3 #### [facility] CLIA [id number] [address] [place] [address] [place] [address] [place] Spine Lumbar (Routine)on Spine Lumbar (Routine) [facility] Imaging Services [address] [place] [address] Spine Lumbar (Routine) MR#: [id number] Acct: [id number] Name: MOLLY HIDALGO Rep #: [id number] : 1960 F 64 From: Eze Kim PCP: Dr. Roger Wilburn MD Status: REG CLI Study: Spine Lumbar (Routine) Date of Exam: 11/11/24 Exam# [id number] Ordering Dr: Kate Rivas PROCEDURE: MRI lumbar [...] fusion/decompression at L3-4. 4. Levoscoliosis. Reading Location: [facility] CC: KIMBERLY Johnson; Dr. Roger Wilburn MD Burial Vault Setter: Signed Normal [facility] Cerv Spine 2 or 3 Viewson Cerv Spine 2 or 3 Views [facility] [address] [place] [address] Cerv Spine 2 or 3 Views MR#: [id number] Acct: [id number] Name: MOLLY HIDALGO Rep #: [id number] : 1960 F 63 From: Kirill pimentel MD PCP: Dr. Roger Wilburn MD Status: DEP AMB Study: Cerv Spine 2 or 3 Views Date of Exam: 10/07/24 Exam# [id number] Ordering Dr: Kate Rivas [id number] INDICATION: pain -- flex/ext EXAMINATION/TECHNIQUE: X-RAY - [...] Signed: Kirill Gonzales MD at 22:02 EST Reading Location ID and State: [facility] / [place] Tel , Service support , CC: KIMBERLY Johnson; Dr. Roger Wilburn MD Burial Vault Setter: Signed Normal [facility] L/S Spine Min 4 Viewson 09-19 L/S Spine Min 4 Views [facility] [address] [place] [address] L/S Spine Min 4 Views MR#: [id number] Acct: [id number] Name: MOLLY HIDALGO Rep #: [id number] : 1960 F 63 From: Kirill pimentel MD PCP: Dr. Roger Wilburn MD Status: DEP AMB Study: L/S Spine Min 4 Views Date of Exam: 10/07/24 Exam# [id number] Ordering Dr: Kate Rivas [id number] INDICATION: pain -- please do upright AP, [...] mildly progressed from prior. Electronically Signed: Kirill Gonzlaes MD at 22:01 EST , CC: KIMBERLY Johnson; Dr. Roger Wilburn MD Burial Vault Setter: Signed Normal [facility] Orthopedic Visit Reporton Orthopedic Visit Report [facility] [address] [place] [address] [address] [place] [address] OFFICE VISIT Date of Service: 10/07/24 MR#: [id number] Acct: [id number] Name: MOLLY HIDALGO Rep #: [id number] : 1960 Provider: KIMBERLY Johnson Age/Sex: 63/F Location: [facility] Status: Signed Intake Vital Signs 10/07/24 13:02 [...] decisions made by me, KIMBERLY Johnson 10/07/24 0674. Part of today???s visit was documented by Agatha Luna ATC, acting as scribe. MOLLY HIDALGO is a 63 year old F here today for lumbar spine pain. Patient states the back has been bothering her for at least 15 years. Patient had a spinal fusion done in 2017 and she thinks it was done with [facility]. She says in 2017 before her lumbar [...] 5x5 pow (more content not included)... Normal [facility] Cerv Spine 2 or 3 Viewson Cerv Spine 2 or 3 Views [facility] [address] [place], [place] [address] Cerv Spine 2 or 3 Views MR#: [id number] Acct: [id number] Name: MOLLY HIDALGO Rep #: [id number] : 1960 F 63 From: Daniel Givens MD PCP: Dr. Roger Wilburn MD Status: REG [facility] Study: Cerv Spine 2 or 3 Views Date of Exam: 09/23/24 Exam# [id number] Ordering Dr: Omer Hall MD [id number] STUDY: X-RAY - CERVICAL SPINE REASON FOR [...] Omer Hall MD; Dr. Roger Wilburn MD Burial Vault Setter: Signed [facility] 06-07-2024 [facility] Telephone (FAMWS) -------- MOLLY HIDALGO ([id number]) 1960 F Date Time Provider Department 06/07/24 JESSICA PALENCIA During your visit today, we recorded the following information about you: Jessica Palencia APRN.[facility] 06/07/2024 6:52 AM Signed White count is [...] message with results, notes from Jessica Palencia TRANSFER MACHINE OPERATOR, rx sent to [facility] pharmacy on patient voicemail. Allergies As of [...] tabletRfl: 0 URIC ACID [SQURIC] Order #: [id number] FUTURE COMPLETE BLOOD COUNT AND DIFFERENTIAL [SQCBCDIF] Order #: [id number] FUTURE Prescriptions as of 06/07/2024 - colchicine [...] Status:Closed by ROBERTA DIALLO on 06/07/24 Normal [facility] CBC W Auto Differential pane l (Bld)on 06-05-2024 Basophils (Bld) [#/Vol] 0.12 10*3/uL High <0.11 [facility] Comment on above: Order Comment: Speci men Type: BLOOD SPECIMEN Ordering Facility: [facility] Address: [address] [place] [address] Performed By: #### 2 132-9, 74627-1, 6-3 #### [facility] CLIA [id number] [address] [place] [address] [place] Basophils/100 WBC (Bld) 0.8 % Normal [facility] Comment on above: Order Comment: Speci men Type: BLOOD SPECIMEN Ordering Facility: [facility] Address: [address] [place] [address] Performed By: #### 2 132-9, 85514-4, 6-3 #### [facility] CLIA [id number] [address] [place] [address] [place] Differential cell count method Nom (Bld) Auto Normal [facility] Comment on above: Order Comment: Speci men Type: BLOOD SPECIMEN Ordering Facility: [facility] Address: [address] [place] [address] Performed By: #### 2 132-9, 26058-8, 6-3 #### [facility] CLIA [id number] [address] [place] [address] [place] Eosinophils (Bld) [#/Vol] 0.94 10*3/uL High <0.46 [facility] Comment on above: Order Comment: Speci men Type: BLOOD SPECIMEN Ordering Facility: [facility] Address: [address] [place] [address] Performed By: #### 2 132-9, 63122-4, 3015-3 #### [facility] CLIA [id number] [address] [place] [address] [place] Eosinophils/100 WBC (Bld) 6.6 % Normal [facility] Comment on above: Order Comment: Speci men Type: BLOOD SPECIMEN Ordering Facility: [facility] Address: [address] [place] [address] Performed By: #### 2 132-9, 29689-2, 3 #### [facility] CLIA [id number] [address] [place] [address] [place] Erythrocyte distribution width (RBC) [Ratio] 12.5 % Normal 11.5-15.0 [facility] Comment on above: Order Comment: Speci men Type: BLOOD SPECIMEN Ordering Facility: [facility] Address: [address] [place] [address] Performed By: #### 2 132-9, 82193-6, 3015-3 #### [facility] CLIA [id number] [address] [place] [address] [place] Hematocrit (Bld) [Volume fraction] 43.5 % Normal 36.0-46.0 [facility] Comment on above: Order Comment: Speci men Type: BLOOD SPECIMEN Ordering Facility: [facility] Address: [address] [place] [address] Performed By: #### 2 132-9, 57082-0, 3016-3 #### [facility] CLIA [id number] [address] [place] [address] [place] Hemoglobin (Bld) [Mass/Vol] 13.7 g/dL Normal 11.5-15.5 [facility] Comment on above: Order Comment: Speci men Type: BLOOD SPECIMEN Ordering Facility: [facility] Address: [address] [place] [address] Performed By: #### 2 132-9, 14723-5, 3016-3 #### [facility] CLIA [id number] [address] [place] [address] [place] Immature granulocytes (Bld) [#/Vol] 0.09 10*3/uL Normal <0.10 [facility] Comment on above: Order Comment: Speci men Type: BLOOD SPECIMEN Ordering Facility: [facility] Address: [address] [place] [address] Performed By: #### 2 132-9, 76364-3, 6-3 #### [facility] CLIA [id number] [address] [place] [address] [place] Immature granulocytes/100 WBC (Bld) 0.6 % Normal [facility] Comment on above: Order Comment: Speci men Type: BLOOD SPECIMEN Ordering Facility: [facility] Address: [address] [place] [address] Performed By: #### 2 132-9, 55684-4, 6-3 #### [facility] CLIA [id number] [address] [place] [address] [place] Lymphocytes (Bld) [#/Vol] 3.88 10*3/uL Normal 1.00-4.00 [facility] Comment on above: Order Comment: Speci men Type: BLOOD SPECIMEN Ordering Facility: [facility] Address: [address] [place] [address] Performed By: #### 2 132-9, 47874-5, 6-3 #### [facility] CLIA [id number] [address] [place] [address] [place] Lymphocytes/100 WBC (Bld) 27.2 % Normal [facility] Comment on above: Order Comment: Speci men Type: BLOOD SPECIMEN Ordering Facility: [facility] Address: [address] [place] [address] Performed By: #### 2 132-9, 76381-1, 6-3 #### [facility] CLIA [id number] [address] [place] [address] [place] MCH (RBC) [Entitic mass] 30.0 pg Normal 26.0-34.0 [facility] Comment on above: Order Comment: Speci men Type: BLOOD SPECIMEN Ordering Facility: [facility] Address: [address] [place] [address] Performed By: #### 2 132-9, 15182-3, 6-3 #### [facility] CLIA [id number] [address] [place] [address] [place] MCHC (RBC) [Mass/Vol] 31.5 g/dL Normal 30.5-36.0 [facility] Comment on above: Order Comment: Speci men Type: BLOOD SPECIMEN Ordering Facility: [facility] Address: [address] [place] [address] Performed By: #### 2 132-9, 62762-6, 6-3 #### [facility] CLIA [id number] [address] [place] [address] [place] MCV (RBC) [Entitic vol] 95.4 fL Normal 80.0-100.0 [facility] Comment on above: Order Comment: Speci men Type: BLOOD SPECIMEN Ordering Facility: [facility] Address: [address] [place] [address] Performed By: #### 2 132-9, 03496-1, 3016-3 #### [facility] CLIA [id number] [address] [place] [address] [place] Monocytes (Bld) [#/Vol] 1.13 10*3/uL High <0.87 [facility] Comment on above: Order Comment: Speci men Type: BLOOD SPECIMEN Ordering Facility: [facility] Address: [address] [place] [address] Performed By: #### 2 132-9, 72962-8, 3015-3 #### [facility] CLIA [id number] [address] [place] [address] [place] Monocytes/100 WBC (Bld) 7.9 % Normal [facility] Comment on above: Order Comment: Speci men Type: BLOOD SPECIMEN Ordering Facility: [facility] Address: [address] [place] [address] Performed By: #### 2 132-9, , 3 #### [facility] CLIA [id number] [address] [place] [address] [place] Neutrophils (Bld) [#/Vol] 8.13 10*3/uL High 1.45-7.50 [facility] Comment on above: Order Comment: Speci men Type: BLOOD SPECIMEN Ordering Facility: [facility] Address: [address] [place] [address] Performed By: #### 2 132-9, 69860-0, 3 #### [facility] CLIA [id number] [address] [place] [address] [place] Neutrophils/100 WBC (Bld) 56.9 % Normal [facility] Comment on above: Order Comment: Speci men Type: BLOOD SPECIMEN Ordering Facility: [facility] Address: [address] [place] [address] Performed By: #### 2 132-9, 77507-3, 3015-3 #### [facility] CLIA [id number] [address] [place], [place] [address] [place] Nucleated RBC (Bld) [#/Vol] 10*3/uL Normal <0.01 [facility] Comment on above: Order Comment: Speci men Type: BLOOD SPECIMEN Ordering Facility: [facility] Address: [address] [place] [address] Performed By: #### 2 132-9, 90177-9, 6-3 #### [facility] CLIA [id number] [address] [place], [place] [address] [place] Nucleated RBC/100 WBC (Bld) [Ratio] 0.0 /100 WBC Normal [facility] Comment on above: Order Comment: Speci men Type: BLOOD SPECIMEN Ordering Facility: [facility] Address: [address] [place] [address] Performed By: #### 2 132-9, 78461-3, 3015-3 #### [facility] CLIA [id number] [address] [place] [address] [place] Platelet mean volume (Bld) [Entitic vol] 9.8 fL Normal 9.0-12.7 [facility] Comment on above: Order Comment: Speci men Type: BLOOD SPECIMEN Ordering Facility: [facility] Address: [address] [place] [address] Performed By: #### 2 132-9, 98544-2, 3015-3 #### [facility] CLIA [id number] [address] [place], [place] [address] [place] Platelets (Bld) [#/Vol] 323 10*3/uL Normal 150-400 [facility] Comment on above: Order Comment: Speci men Type: BLOOD SPECIMEN Ordering Facility: [facility] Address: [address] [place] [address] Performed By: #### 2 132-9, 36814-5, 6-3 #### [facility] CLIA [id number] [address] [place] [address] [place] RBC (Bld) [#/Vol] 4.56 10*6/uL Normal 3.90-5.20 [facility] Comment on above: Order Comment: Speci men Type: BLOOD SPECIMEN Ordering Facility: [facility] Address: [address] [place] [address] Performed By: #### 2 132-9, 86666-1, 3016-3 #### [facility] CLIA [id number] [address] [place] [address] [place] WBC (Bld) [#/Vol] 14.29 10*3/uL High 3.70-11.00 [facility] Comment on above: Order Comment: Speci men Type: BLOOD SPECIMEN Ordering Facility: [facility] Address: [address] [place] [address] Performed By: #### 2 132-9, 15618-8, 3016-3 #### [facility] CLIA [id number] [address] [place] [address] [place] CNOVon 06-05-2024 CNOV Office Visit (EVELYNWS ) -------- MOLLY HIDALGO ([id number]) 1960 F Date Time Provider Department 06/05/24 12:40 PM JESSICA PALENCIA During your visit today, we recorded the following information about you: Pulse Respiration Blood pressure Weight 82/minute 18/minute 116/82 59.9 kg Height 1.515 m Jessica Palencia APRN.CNP 06/05/2024 2:37 PM Signed 06/05/2024 Patient presents [...] liver 10/19/2023 Fibromyalgia History of alcohol dependence ([facility]) History of drug abuse ([facility]) marijuana, cocaine, acid, methamphetamines, speed. Sober since age 20s Hypertension Iron deficiency anemia Lumbar stenosis with neurogenic claudication Mononucleosis Nephrolithiasis PAD (peripheral artery disease) ([facility]) Prediabetes Pure hypercholesterolemia 06/09/2005 Tobacco use ALLERGIES [...] or palpitations (more content not included)... Normal [facility] Halima 06-05-2024 [facility] Telephone (FAMPWS) -------- ROCKYMOLLY ([id number]) 1960 F Date Time Provider Department 06/05/24 JESSICA PALENCIA During your visit today, we recorded the following information about you: Trista Espinosa LPN 06/05/2024 3:09 PM Signed ----- Message from Jessica Palencia APRN.[employer] sent at 06/05/2024 2:24 PM EDT ----- Xray shows some mild arthritis. RACHAEL Goodwin Michelle, LPN 06/05/2024 3:33 PM Signed Telephoned patient, [...] Other and unspecified alcohol dependence, unspe* 03/15/2023 H - PAST MEDICAL HISTORY OF 08/17/2018 CHEST [...] Status:Closed by LIBERTAD COLEMAN on 06/06/24 Normal [facility] Comprehensive metabolic 2000 panelon 06-05-2024 Albumin [Mass/Vol] 4.4 g/dL Normal 3.9-4.9 [facility] Comment on above: Order Comment: Speci men Type: BLOOD SPECIMENOrdering Facility: [facility] Address: [address] [place] [address] Performed By: #### 2 4323-8, 23248-6, 3084-1 ####[facility] [id number] [place] [address] [place] ALP [Catalytic activity/Vol] 71 U/L Normal 34-123 [facility] Comment on above: Order Comment: Speci men Type: BLOOD SPECIMENOrdering Facility: [facility] Address: [address] [place] [address] Performed By: #### 2 4323-8, 53014-9, 3084-1 ####[facility] [id number] [place] [address] [place] ALT [Catalytic activity/Vol] 21 U/L Normal 7-38 [facility] Comment on above: Order Comment: Speci men Type: BLOOD SPECIMENOrdering Facility: [facility] Address: [address] [place] [address] Performed By: #### 2 4323-8, 92143-6, 3084-1 ####[facility] [id number] [place] [address] [place] Anion gap [Moles/Vol] 14 mmol/L Normal 8-15 [facility] Comment on above: Order Comment: Speci men Type: BLOOD SPECIMENOrdering Facility: [facility] Address: [address] [place] [address] Performed By: #### 2 4323-8, 15961-8, 308-1 ####[facility] [id number] [place] [address] [place] AST [Catalytic activity/Vol] 22 U/L Normal 13-35 [facility] Comment on above: Order Comment: Speci men Type: BLOOD SPECIMENOrdering Facility: [facility] Address: [address] [place] [address] Performed By: #### 2 4323-8, 16071-0, 308- ####[facility] [id number] [place] [address] [place] Bilirubin [Mass/Vol] 0.2 mg/dL Normal 0.2-1.3 [facility] Comment on above: Order Comment: Speci men Type: BLOOD SPECIMENOrdering Facility: [facility] Address: [address] [place] [address] Performed By: #### 2 4323-8, 65556-0, 308-1 ####[facility] [id number] [place] [address] [place] Calcium [Mass/Vol] 9.6 mg/dL Normal 8.5-10.2 [facility] Comment on above: Order Comment: Speci men Type: BLOOD SPECIMENOrdering Facility: [facility] Address: [address] [place] [address] Performed By: #### 2 4323-8, 55669-4, 3084-1 ####[facility] [id number] [place] [address] [place] Chloride [Moles/Vol] 104 mmol/L Normal 98-107 [facility] Comment on above: Order Comment: Speci men Type: BLOOD SPECIMENOrdering Facility: [facility] Address: [address] [place] [address] Performed By: #### 2 4323-8, 19270-3, 3084-1 ####[facility] [id number] [place] [address] [place] CO2 [Moles/Vol] 21 mmol/L Low 22-30 [facility] Comment on above: Order Comment: Speci men Type: BLOOD SPECIMENOrdering Facility: [facility] Address: [address] [place] [address] Performed By: #### 2 4323-8, 74815-6, 3084-1 ####[facility] LABIA [id number] [place] [address] [place] Creatinine [Mass/Vol] 0.85 mg/dL Normal 0.58-0.96 [facility] Comment on above: Order Comment: Speci men Type: BLOOD SPECIMENOrdering Facility: [facility] Address: [address] [place] [address] Performed By: #### 2 4323-8, 15969-9, 3084-1 ####[facility] LABIA [id number] [place] [address] [place] Creatinine and Glomerular filtration rate.predicted panel (S/P/Bld) 77 mL/min/1.73m??? Normal >=60 [facility] Comment on above: Order Comment: Speci men Type: BLOOD SPECIMENOrdering Facility: [facility] Address: [address] [place] [address] Result Comment: Fanny mated Glomerular Filtration Rate [...] reflect actual GFR. Performed By: #### 2 4323-8, 06479-4, 3083- ####[facility] LABCLIA [id number] [address] [address] [place] Glucose [Mass/Vol] 98 mg/dL Normal 74-99 [facility] Comment on above: Order Comment: Caio cali Type: BLOOD SPECIMENOrdering Facility: [facility] Address: [address] [place] [address] Result Comment: The [place] Diabetes Association (ADA) provides guidance for cutoff [...] Standards of Medical Care in Diabetes 2016, [place] Diabetes Association. Diabetes Care. 2016.39(Suppl 1). Performed By: #### 2 4323-8, 39732-9, 3083-09 ####[facility] LABCLIA [id number] [address] [address] [place] Potassium [Moles/Vol] 3.8 mmol/L Normal 3.7-5.1 [facility] Comment on above: Order Comment: Caio cali Type: BLOOD SPECIMENOrdering Facility: [facility] Address: [address] [place] [address] Performed By: #### 2 4323-8, 77860-4, 3083-1 ####[facility] LABCLIA [id number] [address] [address] [place] Protein [Mass/Vol] 7.2 g/dL Normal 6.3-8.0 [facility] Comment on above: Order Comment: Speci men Type: BLOOD SPECIMENOrdering Facility: [facility] Address: [address] [place] [address] Performed By: #### 2 4323-8, 25018-1, 308-1 ####[facility] LABIA [id number] [place] [address] [place] Sodium [Moles/Vol] 139 mmol/L Normal 136-144 [facility] Comment on above: Order Comment: Speci men Type: BLOOD SPECIMENOrdering Facility: [facility] Address: [address] [place] [address] Performed By: #### 2 4323-8, 37040-5, 3083-1 ####[facility] LABIA [id number] [place] [address] [place] Urea nitrogen [Mass/Vol] 11 mg/dL Normal 7-21 [facility] Comment on above: Order Comment: Speci men Type: BLOOD SPECIMENOrdering Facility: [facility] Address: [address] [place] [address] Performed By: #### 2 4323-8, 57983-2, 3083-1 ####[facility] LABIA [id number] [place] [id number] [place] HbA1c (Bld)on 06-05-2024 Average glucose Estimated from glycated hemoglobin (Bld) [Mass/Vol] 120 mg/dL Normal [facility] Comment on above: Order Comment: Speci men Type: BLOOD SPECIMENOrdering Facility: [facility] Address: [address] [place] [address] Result Comment: eAG: (Estimated average glucose) is a calculated value from HgbA1c and is accounting representative of the average blood glucose level in the last 2-3 month period. Performed By: #### 5 5454-3 ####[facility] LABCLIA [id number] [place] [address] [place] HbA1c (Bld) [Mass fraction] 5.8 % High 4.3-5.6 [facility] Comment on above: Order Comment: Speci men Type: BLOOD SPECIMENOrdering Facility: [facility] Address: [address] [place] [address] Result Comment: Amer [place] Diabetes Association guidelines indicate that patients with HgbA1c in the range 5.7-6.4% are at increased risk for development of diabetes, and intervention by lifestyle modification may be beneficial. HgbA1c greater or equal to 6.5% is considered diagnostic of diabetes. Performed By: #### 5 5454-3 ####[facility] LABCLIA [id number] [place] [address] [place] Lipid 1996 panelon 4 Cholesterol [Mass/Vol] 156 mg/dL Normal <[address] [facility] Comment on above: Order Comment: Speci men Type: BLOOD SPECIMENOrdering Facility: [facility] Address: [address] [place] [address] Result Comment: <200 mg/dL, Desirable 200-239 mg/dL, Borderline high >239 mg/dL, High Performed By: #### 2 4323-8, 78829-2, 308-1 ####[facility] LABCLIA [id number] [address] [place] Cholesterol in HDL [Mass/Vol] 53 mg/dL Normal >39 [facility] Comment on above: Order Comment: Speci men Type: BLOOD SPECIMENOrdering Facility: [facility] Address: [address] [place] [address] Result Comment: 40-5 9 mg/dL, Acceptable >59 mg/dL, High: Negative risk factor for coronary heart disease <40 mg/dL, Low: Positive risk factor for coronary heart disease Performed By: #### 2 4323-8, 11103-8, 3084-1 ####[facility] LABCLIA [id number] [address] [address] [place] Cholesterol in LDL [Mass/Vol] 48 mg/dL Normal <100 [facility] Comment on above: Order Comment: Speci men Type: BLOOD SPECIMENOrdering Facility: [facility] Address: [address] [place] [address] Result Comment: <100 mg/dL, Optimal 100-129 mg/dL, Near optimal/above optimal 130-159 mg/dL, Borderline high 160-189 mg/dL, High >189 mg/dL, Very high Secondary prevention optimal LDL Cholesterol levels are recommended to be < 70 mg/dL Performed By: #### 2 4323-8, 43986-3, 3083-09 ####[facility] LABCLIA [id number] [place] [address] [place] Cholesterol in LDL/Cholesterol in HDL [Mass ratio] 0.91 {ratio} Normal <2.54 [facility] Comment on above: Order Comment: Speci men Type: BLOOD SPECIMENOrdering Facility: [facility] Address: [address] [place] [address] Result Comment: Demario bennett: 1. National Cholesterol Education Program ATP III Guideline At-A-Glance Quick Desk Reference: National Heart, Lung, and Blood [place]. National Institutes of Health. 2001: NIH Publication No. 01-3305. 2. An International Atherosclerosis Society position paper: global recommendations for the management of dyslipidemia: executive summary, Atherosclerosis. 2014: 232(2):410-413. Performed By: #### 2 4323-8, 78146-2, 3083-09 ####[facility] LABIA [id number] [place] [id number] [place] Cholesterol in VLDL [Mass/Vol] 55 mg/dL High <30 [facility] Comment on above: Order Comment: Speci men Type: BLOOD SPECIMENOrdering Facility: [facility] Address: [address] [place] [address] Performed By: #### 2 4323-8, 22295-9, 3083-09 ####[facility] LABCLIA [id number] [address] [address] [place] Cholesterol non HDL [Mass/Vol] 103 mg/dL Normal <130 [facility] Comment on above: Order Comment: Speci men Type: BLOOD SPECIMENOrdering Facility: [facility] Address: [address] [place] [address] Result Comment: <130 mg/dL, Optimal 130-159 mg/dL, Near optimal/above optimal 160-189 mg/dL, Borderline high 190-219 mg/dL, High >219 mg/dL, Very high Secondary prevention optimal non HDL Cholesterol levels are recommended to be <100 mg/dL Performed By: #### 2 4323-8, 23617-5, 3083- ####[facility] LABCLIA [id number] [place] [address] [place] Cholesterol.total/Chol esterol in HDL [Mass ratio] 2.94 {ratio} Normal <5.10 [facility] Comment on above: Order Comment: Speci men Type: BLOOD SPECIMENOrdering Facility: [facility] Address: [address] [place] [address] Performed By: #### 2 4323-8, 45748-5, 3083- ####[facility] LABCLIA [id number] [place] [id number] [place] FASTING TIME 15 hrs Normal [facility] Comment on above: Order Comment: Speci men Type: BLOOD SPECIMENOrdering Facility: [facility] Address: [address] [place] [id number] Performed By: #### 2 4323-8, 40903-8, 3083- ####[facility] LABCLIA [id number] [place] [address] [place] Triglyceride [Mass/Vol] 276 mg/dL High <150 [facility] Comment on above: Order Comment: Speci men Type: BLOOD SPECIMENOrdering Facility: [facility] Address: [address] [place] [id number] Result Comment: <150 mg/dL, Normal 150-199 mg/dL, Borderline high 200-499 mg/dL, High >499 mg/dL, Very high Performed By: #### 2 4323-8, 00935-8, 3084-1 ####[facility] LABCLIA [id number] [address] [place] Urate SerPl-mCncon 4 Urate [Mass/Vol] 7.2 mg/dL High 2.5-6.6 [facility] Comment on above: Order Comment: Speci men Type: BLOOD SPECIMENOrdering Facility: [facility] Address: [address] [place] [address] Performed By: #### 2 4323-8, 80015-9, 3084-1 ####[facility] LABCLIA [id number] [address] OF [facility] XR DIGIT 3V FRONTAL/LAT/OBL RTon 06-05-2024 XR [...] space narrowing. IMPRESSION: No acute osseous abnormality Burial Vault Setter: JANIB Transcribe Date/Time: Jun 05 2024 2:05P Dictated by : TISHA WHITEHEAD MD This examination was interpreted and the report reviewed and electronically signed by: TISHA WHITEHEAD MD on Jun 05 2024 2:07PM EST [id number] Normal [facility] XR Finger - right AP and Lat eral and obliqueon 06-05-2024 IMPRESSION: No acute osseous abnormality Burial Vault Setter: PSCB Transcribe Date/Time: Jun 05 2024 2:05P [...] joint space narrowing. DIVISION OF RADIOLOGY Provider, [facility] - 06/05/2024 * * *Final Report* [...] narrowing. IMPRESSION IMPRESSION: No acute osseous abnormality Burial Vault Setter: [facility] Transcribe Date/Time: Jun 05 2024 2:05P Dictated by : TISHA WHITEHEAD MD This examination was interpreted and the report reviewed and electronically signed by: TISHA WHITEHEAD MD on Jun 05 2024 2:07PM EST [facility] Radiology Study observation (narrative) [facility] XR Finger - right AP and Lat eral and obliqueOrdered By: Ccf Provider on 06-05-2024 [facility] Colonoscopy [facility] observatio non [facility] Patient Name: Molly Hidalgo Procedure Date: 04/09/2024 8:47 AM Date of : 1960 Admit Type: Outpatient Age: 63 Gender: Female Note Status: Finalized Procedure: Colonoscopy Indications: High risk colon cancer surveillance: Personal history of colonic polyps Providers: Roberth Wills MD Patient Profile: This is a 63 year old female. Refer to note in patient chart for documentation of history and physical. Last Colonoscopy: 5 years ago. Referring Physician: Roberth Wills MD (Referring MD), Ed Wilburn (Referring [...] previous diet. (more content not included)... PROVATION [facility] Radiology Study observation (narrative) [facility] CNOVon 03-11-2024 CNOV Office Visit (MOISES ) -------- ROCKYMOLLY Gricelda ([id number]) 1960 F Date Time Provider Department 03/11/24 1:20 PM LORENZA MAJOR During your visit today, we recorded the following information about you: Pulse Blood pressure Weight Height 81/minute 118/84 60.3 kg 1.524 m Lorenza Major DO 03/11/2024 2:04 PM [facility] SECTION OF REGIONAL CARDIOLOGY [facility] OUTPATIENT VISIT DATE March 11, 2024 PRIMARY CARE PHYSICIAN: Negrito Wilburn [address] [place] [address] HISTORY OF PRESENT ILLNESS: Ms. 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 She is a current smoker, social drinker. [...] immunocompromised state. Neurol (more content not included)... Normal [facility] 03-11-2024 [facility] Telephone ([id number]) -------- MOLLY HIDALGO ([id number]) 1960 F Date Time Provider Department 03/11/24 LORENZA MAJOR During your visit today, we recorded the following information about you: Fernando Staton MA 03/11/2024 1:55 PM Signed Patient was seen on March 11, [address] Major. The following test(s) were ordered: Stress test Please call patient to schedule testing. Thank you! VIET Padron Kylah 03/12/2024 10:02 AM Signed First attempt at contacting patient, left VM to schedule stress test Noris Holm 03/13/2024 9:30 AM Signed Pt is scheduled [...] Encounter Status:Closed by FERNANDO STATON on 03/11/24 [facility] Laboratory - Drug toxicology Ordered By: Omer Hall on 01-11-2024 Amphetamines Ql (U) Negative <1000 ng/mL [facility] Benzodiazepines Ql (U) Negative < 200 ng/mL [facility] Cannabinoids Screen Ql (U) Negative < 50 ng/mL [facility] Cocaine Ql (U) Negative < 300 ng/mL [facility] Opiates Ql (U) Negative < 300 ng/mL [facility] No Panel InformationOrdered By: Omer Hall on 01-11-2024 MDMA (Ecstasy) Screen Positive < 500 ng/mL [facility] Urine Barbiturates Screen Negative < 200 ng/mL [facility] Urine Drug Screen Comment [facility] Comment on above: CONFIRMATORY TESTING FOR ALL [...] Urine Methadone Screen Negative < 300 ng/mL [facility] Urine phencyclidine (PCP) de tectionOrdered By: Omer Hall on 01-11-2024 Phencyclidine Ql (U) Negative < 25 ng/mL [facility] UA DIP, URINE (POC)on 2023 BILIRUBIN UA (POCT) Negative Negative [facility] CLARITY UA (POCT) Clear [facility] COLOR UA (POCT) Yellow [facility] GLUCOSE UA (POCT) Negative Negative mg/dL [facility] Hemoglobin Ql (U) Negative Negative [facility] KETONE UA (POCT) Negative Negative mg/dL [facility] LEUKOCYTES UA (POCT) Trace Abnormal Negative [facility] NITRITE UA (POCT) Negative Negative [facility] PH UA (POCT) 5.5 4.5 - 8.0 [facility] Protein Ql (U) Negative Negative mg/dL [facility] SPECIFIC GRAVITY UA (POCT) 1.025 1.005 - 1.030 [facility] UROBILINOGEN UA (POCT) 0.2 E.U./dL Haylie l E.U./dL [facility] STREP A MOLECULAR (POC)on Procedural Control Valid [facility] Strep A (POCT) Negative Negative [facility] Halima 10-19-2023 LUCE[facility] Telephone (PULMJM) -------- ROCKYMOLLY ([id number]) 1960 F Date Time Provider Department 10/19/23 [...] coronary stent. She has never seen a range manager or had any heart procedures done. She [...] Date Reviewed: 09/26/2023 Reviewed by: Tatyana Perez APRN.CNP - Fully Assessed Reason for Visit: Results [95] Primary Visit Diagnosis:Tobacco abuse [Z72.0] Other Visit Diagnoses:Coronary artery calcification seen on CAT scan [I25.10] Encounter for screening for lung cancer [Z12.2] Order(s):CONSULT TO CARDIOLOGY [9004] Order #: [id number]: [address] LUNG SCREEN MARGUERITE SAAVEDRA [[id number]] Order #: [id number] FUTURE Prescriptions as of 10/19/2023 - metFORMIN [...] Other and unspecified alcohol dependence, unspe* 03/15/2023 H - PAST MEDICAL HISTORY OF 08/17/2018 CHEST [...] Encounter Status:Closed by TATYANA PEREZ on 10/19/23 [facility] EDDY SCREENING W TOMOon 06-13 [facility] NM CARDIAC PERF STRESS/PHARM on 03-06-2023 [facility] PA and Lateralon IMPRESSION: No acute radiographic abnormality. Burial Vault Setter: PSCB Transcribe Date/Time: Feb 16 2023 2:06P Dictated by : RUDY ATKINSON MD This examination was interpreted and the report reviewed and electronically signed by: RUDY ATKINSON MD on Feb 16 2023 2:07PM [facility] DIVISION OF RADIOLOGY * * [...] and degenerative change DIVISION OF RADIOLOGY Provider, [facility] - 02/16/2023 * * *Final Report* * [...] change IMPRESSION IMPRESSION: No acute radiographic abnormality. Burial Vault Setter: PSCB Transcribe Date/Time: Feb 16 2023 2:06P Dictated by : RUDY ATKINSON MD This examination was interpreted and the report reviewed and electronically signed by: RUDY ATKINSON MD on Feb 16 2023 2:07PM EST [facility] Radiology Study observation (narrative) [facility] XR Chest PA and LateralOrder ed By: Cc Provider on 02-16-2023 [facility] Laboratory - Drug toxicology Ordered By: Dr. Hall on 01-10-2023 Amphetamines Ql (U) Negative <1000 ng/mL [facility] Benzodiazepines Ql (U) Negative < 200 ng/mL [facility] Cannabinoids Screen Ql (U) Negative < 50 ng/mL [facility] Cocaine Ql (U) Negative < 300 ng/mL [facility] Opiates Ql (U) Negative < 300 ng/mL [facility] No Panel InformationOrdered By: Dr. Hall on 01-10-2023 MDMA (Ecstasy) Screen Positive < 500 ng/mL [facility] Urine Barbiturates Screen Negative < 200 ng/mL [facility] Urine Drug Screen Comment [facility] Comment on above: CONFIRMATORY TESTING FOR ALL [...] TESTING MUST BE ORDERED SEPARATELY. USE TESTMNEMONIC: [facility] Urine Methadone Screen Negative < 300 ng/mL [facility] Urine phencyclidine (PCP) de tectionOrdered By: Dr. Hall on 01-10-2023 Phencyclidine Ql (U) Negative < 25 ng/mL [facility] EDDY SCREENINGon 03-14-2022 [facility] CBC panel Auto (Bld)on 03-07 Erythrocyte distribution width (RBC) [Ratio] 12.5 % 11.5 - 15.0 % [facility] Hematocrit (Bld) [Volume fraction] 39.6 % 36.0 - 46.0 % [facility] Hemoglobin (Bld) [Mass/Vol] 12.9 g/dL 11.5 - 15.5 g/dL [facility] MCH (RBC) [Entitic mass] 30.3 pg 26.0 - 34.0 pg [facility] MCHC (RBC) [Mass/Vol] 32.6 g/dL 30.5 - 36.0 g/dL [facility] MCV (RBC) [Entitic vol] 93.0 fL 80.0 - 100.0 fL [facility] Nucleated RBC (Bld) [#/Vol] 10*3/uL <0.01 k/uL [facility] Platelet mean volume (Bld) [Entitic vol] 9.5 fL 9.0 - 12.7 fL [facility] Platelets (Bld) [#/Vol] 332 10*3/uL 150 - 400 k/uL [facility] RBC (Bld) [#/Vol] 4.26 10*6/uL 3.90 - 5.2 0 m/uL [facility] WBC (Bld) [#/Vol] 13.05 10*3/uL High 3.70 - 11 .00 k/uL [facility] Comprehensive metabolic 2000 panelon 03-07-2022 Albumin [Mass/Vol] 4.2 g/dL 3.9 - 4.9 g/dL [facility] ALP [Catalytic activity/Vol] 61 U/L 34 - 123 U/L [facility] ALT [Catalytic activity/Vol] 15 U/L 7 - 38 U/L [facility] Anion gap [Moles/Vol] 12 mmol/L 9 - 18 mmol/L [facility] AST [Catalytic activity/Vol] 15 U/L 13 - 35 U/L [facility] Bilirubin [Mass/Vol] mg/dL Low 0.2 - 1 .3 mg/dL [facility] Calcium [Mass/Vol] 9.8 mg/dL 8.5 - 10. 2 mg/dL [facility] Chloride [Moles/Vol] 107 mmol/L High 97 - 10 5 mmol/L [facility] CO2 [Moles/Vol] 23 mmol/L 22 - 30 mmol/L [facility] Creatinine [Mass/Vol] 0.76 mg/dL 0.58 - 0.96 mg/dL [facility] Estimated Glomerular Filtration Rate 89 mL/min/1.73m >=60 mL/min/1.73m [facility] Glucose [Mass/Vol] 95 mg/dL 74 - 99 mg/dL [facility] Potassium [Moles/Vol] 4.2 mmol/L 3.7 - 5.1 mmol/L [facility] Protein [Mass/Vol] 6.4 g/dL 6.3 - 8.0 g/dL [facility] Sodium [Moles/Vol] 142 mmol/L 136 - 144 mmol/L [facility] Urea nitrogen [Mass/Vol] 17 mg/dL 7 - 21 mg/dL [facility] FERRITIN BLDon 03-07-2022 Ferritin [Mass/Vol] 74.2 ng/mL 14.7 - 2 05.1 ng/mL [facility] Iron and Iron binding capaci ty panelon 03-07-2022 Iron [Mass/Vol] 64 ug/dL 41 - 186 ug/dL [facility] Iron binding capacity [Mass/Vol] 282 ug/dL 232 - 386 ug/dL [facility] Iron/TIBC [Molar ratio] 22.7 % 15.0 - 57.0 % [facility] LIPID PANEL, NONFASTINGon Cholesterol [Mass/Vol] 209 mg/dL High <200 mg/dL [facility] HDL Cholesterol, Nonfasting 69 mg/dL >39 mg/dL [facility] LDL Cholesterol, Nonfasting [facility] LDL/HDL Ratio, Nonfasting [facility] Non HDL Cholesterol, Nonfasting 140 mg/dL High <130 mg/dL [facility] Total Chol/HDL Ratio, Nonfasting 3.03 mg/dL <5.10 mg/dL [facility] Triglycerides, Nonfasting 427 mg/dL High <150 mg/dL [facility] VLDL Cholesterol, Nonfasting [facility] Vital Signs Date Time Vital Sign Value Performing Clinician Faci lity 05-01-2025 14:01-0400 Body height 151.5 cm Negrito Wilburn MD Work Phone: [facility] 05-01-2025 14:01-0400 Body mass index (BMI) [Ratio] 25.96 kg/m2 Negrito Wilburn MD Work Phone: [facility] 05-01-2025 14:01-0400 Body temperature 98.2 [degF] Negrito Wilburn MD Work Phone: [facility] 05-01-2025 14:01-0400 Body weight 59.6 kg Negrito Wilubrn MD Work Phone: [facility] 05-01-2025 14:01-0400 Diastolic blood pressure 66 mm[Hg] Negrito Wilburn MD Work Phone: [facility] 05-01-2025 14:01-0400 Heart rate 94 /min Negrito Wilburn MD Work Phone: [facility] 05-01-2025 14:01-0400 SaO2% (BldA) [Mass fraction] 94 % Negrito Wilburn MD Work Phone: [facility] 05-01-2025 14:01-0400 Systolic blood pressure 104 mm[Hg] Negrito Wilburn MD Work Phone: [facility] 04-17-2025 13:55-0400 Body mass index (BMI) [Ratio] 26.32 kg/m2 Tatyana Perez DIGITAL TECHNICIAN.INSPECTOR [employer] Work Phone: [facility] 04-17-2025 13:55-0400 Body weight 60.4 kg Tatyana Perez DIGITAL TECHNICIAN.INSPECTOR [employer] Work Phone: [facility] 04-17-2025 13:55-0400 Heart rate 96 /min Tatyana Perez DIGITAL TECHNICIAN.INSPECTOR [employer] Work Phone: [facility] 04-17-2025 13:55-0400 SaO2% (BldA) [Mass fraction] 95 % Tatyana Perez DIGITAL TECHNICIAN.INSPECTOR [employer]AMES Work Phone: [facility] 04-03-2025 00:03-0400 Body temperature 98 [degF] Dr. Roger Wilburn MD Work Phone: [facility] 04-03-2025 00:03-0400 Diastolic blood pressure 76 mm[Hg] Dr. Roger Wilburn MD Work Phone: [facility] 04-03-2025 00:03-0400 Heart rate 73 /min Dr. Roger iWlburn MD Work Phone: [facility] 04-03-2025 00:03-0400 Respiratory rate 16 /min Dr. Roger Wilburn MD Work Phone: [facility] 04-03-2025 00:03-0400 SaO2% (BldA) [Mass fraction] 100 % Dr. Roger Wilburn MD Work Phone: [facility] 04-03-2025 00:03-0400 Systolic blood pressure 144 mm[Hg] Dr. Roger Wilburn MD Work Phone: [facility] 04-02-2025 23:05-0400 Body height [address] Roger Wilburn MD Work Phone: [facility] 04-02-2025 23:05-0400 Body mass index (BMI) [Ratio] 26.1 kg/m2 Dr. Roger Wilburn MD Work Phone: [facility] 04-02-2025 [id number] Body weight 60.[address] Roger Wilburn MD Work Phone: [facility] 02-12-2025 14:28-0400 Body mass index (BMI) [Ratio] 26.44 kg/m2 Jessica Podlogar DIGITAL TECHNICIAN.INSPECTOR [employer] Work Phone: [facility] 02-12-2025 [id number] Body temperature 98.6 [degF] Jessica Podlogar DIGITAL TECHNICIAN.INSPECTOR [employer] Work Phone: [facility] 02-12-2025 [id number] Body weight 60.69 kg Jessica Podlogar DIGITAL TECHNICIAN.INSPECTOR [employer] Work Phone: [facility] 02-12-2025 14:28-0400 Diastolic blood pressure 74 mm[Hg] Jessica Podlogar DIGITAL TECHNICIAN.INSPECTOR [employer] Work Phone: [facility] 02-12-2025 14:28-0400 Heart rate 93 /min Jessica Podlogar DIGITAL TECHNICIAN.INSPECTOR [employer] Work Phone: [facility] 02-12-2025 14:28-0400 Respiratory rate 18 /min Jessica Podlogar DIGITAL TECHNICIAN.INSPECTOR [employer] Work Phone: [facility] 02-12-2025 14:28-0400 SaO2% (BldA) [Mass fraction] 92 % Jessica Podlogar DIGITAL TECHNICIAN.INSPECTOR [employer] Work Phone: [facility] 02-12-2025 14:28-0400 Systolic blood pressure 106 mm[Hg] Jessica Podlogar DIGITAL TECHNICIAN.INSPECTOR [employer] Work Phone: [facility] 01-27-2025 11:49-0400 Body mass index (BMI) [Ratio] 27.27 kg/m2 Negrito Wilburn MD Work Phone: [facility] 01-27-2025 11:49-0400 Body temperature 97.81 [degF] Negrito Wilburn MD Work Phone: [facility] 01-27-2025 11:49-0400 Body weight 62.6 kg Negrito Wilburn MD Work Phone: [facility] 01-27-2025 11:49-0400 Diastolic blood pressure 64 mm[Hg] Negrito Wilburn MD Work Phone: [facility] 01-27-2025 11:49-0400 Heart rate 81 /min Negrito Wilburn MD Work Phone: [facility] 01-27-2025 11:49-0400 Respiratory rate 18 /min Negrito Wilburn MD Work Phone: [facility] 01-27-2025 11:49-0400 SaO2% (BldA) [Mass fraction] 97 % Negrito Wilburn MD Work Phone: [facility] 01-27-2025 11:49-0400 Systolic blood pressure 102 mm[Hg] Negrito Wilburn MD Work Phone: [facility] 12-03-2024 12:05-0400 Body mass index (BMI) [Ratio] 26.53 kg/m2 Jessica Podlogar DIGITAL TECHNICIAN.INSPECTOR [employer] Work Phone: [facility] 12-03-2024 12:05-0400 Body weight 60.9 kg Jessica Podlogar DIGITAL TECHNICIAN.INSPECTOR [employer] Work Phone: [facility] 12-03-2024 12:05-0400 Diastolic blood pressure 84 mm[Hg] Jessica Podlogar DIGITAL TECHNICIAN.INSPECTOR [employer] Work Phone: [facility] 12-03-2024 12:05-0400 Heart rate 80 /min Jessica Podlogar DIGITAL TECHNICIAN.INSPECTOR [employer] Work Phone: [facility] 12-03-2024 12:05-0400 Respiratory rate 18 /min Jessica Podlogar DIGITAL TECHNICIAN.INSPECTOR [employer] Work Phone: [facility] 12-03-2024 12:05-0400 SaO2% (BldA) [Mass fraction] 94 % Jessica Podlogar DIGITAL TECHNICIAN.INSPECTOR [employer] Work Phone: [facility] 12-03-2024 12:05-0400 Systolic blood pressure 126 mm[Hg] Jessica Podlogar DIGITAL TECHNICIAN.INSPECTOR [employer] Work Phone: [facility] 06-05-2024 12:45-0400 Body height 151.5 cm Jessica Podlogar DIGITAL TECHNICIAN.INSPECTOR [employer] Work Phone: [facility] 06-05-2024 12:45-0400 Body mass index (BMI) [Ratio] 26.1 kg/m2 Jessica Podlogar DIGITAL TECHNICIAN.INSPECTOR [employer] Work Phone: [facility] 06-05-2024 12:45-0400 Body weight 59.9 kg Jessica Podlogar DIGITAL TECHNICIAN.INSPECTOR [employer] Work Phone: [facility] 06-05-2024 12:45-0400 Diastolic blood pressure 82 mm[Hg] Jessica Podlogar DIGITAL TECHNICIAN.INSPECTOR [employer] Work Phone: [facility] 06-05-2024 12:45-0400 Heart rate 82 /min Jessica Podlogar DIGITAL TECHNICIAN.INSPECTOR [employer] Work Phone: [facility] 06-05-2024 12:45-0400 Respiratory rate 18 /min Jessica Podlogar DIGITAL TECHNICIAN.INSPECTOR [employer] Work Phone: [facility] 06-05-2024 12:45-0400 SaO2% (BldA) [Mass fraction] 95 % Jessica Podlogar DIGITAL TECHNICIAN.INSPECTOR [employer] Work Phone: [facility] 06-05-2024 12:45-0400 Systolic blood pressure 116 mm[Hg] Jessica Podlogar DIGITAL TECHNICIAN.INSPECTOR [employer] Work Phone: [facility] 04-09-2024 10:22-0400 Diastolic blood pressure 67 mm[Hg] Roberth Wills MD Work Phone: [facility] 04-09-2024 10:22-0400 Heart rate 75 /min Roberth Wills MD Work Phone: [facility] 04-09-2024 10:22-0400 Respiratory rate 15 /min Roberth Wills MD Work Phone: [facility] 04-09-2024 10:22-0400 SaO2% (BldA) [Mass fraction] 95 % Roberth Wills MD Work Phone: [facility] 04-09-2024 10:22-0400 Systolic blood pressure 103 mm[Hg] Roberth Wills MD Work Phone: [facility] 04-09-2024 08:27-0400 Body mass index (BMI) [Ratio] 25.96 kg/m2 Roberth Wills MD Work Phone: [facility] 04-09-2024 08:27-0400 Body temperature 98.1 [degF] Roberth Wills MD Work Phone: [facility] 04-09-2024 08:27-0400 Body weight 60.3 kg Roberth Wills MD Work Phone: [facility] 03-11-2024 13:02-0400 Body height 152.4 cm Lorenza Major DO Work Phone: [facility] 03-11-2024 13:02-0400 Body mass index (BMI) [Ratio] 25.96 kg/m2 Lorenza Major DO Work Phone: [facility] 03-11-2024 13:02-0400 Body weight 60.3 kg Lorenza Major DO Work Phone: [facility] 03-11-2024 13:02-0400 Diastolic blood pressure 84 mm[Hg] Lorenza Major DO Work Phone: [facility] 03-11-2024 13:02-0400 Heart rate 81 /min Lorenza Major DO Work Phone: [facility] 03-11-2024 13:02-0400 SaO2% (BldA) [Mass fraction] 95 % Lorenza Major DO Work Phone: [facility] 03-11-2024 13:02-0400 Systolic blood pressure 118 mm[Hg] Lorenza Major DO Work Phone: [facility] 12-11-2023 13:46-0400 Body weight 60.24 kg Jessica Podlogar DIGITAL TECHNICIAN.INSPECTOR [employer] Work Phone: [facility] 12-11-2023 13:46-0400 Diastolic blood pressure 86 mm[Hg] Jessica Podlogar DIGITAL TECHNICIAN.INSPECTOR [employer] Work Phone: [facility] 12-11-2023 13:46-0400 Heart rate 84 /min Jessica Podlogar DIGITAL TECHNICIAN.INSPECTOR [employer] Work Phone: [facility] 12-11-2023 13:46-0400 Respiratory rate 18 /min Jessica Podlogar DIGITAL TECHNICIAN.INSPECTOR [employer] Work Phone: [facility] 12-11-2023 13:46-0400 SaO2% (BldA) [Mass fraction] 94 % Jessica Podlogar DIGITAL TECHNICIAN.INSPECTOR [employer] Work Phone: [facility] 12-11-2023 13:46-0400 Systolic blood pressure 122 mm[Hg] Jessica Podlogar DIGITAL TECHNICIAN.INSPECTOR [employer] Work Phone: [facility] 11-24-2023 13:04-0500 Body height 152.4 cm Roberth Wills MD Work Phone: [facility] 11-24-2023 13:04-0500 Body temperature 97.9 [degF] Roberth Wills MD Work Phone: [facility] 11-24-2023 13:04-0500 Body weight 61.6 kg Roberth Wills MD Work Phone: [facility] 11-24-2023 13:04-0500 Diastolic blood pressure 80 mm[Hg] Roberth Wills MD Work Phone: [facility] 11-24-2023 13:04-0500 Heart rate 94 /min Roberth Wills MD Work Phone: [facility] 11-24-2023 13:04-0500 SaO2% (BldA) [Mass fraction] 94 % Roberth Wills MD Work Phone: [facility] 11-24-2023 13:04-0500 Systolic blood pressure 124 mm[Hg] Roberth Wills MD Work Phone: [facility] 11-17-2023 11:09-0500 Body temperature 98.01 [degF] Marc Vines MD Work Phone: [facility] 11-17-2023 11:09-0500 Body weight 62.96 kg Marc Vines MD Work Phone: [facility] 11-17-2023 11:09-0500 Diastolic blood pressure 72 mm[Hg] Mrac Vines MD Work Phone: [facility] 11-17-2023 11:09-0500 Heart rate 84 /min Marc Vines MD Work Phone: [facility] 11-17-2023 11:09-0500 Respiratory rate 16 /min Marc Vines MD Work Phone: [facility] 11-17-2023 11:09-0500 SaO2% (BldA) [Mass fraction] 96 % Marc Vines MD Work Phone: [facility] 11-17-2023 11:09-0500 Systolic blood pressure 108 mm[Hg] Marc Vines MD Work Phone: [facility] 11-09-2023 10:51-0500 Body weight 61.24 kg Helen Taylor DIGITAL TECHNICIAN.INSPECTOR [employer] Work Phone: [facility] 11-09-2023 10:51-0500 Diastolic blood pressure 84 mm[Hg] Helen Taylor DIGITAL TECHNICIAN.INSPECTOR [employer] Work Phone: [facility] 11-09-2023 10:51-0500 Heart rate 80 /min Helen Taylor DIGITAL TECHNICIAN.INSPECTOR [employer]AMES Work Phone: [facility] 11-09-2023 10:51-0500 Respiratory rate 20 /min Helen Tannhof DIGITAL TECHNICIAN.INSPECTOR [employer]AMES Work Phone: [facility] 11-09-2023 10:51-0500 SaO2% (BldA) [Mass fraction] 94 % Helen Tannhof DIGITAL TECHNICIAN.INSPECTOR [employer] Work Phone: [facility] 11-09-2023 10:51-0500 Systolic blood pressure 130 mm[Hg] Helen Tannhof DIGITAL TECHNICIAN.INSPECTOR [employer] Work Phone: [facility] 10-27-2023 12:46-0500 Body weight 60.33 kg Helen Tannhof DIGITAL TECHNICIAN.INSPECTOR [employer] Work Phone: [facility] 10-27-2023 12:46-0500 Diastolic blood pressure 78 mm[Hg] Helen Tannhof DIGITAL TECHNICIAN.INSPECTOR [employer] Work Phone: [facility] 10-27-2023 12:46-0500 Heart rate 88 /min Helen Tannhof DIGITAL TECHNICIAN.INSPECTOR [employer] Work Phone: [facility] 10-27-2023 12:46-0500 Respiratory rate 16 /min Helen Tannhof DIGITAL TECHNICIAN.INSPECTOR [employer] Work Phone: [facility] 10-27-2023 12:46-0500 SaO2% (BldA) [Mass fraction] 96 % Helen Tannhof DIGITAL TECHNICIAN.INSPECTOR [employer] Work Phone: [facility] 10-27-2023 12:46-0500 Systolic blood pressure 116 mm[Hg] Helen Tannhof DIGITAL TECHNICIAN.INSPECTOR [employer] Work Phone: [facility] 08-07-2023 15:24-0500 Body temperature 97.81 [degF] Alexandra Praisler-Wood DIGITAL TECHNICIAN.INSPECTOR [employer]AMES Work Phone: [facility] 08-07-2023 15:24-0500 Body weight 61.69 kg Alexandra Praisler-Wood DIGITAL TECHNICIAN.INSPECTOR [employer] Work Phone: [facility] 08-07-2023 15:24-0500 Diastolic blood pressure 70 mm[Hg] Alexandra Praisler-Wood DIGITAL TECHNICIAN.INSPECTOR [employer] Work Phone: [facility] 08-07-2023 15:24-0500 Heart rate 96 /min Alexandra Praisler-Wood DIGITAL TECHNICIAN.INSPECTOR [employer] Work Phone: [facility] 08-07-2023 15:24-0500 Respiratory rate 18 /min Alexandra Praisler-Wood DIGITAL TECHNICIAN.INSPECTOR [employer] Work Phone: [facility] 08-07-2023 15:24-0500 SaO2% (BldA) [Mass fraction] 94 % Alexandra Praisler-Wood DIGITAL TECHNICIAN.INSPECTOR [employer] Work Phone: [facility] 08-07-2023 15:24-0500 Systolic blood pressure 110 mm[Hg] Alexandra Praisler-Wood DIGITAL TECHNICIAN.INSPECTOR [employer] Work Phone: [facility] 02-16-2023 08:02-0400 Body weight 59.06 kg Negrito Wilburn MD Work Phone: [facility] 02-16-2023 08:02-0400 Diastolic blood pressure 68 mm[Hg] Negrito Wilburn MD Work Phone: [facility] 02-16-2023 08:02-0400 Heart rate 83 /min Negrito Wilburn MD Work Phone: [facility] 02-16-2023 08:02-0400 Respiratory rate 18 /min Negrito Wilburn MD Work Phone: [facility] 02-16-2023 08:02-0400 SaO2% (BldA) [Mass fraction] 95 % Negrito Wilburn MD Work Phone: [facility] 02-16-2023 08:02-0400 Systolic blood pressure 102 mm[Hg] Negrito Wilburn MD Work Phone: [facility] 05-18-2022 13:14-0400 Body height 152.4 cm Trudy Greco MD Work Phone: [facility] 05-18-2022 13:14-0400 Body temperature 96.4 [degF] Trudy Greco MD Work Phone: [facility] 05-18-2022 13:14-0400 Body weight 56.7 kg Trudy Greco MD Work Phone: [facility] 05-18-2022 13:14-0400 Diastolic blood pressure 83 mm[Hg] Trudy Greco MD Work Phone: [facility] 05-18-2022 13:14-0400 Heart rate 98 /min Trudy Greco MD Work Phone: [facility] 05-18-2022 13:14-0400 SaO2% (BldA) [Mass fraction] 95 % Trudy Greco MD Work Phone: [facility] 05-18-2022 13:14-0400 Systolic blood pressure 129 mm[Hg] Trudy Greco MD Work Phone: [facility] 05-16-2022 10:44-0400 Body weight 56.43 kg Jessica Podlogar DIGITAL TECHNICIAN.INSPECTOR [employer] Work Phone: [facility] 05-16-2022 10:44-0400 Diastolic blood pressure 70 mm[Hg] Jessica Podlogar DIGITAL TECHNICIAN.INSPECTOR [employer] Work Phone: [facility] 05-16-2022 10:44-0400 Heart rate 78 /min Jessica Podlogar DIGITAL TECHNICIAN.INSPECTOR [employer] Work Phone: [facility] 05-16-2022 10:44-0400 Respiratory rate 16 /min Jessica Podlogar DIGITAL TECHNICIAN.INSPECTOR [employer] Work Phone: [facility] 05-16-2022 10:44-0400 SaO2% (BldA) [Mass fraction] 97 % Jessica Podlogar DIGITAL TECHNICIAN.INSPECTOR [employer] Work Phone: [facility] 05-16-2022 10:44-0400 Systolic blood pressure 114 mm[Hg] Jessica Podlogar DIGITAL TECHNICIAN.INSPECTOR [employer] Work Phone: [facility] 03-07-2022 13:19-0400 Body height 152 cm Negrito Wilburn MD Work Phone: [facility] 03-07-2022 13:190400 Body weight 58.88 kg Negrito Wilburn MD Work Phone: [facility] 03-07-2022 13:19-0400 Diastolic blood pressure 76 mm[Hg] Negrito Wilburn MD Work Phone: [facility] 03-07-2022 13:19-0400 Heart rate 88 /min Negrito Wilburn MD Work Phone: [facility] 03-07-2022 13:19-0400 SaO2% (BldA) [Mass fraction] 96 % Negrito Wilburn MD Work Phone: [facility] 03-07-2022 13:-0400 Systolic blood pressure 118 mm[Hg] Negrito Wilburn MD Work Phone: [facility] Encounters Encounter Date Encounter Type Care Provider Facility Start: 06-02-2025 End: 06-02-2025 Telephone encounter Tatyana Perez APRN.INSPECTOR [employer] Work Phone: Pulmonary Medicine Comment on above: Patient Update; FYI- No Action Needed Start: 05-13-2025 End: 05-14-2025 Refill Tatyana Perez APRN.INSPECTOR [employer] Work Phone: [facility] Medicine Comment on above: Med Change Request Start: 05-01-2025 End: 05-01-2025 Patient encounter procedure Negrito Wilburn MD Work Phone: [facility] Comment on above: Chronic obstructive pulmonary disease, unspecified COPD type (HCC) (Primary Dx); Tobacco use disorder Start: 05-01-2025 End: 05-01-2025 ambulatory NEGRITO WILBURN Facility:[facility] Start: 04-21-2025 End: 04-21-2025 Follow-up encounter Tatyana Perez APRN.INSPECTOR [employer] Work Phone: Pulmonary Medicine Start: 04-17-2025 End: 04-17-2025 Patient encounter procedure Tatyana Perez APRN.INSPECTOR [employer] Work Phone: [facility] Comment on above: Multiple lung nodule s (Primary Dx); Encounter for screening for lung cancer; Former tobacco use; Chronic obstructive pulmonary disease, unspecified COPD type (HCC) Start: 04-17-2025 End: 04-17-2025 ambulatory TATYANA HALEY Facility:[facility] Start: 04-17-2025 End: 04-17-2025 Subsequent hospital visit by physician Ct [facility] ([facility]) Work Phone: Cat Scan Comment on above: Encounter for screen ing for lung cancer [Z12.2] Start: 04-08-2025 End: 04-08-[address] Roger Wilburn MD Work Phone: -Radiology [facility] Start: 04-08-2025 End: 04-08-[address] Omer Hall MD -Radiology [facility] Work Phone: Start: 04-08-2025 End: 04-08-2025 ambulatory Omer Hall Facility:[facility] Start: 04-02-2025 End: 04-03-2025 Emergency department patient visit Dr. Roger Wilburn MD Work Phone: -Emergency Department Work Phone: Start: 03-18-2025 Non-patient / Non-visit Dr. Josee jordan MD -[facility] Work Phone: Start: 03-13-2025 End: 03-14-2025 Refill Negrito Wilburn MD Work Phone: [facility] [place] Comment on above: Refill Request Start: 03-07-2025 End: 03-10-2025 Orders Only Tatyana Perez DIGITAL TECHNICIAN.INSPECTOR [employer] Work Phone: Pulmonary Medicine Comment on above: Encounter for screen ing for lung cancer (Primary Dx); Tobacco abuse Appointment Start: 02-19-2025 End: 02-20-2025 Follow-up encounter Jessica Palencia APRN.INSPECTOR [employer] Work Phone: [facility] [place] Comment on above: mamm results Start: 02-19-2025 ambulatory JESSICA PODLOGSABRINA Facility :[facility] Start: 02-19-2025 End: 02-19-2025 Subsequent hospital visit by physician Diagnostic Mammo [facility] Mammogram Comment on above: Abnormal mammogram [ R92.8] Start: 02-12-2025 End: 02-12-2025 Subsequent hospital visit by physician Xr [facility] [place] Work Phone: Radiology Comment on above: Urinary frequency [R 35.0] Start: 02-12-2025 End: 02-12-2025 Patient encounter procedure Jessica Palencia APRN.INSPECTOR [employer] Work Phone: [facility] [place] Comment on above: Stress incontinence (Primary Dx); Urinary frequency; Smoker; Chronic cough; Allergy status to other drugs, medicaments and biological substances; Age-related osteoporosis without current pathological fracture; Encounter for screening for malignant neoplasm of lung; Chronic obstructive pulmonary disease, unspecified COPD type (HCC) Start: 02-12-2025 End: 02-12-2025 ambulatory NEGRITO WILBURN Facility:[facility] Start: 02-12-2025 End: 02-14-2025 Follow-up encounter Trista Espinosa LPN [facility] [place] Start: 01-30-2025 End: 04-01-2025 Follow-up encounter Jeanne Cotton APRN.INSPECTOR [employer] Work Phone: Family [facility] [place] Start: 01-29-2025 End: 01-29-2025 Follow-up encounter Negrito Wilburn MD Work Phone: [facility] [place] Comment on above: Results Start: 01-27-2025 End: 01-27-2025 ambulatory NEGRITO WILBURN Facility:[facility] Start: 01-27-2025 End: 01-27-2025 Patient encounter procedure Negrito Wilburn MD Work Phone: [facility] [place] Comment on above: Dermatitis (Primary Dx) Start: 01-13-2025 End: 03-15-2025 Follow-up encounter Jessica Palencia APRN.INSPECTOR [employer] Work Phone: [facility] [place] Comment on above: mamm results Start: 01-13-2025 End: 01-13-2025 Telephone encounter Dillan Perez MD Work Phone: Mammography Comment on above: Mammogram Result Bhargav l Back Start: 01-09-2025 ambulatory NEGRITO Jacobsen acility:[facility] Start: 01-09-2025 End: 01-09-2025 ambulatory JEANNE COTTON Facility:[facility] Start: 01-08-2025 End: 01-08-2025 Refill Negrito Wilburn MD Work Phone: [facility] Comment on above: Refill Request Start: 12-09-2024 End: 12-09-2024 Follow-up encounter Jeanne Cotton DIGITAL TECHNICIAN.INSPECTOR [employer] Work Phone: [facility] Start: 12-06-2024 End: 12-06-2024 ambulatory NEGRITO WILBURN Facility:[facility] Start: 12-04-2024 End: 12-06-2024 Follow-up encounter Jessica Palencia APRN.INSPECTOR [employer] Work Phone: [facility] Comment on above: Results Start: 12-03-2024 End: 12-03-2024 ambulatory NEGRITO WILBURN Facility:[facility] Start: 12-03-2024 End: 12-03-2024 Patient encounter procedure Jessica Palencia APRN.INSPECTOR [employer] Work Phone: [facility] Comment on above: Essential hypertensi on (Primary Dx); Hyperlipidemia, mixed; Encounter for screening mammogram for breast cancer; Asymptomatic menopause; Encounter for screening for osteoporosis; Encounter for immunization; Fatigue, unspecified type; Vitamin D insufficiency; Tobacco use disorder; Coronary artery calcification; Chronic obstructive pulmonary disease, unspecified COPD type (HCC); Prediabetes Start: 12-03-2024 End: 12-03-2024 ambulatory NEGRITO WILBURN Facility:[facility] Start: 11-11-2024 End: 11-11-2024 ambulatory Kate Rivas Facility:[facility] Start: 11-01-2024 End: 11-02-2024 Refill Negrito Wilburn MD Work Phone: [facility] Comment on above: Refill Request Start: 10-07-2024 End: 10-07-2024 ambulatory Kate Rivas Facility:[facility] Start: 09-24-2024 End: 09-24-2024 Refill Negrito Wilburn MD Work Phone: [facility] Comment on above: Refill Request Start: 09-23-2024 End: 09-23-2024 ambulatory Lukemikey Coellocurtis Facility:[facility] Start: 08-19-2024 End: 08-19-2024 ambulatory Alexandra Bassett MA [facility] Start: 08-19-2024 End: 08-19-2024 Patient encounter procedure Alexandra Bassett MA [facility] Comment on above: Population Health Na vigation Outreach ([facility] ) Start: 07-29-2024 End: 07-29-2024 ambulatory Penelope Ervin RN [facility] Start: 07-29-2024 End: 07-29-2024 Patient encounter procedure Penelope Ervin RN [facility] Comment on above: ACTiffany GONZALEZ RN ( Medication Adherence Review at request of payer) Start: 07-18-2024 End: 07-18-2024 ambulatory Alexandra Bassett MA [facility] Start: 07-18-2024 End: 07-18-2024 Patient encounter procedure Alexandra Bassett MA [facility] Comment on above: Population Health Na vigation Outreach ([facility]) Start: 06-07-2024 End: 06-07-2024 Telephone encounter Jessica Palencia APRN.CNP [facility] Comment on above: Results Start: 06-05-2024 End: 06-06-2024 Telephone encounter Jessica Palencia APRN.CNP [facility] Comment on above: Results Start: 06-05-2024 End: 06-05-2024 Subsequent hospital visit by physician Jacqueline [facility] Work Phone: Radiology Comment on above: Pain of right thumb [M79.644] Start: 06-05-2024 End: 06-05-2024 ambulatory NEGRITO WILBURN Facility:[facility] Start: 06-05-2024 End: 06-05-2024 Patient encounter procedure Jessica Palencia DIGITAL TECHNICIAN.INSPECTOR [employer] Work Phone: [facility] [place] Comment on above: Routine physical exa mination (Primary Dx); Prediabetes; Hyperlipidemia, mixed; Essential hypertension; Lumbar stenosis with neurogenic claudication; Encounter for screening mammogram for breast cancer; Pain of right thumb; Chronic obstructive pulmonary disease, unspecified COPD type (HCC); Gastroesophageal reflux disease, unspecified whether esophagitis present; Coronary artery calcification Start: 06-05-2024 End: 06-05-2024 ambulatory NEGRITO WILBURN Facility:[facility] Start: 06-05-2024 End: 06-05-2024 Physical examination Jessica Montenegrologsabrina DIGITAL TECHNICIAN.INSPECTOR [employer] Work Phone: [facility] Start: 05-15-2024 End: 05-15-2024 ambulatory Alexandra Bassett MA [facility] Start: 05-15-2024 End: 05-15-2024 Patient encounter procedure Alexandra Bassett MA [facility] Comment on above: Population Health [facility] Outreach ( [facility] [place] Start: 05-08-2024 End: 05-08-2024 Refill Negrito Wilburn MD Work Phone: [facility] Comment on above: Refill Request Start: 04-11-2024 Telephone encounter Roberth Wills MD Work Phone: General Surgery Comment on above: Results Start: 04-09-2024 End: 04-09-2024 Subsequent hospital visit by physician Roberth Wills MD Work Phone: Ambulatory Surgery Comment on above: Screening for colon cancer [Z12.11] Start: 03-20-2024 Refill Negrito Wilburn MD Work Phone: Family [facility] [place] Comment on above: Refill Request Start: 03-13-2024 Refill Negrito Wilburn MD Work Phone: Family [facility] [place] Comment on above: Refill Request Start: 03-11-2024 Telephone encounter Lorenza Major DO Work Phone: Cardiology Comment on above: Appointment Start: 03-11-2024 End: 03-11-2024 Patient encounter procedure Lorenza Major DO Work Phone: Cardiology Comment on above: Coronary artery calc ification seen on CAT scan (Primary Dx); GILL (dyspnea on exertion); Abnormal ECG; Primary hypertension; Hyperlipidemia, mixed Start: 03-11-2024 End: 03-11-2024 ambulatory LORENZA MAJOR Facility:[facility] Start: 02-21-2024 Telephone encounter Roger Wilburn MD Work Phone: [facility] Comment on above: Results Start: 01-11-2024 End: 01-11-2024 ambulatory [facility] Work Phone: Start: 01-11-2024 End: 01-11-2024 Patient encounter procedure [facility] Work Phone: Start: 12-11-2023 End: 12-11-2023 Patient encounter procedure Jessica Palencia APRN.INSPECTOR [employer] Work Phone: [facility] Comment on above: Essential hypertensi on (Primary Dx); Prediabetes; Hyperlipidemia, mixed; Gastroesophageal reflux disease, unspecified whether esophagitis present; Tobacco use disorder; Recurrent major depressive disorder, in partial remission ([facility]); Lumbar stenosis with neurogenic claudication; PROSPER (acute kidney injury) ([facility]) Start: 12-11-2023 Telephone encounter Roger Wilburn MD Work Phone: [facility] Comment on above: Opened In Error Start: 12-10-2023 Refill Marc martinez MD Work Phone: [facility] Comment on above: Med Change Request Start: 12-01-2023 Refill Helen Taylor APRN.INSPECTOR [employer] Work Phone: [facility] Comment on above: Med Change Request Start: 11-24-2023 End: 07-23-2024 Telephone encounter Roberth Wills MD Work Phone: General Surgery Comment on above: 01/09/2024 colon asc Start: 11-24-2023 End: 11-24-2023 Patient encounter procedure Roberth Wills MD Work Phone: General Surgery Comment on above: Tubulovillous adenom a (Primary Dx); Screening for colon cancer Start: 11-19-2023 ambulatory Susy Gonzales RN [facility] Start: 11-19-2023 Patient encounter procedure Susy Gonzales RN NURSE [employer]ILRO[employer] WORKER Comment on above: Clinical Update Start: 11-19-2023 Telephone encounter Shannen baker PA-C Work Phone: [facility] Comment on above: Results Start: 11-17-2023 End: 11-17-2023 Patient encounter procedure Marc Vines MD Work Phone: [facility] Comment on above: Urinary frequency (P rimary Dx); Stress incontinence Start: 11-15-2023 Telephone encounter Roger Wilburn MD Work Phone: [facility] [place] Comment on above: rax referral to outs alena Start: 11-10-2023 Telephone encounter Helen strange APRN.INSPECTOR [employer]AMES Work Phone: [facility] [place] Comment on above: Results (Covid, Flu, RSV) Start: 11-09-2023 ambulatory Helen Taylor APRN.KATHLEEN Work Phone: Family [facility] [place] Comment on above: Patient Question; Co ugh; urinary incontinence and medication question Start: 11-09-2023 End: 11-09-2023 Patient encounter procedure Helen Taylor APRN.CNP Work Phone: [facility] [place] Comment on above: Sore throat (Primary Dx); Chronic obstructive pulmonary disease, unspecified COPD type (HCC); Stress incontinence Start: 10-30-2023 Telephone encounter Helen strange APRN.KATHLEEN Work Phone: [facility] [place] Comment on above: Results (Urine ) Start: 10-27-2023 End: 10-27-2023 Patient encounter procedure Helen Taylor APRN.KATHLEEN Work Phone: [facility] [place] Comment on above: Stress incontinence (Primary Dx); PROSPER (acute kidney injury) (HCC) Start: 10-26-2023 Telephone encounter Jessica Montenegrocheri rahman DIGITAL TECHNICIAN.INSPECTOR [employer] Work Phone: Family [facility] Comment on above: Urinary Problem Start: 10-19-2023 Telephone encounter Roger Wilburn MD Work Phone: [facility] [place] Comment on above: Results Start: 08-25-2023 Refill Negrito Wilburn MD Work Phone: [facility] [place] Comment on above: Refill Request Start: 08-07-2023 End: 08-07-2023 Patient encounter procedure Alexandra CastellanosJuan DIGITAL TECHNICIAN.INSPECTOR [employer] Work Phone: [facility] Comment on above: Upper respiratory tr act infection, unspecified type (Primary Dx) Start: 06-13-2023 Documentation procedure Mammog lory Coordinator [facility] Start: 06-13-2023 Letter encounter Mammography Coordinator [facility] Department Start: 06-13-2023 Telephone encounter Roger Wilburn MD Work Phone: [facility] [place] Comment on above: Results Start: 06-13-2023 End: 06-13-2023 Subsequent hospital visit by physician Screen Mammo [facility] Mammogram Start: 04-19-2023 ambulatory Negrito Wilburn MD Work Phone: Internal Medicine [facility] [place] Start: 03-06-2023 Telephone encounter Roger Wilburn MD Work Phone: [facility] [place] Comment on above: Results Start: 03-06-2023 End: 03-06-2023 Subsequent hospital visit by physician Injection Nm [facility] Work Phone: Nuclear Medicine Comment on above: Chest pain, unspecif ied type [R07.9] Start: 02-22-2023 Telephone encounter Roger Wilburn MD Work Phone: [facility] [place] Comment on above: Results Start: 02-20-2023 Telephone encounter Roger Wilburn MD Work Phone: [facility] [place] Comment on above: Results Start: 02-16-2023 Telephone encounter Roger Wilburn MD Work Phone: [facility] Comment on above: Results Start: 02-16-2023 End: 02-16-2023 Subsequent hospital visit by physician Xr [facility] [place] Work Phone: Radiology Comment on above: Chest pain, unspecif ied type [R07.9] Start: 02-16-2023 End: 02-16-2023 Patient encounter procedure Negrito Wilburn MD Work Phone: [facility] Comment on above: Chest pain, unspecif ied type (Primary Dx); Primary hypertension; Hyperlipidemia, mixed; Tobacco use disorder; Abnormal EKG Start: 01-10-2023 End: 01-10-2023 ambulatory [facility] Work Phone: Start: 01-10-2023 End: 01-10-2023 Patient encounter procedure [facility] Start: 09-08-2022 Refill Negrito Wilburn MD Work Phone: [facility] Comment on above: Refill Request Start: 06-20-2022 Telephone encounter Roger Wilburn MD Work Phone: [facility] Comment on above: Results Start: 06-03-2022 Telephone encounter Roger Wilburn MD Work Phone: [facility] Comment on above: Results Start: 05-18-2022 End: 05-18-2022 Patient encounter procedure Trudy Greco MD Work Phone: General Surgery Comment on above: Calcification of lef t breast on mammography (Primary Dx) Start: 05-16-2022 End: 05-16-2022 Patient encounter procedure Jessica Palencia DIGITAL TECHNICIAN.INSPECTOR [employer]AMES Work Phone: [facility] Comment on above: Decreased pedal puls es (Primary Dx) Start: 05-11-2022 Telephone encounter Roger Wilburn MD Work Phone: [facility] Comment on above: report findiings Start: 05-03-2022 Telephone encounter Jessica rahman DIGITAL TECHNICIAN.INSPECTOR [employer] Work Phone: [facility] [place] Comment on above: Results Start: 03-28-2022 Telephone encounter Roger Wilburn MD Work Phone: [facility] [place] Comment on above: Results Start: 03-15-2022 Orders Only Jessica Montenegrologsabrina MANUEL.INSPECTOR [employer]AMES Work Phone: [facility] [place] Start: 03-14-2022 Documentation procedure Mammog lory Coordinator [facility] Start: 03-14-2022 Letter encounter Mammography Coordinator [facility] Department Start: 03-14-2022 Telephone encounter Jessica rahman DIGITAL TECHNICIAN.INSPECTOR [employer] Work Phone: [facility] [place] Comment on above: Results Start: 03-14-2022 End: 03-14-2022 Subsequent hospital visit by physician Screen Mammo [facility] Mammogram Comment on above: Screening mammogram for breast cancer [Z12.31] Start: 03-09-2022 Telephone encounter Roger Wilburn MD Work Phone: [facility] [place] Comment on above: Results Start: 03-07-2022 Telephone encounter Omar LUCAS Work Phone: Psychology Comment on above: Consult (Initial [facility] W Pt Outreach ) Start: 03-07-2022 End: 03-07-2022 Patient encounter procedure Negrito Wilburn MD Work Phone: [facility] Comment on above: Annual physical exam (Primary Dx); Recurrent major depressive disorder, in partial remission (HCC); Essential hypertension; Hyperlipidemia, mixed; Gastroesophageal reflux disease, unspecified whether esophagitis present; Prediabetes; Tobacco use; Fibromyalgia; Iron deficiency anemia, unspecified iron deficiency anemia type; Screening mammogram for breast cancer; Need for COVID-19 vaccine Procedures Date Procedure Procedure Detail Performing Clinician Start: 04-08-2025 X-ray of cervical spine Dr. Roger Wilburn MD Work Phone: Start: 02-19-2025 Us breast uni real t topher with image limited Jessica Montenegrologsabrina DIGITAL TECHNICIAN.INSPECTOR [employer] Work Phone: Start: 02-19-2025 Digital breast tomosynthesis unilateral Jessica Podlogar DIGITAL TECHNICIAN.[facility] Work Phone: Start: 02-12-2025 Radiologic exam ches t 2 views Jessica Podlogar DIGITAL TECHNICIAN.[facility] Work Phone: Start: 02-12-2025 Urnls dip stick/tabl et rgnt auto w/o microscopy Jessica Podlogar DIGITAL TECHNICIAN.[facility] Work Phone: Start: 12-03-2024 PFIZER-BIONTECH COVI D-19 VACCINE AGE 12+ YR (COMIRNATY) Jessica Podlogar DIGITAL TECHNICIAN.[facility] Work Phone: Start: 06-05-2024 Radex fingr minimum 2 views Jessica Podlogar DIGITAL TECHNICIAN.[facility] Work Phone: Start: 06-05-2024 Lipid 1996 panel - S jenaro or Plasma Jessica Podlogar DIGITAL TECHNICIAN.[facility] Work Phone: Start: 04-09-2024 Colonoscopy flx dx w /collj spec when pfrmd Roberth Wills MD Work Phone: Start: 04-09-2024 Colonoscopy Roberth moreno MD Work Phone: Start: 11-17-2023 Urnls dip stick/tabl et rgnt auto w/o microscopy Geraldo Wesley DIGITAL TECHNICIAN.[facility] Work Phone: Start: 11-09-2023 STREP A MOLECULAR (POC) Helen Taylor DIGITAL TECHNICIAN.[facility] Work Phone: Start: 06-13-2023 Screening digital br [...] Phone: Start: 03-23-2020 Mammography Omar Na ll RESORT MANAGER Work Phone: Start: 10-22-2018 Colonoscopy Omar Na ll RESORT MANAGER Work Phone: Plan of Treatment Date Care Activity Detail Author Start: 04-09-2034 Screening for malign ant neoplasm of colon [facility] Start: 06-05-2029 Lipid panel Lipid Screening [facility] Start: 04-09-2029 Screening for malign ant neoplasm of colon [facility] Start: 12-04-2027 [facility] Start: 06-17-2027 Lipid 1996 panel - S jenaro or Plasma Lipid Screening [facility] Start: 06-17-2027 Lipid panel Lipid Screening [facility] Start: 06-17-2027 LIPID SCREEN LIPID SCREEN [facility] Start: 06-05-2027 [facility] Start: 03-07-2027 LIPID SCREEN LIPID SCREEN [facility] Start: 02-19-2027 Diabetes Screening [facility] Start: 11-23-2026 [facility] Start: 09-19-2026 [facility] Start: 05-01-2026 Annual PCP Team Clothes Separator manjula Disease Visit Annual PCP Team Chronic Disease Visit [facility] Start: 04-20-2026 End: 04-20-2026 Patient encounter procedure 04/20/2026 8:00 AM EDT Office Visit Pulmonary Medicine [place] [address] Tatyana Perez APRN.INSPECTOR [employer] [address] [place] [address] Encounter for screening for lung cancer [Z12.2] Pulmonary Medicine Comment on above: Encounter for screen ing for lung cancer [Z12.2] Start: 04-17-2026 Screening for malign ant neoplasm of lung Lung Cancer Screening [facility] Start: 04-01-2026 End: 04-01-2026 Patient encounter procedure 04/01/2026 1:20 PM EDT Appointment Cat Scan Boris[address] [place] [address] Encounter for screening for lung cancer [Z12.2] Cat Scan Comment on above: Encounter for screen ing for lung cancer [Z12.2] Start: 03-15-2026 DIABETES SCREEN DIABETES SCREEN [facility] Start: 03-15-2026 Diabetes Screening Diabetes Screenin g [facility] Start: 02-21-2026 Urine microalbumin profile [facility] Start: 02-16-2026 DIABETES SCREEN DIABETES SCREEN [facility] Start: 02-12-2026 Annual PCP Team Clothes Separator manjula Disease Visit Annual PCP Team Chronic Disease Visit [facility] Start: 02-12-2026 BP Controlled (<130/80) BP Controlle d (<130/80) [facility] Start: 01-27-2026 Annual PCP Team Clothes Separator manjula Disease Visit Annual PCP Team Chronic Disease Visit [facility] Start: 01-27-2026 BP Controlled (<130/80) BP Controlle d (<130/80) [facility] Start: 01-09-2026 Screening for malign ant neoplasm of breast Mammogram Screening [facility] Start: 12-10-2025 LIPID SCREEN LIPID SCREEN [facility] Start: 12-03-2025 Annual PCP Team Clothes Separator manjula Disease Visit Annual PCP Team Chronic Disease Visit [facility] Start: 08-21-2025 End: 03-21-2026 MG Breast - bilateral Diagnostic [facility] DI[facility]NOST[facility] BILATERAL Radiology Routine Abnormal mammogram Expected: 08/21/2025, Expires: 03/21/2026 [facility] Work Phone: Comment on above: Expected: 08/21/2025 , Expires: 03/21/2026 Start: 06-17-2025 DIABETES SCREEN DIABETES SCREEN [facility] Start: 06-13-2025 End: 06-13-2025 Patient encounter procedure 06/13/2025 3:00 PM EDT Office Visit Urology [address] [place] [address] Ana Paula Monge MD [address] [place] [address] Stress incontinence [N39.3] Urology Comment on above: Stress incontinence [N39.3] Start: 06-10-2025 End: 06-10-2025 Patient encounter procedure 06/10/2025 1:40 PM EDT Office Visit [facility] [place] [address] [place] [address] Negrito Wilburn MD [address] [place] [address] 6 mo follow up [facility] [place] Comment on above: 6 mo follow up Start: 06-09-2025 End: 06-09-2025 Patient encounter procedure 06/09/2025 3:15 PM EDT Office Visit Pulmonary Medicine [address] [place], [place] [id number] Nataliia Og MD [address] [place] [address] Chronic obstructive pulmonary disease, unspecified COPD type (HCC) [J44.9] Pulmonary Medicine Comment on above: Chronic obstructive pulmonary disease, unspecified COPD type (HCC) [J44.9] Start: 06-09-2025 End: 06-09-2025 ambulatory [facility] Comment on above: Chronic obstructive pulmonary disease, unspecified COPD type (HCC) [J44.9] Start: 06-06-2025 End: 06-06-2025 Patient encounter procedure Family [facility] Comment on above: 6 month f/u Start: 06-05-2025 Annual PCP Team Clothes Separator manjula Disease Visit Annual PCP Team Chronic Disease Visit [facility] Start: 06-05-2025 Covid-19 Vaccine ( season) Covid-19 Vaccine ( season) [facility] Start: 06-05-2025 Hepatitis B surface antibody level LDL Cholesterol [facility] Start: 06-05-2025 End: 06-05-2025 Patient encounter procedure 06/05/2025 2:00 PM EDT Office Visit Family [facility] [address] [place] [address] Jeanne Cotton APRN.INSPECTOR [employer]AG FRAMES [address] [place], [place] [id number] 6 month f/u Family [facility] Comment on above: 6 month f/u Start: 06-02-2025 End: 06-02-2025 Patient encounter procedure 06/02/2025 1:30 PM EDT Office Visit Pulmonary Medicine [address] [place] [address] Nataliia Og MD [address] [place], [place] [id number] Chronic obstructive pulmonary disease, unspecified COPD type (HCC) [J44.9] Pulmonary Medicine Comment on above: Chronic obstructive pulmonary disease, unspecified COPD type (HCC) [J44.9] Start: 06-02-2025 End: 06-02-2025 ambulatory [facility] Comment on above: Chronic obstructive pulmonary disease, unspecified COPD type (HCC) [J44.9] Start: 05-19-2025 Influenza vaccination Influenza Vacc ine (#1) [facility] Start: 04-17-2025 End: 04-17-2025 Patient encounter procedure Cat Scan Comment on above: Lung Cancer Screenin g Start: 04-02-2025 [facility] Start: 03-10-2025 End: 03-10-2025 Patient encounter procedure 03/10/2025 9:00 AM EDT Office Visit Pulmonary Medicine [address] [place] [address] Tatyana Perez APRN.INSPECTOR [employer] [address] [place] [address] Smoker [F17.200] Pulmonary Medicine Comment on above: Smoker [F17.200] Start: 03-07-2025 DIABETES SCREEN DIABETES SCREEN [facility] Start: 02-19-2025 End: 02-19-2025 Patient encounter procedure Mammogram Comment on above: LEFT DX MAMM CALL BA CK Comp- LEFT DX MAMM C ALL BACK breast Start: 01-27-2025 End: 04-28-2025 Borrelia burgdorferi IgG and IgM panel - Serum [facility] Work Phone: Comment on above: Expected: 01/27/2025 , Expires: 04/28/2025 Start: 01-09-2025 End: 01-09-2025 Patient encounter procedure Radiology Comment on above: Asymptomatic menopau se [Z78.0] Encounter for screen ing mammogram for breast cancer [Z12.31] Start: 01-05-2025 End: 04-06-2025 25-hydroxyvitamin D3 [Mass/volume] in Serum or Plasma VITAMIN D 25 HYDROXY Lab Routine High vitamin D level Expected: 01/05/2025, Expires: 04/06/2025 [facility] Work Phone: Comment on above: Expected: 01/05/2025 , Expires: 04/06/2025 Start: 12-10-2024 Annual PCP Team Clothes Separator manjula Disease Visit Annual PCP Team Chronic Disease Visit [facility] Start: 12-09-2024 End: 03-10-2025 25-hydroxyvitamin D3 [Mass/volume] in Serum or Plasma VITAMIN D 25 HYDROXY Lab Routine High vitamin D level Expected: 12/09/2024, Expires: 03/10/2025 [facility] Work Phone: Comment on above: Expected: 12/09/2024 , Expires: 03/10/2025 Start: 12-04-2024 End: 03-05-2025 Thyrotropin [Units/volume] in Serum or Plasma THYROID STIMULATING HORMONE Lab Routine Elevated TSH Expected: 12/04/2024, Expires: 03/05/2025 [facility] Work Phone: Comment on above: Expected: 12/04/2024 , Expires: 03/05/2025 Start: 12-04-2024 End: 03-05-2025 Thyroxine (T4) free [Mass/volume] in Serum or Plasma T4 FREE/FREE THYROXINE Lab Routine Elevated TSH Expected: 12/04/2024, Expires: 03/05/2025 [facility] Comment on above: Expected: 12/04/2024 , Expires: 03/05/2025 Start: 12-03-2024 End: 03-04-2025 25-hydroxyvitamin D3 [Mass/volume] in Serum or Plasma [facility] Comment on above: Expected: 12/03/2024 , Expires: 03/04/2025 Start: 12-03-2024 End: 03-04-2025 Cobalamin (Vitamin B12) [Mass/volume] in Serum or Plasma [facility] Comment on above: Expected: 12/03/2024 , Expires: 03/04/2025 Start: 12-03-2024 End: 03-04-2025 Comprehensive metabolic 2000 panel - Serum or Plasma [facility] Work Phone: Comment on above: Expected: 12/03/2024 , Expires: 03/04/2025 Start: 12-03-2024 End: 03-04-2025 Thyrotropin [Units/volume] in Serum or Plasma [facility] Comment on above: Expected: 12/03/2024 , Expires: 03/04/2025 Start: 12-03-2024 End: 12-03-2024 Patient encounter procedure [facility] [place] Comment on above: 6 Month Follow up [employer]LL[employer] Start: 11-16-2024 BP Controlled (<130/80) BP Controlle d (<130/80) [facility] Start: 11-09-2024 Annual PCP Team Clothes Separator manjula Disease Visit Annual PCP Team Chronic Disease Visit [facility] Start: 2024 Advance Directive Discussion Advance Directive Discussion [facility] Start: 2024 PNEUMOCOCCAL (3 - PP SV23 if available, else PCV20) PNEUMOCOCCAL (3 - PPSV23 if available, else PCV20) [facility] Start: 2024 PNEUMOCOCCAL (3 - PP SV23 or PCV20) PNEUMOCOCCAL (3 - PPSV23 or PCV20) [facility] Start: 2024 Pneumococcal vaccination [facility] Start: 2024 Screening for osteoporosis Bone Density Screening [facility] Start: 10-27-2024 Annual PCP Team Clothes Separator manjula Disease Visit Annual PCP Team Chronic Disease Visit [facility] Start: 10-27-2024 BP Controlled (<130/80) BP Controlle d (<130/80) [facility] Start: 10-16-2024 Screening for malign ant neoplasm of lung Lung Cancer Screening [facility] Start: 09-26-2024 BP Controlled (<130/80) BP Controlle d (<130/80) [facility] Start: 09-19-2024 Annual PCP Team Clothes Separator manjula Disease Visit Annual PCP Team Chronic Disease Visit [facility] Start: 09-18-2024 Medicare Community Health Annual Wellness Visit Medicare Advantage Annual Wellness Visit [facility] Start: 09-03-2024 DIABETES SCREEN DIABETES SCREEN [facility] Start: 08-22-2024 Covid-19 Vaccine () Covid-19 Vaccine () [facility] Start: 08-21-2024 Pneumococcal Vaccine : 50+ (3 of 3 - PCV20 or PCV21) Pneumococcal Vaccine: 50+ (3 of 3 - PCV20 or PCV21) [facility] Start: 08-07-2024 BP Controlled (<130/80) BP Controlle d (<130/80) [facility] Start: 07-07-2024 End: 10-06-2024 CBC W Auto Differential panel - Blood COMPLETE BLOOD COUNT AND DIFFERENTIAL Lab Routine Pain of right thumb Expected: 07/07/2024, Expires: 10/06/2024 [facility] Comment on above: Expected: 07/07/2024 , Expires: 10/06/2024 Start: 07-07-2024 End: 10-06-2024 Urate [Mass/volume] in Serum or Plasma URIC ACID Lab Routine Pain of right thumb Expected: 07/07/2024, Expires: 10/06/2024 [facility] Work Phone: Comment on above: Expected: 07/07/2024 , Expires: 10/06/2024 Start: 06-13-2024 Mammography Mammogram Screening [facility] Start: 06-13-2024 Screening for malign ant neoplasm of breast Mammogram Screening [facility] Start: 06-05-2024 End: 09-04-2024 CBC W Auto Differential panel - Blood [facility] Comment on above: Expected: 06/05/2024 , Expires: 09/04/2024 Start: 06-05-2024 End: 09-04-2024 Comprehensive metabolic 2000 panel - Serum or Plasma [facility] Work Phone: Comment on above: Expected: 06/05/2024 , Expires: 09/04/2024 Start: 06-05-2024 End: 09-04-2024 Hemoglobin A1c in Blood [facility] Comment on above: Expected: 06/05/2024 , Expires: 09/04/2024 Start: 06-05-2024 End: 09-04-2024 Lipid 1996 panel - Serum or Plasma [facility] Comment on above: Expected: 06/05/2024 , Expires: 09/04/2024 Start: 06-05-2024 End: 09-04-2024 Urate [Mass/volume] in Serum or Plasma [facility] Comment on above: Expected: 06/05/2024 , Expires: 09/04/2024 Start: 06-05-2024 End: 06-05-2024 Patient encounter procedure 06/05/2024 12:40 PM EDT Office Visit [facility] [place] [address] [place] [address] PodJessica segovia APRN.INSPECTOR [employer] [address] [place] [address] 6 month/Physical [facility] [place] Comment on above: 6 month/Physical Start: 05-19-2024 Influenza vaccination Influenza Vacc ine (#1) [facility] Start: 05-13-2024 End: 05-13-2024 Patient encounter procedure 05/13/2024 2:30 PM EDT Office Visit Cardiology [address] [address] Tete Zayas, DIGITAL TECHNICIAN.INSPECTOR [employer] FRAMES [address] [place] [address] 2 month follow up Cardiology Comment on above: 2 month follow up Start: 04-09-2024 End: 04-09-2024 Patient encounter procedure Ambulatory Surgery Comment on above: \ Start: 03-27-2024 End: 03-27-2024 Patient encounter procedure Molecular Imaging Comment on above: Coronary artery calc ification seen on CAT scan [I25.10] Start: 03-15-2024 ANNUAL PCP TEAM LEARNING COACH MANJULA DISEASE VISIT ANNUAL PCP TEAM CHRONIC DISEASE VISIT [facility] Start: 03-15-2024 BP CONTROLLED (<130/80) BP CONTROLLE D (<130/80) [facility] Start: 03-11-2024 End: 03-11-2024 Patient encounter procedure 03/11/2024 1:20 PM EDT Office Visit Cardiology [facility] [place] [address] Lorenza Major DO [address] [place] [address] Coronary artery calcification seen on CAT scan [I25.10] Cardiology Comment on above: Coronary artery calc ification seen on CAT scan [I25.10] Start: 02-17-2024 ANNUAL PCP TEAM LEARNING COACH MANJULA DISEASE VISIT ANNUAL PCP TEAM CHRONIC DISEASE VISIT [facility] Start: 02-17-2024 BP CONTROLLED (<130/80) BP CONTROLLE D (<130/80) [facility] Start: 02-05-2024 End: 05-06-2024 Basic metabolic 2000 panel - Serum or Plasma BASIC METABOLIC PNL Lab Routine PROSPER (acute kidney injury) (HCC) Expected: 02/05/2024, Expires: 05/06/2024 [facility] Work Phone: Comment on above: Expected: 02/05/2024 , Expires: 05/06/2024 Start: 01-11-2024 Procedure [facility] Start: 11-25-2023 End: 02-24-2024 Comprehensive metabolic 2000 panel - Serum or Plasma COMP METABOLIC PANEL Lab Routine PROSPER (acute kidney injury) (HCC) Expected: 11/25/2023, Expires: 02/24/2024 [facility] Work Phone: Comment on above: Expected: 11/25/2023 , Expires: 02/24/2024 Start: 10-22-2023 Colonoscopy COLONOSCOPY [facility] Start: 10-22-2023 COLORECTAL CANCER SCREENING COLORECTAL CANCER SCREENING [facility] Start: 10-22-2023 Screening for malign ant neoplasm of colon [facility] Start: 06-17-2023 Hepatitis B surface antibody level LDL Cholesterol [facility] Start: 05-19-2023 Covid-19 Vaccine ( season) Covid-19 Vaccine () [facility] Start: 05-19-2023 Influenza vaccination C [facility] Start: 05-16-2023 ANNUAL PCP TEAM LEARNING COACH MANJULA DISEASE VISIT ANNUAL PCP TEAM CHRONIC DISEASE VISIT [facility] Start: 05-16-2023 BP CONTROLLED (<130/80) BP CONTROLLE D (<130/80) [facility] Start: 03-14-2023 Mammography MAMMOGRAM [facility] Start: 03-07-2023 ANNUAL PCP TEAM LEARNING COACH MANJULA DISEASE VISIT ANNUAL PCP TEAM CHRONIC DISEASE VISIT [facility] Start: 03-07-2023 BP CONTROLLED (<130/80) BP CONTROLLE D (<130/80) [facility] Start: 03-07-2023 Influenza [facility] Comment on above: Postponed from 11/03 (Declined at this time) Start: 02-20-2023 End: 04-22-2023 POTASSIUM BLD POTASSIUM BLD Lab Routine Hyperkalemia Expected: 02/20/2023, Expires: 04/22/2023 [facility] Work Phone: Comment on above: Expected: 02/20/2023 , Expires: 04/22/2023 Start: 02-16-2023 End: 04-18-2023 CBC W Auto Differential panel - Blood [facility] Work Phone: Comment on above: Expected: 02/16/2023 , Expires: 04/18/2023 Start: 02-16-2023 End: 04-18-2023 Comprehensive metabolic 2000 panel - Serum or Plasma [facility] Work Phone: Comment on above: Expected: 02/16/2023 , Expires: 04/18/2023 Start: 01-10-2023 Procedure [facility] Start: 09-06-2022 End: 11-06-2022 Comprehensive metabolic 2000 panel - Serum or Plasma COMP METABOLIC PANEL Lab Routine Prediabetes Expected: 09/06/2022, Expires: 11/06/2022 [facility] Work Phone: Comment on above: Expected: 09/06/2022 , Expires: 11/06/2022 Start: 09-06-2022 End: 11-06-2022 Hemoglobin A1c in Blood HGB A1C Lab Routine Prediabetes Expected: 09/06/2022, Expires: 11/06/2022 [facility] Work Phone: Comment on above: Expected: 09/06/2022 , Expires: 11/06/2022 Start: 06-09-2022 End: 08-09-2022 Comprehensive metabolic 2000 panel - Serum or Plasma COMP METABOLIC PANEL Lab Routine Hyperlipidemia, mixed Expected: 06/09/2022, Expires: 08/09/2022 [facility] Work Phone: Comment on above: Expected: 06/09/2022 , Expires: 08/09/2022 Start: 06-09-2022 End: 08-09-2022 LIPID PANEL, NONFASTING LIPID PANEL, NONFASTING Lab Routine Hyperlipidemia, mixed Expected: 06/09/2022, Expires: 08/09/2022 [facility] Work Phone: Comment on above: Expected: 06/09/2022 , Expires: 08/09/2022 Start: 05-19-2022 Influenza vaccination INFLUENZA (#1) [facility] Start: 05-02-2022 COVID-19 VACCINE (5 - Booster for Pfizer series) COVID-19 VACCINE (5 - Booster for Pfizer series) [facility] Start: 04-28-2022 End: 06-28-2022 CBC W Auto Differential panel - Blood CBC + DIFF Lab Routine Leukocytosis, unspecified type Expected: 04/28/2022, Expires: 06/28/2022 [facility] Work Phone: Comment on above: Expected: 04/28/2022 , Expires: 06/28/2022 Start: 03-09-2022 End: 05-09-2022 CBC W Auto Differential panel - Blood CBC + DIFF Lab Routine Leukocytosis, unspecified type Expected: 03/09/2022, Expires: 05/09/2022 [facility] Work Phone: Comment on above: Expected: 03/09/2022 , Expires: 05/09/2022 Start: 03-07-2022 End: 05-07-2022 Hemoglobin A1c in Blood [facility] Work Phone: Comment on above: Expected: 03/07/2022 , Expires: 05/07/2022 Start: 01-15-2022 FECAL OCCULT BLOOD FECAL OCCULT BLOO D [facility] Start: 01-15-2022 Screening for malign ant neoplasm of colon Fecal Occult Blood [facility] Start: 03-23-2021 Mammography MAMMOGRAM [facility] Start: 2019 RSV Vaccine (1 - 1-d ose 60+ series) RSV Vaccine (1 - 1-dose 60+ series) [facility] Start: 2009 Influenza vaccination LUNG CANCER SC REENING [facility] Start: 2004 COLOGUARD (FIT-DNA) COLOGUARD (FIT-D NA) [facility] Start: [address] COLONOGRAPHY [facility] Start: 2004 Screening for malign ant neoplasm of colon [facility] Start: 2004 SIGMOIDOSCOPY SIGMOIDOSCOPY [facility] Start: 1989 Zoledronic acid therapy ALPHA- 1 ANTITRYPSIN DEFICIENCY SCREENING [facility] Start: 1977 Anxiety Screening Anxiety Screening [facility] Start: 1977 BP CONTROLLED (<130/80) BP CONTROLLE D (<130/80) [facility] 25-hydroxyvitamin D3 [Mass/volume] in Serum or Plasma VITAMIN D 25 HYDROXY Lab Routine High vitamin D level 12/06/2024 11:20 AM EDT [facility] Bacteria identified in Urine by Culture URINE CULTURE Microbiology Routine Stress incontinence PROSPER (acute kidney injury) (HCC) 10/27/2023 1:32 PM EST [facility] Work Phone: Bacteria identified in Urine by Culture URINE CULTURE Microbiology Routine Urinary frequency 11/17/2023 11:31 AM EST [facility] Work Phone: Bacteria identified in Urine by Culture BACTERIAL CULTURE, URINE Microbiology Routine Urinary frequency 02/12/2025 3:13 PM EDT [facility] Work Phone: End: 01-02-2026 BD DXA TRABECULAR BONE SCORE (TBS) BD DXA TRABECULAR BONE SCORE (TBS) Radiology Routine Asymptomatic menopause 1 Occurrences starting 12/03/2024 until 01/02/2026 [facility] Comment on above: 1 Occurrences starti ng 12/03/2024 until 01/02/2026 COVID & INFLUENZA A/ B & RSV NAAT, ROUTINE COVID & INFLUENZA A/B & RSV NAAT, ROUTINE Microbiology Routine Sore throat 11/09/2023 11:18 AM EST [facility] Work Phone: End: 04-06-2026 CT Chest for screening WO contrast CT LUNG SCREEN WO IVCON Radiology Routine Encounter for screening for lung cancer Tobacco abuse 1 Occurrences starting 03/07/2025 until 04/06/2026 [facility] Work Phone: Comment on above: 1 Occurrences starti ng 03/07/2025 until 04/06/2026 CT Chest for screeni ng WO contrast CT LUNG SCREEN WO IVCON Radiology Routine Encounter for screening for lung cancer Tobacco abuse 04/17/2025 1:48 PM EDT [facility] Work Phone: End: 05-17-2026 CT Chest for screening WO contrast CT LUNG SCREEN WO IVCON Radiology Routine Encounter for screening for lung cancer Former tobacco use 1 Occurrences starting 04/17/2025 until 05/17/2026 [facility] Work Phone: Comment on above: 1 Occurrences starti ng 04/17/2025 until 05/17/2026 End: 11-17-2024 CT LUNG SCREEN WO IVCON CT LUNG SCREEN WO IVCON Radiology Routine Tobacco abuse Encounter for screening for lung cancer 1 Occurrences starting 10/19/2023 until 11/17/2024 [facility] Work Phone: Comment on above: 1 Occurrences starti ng 10/19/2023 until 11/17/2024 End: 07-05-2025 DBT Breast - bilateral screening EDDY SCREENING W ROXANNE Radiology Routine Encounter for screening mammogram for breast cancer 1 Occurrences starting 06/05/2024 until 07/05/2025 [facility] Comment on above: 1 Occurrences starti ng 06/05/2024 until 07/05/2025 End: 01-02-2026 DBT Breast - bilateral screening EDDY SCREENING W ROXANNE Radiology Routine Encounter for screening mammogram for breast cancer 1 Occurrences starting 12/03/2024 until 01/02/2026 [facility] Comment on above: 1 Occurrences starti ng 12/03/2024 until 01/02/2026 End: 04-13-2023 Diagnostic mammography computer-aided detcj uni EDDY DIAGNOSTIC LT Radiology Routine Abnormal mammogram 1 Occurrences starting 03/14/2022 until 04/13/2023 [facility] Work Phone: Comment on above: 1 Occurrences starti ng 03/14/2022 until 04/13/2023 End: 01-02-2026 DXA Skeletal system.axial Views for bone density DXA-AXIAL SKELETON Radiology Routine Asymptomatic menopause 1 Occurrences starting 12/03/2024 until 01/02/2026 [facility] Comment on above: 1 Occurrences starti ng 12/03/2024 until 01/02/2026 End: 02-17-2024 ECG COMPLETE ECG COMPLETE ECG Routine Chest pain, unspecified type 1 Occurrences starting 02/16/2023 until 02/17/2024 [facility] Work Phone: Comment on above: 1 Occurrences starti ng 02/16/2023 until 02/17/2024 End: 05-31-2026 LUNG VOLUMES LUNG VOLUMES PFT Routine Chronic obstructive pulmonary disease, unspecified COPD type (HCC) 1 Occurrences starting 05/01/2025 until 05/31/2026 [facility] Comment on above: 1 Occurrences starti ng 05/01/2025 until 05/31/2026 End: 05-18-2024 EDDY SCREENING EDDY SCREENING Radiology Routine Encounter for screening mammogram for breast cancer 1 Occurrences starting 04/19/2023 until 05/18/2024 [facility] Work Phone: Comment on above: 1 Occurrences starti ng 04/19/2023 until 05/18/2024 End: 02-12-2026 MG Breast - left Diagnostic for implant EDDY DIAGNOSTIC LEFT Radiology Routine Abnormal mammogram 1 Occurrences starting 01/13/2025 until 02/12/2026 [facility] Work Phone: Comment on above: 1 Occurrences starti ng 01/13/2025 until 02/12/2026 End: 03-17-2024 NM CARDIAC PERF STRESS/PHARM NM CARDIAC PERF STRESS/PHARM Radiology SORAIDA Chest pain, unspecified type 1 Occurrences starting 02/16/2023 until 03/17/2024 [facility] Work Phone: Comment on above: 1 Occurrences starti ng 02/16/2023 until 03/17/2024 End: 04-10-2025 NM Heart Perfusion W stress and W radionuclide IV NM CARDIAC PERF STRESS/PHARM Radiology Routine Coronary artery calcification seen on CAT scan GILL (dyspnea on exertion) Abnormal ECG Primary hypertension Hyperlipidemia, mixed 1 Occurrences starting 03/11/2024 until 04/10/2025 [facility] Work Phone: Comment on above: 1 Occurrences starti ng 03/11/2024 until 04/10/2025 Patient Education ED Neck Spasm, No Trauma [facility] Work Phone: End: 05-16-2023 PVR ANK PRESS MANDI VAS LAB PVR ANK PRESS MANDI VAS LAB Vascular Lab Routine Decreased pedal pulses 1 Occurrences starting 05/16/2022 until 05/16/2023 [facility] Work Phone: Comment on above: 1 Occurrences starti ng 05/16/2022 until 05/16/2023 End: 11-23-2024 Screening colonoscopy COLONOSCOPY SCREENING Endoscopy Routine Screening for colon cancer Tubulovillous adenoma 1 Occurrences starting 11/24/2023 until 11/23/2024 [facility] Work Phone: Comment on above: 1 Occurrences starti ng 11/24/2023 until 11/23/2024 End: 04-06-2023 Screening mammography bi 2-view breast inc cad EDDY SCREENING Radiology Routine Screening mammogram for breast cancer 1 Occurrences starting 03/07/2022 until 04/06/2023 [facility] Work Phone: Comment on above: 1 Occurrences starti ng 03/07/2022 until 04/06/2023 End: 05-31-2026 SPIROMETRY - BASELINE AND POST DILATOR SPIROMETRY - BASELINE AND POST DILATOR PFT Routine Chronic obstructive pulmonary disease, unspecified COPD type (HCC) 1 Occurrences starting 05/01/2025 until 05/31/2026 [facility] Work Phone: Comment on above: 1 Occurrences starti ng 05/01/2025 until 05/31/2026 SURGICAL PATHOLOGY [facility] Work Phone: Comment on above: Release Upon Johnathanin g for 1 Occurrences starting 04/09/2024, 1 completed Thyrotropin [Units/volume] in Serum or Plasma THYROID STIMULATING HORMONE Lab Routine Elevated TSH 12/06/2024 11:20 AM EDT [facility] Thyroxine (T4) free [Mass/volume] in Serum or Plasma T4 FREE/FREE THYROXINE Lab Routine Elevated TSH 12/06/2024 11:20 AM EDT [facility] Urinalysis complete panel - Urine URINALYSIS, WITH MICROSCOPIC Lab Routine Stress incontinence PROSPER (acute kidney injury) (HCC) 10/27/2023 1:32 PM EST [facility] Work Phone: End: 02-12-2026 US Breast - left limited US BREAST LTD LEFT Radiology Routine Abnormal mammogram 1 Occurrences starting 01/13/2025 until 02/12/2026 [facility] Comment on above: 1 Occurrences starti ng 01/13/2025 until 02/12/2026 End: 04-13-2023 Us breast uni real time with image limited US BREAST LTD LT Radiology Routine Abnormal mammogram 1 Occurrences starting 03/14/2022 until 04/13/2023 [facility] Work Phone: Comment on above: 1 Occurrences starti ng 03/14/2022 until 04/13/2023 [facility] Immunizations Immunization Date Immunization Notes Care Provider Fa valeria 12-03-2024 COVID-19 vaccine, ag e 12+ yr ([facility] Jessica Palencia DIGITAL TECHNICIAN.KATHLEEN Work Phone: [facility] 12-03-2024 pneumococcal conjuga te (PCV20) vaccine, 20 valent (PREVNAR 20) Jessica Palencia DIGITAL TECHNICIAN.KATHLEEN Work Phone: [facility] 12-03-2024 pneumococcal Conjuga te, unspecified formulation Jessica Palencia DIGITAL TECHNICIAN.INSPECTOR [employer]AMES Work Phone: [facility] 06-27-2024 COVID-19 original vaccine, age 12+ yr, monovalent (PFIZER-BIONTECH - PURPLE TOP) Alexandra Bassett MA [facility] 06-27-2024 COVID-19 vaccine, ag e 12+ yr (PFIZER-BIONTECH COMIRNATY) Negrito Wilburn MD Work Phone: [facility] 06-18-2024 influenza, seasonal, injectable, preservative free Negrito Wilburn MD Work Phone: [facility] 06-18-2024 Seasonal, trivalent, recombinant, injectable influenza vaccine, preservative free Alexandra Bassett MA [facility] 06-18-2024 influenza virus vaccine, unspecified formulation Jeanne Cotton DIGITAL TECHNICIAN.INSPECTOR [employer] Work Phone: [facility] 08-28-2023 Influenza, injectabl e, Madin [place] Canine Kidney, preservative free, quadrivalent Negrito Wilburn MD Work Phone: [facility] 08-28-2023 respiratory syncytia l virus (RSV) vaccine, adjuvanted (AREXVY) Negrito Wilburn MD Work Phone: [facility] 08-28-2023 influenza virus vaccine, unspecified formulation Negrito Wilburn MD Work Phone: [facility] 07-01-2022 Influenza, injectabl e, Madin Katheryn Canine Kidney, preservative free, quadrivalent Negrito Wilburn MD Work Phone: [facility] 07-01-2022 influenza virus vaccine, unspecified formulation Negrito Wilburn MD Work Phone: [facility] 03-07-2022 COVID-19 vaccine, ag e 12+ yr (PFIZER-BIONTECH - HORAN TOP) Omar Amelia RESORT MANAGER Work Phone: [facility] 08-27-2021 COVID-19 vaccine, ag e 12+ yr (PFIZER-BIONTECH - PURPLE TOP) Omar Amelia RESORT MANAGER Work Phone: [facility] 07-14-2021 influenza, injectabl e, quadrivalent, preservative free Omar Amelia RESORT MANAGER Work Phone: [facility] Work Phone: 11-30-2020 zoster vaccine recombinant Omar Amelia RESORT MANAGER Work Phone: [facility] Work Phone: 08-10-2020 zoster vaccine recombinant Omar Amelia RESORT MANAGER Work Phone: [facility] Work Phone: 07-16-2020 Seasonal, quadrivale nt, recombinant, injectable influenza vaccine, preservative free Omar Amelia RESORT MANAGER Work Phone: [facility] Work Phone: 08-21-2019 pneumococcal conjuga te vaccine, 13 valent Omar Amelia RESORT MANAGER Work Phone: [facility] Work Phone: 05-22-2019 Influenza, injectabl e, Madin Katheryn Canine Kidney, preservative free, quadrivalent Omar Amelia RESORT MANAGER Work Phone: [facility] Work Phone: 08-17-2018 pneumococcal polysaccharide vaccine, 23 valent Omar Amelia RESORT MANAGER Work Phone: [facility] 07-03-2018 influenza, seasonal, injectable, preservative free Omar Amelia RESORT MANAGER Work Phone: [facility] Work Phone: 02-22-2016 tetanus toxoid, redu mike diphtheria toxoid, and acellular pertussis vaccine, adsorbed Omar Amelia RESORT MANAGER Work Phone: [facility] 06-18-2015 influenza, seasonal, injectable Omar Amelia RESORT MANAGER Work Phone: [facility] Work Phone: 07-28-2014 influenza, seasonal, injectable Omar Amelia RESORT MANAGER Work Phone: [facility] 06-15-2005 tetanus and diphther ia toxoids, adsorbed, preservative free, for adult use (2 Lf of tetanus toxoid and 2 Lf of diphtheria toxoid) Omar LUCAS Work Phone: [facility] Work Phone: Payers Date Payer Category Payer Medicaid [id number] 2024 Self-pay [id number] 2022 Medicare (Managed Care) [id number] 2022 Unknown [id number] 2020 Medicare UHC MEDICARE UHC DUAL COMPLETE HMO SNP [id number] 2020-Present [phone] [address] [place] [id number] Medicare [id number] 2020 Medicare [id number] 1998 Medicaid [id number] Medicare [id number] Unknown [id number] Unknown [id number] 62 Unknown [id number] 62 Unknown [id number] 62 Unknown [id number] 62 Unknown [id number] 62 Unknown [id number] 62 Social History Date Type Detail Facility Start: 09-18-1972 End: 04-18-2025 Tobacco smoking status NHIS Smokes tobacco daily [facility] Start: 12-09-1967 End: 12-08-2017 History of tobacco use Cigarette Smoker [facility] Start: 08-17-2018 End: 03-06-2023 Cigarettes smoked current (pack per day) - Reported 0.5 [facility] Start: 08-17-2018 End: 04-18-2025 Tobacco use and exposure Smokeless tobacco non-user [facility] Start: 03-07-2022 End: 11-24-2023 Alcohol intake Current non-drinker of alcohol (finding) [facility] Start: 02-18-2019 History SDOH Alcohol Comment sober since 01/2019 [facility] Start: 02-18-2019 End: 05-16-2022 Tobacco Comment currently 7 cigarettes per day 02/18/2019 [facility] Start: 1960 Sex Assigned At Not on file [facility] Start: 02-25-2022 End: 05-18-2022 Exposure to SARS-CoV-2 (event) Not sure [facility] Start: 05-02-2022 End: 05-12-2022 Exposure to SARS-CoV-2 (event) Unable to assess [facility] Work Phone: Start: 02-04-2019 Tobacco smoking stat us NMIS Unknown if ever smoked [facility] Start: 02-16-2019 Cigarettes [facility] Start: 1960 Sex Assigned At Female W [facility] Start: 03-06-2023 End: 03-15-2023 Tobacco use panel [facility] Start: 08-19-2012 Adult Depression Screening Assessment 0 [facility] Start: 03-02-2023 Gender identity Identifies as female gender (finding) [facility] Start: 03-02-2023 Sexual orientation Homosexual (findi ng) [facility] Start: 09-19-2023 Tobacco Comment Reports 2.5 ci garettes daily as of 09/19/23 [facility] Start: 11-17-2023 Tobacco Comment Reports 2.5 ci garettes daily as of [facility] Start: 04-09-2024 End: 05-31-2025 Alcohol intake Current drinker of alcohol (finding) [facility] Start: 04-09-2024 Tobacco Comment Reports 7 ciga rettes daily as of 04/09/2024 [facility] Start: 04-09-2024 Alcohol Comment socially [facility] Medical Equipment Procedure Code Equipment Code Equipment Origin al Text Equipment Identifier Dates Cage Spnl Tri 8x 23mm 6d 11mm - [id number] Start: 02-22-2018 Screw Manda 3 Annette nium Set Darrius Spine - [id number] Start: 02-22-2018 Ruben Manda 3 6mm Titanium 35mm Spinal Radiolucent - [id number] Start: 02-22-2018 Screw Manda 3 Serr viraj 5.5mm 40mm Bone Polyaxial Nonsterile Spine - [id number] Start: 02-22-2018 Screw Manda 3 Serr viraj 6mm 40mm Bone Polyaxial Nonsterile Spine - [id number] Start: 02-22-2018 Goals Date Patient Goal Desired Activity /State Personal health goal Functional Status Date Assessment Result Facility 02-25-2018 Are you deaf, or do you have serious difficulty hearing No 02/25/2018 4:36 PM COLLEENT Hodan Warner RN No [facility] 02-25-2018 Are you blind, or do you have serious difficulty seeing, even when wearing glasses No 02/25/2018 4:36 PM Hodan Trevizo RN No [facility] 02-25-2018 Do you have serious difficulty walking or climbing stairs Yes 02/25/2018 4:36 PM Hodan Trevizo RN Yes [facility] 02-25-2018 Do you have difficul ty dressing or bathing Yes 02/25/2018 4:36 PM Hodan Trevizo RN Yes [facility] 02-25-2018 Because of a physica l, mental, or emotional condition, do you have difficulty doing errands alone such as visiting a physician's office or shopping Yes 02/25/2018 4:36 PM EDT Hodan Warner, RN Yes [facility] Center Mental Status Date Assessment Result Facility 04-02-2025 Cognitive function Level Of Cons ciousness Awake;Alert;Appropriate [facility] Work Phone: 02-25-2018 Because of a physica l, mental, or emotional condition, do you have serious difficulty concentrating, remembering, or making decisions No 02/25/2018 4:36 PM EDT Hodan Warner, RN No [facility] Clinical Notes 08-31-2012 to 06-02-2025 Telephone Encounter - Danielle Coronado LPN - 06/02/2025 9:20 AM EDTTelephone Encounter - Danielle Coronado LPN - 06/02/2025 9:20 AM EDTPatient InstructionsPatient InstructionsPatient Instructions Note Date & Type Note Facility 06-02-2025 Telephone encounter Note Patient called. Verified name and date of . Patient wanted to let you know she has been taking the Singulair and it has made a world of difference for her. She appreciates your help. Danielle Coronado LPN [facility] 06-02-2025 Miscellaneous Notes Patient called. Verified name and date of . Patient wanted to let you know she has been taking the Singulair and it has made a world of difference for her. She appreciates your help. Danielle Coronado LPN documented in this encounter [facility] 05-01-2025 Instructions Negrito Wilburn MD - 05/01/2025 2:29 PM EDT - Increase your Symbicort inhaler to the higher strength: take 2 puffs twice a day (new prescription sent to your pharmacy). - Continue using your albuterol (rescue) inhaler as needed for sudden coughing or shortness of breath. - Complete pulmonary function (breathing) testing at the specialty building--your provider has placed the order; call our office to schedule. - Arrange and attend a consultation with a bookkeeper; speak with the java front end web developer for available appointments. - Watch for signs of a COPD exacerbation--persistent worsening cough, thicker or darker mucus, increased wheezing or shortness of breath--and call our office immediately if these occur. - If you decide you d like help quitting smoking, please let us know so we can support you with a cessation plan. documented in this encounter [facility] 05-01-2025 Note HNO ID: [id number] Author: NEGRITO WILBURN MD Service: ? Author Type: Physician Type: Progress Notes Filed: 05/01/2025 14:30 Note Text: Chief Complaint Patient presents with: Cough: Chronic cough for over a year. Excessive mucus production. Does not see Pulmonary. States she's been dx with COPD. Does have shortness of breath. More so with exertion but can be anytime. Denies chest pain. Unsure if her Symbicort is helping. Albuterol does help. Recording using [employer] software for draft documentation of the visit was discussed with the patient/authorized accounting representative; all questions welcomed and answered. Patient/authorized accounting representative agreed to proceed HPI Molly Hidalgo is a 64 year old female who presents here today for Above Complaints. COPD: - Chronic episodes of severe coughing with copious clear sputum production, occurring intermittently for over a year. - Episodes last 2-5 days, followed by a symptom-free period of 2-5 days. - Associated symptoms include nocturnal cough, yellow crusting around eyes, and yellow nasal discharge. - Reports significant fatigue during episodes. - Denies fever, chills, chest pain, or production of yellow/green sputum. - Uses albuterol inhaler PRN, sometimes BID during episodes. - Currently on Symbicort 80/4.5 mcg, BID; unsure of its efficacy. - Recently started on Montelukast by TUTU Perez at the lung cancer screening clinic; no noticeable improvement. - Last pulmonary function test in 2019. - Denies current pulmonology follow-up. - Current smoker, gradually reducing cigarette consumption; plans to reduce to 6 cigarettes/day tomorrow. Does not want help with cessation. Past medical history, appointments, medications, allergies reviewed. Previous Medical History PAST MEDICAL HISTORY Diagnosis Date Abnormal glandular Papanicolaou smear of cervix Abn. Pap smear (cervix) Bulimia (HCC) Chronic lower back pain Dr. Hall Colon polyps hyperplastic polyp 2014 COPD (chronic obstructive pulmonary disease) (HCC) 02/16/2023 Depression Diaphragmatic hernia without mention of obstruction or gangrene Esophageal reflux 06/09/2005 Family history of coronary artery disease Fatty liver 10/19/2023 Fibromyalgia History of alcohol dependence ([facility]) History of drug abuse ([facility]) marijuana, cocaine, acid, methamphetamines, speed. Sober since [...] on File Prior to Visit Medication Sig montelukast (SINGULAIR) 10 mg tablet Take 1 tablet by mouth daily at bedtime. omeprazole (PRILOSEC) 40 mg capsule Take 1 capsule by mouth once daily. lisinopril (ZESTRIL) 10 mg tablet Take 0.5 tablets by mouth once daily. DULoxetine (CYMBALTA) 60 mg capsule Take 1 capsule by mouth once daily. patient assistance levothyroxine (SYNTHROID) 25 mcg tablet Take 1 tablet by mouth once daily. metFORMIN (GLUCOPHAGE) 500 mg tablet Take 1 tablet by mouth two times a day with meals. . budesonide-formoterol (SYMBICORT) 80-4.5 mcg/actuation inhaler Inhale 2 puffs as instructed two times a day. rosuvastatin (CRESTOR) 20 mg tablet Take 1 tablet by mouth daily at bedtime. pregabalin (LYRICA) 100 mg capsule Take 1 capsule by mouth two times a day for 90 days. Take one capsule three times a day albuterol HFA (VENTOLIN HFA) 90 mcg/act (more content not included)... [facility] 05-01-2025 History of Present illness Narrative Chief Complaint Patient presents with: Cough: Chronic cough for over a year. Excessive mucus production. Does not see Pulmonary. States she's been dx with COPD. Does have shortness of breath. More so with exertion but can be anytime. Denies chest pain. Unsure if her Symbicort is helping. Albuterol does help. Recording using [employer] software for draft documentation of the visit was discussed with the patient/authorized accounting representative; all questions welcomed and answered. Patient/authorized accounting representative agreed to proceed HPI Molly Hidalgo is a 64 year old female who presents here today for Above Complaints. COPD: - Chronic episodes of severe coughing with copious clear sputum production, occurring intermittently for over a year. - Episodes last 2-5 days, followed by a symptom-free period of 2-5 days. - Associated symptoms include nocturnal cough, yellow crusting around eyes, and yellow nasal discharge. - Reports significant fatigue during episodes. - Denies fever, chills, chest pain, or production of yellow/green sputum. - Uses albuterol inhaler PRN, sometimes BID during episodes. - Currently on Symbicort 80/4.5 mcg, BID; unsure of its efficacy. - Recently started on Montelukast by TUTU Perez at the lung cancer screening clinic; no noticeable improvement. - Last pulmonary function test in 2019. - Denies current pulmonology follow-up. - Current smoker, gradually reducing cigarette consumption; plans to reduce to 6 cigarettes/day tomorrow. Does not want help with cessation. Past medical history, appointments, medications, allergies reviewed. Previous Medical History PAST MEDICAL HISTORY Diagnosis Date Abnormal glandular Papanicolaou smear of cervix Abn. Pap smear (cervix) Bulimia (HCC) Chronic lower back pain Dr. Hall Colon [...] on File Prior to Visit Medication Sig montelukast (SINGULAIR) 10 mg tablet Take 1 tablet by mouth daily at bedtime. omeprazole (PRILOSEC) 40 mg capsule Take 1 capsule by mouth once daily. lisinopril (ZESTRIL) 10 mg tablet Take 0.5 tablets by mouth once daily. DULoxetine (CYMBALTA) 60 mg capsule Take 1 capsule by mouth once daily. patient assistance levothyroxine (SYNTHROID) 25 mcg tablet Take 1 tablet by mouth once daily. metFORMIN (GLUCOPHAGE) 500 mg tablet Take 1 tablet by mouth two times a day with meals. . budesonide-formoterol (SYMBICORT) 80-4.5 mcg/actuation inhaler Inhale 2 puffs as instructed two times a day. rosuvastatin (CRESTOR) 20 mg tablet Take 1 tablet by mouth daily at bedtime. pregabalin (LYRICA) 100 mg capsule Take 1 [...] Take 1 tablet by mouth once daily. buPROPion XL (WELLBUTRIN XL) 300 mg 24 hr tablet Take 1 tablet by mouth once daily. (Patient not taking: Reported on 05/01/2025) No current facility-administered medications on file prior to visit. Social History SOCIAL HISTORY[1] Review of Symptoms REVIEW OF SYSTEMS GENERAL: No weight loss, malaise or fevers RESPIRATORY: See HPI CARDIOVASCULAR: Negative for chest pain, leg swelling, hypertension, CHF or palpitations GI: No nausea, vomiting, or diarrhea SKIN: Negative for lesions, rash, and itching EXAM: BP 104/66 Pulse 94 Temp 36.8 C (98.2 F) Ht 151.5 cm (4' 11.65) Wt 59.6 kg (131 lb 6.4 oz) LMP 08/02/2005 SpO2 94% BMI 25.96 kg/m General Appearance: Well appearing, alert, in no acute distress, well-hydrated, well nourished.. Skin: Skin color, texture, turgor normal, no suspicious rashes or lesions. Lungs: Lungs clear to auscultation. No wheezing, rhonchi, rales.. Heart: RRR without murmur, gallop, or rubs. No ectopy. Health Maintenance List Anxiety Screening Never done Medicare Advantage Annual Wellness Visit Never done Advance Directive Discussion Never done Influenza Vaccine(1) due on 05/19/2025 LDL Cholesterol due on 06/05/2025 Mammogram Screening due on 01/09/2026 DTaP,Tdap,Td Vaccine(2 - Td or Tdap) due on 02/21/2026 Lung Cancer Screening due on 04/17/2026 Annual PCP Team Chronic Disease Visit due on 05/01/2026 Diabetes Screening due on 12/04/2027 Lipid Screening due on 06/05/2029 Colorectal Cancer Screening due on 04/09/2034 Bone Density Screening Completed RSV Vaccine Completed Hepatitis C Screening Completed HIV Screening Completed Shingrix Vaccine Completed Pneumococcal Vaccine: 50+ Completed Cervical Cancer Screening Discontinued 1. Chronic obstructive pulmonary disease, unspecified COPD type (HCC) (J44.9) 2. Tobacco use disorder (F17.200) - Chronic, worsening symptoms over the past year, including recurrent episodes of severe cough, increased clear sputum production, wheezing, and dyspnea; currently using albuterol inhaler up to BID during episodes. - Lungs clear to auscultation today; no evidence of acute infection or pneumonia. - Increase Symbicort dose from 80/4.5 mcg to 160/4.5 mcg, 2 puffs BID. - Continue albuterol inhaler PRN. - Order pulmonary function testing. - Refer to pulmonology for further evaluation and management. - Advised to notify clinic immediately if symptoms of COPD exacerbation develop, including persistent worsening cough, increased or darker sputum, or increased dyspnea and wheezing. - Discussed risks of continued tobacco use and strongly encouraged cessation; offered assistance if patient decides to quit. - Follow-up next month to reassess symptoms and response to increased Symbicort dose. Negrito Wilburn MD [1] Social History Tobacco Use Smoking status: Every Day Current packs/day: 1.00 Average packs/day: 1 pack/day for 52.6 years (52.6 ttl pk-yrs) Types: Cigarettes Start date: 1973 Smokeless tobacco: Never Tobacco comments: Reports 7 cigarettes daily as of 04/09/2024 Vaping Use Vaping status: Never Used Substance Use Topics Alcohol use: Yes Comment: socially Drug use: No Comment: none in many yrs documented in this encounter [facility] 04-18-2025 Note HNO ID: [id number] Author: TATYANA PEREZ APRN.[employer] Service: ? Author Type: Nurse Practitioner Type: Progress Notes Filed: 04/18/2025 13:08 Note Text: [facility] Lung Cancer Screening Annual Visit Current or Ex-smoker? [Current] Exam Type: annual LDCT Number of Pack Years: 52 Current smoker (=0) or Number of Years since Quit:0 The patient's smoking history is similar to prior year lung cancer screening visit. Chief Complaint: Established patient in lung cancer screening program here for annual follow-up and preliminary evaluation of today's LDCT exam for lung nodule surveillance/management. Impression / Recommendations Assessment: Molly Hidalgo is at an increased risk for developing lung cancer based on their past tobacco use and continues to qualify for annual low dose CT screening. Plan: Indeterminate pulmonary nodules: Previously identified lung nodules appear stable and no new nodules of concern were noted during preliminary review of today's exam. Anticipated result: LUNG RADS Category 2 - Low dose CT Scan to be repeated in one year. Plan subject to change pending final radiology report and recommendations. Nature of the lung nodule(s) and the recommendations for further evaluation discussed in detail with patient. Molly Hidalgo expressed understanding and is in agreement with plan. 2. Encounter for screening for malignant neoplasm of respiratory organs I have determined that the patient is eligible for continued low dose CT screening based on age, absence of signs or symptoms of lung cancer, smoking history and total pack years. The patient was counseled on the importance of adherence to annual LDCT lung cancer screening, impact of comorbidities and ability or willingness to undergo diagnosis and treatment. The patient understands and would like to continue with annual lung screening: Yes. 3. Personal history of nicotine dependence reports that she has been smoking cigarettes. She started smoking about 57 years ago. She has never used smokeless tobacco. The patient was counseled on the importance of smoking cessation if current smoker and, if appropriate, offered additional tobacco cessation counseling services - Smoking Cessation Counseling. SMOKING CESSATION COUNSELING Smoking cessation methods including Behavior Modification were discussed with the patient and assistance offered. The medical conditions adversely affected by cigarette use include:COPD, Emphysema, and Lung Cancer. Counseled on benefits of quitting smoking, recommended cessation or reduction to prevent development and/or progression of emphysema. The patient is currently not ready to quit. I personally spent 3 minutes in counseling. The time spent in smoking cessation counseling is exclusive of any other counseling during this visit. 4. Chronic obstructive pulmonary disease, unspecified COPD type (HCC) (J44.9) Patient experiences respiratory symptoms including coughing and mucus production, using Symbicort daily and albuterol as needed (approximately 3 times a week during flare-ups). Pulmonary function tests did not show significant abnormalities, but eosinophils were slightly elevated, suggesting possible airway reactivity. - Initiated Singulair 10 mg orally once daily in the evening to address airway reactivity and reduce mucus production. - Educated patient on potential side effects of Singulair, including drowsiness and rare mental health effects such as suicidal thoughts; advised to discontinue use and seek medical attention if severe side effects occur. - Follow-up with primary care physician Dr. Wilburn on June 06 to discuss referral to rheumatology for further evaluation of potential autoimmune etiology. Tatyana Perez APRN.[facility] History of Present Illness: Mel Hidalgo is a 64-year-old female with a history of smoking and lung nodule annual follow up. Mel reports feeling crappy and experiencing symptoms that she attributes to a suspected autoimmune disease. She describes feeling like she has a cold or flu approximately 3 days per week, with symptoms including clear sputum production, myalgias, and crusty eyes. She also reports a persistent neck ache that recently required an ED visit. She denies dysphagia or coughing during meals. Mel has been evaluated by two providers and is awaiting a referral to a mental health consultant. She is currently taking an [id number] antihistamine, which she initially thought was effective but now believes coincided with good days. She uses Symbicort daily and albuterol as needed, approximately 3 times per week during flare-ups. She notes that talking and exposure to dust exacerbate her cough. Mel has a guinea pig at home and suspects that its cedar shavings and [place] hay m (more content not included)... [facility] 04-18-2025 History of Present illness Narrative [facility] Lung Cancer Screening Annual Visit Current or Ex-smoker? [Current] Exam Type: annual LDCT Number of Pack Years: 52 Current smoker (=0) or Number of Years since Quit:0 The patient's smoking history is similar to prior year lung cancer screening visit. Chief Complaint: Established patient in lung cancer screening program here for annual follow-up and preliminary evaluation of today's LDCT exam for lung nodule surveillance/management. Impression / Recommendations Assessment: Molly Hidalgo is at an increased risk for developing lung cancer based on their past tobacco use and continues to qualify for annual low dose CT screening. Plan: Indeterminate pulmonary nodules: Previously identified lung nodules appear stable and no new nodules of concern were noted during preliminary review of today's exam. Anticipated result: LUNG RADS Category 2 - Low dose CT Scan to be repeated in one year. Plan subject to change pending final radiology report and recommendations. Nature of the lung nodule(s) and the recommendations for further evaluation discussed in detail with patient. Molly Hidalgo expressed understanding and is in agreement with plan. 2. Encounter for screening for malignant neoplasm of respiratory organs I have determined that the patient is eligible for continued low dose CT screening based on age, absence of signs or symptoms of lung cancer, smoking history and total pack years. The patient was counseled on the importance of adherence to annual LDCT lung cancer screening, impact of comorbidities and ability or willingness to undergo diagnosis and treatment. The patient understands and would like to continue with annual lung screening: Yes. 3. Personal history of nicotine dependence reports that she has been smoking cigarettes. She started smoking about 57 years ago. She has never used smokeless tobacco. The patient was counseled on the importance of smoking cessation if current smoker and, if appropriate, offered additional tobacco cessation counseling services - Smoking Cessation Counseling. SMOKING CESSATION COUNSELING Smoking cessation methods including Behavior Modification were discussed with the patient and assistance offered. The medical conditions adversely affected by cigarette use include:COPD, Emphysema, and Lung Cancer. Counseled on benefits of quitting smoking, recommended cessation or reduction to prevent development and/or progression of emphysema. The patient is currently not ready to quit. I personally spent 3 minutes in counseling. The time spent in smoking cessation counseling is exclusive of any other counseling during this visit. 4. Chronic obstructive pulmonary disease, unspecified COPD type (HCC) (J44.9) Patient experiences respiratory symptoms including coughing and mucus production, using Symbicort daily and albuterol as needed (approximately 3 times a week during flare-ups). Pulmonary function tests did not show significant abnormalities, but eosinophils were slightly elevated, suggesting possible airway reactivity. - Initiated Singulair 10 mg orally once daily in the evening to address airway reactivity and reduce mucus production. - Educated patient on potential side effects of Singulair, including drowsiness and rare mental health effects such as suicidal thoughts; advised to discontinue use and seek medical attention if severe side effects occur. - Follow-up with primary care physician Dr. Wilburn on June 06 to discuss referral to rheumatology for further evaluation of potential autoimmune etiology. Tatyana Perez APRN.[facility] History of Present Illness: Mel Hidalgo is a 64-year-old female with a history of smoking and lung nodule annual follow up. Mel reports feeling crappy and experiencing symptoms that she attributes to a suspected autoimmune disease. She describes feeling like she has a cold or flu approximately 3 days per week, with symptoms including clear sputum production, myalgias, and crusty eyes. She also reports a persistent neck ache that recently required an ED visit. She denies dysphagia or coughing during meals. Mel has been evaluated by two providers and is awaiting a referral to a mental health consultant. She is currently taking an ndub-vlf-llwcmoo antihistamine, which she initially thought was effective but now believes coincided with good days. She uses Symbicort daily and albuterol as needed, approximately 3 times per week during flare-ups. She notes that talking and exposure to dust exacerbate her cough. Mel has a guinea pig at home and suspects that its cedar shavings and [place] hay may be contributing to her symptoms. She expresses frustration with her inability to help her 87-year-old mother, who has ITP, due to her own health issues. She also mentions that her sister has gluten and lactose intolerance. Last 12 Encounter Wt Readings: Date: Wt: 04/17/2025 60.4 kg (133 lb 2.5 oz) 02/12/2025 60.7 kg (133 lb 12.8 oz) 01/27/2025 62.6 kg (138 lb) 12/03/2024 60.9 kg (134 lb 4.2 oz) 06/05/2024 59.9 kg (132 lb 0.9 oz) 04/09/2024 60.3 kg (132 lb 15 oz) 03/11/2024 60.3 kg (132 lb 15 oz) 12/11/2023 60.2 kg (132 lb 12.8 oz) 11/24/2023 61.6 kg (135 lb 12.8 oz) 11/17/2023 63 kg (138 lb 12.8 oz) 11/09/2023 61.2 kg (135 lb) 10/27/2023 60.3 kg (133 lb) Social History Social History Tobacco Use Smoking status: Every Day Packs/day: 0.00 Types: Cigarettes Start date: 12/09/1967 Last attempt to quit: 12/08/2017 Years since quittin.3 Smokeless tobacco: Never Tobacco comments: Reports 7 cigarettes daily as of 04/09/2024 Past Medical History: PAST MEDICAL HISTORY Diagnosis Date Abnormal glandular Papanicolaou smear of cervix 1990s Abn. Pap smear (cervix) Bulimia (HCC) Chronic lower back pain Dr. Hall Colon [...] disease) Prediabetes Pure hypercholesterolemia 06/09/2005 Tobacco use Family Hx: FAMILY HISTORY Problem Relation Age of Onset Heart Father from heart attack, age 50 Hyperlipidemia Father Hypertension Father Hypertension Mother Blood Disease Mother ITP Thyroid Sister Cancer Maternal Grandmother colon Heart Paternal Grandfather Heart Paternal Uncle Cancer Maternal Uncle brain Surgical Hx: PAST SURGICAL HISTORY Procedure Laterality Date COLONOSCOPY [...] RMVL TUBE OVARY Hysterectomy, SEKOU. precancerous cells Allergies: ALLERGIES Allergen Reactions Iodine [Contrast Dy* Swelling PT HAD A REACTION OF SWELLING IN THROAT,TROUBLE BREATHING 24 HRS AFTER INJECTION OF IV DYE FOR A CT UROGRAM. KK Lipitor [Atorvastat* Other: See Comments Skin turned yellow Review Of Systems: See HPI for ROS All of the remainder systems were reviewed and negative. PHYSICAL EXAMINATION: General: Alert, oriented, no acute distress Neck: No carotid bruit on bilateral auscultation Respiratory: Clear to posterior auscultation, bilaterally; mild wheezing noted Cardiovascular: Jugular venous pressure normal. Regular rate and rhythm, normal S1 and S2, no murmurs or added sounds Abdomen: Soft, non-tender, normal bowel sounds Extremities: No clubbing, cyanosis, or edema Data Review I have visually reviewed imaging and testing below CT imaging done today was reviewed independently and compared to prior CT chest imaging by practitioner and awaiting radiology review. Labs: - Eosinophils: Elevated Imaging: - (Today) CT Scan: Right lung nodule stable in size compared to previous imaging, no new abnormalities identified - (09/2023) CT Scan: Right lung nodule observed, stable in size Tests: - Spirometry: No evidence of airway reactivity Imaging Last CT/CTA Chest/Lungs CT LUNG SCREEN WO IVCON Exam End: 04/17/2025 1:48 PM (In process) CT LUNG SCREEN WO IVCON 10/16/2023 Narrative * * *Final Report* * * DATE OF EXAM: Oct 16 2023 2:36PM [facility] [id number] - CT LUNG SCREEN WO IVCON / PROCEDURE REASON: Tobacco abuse * * * * Physician Interpretation * * * * EXAMINATION: CHEST CT WITHOUT CONTRAST (LOW-DOSE CT LUNG CANCER SCREENING PROTOCOL) CLINICAL HISTORY: Lung cancer LDCT screening ? absence of signs or symptoms of lung cancer. Nicotine dependence (cigarettes). Baseline (initial) Technique: Spiral CT acquisition of the chest from the thoracic inlet to the upper abdomen without contrast. MQ: CTLCS_6 Patient characteristics: * Zdub-jy-Juxuj: 1960; Age at exam: 62 years * Gender: Female * Lung Disease: Asymptomatic (no signs or symptoms of lung disease) * Number of Pack Years: 51 * Current smoker (=0) or Number of Years since Quit: 0 * Ordering provider and NPI: TATYANA PEREZ [id number] * Interpreting radiologist and NPI: Rinku [id number] Exam acquisition parameters: * Exam Date: 10/16/2023 2:36 PM * Site: [facility] * * CT System Dish Carrier: Siemens * CT System Model: Sensation * Tube Current-Time (mA-sec): 18 * Peak Voltage (kV): 120V * Scan Time (sec): 10.87 * Scan Volume (z-length, cm): -28.90 * Pitch: 0.75 * Slice Thickness (mm): 1.5 * CT Dose-Length Product: 67 mGy*cm * CT Dose Index: 1.43mGy * CT Dose Reduction Method: Automated exposure control(AEC) and iterative recon COMPARISON: None available RESULT: Are nodules present? Yes, 1-5 nodules If No, go to Impression . If yes, proceed with characterization of the FIVE largest nodules. Nodule 1: This Solid nodule is located in the Right Middle Lobe on slice number 177 with an average diameter of 5.4 mm. If this is an ANNUAL LDCT for LCS, please ensure nodule number is the same as in the prior evaluation. Other lung nodule comments: There is a 2 mm nonsolid opacity in the subsegmental bronchus of the left upper lobe (5:93), likely representing retained or aspirated secretions. Other findings: Retained or aspirated secretions adherent to the left lateral wall of the intrathoracic trachea. Trachea and central airways otherwise appear patent and devoid of endobronchial lesion. There are mild, upper lobe predominant centrilobular emphysematous changes. There is dependent subpleural reticulation in the right lower lobe with intervening areas of fine cystic lucency suggestive of mild interstitial disease/fibrosis, possibly smoking-related. The lungs are clear of focal consolidation. No pleural effusion or pneumothorax is identified. The thyroid gland appears unremarkable. No supraclavicular lymphadenopathy is identified. There is no region of intrathoracic lymphadenopathy, including the axillae. There is a small hiatal hernia. The thoracic aorta appears normal in course and caliber. There are atherosclerotic calcifications of the thoracic aorta and the left coronary artery circulation. The main and central pulmonary arteries are within normal limits of diameter. The overall heart size is within normal limits. There is no pericardial effusion. Visualized portions of the upper abdomen disclose no acute process. Calcified granulomata are noted in the liver. There are mild compression deformities of the superior endplates of a few midthoracic vertebral bodies. No lytic or destructive osseous lesion is identified. The soft tissues of the chest wall appear unremarkable. Emphysema: Mild (5-25%), Centrilobular, Upper lobe Coronary Artery Calcifications: Circumflex None; Left Anterior Descending Severe; Right Coronary A PCI stent is noted in the right coronary artery circulation. Conservation Officer (topogram) images: Posterior fusion hardware is incidentally noted in the lower lumbar spine. No additional findings. IMPRESSION IMPRESSION: LungRADS category: 2 LungRADS modifier: Significant other (S), coronary artery calcification, moderate or severe LungRADS 0 reason: n/a Recommendations: Continue annual screening with LDCT in 12 months. Other actionable findings: Severe coronary artery calcifications ======= Reference: [employer]. Lung CT Screening Reporting and Data System (Lung-RADS). Available at: http://www.acr.org/Quality-Safety/ Resources/LungRADS Burial Vault Setter: QUINTIN Transcribe Date/Time: Oct 17 2023 1:09P Dictated by : JODY MORSE MD This examination was interpreted and the report reviewed and electronically signed by: JODY MORSE MD on Oct 17 2023 1:33PM EST Pulmonary Function Testing: SPIROMETRY WITH DILATOR IF OBSTRUCTED ([id number]) - ordered on 01/09/19 [facility] [address] [place] [id number] Test Date: 2019-01-09 Pat Name: MOLLY HIDALGO Department: Room: Gender: Female Hand I Blocker: : 1960 Requested By: Order Number: [id number] Reading MD: Clemente Munoz Interpretive Statements ATS acceptability and repeatability standards for spirometry met. 4 puffs of albuterol (360mcg) delivered by MDI via valved holding chamber, HR pre 86, HR post 86. Medications and allergies were reviewed for possible drug interactions per policy MM-102. No Contraindications or sensitivities were noted. IMPRESSION: Spirometry shows FEV1/FVC below the LLN and t he FEV1 is above the predicted LLN, indicating mild obstruction or normal variant. There is no significant bronchodilator response. The expiratory limb of the flow volume loop demonstrates concavity suggestive of expiratory airflow obstruction. Clinical correlation is advised. Electronically Signed On 01-09-2019 13:17:36 EDT by Clemente Munoz [facility] [address] [place] [id number] PFT Lab Report Name: ROCKY, MOLLY S ID: [id number] Date: 01/09/19 Physician: [id number] PODLOGAR JESSICA Age: 58 Height(in): 59.4 Weight(lb): 135 Gender: Female Race: Diagnosis: Medication Set 1: Dyspnea Rest: No Dyspnea Exercise: No Cough: No Persistent: No Productive (cc): Smoker: No How Long: Stopped: Cigarettes : No Hand I Blocker: Joyce Kim RCP Temp: 21 PBar: 739 PF Reference: ######## Spirometry Hb: gm/dL Ref Pre Pre Post Post Post Gracy % Ref Gracy % Ref % Chg FVC Liters 2.80 3.39 121 3.30 118 -3 FEV1 Liters 2.17 2.22 103 2.21 102 -1 FEV1/FVC % 78 66 67 LJB36-39% L/sec 2.14 1.15 54 1.17 55 2 OxkNAP41-05 L/sec 2.34 1.15 49 1.17 50 2 PEF L/sec 5.67 5.52 97 5.11 90 -7 MTU239% Sec 9.62 8.48 -12 MVV L/min 87 f BPM Lung Volumes TLC Liters 4.37 VC Liters 2.80 IC Liters 1.68 FRC N2 Liters 2.44 ERV Liters 0.84 RV Liters 1.74 RV/TLC % 39 Diffusing Capacity DLCO mL/mmHg/min 19.8 DL Adj mL/mmHg/min 19.8 DLCO/VA mL/mHg/min/L 4.67 DL/VA Adj mL/mHg/min/L 4.67 VA Liters 4.25 IVC Liters BHT Sec Resistance Raw cmH2O/L/sec 1.75 sGaw L/s/cmH2O/L 0.255 Respiratory Muscle Force PI max cmH2O 74 PE max cmH2O 139 null Recording using ambient AI software for draft documentation of the visit was discussed with the patient/authorized accounting representative; all questions welcomed and answered. Patient/authorized accounting representative agreed to proceed Some of this note was generated using AI assistance and dictation software, which may result in errors in word translation, typographical mistakes, or grammatical inconsistencies that may not have been identified before finalization. Please consider this when reviewing the note. documented in this encounter [facility] 04-17-2025 Instructions Tatyana Perez APRN.CNP - 04/17/2025 2:34 PM EDT We discussed your respiratory symptoms and possible allergies: - I prescribed Singulair (montelukast) to help with your respiratory symptoms, including mucus production, airway tightness, and coughing. Take one pill daily in the evening. This has been sent to your pharmacy. - Singulair may cause drowsiness, so it is best to take it at bedtime. Rarely, it can cause mental side effects, such as suicidal thoughts, which are more common in children and older adults. If you notice any changes in your thinking or mood, stop taking the medication and contact me immediately. If you have thoughts of harming yourself, call 911 or go to the emergency room. - Continue taking Symbicort daily as prescribed and use your albuterol inhaler as needed for flare-ups. You mentioned using albuterol approximately three times a week during flare-ups. - If Singulair helps, you should notice an improvement in your respiratory symptoms within 30 days. If it does not help, stop taking it and let me know. We discussed your autoimmune symptoms and rheumatology referral: - You are experiencing symptoms such as body aches, flu-like symptoms, and neck pain, which may be related to an autoimmune condition. - You will need a referral to rheumatology from your primary care provider, Dr. Wilburn. Your next appointment with Dr. Wilburn is scheduled for June 06. Please discuss the referral with him at that time. - Rheumatology services are available locally, and appointments may be scheduled quickly. You may want to consider this option for convenience. We reviewed your imaging results: - I compared your current scan to the one from September 2023. There are no new findings, and the lung nodule remains unchanged in size. This is reassuring. Please monitor your symptoms and let me know if they worsen or if you experience any new issues. documented in this encounter [facility] 04-17-2025 History of Present illness Narrative Radiology Service Progress Note PATIENT NAME: Molly Hidalgo DATE OF SERVICE: April 17, 2025 TIME: 3:56 PM PATIENT IDENTITY VERIFICATION COMPLETED USING TWO [...] PATIENT PRESENTS WITH AN IMPLANTABLE OR ATTACHED VEGETABLE LOADER MACHINE OPERATOR: No RADIOLOGY DEPARTMENT: CT; Exam(s) Completed: Lung Screening PERIPHERAL IV DATA: Not applicable SIGNED BY: RT Kym(R) April 17, 2025 3:56 PM documented in this encounter [facility] 04-17-2025 Note HNO ID: [id number] Author: DANIELLE SINGLETON RT(Jeremy) Service: ? Author Type: Hand I Blocker Type: Progress Notes Filed: 04/17/2025 15:56 Note Text: Radiology Service Progress Note PATIENT NAME: Molly Hidalgo DATE OF SERVICE: April 17, 2025 TIME: 3:56 PM PATIENT IDENTITY VERIFICATION COMPLETED USING TWO [...] PATIENT PRESENTS WITH AN IMPLANTABLE OR ATTACHED VEGETABLE LOADER MACHINE OPERATOR: No RADIOLOGY DEPARTMENT: CT; Exam(s) Completed: Lung Screening PERIPHERAL IV DATA: Not applicable SIGNED BY: RT Kym(R) April 17, 2025 3:56 PM [facility] 04-09-2025 Radiology Diagnostic study note [facility] Imaging Services [address] [place] [address] Cerv Spine 2 or 3 Views MR#: [id number] Acct: [id number] Name: MOLLY HIDALGO Rep #: [id number] : 1960 F 64 From: Antwon Lopez MD PCP: Dr. Roger Wilburn MD Status: REG CLI Study:Cerv Spine 2 or 3 Views Date of Exam: 04/08/25 Exam# [id number] Ordering Dr: Jimenez Hall MD PROCEDURE: CERV SPINE 2 OR 3 VIEWS 04/08/2025 REASON FOR EXAM: SPONDYLOSIS WITHOUT MYELOPATHY OR RADICULOPATHY, CERVICAL REGION TECHNIQUE: CERV SPINE 2 OR 3 VIEWS COMPARISON: None. FINDINGS: No evidence of acute fracture or dislocation. Yekbzyax-ai-vtfpxz degenerative changes of the visualized spine. Grade 1 anterolisthesis of C3 on C4. RAD/Cerv Spine 2 or 3 Views IMPRESSION: Spondylosis. Spondylolisthesis. Reading Location: [facility] CC: Dr. Omer Hall MD; Dr. Roger Wilburn MD ~ Burial Vault Setter: Signed [facility] 03-14-2025 Telephone encounter Note Next appt 06/06. It appears pt would need a refill on her Buproprion as well. Called and spoke with pt. She states she weaned herself off of the Buproprion and is not taking it anymore. She didn't think it helped at all. [facility] 03-14-2025 Miscellaneous Notes Next appt 06/06. It [...] 2025 10:00 AM documented in this encounter [facility] 03-13-2025 Telephone encounter Note Prescription Refill Information [...] Sunshine Dinero March 13, 2025 10:00 AM [facility] 03-10-2025 Telephone encounter Note Pt is rescheduled 04/17/2025 [facility] Work Phone: 03-10-2025 Miscellaneous Notes Pt is rescheduled 04/17/2025 Phone call to patient to notify she is scheduled incorrectly on Monday03/10/2025. She will need to reschedule to have CT first. Left message notifying patient. Tatyana Perez APRN.CNP documented in this encounter [facility] 03-07-2025 Telephone encounter Note Phone call to patient to notify she is scheduled incorrectly on Monday03/10/2025. She will need to reschedule to have CT first. Left message notifying patient. Tatyana Perez APRN.INSPECTOR HANDBAG FRAMES [facility] 02-20-2025 Telephone encounter Note Patient notified of results and provider's instructions. Patient verbalizes understanding. Libertad Coleman RN [facility] 02-20-2025 Miscellaneous Notes Patient notified of results [...] Jessica Palencia APRN.CNP documented in this encounter [facility] 02-19-2025 Telephone encounter Note Phoned patient left message to return call and ask to speak to a nurse for results. [facility] 02-19-2025 Telephone encounter Note The focal asymmetry in the left breast at 12 o'clock, middle depth is probably benign. It is favored to represent changes from prior biopsy. Follow-up with diagnostic mammogram is recommended in 6 months. I placed order for this. Jessica Palencia APRN.CNP [facility] 02-19-2025 History of Present illness Narrative Radiology [...] PATIENT PRESENTS WITH AN IMPLANTABLE OR ATTACHED VEGETABLE LOADER MACHINE OPERATOR: No RADIOLOGY DEPARTMENT: Mammography PERIPHERAL IV DATA: Not applicable SIGNED BY: Margie Franz February 19, 2025 1:39 PM documented in this encounter [facility] 02-19-2025 Note HNO ID: [id number] Author: HYUN ARBOLEDA Mammo Tech Service: ? [...] PATIENT PRESENTS WITH AN IMPLANTABLE OR ATTACHED VEGETABLE LOADER MACHINE OPERATOR: No RADIOLOGY DEPARTMENT: Mammography PERIPHERAL IV DATA: Not applicable SIGNED BY: Margie Franz February 19, 2025 1:39 PM [facility] 02-14-2025 Telephone encounter Note Placed call to patient with no answer. Left detailed message informing her that abx was sent to pharmacy. Vm verified. Miriam Hansen MA [facility] 02-14-2025 Miscellaneous Notes Placed call to patient with no answer. Left detailed message informing her that abx was sent to pharmacy. Vm verified. Miriam Hansen MA Urine culture preliminary shows bacterial growth with E Coli. Will send in prescription for antibiotic . Jessica Palencia APRN.CNP documented in this encounter [facility] 02-14-2025 Telephone encounter Note Urine culture preliminary shows bacterial growth with E Coli. Will send in prescription for antibiotic . Jessica Palencia APRN.CNP [facility] 02-12-2025 History of Present illness Narrative Radiology [...] PATIENT PRESENTS WITH AN IMPLANTABLE OR ATTACHED VEGETABLE LOADER MACHINE OPERATOR: No RADIOLOGY DEPARTMENT: General X-ray: Exam(s) Completed: Chest X-Ray PERIPHERAL IV DATA: Not applicable SIGNED BY: Laura Gallardo February 12, 2025 3:19 PM documented in this encounter [facility] 02-12-2025 Note HNO ID: [id number] Author: JOI BERNARD Tech Service: ? Author [...] PATIENT PRESENTS WITH AN IMPLANTABLE OR ATTACHED VEGETABLE LOADER MACHINE OPERATOR: No RADIOLOGY DEPARTMENT: General X-ray: Exam(s) Completed: Chest X-Ray PERIPHERAL IV DATA: Not applicable SIGNED BY: Laura Gallardo February 12, 2025 3:19 PM [facility] 02-12-2025 Instructions Jessica Palencia APRN.KATHLEEN - 02/12/2025 2:59 PM EDT - Continue your calcium supplement and vitamin D3 (2,000 IU daily) as prescribed. - Consider starting an arpo-shq-enrmauw antihistamine (Shaista, Zyrtec, or Claritin) and using [...] with Dr. Ana Paula Lopez (urogynecology) in [place]; her office will reach out to schedule [...] start the medication. documented in this encounter [facility] 02-12-2025 Note HNO ID: [id number] Author: JESSICA PALENCIA APRN.KATHLEEN Service: ? Author Type: Nurse Practitioner Type: Progress Notes Filed: 02/12/2025 15:14 Note Text: 02/12/2025 Patient presents with: Cough: Has been coughing since last fall, is having coughing fits and seems to be getting worse UTI: Urgency, frequency, with small amount. Blood noticed x1. Recording using [employer] software for draft documentation of the visit was discussed with the patient/authorized accounting representative; all questions welcomed and answered. Patient/authorized accounting representative agreed to proceed SUBJECTIVE: This is [...] Substance Use Topic (more content not included)... [facility] 02-12-2025 History of Present illness Narrative 02/12/2025 Patient presents with: Cough: Has been coughing since last fall, is having coughing fits and seems to be getting worse UTI: Urgency, frequency, with small amount. Blood noticed x1. Recording using [employer] software for draft documentation of the visit was discussed with the patient/authorized accounting representative; all questions welcomed and answered. Patient/authorized accounting representative agreed to proceed SUBJECTIVE: This is [...] liver 10/19/2023 Fibromyalgia History of alcohol dependence ([facility]) History of drug abuse ([facility]) marijuana, cocaine, acid, methamphetamines, speed. Sober since [...] done LDL Cholesterol due on 06/05/2025 Covid-19 Vaccine() due on 06/05/2025 Mammogram Screening due on [...] placed for Dr. Ana Paula Lopez in [place]. 3. Smoker (F17.200) 4. Chronic cough (R05.3) [...] 4 - Moderate documented in this encounter [facility] 01-30-2025 Telephone encounter Note Please let patient know their labs are normal.Continue levothyroxine at current dose. [facility] Work Phone: 01-30-2025 Miscellaneous Notes Please let patient know their labs are normal.Continue levothyroxine at current dose. documented in this encounter [facility] 01-29-2025 Telephone encounter Note Patient updated with results and voiced understanding. Sharri Mayorga LPN [facility] 01-29-2025 Miscellaneous Notes Patient updated with results and voiced understanding. Sharri Mayorga LPN ----- Message from Negrito Wilburn MD sent at 01/29/2025 6:58 AM EDT ----- Negative for lyme disease. documented in this encounter [facility] 01-29-2025 Telephone encounter Note ----- Message from Negrito Wilburn MD sent at 01/29/2025 6:58 AM EDT ----- Negative for lyme disease. [facility] 01-27-2025 Negrito Gutiérrez MD - 01/27/2025 12:06 PM EDT Apply [...] day as needed. documented in this encounter [facility] 01-27-2025 Note HNO ID: [id number] Author: NEGRITO WILBURN MD Service: ? Author Type: Physician Type: Progress Notes Filed: 01/27/2025 13:43 Note Text: Chief Complaint Patient presents with: Rash: Started approx 5 days ago Recording using [employer] software for draft documentation of the visit was discussed with the patient/authorized accounting representative; all questions welcomed and answered. Patient/authorized accounting representative agreed to proceed HPI Molly Hidalgo [...] packs/day: 0.00 Ty (more content not included)... [facility] 01-27-2025 History of Present illness Narrative Chief Complaint Patient presents with: Rash: Started approx 5 days ago Recording using [employer] software for draft documentation of the visit was discussed with the patient/authorized accounting representative; all questions welcomed and answered. Patient/authorized accounting representative agreed to proceed HPI Molly Hidalgo [...] other dry areas twice daily as needed. Negrito Wilburn MD documented in this encounter [facility] 01-13-2025 Telephone encounter Note Phoned patient went over results, notes from Jessica Palencia NP with understanding. Assisted with transfer to breast center patient registration supervisor to get left breast diagnostic and possible ultrasound appts set up. [facility] 01-13-2025 Miscellaneous Notes Phoned patient went over results, notes from Jessica Palencia NP with understanding. Assisted with transfer to breast center patient registration supervisor to get left breast diagnostic and possible ultrasound appts set up. Please let patient know mammogram shows an architectural distortion in the left breast at 12 o'clock, middle depth requires additional evaluation. Orders for additional imaging placed. Please assist in scheduling. Jessica Palencia APRN.KATHLEEN documented in this encounter [facility] 01-13-2025 Telephone encounter Note Please let patient know mammogram shows an architectural distortion in the left breast at 12 o'clock, middle depth requires additional evaluation. Orders for additional imaging placed. Please assist in scheduling. Jessica Palencia APRN.CNP [facility] 01-13-2025 Telephone encounter Note ----- Message from [...] start biphosphate let me know. Jessica Palencia APRN.KATHLEEN [facility] 01-13-2025 Miscellaneous Notes ----- Message from Jessica Palencia APRN.KATHLEEN sent at 01/13/2025 7:17 AM EDT ----- Bone density testing shows osteoporosis. Recommend biphosphate medication to help prevent future loss of bone. Also recommend vitamin D 2000 units daily along with calcium 1200 mg daily. Recommend weight bearing exercises- light weight lifting and w alking. If patient would like to start biphosphate let me know. Jessica Palencia APRN.CNP documented in this encounter [facility] 01-09-2025 Note HNO ID: [id number] Author: CASSANDRA GROVER Mammo Laura Service: ? Author Type: Hand I Blocker Type: Progress Notes Filed: 01/09/2025 14:54 Note [...] PATIENT PRESENTS WITH AN IMPLANTABLE OR ATTACHED VEGETABLE LOADER MACHINE OPERATOR: No RADIOLOGY DEPARTMENT: Mammography PERIPHERAL IV DATA: Not applicable SIGNED BY: Margie Zeng January 09, 2025 2:53 PM [facility] 01-09-2025 Note HNO ID: [id number] Author: CHELO DANIEL RT(Jeremy) Service: ? Author Type: Technologist Type: Progress [...] PATIENT PRESENTS WITH AN IMPLANTABLE OR ATTACHED VEGETABLE LOADER MACHINE OPERATOR: No RADIOLOGY DEPARTMENT: Bone Density PERIPHERAL IV DATA: Not applicable SIGNED BY: RT Carol Ann(Jeremy) January 09, 2025 2:05 PM [facility] 01-08-2025 Telephone encounter Note Pt states she [...] Bryan RN January 08, 2025 9:22 AM [facility] 01-08-2025 Miscellaneous Notes Pt states [...] 2025 9:22 AM documented in this encounter [facility] 12-09-2024 Telephone encounter Note Pt notified and verbalized understanding Chhaya Pitts MA [facility] 12-09-2024 Miscellaneous Notes Pt notified and verbalized understanding Chhaya Pitts MA Please let patient know her vit d is high. Reduce vitamin d supplementation to twice weekly and recheck in 1 months. documented in this encounter [facility] 12-09-2024 Telephone encounter Note Please let patient know her vit d is high. Reduce vitamin d supplementation to twice weekly and recheck in 1 months. [facility] 12-06-2024 Telephone encounter Note Patient notified of results, verbalizes understanding of instructions. Tisha Mike LPN [facility] 12-06-2024 Miscellaneous Notes Patient notified of results, [...] is in acceptable ranges. Jessica Palencia APRN.CNP documented in this encounter [facility] 12-05-2024 Telephone encounter Note Vitamin d level is elevated and could develop toxicity if she continues taking such a high dosage. I would recommend stopping the supplement and check vitamin D in 1 month. [facility] 12-05-2024 Telephone encounter Note Patient calls and notified of results and providers instructions. Patient verbalizes understanding. Patient reports that she takes Vitamin D 10,000 units daily. Kalyani Hudson RN [facility] 12-04-2024 Telephone encounter Note Vitamin D is elevated. How much vitamin D is she taking daily? TSH is a little elevated. Recommend we recheck level. The rest of her blood work is in acceptable ranges. Jessica Palencia APRN.CNP [facility] 12-03-2024 Instructions Jessica Palencia APRN.CNP - 12/03/2024 [...] usual activities immediately. documented in this encounter [facility] 12-03-2024 Note HNO ID: [id number] Author: JESSICA PALENCIA APRN.INSPECTOR HANDBAG FRAMES Service: ? Author Type: Nurse Practitioner Type: [...] polyp 2014 COPD (chronic obstructive pulmonary disease) ([facility]) 02/16/2023 Depression Diaphragmatic hernia without mention of obstruction or gangrene Esophageal reflux 06/09/2005 Family history of coronary artery disease Fatty liver 10/19/2023 Fibromyalgia History of alcohol dependence ([facility]) History of drug abuse ([facility]) marijuana, cocaine, acid, methamphetamines, speed. Sober since age 20s Hypertension Iron deficiency anemia Lumbar stenosis with neurogenic claudication Mononucleosis Nephrolithiasis PAD (peripheral artery disease) ([facility]) Prediabetes Pure hypercholesterolemia 06/09/2005 Tobacco use ALLERGIES [...] Latest Ref Rng (more content not included)... [facility] 12-03-2024 History of Present illness Narrative 12/03/2024 [...] polyp 2014 COPD (chronic obstructive pulmonary disease) ([facility]) 02/16/2023 Depression Diaphragmatic hernia without mention of obstruction or gangrene Esophageal reflux 06/09/2005 Family history of coronary artery disease Fatty liver 10/19/2023 Fibromyalgia History of alcohol dependence ([facility]) History of drug abuse ([facility]) marijuana, cocaine, acid, methamphetamines, speed. Sober since age 20s Hypertension Iron deficiency anemia Lumbar stenosis with neurogenic claudication Mononucleosis Nephrolithiasis PAD (peripheral artery disease) ([facility]) Prediabetes Pure hypercholesterolemia 06/09/2005 Tobacco use ALLERGIES [...] Abs Lymph 1.00 - 4.00 k/uL 3.88 [place]% % 7.9 Abs [place] <0.87 k/uL 1.13 (H) Eosin% % 6.6 [...] PNEUMOCOCCAL VACCINE, 20 VALENT (PREVNAR 20) - [facility] COVID-19 VACCINE AGE 12+ YR (COMIRNATY) 7. [...] continue Metformin, diet and exercise Jessica Palencia APRN.KATHLEEN Prescription instructions reviewed with [...] 4 - Moderate documented in this encounter [facility] 11-01-2024 Telephone encounter Note Prescription Refill Information [...] Debi Caicedo November 01, 2024 2:11 PM [facility] 11-01-2024 Miscellaneous Notes Prescription Refill Information The [...] 2024 2:11 PM documented in this encounter [facility] 09-24-2024 Telephone encounter Note Prescription Refill Information [...] 1 tablet by mouth once daily. Nneka Dinero September 24, 2024 10:20 AM [facility] 09-24-2024 Miscellaneous Notes Prescription Refill Information The [...] 1 tablet by mouth once daily. Nneka Dinero September 24, 2024 10:20 AM documented in this encounter [facility] 08-19-2024 Note HNO ID: [id number] Author: ALEXANDRA BASSETT MA Service: ? Author Type: Nurseryperson Type: Progress Notes Filed: 08/19/2024 13:53 Note Text: POPULATION HEALTH NAVIGATION OUTREACH Action/FYI Some one answer the phone and hung up [employer] [place] message Topic Due (Y or N) Comments [...] Bassett MA August 19, 2024 7:55 AM [facility] 08-19-2024 History of Present illness Narrative POPULATION HEALTH NAVIGATION OUTREACH Action/FYI Some one answer the phone and hung up [employer] message Topic Due (Y or N) Comments [...] 2024 7:55 AM documented in this encounter [facility] 08-19-2024 Note Patient Outreach (NE TNAV) MOLLY HIDALGO ([id number]) 1960 F Date Time Provider Department 08/19/24 ALEXANDRA BASSETT During your visit today, we recorded the following information about you: Alexandra Bassett MA 08/19/2024 1:53 PM Signed POPULATION HEALTH NAVIGATION OUTREACH Action/FYI Some one answer the phone and hung up [employer] [place] message Topic Due (Y or N) Comments Medicare Wellness PCP Follow up Mammogram Y Colorectal Cancer Screening A1C Dilated Retinal Exam (HAIDER) KED (UACR and eGFR) HCC Y Flu Vaccine Care Everywhere Reviewed StudyRoom Activation Updated Appointment Note Reason for Outreach Care Gap/HCC or Scheduling Wellness Visits Care Gaps due: Medicare Annual Wellness Visit Patient Contacted: Unable or unnecessary to reach patient: Unable to leave message StudyRoom message sent HCC related Navigation Signature: Alexandra [...] Visit: Population Health Navigation Outreach [3910] Cmt: [facility] WORKBENCH TEETEE PCSA Prescriptions as of 08/19/2024 - colchicine [...] Encounter Status:Closed by ALEXANDRA BASSETT on 08/19/24 [facility] 07-29-2024 Note HNO ID: [id number] Author: PENELOPE ERVIN RN Service: ? Author Type: Registered Nurse Type: Progress Notes Filed: 07/29/2024 09:02 Note Text: ACM CARLOS RN Reason for review or outreach: Medication Adherence review per request of payer Medication Adherence Review Details: Hypertension and Diabetes FYI / ACTION REQUEST: Patient identified by name and date of Summary/Findings of review: LISINOPRIL TAB 10MG was due for refill on 06/14/24 at [facility] pharmacy METFORMIN TAB 500MG is due for refill on 08/06/24 at [facility] pharmacy Patient Attributed To: QAE Payer: [facility] Action Taken: Data submitted to Payer StudyRoom message to patient Contact made with patient: No, Chart review only. Signature: Penelope Ervin RN [facility] 07-29-2024 History of Present illness Narrative ACM CARLOS RN Reason for review or outreach: Medication Adherence review per request of payer Medication Adherence Review Details: Hypertension and Diabetes FYI / ACTION REQUEST: Patient identified by name and date of Summary/Findings of review: LISINOPRIL TAB 10MG was due for refill on 06/14/24 at [facility] pharmacy METFORMIN TAB 500MG is due for refill on 08/06/24 at [facility] pharmacy Patient Attributed To: QAE Payer: [facility] Action Taken: Data submitted to [employer] message to patient Contact made with patient: No, Chart review only. Signature: Penelope Ervin RN documented in this encounter [facility] 07-29-2024 Note Patient Outreach (TRENA RANGEL) MOLLY HIDALGO ([id number]) 1960 F Date Time Provider Department 07/29/24 [...] was due for refill on 06/14/24 at [facility] pharmacy METFORMIN TAB 500MG is due for refill on 08/06/24 at [facility] pharmacy Patient Attributed To: QAE Payer: [employer] Action Taken: Data submitted to [employer] message to patient Contact made with patient: [...] Assessed Reason for Visit: ACM CARLOS RN [[id number]] Cmt: Medication Adherence Review at request of [...] Other and unspecified alcohol dependence, unspe* 03/15/2023 H - PAST MEDICAL HISTORY OF 08/17/2018 CHEST [...] Encounter Status:Closed by PENELOPE ERVIN on 07/29/24 [facility] 07-18-2024 Note HNO ID: [id number] Author: ALEXANDRA BASSETT MA Service: ? Author Type: Nurseryperson Type: Progress Notes Filed: 07/18/2024 16:21 Note Text: POPULATION HEALTH NAVIGATION OUTREACH Action/FYI Lvm mychart message sent NEEDS MAMMOGRAMS FLIP APPOINTMENT ON 12-03-24 TO [facility] Reason for Outreach Care Gap/HCC or Scheduling Wellness Visits Care Gaps due: Medicare Annual Wellness Visit Breast Cancer Screening Patient Contacted: Unable or unnecessary to reach patient: Flipped existing appointment Patient already scheduled Updated appointment notes Navigation Signature: Alexandra Bassett MA July 18, 2024 12:04 PM [facility] 07-18-2024 History of Present illness Narrative POPULATION HEALTH NAVIGATION OUTREACH Action/[employer] message sent NEEDS MAMMOGRAMS FLIP APPOINTMENT ON 12-03-24 TO [facility] Reason for Outreach Care Gap/HCC or Scheduling Wellness Visits Care Gaps due: Medicare Annual Wellness Visit Breast Cancer Screening Patient Contacted: Unable or unnecessary to reach patient: Flipped existing appointment Patient already scheduled Updated appointment notes Navigation Signature: Alexandra Bassett MA July 18, 2024 12:04 PM documented in this encounter [facility] 07-18-2024 Note Patient Outreach (TRENA RANGEL) MOLLY HIDALGO ([id number]) 1960 F Date Time Provider Department 07/18/24 ALEXANDRA BASSETTV During your visit today, we recorded the following information about you: Alexandra Bassett MA 07/18/2024 4:21 PM Signed POPULATION HEALTH NAVIGATION OUTREACH Action/[employer] message sent NEEDS MAMMOGRAMS FLIP APPOINTMENT ON 12-03-24 TO [facility] Reason for Outreach Care Gap/HCC or Scheduling [...] Visit: Population Health Navigation Outreach [3910] Cmt: [facility] WORKGIRISHPriyanka KINGSLEY PCSA Prescriptions as of 07/18/2024 - colchicine [...] Encounter Status:Closed by ALEXANDRA BASSETT on 07/18/24 [facility] 06-07-2024 Telephone encounter Note Phoned patient left detailed message with results, notes from Jessica Palencia TRANSFER MACHINE OPERATOR, rx sent to [facility] pharmacy on patient voicemail. [facility] 06-07-2024 Miscellaneous Notes Phoned patient left detailed message with results, notes from Jessica Palencia TRANSFER MACHINE OPERATOR, rx sent to [facility] pharmacy on patient voicemail. White count is some elevated as well as her uric acid level. Will also treat her finger swelling with some gout medication to cover possible gout- I have sent to pharmacy. Recheck labs in one month. May also continue antibiotic. The rest of her blood work is in acceptable ranges. Continue all other current medications. Jessica Palencia APRN.INSPECTOR HANDBAG FRAMES documented in this encounter [facility] 06-07-2024 Telephone encounter Note White count is some elevated as well as her uric acid level. Will also treat her finger swelling with some gout medication to cover possible gout- I have sent to pharmacy. Recheck labs in one month. May also continue antibiotic. The rest of her blood work is in acceptable ranges. Continue all other current medications. Jessica Palencia APRN.INSPECTOR HANDBAG FRAMES [facility] 06-06-2024 Telephone encounter Note Patient notified of results. Patient verbalizes understanding. Patient scheduled for 6 month follow up on 12/03/2024 Libertad Coleman RN [facility] 06-06-2024 Miscellaneous Notes Patient notified of results. Patient verbalizes understanding. Patient scheduled for 6 month follow up on 12/03/2024 Libertad Coleman RN Telephoned patient, message left to call office back for update. When patient calls back please assist with scheduling 6 month follow up as well. Trista Espinosa LPN ----- Message from Jessica Palencia APRN.CNP sent at 06/05/2024 2:24 PM EDT ----- Xray shows some mild arthritis. Jessica Palencia APRN.INSPECTOR HANDBAG FRAMES documented in this encounter [facility] 06-05-2024 Telephone encounter Note Telephoned patient, message left to call office back for update. When patient calls back please assist with scheduling 6 month follow up as well. Trista Espinosa LPN [facility] 06-05-2024 Telephone encounter Note ----- Message from Jessica Palencia APRN.KATHLEEN sent at 06/05/2024 2:24 PM EDT ----- Xray shows some mild arthritis. Jessica Palencia APRN.INSPECTOR HANDBAG FRAMES [facility] 06-05-2024 History of Present illness Narrative Radiology [...] PATIENT PRESENTS WITH AN IMPLANTABLE OR ATTACHED VEGETABLE LOADER MACHINE OPERATOR: No RADIOLOGY DEPARTMENT: General X-ray: Exam(s) Completed: Upper Extremity X-Ray(s): Fingers/Thumb, right thumb PERIPHERAL IV DATA: Not applicable SIGNED BY: RT Sang(R) June 05, 2024 1:44 PM documented in this encounter [facility] 06-05-2024 Note HNO ID: [id number] Author: JYOTHI VENTURA RT(R) Service: ? Author Type: Hand I Blocker Type: Progress Notes Filed: 06/05/2024 13:51 Note [...] PATIENT PRESENTS WITH AN IMPLANTABLE OR ATTACHED VEGETABLE LOADER MACHINE OPERATOR: No RADIOLOGY DEPARTMENT: General X-ray: Exam(s) Completed: Upper Extremity X-Ray(s): Fingers/Thumb, right thumb PERIPHERAL IV DATA: Not applicable SIGNED BY: RT Sang(Jeremy) June 05, 2024 1:44 PM [facility] 06-05-2024 Note HNO ID: [id number] Author: JESSICA PALENCIA APRN.INSPECTOR HANDBAG FRAMES Service: ? Author Type: Nurse Practitioner Type: [...] liver 10/19/2023 Fibromyalgia History of alcohol dependence ([facility]) History of drug abuse ([facility]) marijuana, cocaine, acid, methamphetamines, speed. Sober since age 20s Hypertension Iron deficiency anemia Lumbar stenosis with neurogenic claudication Mononucleosis Nephrolithiasis PAD (peripheral artery disease) ([facility]) Prediabetes Pure hypercholesterolemia 06/09/2005 Tobacco use ALLERGIES [...] No history of dysuria, frequency or incontinence TECHNICAL SERVICE REPRESENTATIVE: Negative for abnormal vaginal bleeding, abnormal vaginal discharge MUSCULOSKELETAL: See HPI SKIN: Negative for lesions, rash, and itching PSYCH: Negative for sleep disturbance, mood (more content not included)... [facility] 06-05-2024 History of Present illness Narrative 06/05/2024 [...] liver 10/19/2023 Fibromyalgia History of alcohol dependence ([facility]) History of drug abuse ([facility]) marijuana, cocaine, acid, methamphetamines, speed. Sober since age 20s Hypertension Iron deficiency anemia Lumbar stenosis with neurogenic claudication Mononucleosis Nephrolithiasis PAD (peripheral artery disease) ([facility]) Prediabetes Pure hypercholesterolemia 06/09/2005 Tobacco use ALLERGIES [...] No history of dysuria, frequency or incontinence TECHNICAL SERVICE REPRESENTATIVE: Negative for abnormal vaginal bleeding, abnormal vaginal [...] follow-up with cardiology as recommended Jessica Palencia APRN.CNP Prescription instructions reviewed with patient as applicable. Patient advised if symptoms do not improve or if symptoms worsen sooner, to contact their primary care physician. Potential red flag symptoms discussed with the patient. Reviewed appropriate action plan to take if red flag symptoms occur. Patient agreeable to treatment plan. documented in this encounter [facility] 05-15-2024 History of Present illness Narrative POPULATION HEALTH NAVIGATION OUTREACH Action/ LVM MYCHART MESSAGE SENT MAMMOGRAMS after 06-10-24 HCC CLOSURE Reason for Outreach Care Gap/HCC or Scheduling Wellness Visits Care Gaps due: Breast Cancer Screening Patient Contacted: Unable or unnecessary to reach patient: Left message [employer] message sent Navigation Signature: Alexandra Bassett MA May 15, 2024 9:39 AM documented in this encounter [facility] 05-08-2024 Telephone encounter Note Prescription Refill Information [...] Tete Dinero May 08, 2024 1:12 PM [facility] 05-08-2024 Miscellaneous Notes Prescription Refill Information The [...] 2024 1:12 PM documented in this encounter [facility] 04-11-2024 Telephone encounter Note FOLLOW UP ENDOSCOPY - RESULTS AND RECOMMENDATIONS NAME: Molly Hidalgo [facility] NO.: [id number] : 1960 DATE: April 11, 2024 PRIMARY [...] the patient and to the appropriate providers [facility] Work Phone: 04-11-2024 Miscellaneous Notes FOLLOW UP ENDOSCOPY - RESULTS AND RECOMMENDATIONS NAME: Molly Hidalgo [facility] NO.: [id number] : 1960 DATE: April 11, 2024 PRIMARY [...] the appropriate providers documented in this encounter [facility] 04-09-2024 Nurse Note Gentle tactile stimuli to awaken patient, arousable and answers questions but is not ready to sit up for snack yet. Will continue to sleep on left side, oxygen on at 2L per NC. [facility] 04-09-2024 Nurse Note Gentle tactile stimuli to [...] on left side. documented in this encounter [facility] 04-09-2024 Note Formatting of this n ote might be different from the original. The patient received a copy of Colonoscopy discharge instructions that contain information for how to contact the physician who performed the procedure and when to seek medical care. [facility] 04-09-2024 Miscellaneous Notes The patient received a copy of Colonoscopy discharge instructions that contain information for how to contact the physician who performed the procedure and when to seek medical care. documented in this encounter [facility] 04-09-2024 Nurse Note Oxygen applied at 2L per NC for pulse ox readings of 92% on room air while sleeping. [facility] 04-09-2024 Nurse Note Patient received in phase II via cart in left lateral position, eyes closed, responds to verbal stimuli, skin warm and dry, respirations regular and unlabored, abdomen soft and non distended, no grimacing with light palpation of abdomen. Resting comfortably on left side. [facility] 04-09-2024 Attending History and physical note UPDATED [...] can be found in the attached. SIGNATURE: Roberth Wills MD PATIENT NAME: Molly Hidalgo DATE: April 09, 2024 TIME: 9:04 AM Source Note - Roberth Wills MD - 04/09/2024 9:00 AM EDT [...] comments: Reports 2.5 cigarettes daily as of [id number] Substance Use Topics Alcohol use: No Comment: [...] she had talked to Alisson Chaparro our patient registration supervisor and noted that she was supposed to [...] me after the testing has been completed. Roberth Wills MD [facility] Work Phone: 04-09-2024 History and physical note [...] comments: Reports 2.5 cigarettes daily as of [id number] Substance Use Topics Alcohol use: No Comment: [...] entered by the nurse and reviewed by nc Nursing Notes: Keeley Fountain RN 11/24/2023 1:04 [...] she had talked to Alisson Chaparro our patient registration supervisor and noted that she was supposed to [...] me after the testing has been completed. Roberth Wills MD T [facility] 04-09-2024 History and physical note UPDATED PROCEDURAL [...] can be found in the attached. SIGNATURE: Roberth Wills MD PATIENT NAME: Molly Hidalgo DATE: April 09, 2024 TIME: 9:04 AM Source Note - Roberth Wills MD - 04/09/2024 9:00 AM EDT [...] claudication Mononucleosis Nephrolithiasis PAD (peripheral artery disease) ([facility]) Prediabetes Pure hypercholesterolemia 06/09/2005 Tobacco use PAST [...] comments: Reports 2.5 cigarettes daily as of [id number] Substance Use Topics Alcohol use: No Comment: [...] she had talked to Alisson Chaparro our patient registration supervisor and noted that she was supposed to [...] me after the testing has been completed. Roberth Wills MD HISTORY AND PHYSICAL Molly Wrightall 1960 REFERRING [...] comments: Reports 2.5 cigarettes daily as of [id number] Substance Use Topics Alcohol use: No Comment: [...] entered by the nurse and reviewed by nc Nursing Notes: Keeley Fountain RN 11/24/2023 1:04 [...] she had talked to Alisson Chaparro our patient registration supervisor and noted that she was supposed to [...] me after the testing has been completed. Roberth Wills MD documented in this encounter [facility] 03-20-2024 Telephone encounter Note Prescription Refill Information [...] Umaña LPN March 20, 2024 10:55 AM [facility] 03-20-2024 Miscellaneous Notes Prescription Refill Information The [...] 2024 10:55 AM documented in this encounter [facility] 03-13-2024 Telephone encounter Note Prescription Refill Information [...] tablet by mouth daily at bedtime. Tete Dinero March 13, 2024 4:21 PM [facility] 03-13-2024 Miscellaneous Notes Prescription Refill Information The [...] tablet by mouth daily at bedtime. Tete Dinero March 13, 2024 4:21 PM documented in this encounter [facility] 03-11-2024 Telephone encounter Note Patient was seen on March 11, [address] Major. The following test(s) were ordered: Stress test Please call patient to schedule testing. Thank you! Fernando Staton MA [facility] 03-11-2024 Miscellaneous Notes Patient was seen on March 11, [address] Major. The following test(s) were ordered: Stress test Please call patient to schedule testing. Thank you! Fernando Staton MA documented in this encounter [facility] 03-11-2024 Note HNO ID: [id number] Author: LORENZA MAJOR, DO Service: ? Author Type: Physician Type: Progress Notes Filed: 03/11/2024 14:04 Note Text: [facility] SECTION OF REGIONAL CARDIOLOGY [facility] OUTPATIENT VISIT DATE March 11, 2024 PRIMARY CARE PHYSICIAN: Negrito Wilburn [address] [place] [address] HISTORY OF PRESENT ILLNESS: Ms. 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 She is a current smoker, social drinker. [...] Diagnosis Date Abnor (more content not included)... [facility] 03-11-2024 History of Present illness Narrative Images from the original note were not included. [facility] SECTION OF REGIONAL CARDIOLOGY [facility] OUTPATIENT VISIT DATE March 11, 2024 PRIMARY CARE PHYSICIAN: Negrito Wilburn [address] [place] [address] HISTORY OF PRESENT ILLNESS: Ms. 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 She is a current smoker, social drinker. [...] alcohol dependence (HCC) History of drug abuse ([facility]) marijuana, cocaine, acid, methamphetamines, speed. Sober since age 19s Hypertension Iron deficiency anemia Lumbar stenosis with neurogenic claudication Mononucleosis Nephrolithiasis PAD (peripheral artery disease) ([facility]) Prediabetes Pure hypercholesterolemia 06/09/2005 Tobacco use PAST [...] comments: Reports 2.5 cigarettes daily as of [id number] Vaping Use Vaping Use: Never used Substance [...] daily for 90 days. Lorenza Major DO, [facility], [facility] Automated Teller Manager, [facility] Ambulatory Cardiology Automated Teller Manager, [facility] Cardiac Rehabilitation Automated Teller Manager, [facility] Cardiac Rehabilitation Automated Teller Manager, [facility] Congestive Heart Failure [facility] Automated Teller Manager, [facility] Ambulatory Cardiology Clinical Senior Electrical Engineer Profressor of Medicine, [facility] of Medicine - [facility] Staff Desktop Publishing Specialist, [employer] Gissel Rosario Department of Cardiovascular Medicine/Heart and Vascular [place], [facility] Please note: This note has been produced using speech recognition software and may contain errors related to that system including gladys, punctuation, spelling, words, gender and phrases that may be inappropriate. documented in this encounter [facility] 02-21-2024 Telephone encounter Note TC to patient who verbalized understanding and will continue Metformin as prescribed. DEANNA Cortes [facility] 02-21-2024 Miscellaneous Notes TC to patient who [...] White LPN ----- Message from Jessica Palencia APRN.INSPECTOR HANDBAG FRAMES sent at 02/21/2024 8:09 AM EDT ----- Kidney function has returned to normal range. Continue to hold the Metformin. Jessica Palencia APRN.KATHLEEN documented in this encounter [facility] 02-21-2024 Telephone encounter Note Sorry My error. She should continue it. I read my note wrong. Jessica Borrero [facility] 02-21-2024 Telephone encounter Note Results below given. Pt reports she was of Metformin before her apt on 12-11-23. At that apt pt reports she was told to go back on Metformin and has been on since 12-11-23. Message below tells her to continue to hold Metformin. Pt has been taking this. Please review and advise pt. Génesis White LPN [facility] 02-21-2024 Telephone encounter Note ----- Message from Jessica Palencia APRN.INSPECTOR HANDBAG FRAMES sent at 02/21/2024 8:09 AM EDT ----- Kidney function has returned to normal range. Continue to hold the Metformin. Jessica Palencia APRN.INSPECTOR HANDBAG FRAMES [facility] 12-11-2023 Instructions Jessica Palencia APRN.KATHLEEN - 12/11/2023 2:34 PM EDT Come back in January and get kidney function checked Eat low salt, stay hydrated with water. Avoid NSAID products documented in this encounter [facility] 12-11-2023 History of Present illness Narrative 12/07/2023 [...] liver 10/19/2023 Fibromyalgia History of alcohol dependence ([facility]) History of drug abuse ([facility]) marijuana, cocaine, acid, methamphetamines, speed. Sober since age 20s Hypertension Iron deficiency anemia Lumbar stenosis with neurogenic claudication Mononucleosis Nephrolithiasis PAD (peripheral artery disease) ([facility]) Prediabetes Pure hypercholesterolemia 06/09/2005 Tobacco use ALLERGIES [...] comments: Reports 2.5 cigarettes daily as of [id number] Vaping Use Vaping Use: Never used Substance [...] weeks - BASIC METABOLIC PNL Jessica Palencia APRN.KATHLEEN Prescription instructions reviewed with [...] 4 - Moderate documented in this encounter [facility] 11-24-2023 Telephone encounter Note 01/09/2024 colon asc [facility] 11-24-2023 Miscellaneous Notes 01/09/2024 colon asc documented in this encounter [facility] 11-24-2023 Instructions Roberth Wills MD - 11/24/2023 1:32 PM EST [...] If you do not have a responsible pick up driver (family member or friend) with you [...] non-dairy creamer) Carbonated and non-carbonated soft drinks Mansih-Aid or other fruit flavored drinks Strained fruit [...] If you do not have a responsible pick up driver (family member or friend) with you to take you home, your exam cannot be done with sedation and will be cancelled. Please bring a list of all of your current medications, including any Wzca-cle-Wfbhwly medications with you. Medications If you take [...] exam. 2 08/2019 documented in this encounter [facility] 11-24-2023 Nurse Note REVIEW OF SYSTEMS: General: [...] Keeley Fountain RN documented in this encounter [facility] 11-24-2023 History of Present illness Narrative HISTORY AND PHYSICAL Molly Madison Rocky 1960 [...] RMVL TUBE OVARY Hysterectomy, SEKOU. precancerous cells Current Outpatient Medications [...] comments: Reports 2.5 cigarettes daily as of [id number] Substance Use Topics Alcohol use: No Comment: [...] she had talked to Alisson Chaparro our patient registration supervisor and noted that she was supposed to [...] me after the testing has been completed. Roberth Wills MD documented in this encounter [facility] 11-19-2023 Miscellaneous Notes I called patient back as she had called back and had more questions. Discussed that her urine culture showed an infection and that she should filler picker antibiotics. All questions answered. Patient voiced understanding of plan. Left VM instructing patient to return call to receive results. Judi Pickard MA Your urine culture did show an infection. Keflex was sent to your pharmacy. documented in this encounter [facility] 11-19-2023 Miscellaneous Notes Patient calling back to speak with the provider from the [facility] . Patient denies any new or worsening symptoms of which a provider is not aware:Yes. Patient returning the call from the [facility], advised the message in My Chart from 11/19/2023 at 8:04 pm. Patient states she still has questions and requesting a call back. documented in this encounter [facility] 11-17-2023 History of Present illness Narrative Patient [...] 24 HR 2. Stress incontinence - ICD9: [id number], ICD10: N39.3 Reports 5 mg oxybutynin was not effective but taking 2 pills were. - OXYBUTYNIN CHLORIDE ER 10 MG TABLET,EXTENDED RELEASE 24 HR Keep follow-up as scheduled with urology. FYI to primary care. Marc Vines MD documented in this encounter [facility] 11-15-2023 Miscellaneous Notes Pt called requesting referral for Urologist Dr. Josee Maynard and supporting information be faxed to: [phone]. Done. Génesis White LPN documented in this encounter [facility] 11-10-2023 Miscellaneous Notes Patient calls and states that Dr. Maynard is in patient's insurance network. Office notes, demographics, and referral faxed to Dr. Maynard's office. Libertad Coleman RN Pt notified and voiced understanding. Deisy [...] Helen Taylor APRN.KATHLEEN documented in this encounter [facility] 11-09-2023 Instructions Helen Taylor APRN.CNP - 11/09/2023 [...] up as needed. documented in this encounter [facility] 11-09-2023 History of Present illness Narrative This [...] claudication Mononucleosis Nephrolithiasis PAD (peripheral artery disease) ([facility]) Prediabetes Pure hypercholesterolemia 06/09/2005 Tobacco use PAST [...] AEROSOL INHALER 3. Stress incontinence - ICD9: [id number], ICD10: N39.3 - Recommend consult with urology. - CONSULT TO UROLOGY Follow-up pending test results or sooner as needed. Discussed treatment plan and patient voices understanding. Patient's questions answered appropriately. Medications and potential side effects were discussed and patient voices understanding. Helen Taylor APRN.INSPECTOR HANDBAG FRAMES This note was partially generated using [employer] voice recognition system. Note was reviewed for accuracy. There may be minor misspellings or grammar miscues with [employer] voice recognition. documented in this encounter [facility] 11-09-2023 Miscellaneous Notes Please see note below [...] TRAVEL: denies Protocols used: Cough - Acute [id number] Patient calling she started taking the Oxybutynin after her appt on 10/27, patient said medication is not helping the urinary incontinence at all. Patient is asking if the dose needs increased or changed to something else? Patient uses [facility] for her pharmacy. Please advise documented in this encounter [facility] 10-30-2023 Miscellaneous Notes Pt notified of results via [employer] [place]. Deisy Duron Ma Can you please call [...] Helen Taylor APRN.KATHLEEN documented in this encounter [facility] 10-27-2023 Instructions Helen Taylor APRN.CNP - 10/27/2023 1:06 PM EST Urine testing pending Start Ditropan XL 5 mg daily. Work on setting a bathroom schedule Try to avoid caffeine, stay well hydrate May try pelvic floor exercises. May consider follow up with TECHNICAL SERVICE REPRESENTATIVE if needed. Eat a low sodium diet Get repeat lab in 1 month Follow up pending test results. documented in this encounter [facility] 10-27-2023 History of Present illness Narrative This [...] alcohol dependence (HCC) History of drug abuse ([facility]) marijuana, cocaine, acid, methamphetamines, speed. Sober since age 19s Hypertension Iron deficiency anemia Lumbar stenosis with neurogenic claudication Mononucleosis Nephrolithiasis PAD (peripheral artery disease) ([facility]) Prediabetes Pure hypercholesterolemia 06/09/2005 Tobacco use PAST [...] intact.. ASSESSMENT/PLAN: 1. Stress incontinence - ICD9: [id number], ICD10: N39.3 (primary diagnosis) - Urinalysis will [...] discussed and patient voices understanding. Helen Taylor APRN.INSPECTOR HANDBAG FRAMES This note was partially generated using [employer] voice recognition system. Note was reviewed for accuracy. There may be minor misspellings or grammar miscues with [employer] voice recognition. documented in this encounter [facility] 10-27-2023 Miscellaneous Notes Patient telephoned and scheduled with Helen Willis TRANSFER MACHINE OPERATOR at 1pm. Trista Espinosa LPN Will need [...] calling: self Call patient at: on cell [phone] (home) [phone] (cell) Was an appointment scheduled: No Closing statement: Symptom Call: Thank you for calling [facility], your call is very important. A nurse will call in approximately 2-4 hours during business hours. If this is an emergency, please contact 911. Debi Caicedo documented in this encounter [facility] 10-19-2023 Miscellaneous Notes Patient notified of results and recommend cardiology consult. She does not have a coronary stent. She has never seen a range manager or had any heart procedures done. She [...] Perez APRN.CNP October 19, 2023 1:02 PM documented in this encounter [facility] 10-19-2023 Miscellaneous Notes Called and left a [...] at this time. documented in this encounter [facility] 08-28-2023 Miscellaneous Notes K[place] 03/15/23 NOV 09/19/23 [...] patient. Nneka Dinero documented in this encounter [facility] 08-07-2023 History of Present illness Narrative Subjective [...] Discussed expected course of illness Alexandra Morales APRN.CNP documented in this encounter [facility] 08-07-2023 Instructions Alexandra Morales APRN.CNP - 08/07/2023 [...] Discussed expected course of illness Alexandra Morales APRN.CNP documented in this encounter [facility] 06-13-2023 Miscellaneous Notes Pt notified of results via [employer]. Deisy Duron Ma ----- Message from Negrito Wilburn MD sent at 06/13/2023 12:05 PM EDT ----- Negative mammogram. Repeat in 1 year. documented in this encounter [facility] 06-13-2023 Miscellaneous Notes June 13, 2023 PID: [id number] Molly Hidalgo [address] [id number] Dear Ms. Hidalgo, We are pleased to [...] report will be kept on file at [facility] as part of your permanent medical record and are available for your continuing care. Thank you for allowing us to help in meeting your health care needs. Sincerely, Dr. Lopez Interpreting Radiologist [facility] (Normal over 40) documented in this encounter [facility] 06-13-2023 History of Present illness Narrative Radiology [...] 2023 8:26 AM documented in this encounter [facility] 03-06-2023 Miscellaneous Notes MC message sent. ----- Message from Negrito Wilburn MD sent at 03/06/2023 11:19 AM EDT ----- Stress testing is normal. Negative for signs of blockage or heart strain. documented in this encounter [facility] 03-06-2023 History of Present illness Narrative RADIOLOGY [...] Discontinued PROCEDURE TYPE: NM Stress: 12.5 mCi [id number]-Tdanixz was administered IV for Rest Imaging at 07:59 by PRAVEEN Masterson. 31.3 mCi Wc97h-Yotptfz was administered IV for Stress Imaging at 09:07 by Ashley Cerrato. ADMINISTRATION TIME: PATIENT DISCHARGED TO: Ambulatory patient, left [place] department area. A Diagnostic radioactive procedure has taken place, with no further precautions necessary other than routine body substance precautions. More information regarding radiation safety can be found using this link: [email or web address] SIGNATURE: RT Aleja(Jeremy) PATIENT NAME: Molly Hidalgo DATE: March 06, 2023 TIME: 10:15 AM PAGER/CONTACT #: documented in this encounter [facility] 02-22-2023 Miscellaneous Notes message sent. Meg Baldwin MA ----- Message from Negrito Wilburn MD sent at 02/22/2023 8:02 AM EDT ----- Repeat potassium level normal. Will recheck at future OV. documented in this encounter [facility] 02-20-2023 Miscellaneous Notes Spoke with pt and [...] at future OV. documented in this encounter [facility] 02-17-2023 Miscellaneous Notes Pt called and is [...] testing as ordered. documented in this encounter [facility] 02-16-2023 History of Present illness Narrative Radiology [...] 2023 9:18 AM documented in this encounter [facility] 02-16-2023 History of Present illness Narrative Chief [...] Abs Lymph 1.00 - 4.00 k/uL 2.79 Green[place]rier% % 8.6 Abs [place] <0.87 k/uL 0.78 Eosin% % 3.7 Abs [...] which included preparing to see the patient, [id number]-[id number] patient care, completing clinical documentation, obtaining and/or reviewing separately obtained history, performing a medically appropriate examination, counseling and educating the patient/family/caregiver, ordering medications, tests, or procedures, and communicating results to the patient/family/caregiver. Negrito Wilburn MD documented in this encounter [facility] 09-08-2022 Miscellaneous Notes KAITLYN 8/29/22 No future visit scheduled. Patient has been [...] advise. Tete Wolfe documented in this encounter [facility] 06-20-2022 Miscellaneous Notes Letter mailed to pt home of results. Deisy Duron MA ----- Message from Negrito Wilburn MD sent at 06/19/2022 1:05 PM EDT ----- Cholesterol is much better on her current regimen. Other labs are normal. No changes to regimen. documented in this encounter [facility] 06-03-2022 Miscellaneous Notes Called and left a detailed voicemail notifying patient of providers message. Hospital phone number was left in case patient had any questions. Bing Bryan RN Her vascular study has already been addressed and she was started on trental so I'm unsure as to what other testing she is referring to. Jessica Palencia APRN.KATHLEEN Pt called in ask if someone could look at her Vascular lab study and call her back. Please call and advise. documented in this encounter [facility] 05-19-2022 Miscellaneous Notes Call to pt. LM on VM (identifiable) that Rx has been sent into [facility]. If questions to contact the office. [...] Results placed on provider's desk. Thank you. Oh telephoned. He said it takes about 1-2 weeks [...] as well for further recommendations. Oh Smith TRANSFER MACHINE OPERATOR from [facility] calling with findings abnormal PAD testing left leg significant decrease 0.49 pain with ambulation. Right leg was normal. Results will be faxed to PCP office. documented in this encounter [facility] 05-18-2022 History of Present illness Narrative Molly [...] entered by the nurse and reviewed by nc Nursing Notes: [facility] 05/18/2022 1:17 PM [...] scheduled for left stereotactic breast biopsy at [facility] as per her wishes. Medical Decision Making: Problems: Moderate: New problem with uncertain prognosis Data: Unique test result(s) reviewed: 1 Risk: Low: Low risk from testing/treatment Medical Decision Making Level: 3 - Low Trudy Greco MD documented in this encounter [facility] 05-18-2022 Nurse Note REVIEW OF SYSTEMS: General: [...] 10/22/2018 [facility] documented in this encounter [facility] 05-16-2022 History of Present illness Narrative 05/16/2022 [...] artery disease Fibromyalgia History of alcohol dependence ([facility]) History of drug abuse ([facility]) marijuana, cocaine, acid, methamphetamines, speed. Sober since age 20s Hypertension Iron deficiency anemia Lumbar stenosis with neurogenic claudication Mononucleosis Nephrolithiasis PAD (peripheral artery disease) ([facility]) Prediabetes Pure hypercholesterolemia 06/09/2005 Tobacco use ALLERGIES [...] LAB - follow-up pending testing Jessica Palencia APRN.CNP Prescription instructions reviewed with [...] which included preparing to see the patient, [id number]-fw-[id number] patient care, completing clinical documentation, obtaining and/or reviewing separately obtained history, performing a medically appropriate examination, counseling and educating the patient/family/caregiver, and ordering medications, tests, or procedures. documented in this encounter [facility] 05-04-2022 Miscellaneous Notes Spoke with patient. Given [...] Jessica Palencia APRN.CNP documented in this encounter [facility] 03-29-2022 Miscellaneous Notes Pt called and is notified of providers results and instructions. Pt voices understanding. Bing Bryan, RN Repeat labs continues to show mild [...] like help quitting. documented in this encounter [facility] 03-15-2022 History of Present illness Narrative Opened in error Jessica Palencia APRN.CNP documented in this encounter [facility] 03-14-2022 Miscellaneous Notes Patient calls in and [...] Jessica Palencia APRN.CNP documented in this encounter [facility] 03-14-2022 Miscellaneous Notes March 14, 2022 PID: [id number] Molly Smiley Rocky [address] [address] Dear Ms. Hidalgo, Your recent breast imaging [...] who ordered/prescribed your screening mammogram: Please call [phone] or EXT: [phone] to schedule an appointment for your additional [...] and reports are kept on file at [facility] as part of your permanent medical record, and are available for your continuing care. Thank you for allowing us to help in meeting your health care needs. Sincerely, Dr. Balderrama Interpreting Radiologist [facility] (Additional imaging) documented in this encounter [facility] 03-14-2022 History of Present illness Narrative Radiology [...] IV DATA: Not applicable SIGNED BY: Margie Son March 14, 2022 1:11 PM documented in this encounter [facility] 03-10-2022 Miscellaneous Notes Patient notified and voiced [...] like her to get CBC rechecked. Bing Bryan RN A1C improving gradually, still in prediabetic range. Work on low carb diet, regular exercise Cholesterol is up compared to 1 year ago. Has she been taking her Pravastatin daily as prescribed? Normal iron levels. WBC elevated. This may be related to her epidural steroid injections. Recommend repeat CBC with diff for further evaluation. documented in this encounter [facility] 03-07-2022 Miscellaneous Notes Reviewed. documented in this encounter [facility] 03-07-2022 History of Present illness Narrative Chief [...] Does not want to drive outside of [place] so will contact [facility]. Still smoking 7-8 cigarettes per day. Not [...] No history of dysuria, frequency or incontinence TECHNICAL SERVICE REPRESENTATIVE: Negative for abnormal vaginal bleeding, abnormal vaginal [...] diet of 1000 mg/day for under 50, 3164-0820 mg/day for 50+ - Mammogram ordered - [...] vaccine - ICD9: V04.89, ICD10: Z23 - PFIZER-BIONTECH COVID-19 VACCINE, AGE 12+ YR ([facility]) Negrito Wilburn MD documented in this encounter [facility] 08-17-2016 History of Past i llness Narrative [...] of this encounter (statuses as of 04/24/2023) [facility] History of Past illness Narrative* Problem Noted [...] of this encounter (statuses as of 06/14/2023) [facility] Narrative* Problem Noted [...] of this encounter (statuses as of 06/15/2023) [facility] Narrative* Problem Noted [...] of this encounter (statuses as of 07/23/2023) [facility] Narrative* Problem Noted [...] of this encounter (statuses as of 07/23/2023) [facility] N[facility]ative* Problem Noted [...] of this encounter (statuses as of 08/08/2023) [facility] Narrative* Problem Noted [...] of this encounter (statuses as of 08/29/2023) [facility] Narrative* Problem Noted [...] of this encounter (statuses as of 10/20/2023) [facility] Narrative* Problem Noted [...] of this encounter (statuses as of 10/20/2023) [facility] Narrative* Problem Noted [...] Syn; hx addictive behaviors with narcotics. DPOA Nlie fills and often pays for pt's scripts. PMH - PAST MEDICAL HISTORY OF 08/17/2018 Overview: Kidney Stones History of alcohol dependence 03/15/2023 documented as of this encounter (statuses as of 10/27/2023) [facility] Narrative* Problem Noted [...] of this encounter (statuses as of 10/27/2023) [facility] Narrative* Problem Noted [...] of this encounter (statuses as of 10/30/2023) [facility] Narrative* Problem Noted [...] of this encounter (statuses as of 11/09/2023) [facility] N[facility]ative* Problem Noted [...] of this encounter (statuses as of 11/09/2023) [facility] N[facility]ative* Problem Noted [...] of this encounter (statuses as of 11/10/2023) [facility] N[facility]ative* Problem Noted [...] of this encounter (statuses as of 11/15/2023) [facility] N[facility]* Problem Noted [...] of this encounter (statuses as of 11/17/2023) [facility] N[facility]* Problem Noted [...] of this encounter (statuses as of 11/19/2023) [facility] N[facility]* Problem Noted [...] of this encounter (statuses as of 11/24/2023) [facility] N[facility]* Problem Noted [...] of this encounter (statuses as of 12/01/2023) [facility] N[facility]* Problem Noted [...] of this encounter (statuses as of 12/11/2023) [facility] N[facility]* Problem Noted [...] of this encounter (statuses as of 12/11/2023) [facility] N[facility]ative* Problem Noted [...] of this encounter (statuses as of 12/12/2023) [facility] Narrative* Problem Noted [...] of this encounter (statuses as of 03/07/2022) [facility] N[facility]* Problem Noted [...] of this encounter (statuses as of 03/08/2022) [facility]* Problem Noted [...] of this encounter (statuses as of 03/10/2022) [facility]* Problem Noted [...] of this encounter (statuses as of 03/14/2022) [facility]* Problem Noted [...] of this encounter (statuses as of 03/15/2022) [facility] N[facility]* Problem Noted [...] of this encounter (statuses as of 03/15/2022) [facility] N[facility]* Problem Noted [...] of this encounter (statuses as of 03/16/2022) [facility]* Problem Noted [...] of this encounter (statuses as of 03/29/2022) [facility] Narrative* Problem Noted [...] of this encounter (statuses as of 05/16/2022) [facility] History of Past illness Narrative* Problem Noted [...] of this encounter (statuses as of 05/19/2022) [facility] History of Past illness Narrative* Problem Noted [...] of this encounter (statuses as of 05/21/2022) [facility] History of Past illness Narrative* Problem Noted [...] of this encounter (statuses as of 06/03/2022) [facility] History of Past illness Narrative* Problem Noted [...] of this encounter (statuses as of 06/20/2022) [facility] History of Past illness Narrative* Problem Noted [...] of this encounter (statuses as of 06/22/2022) [facility] of Past illness Narrative* Problem Noted [...] of this encounter (statuses as of 09/09/2022) [facility] of Past illness Narrative* Problem Noted [...] of this encounter (statuses as of 02/16/2023) [facility] of Past illness Narrative* Problem Noted [...] of this encounter (statuses as of 02/17/2023) [facility] of Past illness Narrative* Problem Noted [...] of this encounter (statuses as of 02/20/2023) [facility] History of Past illness Narrative* Problem Noted [...] of this encounter (statuses as of 02/22/2023) [facility] of Past illness Narrative* Problem Noted [...] of this encounter (statuses as of 03/06/2023) [facility] [place] [facility] Diagnosis Annual physical exam- Primary Routine [...] for COVID-19 vaccine [facility] Diagnosis Leukocytosis, unspecified type- Primary Hyperlipidemia, mixed Mixed hyperlipidemia [facility] this [facility] [place] [facility]* Diagnosis Abnormal mammogram- Primary Abnormal mammogram, unspecified [facility] Diagnosis Screening mammogram for breast cancer [facility] Diagnosis Leukocytosis, unspecified type- [facility] Decreased pedal pulses- Primary Other symptoms involving cardiovascular system [facility] PAD (peripheral artery disease) ([facility] Primary Peripheral vascular disease, unspecified documented [facility] this [facility] [place] [facility]* Diagnosis Calcification of left breast on mammography- Primary [facility] Diagnosis Abnormal mammogram- Primary Abnormal mammogram, unspecified [facility] Diagnosis Recurrent major depressive disorder, in partial remission (HCC) Fibromyalgia Mylagia and myositis, unspecified documented in this [facility] [place] noteNo assessment information availableWCleveland Clinic [facility] Work Phone: Evaluation note* Diagnosis Chest pain, unspecified type- Primary Primary hypertension Unspecified essential hypertension Hyperlipidemia, mixed Mixed hyperlipidemia Tobacco use disorder Abnormal EKG Nonspecific abnormal electrocardiogram (ECG) (EKG) [facility] Diagnosis Hyperkalemia- Primary Hyperpotassemia documented in this encounter [facility] note* Diagnosis Encounter for screening mammogram for breast cancer documented in this encounter [facility] note* Diagnosis Encounter for screening mammogram for breast cancer documented in this encounter [facility] note* Diagnosis Chest pain, unspecified type documented in this encounter [facility] note* Diagnosis Upper respiratory tract infection, unspecified type- Primary documented in this encounter [facility] note* Diagnosis Essential hypertension Unspecified essential hypertension Gastroesophageal reflux disease, unspecified whether esophagitis present documented in this encounter [facility] note* Diagnosis Tobacco abuse- Primary Tobacco use disorder Coronary artery calcification seen on CAT scan Coronary atherosclerosis of unspecified type of vessel, [place] or graft Encounter for screening for lung cancer documented in this encounter [facility] note* Diagnosis Stress incontinence- Primary Female stress incontinence PROSPER (acute kidney injury) (HCC) Acute kidney failure, unspecified documented in this encounter [facility] note* Diagnosis Sore throat- Primary Acute pharyngitis Chronic obstructive pulmonary disease, unspecified COPD type (HCC) Stress incontinence Female stress incontinence documented in this encounter [facility] note* Diagnosis Urinary frequency- Primary Stress incontinence Female stress incontinence documented in this encounter [facility] note* Diagnosis Tubulovillous adenoma- Primary Benign neoplasm of unspecified site Screening for colon cancer Special screening for malignant neoplasms, colon documented in this encounter [facility] note* Diagnosis Chronic obstructive pulmonary disease, unspecified COPD type (HCC) documented in this encounter [facility] note* Diagnosis Essential hypertension- Primary Unspecified essential hypertension Prediabetes Other abnormal glucose Hyperlipidemia, mixed Mixed hyperlipidemia Gastroesophageal reflux disease, unspecified whether esophagitis present Tobacco use disorder Recurrent major depressive disorder, in partial remission (HCC) Lumbar stenosis with neurogenic claudication Spinal stenosis, lumbar region, with neurogenic claudication PROSPER (acute kidney injury) (HCC) Acute kidney failure, unspecified documented in this encounter [facility] note* Diagnosis Urinary frequency Stress incontinence Female stress incontinence documented in this encounter [facility] note* Diagnosis Coronary artery calcification seen on CAT scan- Primary Coronary atherosclerosis of unspecified type of vessel, [place] or graft GILL (dyspnea on exertion) Other dyspnea and respiratory abnormality Abnormal ECG Nonspecific abnormal electrocardiogram (ECG) (EKG) Primary hypertension Unspecified essential hypertension Hyperlipidemia, mixed Mixed hyperlipidemia [facility] this [facility] [place] [facility]* Diagnosis Recurrent major depressive disorder, in partial remission (HCC) Hyperlipidemia, mixed Mixed hyperlipidemia documented in this encounter [facility] note* Diagnosis Recurrent major depressive disorder, in partial remission (HCC) [facility] [place] [facility]* Diagnosis Tubulovillous adenoma- Primary Benign neoplasm of unspecified site Screening for colon cancer Special screening for malignant neoplasms, colon documented in this encounter [facility] note* Diagnosis Encounter to establish care- Primary [...] abnormal glucose documented in this encounter [facility] note* Diagnosis Encounter to establish care- Primary [...] Coronary atherosclerosis of unspecified type of vessel, [place] or graft Pain of right thumb Pain in limb [facility] [place] [facility]* Diagnosis Encounter to establish care- Primary [...] Pain in limb [facility] [place] [facility]* Diagnosis Encounter to establish care- Primary [...] pain, unspecified type [facility] [place] [facility]* Diagnosis Encounter to establish care- Primary [...] in limb documented in this encounter [facility] note* Diagnosis Encounter to establish care- Primary [...] remission (HCC) documented in this encounter [facility] note* Diagnosis Encounter to establish care- Primary [...] Mixed hyperlipidemia documented in this encounter [facility] note* Diagnosis Encounter to establish care- Primary [...] Coronary atherosclerosis of unspecified type of vessel, [place] or graft Chronic obstructive pulmonary disease, unspecified COPD type (HCC) Prediabetes Other abnormal glucose [facility] [place] [facility]* Diagnosis Encounter to establish care- Primary [...] Hypervitaminosis D documented in this encounter [facility] note* Diagnosis Encounter to establish care- Primary [...] Primary Hypervitaminosis D documented in this encounter [facility] note* Diagnosis Encounter to establish care- Primary [...] COPD type (HCC) documented in this encounter [facility] note* Diagnosis Encounter to establish care- Primary [...] Abnormal mammogram, unspecified documented in this encounter [facility] note* Diagnosis Encounter to establish care- Primary [...] unspecified cause documented in this encounter [facility] note* Diagnosis Encounter to establish care- Primary [...] Urinary frequency [facility] Diagnosis Encounter to establish care- Primary [...] use Urinary frequency [facility] [place] [facility]* Diagnosis Encounter to establish care- Primary [...] Abnormal mammogram, unspecified [facility] Diagnosis Encounter to establish care- Primary [...] Abnormal mammogram, unspecified documented in this encounter [facility] note* Diagnosis Encounter to establish care- Primary [...] Abnormal mammogram, unspecified documented in this encounter [facility] note* Diagnosis Encounter to establish care- Primary [...] Tobacco use disorder documented in this encounter [facility] note* Diagnosis Encounter to establish care- Primary [...] thyroid function study documented in this encounter [facility] [place] [facility]* Diagnosis Encounter to establish care- Primary [...] opiate use Encounter for screening for lung cancer Tobacco abuse Tobacco use disorder [facility] Diagnosis Encounter to establish care- Primary [...] and myositis, unspecified Chronic prescription opiate use Multiple lung nodules- Primary Other nonspecific abnormal finding of lung field Encounter for screening for lung cancer Former tobacco use Personal history of tobacco use, presenting hazards to health Chronic obstructive pulmonary disease, unspecified COPD type (HCC) [facility] Diagnosis Encounter to establish care- Primary [...] and myositis, unspecified Chronic prescription opiate use Chronic obstructive pulmonary disease, unspecified COPD type (HCC)- Primary Tobacco use disorder [facility] Instructions Your history and exam is consistent with a spasm to your SCM muscle belly. You need to continue to stretch and heat the area to reduce pain and speed healing. Add the prescribed medications from the ER to help control symptoms and return should you have any further concerns. It will typically take 7 to 14 days for your symptoms to completely improveWCleveland Clinic [facility] Work Phone: Reason for referral (narrative)* Diagnostic Procedure Only (Routine) - Authorized Specialty Diagnoses / Procedures Referred By Endy montes Referred To Contact [facility] Diagnoses Screening mammogram for breast cancer Procedures EDDY SCREENING SCREENING MAMMOGRAPHY BI 2-VIEW BREAST INC CAD Negrito Wilburn MD [address] [place] [address] [facility] [address] [place] [address] Referral ID Status Reason Start Date Expiration Date Visits Requested Visits Authorized [id number] Authorized Auto-Generat ed Referral 03/07/2022 09/17/2022 1 1 [facility] for referral (narrative)* Diagnostic Procedure Only (Routine) - Pending Review Specialty Diagnoses / Procedures Referred By Endy Referred To Contact [facility] Diagnoses Abnormal mammogram Procedures US BREAST LTD LT US BREAST UNI REAL TIME WITH IMAGE LIMITED LanlogJessica bennett APRN.INSPECTOR HANDBAG FRAMES [address] [place] [address] [facility] [address] [place] [address] Referral ID Status Reason Start Date Expiration Date Visits Requested Visits Authorized [id number] Pending Review Auto-Generat ed Referral 03/14/2022 04/13/2023 1 1 * Diagnostic Procedure Only (Routine) - Pending Review Specialty Diagnoses / Procedures Referred By Endy Referred To Contact [facility] Diagnoses Abnormal mammogram Procedures EDDY DIAGNOSTIC LT DIAGNOSTIC MAMMOGRAPHY COMPUTER-AIDED DETCJ UNI Podlogar, APRN. JessicaINSPECTOR HANDBAG FRAMES [address] [place] [id number] [facility] [address] [place] [address] Referral ID Status Reason Start Date Expiration Date Visits Requested Visits Authorized [id number] Pending Review Auto-Generat ed Referral 03/14/2022 04/13/2023 1 1 [facility] for referral (narrative)* Diagnostic Procedure Only (Routine) - Closed Specialty Diagnoses / Procedures Referred By [facility] Referred To Contact [facility] Diagnoses Screening mammogram for breast cancer Procedures EDDY SCREENING SCREENING MAMMOGRAPHY BI 2-VIEW BREAST INC CAD Negrito Wilburn MD [address] [place] [address] [facility] [address] [place] [address] Referral ID Status Reason Start Date Expiration Date V isits Requested Visits Authorized [id number] Closed Auto-Generate d Referral 03/07/2022 09/17/2022 1 1 [facility] for referral (narrative)* Outpatient Procedure (Routine) - Authorized Specialty Diagnoses / Procedures Referred By [facility] Referred To Contact [facility] [place] Diagnoses Decreased pedal pulses Procedures PVR ANK PRESS MANDI VAS LAB NON-INVAS PHYSIOLOGIC STD EXTREMITY ART 2 LEVEL Podlogsabrina, RACHAEL Lopez [address] [place] [address] [facility] [address] [address] Referral ID Status Reason Start Date Expiration Date Visits Requested Visits Authorized [id number] Authorized Auto-Generat ed Referral 05/16/2022 05/16/2023 1 1 [facility] for referral (narrative)* Diagnostic Procedure Only (Urgent) - Authorized Specialty Diagnoses / Procedures Referred By [facility] Referred To Contact [facility] Diagnoses Chest pain, unspecified type Procedures NM CARDIAC PERF STRESS/PHARM MYOCARDIAL SPECT MULTIPLE STUDIES Negrito Wilburn MD [address] [place] [address] [facility] [address] [place] [address] Referral ID Status Reason Start Date Expiration Date Visits Requested Visits Authorized [id number] Authorized Auto-Generat ed Referral 02/16/2023 03/17/2024 1 1 * Outpatient Procedure (Routine) - Closed Specialty Diagnoses / Procedures Referred By Contac t Referred To Contact [facility] [place] Diagnoses Chest pain, unspecified type Procedures ECG COMPLETE ECG ROUTINE ECG W/LEAST 12 LDS W/I&R Negrito Wilburn MD [address] [place] [address] [facility] [address] [address] Referral ID Status Reason Start Date Expiration Date V isits Requested Visits Authorized [id number] Closed Auto-Generate d Referral 02/16/2023 02/16/2024 1 1 [facility] for referral (narrative)* Diagnostic Procedure Only (Routine) - Pending Review Specialty Diagnoses / Procedures Referred By Endy montes Referred To Contact [facility] Diagnoses Encounter for screening mammogram for breast cancer Procedures EDDY SCREENING SCREENING MAMMOGRAPHY BI 2-VIEW BREAST INC CAD Negrito Wilburn MD [address] [place] [address] [facility] [address] [place] [phone] Referral ID Status Reason Start Date Expiration Date Visits Requested Visits Authorized [id number] Pending Review Auto-Generat ed Referral 04/19/2023 05/18/2024 1 1 T [facility] for referral (narrative)* Diagnostic Procedure Only (Urgent) - Closed Specialty Diagnoses / Procedures Referred By Endy montes Referred To Contact [facility] Diagnoses Chest pain, unspecified type Procedures NM CARDIAC PERF STRESS/PHARM MYOCARDIAL SPECT MULTIPLE STUDIES Negrito Wilburn MD [address] [place] [address] [facility] [address] [place] [address] Referral ID Status Reason Start Date Expiration Date V isits Requested Visits Authorized [id number] Closed Auto-Generate d Referral 02/16/2023 03/17/2024 1 1 T [facility] for referral (narrative)* Outpatient Procedure (Routine) - Pending Review Specialty Diagnoses / Procedures Referred By Endy montes Referred To Contact [facility] Diagnoses Screening for colon cancer Tubulovillous adenoma Procedures COLONOSCOPY SCREENING COLONOSCOPY FLX DX W/COLLJ SPEC WHEN Roberth Rodrigues MD [facility] [address] [address] [facility] [place] [address] [place] [address] Referral ID Status Reason Start Date Expiration Date Visits Requested Visits Authorized [id number] Pending Review Auto-Generat ed Referral 11/24/2023 11/23/2024 1 1 [facility] for referral (narrative)* Diagnostic Procedure Only (Routine) - Pending Review Specialty Diagnoses / Procedures Referred By Endy montes Referred To Contact [facility] Diagnoses Coronary artery calcification seen on CAT scan GILL (dyspnea on exertion) Abnormal ECG Primary hypertension Hyperlipidemia, mixed Procedures NM CARDIAC PERF STRESS/PHARM MYOCARDIAL SPECT MULTIPLE STUDIES Lorenza Major DO [address] [place] [address] [facility] [address] [place] [address] Referral ID Status Reason Start Date Expiration Date Visits Requested Visits Authorized [id number] Pending Review Auto-Generat ed Referral 03/11/2024 04/10/2025 1 1 [facility] for referral (narrative)* Outpatient Procedure (Routine) - Closed Specialty Diagnoses / Procedures Referred By Endy montes Referred To Contact [facility] Diagnoses Screening for colon cancer Tubulovillous adenoma Procedures COLONOSCOPY SCREENING COLONOSCOPY FLX DX W/COLLJ SPEC WHEN Roberth Rodrigues MD [address] [address] [facility] [address] [place] [address] Referral ID Status Reason Start Date Expiration Date V isits Requested Visits Authorized [id number] Closed Auto-Generate d Referral 01/09/2024 01/08/2025 1 1 [facility] for referral (narrative)* Diagnostic Procedure Only (Urgent) - Closed Specialty Diagnoses / Procedures Referred By Endy montes Referred To Contact [facility] Diagnoses Pain of right thumb Procedures XR DIGIT GENERAL 3V FRONTAL/LAT/OBL RIGHT RADEX FINGR MINIMUM 2 VIEWS PodlogarJessica APRN.INSPECTOR HANDBAG FRAMES [address] [place] [address] [place] [address] Referral ID Status Reason Start Date Expiration Date V isits Requested Visits Authorized [id number] Closed Auto-Generate d Referral 06/05/2024 07/05/2025 1 1 * Diagnostic Procedure Only (Routine) - New Request Specialty Diagnoses / Procedures Referred By Endy montes Referred To Contact [facility] Diagnoses Encounter for screening mammogram for breast cancer Procedures EDDY SCREENING W ROXANNE SCREENING DIGITAL BREAST TOMOSYNTHESIS BI SCREENING MAMMOGRAPHY BI 2-VIEW BREAST INC CAD LanlogJessica bennett APRN.INSPECTOR [employer]AMES [address] [place] [address] [facility] [address] [place] [address] Referral ID Status Reason Start Date Expiration Date Visits Requested Visits Authorized [id number] New Request Auto-Generat ed Referral 06/05/2024 07/05/2025 1 1 [facility] for referral (narrative)* Diagnostic Procedure Only (Urgent) - Closed Specialty Diagnoses / Procedures Referred By Endy montes Referred To Contact [facility] Diagnoses Pain of right thumb Procedures XR DIGIT GENERAL 3V FRONTAL/LAT/OBL RIGHT RADEX FINGR MINIMUM 2 VIEWS Jessica Palencia APRN.INSPECTOR [employer] [address] [place] [address] [place] [address] Referral ID Status Reason Start Date Expiration Date V isits Requested Visits Authorized [id number] Closed Auto-Generate d Referral 06/05/2024 07/05/2025 1 1 [facility] for referral (narrative)No reason for referral information availableWCleveland Clinic [facility]cre[facility] Work Phone: Reason for visit Narrative* Diagnostic Procedure Only (Routine) - Closed Specialty Diagnoses / Procedures Referred By Contac t Referred To Contact [facility] Diagnoses Screening mammogram for breast cancer Procedures EDDY SCREENING SCREENING MAMMOGRAPHY BI 2-VIEW BREAST INC CAD Negrito Wilburn MD [address] [place] [address] [facility] [address] [place] [address] Referral ID Status Reason Start Date Expiration Date V isits Requested Visits Authorized [id number] Closed Auto-Generate d Referral 03/07/2022 09/17/2022 1 1 [facility] for visit Narrative* Diagnostic Procedure Only (Routine) - Closed Specialty Diagnoses / Procedures Referred By Endy t Referred To Contact [facility] Diagnoses Encounter for screening mammogram for breast cancer Procedures EDDY SCREENING SCREENING MAMMOGRAPHY BI 2-VIEW BREAST INC Negrito Lubin MD [address] [place] [address] [facility] [address] [place] [address] Referral ID Status Reason Start Date Expiration Date V isits Requested Visits Authorized [id number] Closed Auto-Generate d Referral 04/19/2023 05/18/2024 1 1 [facility] for visit Narrative* Outpatient Procedure (Routine) - Closed Specialty Diagnoses / Procedures Referred By Endy montes Referred To Contact [facility] Diagnoses Screening for colon cancer Tubulovillous adenoma Procedures COLONOSCOPY SCREENING COLONOSCOPY FLX DX W/COLLJ SPEC WHEN Roberth Rodrigues MD [address] [address] [facility] [address] [place] [address] Referral ID Status Reason Start Date Expiration Date V isits Requested Visits Authorized [id number] Closed Auto-Generate d Referral 01/09/2024 01/08/2025 1 1 [facility] for visit Narrative* Diagnostic Procedure Only (Urgent) - Closed Specialty Diagnoses / Procedures Referred By Endy montes Referred To Contact [facility] Diagnoses Pain of right thumb Procedures XR DIGIT GENERAL 3V FRONTAL/LAT/OBL RIGHT RADEX FINGR MINIMUM 2 VIEWS PodlogarJessica APRN.INSPECTOR HANDBAG FRAMES [address] [place] [address] [place] [address] Referral ID Status Reason Start Date Expiration Date V isits Requested Visits Authorized [id number] Closed Auto-Generate d Referral 06/05/2024 07/05/2025 1 1 [facility] for visit Narrative* Diagnostic Procedure Only (Routine) - Closed Specialty Diagnoses / Procedures Referred By Contac t Referred To Contact [facility] Diagnoses Abnormal mammogram Procedures EDDY DIAGNOSTIC LEFT DIAGNOSTIC MAMMOGRAPHY COMPUTER-AIDED DETCJ UNI Podlogar, Jessica, KALEB.INSPECTOR HANDBAG FRAMES [address] [place] [address] Phone: tel: fax: [facility] [address] [place] [address] Referral ID Status Reason Start Date Expiration Date V isits Requested Visits Authorized [id number] Closed Auto-Generate d Referral 01/13/2025 02/12/2026 1 1 [facility] for visit Narrative* Diagnostic Procedure Only (Routine) - Closed Specialty Diagnoses / Procedures Referred By Contac t Referred To Contact [facility] Diagnoses Abnormal mammogram Procedures US BREAST LTD LEFT US BREAST UNI REAL TIME WITH IMAGE LIMITED Podlogsabrina, Jessica, DIGITAL TECHNICIAN.INSPECTOR [employer] [address] [place] [address] Phone: tel: fax: [facility] [address] [place] [address] Referral ID Status Reason Start Date Expiration Date V isits Requested Visits Authorized [id number] Closed Auto-Generate d Referral 01/13/2025 02/12/2026 1 1 [facility] Advance Directives No Advanced Directives Records FoundDocuments on File Type Date Recorded Patient Safety Sitter Expl anation Advance Directive(s) 10/22/2018 9:38 AM Advance Directive(s) 02/23/2018 3:58 PM Advance Directive(s) 02/14/2018 5:13 PM Advance Directive(s) 01/10/2018 4:49 PM Advance Directive(s) 07/24/2013 6:56 AM Advance Directive(s) 07/21/2009 5:14 AM Advance Directive(s) 04/11/2007 12:00 AM Documents on File Type Date Recorded Patient Safety Sitter Expl anation Advance Directive(s) 10/22/2018 9:38 AM Advance Directive(s) 02/23/2018 3:58 PM Advance Directive(s) 02/14/2018 5:13 PM Advance Directive(s) 01/10/2018 4:49 PM Advance Directive(s) 07/24/2013 6:56 AM Advance Directive(s) 07/21/2009 5:14 AM Advance Directive(s) 04/11/2007 12:00 AM Documents on File Type Date Recorded Patient Safety Sitter Expl anation Advance Directive(s) 02/23/2018 3:58 PM Advance Directive(s) 07/24/2013 6:56 AM Advance Directive(s) 07/21/2009 5:14 AM Advance Directive(s) 04/11/2007 Documents on File Type Date Recorded Patient Safety Sitter Expl anation Advance Directive(s) 02/23/2018 3:58 PM Advance Directive(s) 07/24/2013 6:56 AM Advance Directive(s) 07/21/2009 5:14 AM Advance Directive(s) 04/11/2007 Advance Directive Response Recorded Date/ Time Living Will No March 07, 2018 12:29pm Power of Parcel Contractor Yes March 07 12:29pm Advance Directive Response Recorded Date/ Time Do you have a Healthcare Power of Parcel Contractor? No April 02, 2025 11:05pm Reason for Referral Specialty Diagnoses / Procedures Referred By Endy montes Referred To Contact Vascular Surgery Diagnoses PAD (peripheral artery disease) (HCC) Procedures CONSULT TO VASCULAR SURGERY OFFICE/OUTPATIENT [facility] 60-74 MINUTES Negrito Wilburn MD [address] [place] [address] Referral ID Status Reason Start Date Expiration Date Visits Requested Visits Authorized [id number] Pending Review PCP Requested Referral 05/13/2022 05/13/2023 1 1 Specialty Diagnoses / Procedures Referred By Endy montes Referred To Contact General Surgery Diagnoses Abnormal mammogram Procedures CONSULT TO GENERAL SURGERY OFFICE/OUTPATIENT [facility] 60-74 MINUTES Jessica Palencia APRN.CNP [address] [place] [address] Referral ID Status Reason Start Date Expiration Date Visits Requested Visits Authorized [id number] Pending Review PCP Requested Referral 05/03/2022 05/03/2023 1 1 Specialty Diagnoses / Procedures Referred By Contac t Referred To Contact CT [facility]AG[facility] Diagnoses Tobacco abuse Encounter for screening for lung cancer Procedures CT LUNG SCREEN WO IVCON COMPUTED TOMOGRAPHY THORAX LW DOSE LNG CA SCR C- Tatyana Perez, DIGITAL TECHNICIAN.INSPECTOR [employer] [address] [place] [address] [facility] [place] [address] Referral ID Status Reason Start Date Expiration Date Visits Requested Visits Authorized [id number] Pending Review Auto-Generat ed Referral 10/19/2023 11/17/2024 1 1 Specialty Diagnoses / Procedures Referred By Contac t Referred To Contact Cardiology Diagnoses Coronary artery calcification seen on CAT scan Procedures CONSULT TO CARDIOLOGY OFFICE/OUTPATIENT [facility] 60 MINUTES Tatyana Perez, DIGITAL TECHNICIAN.INSPECTOR [employer] [address] [place] [id number] Referral ID Status Reason Start Date Expiration Date Visits Requested Visits Authorized [id number] Authorized PCP Requested Referral 10/19/2023 10/18/2024 1 1 Specialty Diagnoses / Procedures Referred By Contac t Referred To Contact Urology Diagnoses Stress incontinence Procedures CONSULT TO UROLOGY OFFICE/OUTPATIENT [facility] 60 MINUTES Helen Taylor, DIGITAL TECHNICIAN.INSPECTOR [employer] [address] [place] [address] Referral ID Status Reason Start Date Expiration Date Visits Requested Visits Authorized [id number] Authorized PCP Requested Referral 11/09/2023 11/08/2024 1 1 Chief Complaint and Reason for Visit Chief Complaint OPIOID DEPENDENCE, U NCOMPLICATED Chief Complaint Admit Date neck pain April 02, 2025 11:0 5pm Chief Complaint Admit Date neck pain April 02, 2025 11:0 5pm XRAY April 08, 2025 2:27 pm Summary Purpose Family History No Family History Records Found Additional Source Comments Source Comments (unrecognize d section and content) In the event this informatio n is protected by the Federal Confidentiality of Alcohol and Drug Abuse Patient Records regulations: The Federal rules restrict any use of the information to criminally investigate or prosecute any alcohol or drug abuse patient.[facility] the event this information is protected by the Federal Confidentiality of Alcohol and Drug Abuse Patient Records regulations: The Federal rules restrict any use of the information to criminally investigate or prosecute any alcohol or drug abuse patient.[facility] CenterIn the event this information is protected by the Federal Confidentiality of Alcohol and Drug Abuse Patient Records regulations: The Federal rules restrict any use of the information to criminally investigate or prosecute any alcohol or drug abuse patient.[facility] CenterIn the event this information is protected by the Federal Confidentiality of Alcohol and Drug Abuse Patient Records regulations: The Federal rules restrict any use of the information to criminally investigate or prosecute any alcohol or drug abuse patient.[facility] CenterIn the event this information is protected by the Federal Confidentiality of Alcohol and Drug Abuse Patient Records regulations: The Federal rules restrict any use of the information to criminally investigate or prosecute any alcohol or drug abuse patient.[facility] CenterIn the event this information is protected by the Federal Confidentiality of Alcohol and Drug Abuse Patient Records regulations: The Federal rules restrict any use of the information to criminally investigate or prosecute any alcohol or drug abuse patient.[facility] CenterIn the event this information is protected by the Federal Confidentiality of Alcohol and Drug Abuse Patient Records regulations: The Federal rules restrict any use of the information to criminally investigate or prosecute any alcohol or drug abuse patient.[facility] CenterIn the event this information is protected by the Federal Confidentiality of Alcohol and Drug Abuse Patient Records regulations: The Federal rules restrict any use of the information to criminally investigate or prosecute any alcohol or drug abuse patient.[facility] CenterIn the event this information is protected by the Federal Confidentiality of Alcohol and Drug Abuse Patient Records regulations: The Federal rules restrict any use of the information to criminally investigate or prosecute any alcohol or drug abuse patient.[facility] CenterIn the event this information is protected by the Federal Confidentiality of Alcohol and Drug Abuse Patient Records regulations: The Federal rules restrict any use of the information to criminally investigate or prosecute any alcohol or drug abuse patient.[facility] CenterIn the event this information is protected by the Federal Confidentiality of Alcohol and Drug Abuse Patient Records regulations: The Federal rules restrict any use of the information to criminally investigate or prosecute any alcohol or drug abuse patient.[facility] CenterIn the event this information is protected by the Federal Confidentiality of Alcohol and Drug Abuse Patient Records regulations: The Federal rules restrict any use of the information to criminally investigate or prosecute any alcohol or drug abuse patient.[facility] CenterIn the event this information is protected by the Federal Confidentiality of Alcohol and Drug Abuse Patient Records regulations: The Federal rules restrict any use of the information to criminally investigate or prosecute any alcohol or drug abuse patient.[facility] CenterIn the event this information is protected by the Federal Confidentiality of Alcohol and Drug Abuse Patient Records regulations: The Federal rules restrict any use of the information to criminally investigate or prosecute any alcohol or drug abuse patient.[facility] CenterIn the event this information is protected by the Federal Confidentiality of Alcohol and Drug Abuse Patient Records regulations: The Federal rules restrict any use of the information to criminally investigate or prosecute any alcohol or drug abuse patient.[facility] CenterIn the event this information is protected by the Federal Confidentiality of Alcohol and Drug Abuse Patient Records regulations: The Federal rules restrict any use of the information to criminally investigate or prosecute any alcohol or drug abuse patient.[facility] CenterIn the event this information is protected by the Federal Confidentiality of Alcohol and Drug Abuse Patient Records regulations: The Federal rules restrict any use of the information to criminally investigate or prosecute any alcohol or drug abuse patient.[facility] CenterIn the event this information is protected by the Federal Confidentiality of Alcohol and Drug Abuse Patient Records regulations: The Federal rules restrict any use of the information to criminally investigate or prosecute any alcohol or drug abuse patient.[facility] CenterIn the event this information is protected by the Federal Confidentiality of Alcohol and Drug Abuse Patient Records regulations: The Federal rules restrict any use of the information to criminally investigate or prosecute any alcohol or drug abuse patient.[facility] CenterIn the event this information is protected by the Federal Confidentiality of Alcohol and Drug Abuse Patient Records regulations: The Federal rules restrict any use of the information to criminally investigate or prosecute any alcohol or drug abuse patient.[facility] CenterIn the event this information is protected by the Federal Confidentiality of Alcohol and Drug Abuse Patient Records regulations: The Federal rules restrict any use of the information to criminally investigate or prosecute any alcohol or drug abuse patient.[facility] CenterIn the event this information is protected by the Federal Confidentiality of Alcohol and Drug Abuse Patient Records regulations: The Federal rules restrict any use of the information to criminally investigate or prosecute any alcohol or drug abuse patient.[facility] CenterIn the event this information is protected by the Federal Confidentiality of Alcohol and Drug Abuse Patient Records regulations: The Federal rules restrict any use of the information to criminally investigate or prosecute any alcohol or drug abuse patient.[facility] CenterIn the event this information is protected by the Federal Confidentiality of Alcohol and Drug Abuse Patient Records regulations: The Federal rules restrict any use of the information to criminally investigate or prosecute any alcohol or drug abuse patient.[facility] CenterIn the event this information is protected by the Federal Confidentiality of Alcohol and Drug Abuse Patient Records regulations: The Federal rules restrict any use of the information to criminally investigate or prosecute any alcohol or drug abuse patient.[facility] CenterIn the event this information is protected by the Federal Confidentiality of Alcohol and Drug Abuse Patient Records regulations: The Federal rules restrict any use of the information to criminally investigate or prosecute any alcohol or drug abuse patient.[facility] CenterIn the event this information is protected by the Federal Confidentiality of Alcohol and Drug Abuse Patient Records regulations: The Federal rules restrict any use of the information to criminally investigate or prosecute any alcohol or drug abuse patient.[facility] CenterIn the event this information is protected by the Federal Confidentiality of Alcohol and Drug Abuse Patient Records regulations: The Federal rules restrict any use of the information to criminally investigate or prosecute any alcohol or drug abuse patient.[facility] CenterIn the event this information is protected by the Federal Confidentiality of Alcohol and Drug Abuse Patient Records regulations: The Federal rules restrict any use of the information to criminally investigate or prosecute any alcohol or drug abuse patient.[facility] CenterIn the event this information is protected by the Federal Confidentiality of Alcohol and Drug Abuse Patient Records regulations: The Federal rules restrict any use of the information to criminally investigate or prosecute any alcohol or drug abuse patient.[facility] CenterIn the event this information is protected by the Federal Confidentiality of Alcohol and Drug Abuse Patient Records regulations: The Federal rules restrict any use of the information to criminally investigate or prosecute any alcohol or drug abuse patient.[facility] CenterIn the event this information is protected by the Federal Confidentiality of Alcohol and Drug Abuse Patient Records regulations: The Federal rules restrict any use of the information to criminally investigate or prosecute any alcohol or drug abuse patient.[facility] CenterIn the event this information is protected by the Federal Confidentiality of Alcohol and Drug Abuse Patient Records regulations: The Federal rules restrict any use of the information to criminally investigate or prosecute any alcohol or drug abuse patient.[facility] CenterIn the event this information is protected by the Federal Confidentiality of Alcohol and Drug Abuse Patient Records regulations: The Federal rules restrict any use of the information to criminally investigate or prosecute any alcohol or drug abuse patient.[facility] CenterIn the event this information is protected by the Federal Confidentiality of Alcohol and Drug Abuse Patient Records regulations: The Federal rules restrict any use of the information to criminally investigate or prosecute any alcohol or drug abuse patient.[facility] CenterIn the event this information is protected by the Federal Confidentiality of Alcohol and Drug Abuse Patient Records regulations: The Federal rules restrict any use of the information to criminally investigate or prosecute any alcohol or drug abuse patient.[facility] CenterIn the event this information is protected by the Federal Confidentiality of Alcohol and Drug Abuse Patient Records regulations: The Federal rules restrict any use of the information to criminally investigate or prosecute any alcohol or drug abuse patient.[facility] CenterIn the event this information is protected by the Federal Confidentiality of Alcohol and Drug Abuse Patient Records regulations: The Federal rules restrict any use of the information to criminally investigate or prosecute any alcohol or drug abuse patient.[facility] CenterIn the event this information is protected by the Federal Confidentiality of Alcohol and Drug Abuse Patient Records regulations: The Federal rules restrict any use of the information to criminally investigate or prosecute any alcohol or drug abuse patient.[facility] CenterIn the event this information is protected by the Federal Confidentiality of Alcohol and Drug Abuse Patient Records regulations: The Federal rules restrict any use of the information to criminally investigate or prosecute any alcohol or drug abuse patient.[facility] CenterIn the event this information is protected by the Federal Confidentiality of Alcohol and Drug Abuse Patient Records regulations: The Federal rules restrict any use of the information to criminally investigate or prosecute any alcohol or drug abuse patient.[facility] CenterIn the event this information is protected by the Federal Confidentiality of Alcohol and Drug Abuse Patient Records regulations: The Federal rules restrict any use of the information to criminally investigate or prosecute any alcohol or drug abuse patient.[facility] CenterIn the event this information is protected by the Federal Confidentiality of Alcohol and Drug Abuse Patient Records regulations: The Federal rules restrict any use of the information to criminally investigate or prosecute any alcohol or drug abuse patient.[facility] CenterIn the event this information is protected by the Federal Confidentiality of Alcohol and Drug Abuse Patient Records regulations: The Federal rules restrict any use of the information to criminally investigate or prosecute any alcohol or drug abuse patient.[facility] CenterIn the event this information is protected by the Federal Confidentiality of Alcohol and Drug Abuse Patient Records regulations: The Federal rules restrict any use of the information to criminally investigate or prosecute any alcohol or drug abuse patient.[facility] CenterIn the event this information is protected by the Federal Confidentiality of Alcohol and Drug Abuse Patient Records regulations: The Federal rules restrict any use of the information to criminally investigate or prosecute any alcohol or drug abuse patient.[facility] CenterIn the event this information is protected by the Federal Confidentiality of Alcohol and Drug Abuse Patient Records regulations: The Federal rules restrict any use of the information to criminally investigate or prosecute any alcohol or drug abuse patient.[facility] CenterIn the event this information is protected by the Federal Confidentiality of Alcohol and Drug Abuse Patient Records regulations: The Federal rules restrict any use of the information to criminally investigate or prosecute any alcohol or drug abuse patient.[facility] CenterIn the event this information is protected by the Federal Confidentiality of Alcohol and Drug Abuse Patient Records regulations: The Federal rules restrict any use of the information to criminally investigate or prosecute any alcohol or drug abuse patient.[facility] CenterIn the event this information is protected by the Federal Confidentiality of Alcohol and Drug Abuse Patient Records regulations: The Federal rules restrict any use of the information to criminally investigate or prosecute any alcohol or drug abuse patient.[facility] CenterIn the event this information is protected by the Federal Confidentiality of Alcohol and Drug Abuse Patient Records regulations: The Federal rules restrict any use of the information to criminally investigate or prosecute any alcohol or drug abuse patient.[facility] CenterIn the event this information is protected by the Federal Confidentiality of Alcohol and Drug Abuse Patient Records regulations: The Federal rules restrict any use of the information to criminally investigate or prosecute any alcohol or drug abuse patient.[facility] CenterIn the event this information is protected by the Federal Confidentiality of Alcohol and Drug Abuse Patient Records regulations: The Federal rules restrict any use of the information to criminally investigate or prosecute any alcohol or drug abuse patient.[facility] CenterIn the event this information is protected by the Federal Confidentiality of Alcohol and Drug Abuse Patient Records regulations: The Federal rules restrict any use of the information to criminally investigate or prosecute any alcohol or drug abuse patient.[facility] CenterIn the event this information is protected by the Federal Confidentiality of Alcohol and Drug Abuse Patient Records regulations: The Federal rules restrict any use of the information to criminally investigate or prosecute any alcohol or drug abuse patient.[facility] CenterIn the event this information is protected by the Federal Confidentiality of Alcohol and Drug Abuse Patient Records regulations: The Federal rules restrict any use of the information to criminally investigate or prosecute any alcohol or drug abuse patient.[facility] CenterIn the event this information is protected by the Federal Confidentiality of Alcohol and Drug Abuse Patient Records regulations: The Federal rules restrict any use of the information to criminally investigate or prosecute any alcohol or drug abuse patient.[facility] CenterIn the event this information is protected by the Federal Confidentiality of Alcohol and Drug Abuse Patient Records regulations: The Federal rules restrict any use of the information to criminally investigate or prosecute any alcohol or drug abuse patient.[facility] CenterIn the event this information is protected by the Federal Confidentiality of Alcohol and Drug Abuse Patient Records regulations: The Federal rules restrict any use of the information to criminally investigate or prosecute any alcohol or drug abuse patient.[facility] CenterIn the event this information is protected by the Federal Confidentiality of Alcohol and Drug Abuse Patient Records regulations: The Federal rules restrict any use of the information to criminally investigate or prosecute any alcohol or drug abuse patient.[facility] CenterIn the event this information is protected by the Federal Confidentiality of Alcohol and Drug Abuse Patient Records regulations: The Federal rules restrict any use of the information to criminally investigate or prosecute any alcohol or drug abuse patient.[facility] CenterIn the event this information is protected by the Federal Confidentiality of Alcohol and Drug Abuse Patient Records regulations: The Federal rules restrict any use of the information to criminally investigate or prosecute any alcohol or drug abuse patient.[facility] CenterIn the event this information is protected by the Federal Confidentiality of Alcohol and Drug Abuse Patient Records regulations: The Federal rules restrict any use of the information to criminally investigate or prosecute any alcohol or drug abuse patient.[facility] CenterIn the event this information is protected by the Federal Confidentiality of Alcohol and Drug Abuse Patient Records regulations: The Federal rules restrict any use of the information to criminally investigate or prosecute any alcohol or drug abuse patient.[facility] CenterIn the event this information is protected by the Federal Confidentiality of Alcohol and Drug Abuse Patient Records regulations: The Federal rules restrict any use of the information to criminally investigate or prosecute any alcohol or drug abuse patient.[facility] CenterIn the event this information is protected by the Federal Confidentiality of Alcohol and Drug Abuse Patient Records regulations: The Federal rules restrict any use of the information to criminally investigate or prosecute any alcohol or drug abuse patient.[facility] CenterIn the event this information is protected by the Federal Confidentiality of Alcohol and Drug Abuse Patient Records regulations: The Federal rules restrict any use of the information to criminally investigate or prosecute any alcohol or drug abuse patient.[facility] CenterIn the event this information is protected by the Federal Confidentiality of Alcohol and Drug Abuse Patient Records regulations: The Federal rules restrict any use of the information to criminally investigate or prosecute any alcohol or drug abuse patient.[facility] CenterIn the event this information is protected by the Federal Confidentiality of Alcohol and Drug Abuse Patient Records regulations: The Federal rules restrict any use of the information to criminally investigate or prosecute any alcohol or drug abuse patient.[facility] CenterIn the event this information is protected by the Federal Confidentiality of Alcohol and Drug Abuse Patient Records regulations: The Federal rules restrict any use of the information to criminally investigate or prosecute any alcohol or drug abuse patient.[facility] CenterIn the event this information is protected by the Federal Confidentiality of Alcohol and Drug Abuse Patient Records regulations: The Federal rules restrict any use of the information to criminally investigate or prosecute any alcohol or drug abuse patient.[facility] CenterIn the event this information is protected by the Federal Confidentiality of Alcohol and Drug Abuse Patient Records regulations: The Federal rules restrict any use of the information to criminally investigate or prosecute any alcohol or drug abuse patient.[facility] CenterIn the event this information is protected by the Federal Confidentiality of Alcohol and Drug Abuse Patient Records regulations: The Federal rules restrict any use of the information to criminally investigate or prosecute any alcohol or drug abuse patient.[facility] CenterIn the event this information is protected by the Federal Confidentiality of Alcohol and Drug Abuse Patient Records regulations: The Federal rules restrict any use of the information to criminally investigate or prosecute any alcohol or drug abuse patient.[facility] CenterIn the event this information is protected by the Federal Confidentiality of Alcohol and Drug Abuse Patient Records regulations: The Federal rules restrict any use of the information to criminally investigate or prosecute any alcohol or drug abuse patient.[facility] CenterIn the event this information is protected by the Federal Confidentiality of Alcohol and Drug Abuse Patient Records regulations: The Federal rules restrict any use of the information to criminally investigate or prosecute any alcohol or drug abuse patient.[facility] CenterIn the event this information is protected by the Federal Confidentiality of Alcohol and Drug Abuse Patient Records regulations: The Federal rules restrict any use of the information to criminally investigate or prosecute any alcohol or drug abuse patient.[facility] CenterIn the event this information is protected by the Federal Confidentiality of Alcohol and Drug Abuse Patient Records regulations: The Federal rules restrict any use of the information to criminally investigate or prosecute any alcohol or drug abuse patient.[facility] CenterIn the event this information is protected by the Federal Confidentiality of Alcohol and Drug Abuse Patient Records regulations: The Federal rules restrict any use of the information to criminally investigate or prosecute any alcohol or drug abuse patient.[facility] CenterIn the event this information is protected by the Federal Confidentiality of Alcohol and Drug Abuse Patient Records regulations: The Federal rules restrict any use of the information to criminally investigate or prosecute any alcohol or drug abuse patient.[facility] CenterIn the event this information is protected by the Federal Confidentiality of Alcohol and Drug Abuse Patient Records regulations: The Federal rules restrict any use of the information to criminally investigate or prosecute any alcohol or drug abuse patient.[facility] CenterIn the event this information is protected by the Federal Confidentiality of Alcohol and Drug Abuse Patient Records regulations: The Federal rules restrict any use of the information to criminally investigate or prosecute any alcohol or drug abuse patient.[facility] CenterIn the event this information is protected by the Federal Confidentiality of Alcohol and Drug Abuse Patient Records regulations: The Federal rules restrict any use of the information to criminally investigate or prosecute any alcohol or drug abuse patient.[facility] CenterIn the event this information is protected by the Federal Confidentiality of Alcohol and Drug Abuse Patient Records regulations: The Federal rules restrict any use of the information to criminally investigate or prosecute any alcohol or drug abuse patient.[facility] CenterIn the event this information is protected by the Federal Confidentiality of Alcohol and Drug Abuse Patient Records regulations: The Federal rules restrict any use of the information to criminally investigate or prosecute any alcohol or drug abuse patient.[facility] CenterIn the event this information is protected by the Federal Confidentiality of Alcohol and Drug Abuse Patient Records regulations: The Federal rules restrict any use of the information to criminally investigate or prosecute any alcohol or drug abuse patient.[facility] CenterIn the event this information is protected by the Federal Confidentiality of Alcohol and Drug Abuse Patient Records regulations: The Federal rules restrict any use of the information to criminally investigate or prosecute any alcohol or drug abuse patient.[facility] CenterIn the event this information is protected by the Federal Confidentiality of Alcohol and Drug Abuse Patient Records regulations: The Federal rules restrict any use of the information to criminally investigate or prosecute any alcohol or drug abuse patient.[facility] CenterIn the event this information is protected by the Federal Confidentiality of Alcohol and Drug Abuse Patient Records regulations: The Federal rules restrict any use of the information to criminally investigate or prosecute any alcohol or drug abuse patient.[facility] Reason for Visit (unrecogniz ed section and content) Reason Comments Consult Initial SW Pt Outr each Reason Comments Physical Specialty Diagnoses / Procedures Referred By Contact Referred To Contact Family Practice / FAMILY MEDICINE Diagnoses 6 month follow up Procedures EST PATIENT Negrito Wilburn MD [address] [place] [address] Negrito Wilburn MD [address] [place] [address] Referral ID Status Reason Start Date Expiration Date V isits Requested Visits Authorized [id number] Closed Financial Clearance Required - OON Payor [...] Procedures NEW DDI BREAST Negrito Wilburn MD [address] [place] [address] Trudy Greco MD [address] [place] [address] Referral ID Status Reason Start Date Expiration Date Visits Re quested Visits Authorized [id number] Closed 05/18/2022 09/17/2022 1 1 Reason Comments [...] SPECT MULTIPLE STUDIES Negrito Wilburn MD [address] [place] [address] Molecular & Functional Imaging [address] [place] [address] Referral ID Status Reason Start Date Expiration Date V isits Requested Visits Authorized [id number] Closed Auto-Generate d Referral 02/16/2023 03/17/2024 1 [...] up Specialty Diagnoses / Procedures Referred By Endy t Referred To Contact General Surgery Diagnoses Screening for colon cancer Procedures CONSULT TO GENERAL SURGERY OFFICE/OUTPATIENT [facility] 60-74 MINUTES Negrito Wilburn MD [address] [place] [address] Referral ID Status Reason Start Date Expiration Date V isits Requested Visits Authorized [id number] Closed PCP Requested Referral 09/19/2023 09/18/2024 1 1 Reason Comments Med Change Request Reason Comments Opened In Error Reason Comments Recheck Follow up Reason Comments CARD New Patient Consult CT 10/16/23 - Mo d-severe coronary artery calcificationC/O SOB and has COPD (dx 3 years ago) Specialty Diagnoses / Procedures Referred By Endy montes Referred To Contact Cardiology Diagnoses Coronary artery calcification seen on CAT scan Procedures CONSULT TO CARDIOLOGY OFFICE/OUTPATIENT [facility] 60 MINUTES Tatyana Perez APRN.INSPECTOR [employer] [address] [place] [address] Referral ID Status Reason Start Date Expiration Date V isits Requested Visits Authorized [id number] Closed PCP Requested Referral 10/19/2023 10/18/2024 1 1 Reason Comments Appointment Reason Onset Date Comments Refill Request 03/13/2024 Reason Onset Date Comments Refill Request 03/20/2024 Reason Onset Date Comments Refill Request 05/08/2024 Reason Onset Date Comments Population Health Navigation Outreach 05/15/2024 [facility] WORKBESHIRA KINGSLEY Reason Comments Wellness Visit Reason Onset Date Comments Population Health Navigation Outreach 07/18/2024 [facility] WORKBENCH TEETEE PCSA Reason Comments 01/09/2024 colon asc Reason Onset Date Comments ACM CARLOS RN 07/29/2024 Medication Ad herence Review at request of payer Reason Onset Date Comments Population Health Navigation Outreach 08/19/2024 [facility] WORKBENCPriyanka KINGSLEY PCSA Reason Onset Date Comments Refill Request [...] Reason Onset Date Comments Refill Request 03/13/[address] Specialty Diagnoses / Procedures Referred By Contac t Referred To Contact CT IMAGING Diagnoses Encounter for screening for lung cancer Tobacco abuse Procedures CT LUNG SCREEN WO IVCON COMPUTED TOMOGRAPHY THORAX LW DOSE LNG CA SCR - [place], DIGITAL TECHNICIAN.INSPECTOR [employer] [address] [place] [address] Phone: tel: fax: [facility] IM[facility] [place] [phone] Referral ID Status Reason Start Date Expiration Date V isits Requested Visits Authorized [id number] Closed Auto-Generate d Referral 03/07/2025 04/06/2026 1 1 Reason Comments Established Patient Specialty Diagnoses / Procedures Referred By Contac t Referred To Contact CT IMAGING Diagnoses Encounter for screening for lung cancer Tobacco abuse Procedures CT LUNG SCREEN WO IVCON COMPUTED TOMOGRAPHY THORAX LW DOSE LNG CA SCR C- [place], Tatyana, DIGITAL TECHNICIAN.INSPECTOR [employer] [address] [place] [address] Phone: tel: fax: CT IMAGING [facility] Referral ID Status Reason Start Date Expiration Date V isits Requested Visits Authorized [id number] Closed Auto-Generate d Referral 03/07/2025 04/06/2026 1 1 Reason Comments Cough Chronic cough for ov er a year. Excessive mucus production. Does not see Pulmonary. States she's been dx with COPD. Does have shortness of breath. More so with exertion but can be anytime. Denies chest pain. Unsure if her Symbicort is helping. Albuterol does help. Reason Comments Patient Update FYI-No Action Needed Care Teams (unrecognized sec tion and content) Medication Manager Relationship Specialty Start Date End Date Negrito Wilburn MD [address] [place] [address] PCP - General Family Practice 08/20/18 Medication Manager Relationship Specialty Start Date End Date Negrito Wilburn MD [address] [place] [address] PCP - General Family Practice 08/20/18 Medication Manager Relationship Specialty Start Date End Date Negrito Wilburn MD [address] [place] [address] PCP - General Family Practice 08/20/18 Medication Manager Relationship Specialty Start Date End Date Negrito Wilburn MD [address] [place] [address] PCP - General Family Practice 08/20/18 Medication Manager Relationship Specialty Start Date End Date Negrito Wilburn MD [address] [place] [address] PCP - General Family Practice 08/20/18 Medication Manager Relationship Specialty Start Date End Date Negrito Wilburn MD [address] [place] [address] PCP - General Family Practice 08/20/18 Medication Manager Relationship Specialty Start Date End Date Negrito Wilburn MD [facility] [place] [address] PCP - General Family Practice 08/20/18 Medication Manager Relationship Specialty Start Date End Date Negrito Wilburn MD [facility] [place] [address] PCP - General Family Practice 08/20/18 Medication Manager Relationship Specialty Start Date End Date Negrito Wilburn MD [address] [place] [address] PCP - General Family Practice 08/20/18 Medication Manager Relationship Specialty Start Date End Date Negrito Wilburn MD [address] [place] [address] PCP - General Family Practice 08/20/18 Medication Manager Relationship Specialty Start Date End Date Negrito Wilburn MD [address] [place] [address] PCP - General Family Practice 08/20/18 Medication Manager Relationship Specialty Start Date End Date Negrito Wilburn MD [address] [place] [address] PCP - General Family Medicine 08/20/18 Medication Manager Relationship Specialty Start Date End Date Negrito Wilburn MD [address] [place] [address] PCP - General Family Medicine 08/20/18 Medication Manager Relationship Specialty Start Date End Date Negrito Wilburn MD [address] [place] [address] PCP - General Family Medicine 08/20/18 Team Status: Active Member Role Status Dates Dr. Roger Wilburn MD Family Provider Active Dr. Roger Wilburn MD Primary Care Provider Acti ve Team Status: Inactive Member Role Status Dates Dr. Roger Wilburn MD Primary Care Provider Acti ve Dr. Omer Hall MD Attending Provider, [facility] Active Medication Manager Relationship Specialty Start Date End Date Negrito Wilburn MD [address] [place] [address] PCP - General Family Medicine 08/20/18 Medication Manager Relationship Specialty Start Date End Date Negrito Wilburn MD [address] [place] [address] PCP - General Family Medicine 08/20/18 Medication Manager Relationship Specialty Start Date End Date Negrito Wilburn MD [address] [place] [address] PCP - General Family Medicine 08/20/18 Medication Manager Relationship Specialty Start Date End Date Negrito Wilburn MD [address] [place] [address] PCP - General Family Medicine 08/20/18 Medication Manager Relationship Specialty Start Date End Date Negrito Wilburn MD [address] [place] [address] PCP - General Family Medicine 08/20/18 Medication Manager Relationship Specialty Start Date End Date Negrito Wilburn MD [address] [place] [address] PCP - General Family Medicine 08/20/18 Medication Manager Relationship Specialty Start Date End Date Negrito Wilburn MD [address] [place] [address] PCP - General Family Medicine 08/20/18 Medication Manager Relationship Specialty Start Date End Date Negrito Wilburn MD [address] [place] [address] PCP - General Family Medicine 08/20/18 Medication Manager Relationship Specialty Start Date End Date Negrito Wilburn MD [address] [place] [address] PCP - General Family Medicine 08/20/18 Medication Manager Relationship Specialty Start Date End Date Negrito Wilburn MD [address] [place] [address] PCP - General Family Medicine 08/20/18 Medication Manager Relationship Specialty Start Date End Date Negrito Wilburn MD [address] [place] [address] PCP - General Family Medicine 08/20/18 Medication Manager Relationship Specialty Start Date End Date Negrito Wilburn MD [address] [place] [address] PCP - General Family Medicine 08/20/18 Medication Manager Relationship Specialty Start Date End Date Negrito Wilburn MD [address] [place] [address] PCP - General Family Medicine 08/20/18 Medication Manager Relationship Specialty Start Date End Date Negrito Wilburn MD [address] [place] [address] PCP - General Family Medicine 08/20/18 Medication Manager Relationship Specialty Start Date End Date Negrito Wilburn MD [address] [place] [address] PCP - General Family Medicine 08/20/18 Medication Manager Relationship Specialty Start Date End Date Negrito Wilburn MD [address] [place] [address] PCP - General Family Medicine 08/20/18 Medication Manager Relationship Specialty Start Date End Date Negrito Wilburn MD [address] [place] [address] PCP - General Family Medicine 08/20/18 Medication Manager Relationship Specialty Start Date End Date Negrito Wilburn MD [address] [place] [address] PCP - General Family Medicine 08/20/18 Medication Manager Relationship Specialty Start Date End Date Negrito Wilburn MD [address] [place] [address] PCP - General Family Medicine 08/20/18 Medication Manager Relationship Specialty Start Date End Date Negrito Wilburn MD [address] [place] [address] PCP - General Family Medicine 08/20/18 Medication Manager Relationship Specialty Start Date End Date Negrito Wilburn MD [address] [place] [address] PCP - General Family Medicine 08/20/18 Medication Manager Relationship Specialty Start Date End Date Negrito Wilburn MD [address] [place] [address] PCP - General Family Medicine 08/20/18 Medication Manager Relationship Specialty Start Date End Date Negrito Wilburn MD [address] [place] [address] PCP - General Family Medicine 08/20/18 Medication Manager Relationship Specialty Start Date End Date Negrito Wilburn MD [address] [place] [address] PCP - General Family Medicine 08/20/18 Lorenza Major DO [address], [place] [id number] Cardiology 03/11/24 Medication Manager Relationship Specialty Start Date End Date Negrito Wilburn MD [address] [place] [address] PCP - General Family Medicine 08/20/18 Lorenza Major DO [address], [place] [id number] Cardiology 03/11/24 Medication Manager Relationship Specialty Start Date End Date Negrito Wilburn MD [address] [place] [address] PCP - General Family Medicine 08/20/18 Lorenza Major DO [address] [place] [address] Cardiology 03/11/24 Medication Manager Relationship Specialty Start Date End Date Negrito Wilburn MD [address] [place] [address] PCP - General Family Medicine 08/20/18 Lorenza Major DO [address] [place] [address] Cardiology 03/11/24 Medication Manager Relationship Specialty Start Date End Date Negrito Wilburn MD [address] [place] [address] PCP - General Family Medicine 08/20/18 Lorenza Major DO [address], [place] [id number] Cardiology 03/11/24 Medication Manager Relationship Specialty Start Date End Date Negrito Wilburn MD [address] [place] [address] PCP - General Family Medicine 08/20/18 Lorenza Major DO [address] [place] [address] Cardiology 03/11/24 Medication Manager Relationship Specialty Start Date End Date Negrito Wilburn MD [address] [place] [address] PCP - General Family Medicine 08/20/18 Lorenza Major DO [address] [place] [address] Cardiology 03/11/24 Medication Manager Relationship Specialty Start Date End Date Negrito Wilburn MD [address] [place] [address] PCP - General Family Medicine 08/20/18 Lorenza Major DO [address] [place] [address] Cardiology 03/11/24 Medication Manager Relationship Specialty Start Date End Date Negrito Wilburn MD [address] [place] [address] PCP - General Family Medicine 08/20/18 Lorenza Major DO [address], [place] [id number] Cardiology 03/11/24 Medication Manager Relationship Specialty Start Date End Date Negrito Wilburn MD [address] [place] [address] PCP - General Family Medicine 08/20/18 Lorenza Major DO [address] [place] [address] Cardiology 03/11/24 Medication Manager Relationship Specialty Start Date End Date Negrito Wilburn MD [address] [place] [address] PCP - General Family Medicine 08/20/18 Medication Manager Relationship Specialty Start Date End Date Negrito Wilburn MD [address] [place] [address] PCP - General Family Medicine 08/20/18 Lorenza Major DO [address] [place] [address] Cardiology 03/11/24 Medication Manager Relationship Specialty Start Date End Date Negrito Wilburn MD [address] [place] [address] PCP - General Family Medicine 08/20/18 Lorenza Major DO [address] [place] [address] Cardiology 03/11/24 Medication Manager Relationship Specialty Start Date End Date Negrito Wilburn MD [address] [place] [address] PCP - General Family Medicine 08/20/18 Lorenza Major DO [address], [place] [id number] Cardiology 03/11/24 Medication Manager Relationship Specialty Start Date End Date Negrito Wilburn MD [address] [place] [address] PCP - General Family Medicine 08/20/18 Lorenza Major DO [address] [place] [address] Cardiology 03/11/24 Podlogar, Jessica, DIGITAL TECHNICIAN.INSPECTOR [employer] [address] [place] [address] Business Operations Coordinator Family Medicine 08/24/24 Medication Manager Relationship Specialty Start Date End Date Negrito Wilburn MD [address] [place] [address] PCP - General Family Medicine 08/20/18 Lorenza Major DO [address] [place] [address] Cardiology 03/11/24 Podlogar, Jessica, DIGITAL TECHNICIAN.INSPECTOR [employer] [address] [place] [address] Business Operations Coordinator Family Medicine 08/24/24 Medication Manager Relationship Specialty Start Date End Date Negrito Wilburn MD [address] [place] [address] PCP - General Family Medicine 08/20/18 Lorenza Major DO [address] [place] [address] Cardiology 03/11/24 Podlogar, Jessica, KALEB.INSPECTOR [employer] [address] [place] [address] [facility] 08/24/24 Jeanne Cotton, DIGITAL TECHNICIAN.INSPECTOR [employer] [address] [place] [address] [facility] 11/29/24 Medication Manager Relationship Specialty Start Date End Date Negrito Wilburn MD [address] [place] [address] PCP - General Family Medicine 08/20/18 Lorenza Major DO [address] [phone] Cardiology 03/11/24 Podlogar, Jessica, DIGITAL TECHNICIAN.INSPECTOR [employer] [address] [place] [address] [facility] 08/24/24 Jeanne Cotton DIGITAL TECHNICIAN.INSPECTOR [employer] [address] [place], [place] [address] [facility] 11/29/24 Medication Manager Relationship Specialty Start Date End Date Negrito Wilburn MD [address] [place] [address] PCP - General Family Medicine 08/20/18 Lorenza Major DO [facility] [place] [address] Cardiology 03/11/24 Podlogar, Jessica, DIGITAL TECHNICIAN.INSPECTOR [employer] [address] [place] [address] [facility] 08/24/24 Jeanne Cotton APRN.INSPECTOR [employer] [address] [place] [address] [facility] 11/29/24 Medication Manager Relationship Specialty Start Date End Date Negrito Wilburn MD [address] [place] [address] PCP - General Family Medicine 08/20/18 Lorenza Major DO [address] [place] [id number] Cardiology 03/11/24 PodlogarJessica APRN.INSPECTOR [employer] [address] [place] [address] [facility] 08/24/24 Jeanne Cotton APRN.INSPECTOR [employer] [address] [place] [address] [facility] 12/09/24 Medication Manager Relationship Specialty Start Date End Date Negrito Wilburn MD [address] [place] [address] PCP - General Family Medicine 08/20/18 Lorenza Major DO [address] [place] [phone] Cardiology 03/11/24 PodlogarJessica, DIGITAL TECHNICIAN.INSPECTOR [employer] [address] [place] [address] [facility] 08/24/24 Jeanne Cotton APRN.INSPECTOR [employer] [address] [place] [address] [facility] 12/09/24 Medication Manager Relationship Specialty Start Date End Date Negrito Wilburn MD [address] [place] [address] PCP - General Family Medicine 08/20/18 Lorenza Major DO [facility] [address], [place] [phone] Cardiology 03/11/24 Podlogar, KALEB Lopez.INSPECTOR [employer] [address] [place] [address] [facility] 08/24/24 Jeanne oCtton APRN.INSPECTOR [employer] [address] [place] [address] [facility] 12/09/24 Medication Manager Relationship Specialty Start Date End Date Negrito Wilburn MD [address] [place] [address] PCP - General Family Medicine 08/20/18 Lorenza Major DO [address], [place] [id number] Cardiology 03/11/24 Podlogar, KALEB Lopez.INSPECTOR [employer] [address] [place] [address] Business Operations Coordinator Family Medicine 08/24/24 Jeanne Cotton APRN.INSPECTOR [employer] [address] [place] [address] Business Operations Coordinator Family [facility] 12/09/24 Medication Manager Relationship Specialty Start Date End Date Negrito Wilburn MD [address] [place] [address] PCP - General Family Medicine 08/20/18 Lorenza Major DO [facility] [place] [address] Cardiology 03/11/24 Podlogar, Jessica, DIGITAL TECHNICIAN.INSPECTOR [employer] [address] [place] [address] Business Operations Coordinator Family Medicine 08/24/24 Jeanne Cotton, DIGITAL TECHNICIAN.INSPECTOR [employer] [address] [place] [address] Business Operations Coordinator [facility] Medicine 12/09/24 Medication Manager Relationship Specialty Start Date End Date Negrito Wilburn MD [address] [place] [address] PCP - General Family Medicine 08/20/18 Lorenza Major DO [address] [place] [id number] Cardiology 03/11/24 Podlogar, Jessica, DIGITAL TECHNICIAN.INSPECTOR [employer]BAG [employer] [address] [place] [address] [facility] 08/24/24 Medication Manager Relationship Specialty Start Date End Date Negrito Wilburn MD [address] [place], [place] [address] [phone] PCP - General Family Medicine 08/20/18 Lorenza Major DO [address] [place] [address] Cardiology 03/11/24 Podlogar, ALICIA LopezN.INSPECTOR [employer] [address] [place] [address] Business Operations Coordinator Family Medicine 08/24/24 Medication Manager Relationship Specialty Start Date End Date Negrito Wilburn MD [address] [place] [address] PCP - General Family Medicine 08/20/18 Lorenza Major DO [address] [place] [address] Cardiology 03/11/24 Podlogar, Jessica, DIGITAL TECHNICIAN.INSPECTOR [employer] [address] [place] [address] Business Operations Coordinator Family Medicine 08/24/24 Medication Manager Relationship Specialty Start Date End Date Negrito Wilburn MD [address] [place] [address] PCP - General Family Medicine 08/20/18 Lorenza Major DO [address] [place] [address] Cardiology 03/11/24 Podlogar, Jessica, DIGITAL TECHNICIAN.INSPECTOR [employer] [address] [place] [address] Business Operations Coordinator Family Medicine 08/24/24 Medication Manager Relationship Specialty Start Date End Date Negrito Wilburn MD [address] [place] [address] PCP - General Family Medicine 08/20/18 Lorenza Major DO [address] [place] [address] Cardiology 03/11/24 Podlogar, Jessica, DIGITAL TECHNICIAN.INSPECTOR [employer]AG [employer]AMES [address] [place] [address] Business Operations Coordinator Family Medicine 08/24/24 Medication Manager Relationship Specialty Start Date End Date Negrito Wilburn MD [address] [place] [address] PCP - General Family Medicine 08/20/18 Lorenza Major DO [address] [place] [address] Cardiology 03/11/24 Podlogar, Jessica, DIGITAL TECHNICIAN.INSPECTOR [employer] [address] [place] [address] Business Operations Coordinator Family Medicine 08/24/24 Medication Manager Relationship Specialty Start Date End Date Negrito Wilburn MD [address] [place] [address] PCP - General Family Medicine 08/20/18 Lorenza Major DO [address] [place] [address] Cardiology 03/11/24 Podlogar, Jessica, DIGITAL TECHNICIAN.INSPECTOR [employer] [address] [place] [address] [facility] 08/24/24 Jeanne Cotton APRN.INSPECTOR [employer] [address] [place], [place] [id number] [facility] 02/27/25 Medication Manager Relationship Specialty Start Date End Date Negrito Wilburn MD [address] [place] [address] PCP - General Family Medicine 08/20/18 Lorenza Major DO [facility] [address], [place] [id number] Cardiology 03/11/24 Podlogar, KALEB Lopez.INSPECTOR [employer]AMES [address] [place] [address] [facility] 08/24/24 Jeanne Cotton APRN.INSPECTOR [employer] [address] [place] [address] [facility] 02/27/25 Medication Manager Relationship Specialty Start Date End Date Negrito Wilburn MD [address] [place] [address] PCP - General Family Medicine 08/20/18 Lorenza Major DO [address] [place], [place] [id number] Cardiology 03/11/24 Podlogar, KALEB Lopez.INSPECTOR [employer]AMES [address] [place] [address] [facility] Medicine 08/24/24 Jeanne Cotton APRN.INSPECTOR [employer] [address] [place] [address] Business Operations Coordinator Family Medicine 02/27/25 Medication Manager Relationship Specialty Start Date End Date Negrito Wilburn MD [address] [place] [address] PCP - General Family Medicine 08/20/18 Lorenza Major DO [facility] [address], [place] [id number] Cardiology 03/11/24 Podlogar, ALICIA LopezN.INSPECTOR [employer] [address] [place] [address] Business Operations Coordinator Family Medicine 08/24/24 Jeanne Cotton APRN.INSPECTOR [employer] [address] [place] [address] Business Operations Coordinator Family Medicine 12/09/24 02/02/25 Jeanne Cotton APRN.INSPECTOR [employer] [address] [place] [address] [facility] 02/27/25 Medication Manager Relationship Specialty Start Date End Date Negrito Wilburn MD [address] [place] [address] PCP - General Family Medicine 08/20/18 Lorenza Major DO [facility] [address], [place] [phone] Cardiology 03/11/24 Podlogar, Jessica, DIGITAL TECHNICIAN.INSPECTOR HANDBAG FRAMES [facility] [place] [address] Business Operations Coordinator Family Medicine 08/24/24 Jeanne Cotton APRN.INSPECTOR [employer]AMES [address] [place] [id number] [facility] 12/09/24 02/02/25 Jeanne Cotton APRN.INSPECTOR [employer]AMES [address] [place] [address] [facility] 02/27/25 Team Status: Active Member Role/Relationship Status Dates Dr. Roger Wilburn MD Primary Care Provider Acti ve Team Status: Inactive Member Role/Relationship Status Dates Dr. Roger Wilburn MD Primary Care Provider Acti ve Start: April 02, 2025 End: April 03, 2025 Dr. Laz James DO Emergency Provider Active Start: April 02, 2025 End: April 03, 2025 Team Status: Inactive Member Role/Relationship Status Dates Dr. Roger Wilburn MD Primary Care Provider Acti ve Start: March 18, 2025 Dr. Josee Maynard MD Attending Provider Active Start: March 18, 2025 Team Status: Inactive Member Role/Relationship Status Dates Dr. Roger Wilburn MD Primary Care Provider Acti ve Start: April 02, 2025 End: April 03, 2025 Dr. Laz James DO Attending Provider Active Start: April 02, 2025 End: April 03, 2025 Dr. Laz James DO Emergency Provider Active Start: April 02, 2025 End: April 03, 2025 Team Status: Inactive Member Role/Relationship Status Dates Dr. Roger Wilburn MD Primary Care Provider Acti ve Start: April 08, 2025 End: April 08, 2025 Dr. Omer Hall MD Attending Provider Active Start: April 08, 2025 End: April 08, 2025 Dr. Omer Hall MD Referring Provider Active Start: April 08, 2025 End: April 08, 2025 Medication Manager Relationship Specialty Start Date End Date Negrito Wilburn MD [address] [place] [address] PCP - General Family Medicine 08/20/18 Lorenza Major DO [address] [place] [phone] Cardiology 03/11/24 PodlogarJessica, DIGITAL TECHNICIAN.INSPECTOR [employer] [address] [place] [address] Business Operations Coordinator Family Medicine 08/24/24 Jeanne Cotton DIGITAL TECHNICIAN.INSPECTOR [employer]AMES [address] [place] [address] Business Operations Coordinator Family Medicine 02/27/25 Medication Manager Relationship Specialty Start Date End Date Negrito Wilburn MD [address] [place] [address] PCP - General Family Medicine 08/20/18 Lorenza Major DO [address] [place] [address] Cardiology 03/11/24 PodlogarJessica, DIGITAL TECHNICIAN.INSPECTOR HAND[employer]AG [employer]AMES [address] [place] [address] Business Operations Coordinator Family Medicine 08/24/24 Jeanne Cotton DIGITAL TECHNICIAN.INSPECTOR [employer]AG [employer]AMES [address] [place] [address] Business Operations Coordinator Family Medicine 02/27/25 Medication Manager Relationship Specialty Start Date End Date Negrito Wilburn MD [address] [place] [address] PCP - General Family Medicine 08/20/18 Lorenza Major DO [facility] [address], [place] [phone] Cardiology 03/11/24 PodlogarJessica APRN.INSPECTOR HANDBAG [employer]AMES [address] [place] [address] Business Operations Coordinator Family Medicine 08/24/24 Jeanne Cotton APRN.INSPECTOR [employer] [address] [place] [address] Business Operations Coordinator Family Medicine 02/27/25 Medication Manager Relationship Specialty Start Date End Date Negrito Wilburn MD [address] [place] [address] PCP - General Family Medicine 08/20/18 Lorenza Major DO [facility] [address], [place] [id number] Cardiology 03/11/24 PodlogarJessica, DIGITAL TECHNICIAN.INSPECTOR HANDBAG [employer]AMES [address] [place] [address] Business Operations Coordinator Family Medicine 08/24/24 Jeanne Cotton APRN.INSPECTOR HANDB[employer]AMES [address] [place] [address] [facility] 02/27/25 Medication Manager Relationship Specialty Start Date End Date Negrito Wilburn MD [address] [place] [address] PCP - General Family Medicine 08/20/18 Lorenza Major [place] [facility] [place] [address] Cardiology 03/11/24 PodlogarJessica APRN.INSPECTOR HANDBAG [employer]AMES [address] [place] [address] [facility] 08/24/24 Jeanne Cotton APRN.INSPECTOR HANDBAG [employer]AMES [address] [place], [place] [address] [facility] 02/27/25 Medication Manager Relationship Specialty Start Date End Date Negrito Wilburn MD [address] [place], [place] [id number] PCP - General Family Medicine 08/20/18 Lorenza Major DO [address] [place] [address] Cardiology 03/11/24 PodlogarJessica APRN.INSPECTOR [employer]AG [employer]AMES [address] [place], [place] [address] [facility] 08/24/24 Jeanne Cotton, KALEB.INSPECTOR HANDBAG [employer]AMES [address] [place], [place] [address] [facility] 02/27/25 Goals (unrecognized section and content) Goals may be documented in a n alternate sectionGoals may be documented in an alternate sectionGoals may be documented in an alternate sectionGoals may be documented in an alternate section INFORMATION SOURCE (unrecogn ized section and content) DATE CREATED AUTHOR 10/21/2023 [facility]ter DATE CREATED AUTHOR AUTHOR'S ORGANIZ ATION 03/13/2024 [facility] DATE CREATED AUTHOR AUTHOR'S ORGANIZ ATION 04/15/2025 [facility] DATE CREATED AUTHOR AUTHOR'S ORGANIZ ATION 06/03/2025 [facility] FOR RECORDS PERTAINING TO PATIENTS WHO ARE [...] BE BASED ON THE PRIMARY CLINICAL RECORDS. [email or web address] [facility]. provides no warranty or guarantee of the accuracy or completeness of information in this document.
== END | disposition home or self-care (01) ==
PROVIDERS: PCP Family Medicine; Referring Provider Anesthesiology Pain Medicine; Visit Provider Anesthesiology Pain Medicine
DX: F11.20 Opioid dependence, uncomplicated (principal)
CPT/HCPCS: 80307